=== PATIENT | female | born 1985 | race Caucasian/White ===

== ENCOUNTER → 2018-03-25 15:26 | Outpatient (CLI) | payer BC, SELFPAY ==
[2018-03-25 16:22] LABS: Free T3 2.2 pg/mL (2.18-3.98); T4 Free Direct 0.95 ng/dL (0.76-1.46)
== END ==
PROVIDERS: Visit Provider Obstetrics & Gynecology
DX: N92.1 Excessive and frequent menstruation with irregular cycle (principal)
CPT/HCPCS: 36415; 84439; 84443; 84481

== ENCOUNTER → 2018-03-28 14:00 | Outpatient (CLI) | payer BC, SELFPAY ==
[2018-03-28 15:58] LABS: Progesterone Level 0.89 ng/mL (See Comment)
== END ==
PROVIDERS: Visit Provider Obstetrics & Gynecology
DX: N92.1 Excessive and frequent menstruation with irregular cycle (principal)
CPT/HCPCS: 36415; 84144

== ENCOUNTER → 2018-07-23 07:47 | Outpatient (CLI) | payer BC, SELFPAY ==
--- NOTE | 2018-07-23 07:51 | US_ITS ---
STUDY: ULTRASOUND OF THE FEMALE PELVIS - COMPLETE REASON FOR EXAM: Female, 32 years old. Pelvic pain. Irregular menstruations. LMP: April 17, 2018. TECHNIQUE: Transabdominal and Transvaginal TECHNICAL QUALITY: Adequate. COMPARISON: Comparison is made with prior MRI of the pelvis dated February 29, 2016. 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 There are 2 cervixes and 2 uterine horns. The right uterus measures 5.5 cm x 3.3 cm x 2.1 cm. The endometrium measures 9 mm in thickness. The left uterus measures 5.7 cm x 3.4 cm x 2.4 cm. The endometrium measures 5.4 cm. Both cervixes were visualized and are unremarkable. The right ovary is visualized. The right ovary measures 5.4 cm x 3.4 cm x 4.1 cm. There is a 2.2 cm x 2.3 cm x 1.8 cm cyst in the right ovary. There is no visualized right adnexal mass or complex lesion. There is normal arterial and normal venous vascularity. The left ovary is visualized. The left ovary measures 3 cm x 2.5 cm x 1.8 cm. A dominant follicle measuring 1.8 cm x 1.8 cm x 1.3 cm is seen within the left ovary. There is no visualized left adnexal mass or complex lesion. There is normal arterial and normal venous vascularity. There is no fluid in the cul-de-sac. The pre void volume of the bladder was 325 ml. Polycystic ovary disease: No. US/Transvaginal Non- IMPRESSION: Uterus didelphys. Right ovarian cyst. Electronically Signed: Sebastien Kruger MD at 8:42 EST , Service support ,
--- NOTE | 2018-07-23 07:51 | US_ITS ---
STUDY: ULTRASOUND OF THE FEMALE PELVIS - COMPLETE REASON FOR EXAM: Female, 32 years old. Pelvic pain. Irregular menstruations. LMP: April 17, 2018. TECHNIQUE: Transabdominal and Transvaginal TECHNICAL QUALITY: Adequate. COMPARISON: Comparison is made with prior MRI of the pelvis dated February 29, 2016. 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 There are 2 cervixes and 2 uterine horns. The right uterus measures 5.5 cm x 3.3 cm x 2.1 cm. The endometrium measures 9 mm in thickness. The left uterus measures 5.7 cm x 3.4 cm x 2.4 cm. The endometrium measures 5.4 cm. Both cervixes were visualized and are unremarkable. The right ovary is visualized. The right ovary measures 5.4 cm x 3.4 cm x 4.1 cm. There is a 2.2 cm x 2.3 cm x 1.8 cm cyst in the right ovary. There is no visualized right adnexal mass or complex lesion. There is normal arterial and normal venous vascularity. The left ovary is visualized. The left ovary measures 3 cm x 2.5 cm x 1.8 cm. A dominant follicle measuring 1.8 cm x 1.8 cm x 1.3 cm is seen within the left ovary. There is no visualized left adnexal mass or complex lesion. There is normal arterial and normal venous vascularity. There is no fluid in the cul-de-sac. The pre void volume of the bladder was 325 ml. Polycystic ovary disease: No. US/Pelvic (Non ) IMPRESSION: Uterus didelphys. Right ovarian cyst. Electronically Signed: Sebastien Kruger MD at 8:42 EST , Service support ,
== END ==
PROVIDERS: Family Provider Family Medicine; PCP Family Medicine; Referring Provider Family Medicine; Visit Provider Family Medicine
DX: N92.6 Irregular menstruation, unspecified (principal)
CPT/HCPCS: 76830; 76856; 93976

== ENCOUNTER → 2018-07-25 10:51 | Outpatient (CLI) | payer BC, SELFPAY ==
[2018-07-25 12:48] LABS: Estradiol 25.1 pg/mL; Follicle Stimulating Hormone 9.9 mIU/mL; Free T3 2.7 pg/mL (2.18-3.98); Luteinizing Hormone 9.5 mIU/mL; T4 Free Direct 1.07 ng/dL (0.76-1.46); Thyroid Stim Hormone (TSH) 1.56 uIU/mL (0.358-3.74)
[2018-07-26 10:29] LABS: Insulin 10.6 mU/L (2.6-37.6); Progesterone Level 2.47 ng/mL (See Comment)
[2018-07-27 20:07] LABS: Testosterone, % Free 1.25 % (0.50-2.80); Testosterone, Free < 0.04 ng/dL (0.10-0.85); Testosterone, Total < 3 ng/dL (8-48)
[2018-07-28 14:24] LABS: DHEA Sulfate 121.7 ug/dL (84.8-378.0)
== END ==
PROVIDERS: Family Provider Family Medicine; PCP Family Medicine; Visit Provider Family Medicine
DX: R53.83 Other fatigue (principal); N92.1 Excessive and frequent menstruation with irregular cycle
CPT/HCPCS: 36415; 82627; 82670; 83001; 83002; 83525; 84144; 84402; 84403; 84439; 84443; 84481; 82626

== ENCOUNTER → 2019-06-03 14:49 | Outpatient (CLI) | payer BC, SELFPAY | PROVIDERS: Family Provider Family Medicine; PCP Family Medicine; Visit Provider Family Medicine | DX: N39.0 Urinary tract infection, site not specified (principal) | CPT/HCPCS: 87077; 87086; 87088; 87186 ==

== ENCOUNTER → 2019-06-24 16:30 | Outpatient (CLI) | payer BC, SELFPAY ==
[2019-06-28 15:24] LABS: HPV APTIMA, High Risk Negative (Negative); HPV Reflexed? YES, CHARGE PATIENT
== END ==
PROVIDERS: Visit Provider Obstetrics & Gynecology
DX: Z12.4 Encounter for screening for malignant neoplasm of cervix (principal)
CPT/HCPCS: 87624; 88175; G0145

== ENCOUNTER → 2019-08-28 14:51 | Outpatient (CLI) | payer OTHER, SELFPAY ==
--- NOTE | 2019-08-28 15:12 | RAD_ITS ---
STUDY: HYSTEROSALPINGOGRAM. REASON FOR EXAM: Female, 34 years old. Infertility FLUOROSCOPY TIME (if supplied): ( 2 minutes ) minutes/seconds TECHNIQUE: A hysterosalpingogram was performed by the stone finisher. Imaging was performed. COMPARISON: None. FINDINGS: There is evidence of a uterus didelphys. The right side of the uterus was catheterized. The right fallopian tube is patent with free spill. Catheterization of the left side demonstrating a connection within a tubular structure most likely representing the left ureter. RAD/Salpingogram IMPRESSION: Uterus didelphys with patency of the right fallopian tube. Tubular structure on the left side suggestive of connection with the left ureter. Electronically Signed: Sebastien Kruger, at 8:07 EDT , Service support ,
== END ==
PROVIDERS: PCP Family Medicine; Referring Provider Obstetrics & Gynecology; Visit Provider Obstetrics & Gynecology
DX: N70.91 Salpingitis, unspecified (principal)
CPT/HCPCS: 58340; 74740; Q9967

== ENCOUNTER → 2020-01-13 13:33 | Outpatient (CLI) | payer OTHER, SELFPAY | PROVIDERS: PCP Family Medicine; Visit Provider Family Medicine Hospice and Palliative Medicine | DX: Z11.59 Encounter for screening for other viral diseases (principal) | CPT/HCPCS: 87635; 94799; U0003 ==

== ENCOUNTER → 2020-10-11 09:03 | Outpatient (CLI) | payer BC, SELFPAY ==
--- NOTE | 2020-10-11 09:15 | RAD_ITS ---
STUDY: X-RAY - ABDOMEN/PELVIS REASON FOR EXAM: Female, 35 years old. ANORECTAL MALFORMATION TECHNIQUE: Single AP view of the abdomen / pelvis. COMPARISON: None. FINDINGS: Normal visualized lung bases. There is an abundance of fecal material throughout the colon. A catheter is seen in the left mid abdomen. The visualized liver, spleen and kidneys are grossly normal in size and morphology. Normal soft tissue structures. Normal visualized osseous structures. RAD/Abdomen Single View IMPRESSION: Large amount of fecal material is seen in the colon. Electronically Signed: Sebastien Kruger MD at 13:31 EDT , Service support ,
== END ==
PROVIDERS: PCP Family Medicine
DX: Q43.9 Congenital malformation of intestine, unspecified (principal)
CPT/HCPCS: 74018

== ENCOUNTER 2021-01-03 10:07 | Emergency (ER) | payer BC, SELFPAY ==
[2021-01-03 10:08] VITALS: BP 110/63; PULSE 108; RESP 18; TEMP 37; O2SAT 97; BMI 26.3
--- NOTE | 2021-01-03 10:24 | CT_ITS ---
STUDY: CT ABDOMEN AND PELVIS WITHOUT CONTRAST REASON FOR EXAM: Female, 35 years old. Left-sided flank pain. UTI. RADIATION DOSAGE (If Supplied By Facility): CTDIvol = ( 7.18 ) mGy, DLP = ( 376.96 ) mGycm TECHNIQUE: Transaxial images were obtained from the dome of the diaphragm to the symphysis pubis without oral contrast, and without intravenous contrast. Sagittal and coronal images were reconstructed. Individualized dose optimization techniques were used for this CT. COMPARISON: Comparison is made with prior examination 03/25/2016. FINDINGS: The visualized lung bases are unremarkable. The visualized portions of the heart are within normal limits. Normal liver. Normal gallbladder and extrahepatic biliary system. Normal spleen. Normal pancreas. Normal bilateral adrenal glands. 6 mm calculus in the anterior lower pole calyx of the right kidney. 2.5 mm calculus in the upper mid pole calyx of the left kidney. Stable bilateral extrarenal pelves/mild hydronephrosis. Normal visualized stomach. Normal small intestine. Normal colon. The appendix is visualized and appears normal. Normal abdominal aorta. Normal inferior vena cava. Normal retroperitoneum. Diffuse thickening of the urinary bladder wall slightly worse on the left side. The previously seen complex cystic mass in the right adnexa and pelvis has decreased in size. It presently measures 6.4 cm x 3.5 cm. The patient is known to have uterine duplication. A catheter is seen entering the region of the umbilicus into mid jejunal bowel loops. There is evidence of an anastomotic site in the mid jejunum. Normal abdominal wall. Normal osseous structures. CT/Abdomen/Pelvis without Cont IMPRESSION: Small bilateral nonobstructive intrarenal calculi. Persistent complex cystic mass in the right adnexa although it has decreased in size as compared to prior study. Electronically Signed: Sebastien Kruger MD at 12:24 EDT , Service support ,
--- NOTE | 2021-01-03 10:26 | RAD_ITS ---
STUDY: X-RAY CHEST REASON FOR EXAM: Female, 35 years old. Cough TECHNIQUE: PA and lateral views of the chest. COMPARISON: Comparison is made with prior study dated 03/26/2016. FINDINGS: The lungs are clear and expanded. There is no demonstrated pleural abnormality. Normal size heart. Normal mediastinum and radha. Normal visualized pulmonary arteries. Normal visualized aortic arch and descending thoracic aorta. There is a dextroscoliosis of the thoracic spine. Normal visualized ribs, clavicles, and shoulders. There is no demonstrated abnormality of the visualized soft tissue structures of the upper abdomen. RAD/Chest PA and Lateral IMPRESSION: No acute abnormality is seen. Electronically Signed: Sebastien Kruger MD at 12:25 EDT , Service support ,
--- NOTE | 2021-01-03 10:35 | ED.VIS.GI ---
HPI HPI - GI History of Present Illness Chief Complaint: Flank Pain Narrative Narrative: Patient presenting for evaluation secondary to fevers, cough, nausea vomiting, abdominal pain and flank pain. Patient has a underlying history of multiple abdominal surgeries secondary to congenital GI and history. Patient reports that since Sunday, 6 days ago she has been dealing with fevers at home as high as 103. She reports that these will intermittently break with use of antipyretics such as Tylenol and ibuprofen. She reports that its been associated with a nonproductive cough, she had a coronavirus test performed on Sunday but has not had the results. Patient's also states that its been associated with nausea, and vomiting. Emesis is nonbloody nonbilious she denies any diarrhea she does have some suprapubic and left-sided flank pain. No exacerbating relieving factors with this she states that she has a known history of a kidney stone in her right kidney. She denies any hematuria. She denies any dysuria associated with this. Review of systems otherwise negative. [facility] Medical History (Updated 01/03/21 @ 12:[address] 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 UTI (urinary tract infection) Home Medications bupropion HCl [Wellbutrin SR] 150 mg PO DAILY 01/03/21 [History Last Taken Unknown] cefdinir 300 mg PO BID #20 cap 01/03/21 [Rx Last Taken Unknown] ondansetron 8 mg PO Q8H PRN PRN #20 tab 01/03/21 [Rx Last Taken Unknown] Allergy/AdvReac Type Severity Reaction Status Date / Time ampicillin Allergy Hives Verified 01/03/21 10:08 Social History Smoking Status: Never smoker ROS ROS ED Constitutional Constitutional ED: Reports chills, fever(s) and sweats ENT ENT ED: Denies sore throat Cardiovascular Cardiovascular: Denies chest pain Respiratory/Chest Respiratory/Chest: Reports cough Gastrointestinal Gastrointestinal: Reports abdominal pain, nausea and vomiting Genitourinary Genitourinary ED: Denies dysuria, hematuria or urinary frequency Musculoskeletal Musculoskeletal: Denies myalgias Integumentary Denies rash Neurologic Neurologic: Denies paresthesias or weakness Psychiatric Psychiatric: Denies depression Endocrine Endocrinology: Denies polyuria Hematologic/Lymphatic Hematologic/Lymphatic: Denies easy bleeding or easy bruising Allergic/Immunologic Allergic/Immunologic ED: Denies urticaria EXAM Physical Exam Const Vital Signs: 01/03/21 10:08 01/03/21 11:03 01/03/21 12:19 Temperature 98.6 F 99.6 F H 98.5 F Temperature Source Temporal Oral Oral Pulse Rate 108 H 91 91 Respiratory Rate 18 20 H 20 H Blood Pressure 110/63 122/68 H 121/70 H Blood Pressure Mean 78 86 87 Pulse Ox 97 98 100 Oxygen Delivery Method Room Air Room Air Room Air Positive well nourished and well developed General Appearance ED: well developed and NAD HEENT Reports dry mucous membranes normocephalic and atraumatic Mouth ED: Yes dry mucous membranes Mouth: dry mucous membranes Eyes EOMs intact bilaterally General Eye ED: Negative for pale conjunctiva or scleral icterus Neck no lymphadenopathy and supple Resp normal respiratory effort and clear to auscultation bilaterally Cardio regular rate, regular rhythm, no murmurs and peripheral pulses 2+ throughout GI non-distended and no masses Palpation: soft and tender suprapubic; Negative for guarding, rigid or rebound tenderness present Back/Spine no CVA tenderness Back/Spine Narrative: Well-healed incision over the lumbar spine Extremity full ROM General Extremety ED: Negative for edema General Extremity: Negative for edema Neuro moves all extremities and no sensory deficits noted Sensorium / Orientation: alert, oriented to person, oriented to place and oriented to time Motor Exam: strength 5/5 throughout Psych mental status grossly normal Skin Rashes: no rashes MDM MDM MDM Narrative Medical decision making narrative: Patient presented for evaluation secondary to a febrile illness. Sepsis work-up was obtained as she was tachycardic and likely has an infection. IV was established patient was given Toradol fluids and Zofran. Patient was noted to have a leukocytosis of 14,000 with a neutrophilic predominance. Urinalysis demonstrated significant infection with 25-50 white cells with positive nitrates and 2+ bacteria. test was found to be negative. Chemistry does show the patient to be slightly hypokalemic at 3.1, patient was recommended to increase her potassium intake. Patient's lactic acid was found to be within normal limits. Chest x-ray by my personal review as well as radiology was negative. CT abdomen and pelvis per radiology shows no signs of obstructive uropathy, and shows chronic changes with the patient's pelvic cystic mass actually improved in size. Patient is nontoxic-appearing, she does technically meet sepsis criteria but she is otherwise healthy and I do not think that she requires admission. She was given a first dose of Rocephin in the emergency department. Patient be sent home with a course of cefdinir and Zofran. She was educated on signs and symptoms which to return. Patient was discharged in improved condition. Lab Data Labs: Laboratory Results - last 24 hr 01/03/21 01/03/21 01/03/21 10:55 11:00 11:00 WBC 14.1 H RBC 4.48 Hgb 13.5 Hct 41.7 MCV 93.1 MCH 30.1 MCHC 32.4 RDW Std Deviation 44.9 H RDW Coeff of Alexander 13.1 Plt Count 242 MPV 10.4 Immature Gran % (Auto) 0.400 Neut % (Auto) 78.1 H Lymph % (Auto) 10.3 L [place] % (Auto) 11.0 H Eos % (Auto) 0.0 Baso % (Auto) 0.2 Absolute Neuts (auto) 11.0 H Absolute Lymphs (auto) 1.46 Nucleated RBC % 0 [address] Review May foll Sodium Potassium Chloride Carbon Dioxide Anion Gap BUN Creatinine Estim Creat Clear Calc Est GFR (MDRD) Af Amer Est GFR (MDRD) Non-Af BUN/Creatinine Ratio Glucose Lactic Acid 1.6 Calcium Urine Color Yellow Urine Clarity Sl. Cloudy Urine pH 6.0 Ur Specific [place] 1.015 Urine Protein 30 H Urine Glucose (UA) Normal Urine Ketones 50 H Urine Occult Blood 150 H Urine Nitrite Positive H Urine Bilirubin Negative Urine Urobilinogen Normal Ur Leukocyte Esterase 500 H Urine RBC 10-25 SEEN Urine WBC 25-50 SEEN Ur Squamous Epith Cells 0-5 SEEN Urine Bacteria 2+ Urine Mucus 2+ Urine Test Negative 01/03/21 11:00 WBC RBC Hgb Hct MCV MCH MCHC RDW Std Deviation RDW Coeff of [place] Plt Count MPV Immature Gran % (Auto) Neut % (Auto) Lymph % (Auto) [place] % (Auto) Eos % (Auto) Baso % (Auto) Absolute Neuts (auto) Absolute Lymphs (auto) Nucleated RBC % Diff Path Review Sodium 135 L Potassium 3.1 L Chloride 100 Carbon Dioxide 27.0 Anion Gap 8 BUN 12 Creatinine 1.19 H Estim Creat Clear Calc 57.52 Est GFR (MDRD) Af Amer 67 Est GFR (MDRD) Non-Af 55 L BUN/Creatinine Ratio 10.1 Glucose 89 Lactic Acid Calcium 8.9 Urine Color Urine Clarity Urine pH Ur Specific [place] Urine Protein Urine Glucose (UA) Urine Ketones Urine Occult Blood Urine Nitrite Urine Bilirubin Urine Urobilinogen Ur Leukocyte Esterase Urine RBC Urine WBC Ur Squamous Epith Cells Urine Bacteria Urine Mucus Urine Test Radiography Diagnostic Testing: Radiology Impression Abdomen/Pelvis CT 01/03/21 10:24 IMPRESSION: Small bilateral nonobstructive intrarenal calculi. Persistent complex cystic mass in the right adnexa although it has decreased in size as compared to prior study. Electronically Signed: Sebastien Kruger MD at 12:24 EDT , Service support , Chest X-Ray 01/03/21 10:26 IMPRESSION: No acute abnormality is seen. Electronically Signed: Sebastien Kruger MD at 12:25 EDT , Service support , Discharge Plan Triage Chief Complaint: Flank Pain ED Provider: Bradley Fofana Dx/Rx/DC Orders Clinical Impression: Pyelonephritis, Hypokalemia Instructions: ED Hypokalemia, ED Pyelonephritis, Female (Adult) Prescriptions: New cefdinir 300 mg capsule 300 mg PO BID Qty: 20 RF: 0 ondansetron 4 mg tablet,disintegrating 8 mg PO Q8H PRN PRN (Reason: Nausea) Qty: 20 RF: 0 No Action bupropion HCl [Wellbutrin SR] 150 mg Tablet Sustained-Release 12 Hr 150 mg PO DAILY RF: 0 Primary Care Provider: Imani Helm Referrals: Imani Helm DO [Primary Care Provider] - 2 Days Disposition Disposition: Home, Self Care
[2021-01-03] MEDS: 0.9% Normal Saline 1,000 ML 1000 ML IV (10:56)
[2021-01-03] MEDS: Ondansetron 4 MG/2 ML Vial IV (10:57)
[2021-01-03] MEDS: Ketorolac 15 MG/ML Vial IV (10:57)
--- NOTE | 2021-01-03 11:02 | ED.RN ---
Pt self-cathed to obtain urine sample
[2021-01-03 11:03] VITALS: BP 122/68; PULSE 91; RESP 20; TEMP 37.6; O2SAT 98
[2021-01-03 11:20] LABS: Absolute Lymphocyte Count 1.46 X10^3/uL (0.83-4.51); Basophil# 0.03 X10^3/uL; Basophil% 0.2 % (0-1); Hematocrit 41.7 % (37-47); Hemoglobin 13.5 g/dL (12.0-15.0); Lymphocyte # 1.46 X10^3/ul (0.83-4.51); Lymphocyte % 10.3 % (19-41); Mean Corp Hgb Conc 32.4 g/dL (32-36); Mean Corpuscular Hgb 30.1 pg (27.0-32.0); Mean Corpuscular Volume 93.1 fL (81-99); Mean Platelet Vol. 10.4 fl (6.2-12.0); Monocyte# 1.55 X10^3/uL; NRBC Flagged by Analyzer 0 % (0-5); Neutrophil # 11.01 X10^3/uL (2.7-7.7); Neutrophil % 78.1 % (47-70); POSITIVE DIFFERENTIAL YES; Platelet Count 242 K/mm3 (150-450); RBC Distribution Width CV 13.1 % (11.6-14.6); RBC Distribution Width SD 44.9 fl (35.1-43.9); Red Blood Count 4.48 M/mm3 (4.2-5.4); White Blood Count 14.1 K/mm3 (4.4-11.0)
[2021-01-03 11:34] LABS: Color, Urine Yellow (Yellow); Glucose, Dipstick Normal (Normal); Ketone-Dipstick 50 mg/dl (Negative); Leukocyte Esterase-Dipstick 500 /ul (Negative); Nitrite-Dipstick Positive (Negative); Occult Blood-Urine 150 /ul (Negative); Protein-Dipstick 30 mg/dl (Negative); Specific Gravity, Urine 1.015 (1.002-1.030); Urine Bilirubin Dipstick Negative (Negative); Urine Clarity Sl. Cloudy (Clear); Urine Urobilinogen Normal (Normal)
[2021-01-03 11:34] LABS: Anion Gap 8 (5-15); BUN 12 mg/dL (7-18); BUN/Creat Ratio 10.1 RATIO (10-20); Calcium,Total 8.9 mg/dL (8.5-10.1); Chloride 100 mmol/L (98-107); Creatinine, Serum 1.19 mg/dL (0.55-1.02); EST Glomerular Filtration Rate 55 mL/min (>60); Est Glom Filt Rate - Afr Amer 67 mL/min (>60); Estimated Creatinine Clearance 57.52 ml/min; Glucose 89 mg/dL (74-106); Potassium 3.1 mmol/L (3.5-5.1); Sodium Level 135 mmol/L (136-145)
--- NOTE | 2021-01-03 11:36 | ED.RN ---
Pt states that she needs to go home and check on her son. Signed out AMA
[2021-01-03 11:40] LABS: Bacteria 2+ /hpf (None Seen); Internal QC Validated? YES +Cl - CLEAR BKGD; Mucous, Urine 2+ /hpf (<or=2+); Pregnancy, Urine Negative Negative; Red Blood Cells-Urine 10-25 SEEN /hpf (0-5); Squamous Epithelial Cells - UA 0-5 SEEN /hpf (5-10); White Blood Cells 25-50 SEEN /hpf (0-5)
[2021-01-03 11:44] LABS: Lactic Acid 1.6 mmol/L (0.4-1.9)
[2021-01-03 11:49] LABS: Differential Indicated SCAN CRITERIA MET
[2021-01-03 12:19] VITALS: BP 121/70; PULSE 91; RESP 20; TEMP 36.9; O2SAT 100
[2021-01-03] MEDS: Ceftriaxone 1 GM/50 ML BAG IV (13:56)
[2021-01-03 14:34] VITALS: BP 114/65; PULSE 83; RESP 16
[2021-01-04 12:40] LABS: Pathologist Review Reviewed
== END 2021-01-03 14:35 | disposition home or self-care (01) ==
PROVIDERS: Emergency Provider Emergency Medicine; PCP Family Medicine
DX: N12 Tubulo-interstitial nephritis, not specified as acute or chronic (principal); E87.6 Hypokalemia; N20.0 Calculus of kidney; Q06.8 Other specified congenital malformations of spinal cord; Z79.899 Other long term (current) drug therapy
CPT/HCPCS: 36415; 71046; 74176; 80048; 81001; 81025; 83605; 85025; 87040; 87086; 87088; 87186; 96361; 96365; 96375; 99283; A4216; J2405

== ENCOUNTER → 2024-10-24 | Outpatient (CLI) | payer BC, SELFPAY ==
[2024-10-27 22:06] LABS: Chlamydia By Nucleic Acid AMP Negative (Negative); Gonococcus By Nucleic Acid AMP Negative (Negative)
== END | disposition home or self-care (01) ==
LOC: LABSPEC 15:21
PROVIDERS: PCP Family Medicine; Referring Provider Obstetrics & Gynecology; Visit Provider Obstetrics & Gynecology
DX: O09.90 Supervision of high risk pregnancy, unspecified, unspecified trimester (principal); Z3A.00 Weeks of gestation of pregnancy not specified
CPT/HCPCS: 87077; 87086; 87088; 87186; 87491; 87591

== ENCOUNTER → 2024-10-30 | Outpatient (CLI) | payer BC, SELFPAY ==
[2024-10-30 12:15] LABS: Absolute Lymphocyte Count 2.06 X10^3/uL (0.83-4.51); Absolute Neutrophil Count 5.6 X10^3/uL (2.0-7.7); Basophil# 0.05 X10^3/uL; Basophil% 0.6 % (0-1); Eosinophil# 0.08 X10^3/uL; Eosinophils% 0.9 % (0-5); Hematocrit 41.8 % (37-47); Hemoglobin 13.7 g/dL (12.0-15.0); Lymphocyte # 2.06 X10^3/ul (0.83-4.51); Lymphocyte % 24.3 % (19-41); Mean Corp Hgb Conc 32.8 g/dL (32-36); Mean Corpuscular Hgb 30.3 pg (27.0-32.0); Mean Corpuscular Volume 92.5 fL (81-99); Mean Platelet Vol. 10.5 fl (6.2-12.0); Monocyte# 0.67 X10^3/uL; Monocyte% 7.9 % (0-10); NRBC Flagged by Analyzer 0 % (0-5); Neutrophil # 5.61 X10^3/uL (2.7-7.7); Neutrophil % 66.1 % (47-70); Platelet Count 320 K/mm3 (150-450); RBC Distribution Width CV 12.9 % (11.6-14.6); RBC Distribution Width SD 43.1 fl (35.1-43.9); Red Blood Count 4.52 M/mm3 (4.2-5.4); White Blood Count 8.5 K/mm3 (4.4-11.0)
[2024-10-30 13:20] LABS: HIV Nonreactive (Nonreactive); Hepatitis B Surface Antigen Nonreactive (Nonreactive); Hepatitis C Antibody Nonreactive (Nonreactive); Rubella IgG REAC (Nonreactive); Syphilis Antibodies Nonreactive (Nonreactive)
== END | disposition home or self-care (01) ==
PROVIDERS: PCP Family Medicine; Referring Provider Obstetrics & Gynecology; Visit Provider Obstetrics & Gynecology
DX: O99.280 Endocrine, nutritional and metabolic diseases complicating pregnancy, unspecified trimester (principal); Z3A.00 Weeks of gestation of pregnancy not specified; E03.9 Hypothyroidism, unspecified
CPT/HCPCS: 36415; 84439; 84443; 85025; 86703; 86762; 86780; 86803; 86850; 86900; 86901; 87340

== ENCOUNTER → 2024-11-06 | Outpatient (CLI) | payer BC, SELFPAY | END | disposition home or self-care (01) | LOC: LABSPEC 14:58 | PROVIDERS: PCP Family Medicine; Referring Provider Obstetrics & Gynecology; Visit Provider Obstetrics & Gynecology | DX: O23.40 Unspecified infection of urinary tract in pregnancy, unspecified trimester (principal); Z3A.00 Weeks of gestation of pregnancy not specified | CPT/HCPCS: 87086 ==

== ENCOUNTER → 2024-11-18 | Outpatient (CLI) | payer BC, SELFPAY ==
--- NOTE | 2024-11-18 14:25 | US_ITS ---
PROCEDURE: TRANSVAGINAL W/PREG US 11/18/2024 REASON FOR EXAM: SPOTTING IN EARLY TECHNIQUE: High resolution obstetric ultrasound performed using a 2D transducer. Transvaginal ultrasound imaging. Standard views obtained, including biometry, anatomy survey, and Doppler studies. COMPARISON: None FINDINGS Live intrauterine with gestational sac measuring 5.3 cm corresponding with gestational age of 11 weeks and 1 day. Shape of the gestational sac is within normal limits. Yolk sac is not visualized at this time. Embryo CRL measures 6.45 cm corresponding with gestational age of 12 weeks and 5 days. heart rate of 164 beats per minute. Overall estimated gestational age of 12 weeks and 0 days with estimated delivery date of 06/02/2025. Uterus measures 15.8 x 9.4 x 6.7 cm. No fibroids. Cervix is closed. No significant fluid within the cul-de-sac. Bilateral ovaries are not well visualized. US/Transvaginal w/Preg US IMPRESSION: Live intrauterine gestational with sonographic gestational age of 12 weeks and 0 days with estimated delivery date of 06/02/2025. No sonographic evidence of significant abnormalities. Bilateral o varies are not well seen. Reading Location: [id number]
== END | disposition home or self-care (01) ==
LOC: US 14:25
PROVIDERS: PCP Family Medicine; Referring Provider Nurse Practitioner Women's Health; Visit Provider Nurse Practitioner Women's Health
DX: O26.851 Spotting complicating pregnancy, first trimester (principal); Z3A.11 11 weeks gestation of pregnancy; O99.891 Other specified diseases and conditions complicating pregnancy; R30.0 Dysuria
CPT/HCPCS: 76817; 87077; 87086; 87088; 87186

== ENCOUNTER → 2024-12-03 | Outpatient (CLI) | payer BC, SELFPAY ==
--- OUTSIDE RECORDS SUMMARY | 2024-12-03 22:31 | XMS RPT_ITS | CCD ---
Author Organization [facility] Care Team Providers Care 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 Name Role Phone MERLIN CALDERA Attending Unavailable MERLIN CALDERA Primary Care Unavailable MERLIN CALDERA Admitting Unavailable Malys DO, Imani Gary Primary Care Provider [phone] Malys DO, Imani A Primary Care Provider Malys DO, Imani A Primary Care Provider Malys DO, Imani A Primary Care Provider SOREN SEBASTIAN Referring Unavailabl e SOREN SEBASTIAN Attending Unavailabl e MALYS, IMANI A Primary Care Unavailable CENE CITY PLANNER~[phone], EDINSON Tuttle Admitting Unavailable CENE CITY PLANNER~[phone], EDINSON Tuttle Attending Unavailable MALYS, IMANI A Primary Care Unavailable ISRRAEL MART~[phone], ISRRAEL An Admitting Unavailable ISRRAEL MART~[phone], ISRRAEL nA Attending Unavailable TONE GAGE CRNAIA L Consulting Unavaila ble MALYS, IMANI A Primary Care Unavailable MARONI SLICING MACHINE TENDER MELVIN L Consulting Unavaila ble LEONIE MART, ISIDRA Consulting Unavailable LEONIE MART, ISIDRA Consulting Unavailable MALYS, IMANI A Primary Care Unavailable DUDZIAK, STUART Referring Unavailable MALYS, IMANI A Primary Care Unavailable DUDZIAK, STUART Referring Unavailable DUDZIAK, STUART Referring Unavailable MALYS, IMANI A Primary Care Unavailable MALYS, IMANI A Primary Care Unavailable DUDZIAK, STUART Referring Unavailable Malys, Imani A Primary Care Provider MANUEL SORTO Attending Unavailable JESSE EDWARDS Referring Unavailable CHAITANYA AKINS Referring UnavailANDRES Santizo Attending Unavailable CHAITANYA AKINS Referring Unavailabl e ANDRES FITZGERALD Referring Unavailable CARLOS AKISHRIAON, JESSE Referring Unavailable Malys , Dr. Diallo Primary Care Provider [phone] Alicja DO, Dr. Diallo Referring Provider Beatriz MART, Dr. Bright Attending Provider Bear Brenner DO, Dr. Valerio Attending Provider Beatriz MART, Dr. Bright Referring Provider [phone] Franklin DREDGE CAPTAIN-C, Jesse Attending Provider [phone] Yuliet DREDGE CAPTAIN-C, Jesse Referring Provider [phone] MALYS, IMANI A Primary Care Unavailable SANTIAGO WELLS Attending Unavailable MARCANTHONY, KAILA E Referring Unavailabl e MALYS, IMANI A Primary Care Unavailable SANTIAGO WELLS Attending Unavailable MARCANTHONY, KAILA Azar Referring Unavailabl e Malys, Imani Referring Unavailable Marcanthony, Kaila Attending Unavailable Malys, Imani Primary Care Unavailable Malys, Imani Referring Unavailable Velde, Iman Sifuentes Attending Unavailabl e Malys, Imani Primary Care Unavailable Malys, Imani Referring Unavailable Marcanthony, Kaila Attending Unavailable Malys, Imani Primary Care Unavailable Malys, Imani Primary Care Unavailable Malys, Imani Referring Unavailable Velde, Iman Sifuentes Attending Unavailabl e Malys, Imani Referring Unavailable Franklin DREDGE CAPTAIN, Jesse Attending Unavailable Malys, Imani Primary Care Unavailable Marcanthony, Kaila Attending Unavailable Malys, Imani Primary Care Unavailable Marcanthony, Kaila Referring Unavailable Marcanthony, Kaila Attending Unavailable Malys, Imani Primary Care Unavailable Marcanthony, Kaila Referring Unavailable Malys, Imani Primary Care Unavailable Yuliet DREDGE CAPTAIN, Jesse Referring Unavailable Franklin DREDGE CAPTAIN, Jesse Attending Unavailable Marcanthony, Kaila Referring Unavailable Malys, Imani Primary Care Unavailable Marcanthony, Kaila Attending Unavailable Malys, Imani Referring Unavailable Malys, Imani Primary Care Unavailable Marcanthony, Kaila Attending Unavailable Malys, Imani Referring Unavailable Malys, Imani Primary Care Unavailable Marcanthony, Kaila Attending Unavailable Allergies Allergy Classification Reported Allergen(s) Allergy Type Date of Onset Reaction(s) Facility (20 sources) Ampicillin; Translations: [AMPICILLIN] Drug Allergy Other: See Comments, [facility] (1 source) Ampicillin Drug Allergy [facility] Repository (1 source) Ampicillin Drug Allergy [facility] Repository Medications Current Medications Medication Drug Class(es) Dates Sig (Normalized) Sig (Original) aspirin 81 mg delayed release oral tablet (8 sources) Platelet Aggregation Inhibitor, Nonsteroidal Anti-inflammatory Drug Start: 10-14-2024 take 1 tablet by mouth once daily Aspirin 81 mg tablet,delayed release (DR/EC) Active 81 mg PO daily October 14, 2024 12:00am castile soap packets for enema use (10 sources) Start: 12-01-2021 take 1 dose rectal route once daily, then take 1 dose rectal route once daily castile soap packets for enema use Insert 1 Packet into rectum once daily. Add 1 packet daily to antegrade enema 30 Packet 11 12/01/2021 Active choline bitartrate 250 mg oral tablet (8 sources) Start: 10-14-2024 take 1 tablet by mouth once daily Choline 250 mg tablet Active 250 mg PO daily October 14, 2024 12:00am ergocalciferol, vitamin D2, (VITAMIN D ORAL) (12 sources) ergocalciferol, vitamin D2, (VITAMIN D ORAL) Take by mouth. Active ergocalciferol, vitamin D2, (VITAMIN D ORAL) Take by mouth. 0 Active fosfomycin 3000 mg powder for oral solution (2 sources) Start: 11-22-2024 take 3 g by mouth once Fosfomycin Tromethamine 3 gram packet Active 3 g PO ONCE 1 November 22, 2024 12:00am glycerin 1000 mg/ml enema (20 sources) Non-Standardized Chemical Allergen Start: 10-14-2024 Glycerin (Laxative) 5.4 gram/5.4 mL solution Active 0 .ROUTE DAILY October 14, 2024 12:00am 30ml daily; apply 30 mL topically once daily glycerin 99.5 % topical solution 30 mL. For use during nightly antegrade enema TAKING WITH 500ML WATER Active Lacto No.08-Chafxj-Yrq-Larch 25B cell-25B cell-50 mg capsule (8 sources) Start: 10-14-2024 Lacto No.24-Yvyxgr-Egq-Larch 25B cell-25B cell-50 mg capsule Active NMA PO October 14, 2024 12:00am Levothyroxine (20 sources) l-Thy roxin e Start: 11-03-2024 take 1 capsule by mouth once daily Levothyroxine 62.5 mcg capsule Active 62.5 ug PO daily November 03, 2024 1:55pm Start: 11-03-2024 End: 11-03-2024 take 1 capsule by mouth once daily Levothyroxine 62.5 mcg capsule Discontinued 62.5 ug PO daily November 03, 2024 12:00am November 03, 2024 1:56pm Start: 10-14-2024 End: 11-03-2024 take 1 capsule by mouth once daily Levothyroxine 75 mcg capsule Discontinued 75 ug PO daily October 14, 2024 12:00am November 03, 2024 10:55am take 1 tablet by jaun th once daily levothyroxine 75 mcg tablet Take 1 tablet by mouth once daily. Active Multivit 43-Yyea-Frjkhh 1-Dh a (Pnv-Dha) 27 mg iron-1 mg -300 mg capsule (8 sources) Start: 10-14-2024 Multivit 47-Ir on-Folate 1-Dha (Pnv-Dha) 27 mg iron-1 mg -300 mg capsule Active NMA PO October 14, 2024 12:00am 25/iron fum/folic/d lozano (-1 ORAL) (12 sources) 25/iron fum/folic/dha (-1 ORAL) Take by mouth. Active 25/iron fum/folic/dha (-1 ORAL) Take by mouth. 0 Active no115/iron/folic ac id ( 19 ORAL) (7 sources) no115/i adama/folic acid ( 19 ORAL) Take 1 Application by mouth. Active no115/i adama/folic acid ( 19 ORAL) Take 1 Application by mouth. 0 Active Soap soap (8 sources) Start: 10-14-2024 Soap soap Acti ve NMA TOPICAL October 14, 2024 12:00am sodium chloride 0.154 meq/ml irrigation solution (12 sources) Start: 09-15-2010 sodium chlorid e 0.9% irrigation soln 0.9 % irrigation irrigation 500 mL by Irrigation route once daily. 09/15/2010 Active sulfamethoxazole 800 mg / trimethoprim 160 mg oral tablet (2 sources) Dihydrofolate Reductase Inhibitor Antibacterial, Sulfonamide Antimicrobial Start: 11-24-2024 Sulfamethoxazole-T rimethoprim (Bactrim Ds) 800-160 mg tablet Active 1 {tbl} PO daily November 24, 2024 12:00am Completed/Discontinued Medications Medication Drug Class(es) Dates Sig (Normalized) Sig (Original) acetaminophen 500 mg oral tablet (20 sources) Start: 03-24-2016 End: 07-30-2018 take 1 tablet by mouth every six hours as needed for pain Acetaminophen 500 MG tablet Discontinued 500 mg PO EVERY 6 HOURS NEEDED as needed for Mild-Mod Pain (-10/25) March 24, 2016 12:00am July 30, 2018 3:57pm End: 08-11-2022 acetaminophen (TYLENOL) 325 mg cap Take by mouth as needed. 0 08/11/2022 Discontinued Comment on above: Take by mouth as nee ded. acetaminophen 300 mg / codeine phosphate 30 mg oral tablet (8 sources) Opioid Agonist Start: 05-24-20 16 End: 07-30-19 19 Acetaminophen-Codei ne 1 TABLET tablet Discontinued 1 - 2 {tbl} PO EVERY 6 HOURS NEEDED as needed for Mod-Severe Pain () May 24, 2016 1:00am July 30, 2018 3:57pm 24 hr amphetamine aspartate 3.75 mg / amphetamine sulfate 3.75 mg / dextroamphetamine saccharate 3.75 mg / dextroamphetamine sulfate 3.75 mg extended release oral capsule (20 sources) Central Nervous System Stimulant take 1 capsule by mouth once daily, then take 1 capsule by mouth every twenty-four hours amphetamine-dextroa mphetamine XR (ADDERALL XR) 15 mg 24 hr capsule Take 15 mg by mouth once daily. 0 Active Comment on above: Take 15 mg by mouth once daily. 12 hr buPROPion hydrochloride 150 mg extended release oral tablet (20 sources) Aminoketone Start: 01-04-20 End: 10-15-19 take 1 tablet by mouth once daily Bupropion Hcl (Wellbutrin Sr) 150 mg Tablet Sustained-Release 12 Hr Discontinued 150 mg PO DAILY January 03, 2021 12:00am October 14, 2024 9:17am Start: 06-27-2019 End: 04-10-2024 take 1 tablet by mouth once daily buPROPion XL (WELLBUTRIN XL) 150 mg 24 hr tablet Take 150 mg by mouth once daily. 0 06/27/2019 Active Comment on above: Take 150 mg by mouth once daily. cephalexin 500 mg oral capsule (8 sources) Cephalosporin Antibacterial Start: 021 End: 025 take 1 capsule by mouth twice daily Cephalexin 500 mg capsule Discontinued 500 mg PO TWICE A DAY 14 January 26, 2021 12:00am October 14, 2024 9:17am cholecalciferol 0.025 mg oral capsule (20 sources) Vitamin D Cholecalciferol, Vitamin D3, (VITAMIN D) 25 mcg (1,000 unit) cap Take 1,000 Units by mouth once daily. 0 Active Comment on above: Take 1,000 Units by mouth once daily. chorionic gonadotropin 75849 unt/ml injectable solution (20 sources) Gonadotropin Start: 023 inject 84979 [IU] by subcutaneous injection once chorionic gonadotropin (PREGNYL) 10,000 unit solr 10,000 Units as directed. Mix vials as directed per nursing in office. Administer subcutaneous. 2 Each 1 08/28/2022 Active Start: 04-11-2022 End: 08-11-2022 inject 29762 [IU] by subcutaneous injection once chorionic gonadotropin (PREGNYL) 10,000 unit solr 10,000 Units as directed. Mix vials as directed per nursing in office. Administer subcutaneous. 2 Each 1 04/11/2022 08/11/2022 Discontinued Start: 07-07-2021 End: 12-26-2021 chorionic gonadotropin (PREG NYL) 10,000 unit solr 10,000 Units as directed. 1 Vial for trigger 10,000 subcutaneously once, other vial mix for low dose HCG 2 Each 1 07/07/2021 12/26/2021 Discontinued Comment on above: 10,000 Units as dire cted. 1 Vial for trigger 10,000 subcutaneously once, other vial mix for low dose HCG 10,000 Units as dire cted. Mix vials as directed per nursing in office. Administer subcutaneous. clomiPHENE citrate 50 mg oral tablet (16 sources) Estrogen Agonist/Antagonist Start: 09-08-19 take 2 tablets by mouth once daily clomiPHENe (SEROPHENE) 50 mg tablet Take 2 tablets by mouth once daily. 10 tablet 0 09/07/2022 Active Comment on above: Take 2 tablets by [facility] once daily. doxycycline hyclate 100 mg oral tablet (20 sources) Tetracycline-class Drug Start: 12-27-19 End: 08-11-19 take 1 tablet by mouth twice daily doxycycline (VIBRA-TABS) 100 mg tablet Take 1 tablet by mouth twice daily. 8 tablet 0 12/26/2021 08/11/2022 Discontinued Comment on above: [facility] estradiol 2 mg oral tablet (20 sources) Estrogen Start: 10-15-19 End: 11-14-19 take 1 tablet by mouth once daily Estradiol 2 mg tablet Discontinued 2 mg PO daily October 14, 2024 12:00am November 13, 2024 8:27am Start: 12-26-2021 End: 08-11-2022 take 3 tablets by mouth once daily estradiol (ESTRACE) 2 mg tablet Take 3 tablets by mouth once daily. 120 tablet 3 12/26/2021 08/11/2022 Discontinued Comment on above: Take 3 tablets by [facility] once daily. Ethinyl Estradiol / ethynodiol (20 sources) Progestin, Estrogen Start: 07-06-2022 take 1 tablet by mouth once daily ethynodiol diacetate-ethinyl estradiol 1 mg-35 mcg (ZOVIA 1/35E, 28,) 1-35 mg-mcg per tablet Take 1 tablet by mouth once daily. 28 tablet 0 07/06/2022 Suspended Start: 07-06-2022 take 1 tablet by jaun once daily ethynodiol diacetate-ethinyl estradiol 1 mg-35 mcg (ZOVIA 1/35E, 28,) 1-35 mg-mcg per tablet Take 1 tablet by mouth once daily. 28 tablet 0 07/06/2022 Active Comment on above: Take 1 tablet by jaun once daily. Ethinyl Estradiol / Norethindrone (20 sources) Estrogen Start: 01-23-2021 End: 08-11-2022 Norethindrone-Eth Estradiol (NECON 0.5/35, 28,) 0.5-35 mg-mcg per tablet Take as directed. Start when instructed by IVF nurse. 1 Package 1 01/23/2021 08/11/2022 Discontinued Start: 01-23-2021 Norethindrone- Eth Estradiol (NECON 0.5/35, 28,) 0.5-35 mg-mcg per tablet Take as directed. Start when instructed by IVF nurse. 1 Package 1 01/23/2021 Active Comment on above: Take as directed. St art when instructed by IVF nurse. 1.08 ml follitropin beta 833 unt/ml cartridge (20 sources) Start: 08-29-19 inject 450 [IU] by subcutaneous injection once daily Follitropin Beta (FOLLISTIM AQ) 900 unit/1.08 mL Inject 450 Units subcutaneously once daily. 5 Each 1 08/28/2022 Active Start: 04-11-2022 End: 08-11-2022 inject 225 [IU] by subcutaneous injection twice daily Follitropin Beta (FOLLISTIM AQ) 900 unit/1.08 mL Inject 225 Units subcutaneously twice daily. 6 Each 1 04/11/2022 08/11/2022 Discontinued Start: 07-07-2021 End: 12-26-2021 inject 200 [IU] by subcutaneous injection once daily Follitropin Beta (FOLLISTIM AQ) 300 unit/0.36 mL Inject 200 Units subcutaneously once daily. 6 Each 3 07/07/2021 12/26/2021 Discontinued Comment on above: Inject 200 Units sub cutaneously once daily. Inject 225 Units sub cutaneously twice daily. Inject 450 Units sub cutaneously once daily. 0.5 ml ganirelix acetate 0.5 mg/ml prefilled syringe (20 sources) Gonadotropin Releasing Hormone Antagonist Start: 08-28-2022 Ganirelix Acetate 250 mcg/0.5 mL Inject 1 syringe daily subcutaneous before 8am. Inject same time each day 7 Each 1 08/28/2022 Active Start: 07-07-2021 End: 12-26-2021 Ganirelix Acetate 250 mcg/0. 5 mL Inject 1 syringe daily subcutaneous before 8am. 7 Each 2 07/07/2021 12/26/2021 Discontinued Comment on above: Inject 1 syringe tanya ly subcutaneous before 8am. Inject 1 syringe tanya ly subcutaneous before 8am. Inject same time each day ioversoL 320 mg iodine/mL injection (Optiray 320) (1 source) Start: 4 End: 4 ioversoL 320 mg iodine/mL injection (Optiray 320) L.Acidoph,Paracase i,B.Animalis 1 EACH capsule (8 sources) Start: 6 End: 9 take 1 capsule by mouth once daily L.Acidoph,Paracasei,B .Animalis 1 EACH capsule Discontinued 1 NMA PO DAILY March 25, 2016 12:00am July 30, 2018 3:58pm letrozole 2.5 mg oral tablet (20 sources) Aromatase Inhibitor Start: 3 End: 3 take 3 tablets by mouth once daily letrozole (FEMARA) 2.5 mg tablet Take 3 tablets by mouth once daily. 15 tablet 0 12/14/2022 Active Start: 06-06-2022 End: 08-11-2022 take 3 tablets by mouth once daily letrozole (FEMARA) 2.5 mg tablet Take 3 tablets by mouth once daily. 15 tablet 0 06/06/2022 08/11/2022 Discontinued Comment on above: Take 3 tablets by mo ut once daily. leuprolide acetate 5 mg/ml injectable solution (20 sources) Gonadotropin Releasing Hormone Receptor Agonist Start: 08-29-19 inject 80 [IU] by subcutaneous injection once leuprolide (LUPRON) 1 mg/0.2 mL Inject 80 units subcutaneous once as directed for Lupron trigger 1 Kit 1 08/28/2022 Active Start: 04-11-2022 End: 08-11-2022 inject 0.5 mL by subcutaneous injection twice daily leuprolide (LUPRON) 1 mg/0.2 mL For microdose leuprolide: inject leuprolide 0.5ml into bacteriostatic sodium chloride 10ml. Inject 40 mcg/0.2ml subcutaneously twice daily 1 Kit 1 04/11/2022 08/11/2022 Discontinued Start: 07-07-2021 End: 12-26-2021 inject 80 [IU] by subcutaneous injection once leuprolide (LUPRON) 1 mg/0.2 mL Inject 80 units subcutaneous once as directed for Lupron trigger 1 Kit 1 07/07/2021 12/26/2021 Discontinued Comment on above: Inject 80 units subc utaneous once as directed for Lupron trigger For microdose leupro lide: inject leuprolide 0.5ml into bacteriostatic sodium chloride 10ml. Inject 40 mcg/0.2ml subcutaneously twice daily lidocaine hydrochloride 0.02 mg/mg topical gel (1 source) Antiarrhythmic, Amide Local Anesthetic Start: 2023 End: 2023 LIDOcaine (PF) 2 % jelly (Urojet) methylPREDNISolone 16 mg oral tablet (20 sources) Corticosteroid Start: 2021 End: 2022 take 1 tablet by mouth once daily methylPREDNISolone (MEDROL) 16 mg tablet Take 1 tablet by mouth once daily. 4 tablet 0 12/26/2021 08/11/2022 Discontinued Comment on above: Take 1 tablet by jaun th once daily. MULTI-VITAMIN ORAL (20 sources) End: 2022 MULTI-VITAMIN ORAL Take by mouth. 0 09/05/2022 Discontinued (Discontinued by Patient) MULTI-VITAMIN OR AL Take by mouth. 0 Suspended MULTI-VITAMIN OR AL Take by mouth. 0 Active Comment on above: Take by mouth. nitrofurantoin, macrocrystals 25 mg / nitrofurantoin, monohydrate 75 mg oral capsule (8 sources) Nitrofuran Antibacterial Start: End: take 1 capsule by mouth twice daily at mealtime Nitrofurantoin Monohyd/M-Cryst (Macrobid) 100 mg capsule Discontinued 100 mg PO TWICE A DAY 14 October 27, 2024 12:00am November 02, 2024 12:00am November 03, 2024 12:08am must administer with a meal/food PNV no.95/ferrous fum/folic ac ( ORAL) (20 sources) PNV no.95/ferrou s fum/folic ac ( ORAL) Take by mouth once daily. 0 Suspended PNV no.95/ferrou s fum/folic ac ( ORAL) Take by mouth once daily. 0 Active Comment on above: Take by mouth once d aily. progesterone 50 mg/ml injectable solution (20 sources) Progesterone Start: End: inject 100 mg by intramuscular injection once daily Progesterone 50 mg/mL oil Discontinued 100 mg IM daily October 14, 2024 12:00am November 13, 2024 8:28am Start: 12-26-2021 End: 08-11-2022 inject 1 mL by intramuscular injection once daily in the morning progesterone 50 mg/mL injection Inject 1 mL intramuscularly once daily. Inject in the morning 90 mL 0 12/26/2021 08/11/2022 Discontinued Comment on above: Inject 1 mL intramus cularly once daily. Inject in the morning Sharps Container-Ins Syrng-Ndl 1/2 mL 30 x 1/2 syrg (20 sources) Start: 08-28-2022 Sharps Container-Ins Syrng-Ndl 1/2 mL 30 x 1/2 syrg 1 Container as directed. For low dose HCG Pregnyl 47753 units with 5ml syringe and needle to mix and 15 insulin syringes. 1 Each 0 08/28/2022 Active Start: 08-28-2022 Sharps Contain er-Ins Syrng-Ndl 1/2 mL 30 x 1/2 syrg 1 Container as directed. Pregnyl trigger [id number] Units #1 with syringes and needles. 1 Each 0 08/28/2022 Active Comment on above: 1 Container as direc jose ramon. For low dose HCG Pregnyl 95102 units with 5ml syringe and needle to mix and 15 insulin syringes. 1 Container as direc jose ramon. Pregnyl trigger [id number] Units #1 with syringes and needles. sodium phosphate, dibasic 59.3 mg/ml / sodium phosphate, monobasic 161 mg/ml enema (20 sources) Start: 05-17-2016 End: 07-30-2018 Sodium Phosphates 1 BOTTLE enema Discontinued 120 mL OTHER ONE TIME May 17, 2016 1:00am July 30, 2018 3:58pm Start: 09-15-2010 sodium phospha adrcy (FLEET ENEMA) 19-7 gram/118 mL rectal enema Indications: bowel evacuation Insert into rectum once daily. 1.5 bottles in henson flush Indications: emptying of the bowel 09/15/2010 Active Syringe, Disposable, 1 mL (20 sources) Start: 04-11-2022 End: 08-11-2022 Syringe, Disposable, 1 mL To be used to mix the microdose Lupron 1 Each 1 04/11/2022 08/11/2022 Discontinued Start: 04-11-2022 Syringe, Dispo sable, 1 mL To be used to mix the microdose Lupron 1 Each 1 04/11/2022 Active Comment on above: To be used to mix th e microdose Lupron ubiquinol (6 sources) End: 04-10-2024 COQ10, UBIQUINOL, ORAL Take by mouth. 0 04/10/2024 Discontinued (No Longer Taking) COQ10, UBIQUINOL , ORAL Take by mouth. 0 Active Problems Active Problems Problem Classification Problem Date Documented Da te Episodic/Chronic Administrative/social admission (1 source) Treatment plan given; Translations: [Counseling, unspecified] Episodic Allergic reactions (1 source) Allergy status to penicillin; Translations: [ALLERGY STATUS TO PENICILLIN] Onset: 11-13-2023 Episodic Anxiety disorders (20 sources) Anxiety; Translations: [Anxiety disorder, unspecified] Onset: 10-30-2024 08-03-2020 Chronic Attention-deficit, conduct, and disruptive behavior disorders (1 source) Attention-deficit hyperactivity disorder, unspecified type; Translations: [ADHD UNSPECIFIED TYPE] Onset: 11-13-2023 Chronic Attention-deficit, conduct, and disruptive behavior disorders (12 sources) Attention deficit hyperactivity disorder; Translations: [Attention-deficit hyperactivity disorder, unspecified type] 08-03-2020 Chronic Calculus of urinary tract (20 sources) Kidney stone; Translations: [Calculus of kidney] 03-16-2021 Episodic Cardiac and circulatory congenital anomalies (1 source) Congenital malformation of heart, unspecified; Translations: [Congenital malformation of heart, unspecified] Onset: 10-30-2024 Chronic Contraceptive and procreative management (20 sources) Patient encounter status; Translations: [Encounter for fertility testing] Onset: 01-22-2023 Episodic Comment on above: donor egg Deficiency and other anemia (20 sources) Anemia of chronic disease; Translations: [Anemia in other chronic diseases classified elsewhere] Onset: 07-12-2020 07-12-2020 Chronic Digestive congenital anomalies (20 sources) Congenital malformation of intestine, unspecified; 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 has abdominal port in place. has undergone several bowel surgeries since . Female infertility (20 sources) Female infertility; Translations: [Female infertility, unspecified] Chronic Fluid and electrolyte disorders (8 sources) Hypokalemia; Translations: [Hypokalemia] 10-14-2024 Episodic Genitourinary congenital anomalies (20 sources) Congenital duplication of uterus; Translations: [Other doubling of uterus, other specified] Onset: 11-13-2023 10-01-2019 Chronic Comment on above: DOC ONLY Genitourinary symptoms and ill-defined conditions (2 sources) Incomplete emptying of bladder; Translations: [Retention of urine, unspecified] Onset: 10-09-2024 10-09-2024 Episodic Inflammatory diseases of female pelvic organs (16 sources) Hydrosalpinx; 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] 07-30-2018 Chronic Inflammatory diseases of female pelvic organs (20 sources) Female pelvic peritoneal adhesions; Translations: [Female pelvic peritoneal adhesions (postinfective)] Onset: 03-31-2020 05-21-2020 Episodic Menopausal disorders (1 source) Diminished ovarian reserve; 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 Mood disorders (12 sources) Depressive disorder; Translations: [Depression] 08-03-2020 Chronic Mood disorders (1 source) Mood disorders; Translations: [Depression, unspecified] Onset: 10-30-2024 Nervous system congenital anomalies (20 sources) Occult spinal dysraphism sequence; Translations: [Other specified congenital malformations of spinal cord] Onset: 10-30-2024 10-20-2024 Chronic Comment on above: Pt has a history of tethered cord: d/w pt need for an anesthesia consult to assess for regional anesthesia at the time of delivery--determine whether anesthesia would want any recent imaging of her spine to assess feasibility. Other aftercare (1 source) Other computer terminal operator (current) drug therapy; Translations: [OTH CORRECTION CURRENT DRUG THERAPY] Onset: 11-13-2023 Episodic Other and unspecified benign neoplasm (20 sources) Lipoma of back; Translations: [Benign lipomatous neoplasm of skin and subcutaneous tissue of trunk] 07-30-2018 Episodic Other and unspecified benign neoplasm (1 source) Benign lipomatous neoplasm of skin and subcutaneous tissue of trunk; Translations: [Benign lipomatous neoplasm of skin and subcutaneous tissue of trunk] Onset: 10-30-2024 Episodic Other complications of (20 sources) H/O: miscarriage; Translations: [Supervision of with other poor reproductive or obstetric history, unspecified trimester] 10-14-2024 Episodic Comment on above: first IVF attempt fa iled Other complications of (20 sources) High risk ; Translations: [Supervision of high risk , unspecified, unspecified trimester] 10-14-2024 Episodic Comment on above: , WES 05/27/25, Pawan([facility]) PRR , WES , boy Pawan([facility]) DOC ONLY PRR , WES 05/27/25, boy Pawan([facility]) Other complications of (20 sources) Advanced maternal age ; Translations: [Elderly multigravida, unspecified as to episode of care or not applicable] 10-14-2024 Episodic Comment on above: nl preimplantation g enetics Other complications of (20 sources) Hypothyroidism in ; Translations: [Endocrine, nutritional and metabolic diseases complicating , unspecified trimester] 10-14-2024 Episodic Other complications of (20 sources) Congenital abnormality of uterus, affecting ; Translations: [Maternal care for other abnormalities of gravid uterus, unspecified trimester] 10-20-2024 Episodic Comment on above: needs cervical lengt hs. Other complications of (20 sources) Urinary tract infection in ; Translations: [Unspecified infection of urinary tract in , unspecified trimester] 10-27-2024 Episodic Comment on above: abx sent, rpt cultur e at next visit per abx sent, rpt cultur e ordered abx sent-2nd one thi s . will need prophylactic atb Other complications of (20 sources) H/O: blood transfusion; Translations: [Supervision of with other poor reproductive or obstetric history, unspecified trimester] 10-14-2024 Episodic Comment on above: childhood surgery tr ansfusion Other complications of (6 sources) Spotting per vagina in ; Translations: [Spotting complicating , first trimester] 11-18-2024 Episodic Comment on above: TVUS Other complications of (1 source) Spotting complicating , first trimester; Translations: [Spotting complicating , first trimester] Onset: 11-25-2024 Episodic Other complications of (1 source) Unspecified infection of urinary tract in , unspecified trimester; Translations: [Unspecified infection of urinary tract in , unspecified trimester] Onset: 11-12-2024 Episodic Other complications of (1 source) Supervision of high risk , unspecified, unspecified trimester; Translations: [Supervision of high risk , unspecified, unspecified trimester] Onset: 11-05-2024 Episodic Other complications of (1 source) Supervision of with other poor reproductive or obstetric history, unspecified trimester; Translations: [Supervision of with other poor reproductive or obstetric history, unspecified trimester] Onset: 10-30-2024 Episodic Other complications of (1 source) Endocrine, nutritional and metabolic diseases complicating , unspecified trimester; Translations: [Endocrine, nutritional and metabolic diseases complicating , unspecified trimester] Onset: 10-30-2024 Episodic Other complications of (1 source) Maternal care for other abnormalities of gravid uterus, unspecified trimester; Translations: [Maternal care for other abnormalities of gravid uterus, unspecified trimester] Onset: 10-30-2024 Episodic Other congenital anomalies (20 sources) Vertebral abnormalities, anal atresia, cardiac abnormalities, tracheo-esophageal fistula, renal anomalies, limb defects syndrome; Translations: [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 has abdominal port in place. has undergone several bowel surgeries since . 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; Translations: [Fistula of vagina to large intestine] Onset: 10-30-2024 Chronic Other female genital disorders (3 sources) Polyp of corpus uteri; Translations: [POLYP OF CORPUS UTERI] Onset: 10-31-2023 Episodic Other gastrointestinal disorders (20 sources) Neurogenic bowel; Translations: [Neurogenic bowel, not elsewhere classified] Onset: 03-01-2020 05-21-2020 Chronic Other gastrointestinal disorders (20 sources) Incontinence of feces; Translations: [Full incontinence of feces] Onset: 07-12-2020 07-12-2020 Episodic Other gastrointestinal disorders (4 sources) Constipation; Translations: [Other constipation] 04-10-2024 Episodic Other gastrointestinal disorders (1 source) Incomplete passage of stool; Translations: [Incomplete defecation] 10-09-2024 Episodic Other gastrointestinal disorders (1 source) Other constipation; Translations: [Other constipation] Onset: 10-09-2024 Episodic Other and delivery including normal (20 sources) ; Translations: [Encounter for supervision of normal , unspecified, unspecified trimester] 10-14-2024 Episodic Comment on above: Pt has had extensive genetic testing, donor egg, baby boy Residual codes; unclassified (3 sources) History of antegrade continence enema procedure; Translations: [Other specified postprocedural states] 04-10-2024 Episodic Residual codes; unclassified (1 source) Other specified postprocedural states; Translations: [Other specified postprocedural states] Onset: 10-09-2024 Episodic Residual codes; unclassified (1 source) 10 weeks gestation of ; Translations: [10 weeks gestation of ] Onset: 10-30-2024 Episodic Thyroid disorders (2 sources) Hypothyroidism, unspecified; Translations: [HYPOTHYROIDISM UNSPECIFIED] Onset: 11-13-2023 Chronic Unclassified (1 source) Anorectal Malformation Onset: 10-09-2024 Urinary tract infections (20 sources) Urinary tract infectious disease; Translations: [Urinary tract infection, site not specified] 08-03-2020 Episodic Past or Other Problems Problem Classification Problem Date Documented Da te Episodic/Chronic Abdominal pain (20 sources) Generalized abdominal pain; Translations: [Generalized abdominal pain] Onset: 05-24-2020 05-24-2020 Episodic Nausea and vomiting (20 sources) Postoperative nausea and vomiting; Translations: [Nausea with vomiting, unspecified] Onset: 05-17-2020 05-17-2020 Episodic Other gastrointestinal disorders (1 source) Incomplete defecation; Translations: [Incomplete defecation] Onset: 08-03-2020 Episodic Unclassified (1 source) History of antegrade continence enema procedure 10-09-2024 Results Test Name Value Interpretation Reference Range Facility Lithopone Charger Office Visit Reporton 11-26-2024 Lith[facility] Office Visit Report [facility] [address] [place] [address], [address] [place] [address] OFFICE VISIT Date of Service: 11/26/24 MR#: [id number] Acct: [id number] Name: LATONYA RODARTE Rep #: [id number] : 1985 Provider: Dr. Iman Silverman DO Age/Sex: 39/F Location: [facility] [place] Status: Signed Intake Vital Signs 01/26/21 17:03 11/18/24 14:11 11/26/24 14:39 11/26/24 14:39 Height 5 ft 4 in 5 ft 4 in 5 ft 4 in 5 ft 4 in Weight: 172 lb BMI 29.5 BP 109/73 Intake Visit Reasons: 14wk OB * DOC ONLY Sign Language Interpreter Required: No Is patient in pain?: No Allergies ampicillin Allergy (Verified 11/26/24 14:38) Hives Medications ???Medication ???Instructions ???Recorded ???Confirmed ???Type Lactobacillus 25 billion cap PO 10/14/24 11/26/24 History cell-Bifido 25 billion [id number]-VHV-zdcfp capsule aspirin 81 mg tablet,delayed 81 mg PO QDAY 10/14/24 11/26/24 Hi story release choline 250 mg tablet 250 mg PO QDAY 10/14/24 11/26/24 H istory glycerin (laxative) 5.4 gram/5.4 See Rx Instructions .Route DAILY 0 10/14/24 11/26/24 History mL rectal solution through stoma with 9ml liquid castile soap multivitamin no.47-iron fum 27 cap PO 10/14/24 11/26/24 History mg-folate no.1 1 mg-dha 300 mg capsule (PNV-DHA) soap ea topical 10/14/24 11/26/24 Histo ry levothyroxine 62.5 mcg capsule 62.5 mcg PO QDAY #30 caps 11/03/24 11/26/24 Rx fosfomycin tromethamine 3 gram 3 g PO ONCE #1 ea 11/22/24 5 Rx oral packet sulfamethoxazole 800 1 tab PO QDAY #30 tabs 11/24/24 Rx mg-trimethoprim 160 mg tablet (Bactrim DS) Last Menstrual Period: 08/21/24 Zika: Zika virus screening: Negative : No PFSH PFSH Medical History History of ESBL E. 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 Surgical History Previous back surgery History of rectal surgery H/O cervical polypectomy History of tubal ligation Family History Grandfather Cancer, Onset Age: 55 Paternal lung cancer then mets to throat cancer- smoking Father Diabetes Uncle Multiple sclerosis paternal Mother Lymphedema Grandfather Lymphedema Maternal Social History adopted: No household members: spouse housing: house current occupational status: unemployed current occupational exposures/hazards: No pets and animals: Yes pets and animals: dog(s) history of recent travel: Yes (- June) out of state: Yes out of country: Yes sexually active: Yes Smoking Status: Never smoker alcohol intake: current alcohol intake frequency: a few times a month details: not while substance use type: does not use well-balanced diet: daily or most days caffeine: No eating out: 1-3 times/week during the past year weight has: remained stable what type of physical activity do you participate in: walking and other details: pilates frequency: 3-4 times per week duration: 15-30 minutes/day sotero/pentecostal: None seatbelt use: always do you feel safe at home: Yes 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: 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 Date Name GA/Weeks Outcome Route Bth Weight Infant Gen Labor Lgth Anesthesia Del Locatn Provider FOB Unknown February 25, 2024 4 spontaneous Delivery Date: Last Updated by: Ginny Mcintyre failed IVF transfer HPI 14wk OB * DOC ONLY Details: LATONYA RODARTE is a 39 year old who presents for routine OB visit. OB Visit WES Calculator Estimated Delivery Date Method Current WG Current Estimate 12/10/25 Conception 14w 0d Expected Delivery Route/Plan requests primary section Specific Issue/Plans Covid status: [] Flu vaccine: [] Tdap vaccine: [] Rhogam: [] LARC form signed: [] Problem list reviewed and updated with the most current plan of care details and appropriate orders placed. Relevant counseling for the gestational age provided. Continue routine care and follow up unless otherwise noted in visit notes/problem list details Initial Weight: Not Recorded Date -???-???-???-???-???-?? ?-???-???-???-???-???-? ??- EGA Weight BP Urine Prot -???-???-???-???-???-?? ?-???-???-???-???-???-? ??- Glucose FHR FuHt Pres Dilation -??? (more content not included)... Normal [facility] Urine Cultureon 11-22-2024 [facility] RESULTS CALLED TO VIVIANA Tellez 11/21/24 0911 Nolvia Leon. REPORT READ BACK BY . Urine Culture Copy of report sent to Infection Control Printer [id number] 11/21/24 0911 SANTA. ESBL Escherichia coli [place] Count 80,000-100,000 MARKER ESBL producing OrganismA MARKER ESBL producing OrganismA [place] Count 50,000-80,000 Enterococcus faecalis Ampicillin Islt MARIAMA >=32 Ampicillin+Sulbac Islt MARIAMA 8 S Cefepime Islt MARIAMA 16 cefTRIAXone Islt MARIAMA 32 R Ciprofloxacin Islt MARIAMA >=4 R B-Lactamase Extended Susc Islt POS Gentamicin Islt MARIAMA <=1 S levoFLOXacin Islt MARIAMA >=8 R Meropenem Islt MARIAMA <=0.25 S Nitrofurantoin Islt MARIAMA 64 I Pip+Tazo Islt MARIAMA <=4 S TMP SMX Islt MARIAMA <=20 S ESBL Escherichia coli: REACTION Amikacin Islt MARIAMA 2 S Eravacycline Islt MARIAMA <=0.12 S Imipenem Islt MARIAMA <=0.25 Tobramycin Islt MARIAMA <=1 S Enterococcus faecalis: REACTION Ampicillin Islt MARIAMA <=2 S Ciprofloxacin Islt MARIAMA 1 S Gentamicin Synergy Susc Islt SYN-S levoFLOXacin Islt MARIAMA 2 S Linezolid Islt MARIAMA 2 S Nitrofurantoin Islt MARIAMA <=16 S Streptomycin High Pot Susc Islt SYN-S S Tetracycline Islt MARIAMA <=1 S Vancomycin Islt MARIAMA 2 S Normal [facility] Comment on above: Performed By: #### M [id number] ####[facility] [id number] [place], [address] Progress Noteon 11-21-2024 Certified [employer] Engineer Authentication Interface Message Text [facility] Antepartum Consult Note I had the pleasure of seeing your patient, Ms. Rodarte, in consultation in regards to her Didelphic uterus and previous rectovaginal fistula in IVF with donor egg. As you know, she is a 39 y.o. at 13w1d by LMP and Ultrasound confirmation. Today she states she is doing well without complaint. Obstetrical History OB History Para Term AB Living 2 1 SAB IAB Ectopic Multiple Live Births 1 # Outcome Date GA Lbr Davey/2nd Weight Sex Type Anes PTL Lv 2 Current 1 SAB 02/25/24 4w0d SAB Comments: chemical Nuchal Translucency/first trimester ultrasound was normal. Carrier screening was negative. 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 duplication of vagina Infertility, female IVF-donor egg Malrotation of kidney Tethered spinal cord repaired Thyroid disease Hypothyroidism, 62.5mg was found by RE in 2021 during fertility process UTI (urinary tract infection) Past Surgical History: Procedure Laterality Date BACK SURGERY RECTAL SURGERY multiple REIMPLANT URETER IN BLADDER TUBAL LIGATION left tube removed-can't see ovary Allergies[1] Current Medications[2] Social History Socioeconomic History Marital status: Spouse name: Not on file Number of children: Not on file Years of education: Not on file Highest education level: Not on file Occupational History Not on file Tobacco Use Smoking status: Never Smokeless tobacco: Never Substance and Sexual Activity Alcohol use: Not Currently Drug use: Never Sexual activity: Not on file Other Topics Concern Not on file Social History Narrative Not on file Social Drivers of Health Food Insecurity: No Food Insecurity (04/10/2024) Received from [facility] Hunger Vital Sign Worried About Running Out of Food in the Last Year: Never true Ran Out of Food in the Last Year: Never true Transportation Needs: No Transportation Needs (04/10/2024) Received from [facility] PRAPARE - Transportation Lack of Transportation (Medical): No Lack of Transportation (Non-Medical): No Housing Stability: Low Risk (04/10/2024) Received from [facility] Housing Stability Vital Sign Unable to Pay for Housing in the Last Year: No Number of Places Lived in the Last Year: 1 Unstable Housing in the Last Year: No Family History Problem Relation Age of Onset Diabetes Mellitus II Father Lung Cancer Paternal Grandfather Mult Sclerosis Paternal Uncle Review of Systems - negative unless otherwise specified above Vitals: 11/21/24 1036 BP: 104/52 Pulse: 76 Resp: 18 SpO2: 99% Weight: 77 kg (169 lb 11.2 oz) BMI Readings from Last 1 Encounters: 11/21/24 29.13 kg/m Physical Examination: General appearance - alert, well appearing, and in no distress Mental status - alert, oriented to person, place, and time Chest - No difficulty with breathing Heart - Normal Rate Abdomen - Non tender during US exam Pelvic - Deferred Extremities - no edema noted Ultrasound performed today in the office: please see report for further detail. 1. [place] intrauterine with cardiac activity present at 13w 2d with an WES of 05/27/2025. 2. [place] rump length measurement is consistent with established gestational age. 3. First trimester nuchal translucency appeared normal for this gestational age, 1.4 mm. 4. Empty left uterine horn. My Impression and recommendations include the following: Latonya Rodarte is a 39 y.o. 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 Patient had her septum removed. Risk in include increased rate of miscarriage, growth restriction, malpresentation, increased risk of labor and rupture membranes, as well as delivery. Patient had a rectovaginal fistula repaired. Therefore it is recommended to have scheduled , Due to increased risk of damage to prior repair with the patient's undergo vaginal delivery. Patient states that her primary surgeon at outside hospital requested early delivery due to this. We discussed outcomes at different gestational ages including typical gestational age requiring NICU admission. 34, 35, 37, 38, and 39 weeks. We discussed an early term delivery would be reasonable if her primary surgeon was concerned and needed to be present at time of her delivery. If this is the case then she should deliver at the outside hospital with her primary surgical (more content not included)... Normal [facility] - Chemistry and C hemistry - challengeOrdered By: Jesse Horvath on 11-18-2024 Bilirubin Ql (U) Negative [facility] Glucose Ql (U) Negative [facility] Ketones Ql (U) Negative [facility] pH (U) 5 [pH] [facility] Specific gravity (U) [Rel density] 1.015 [facility] Urobilinogen (U) [Mass/Vol] Negative [facility] Laboratory - Hematology and Cell countsOrdered By: Jesse Horvath on 11-18-2024 Hemoglobin Ql (U) Negative [facility] Laboratory - Specimen inform ationOrdered By: Jesse Horvath on 11-18-2024 Clarity (U) Clear [facility] Color (U) YELLOW [facility] Laboratory - UrinalysisOrder ed By: Jesse Horvath on 11-18-2024 Nitrite Ql (U) Negative [facility] Protein Ql (U) Negative [facility] No Panel InformationOrdered By: Jesse Horvath on 11-18-2024 Urine Leukocytes Negatve [facility] Urine Non-Hemolyzed Blood [facility] Lithopone Charger Office Visit Reporton 11-18-2024 Lithopone Charger Office Visit Report [facility] [address], [address] [place] [address] OFFICE VISIT Date of Service: 11/18/24 MR#: [id number] Acct: [id number] Name: LATONYA RODARTE Rep #: [id number] : 1985 Provider: FERNANDO monet Age/Sex: 39/F Location: [facility] Status: Signed Intake Vital Signs 11/13/24 08:10 11/18/24 14:11 Height 5 ft 4 in 5 ft 4 in Weight: 171 lb BMI 29.3 BP 126/75 H Intake Visit Reasons: UTI check Chief Complaint: UTI Check Sign Language Interpreter Required: No Is patient in pain?: No Allergies ampicillin Allergy (Verified 11/18/24 14:11) Hives Medications ???Medication ???Instructions ???Recorded ???Confirmed ???Type Lactobacillus 25 billion cap PO 10/14/24 11/18/24 History cell-Bifido 25 billion gvwm-WSD-ckyky capsule aspirin 81 mg tablet,delayed 81 mg PO QDAY 10/14/24 11/18/24 Hi story release choline 250 mg tablet 250 mg PO QDAY 10/14/24 11/18/24 H istory glycerin (laxative) 5.4 gram/5.4 See Rx Instructions .Route DAILY 0 10/14/24 11/18/24 History mL rectal solution through stoma with 9ml liquid castile soap multivitamin no.47-iron fum 27 cap PO 10/14/24 11/18/24 History mg-folate no.1 1 mg-dha 300 mg capsule (PNV-DHA) soap ea topical 10/14/24 11/18/24 Histo ry levothyroxine 62.5 mcg capsule 62.5 mcg PO QDAY #30 caps 11/03/24 11/18/24 Rx Last Menstrual Period: 08/21/24 : No PFSH PFSH Medical History History of ESBL E. 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 Surgical History Previous back surgery History of rectal surgery H/O cervical polypectomy History of tubal ligation Family History Grandfather Cancer, Onset Age: 55 Paternal lung cancer then mets to throat cancer- smoking Father Diabetes Uncle Multiple sclerosis paternal Mother Lymphedema Grandfather Lymphedema Maternal Social History adopted: No household members: spouse housing: house current occupational status: unemployed current occupational exposures/hazards: No pets and animals: Yes pets and animals: dog(s) history of recent travel: Yes (- June) out of state: Yes out of country: Yes sexually active: Yes Smoking Status: Never smoker alcohol intake: current alcohol intake frequency: a few times a month details: not while substance use type: does not use well-balanced diet: daily or most days caffeine: No eating out: 1-3 times/week during the past year weight has: remained stable what type of physical activity do you participate in: walking and other details: pilates frequency: 3-4 times per week duration: 15-30 minutes/day sotero/pentecostal: None seatbelt use: always do you feel safe at home: Yes 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: 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 Date Name GA/Weeks Outcome Route Bth Weight Gen Labor Lgth Anesthesia Del Locatn Provider FOB Unknown February 25, 2024 4 spontaneous Delivery Date: Last Updated by: Ginny Mcintyre failed IVF transfer HPI UTI check Details: LATONYA RODARTE is a 39 year old who presents for routine OB visit. OB Visit WES Calculator Estimated Delivery Date Method Current WG Current Estimate 05/27/25 Conception 12w 6d Expected Delivery Route/Plan requests primary section Specific Issue/Plans Covid status: [] Flu vaccine: [] Tdap vaccine: [] Rhogam: [] LARC form signed: [] Problem list reviewed and updated with the most current plan of care details and appropriate orders placed. Relevant counseling for the gestational age provided. Continue routine care and follow up unless otherwise noted in visit notes/problem list details Initial Weight: Not Recorded Date -???-???-???-???-???-?? ?-???-???-???-???-???-? ??- EGA Weight BP Urine Prot -???-???-???-???-???-?? ?-???-???-???-???-???-? ??- Glucose FHR FuHt Pres Dilation -???-???-???-???-???-?? ?-???-???-???-???-???-? ??- Effaced St Visit Note 10/24/24 -???-???-???-???-???-?? ?-???-???-???-???-???-? ??- 9w 2d 166 lb 4 oz 111/65 -???-???-???-???-???-?? ?-???-???-???-???-???-? ??- 185 -???-???-???-???-???-?? ?-???-???-???-???-???-? ??- JV- crl siobhan uring 9 weeks 2 days and consi (more content not included)... Normal [facility] Transvaginal w/Preg USon Transvaginal w/Preg US [facility] [address] [place] [id number] Transvaginal w/Preg US MR#: [id number] Acct: [id number] Name: LATONYA RODARTE Rep #: [id number] : 1985 F 39 From: Glenda White PCP: Dr. Imani Helm, DO Status: REG CLI Study: Transvaginal w/Preg US Date of Exam: 11/18/24 Exam# [id number] Ordering Dr: Jesse Horvath DREDGE CAPTAIN DREDGE CAPTAIN -C PROCEDURE: TRANSVAGINAL W/PREG US 11/18/2024 REASON FOR EXAM: SPOTTING IN EARLY TECHNIQUE: High resolution obstetric ultrasound performed using a 2D transducer. Transvaginal ultrasound imaging. Standard views obtained, including biometry, anatomy survey, and Doppler studies. COMPARISON: None FINDINGS Live intrauterine with gestational sac measuring 5.3 cm corresponding with gestational age of 11 weeks and 1 day. Shape of the gestational sac is within normal limits. Yolk sac is not visualized at this time. Embryo CRL measures 6.45 cm corresponding with gestational age of 12 weeks and 5 days. heart rate of 164 beats per minute. Overall estimated gestational age of 12 weeks and 0 days with estimated delivery date of 06/02/2025. Uterus measures 15.8 x 9.4 x 6.7 cm. No fibroids. Cervix is closed. No significant fluid within the cul-de-sac. Bilateral ovaries are not well visualized. US/Transvaginal w/Preg US IMPRESSION: Live intrauterine gestational with sonographic gestational age of 12 weeks and 0 days with estimated delivery date of 06/02/2025. No sonographic evidence of significant abnormalities. Bilateral ovaries are not well seen. Reading Location: [id number] CC: FERNANDO Horvath; Dr. 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 Normal [facility] Urine cultureOrdered By: Lesley Horvath on 11-18-2024 Bacteria identified Cx Nom (U) ESBL Escherichia coli Abnormal [facility] Bacteria identified Cx Nom (U) Enterococcus faecalis Abnormal [facility] Lithopone Charger Office Visit Reporton 11-13-2024 Lithopone Charger Office Visit Report [facility] [address] [place] [address], [address] [place] [address] OFFICE VISIT Date of Service: 11/13/24 MR#: [id number] Acct: [id number] Name: LATONYA RODARTE Rep #: [id number] : 1985 Provider: Dr. Kaila cali MD Age/Sex: 39/F Location: [facility] [place] Status: Signed Intake Vital Signs 10/30/24 09:10 11/06/24 14:14 11/13/24 08:10 Height 5 ft 4 in 5 ft 4 in 5 ft 4 in Weight: 167 lb 2 oz BMI 28.7 BP 109/64 Intake Visit Reasons: 12 wk ob Sign Language Interpreter Required: No Is patient in pain?: No Allergies ampicillin Allergy (Verified 11/13/24 08:12) Hives Medications ???Medication ???Instructions ???Recorded ???Confirmed ???Type Lactobacillus 25 billion cap PO 10/14/24 11/13/24 History cell-Bifido 25 billion nylz-OJH-xqjjl capsule aspirin 81 mg tablet,delayed 81 mg PO QDAY 10/14/24 11/13/24 Hi story release choline 250 mg tablet 250 mg PO QDAY 10/14/24 11/13/24 H istory glycerin (laxative) 5.4 gram/5.4 See Rx Instructions .Route DAILY 0 10/14/24 11/13/24 History mL rectal solution through stoma with 9ml liquid castile soap multivitamin no.47-iron fum 27 cap PO 10/14/24 11/13/24 History mg-folate no.1 1 mg-dha 300 mg capsule (PNV-DHA) soap ea topical 10/14/24 11/13/24 Histo ry levothyroxine 62.5 mcg capsule 62.5 mcg PO QDAY #30 caps 11/03/24 11/13/24 Rx Last Menstrual Period: 08/21/24 Zika: Zika virus screening: Negative : No PFSH PFSH Medical History History of ESBL E. 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 Surgical History Previous back surgery History of rectal surgery H/O cervical polypectomy History of tubal ligation Family History Grandfather Cancer, Onset Age: 55 Paternal lung cancer then mets to throat cancer- smoking Father Diabetes Uncle Multiple sclerosis paternal Mother Lymphedema Grandfather Lymphedema Maternal Social History adopted: No household members: spouse housing: house current occupational status: unemployed current occupational exposures/hazards: No pets and animals: Yes pets and animals: dog(s) history of recent travel: Yes (- June) out of state: Yes out of country: Yes sexually active: Yes Smoking Status: Never smoker alcohol intake: current alcohol intake frequency: a few times a month details: not while substance use type: does not use well-balanced diet: daily or most days caffeine: No eating out: 1-3 times/week during the past year weight has: remained stable what type of physical activity do you participate in: walking and other details: pilates frequency: 3-4 times per week duration: 15-30 minutes/day sotero/pentecostal: None seatbelt use: always do you feel safe at home: Yes 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: 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 Date Name GA/Weeks Outcome Route Bth Weight Infant Gen Labor Lgth Anesthesia Del Locatn Provider FOB Unknown February 25, 2024 4 spontaneous Delivery Date: Last Updated by: Ginny Mcintyre failed IVF transfer HPI 12 wk ob Details: LATONYA RODARTE is a 39 year old who presents for routine OB visit. OB Visit WES Calculator Estimated Delivery Date Method Current WG Current Estimate 05/27/25 Conception 12w 1d Expected Delivery Route/Plan requests primary section Specific Issue/Plans Covid status: [] Flu vaccine: [] Tdap vaccine: [] Rhogam: [] LARC form signed: [] Problem list reviewed and updated with the most current plan of care details and appropriate orders placed. Relevant counseling for the gestational age provided. Continue routine care and follow up unless otherwise noted in visit notes/problem list details Initial Weight: Not Recorded Date -???-???-???-???-???-?? ?-???-???-???-???-???-? ??- EGA Weight BP Urine Prot -???-???-???-???-???-?? ?-???-???-???-???-???-? ??- Glucose FHR FuHt Pres Dilation -???-???-???-???-???-?? ?-???-???-???-???-???-? ??- Effaced St Visit Note 10/24/24 -???-???-???-???-???-?? ?-???-???-???-???-???-? ??- 9w 2d 166 lb 4 oz 111/65 -???-???-???-???-???-?? ?-???-???-???-???-???-? ??- 185 -???-???-???-???-???-?? ?-???-???-???-??? (more content not included)... Normal [facility] Urine Cultureon 11-07-2024 [facility] Culture exhibits no growth. Normal [facility] Comment on above: Performed By: #### M 100.2200 #### [facility] [address] [place], [address] Lithopone Charger Office Visit Reporton 11-06-2024 Lithopone Charger Office Visit Report [facility] [address], [address] [place] [address] OFFICE VISIT Date of Service: 11/06/24 MR#: [id number] Acct: [id number] Name: LATONYA RODARTE Rep #: [id number] : 1985 Provider: Dr. Kaila cali MD Age/Sex: 39/F Location: [facility] [place] Status: Signed Intake Vital Signs 10/30/24 09:10 11/06/24 14:08 11/06/24 14:14 Height 5 ft 4 in 5 ft 4 in 5 ft 4 in Weight: 172 lb 2 oz BMI 29.5 BP 102/70 Intake Visit Reasons: Repeat Urine Culture Chief Complaint: Urine Culture Sign Language Interpreter Required: No Is patient in pain?: No Allergies ampicillin Allergy (Verified 11/06/24 14:04) Hives Medications ???Medication ???Instructions ???Recorded ???Confirmed ???Type Lactobacillus 25 billion cap PO 10/14/24 11/06/24 History cell-Bifido 25 billion zqlc-FCI-ailxr capsule aspirin 81 mg tablet,delayed 81 mg PO QDAY 10/14/24 11/06/24 Hi story release choline 250 mg tablet 250 mg PO QDAY 10/14/24 11/06/24 H istory estradiol 2 mg tablet 2 mg PO QDAY 10/14/24 11/06/24 His tory glycerin (laxative) 5.4 gram/5.4 See Rx Instructions .Route DAILY 0 10/14/24 11/06/24 History mL rectal solution through stoma with 9ml liquid castile soap multivitamin no.47-iron fum 27 cap PO 10/14/24 11/06/24 History mg-folate no.1 1 mg-dha 300 mg capsule (PNV-DHA) progesterone 50 mg/mL 100 mg IM QDAY 10/14/24 11/06/24 H istory intramuscular oil soap ea topical 10/14/24 11/06/24 Histo ry levothyroxine 62.5 mcg capsule 62.5 mcg PO QDAY #30 caps 11/03/24 11/06/24 Rx Last Menstrual Period: 08/21/24 : No PFSH PFSH Medical History History of ESBL E. 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 Surgical History Previous back surgery History of rectal surgery H/O cervical polypectomy History of tubal ligation Family History Grandfather Cancer, Onset Age: 55 Paternal lung cancer then mets to throat cancer- smoking Father Diabetes Uncle Multiple sclerosis paternal Mother Lymphedema Grandfather Lymphedema Maternal Social History adopted: No household members: spouse housing: house current occupational status: unemployed current occupational exposures/hazards: No pets and animals: Yes pets and animals: dog(s) history of recent travel: Yes (- June) out of state: Yes out of country: Yes sexually active: Yes Smoking Status: Never smoker alcohol intake: current alcohol intake frequency: a few times a month details: not while substance use type: does not use well-balanced diet: daily or most days caffeine: No eating out: 1-3 times/week during the past year weight has: remained stable what type of physical activity do you participate in: walking and other details: pilates frequency: 3-4 times per week duration: 15-30 minutes/day sotero/pentecostal: None seatbelt use: always do you feel safe at home: Yes 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: 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 Date Name GA/Weeks Outcome Route Bth Weight Gen Labor Lgth Anesthesia Del Locatn Provider FOB Unknown February 25, 2024 4 spontaneous Delivery Date: Last Updated by: Ginny Mcintyre failed IVF transfer HPI Repeat Urine Culture Details: LATONYA RODARTE is a 39 year old who presents for routine OB visit. OB Visit WES Calculator Estimated Delivery Date Method Current WG Current Estimate 05/27/25 Conception 11w 2d Expected Delivery Route/Plan requests primary section Specific Issue/Plans Covid status: [] Flu vaccine: [] Tdap vaccine: [] Rhogam: [] LARC form signed: [] Problem list reviewed and updated with the most current plan of care details and appropriate orders placed. Relevant counseling for the gestational age provided. Continue routine care and follow up unless otherwise noted in visit notes/problem list details Initial Weight: Not Recorded Date -???-???-???-???-???-?? ?-???-???-???-???-???-? ??- EGA Weight BP Urine Prot -???-???-???-???-???-?? ?-???-???-???-???-???-? ??- Glucose FHR FuHt Pres Dilation -???-???-???-???-???-?? ?-???-???-???-???-???-? ??- Effaced St Visit Note 10/24/24 -???-???-?? (more content not included)... Normal [facility] Urine cultureOrdered By: Bk Henderson on 11-06-2024 Bacteria identified Cx Nom (U) Culture exhibits no growth. [facility] Absolute lymphocyte countOrd ered By: Kaila Henderson on 10-30-2024 Lymphocytes Auto (Unsp spec) [#/Vol] 2.06 10*3/uL 0.83-4.51 [facility] Absolute neutrophil countOrd ered By: Kaila Henderson on 10-30-2024 Neutrophils (Bld) [#/Vol] 5.6 10*3/uL 2.0-7.7 [facility] Automated lymphocyte count a s percentage of total leukocytesOrdered By: Kaila Henderson on 10-30-2024 Lymphocytes/100 WBC Auto (Unsp spec) 24.3 % 19-41 [facility] Basophil percentageOrdered B y: Kaila Henderson on 10-30-2024 Basophils/100 WBC (Bld) 0.6 % 0-1 [facility] CBC W/Diff, Automatedon 10-16 Absolute Lymph 2.06 X10 3/uL Normal 0.83-4.51 [facility] Comment on above: Performed By: #### L 3890.6301, L100.0100, BTS, L3890.6102, L509.8002, L3890.6006, L506.0400, L501.9520, L509.4006 #### [facility] [address] [place], [address] Absolute Neut 5.6 X10 3/uL Normal 2.0-7.7 [facility] Comment on above: Performed By: #### L 3890.6301, L100.0100, BTS, L3890.6102, L509.8002, L3890.6006, L506.0400, L501.9520, L509.4006 #### [facility] [address] [place], [address] Basophils/100 WBC (Bld) 0.6 % Normal 0-1 [facility] Comment on above: Performed By: #### L 3890.6301, L100.0100, BTS, L3890.6102, L509.8002, L3890.6006, L506.0400, L501.9520, L509.4006 #### [facility] [address] [place], [address] Eosinophils/100 WBC (Bld) 0.9 % Normal 0-5 [facility] Comment on above: Performed By: #### L 3890.6301, L100.0100, BTS, L3890.6102, L509.8002, L3890.6006, L506.0400, L501.9520, L509.4006 #### [facility] [address] [place], [address] Erythrocyte distribution width (RBC) [Ratio] 12.9 % Normal 11.6-14.6 [facility] Comment on above: Performed By: #### L 3890.6301, L100.0100, BTS, L3890.6102, L509.8002, L3890.6006, L506.0400, L501.9520, L509.4006 #### [facility] [address] [place], [address] Hematocrit (Bld) [Volume fraction] 41.8 % Normal 37-47 [facility] Comment on above: Performed By: #### L 3890.6301, L100.0100, BTS, L3890.6102, L509.8002, L3890.6006, L506.0400, L501.9520, L509.4006 #### [facility] [address] [place], [address] Hemoglobin (Bld) [Mass/Vol] 13.7 g/dL Normal 12.0-15.0 [facility] Comment on above: Performed By: #### L 3890.6301, L100.0100, BTS, L3890.6102, L509.8002, L3890.6006, L506.0400, L501.9520, L509.4006 #### [facility] [address] [place], [address] IG% 0.200 Normal 0.0-0.9 [facility] Comment on above: Result Comment: IG% - Immature Granulocytes (promyelocytes, myelocytes and metamyelocytes) > 1% indicates that a LEFT SHIFT is Present. Performed By: #### L 3890.6301, L100.0100, BTS, L3890.6102, L509.8002, L3890.6006, L506.0400, L501.9520, L509.4006 #### [facility] [address] [place], [address] Lymphocytes/100 WBC (Bld) 24.3 % Normal 19-41 [facility] Comment on above: Performed By: #### L 3890.6301, L100.0100, BTS, L3890.6102, L509.8002, L3890.6006, L506.0400, L501.9520, L509.4006 #### [facility] [address] [facility] [place], [address] MCH (RBC) [Entitic mass] 30.3 pg Normal 27.0-32.0 [facility] Comment on above: Performed By: #### L 3890.6301, L100.0100, BTS, L3890.6102, L509.8002, L3890.6006, L506.0400, L501.9520, L509.4006 #### [facility] [address] [place], [address] MCHC (RBC) [Mass/Vol] 32.8 g/dL Normal 32-36 [facility] Comment on above: Performed By: #### L 3890.6301, L100.0100, BTS, L3890.6102, L509.8002, L3890.6006, L506.0400, L501.9520, L509.4006 #### [facility] [address] [place], [address] MCV (RBC) [Entitic vol] 92.5 fL Normal 81-99 [facility] Comment on above: Performed By: #### L 3890.6301, L100.0100, BTS, L3890.6102, L509.8002, L3890.6006, L506.0400, L501.9520, L509.4006 #### [facility] [address] [place], [address] Monocytes/100 WBC (Bld) 7.9 % Normal 0-10 [facility] Comment on above: Performed By: #### L 3890.6301, L100.0100, BTS, L3890.6102, L509.8002, L3890.6006, L506.0400, L501.9520, L509.4006 #### [facility] [address] [place], [address] Neutrophils/100 WBC (Bld) 66.1 % Normal 47-70 [facility] Comment on above: Performed By: #### L 3890.6301, L100.0100, BTS, L3890.6102, L509.8002, L3890.6006, L506.0400, L501.9520, L509.4006 #### [facility] [address] [place], [address] Nucleated RBC (Bld) [#/Vol] 0 10*3/uL Normal 0-5 [facility] Comment on above: Performed By: #### L 3890.6301, L100.0100, BTS, L3890.6102, L509.8002, L3890.6006, L506.0400, L501.9520, L509.4006 #### [facility] [address] [place], [address] Platelet mean volume (Bld) [Entitic vol] 10.5 fL Normal 6.2-12.0 [facility] Comment on above: Performed By: #### L 3890.6301, L100.0100, BTS, L3890.6102, L509.8002, L3890.6006, L506.0400, L501.9520, L509.4006 #### [facility] [address] [place], [address] Platelets (Bld) [#/Vol] 320 10*3/uL Normal 150-450 [facility] Comment on above: Performed By: #### L 3890.6301, L100.0100, BTS, L3890.6102, L509.8002, L3890.6006, L506.0400, L501.9520, L509.4006 #### [facility] [address] [place], [address] RBC (Bld) [#/Vol] 4.52 10*6/uL Normal 4.2-5.4 [facility] Comment on above: Performed By: #### L 3890.6301, L100.0100, BTS, L3890.6102, L509.8002, L3890.6006, L506.0400, L501.9520, L509.4006 #### [facility] [address] [place], [address] RDW SD 43.1 fl Normal 35.1-43.9 [facility] Comment on above: Performed By: #### L 3890.6301, L100.0100, BTS, L3890.6102, L509.8002, L3890.6006, L506.0400, L501.9520, L509.4006 #### [facility] [address] [place], [address] WBC (Bld) [#/Vol] 8.5 10*3/uL Normal 4.4-11.0 [facility] Comment on above: Performed By: #### L 3890.6301, L100.0100, BTS, L3890.6102, L509.8002, L3890.6006, L506.0400, L501.9520, L509.4006 #### [facility] [address] [place], [place], [id number] Eosinophil percentageOrdered By: Kaila Henderson on 10-30-2024 Eosinophils/100 WBC (Bld) 0.9 % 0-5 [facility] Erythrocyte distribution wid th ratioOrdered By: Kaila Henderson on 10-30-2024 Erythrocyte distribution width (RBC) [Ratio] 12.9 % 11.6-14.6 [facility] Erythrocyte distribution wid th standard deviationOrdered By: Kaila Henderson on 10-30-2024 Erythrocyte distribution width (RBC) [Ratio] 43.1 fl 35.1-43.9 [facility] HIVon 10-30-2024 HIV Non-Reactive Normal Nonreactive [facility] Comment on above: Result Comment: Non- Reactive Reactive Repeatedly reactive samples must be confirmed according to CDC recommended confirmatory algorithms. The subresults for either HIVAG or AHIV can be used as an aid in the selection of the confirmation algorithm for reactive samples. Send out specimens with Reactive results to [facility] for confirmation. Order the HIV antibody detection and differentiation: #[id number] Performed By: #### L 3890.6301, L100.0100, BTS, L3890.6102, L509.8002, L3890.6006, L506.0400, L501.9520, L509.4006 ####[facility] [id number] [place], [place], [address] Hematocrit Auto (Bld) [Volum e fraction]Ordered By: Kaila Henderson on 10-30-2024 Hematocrit (Bld) [Volume fraction] 41.8 % 37-47 [facility] Hemoglobin measurementOrdere d By: Kaila Henderson on 10-30-2024 Hemoglobin (Bld) [Mass/Vol] 13.7 g/dL 12.0-15.0 [facility] Hepatitis C Antibodyon 10-30 Hepatitis C Ab Non-Reactive Normal Nonreactive [facility] Comment on above: Result Comment: Reac tive: Presumptive evidence of antibodies to HCV. Follow CDC recommendations for supplemental testing. Non-Reactive: Antibodies to HCV were not detected; does not exclude the possibility of exposure to HCV Reactive Results are presumptive evidence of antibodies to HCV. Follow CDC recommendations for supplemental testing. Order confirmation testing: HCV Quant by PCR testing - HCVPCR #[id number] Non Reactive: < 0.8 Equivocal: >/= 0.8 to < 1.0 Reactive: >/= 1.0 The [facility] requires that a reactive/equivocal HCV antibody result be sent out for confirmation. HCV Quant by PCR testing. Performed By: #### L 3890.6301, L100.0100, BTS, L3890.6102, L509.8002, L3890.6006, L506.0400, L501.9520, L509.4006 ####[facility] [id number] [place], [address] Immature granulocytes/100 WB C Auto (Bld)Ordered By: Kaila Henderson on 10-30-2024 Immature granulocytes/100 WBC (Bld) 0.200 % 0.0-0.9 [facility] Comment on above: IG% - Immature Granu locytes (promyelocytes, myelocytes and metamyelocytes) > 1% indicates that a LEFT SHIFT is Present. L3890.6102on 10-30-2024 HEP B Surf Ag Non-Reactive Normal Nonreactive [facility] Comment on above: Result Comment: Reac tive: Presumptive evidence of HBV. Repeatedly reactive samples must be confirmed using a neutralization test ([employer] HBsAg Confirmatory Test) Non-Reactive: HBsAg not detected; does not exclude the possibility of exposure to HBV Performed By: #### L 3890.6301, L100.0100, BTS, L3890.6102, L509.8002, L3890.6006, L506.0400, L501.9520, L509.4006 ####[facility] [id number] [place], [address] L509.4006on 10-30-2024 Rubella IgG REAC Normal Nonreactive [facility] Comment on above: Result Comment: Anti body Result: Interpretation Non-Reactive: Non-Immune Reactive: Immune The following results were obtained with the [employer] Rubella IgG assay. Results from assays of other manufacturers cannot be used interchangeably. Performed By: #### L 3890.6301, L100.0100, BTS, L3890.6102, L509.8002, L3890.6006, L506.0400, L501.9520, L509.4006 ####[facility] [id number] [place], [address] Laboratory - Chemistry and C hemistry - challengeOrdered By: Kaila Henderson on 10-30-2024 Glucose Ql (U) Negative [facility] Laboratory - Microbiology an d Antimicrobial susceptibilityOrdered By: Kaila Henderson on 10-30-2024 HBV surface Ag Ql (S) Non-Reactive Nonreactive [facility] Comment on above: Reactive: Presumptiv e evidence of HBV. Repeatedly reactive samples must be confirmed using a neutralization test ([employer] HBsAg Confirmatory Test)Non-Reactive: HBsAg not detected; does not exclude the possibility of exposure to HBV Laboratory - UrinalysisOrder ed By: Kaila Henderson on 10-30-2024 Protein Ql (U) Negative [facility] MCV (mean corpuscular volume ) determinationOrdered By: Kaila Henderson on 10-30-2024 MCV (RBC) [Entitic vol] 92.5 fL 81-99 [facility] Mean corpuscular hemoglobin (MCH) determinationOrdered By: Kaila Henderson on 10-30-2024 MCH (RBC) [Entitic mass] 30.3 pg 27.0-32.0 [facility] Mean corpuscular hemoglobin concentration (MCHC) determinationOrdered By: Kaila Henderson on 10-30-2024 MCHC (RBC) [Mass/Vol] 32.8 g/dL 32-36 [facility] Mean platelet volume determi nationOrdered By: Kaila Hsuivanna on 10-30-2024 Platelet mean volume (Bld) [Entitic vol] 10.5 fL 6.2-12.0 [facility] Monocyte percentageOrdered B y: Kaila Henderson on 10-30-2024 Monocytes/100 WBC (Bld) 7.9 % 0-10 [facility] Neutrophil percentageOrdered By: Kaila Henderson on 10-30-2024 Neutrophils/100 WBC (Bld) 66.1 % 47-70 [facility] No Panel InformationOrdered By: Kialakandis Henderson on 10-30-2024 HIV (1&2) Antibody Non-Reactive Nonreactive [facility] Comment on above: Non-ReactiveReactive Repeatedly reactive samples must be confirmed according to CDC recommended confirmatory algorithms. The subresults for either HIVAG or AHIV can be used as an aid in the selection of the confirmation algorithm for reactive samples.Send out specimens with Reactive results to [facility] for confirmation.Order the HIV antibody detection and differentiation: #[id number] Nucleated red blood cell per centageOrdered By: Kailakandis Henderson on 10-30-2024 Nucleated RBC/100 WBC (Bld) [Ratio] 0 % 0-5 [facility] Lithopone Charger Office Visit Reporton 10-30-2024 Lithopone Charger Office Visit Report [facility] [address], [address] [place] [address] OFFICE VISIT Date of Service: 10/30/24 MR#: [id number] Acct: [id number] Name: LATONYA RODARTE Rep #: [id number] : 1985 Provider: Dr. Kaila cali MD Age/Sex: 39/F Location: [facility] [place] Status: Signed Intake Vital Signs 10/24/24 11:42 10/30/24 09:05 10/30/24 09:10 Height 5 ft 4 in 5 ft 4 in 5 ft 4 in Weight: 165 lb 4 oz BMI 28.3 BP 116/70 Intake Visit Reasons: 10W 1D [employer] CK per JV Sign Language Interpreter Required: No Is patient in pain?: No Allergies ampicillin Allergy (Verified 10/30/24 09:05) Hives Medications ???Medication ???Instructions ???Recorded ???Confirmed ???Type Lactobacillus 25 billion cap PO 10/14/24 10/30/24 History cell-Bifido 25 billion dxrv-OIN-ghlgf capsule aspirin 81 mg tablet,delayed 81 mg PO QDAY 10/14/24 10/30/24 Hi story release choline 250 mg tablet 250 mg PO QDAY 10/14/24 10/30/24 H istory estradiol 2 mg tablet 2 mg PO QDAY 10/14/24 10/30/24 His tory glycerin (laxative) 5.4 gram/5.4 See Rx Instructions .Route DAILY 0 10/14/24 10/30/24 History mL rectal solution through stoma with 9ml liquid castile soap levothyroxine 75 mcg capsule 75 mcg PO QDAY 10/14/24 10/30/24 H istory multivitamin no.47-iron fum 27 cap PO 10/14/24 10/30/24 History mg-folate no.1 1 mg-dha 300 mg capsule (PNV-DHA) progesterone 50 mg/mL 100 mg IM QDAY 10/14/24 10/30/24 H istory intramuscular oil soap ea topical 10/14/24 10/30/24 Histo ry nitrofurantoin 100 mg PO BID 7 days #14 caps 10/1610/30/24 Rx monohydrate/macrocrysta ls 100 mg capsule (Macrobid) Last Menstrual Period: 08/21/24 Zika: Zika virus screening: Negative : No PFSH PFSH Medical History (Updated 10/30/24 @ 09:[address] Kaila Henderson MD) History of ESBL E. 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 Surgical History Previous back surgery History of rectal surgery H/O cervical polypectomy History of tubal ligation Family History Grandfather Cancer, Onset Age: 55 Paternal lung cancer then mets to throat cancer- smoking Father Diabetes Uncle Multiple sclerosis paternal Mother Lymphedema Grandfather Lymphedema Maternal Social History adopted: No household members: spouse housing: house current occupational status: unemployed current occupational exposures/hazards: No pets and animals: Yes pets and animals: dog(s) history of recent travel: Yes (- June) out of state: Yes out of country: Yes sexually active: Yes Smoking Status: Never smoker alcohol intake: current alcohol intake frequency: a few times a month details: not while substance use type: does not use well-balanced diet: daily or most days caffeine: No eating out: 1-3 times/week during the past year weight has: remained stable what type of physical activity do you participate in: walking and other details: pilates frequency: 3-4 times per week duration: 15-30 minutes/day sotero/pentecostal: None seatbelt use: always do you feel safe at home: Yes 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: 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 Date Name GA/Weeks Outcome Route Bth Weight Infant Gen Labor Lgth Anesthesia Del Locatn Provider FOB Unknown February 25, 2024 4 spontaneous Delivery Date: Last Updated by: Ginny Mcintyre failed IVF transfer HPI 10W 1D [facility] CK per JV Details: LATONYA RODARTE is a 39 year old who presents for routine OB visit. OB Visit WES Calculator Estimated Delivery Date Method Current WG Current Estimate 05/27/25 Conception 10w 1d Expected Delivery Route/Plan requests primary section Specific Issue/Plans Covid status: [] Flu vaccine: [] Tdap vaccine: [] Rhogam: [] LARC form signed: [] Problem list reviewed and updated with the most current plan of care details and appropriate orders placed. Relevant counseling for the gestational age provided. Continue routine care and follow up unless otherwise noted in visit notes/problem list details Initial Weight: Not Recorded Date -???-???-???-???-???-?? ?-???-???-???-???-???-? ??- EGA Weight BP Urine Prot -???-???-???-???-???-?? ? (more content not included)... Normal [facility] Platelet countOrdered By: Mari Henderson on 10-30-2024 Platelets (Bld) [#/Vol] 320 10*3/uL 150-450 [facility] RBC Auto (Bld) [#/Vol]Ordere d By: Kaila Henderson on 10-30-2024 RBC (Bld) [#/Vol] 4.52 10*6/uL 4.2-5.4 [facility] Syphilis Antibodieson 2024 Syphilis Abs Non-Reactive Normal Nonreactive [facility] Comment on above: Performed By: #### L 3890.6301, L100.0100, BTS, L3890.6102, L509.8002, L3890.6006, L506.0400, L501.9520, L509.4006 ####[facility] [address] [place], [place], [id number] T4 Free Directon 10-30-2024 T4 FREE DIRECT 1.50 ng/dL High 0.76-1.46 [facility] Comment on above: Performed By: #### L 3890.6301, L100.0100, BTS, L3890.6102, L509.8002, L3890.6006, L506.0400, L501.9520, L509.4006 ####[facility] [address] [place], [place], [id number] T4 freeOrdered By: Kaila pickens on 10-30-2024 Free T4 [Mass/Vol] 1.50 ng/dL High 0.76-1.46 [facility] TSH DL <= 0.005 mIU/L QnOrde red By: Kaila Henderson on 10-30-2024 TSH Qn 1.320 uIU/mL 0.300-4.200 [facility] Thyroid Stim Hormone (TSH)on 10-30-2024 TSH 1.320 uIU/mL Normal 0.300-4.200 [facility] Comment on above: Performed By: #### L 3890.6301, L100.0100, BTS, L3890.6102, L509.8002, L3890.6006, L506.0400, L501.9520, L509.4006 #### [facility] [address] [place], [address] Type AND Screenon 10-30-2024 Ab SCREEN GEL Negative Normal [facility] Comment on above: Order Comment: PN Performed By: #### L 3890.6301, L100.0100, BTS, L3890.6102, L509.8002, L3890.6006, L506.0400, L501.9520, L509.4006 ####[facility] [address] [place], [address] White blood cell (WBC) count Ordered By: Kaila Henderson on 10-30-2024 WBC (Bld) [#/Vol] 8.5 10*3/uL 4.4-11.0 [facility] Chlamydia/GC MONICA aptimaon CHLAMY,NUC ACID Negative Normal Negative [facility] Comment on above: Performed By: #### L 7000.1800, M100.2200 ####[facility] [id number] [place], [address] GC BY NUC ACID Negative Normal Negative [facility] Comment on above: Result Comment: Perf ormed at: =G - [facility] [address] [id number] Practice Business Asst: Alona Tanner MD, Phone: [phone] Performed By: #### L 7000.1800, M100.2200 ####[facility] [address] [place], [address] Urine Cultureon 10-27-2024 UR Copy of report sent to Infection Control Printer [id number] 10/26/24 Luis WHITTINGTON. Urine Culture [facility] Lisa Leon. REPORT READ BACK BY . Urine Culture Urine Culture ESBL Escherichia coli [place] Count >100,000 MARKER ESBL producing OrganismA MARKER ESBL producing OrganismA Amikacin Islt MARIAMA 4 S Ampicillin Islt MARIAMA >=32 Ampicillin+Sulbac Islt MARIAMA 8 S Cefepime Islt MARIAMA 16 R Eravacycline Islt MARIAMA <=0.12 S cefTRIAXone Islt MARIAMA 32 R Ciprofloxacin Islt MARIAMA >=4 R B-Lactamase Extended Susc Islt POS Gentamicin Islt MARIAMA <=1 S Imipenem Islt MARIAMA <=0.25 S levoFLOXacin Islt MARIAMA >=8 R Meropenem Islt MARIAMA <=0.25 S Nitrofurantoin Islt MARIAMA <=16 S Pip+Tazo Islt MARIAMA 64 R Tobramycin Islt MARIAMA <=1 S TMP SMX Islt MARIAMA <=20 S Normal [facility] Comment on above: Performed By: #### L 7000.1800, M100.2200 ####[facility] [address] [place], [address] Chlamydia trachomatis rRNA d etection by probe and target amplification methodOrdered By: Kaila Henderson on 10-24-2024 C. trachomatis rRNA MONICA+probe Ql (Unsp spec) Negative Negative [facility] Neisseria gonorrhoeae nuclei c acid detection by amplified probe techniqueOrdered By: Kaila Henderson on 10-24-2024 N. gonorrhoeae DNA MONICA+probe Ql (Unsp spec) Negative Negative [facility] Comment on above: Performed at: =[address] [id number] Director: Alona Tanner MD, Phone: [phone] [facility]opone [facility]ger Office Visit Reporton 10-24-2024 Lithopone Charger Office Visit Report [facility] [address], [address] [place] [address] OFFICE VISIT Date of Service: 10/24/24 MR#: [id number] Acct: [id number] Name: LATONYA RODARTE Rep #: [id number] : 1985 Provider: Dr. Iman Silverman DO Age/Sex: 39/F Location: [facility] Status: Signed Intake Vital Signs 01/26/21 17:03 10/14/24 10:25 10/24/24 11:39 10/24/24 11:42 Height 5 ft 4 in 5 ft 4 in 5 ft 4 in 5 ft 4 in Weight: 166 lb 4 oz BMI 28.5 BP 111/65 Intake Visit Reasons: NOB IVF transfer 09/09 Sign Language Interpreter Required: No Is patient in pain?: No Allergies ampicillin Allergy (Verified 10/24/24 11:39) Hives Medications ???Medication ???Instructions ???Recorded ???Confirmed ???Type Lactobacillus 25 billion cap PO 10/14/24 10/24/24 History cell-Bifido 25 billion qsoo-BCK-jwhry capsule aspirin 81 mg tablet,delayed 81 mg PO QDAY 10/14/24 10/24/24 Hi story release choline 250 mg tablet 250 mg PO QDAY 10/14/24 10/24/24 H istory estradiol 2 mg tablet 2 mg PO QDAY 10/14/24 10/24/24 His tory glycerin (laxative) 5.4 gram/5.4 See Rx Instructions .Route DAILY 0 10/14/24 10/24/24 History mL rectal solution through stoma with 9ml liquid castile soap levothyroxine 75 mcg capsule 75 mcg PO QDAY 10/14/24 10/24/24 H istory multivitamin no.47-iron fum 27 cap PO 10/14/24 10/24/24 History mg-folate no.1 1 mg-dha 300 mg capsule (PNV-DHA) progesterone 50 mg/mL 100 mg IM QDAY 10/14/24 10/24/24 H istory intramuscular oil soap ea topical 10/14/24 10/24/24 Histo ry Last Menstrual Period: 08/21/24 Zika: [facility]: [facility] Medical History 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 Hydrosalpinx Tethered cord 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 Surgical History Previous back surgery History of rectal surgery H/O cervical polypectomy History of tubal ligation Family History Grandfather Cancer, Onset Age: 55 Paternal lung cancer then mets to throat cancer- smoking Father Diabetes Uncle Multiple sclerosis paternal Mother Lymphedema Grandfather Lymphedema Maternal Social History adopted: No household members: spouse housing: house current occupational status: unemployed current occupational exposures/hazards: No pets and animals: Yes pets and animals: dog(s) history of recent travel: Yes (- June) out of state: Yes out of country: Yes sexually active: Yes Smoking Status: Never smoker alcohol intake: current alcohol intake frequency: a few times a month details: not while substance use type: does not use well-balanced diet: daily or most days caffeine: No eating out: 1-3 times/week during the past year weight has: remained stable what type of physical activity do you participate in: walking and other details: pilates frequency: 3-4 times per week duration: 15-30 minutes/day sotero/pentecostal: None seatbelt use: always do you feel safe at home: Yes 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: 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 Date Name GA/Weeks Outcome Route Bth Weight Gen Labor Lgth Anesthesia Del Locatn Provider FOB Unknown February 25, 2024 4 spontaneous Delivery Date: Last Updated by: Ginny Mcintyre failed IVF transfer HPI NOB IVF transfer 09/09 Details: LATONYA RODARTE is a 39 year old who presents for New OB visit. 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 She is status post tubal ligation for hydrosalpinx. Her VERENICE and VACTERL surgeons are at [facility]. she prefers to go there if possible if transferring care. She has already done genetic testing on the embryo and it's a boy!. Due to her multiple medical procedures for VACTERL, she will require a primary section. She has undergone ureteral re- implantation procedures and she has a midline MACE (appendicotomy) aka Henson Antegrade Continence Enema. OB Visit WES Calculator Estimated Delivery Date Method Current WG Current Estimate 05/27/25 Conception 9w 2d Estimated Due Date: 05/27/25 Expected Delivery Route/Plan requests primary section Specific Issue/Plans Covid status: [] Flu vaccine: [] Tdap vaccine: [] Rhogam: [] LARC form signed: [] Problem list review (more content not included)... Normal [facility] Urine cultureOrdered By: Bk Henderson on 10-24-2024 Bacteria identified Cx Nom (U) ESBL Escherichia coli Abnormal [facility] Laboratory - Chemistry and C hemistry - challengeOrdered By: Kaila Henderson on 10-14-2024 HCG ( test) Ql (U) Positive [facility] Office Visit Reporton 2024 Office Visit Report [facility] [address] [place] [address] OFFICE VISIT Date of Service: 10/14/24 MR#: [id number] Acct: [id number] Patient: LATONYA RODARTE Rep #: [id number] : 1985 Provider: Dr. Kaila cali MD Age/Sex: 39/F Location: [facility] Status: Signed Intake Vital Signs 01/26/21 17:03 10/14/24 10:25 Height 5 ft 4 in 5 ft 4 in Weight: 163 lb 8 oz BMI 28.0 BP 106/71 Blood Pressure Location Lt brachial Position Sitting Intake Visit Reasons: Confirmation for / Vitals Chief Complaint: fever, chills, nausea, abd pain Sign Language Interpreter Required: No Is patient in pain?: No Allergies ampicillin Allergy (Verified 10/14/24 10:26) Hives Medications ???Medication ???Instructions ???Recorded ???Confirmed ???Type Lactobacillus 25 billion cap PO 10/14/24 10/14/24 History cell-Bifido 25 billion jmxz-QOV-mvtef capsule aspirin 81 mg tablet,delayed 81 mg PO QDAY 10/14/24 10/14/24 Hi story release choline 250 mg tablet 250 mg PO QDAY 10/14/24 10/14/24 H istory estradiol 2 mg tablet 2 mg PO QDAY 10/14/24 10/14/24 His tory glycerin (laxative) 5.4 gram/5.4 See Rx Instructions .Route DAILY 0 10/14/24 10/14/24 History mL rectal solution through stoma with 9ml liquid castile soap levothyroxine 75 mcg capsule 75 mcg PO QDAY 10/14/24 10/14/24 H istory multivitamin no.47-iron fum 27 cap PO 10/14/24 10/14/24 History mg-folate no.1 1 mg-dha 300 mg capsule (PNV-DHA) progesterone 50 mg/mL 100 mg IM QDAY 10/14/24 10/14/24 H istory intramuscular oil soap ea topical 10/14/24 History Is last menstrual period known: Yes Last menstrual period: 08/21/24 Post menopausal: No Patient : Yes Nurse's Note: Pt here for PNOB. Office UPT: positive. Vitals WNL. PNOB questions completed. Problem list, allergies, and medications updated. Results POC Urine Office , Urine Positive Last Edit by Ginny Mcintyre on 10/14/24 10:30 Assessment and Plan Assessment and Plan (1) Advanced maternal age (AMA) in : Status: Acute (2) : Status: Acute Comment: Pt has had extensive genetic testing, donor egg, baby boy (3) Supervision of high-risk : Status: Acute Comment: , WES 05/27/25, Pawan([facility]) (4) History of miscarriage, currently : Status: Acute Comment: first IVF attempt failed (5) Hx of maternal blood transfusion, currently : Status: Acute Comment: childhood surgery transfusion (6) Hypothyroidism affecting : Status: Acute (7) Anxiety and depression: Status: Acute (8) In vitro fertilization: Status: Acute Comment: donor egg (9) Didelphic uterus in : Status: Acute Orders: Orders POC Urine 10/14/24 N91.2 - Amenorrhea, unspecified CBC W/Diff, Automated 10/14/24 O09.90 - Supervision of high risk , unspecified, unspecified trimester Type Screen 10/14/24 O09.90 - Supervision of high risk , unspecified, unspecified trimester Rubella IgG 10/14/24 O09.90 - Supervision of high risk , unspecified, unspecified trimester Hepatitis C Antibody 10/14/24 O09.90 - Supervision of high risk , unspecified, unspecified trimester Hepatitis B Surface Antigen 10/14/24 O09.90 - Supervision of high risk , unspecified, unspecified trimester Culture, Urine 10/14/24 O09.90 - Supervision of high risk , unspecified, unspecified trimester Syphilis Antibodies 10/14/24 O09.90 - Supervision of high risk , unspecified, unspecified trimester Chlamydia/GC MONICA aptima 10/14/24 O09.90 - Supervision of high risk , unspecified, unspecified trimester HIV 10/14/24 O09.90 - Supervision of high risk , unspecified, unspecified trimester Thyroid Stim Hormone (TSH) 10/14/24 E03.9 - Hypothyroidism, unspecified, O09.90 - Supervision of high risk , unspecified, unspecified trimester, O99.280 - Endocrine, nutritional and metabolic diseases complicating , unspecified trimester T4 Free Direct 10/14/24 E03.9 - Hypothyroidism, unspecified, O09.90 - Supervision of high risk , unspecified, unspecified trimester, O99.280 - Endocrine, nutritional and metabolic diseases complicating , unspecified trimester [facility] Misc. 10/14/24 E03.9 - Hypothyroidism, unspecified, O09.90 - Supervision of high risk , unspecified, unspecified trimester, O99.280 - Endocrine, nutritional and metabolic diseases complicating , unspecified trimester 10/15/24 1651 Date Kaila Henderson MD Cosign Signature: Date (if applicable) CC: [facility] IR CECOSTOMY EXCHANGE WITH F May 10-09-2024 IR CECOSTOMY EXCHANGE WITH FLUORO IR tube change request Current tube: Mini ALEX Current tube size: 14 fr 6.5 cm Plan for IR tube change (what tube/size): same as above Please use fluoro to measure tract of henson to ensure appropriate size of tube is ordered. For all OUTPATIENT orders please call [phone] in addition to placing order. The on-call interventional radiologist must be contacted regarding scheduling of ALL EMERGENT and AFTER-HOURS and WEEKEND procedure requests. RADIOLOGIST WILL REVIEW AND PROTOCOL THE PROCEDURE NEEDED. History: Constipation. 7 weeks . Procedure note: A timeout was performed per protocol. The patient's cecostomy tube was exchanged over a wire. The balloon was inflated and the line flushed. IMPRESSION: Impression: Cecostomy tube exchange. The indwelling tube is a 14 Mongolian, 6 cm mini Alex button. Interpreted by: Doorteo Rodney MD Signed by: Doroteo Rodney MD on 10/09/2024 12:12 PM Normal [facility] RF Guidance for placement of tube in Gastrointestinal tracton 10-09-2024 Impression: Cecostomy tube exchange. The indwelling tube is a 14 Mongolian, 6 cm mini Alex button. [facility] Doroteo Rodney MD - 10/09/2024 History: Constipation. 7 weeks . Procedure note: A timeout was performed per protocol. The patient's cecostomy tube was exchanged over a wire. The balloon was inflated and the line flushed. IMPRESSION Impression: Cecostomy tube exchange. The indwelling tube is a 14 Mongolian, 6 cm mini Alex button. [facility] Radiology Study observation (narrative) [facility] RF Guidance for placement of tube in Gastrointestinal tractOrdered By: Doroteo Rodney on 10-09-2024 [facility] Work Phone: US Kidneyon 10-09-2024 1. 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 2. Normal left kidney 3. No hydroureteronephrosis 4. Post void bladder residual volume. [facility] Kiki Singh MD - 10/09/2024 PROCEDURE: US KIDNEY REASON FOR EXAM: Hx: anorectal malformation. Please assess kidneys and bladder. Obtain post-void images if patient of potty training age. If there is hydronephrosis present, please grade on UTD and SFU scales. ;Anorectal malformation COMPARISON: 08 September 2020 FINDINGS: LEFT renal length: 12.5 cm previously 12.2 Left renal volume 114.3 mL RIGHT renal length: 10.6 cm previously 10.2 Right renal volume 104.1 mL Bladder: The bladder is well distended. The bladder is normal. No distal ureteral dilatation is observed. Bladder emptying:Post void residual of approximately 234 ml LEFT KIDNEY: Normal renal parenchyma. No calcification. No hydronephrosis. RIGHT KIDNEY: Multifocal cortical thinning in the upper and lower poles.No calcification. No hydronephrosis. No abnormal pelvic free fluid. IMPRESSION 1. 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 2. Normal left kidney 3. No hydroureteronephrosis 4. Post void bladder residual volume. [facility] Radiology Study observation (narrative) [facility] US KidneyOrdered By: Kiki miranda on 10-09-2024 [facility] Work Phone: IR CECOSTOMY EXCHANGE WITH F LUOROon 04-10-2024 IR CECOSTOMY EXCHANGE WITH FLUORO IR tube change request Current tube:mini ALEX Current tube size: 14 FR 6.5 cm Plan for IR tube change (what tube/size): Measure the tract using contrast is visualize the entire tract For all OUTPATIENT orders please call [phone] in addition to placing order. The on-call interventional radiologist must be contacted regarding scheduling of ALL EMERGENT and AFTER-HOURS and WEEKEND procedure requests. RADIOLOGIST WILL REVIEW AND PROTOCOL THE PROCEDURE NEEDED. STUDY: IR CECOSTOMY EXCHANGE WITH FLUORO 04/10/2024 2:27 PM REASON FOR EXAM: History of anorectal malformation ;Anorectal malformation PROCEDURE: Cecostomy tube exchange. PREOPERATIVE DIAGNOSIS: Constipation. POSTOPERATIVE DIAGNOSIS: Same ANESTHESIA: None. LOCAL ANESTHESIA: 2ml of lidocaine jelly. PROCESSING SUPERVISOR: Anant Jo MD ASSISTANTS: None. SPECIMENS: None. ESTIMATED BLOOD LOSS: None. COMPLICATIONS: None. COMPARISON IMAGING: Contrast enema exam 09/08/20. TECHNIQUE: A timeout was performed per protocol. Under fluoroscopic guidance, the patient's cecostomy tube was removed over a Glidewire. Stoma tract length measuring device was advanced into position. Stomal length was measured at 6 cm. The stoma tract length measuring device and guidewire were removed. A Russell catheter tube with balloon inflated was utilized to occlude the external portion of the tract and contrast was injected. A fluoroscopic spot film was obtained with an external radiographic ruler in place. Using this method, the tract length was measured at 6.5 cm. A new 12-Mongolian, 6 cm in length mini Alex button tube was advanced into position. The retention balloon was inflated to 4 mL contrast/water mix. Final position is satisfactory and was confirmed by injecting contrast through the tube and obtaining a spot film. IMPRESSION: 1.Cecostomy tract length measured at 6.0 cm using a stoma length measuring device. Cecostomy tract length measured at 6.5 cm using contrast injection method. 2.Cecostomy tube exchange. The indwelling tube is a 12-Mongolian, 6 cm stomal length mini Alex button. Interpreted by: Anant Jo MD Signed by: Anant Jo MD on 04/10/2024 2:41 PM Normal [facility] RF Guidance for placement of tube in Gastrointestinal tracton 04-10-2024 1.Cecostomy tract length measured at 6.0 cm using a stoma length measuring device. Cecostomy tract length measured at 6.5 cm using contrast injection method. 2.Cecostomy tube exchange. The indwelling tube is a 12-Mongolian, 6 cm stomal length mini Alex button. [facility] STUDY: IR CECOSTOMY EXCHANGE WITH FLUORO 04/10/2024 2:27 PM REASON FOR EXAM: History of anorectal malformation ;Anorectal malformation PROCEDURE: Cecostomy tube exchange. PREOPERATIVE DIAGNOSIS: Constipation. POSTOPERATIVE DIAGNOSIS: Same ANESTHESIA: None. LOCAL ANESTHESIA: 2ml of lidocaine jelly. PROCESSING SUPERVISOR: Anant Jo MD ASSISTANTS: None. SPECIMENS: None. ESTIMATED BLOOD LOSS: None. COMPLICATIONS: None. COMPARISON IMAGING: Contrast enema exam 09/08/20. TECHNIQUE: A timeout was performed per protocol. Under fluoroscopic guidance, the patient's cecostomy tube was removed over a Glidewire. Stoma tract length measuring device was advanced into position. Stomal length was measured at 6 cm. The stoma tract length measuring device and guidewire were removed. A Russell catheter tube with balloon inflated was utilized to occlude the external portion of the tract and contrast was injected. A fluoroscopic spot film was obtained with an external radiographic ruler in place. Using this method, the tract length was measured at 6.5 cm. A new 12-Mongolian, 6 cm in length mini Alex button tube was advanced into position. The retention balloon was inflated to 4 mL contrast/water mix. Final position is satisfactory and was confirmed by injecting contrast through the tube and obtaining a spot film. [facility] Anant Jo MD - 04/10/2024 STUDY: IR CECOSTOMY EXCHANGE WITH FLUORO 04/10/2024 2:27 PM REASON FOR EXAM: History of anorectal malformation ;Anorectal malformation PROCEDURE: Cecostomy tube exchange. PREOPERATIVE DIAGNOSIS: Constipation. POSTOPERATIVE DIAGNOSIS: Same ANESTHESIA: None. LOCAL ANESTHESIA: 2ml of lidocaine jelly. PROCESSING SUPERVISOR: Anant Jo MD ASSISTANTS: None. SPECIMENS: None. ESTIMATED BLOOD LOSS: None. COMPLICATIONS: None. COMPARISON IMAGING: Contrast enema exam 09/08/20. TECHNIQUE: A timeout was performed per protocol. Under fluoroscopic guidance, the patient's cecostomy tube was removed over a Glidewire. Stoma tract length measuring device was advanced into position. Stomal length was measured at 6 cm. The stoma tract length measuring device and guidewire were removed. A Russell catheter tube with balloon inflated was utilized to occlude the external portion of the tract and contrast was injected. A fluoroscopic spot film was obtained with an external radiographic ruler in place. Using this method, the tract length was measured at 6.5 cm. A new 12-Mongolian, 6 cm in length mini Alex button tube was advanced into position. The retention balloon was inflated to 4 mL contrast/water mix. Final position is satisfactory and was confirmed by injecting contrast through the tube and obtaining a spot film. IMPRESSION 1.Cecostomy tract length measured at 6.0 cm using a stoma length measuring device. Cecostomy tract length measured at 6.5 cm using contrast injection method. 2.Cecostomy tube exchange. The indwelling tube is a 12-Mongolian, 6 cm stomal length mini Alex button. [facility] Radiology Study observation (narrative) [facility] RF Guidance for placement of tube in Gastrointestinal tractOrdered By: Anant Jo on 04-10-2024 [facility] Work Phone: XR ABDOMEN - SUPINEon 2023 XR ABDOMEN - SUPINE REASON FOR EXAM: Ass ess Stool Load, Anorectal Malformation, Follow Up ;Anorectal malformation TECHNIQUE: XR ABDOMEN - SUPINE COMPARISON: 01/19/2022 FINDINGS: TUBES/LINES: None. LUNG BASES: visualized portions are normal. BOWEL GAS PATTERN: Normal distribution of bowel gas. No dilated loops. STOOL VOLUME: *RIGHT hemiabdomen: Stool within otherwise normal bowel. *Upper abdomen: Stool within otherwise normal bowel. *LEFT hemiabdomen: Stool within otherwise normal bowel. *Lower abdomen and lower pelvis: Stool within otherwise normal bowel. SOFT TISSUES: Normal. CALCIFICATIONS: None. BONES: Normal. IMPRESSION: Above average stool burden, stable since the prior study. Otherwise normal abdominal radiograph. Interpreted by: Denise Gregg MD Signed by: Denise Gregg MD on 04/10/2024 3:55 PM Normal [facility] XR Abdomen Supine and Uprigh ton 04-10-2024 Above average stool burden, stable since the prior study. Otherwise normal abdominal radiograph. [facility] REASON FOR EXAM: Ass ess Stool Load, Anorectal Malformation, Follow Up ;Anorectal malformation TECHNIQUE: XR ABDOMEN - SUPINE COMPARISON: 01/19/2022 FINDINGS: TUBES/LINES: None. LUNG BASES: visualized portions are normal. BOWEL GAS PATTERN: Normal distribution of bowel gas. No dilated loops. STOOL VOLUME: *RIGHT hemiabdomen: Stool within otherwise normal bowel. *Upper abdomen: Stool within otherwise normal bowel. *LEFT hemiabdomen: Stool within otherwise normal bowel. *Lower abdomen and lower pelvis: Stool within otherwise normal bowel. SOFT TISSUES: Normal. CALCIFICATIONS: None. BONES: Normal. [facility] Denise Gregg MD - 04/10/2024 REASON FOR EXAM: Assess Stool Load, Anorectal Malformation, Follow Up ;Anorectal malformation TECHNIQUE: XR ABDOMEN - SUPINE COMPARISON: 01/19/2022 FINDINGS: TUBES/LINES: None. LUNG BASES: visualized portions are normal. BOWEL GAS PATTERN: Normal distribution of bowel gas. No dilated loops. STOOL VOLUME: *RIGHT hemiabdomen: Stool within otherwise normal bowel. *Upper abdomen: Stool within otherwise normal bowel. *LEFT hemiabdomen: Stool within otherwise normal bowel. *Lower abdomen and lower pelvis: Stool within otherwise normal bowel. SOFT TISSUES: Normal. CALCIFICATIONS: None. BONES: Normal. IMPRESSION Above average stool burden, stable since the prior study. Otherwise normal abdominal radiograph. [facility] Radiology Study observation (narrative) [facility] XR Abdomen Supine and Uprigh tOrdered By: Denise Gregg on 04-10-2024 [facility] Work Phone: Surgical pathology studyon 0 10-31-2023 Surgical pathology study Pathology report.total SEE COMMENT Surgical Pathology Case: [id number] Authorizing Provider: Von Adler MD Collected: 10/31/2023 1438 Ordering Location: [facility] Received: 11/01/2023 1535 Center Pathologist: Zev Kim MD Specimen: ENDOMETRIUM POLYPECTOMY, Uterine Polyps Path report.final diagnosis SEE COMMENT A. UTERINE POLYPS, CURETTAGE: -- INACTIVE ENDOMETRIUM WITH STROMAL PSEUDODECIDUALIZATION, CONSISTENT WITH PROGESTIN EFFECT. Laboratory comment By the signature on this report, the individual or group listed as making the Final Interpretation/Diagnosi s certifies that they have reviewed this case. Path report.relevant Hx Uterine Polyps Path report.gross observation SEE COMMENT A: Received in formalin in a gauze sock, labeled with the patient's name, hospital number and uterine polyps, are multiple irregular fragments of hathaway, rubbery tissue aggregating to 2.6 x 0.8 x 0.4 cm. The specimen is entirely submitted in one cassette. [facility] Basic Metabolic Panelon 10-16 CKD-EPI Estimated Glomerular Filtration Rate (eGFR) is calculated using the 2020 CKD-EPI creatinine equation. This equation uses serum creatinine, sex and age for calculating the eGFR. [facility] Comment on above: Performed By: #### B MP #### [facility] [address] [place] [address] 14391 Anion gap [Moles/Vol] 10 mmol/L Normal 8-15 [facility] Comment on above: Performed By: #### B MP #### [facility] [address] [place] [address] 14598 Calcium [Mass/Vol] 9.1 mg/dL Normal 8.6-10.6 [facility] Comment on above: Performed By: #### B MP #### [facility] [address] [place] [address] 03724 Chloride [Moles/Vol] 106 mmol/L Normal 98-107 [facility] Comment on above: Performed By: #### B MP #### [facility] [address] [place] [address] 59853 CO2 [Moles/Vol] 24 mmol/L Normal 22-29 [facility] Comment on above: Performed By: #### B MP #### [facility] [address] [place] [address] 21769 Creatinine [Mass/Vol] 0.9 mg/dL Normal 0.5-1.2 [facility] Comment on above: Performed By: #### B MP #### [facility] [address] [place] [address] 24798 eGFR 81 mL/min/1.73sqm Normal >=60 [facility] Comment on above: Performed By: #### B MP #### [facility] [address] [place] [address] 66848 Glucose [Mass/Vol] 80 mg/dL Normal 74-109 [facility] Comment on above: Performed By: #### B MP #### [facility] [address] [place] [address] 65607 Potassium [Moles/Vol] 3.7 mmol/L Normal 3.4-5.1 [facility] Comment on above: Performed By: #### B MP #### [facility] [address] [place] [address] 46876 Sodium [Moles/Vol] 140 mmol/L Normal 136-145 [facility] Comment on above: Performed By: #### B MP #### [facility] [address] [place] [address] 54758 Urea nitrogen [Mass/Vol] 19 mg/dL Normal 6-23 [facility] Comment on above: Performed By: #### B MP #### [facility] [address] [place] [address] 05743 CBC with Diffon 10-30-2023 BA# 0.1 x(10)3/cumm Normal 0.0-0.1 [facility] Comment on above: Performed By: #### C BCDIFF #### [facility] [address] [place] [address] 62632 Basophils/100 WBC (Bld) 1.0 % Normal 0.0-1.0 [facility] Comment on above: Performed By: #### C BCDIFF #### [facility] [address] [place] [address] 42853 EO# 0.1 x(10)3/cumm Normal 0.0-0.4 [facility] Comment on above: Performed By: #### C BCDIFF #### [facility] [address] [place] [address] 27416 Eosinophils/100 WBC (Bld) 1.7 % Normal 0.0-6.1 [facility] Comment on above: Performed By: #### C BCDIFF #### [facility] [address] [place] [address] 57340 Erythrocyte distribution width (RBC) [Ratio] 13.7 % Normal 11.1-15.3 [facility] Comment on above: Performed By: #### C BCDIFF #### [facility] [address] [place] [address] 26178 Hematocrit (Bld) [Volume fraction] 39.4 % Normal 34.6-45.0 [facility] Comment on above: Performed By: #### C BCDIFF #### [facility] [address] [place] [address] 74069 Hemoglobin (Bld) [Mass/Vol] 13.0 g/dL Normal 11.5-15.5 [facility] Comment on above: Performed By: #### C BCDIFF #### [facility] [address] [place] [address] 75033 LY# 2.3 x(10)3/cumm Normal 0.8-2.9 [facility] Comment on above: Performed By: #### C BCDIFF #### [facility] [address] [place] [address] 81739 Lymphocytes/100 WBC (Bld) 32.9 % Normal 12.2-42.6 [facility] Comment on above: Performed By: #### C BCDIFF #### [facility] [address] [place] [address] 73204 MCH (RBC) [Entitic mass] 30.4 pg Normal 27.2-33.6 [facility] Comment on above: Performed By: #### C BCDIFF #### [facility] [address] [place] [address] 30096 MCHC (RBC) [Mass/Vol] 33.0 g/dL Normal 32.9-35.3 [facility] Comment on above: Performed By: #### C BCDIFF #### [facility] [address] [place] [address] 80716 MCV (RBC) [Entitic vol] 92.0 fL Normal 81.3-96.7 [facility] Comment on above: Performed By: #### C BCDIFF #### [facility] [address] [place] [address] 60187 MO# 0.5 x(10)3/cumm Normal 0.2-0.8 [facility] Comment on above: Performed By: #### C BCDIFF #### [facility] [address] [place] [address] 52894 Monocytes/100 WBC (Bld) 7.9 % Normal 3.3-11.6 [facility] Comment on above: Performed By: #### C BCDIFF #### [facility] [address] [place] [address] 05556 NE# 3.9 x(10)3/cumm Normal 1.3-7.4 [facility] Comment on above: Performed By: #### C BCDIFF #### [facility] [address] [place] [address] 22586 Neutrophils/100 WBC (Bld) 56.5 % Normal 44.9-78.8 [facility] Comment on above: Performed By: #### C BCDIFF #### [facility] [address] [place] [address] 25327 Platelet mean volume (Bld) [Entitic vol] 8.9 fL Normal 6.4-10.0 [facility] Comment on above: Performed By: #### C BCDIFF #### [facility] [address] [place] [address] PLT 269 x(10)3/cumm Normal 138-367 [facility] Comment on above: Performed By: #### C BCDIFF #### [facility] [address] [place] [address] Plt Morph Normal [facility] Comment on above: Performed By: #### C BCDIFF #### [facility] [address] [place] [address] RBC 4.28 X(10)6/cumm Normal 3.90-5.10 [facility] Comment on above: Performed By: #### C BCDIFF #### [facility] [address] [place] [address] RBC Morph cont Normal [facility] Comment on above: Performed By: #### C BCDIFF #### [place] [address] RBC morphology finding Nom (Bld) Normal [facility] Comment on above: Performed By: #### C BCDIFF #### [facility] [address] [place] [address] WBC 6.9 x(10)3/cumm Normal 3.6-10.3 [facility] Comment on above: Performed By: #### C BCDIFF #### [facility] [address] [place] [address] WBC Morph Normal [facility] Comment on above: Performed By: #### C BCDIFF #### [place] [address] [place] 02-07-2023 DEREKN Telephone (REIBD) LATONYA RODARTE ([id number]) 1985 F Date Time Provider Department 02/07/23 ROGER MACKENZIECHARLIE COHN During your visit today, we recorded the following information about you: Allergies As of Date: 02/07/2023 Noted Allergy Reaction AMPICILLIN 10/28/2019 14 - Other: See Comments Comments: childhood allergy- hives Date Reviewed: 12/14/2022 Reviewed by: Stuart Guerrero APRN.CITY PLANNER - Fully Assessed Reason for Visit: Opened in Error [Other] Prescriptions as of 02/07/2023 - letrozole (FEMARA) 2.5 mg tablet Take 3 tablets by mouth once daily. - letrozole (FEMARA) 2.5 mg tablet Take 3 tablets by mouth once daily. - clomiPHENe (SEROPHENE) 50 mg tablet Take 2 tablets by mouth once daily. - Follitropin Beta (FOLLISTIM AQ) 900 unit/1.08 mL Inject 450 Units subcutaneously once daily. - Ganirelix Acetate 250 mcg/0.5 mL Inject 1 syringe daily subcutaneous before 8am. Inject same time each day - leuprolide (LUPRON) 1 mg/0.2 mL Inject 80 units subcutaneous once as directed for Lupron trigger - Insulin Syringe-Needle U-100 1 mL 29 gauge x 7/16 syrg Inject 80 units subcutaneously once as directed for Lupron trigger - chorionic gonadotropin (PREGNYL) 10,000 unit solr 10,000 Units as directed. Mix vials as directed per nursing in office. Administer subcutaneous. - Insulin Syringe-Needle U-100 0.5 mL 29 gauge x 1/2 To be used to draw up and inject low dose HCG - Needle, Disp, 27 G (BD DISPOSABLE NEEDLES) 27 gauge x 1/2 ndle To be used to inject HCG trigger - Syringe with Needle, Disp, (SYRINGE 3CC/20GX1) 3 mL 20 gauge x 1 To be used to mix, draw up and inject HCG trigger - Syringe-Needle, Safety,Disp Un 5 mL 20 gauge x 1 syrg To be used to mix low dose HCG - Sharps Container-Ins Syrng-Ndl 1/2 mL 30 x 1/2 syrg 1 Container as directed. For low dose HCG Pregnyl 24187 units with 5ml syringe and needle to mix and 15 insulin syringes. - Sharps Container-Ins Syrng-Ndl 1/2 mL 30 x 1/2 syrg 1 Container as directed. Pregnyl trigger 49977 Units #1 with syringes and needles. - ethynodiol diacetate-ethinyl estradiol 1 mg-35 mcg (ZOVIA , ,) 1-35 mg-mcg per tablet Take 1 tablet by mouth once daily. - Cholecalciferol, Vitamin D3, (VITAMIN D) 25 mcg (1,000 unit) cap Take 1,000 Units by mouth once daily. - amphetamine-dextroamphe tamine XR (ADDERALL XR) 15 mg 24 hr capsule Take 15 mg by mouth once daily. - PNV no.95/ferrous fum/folic ac ( ORAL) Take by mouth once daily. - buPROPion XL (WELLBUTRIN XL) 150 mg 24 hr tablet Take 150 mg by mouth once daily. 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 The patient reports no problems or complaints. Ultrasound and blood will be reviewed by the physician, the flow sheet will be updated and instructions will be communicated to the patient. Patient did not stay to meet with nursing. Freda Gerard RN Called patient with recommendation to cancel cycle. Patient cancelled her appointment with Dr. Sebastian, she is not sure she wants to do donor eggs at this time. Advised her if she wants to go that route to call to set up an appointment with either Dr. Sebastian or Dr. Luke. She states understanding. Freda Gerard RN January 22, 2023 1:42 PM Referring Provider: STUART GUERRERO [[id number]] Allergies As of Date: 01/22/2023 Noted Allergy Reaction AMPICILLIN 10/28/2019 14 - Other: See Comments Comments: childhood allergy- hives Date Reviewed: 12/14/2022 Reviewed by: Stuart Guerrero APRN.CITY PLANNER - Fully Assessed Reason for Visit: Infertility [285] Visit Diagnosis:Encounter for fertility testing [Z31.41] Order(s):FOLLICULAR [facility] [[id number]] Order #: [id number]: 6 PROGESTERONE BLD [SQPROG] Order #: [id number] FUTURE PROGESTERONE BLD [SQPROG] Order #: [id number]. #:[id number] Prescriptions as of 01/22/2023 - letrozole (FEMARA) 2.5 mg tablet Take 3 tablets by mouth once daily. - letrozole (FEMARA) 2.5 mg tablet Take 3 tablets by mouth once daily. - clomiPHENe (SEROPHENE) 50 mg tablet Take 2 tablets by mouth once daily. - Follitropin Beta (FOLLISTIM AQ) 900 unit/1.08 mL Inject 450 Units subcutaneously once daily. - Ganirelix Acetate 250 mcg/0.5 mL Inject 1 syringe daily subcutaneous before 8am. Inject same time each day - leuprolide (LUPRON) 1 mg/0.2 mL Inject 80 units subcutaneous once as directed for Lupron trigger - Insulin Syringe-Needle U-100 1 mL 29 gauge x 7/16 syrg Inject 80 units subcutaneously once as directed for Lupron trigger - chorionic gonadotropin (PREGNYL) 10,000 unit solr 10,000 Units as directed. Mix vials as directed per nursing in office. Administer subcutaneous. - Insulin Syringe-Needle U-100 0.5 mL 29 gauge x 1/2 To be used to draw up and inject low dose HCG - Needle, Disp, 27 G (BD DISPOSABLE NEEDLES) 27 gauge x 1/2 ndle To be used to inject HCG trigger - Syringe with Needle, Disp, (SYRINGE 3CC/20GX1) 3 mL 20 gauge x 1 To be used to mix, draw up and inject HCG trigger - Syringe-Needle, Safety,Disp Un 5 mL 20 gauge x 1 syrg To be used to mix low dose HCG - Sharps Container-Ins Syrng-Ndl 1/2 mL 30 x 1/2 syrg 1 Container as directed. For low dose HCG Pregnyl 66078 units with 5ml syringe and needle to mix and 15 insulin syringes. - Sharps Container-Ins Syrng-Ndl 1/2 mL 30 x 1/2 syrg 1 Container as directed. Pregnyl trigger 66252 Units #1 with syringes and needles. - ethynodiol diacetate-ethinyl estradiol 1 mg-35 mcg (ZOVIA , 28,) 1-35 mg-mcg per tablet Take 1 tablet by mouth once daily. - Cholecalciferol, Vitamin D3, (VITAMIN D) 25 mcg (1,000 unit) cap Take 1,000 Units by mouth once daily. - amphetamine-dextroamphe tamine XR (ADDERALL XR) 15 mg 24 hr capsule Take 15 mg by mouth once daily. - PNV no.95/ferrous fum/folic ac ( ORAL) Take by mouth once daily. - buPROPion XL (WELLBUTRIN XL) 150 mg 24 hr tablet Take 150 mg by mouth once daily. 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 The drug causes an interference leading to falsely elevated estradiol results. 50^Below measuring range Menstrual cycle Estradiol reference ranges: Follicular : < 234 pg/mL Ovulation : 41 to 398 pg/mL Luteal : < 342 pg/mL Estradiol reference ranges vary by gestational period: First trimester : 154 to 3243 pg/mL Second trimester : 1561 to 90115 pg/mL Third trimester : 8285 to >74042 pg/mL Post-menopausal Estradiol reference range: < 41 pg/mL Reference: 1. Estradiol - E2 (Estradiol III) [package insert V 3.0 Luxembourger]. [facility], [place], [place], November 2015. Performed By: #### 2 243-4 ####[facility] LABCLIA [id number] [place] [id number] [place] PROGESTERONE BLDon 3 Progesterone [Mass/Vol] 0.8 ng/mL See comment ng/mL [facility] Progest SerPl-mCncon 023 Progesterone [Mass/Vol] 0.8 ng/mL Normal See comment [facility] Comment on above: Order Comment: Speci men Type: BLOOD SPECIMENOrdering Facility: [facility] Address: [address] [place] [phone] Result Comment: Mens trual Cycle Progesterone Reference Ranges: Follicular: <1.0 ng/mL Ovulation: <12.1 ng/mL Luteal: 1.8 to 23.9 ng/mL. Progesterone Reference Ranges vary by gestational period: First Trimester: 11.0 to 44.3 ng/mL Second Trimester: >25.3 ng/mL Third Trimester: >58.6 ng/mL Post menopausal Progesterone: <0.5 ng/mL Reference: 1. Progesterone (Progesterone III) [package insert V 1.0 Luxembourger]. [facility], [place], [place]. March 2015. Performed By: #### 2 839-9 ####[facility]CLIA [id number] [place] [id number] [facility] CNNURSEon 01-15-2023 CNNURSE Nurse Visit (REIBD) LATONYA RODARTE ([id number]) 1985 F Date Time Provider Department 01/15/23 7:30 AM NURSE [facility] BEAC REIBD During your visit today, we recorded the following information about you: Aydee More RN 01/15/2023 4:34 PM Signed The patient is here today for follicular ultrasound and blood work. The patient reports no problems or complaints. Ultrasound and blood will be reviewed by the physician, the flow sheet will be updated and instructions will be communicated to the patient. Pt did not stay to meet with nursing. Freda Taylor RN, RN 01/15/2023 4:34 PM Signed Called patient with plan, take letrozole the next 4 days and return to clinic on 01/22. Patient states understanding, no further questions at this time. Freda Gerard RN Referring Provider: STUART GUERRERO [[id number]] Allergies As of Date: 01/15/2023 Noted Allergy Reaction AMPICILLIN 10/28/2019 14 - Other: See Comments Comments: childhood allergy- hives Date Reviewed: 12/14/2022 Reviewed by: Dudziak, Stuart, NURSE PRACTITIONER.CITY PLANNER - Fully Assessed Reason for Visit: Infertility [285] Visit Diagnosis:Encounter for fertility testing [Z31.41] Order(s):FOLLICULAR US [facility] [[id number]] Order #: [id number]: 6 Prescriptions as of 01/15/2023 - letrozole (FEMARA) 2.5 mg tablet Take 3 tablets by mouth once daily. - letrozole (FEMARA) 2.5 mg tablet Take 3 tablets by mouth once daily. - clomiPHENe (SEROPHENE) 50 mg tablet Take 2 tablets by mouth once daily. - Follitropin Beta (FOLLISTIM AQ) 900 unit/1.08 mL Inject 450 Units subcutaneously once daily. - Ganirelix Acetate 250 mcg/0.5 mL Inject 1 syringe daily subcutaneous before 8am. Inject same time each day - leuprolide (LUPRON) 1 mg/0.2 mL Inject 80 units subcutaneous once as directed for Lupron trigger - Insulin Syringe-Needle U-100 1 mL 29 gauge x 7/16 syrg Inject 80 units subcutaneously once as directed for Lupron trigger - chorionic gonadotropin (PREGNYL) 10,000 unit solr 10,000 Units as directed. Mix vials as directed per nursing in office. Administer subcutaneous. - Insulin Syringe-Needle U-100 0.5 mL 29 gauge x 1/2 To be used to draw up and inject low dose HCG - Needle, Disp, 27 G (BD DISPOSABLE NEEDLES) 27 gauge x 1/2 ndle To be used to inject HCG trigger - Syringe with Needle, Disp, (SYRINGE 3CC/20GX1) 3 mL 20 gauge x 1 To be used to mix, draw up and inject HCG trigger - Syringe-Needle, Safety,Disp Un 5 mL 20 gauge x 1 syrg To be used to mix low dose HCG - Sharps Container-Ins Syrng-Ndl 1/2 mL 30 x 1/2 syrg 1 Container as directed. For low dose HCG Pregnyl 62117 units with 5ml syringe and needle to mix and 15 insulin syringes. - [employer] Container-Ins Syrng-Ndl 1/2 mL 30 x 1/2 syrg 1 Container as directed. Pregnyl trigger 21889 Units #1 with syringes and needles. - ethynodiol diacetate-ethinyl estradiol 1 mg-35 mcg (ZOVIA E, 28,) 1-35 mg-mcg per tablet Take 1 tablet by mouth once daily. - Cholecalciferol, Vitamin D3, (VITAMIN D) 25 mcg (1,000 unit) cap Take 1,000 Units by mouth once daily. - amphetamine-dextroamphe tamine XR (ADDERALL XR) 15 mg 24 hr capsule Take 15 mg by mouth once daily. - PNV no.95/ferrous fum/folic ac ( ORAL) Take by mouth once daily. - buPROPion XL (WELLBUTRIN XL) 150 mg 24 hr tablet Take 150 mg by mouth once daily. 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 The drug causes an interference leading to falsely elevated estradiol results. 50^Below measuring range Menstrual cycle Estradiol reference ranges: Follicular : < 234 pg/mL Ovulation : 41 to 398 pg/mL Luteal : < 342 pg/mL Estradiol reference ranges vary by gestational period: First trimester : 154 to 3243 pg/mL Second trimester : 1561 to 69453 pg/mL Third trimester : 8285 to >29038 pg/mL Post-menopausal Estradiol reference range: < 41 pg/mL Reference: 1. Estradiol - E2 (Estradiol III) [package insert V 3.0 Luxembourger]. [employer] [facility], [place], [place], November 2015. Performed By: #### 2 243-4 ####[facility] [id number] [place] [id number] [facility] [place] 01-12-2023 DEREKN Telephone (REIBD) LATONYA RODARTE ([id number]) 1985 F Date Time Provider Department 01/12/23 SOREN SEBASTIAN REIBCindy During your visit today, we recorded the following information about you: Ramila Dias 01/12/2023 3:21 PM Signed Pt started her cycle today would like to discuss next steps, speaking with nurse Freda Kee RN 01/12/2023 4:14 PM Signed Returned phone call. Left voicemail message advising to start letrozole Sunday, come in Sunday for baseline. Sent request for appointment Sunday at 7:30. Freda Gerard RN January 12, 2023 4:13 PM Allergies As of Date: 01/12/2023 Noted Allergy Reaction AMPICILLIN 10/28/2019 14 - Other: See Comments Comments: childhood allergy- hives Date Reviewed: 12/14/2022 Reviewed by: Stuart Guerrero APRN.CITY PLANNER - Fully Assessed Reason for Visit: cd 1 [Other] Prescriptions as of 01/12/2023 - letrozole (FEMARA) 2.5 mg tablet Take 3 tablets by mouth once daily. - letrozole (FEMARA) 2.5 mg tablet Take 3 tablets by mouth once daily. - clomiPHENe (SEROPHENE) 50 mg tablet Take 2 tablets by mouth once daily. - Follitropin Beta (FOLLISTIM AQ) 900 unit/1.08 mL Inject 450 Units subcutaneously once daily. - Ganirelix Acetate 250 mcg/0.5 mL Inject 1 syringe daily subcutaneous before 8am. Inject same time each day - leuprolide (LUPRON) 1 mg/0.2 mL Inject 80 units subcutaneous once as directed for Lupron trigger - Insulin Syringe-Needle U-100 1 mL 29 gauge x 7/16 syrg Inject 80 units subcutaneously once as directed for Lupron trigger - chorionic gonadotropin (PREGNYL) 10,000 unit solr 10,000 Units as directed. Mix vials as directed per nursing in office. Administer subcutaneous. - Insulin Syringe-Needle U-100 0.5 mL 29 gauge x 1/2 To be used to draw up and inject low dose HCG - Needle, Disp, 27 G (BD DISPOSABLE NEEDLES) 27 gauge x 1/2 ndle To be used to inject HCG trigger - Syringe with Needle, Disp, (SYRINGE 3CC/20GX1) 3 mL 20 gauge x 1 To be used to mix, draw up and inject HCG trigger - Syringe-Needle, Safety,Disp Un 5 mL 20 gauge x 1 syrg To be used to mix low dose HCG - Sharps Container-Ins Syrng-Ndl 1/2 mL 30 x 1/2 syrg 1 Container as directed. For low dose HCG Pregnyl 41955 units with 5ml syringe and needle to mix and 15 insulin syringes. - [employer]ps Container-Ins Syrng-Ndl 1/2 mL 30 x 1/2 syrg 1 Container as directed. Pregnyl trigger 56885 Units #1 with syringes and needles. - ethynodiol diacetate-ethinyl estradiol 1 mg-35 mcg (ZOVIA E, 28,) 1-35 mg-mcg per tablet Take 1 tablet by mouth once daily. - Cholecalciferol, Vitamin D3, (VITAMIN D) 25 mcg (1,000 unit) cap Take 1,000 Units by mouth once daily. - amphetamine-dextroamphe tamine XR (ADDERALL XR) 15 mg 24 hr capsule Take 15 mg by mouth once daily. - PNV no.95/ferrous fum/folic ac ( ORAL) Take by mouth once daily. - buPROPion XL (WELLBUTRIN XL) 150 mg 24 hr tablet Take 150 mg by mouth once daily. 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 in [place] ,speaking with Nurse Freda Gerard RN 12/14/2022 2:45 PM Signed Called patient to advise her we have sent letrozole to the pharmacy she requested. Patient states understanding. Freda Gerard RN December 14, 2022 2:45 PM Allergies As of Date: 12/14/2022 Noted Allergy Reaction AMPICILLIN 10/28/2019 14 - Other: See Comments Comments: childhood allergy- hives Date Reviewed: 12/14/2022 Reviewed by: Stuart Guerrero APRN.CITY PLANNER - Fully Assessed Reason for Visit: switching pharamacy [Other] Order(s):letrozole (FEMARA) 2.5 mg tabletTake 3 tablets by mouth once daily.Disp: 15 tabletRfl: 0 Prescriptions as of 12/14/2022 - letrozole (FEMARA) 2.5 mg tablet Take 3 tablets by mouth once daily. - letrozole (FEMARA) 2.5 mg tablet Take 3 tablets by mouth once daily. - clomiPHENe (SEROPHENE) 50 mg tablet Take 2 tablets by mouth once daily. - Follitropin Beta (FOLLISTIM AQ) 900 unit/1.08 mL Inject 450 Units subcutaneously once daily. - Ganirelix Acetate 250 mcg/0.5 mL Inject 1 syringe daily subcutaneous before 8am. Inject same time each day - leuprolide (LUPRON) 1 mg/0.2 mL Inject 80 units subcutaneous once as directed for Lupron trigger - Insulin Syringe-Needle U-100 1 mL 29 gauge x 7/16 syrg Inject 80 units subcutaneously once as directed for Lupron trigger - chorionic gonadotropin (PREGNYL) 10,000 unit solr 10,000 Units as directed. Mix vials as directed per nursing in office. Administer subcutaneous. - Insulin Syringe-Needle U-100 0.5 mL 29 gauge x 1/2 To be used to draw up and inject low dose HCG - Needle, Disp, 27 G (BD DISPOSABLE NEEDLES) 27 gauge x 1/2 ndle To be used to inject HCG trigger - Syringe with Needle, Disp, (SYRINGE 3CC/20GX1) 3 mL 20 gauge x 1 To be used to mix, draw up and inject HCG trigger - Syringe-Needle, Safety,Disp Un 5 mL 20 gauge x 1 syrg To be used to mix low dose HCG - [employer] Container-Ins Syrng-Ndl 1/2 mL 30 x 1/2 syrg 1 Container as directed. For low dose HCG Pregnyl 63496 units with 5ml syringe and needle to mix and 15 insulin syringes. - Sharps Container-Ins Syrng-Ndl 1/2 mL 30 x 1/2 syrg 1 Container as directed. Pregnyl trigger 22082 Units #1 with syringes and needles. - ethynodiol diacetate-ethinyl estradiol 1 mg-35 mcg (ZOVIA E, 28,) 1-35 mg-mcg per tablet Take 1 tablet by mouth once daily. - Cholecalciferol, Vitamin D3, (VITAMIN D) 25 mcg (1,000 unit) cap Take 1,000 Units by mouth once daily. - amphetamine-dextroamphe tamine XR (ADDERALL XR) 15 mg 24 hr capsule Take 15 mg by mouth once daily. - PNV no.95/ferrous fum/folic ac ( ORAL) Take by mouth once daily. - buPROPion XL (WELLBUTRIN XL) 150 mg 24 hr tablet Take 150 mg by mouth once daily. 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 Medications Discontinued During This Encounter Prescriptions - letrozole (FEMARA) 2.5 mg tablet (Discontinued) Take 3 tablets by mouth once daily. Encounter Status:Closed by ST[facility] LAT[facility]OD[facility] ([id number]) 1985 F Date Time Provider Department 12/12/22 [facility] REIBD During your visit today, we recorded the following information about you: Ginny Jackson 12/14/2022 7:44 AM Signed Estimate created. Need to call pt to collect for IVF #5 Gaye Suarez 12/14/2022 8:23 AM Signed IVF #5 NOT CLEARED PT STATED NOT A GOOD TIME. SHE WILL CALL BACK Allergies As of Date: 12/12/2022 Noted Allergy Reaction AMPICILLIN 10/28/2019 14 - Other: See Comments Comments: childhood allergy- hives Date Reviewed: 10/17/2022 Reviewed by: Stuart Guerrero APRN.CITY PLANNER - Fully Assessed Reason for Visit: Patient Question [3197] Prescriptions as of 12/14/2022 - letrozole (FEMARA) 2.5 mg tablet Take 3 tablets by mouth once daily. - letrozole (FEMARA) 2.5 mg tablet Take 3 tablets by mouth once daily. - clomiPHENe (SEROPHENE) 50 mg tablet Take 2 tablets by mouth once daily. - Follitropin Beta (FOLLISTIM AQ) 900 unit/1.08 mL Inject 450 Units subcutaneously once daily. - Ganirelix Acetate 250 mcg/0.5 mL Inject 1 syringe daily subcutaneous before 8am. Inject same time each day - leuprolide (LUPRON) 1 mg/0.2 mL Inject 80 units subcutaneous once as directed for Lupron trigger - Insulin Syringe-Needle U-100 1 mL 29 gauge x 7/16 syrg Inject 80 units subcutaneously once as directed for Lupron trigger - chorionic gonadotropin (PREGNYL) 10,000 unit solr 10,000 Units as directed. Mix vials as directed per nursing in office. Administer subcutaneous. - Insulin Syringe-Needle U-100 0.5 mL 29 gauge x 1/2 To be used to draw up and inject low dose HCG - Needle, Disp, 27 G (BD DISPOSABLE NEEDLES) 27 gauge x 1/2 ndle To be used to inject HCG trigger - Syringe with Needle, Disp, (SYRINGE 3CC/20GX1) 3 mL 20 gauge x 1 To be used to mix, draw up and inject HCG trigger - Syringe-Needle, Safety,Disp Un 5 mL 20 gauge x 1 syrg To be used to mix low dose HCG - [employer] Container-Ins Syrng-Ndl 1/2 mL 30 x 1/2 syrg 1 Container as directed. For low dose HCG Pregnyl 89440 units with 5ml syringe and needle to mix and 15 insulin syringes. - Sharps Container-Ins Syrng-Ndl 1/2 mL 30 x 1/2 syrg 1 Container as directed. Pregnyl trigger 24463 Units #1 with syringes and needles. - ethynodiol diacetate-ethinyl estradiol 1 mg-35 mcg (ZOVIA E, 28,) 1-35 mg-mcg per tablet Take 1 tablet by mouth once daily. - Cholecalciferol, Vitamin D3, (VITAMIN D) 25 mcg (1,000 unit) cap Take 1,000 Units by mouth once daily. - amphetamine-dextroamphe tamine XR (ADDERALL XR) 15 mg 24 hr capsule Take 15 mg by mouth once daily. - PNV no.95/ferrous fum/folic ac ( ORAL) Take by mouth once daily. - buPROPion XL (WELLBUTRIN XL) 150 mg 24 hr tablet Take 150 mg by mouth once daily. 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 Patient would like to try one more time, she is interested in doing the same cycle she did in July. Advised her I will reach out to Dr. Sebastian and get back to her. Patient states understanding. Freda Gerard RN December 12, 2022 9:[address] Sebastian, he is ok with one more cycle. New episode created, patient will call with late December/January period to baseline. Freda Gerard RN December 12, 2022 3:22 PM Freda Gerard RN 12/12/2022 3:22 PM Signed Addended by: FREDA GERARD RN on: 12/12/2022 03:22 PM Modules accepted: Orders Adri Baires APRN.CNP 12/12/2022 3:28 PM Signed Addended by: ADRI BAIRES on: 12/12/2022 03:28 PM Modules accepted: Orders Allergies As of Date: 12/12/2022 Noted Allergy Reaction AMPICILLIN 10/28/2019 14 - Other: See Comments Comments: childhood allergy- hives Date Reviewed: 10/17/2022 Reviewed by: Stuart Guerrero APRN.CITY PLANNER - Fully Assessed Reason for Visit: Patient Question [9567] Primary Visit Diagnosis:Treatment plan provided [Z71.9] Order(s):letrozole (FEMARA) 2.5 mg tabletTake 3 tablets by mouth once daily.Disp: 15 tabletRfl: 0 Prescriptions as of 12/12/2022 - letrozole (FEMARA) 2.5 mg tablet Take 3 tablets by mouth once daily. - letrozole (FEMARA) 2.5 mg tablet Take 3 tablets by mouth once daily. - clomiPHENe (SEROPHENE) 50 mg tablet Take 2 tablets by mouth once daily. - Follitropin Beta (FOLLISTIM AQ) 900 unit/1.08 mL Inject 450 Units subcutaneously once daily. - Ganirelix Acetate 250 mcg/0.5 mL Inject 1 syringe daily subcutaneous before 8am. Inject same time each day - leuprolide (LUPRON) 1 mg/0.2 mL Inject 80 units subcutaneous once as directed for Lupron trigger - Insulin Syringe-Needle U-100 1 mL 29 gauge x 7/16 syrg Inject 80 units subcutaneously once as directed for Lupron trigger - chorionic gonadotropin (PREGNYL) 10,000 unit solr 10,000 Units as directed. Mix vials as directed per nursing in office. Administer subcutaneous. - Insulin Syringe-Needle U-100 0.5 mL 29 gauge x 1/2 To be used to draw up and inject low dose HCG - Needle, Disp, 27 G (BD DISPOSABLE NEEDLES) 27 gauge x 1/2 ndle To be used to inject HCG trigger - Syringe with Needle, Disp, (SYRINGE 3CC/20GX1) 3 mL 20 gauge x 1 To be used to mix, draw up and inject HCG trigger - Syringe-Needle, Safety,Disp Un 5 mL 20 gauge x 1 syrg To be used to mix low dose HCG - [employer] Container-Ins Syrng-Ndl 1/2 mL 30 x 1/2 syrg 1 Container as directed. For low dose HCG Pregnyl 22562 units with 5ml syringe and needle to mix and 15 insulin syringes. - [employer]ps Container-Ins Syrng-Ndl 1/2 mL 30 x 1/2 syrg 1 Container as directed. Pregnyl trigger 53889 Units #1 with syringes and needles. - ethynodiol diacetate-ethinyl estradiol 1 mg-35 mcg (ZOVIA , 28,) 1-35 mg-mcg per tablet Take 1 tablet by mouth once daily. - Cholecalciferol, Vitamin D3, (VITAMIN D) 25 mcg (1,000 unit) cap Take 1,000 Units by mouth once daily. - amphetamine-dextroamphe tamine XR (ADDERALL XR) 15 mg 24 hr capsule Take 15 mg by mouth once daily. - PNV no.95/ferrous fum/folic ac ( ORAL) Take by mouth once daily. - buPROPion XL (WELLBUTRIN XL) 150 mg 24 hr tablet Take 150 mg by mouth once daily. 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 Encounter Status:Closed by FREDA GERARD RN on 12/12/22 [facility] CNNURSEon 11-23-2022 [facility] Nurse Visit (REIBD) LATONYA RODARTE ([id number]) 1985 F Date Time Provider Department 11/23/22 7:30 AM NURSE [facility] REIBD During your visit today, we recorded the following information about you: Aydee More RN 11/25/2022 10:33 AM Signed The patient is here today for follicular ultrasound and blood work. The patient reports no problems or complaints. Ultrasound and blood will be reviewed by the physician, the flow sheet will be updated and instructions will be communicated to the patient. Pt did not stay to meet with nursing. Freda Taylor RN, RN 11/25/2022 10:33 AM Signed Called patient with recommendation to cancel this cycle. Advised patient Dr. Sebastian wants to follow up with patient. Patient states understanding, agrees to plan, patient is understandably disappointed and sad. Patient asking if he is going to recommend donor eggs, advised that is a possibility. Patient is going to speak with her , in the meantime requesting an appointment with Dr. Sebastian. Chart sent to scheduling. Freda Gerard RN November 23, 2022 3:11 PM Referring Provider: STUART GUERRERO [[id number]] Allergies As of Date: 11/23/2022 Noted Allergy Reaction AMPICILLIN 10/28/2019 14 - Other: See Comments Comments: childhood allergy- hives Date Reviewed: 10/17/2022 Reviewed by: Stuart Guerrero APRN.CITY PLANNER - Fully Assessed Reason for Visit: Infertility [285] Visit Diagnosis:Encounter for fertility testing [Z31.41] Order(s):FOLLICULAR US WHI [9042126] Order #: [id number]: 6 PROGESTERONE BLD [SQPROG] Order #: [id number] FUTURE ESTRADIOL-17B BLD [SQE2] Order #: [id number]. #:[id number] PROGESTERONE BLD [SQPROG] Order #: [id number]. #:[id number] Prescriptions as of 01/09/2023 - letrozole (FEMARA) 2.5 mg tablet Take 3 tablets by mouth once daily. - letrozole (FEMARA) 2.5 mg tablet Take 3 tablets by mouth once daily. - clomiPHENe (SEROPHENE) 50 mg tablet Take 2 tablets by mouth once daily. - Follitropin Beta (FOLLISTIM AQ) 900 unit/1.08 mL Inject 450 Units subcutaneously once daily. - Ganirelix Acetate 250 mcg/0.5 mL Inject 1 syringe daily subcutaneous before 8am. Inject same time each day - leuprolide (LUPRON) 1 mg/0.2 mL Inject 80 units subcutaneous once as directed for Lupron trigger - Insulin Syringe-Needle U-100 1 mL 29 gauge x 7/16 syrg Inject 80 units subcutaneously once as directed for Lupron trigger - chorionic gonadotropin (PREGNYL) 10,000 unit solr 10,000 Units as directed. Mix vials as directed per nursing in office. Administer subcutaneous. - Insulin Syringe-Needle U-100 0.5 mL 29 gauge x 1/2 To be used to draw up and inject low dose HCG - Needle, Disp, 27 G (BD DISPOSABLE NEEDLES) 27 gauge x 1/2 ndle To be used to inject HCG trigger - Syringe with Needle, Disp, (SYRINGE 3CC/20GX1) 3 mL 20 gauge x 1 To be used to mix, draw up and inject HCG trigger - Syringe-Needle, Safety,Disp Un 5 mL 20 gauge x 1 syrg To be used to mix low dose HCG - [employer]ps Container-Ins Syrng-Ndl 1/2 mL 30 x 1/2 syrg 1 Container as directed. For low dose HCG Pregnyl 30006 units with 5ml syringe and needle to mix and 15 insulin syringes. - Sharps Container-Ins Syrng-Ndl 1/2 mL 30 x 1/2 syrg 1 Container as directed. Pregnyl trigger 65122 Units #1 with syringes and needles. - ethynodiol diacetate-ethinyl estradiol 1 mg-35 mcg (ZOVIA E, 28,) 1-35 mg-mcg per tablet Take 1 tablet by mouth once daily. - Cholecalciferol, Vitamin D3, (VITAMIN D) 25 mcg (1,000 unit) cap Take 1,000 Units by mouth once daily. - amphetamine-dextroamphe tamine XR (ADDERALL XR) 15 mg 24 hr capsule Take 15 mg by mouth once daily. - PNV no.95/ferrous fum/folic ac ( ORAL) Take by mouth once daily. - buPROPion XL (WELLBUTRIN XL) 150 mg 24 hr tablet Take 150 mg by mouth once daily. 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 Anemia in other chronic diseases classified els*07/12/2020 Incontinence of feces [R15.9] 07/12/2020 Kidney stone [N20.0] Encounter Status:Closed by WIL LUKE on 11/25/22 [facility] ESTRADIOL-17B BLDon 11-24-19 E2 [Mass/Vol] 42 pg/mL [facility] Estradiol SerPl-mCncon 11-23 E2 [Mass/Vol] 42 pg/mL [facility] Comment on above: Order Comment: Speci men Type: BLOOD SPECIMENOrdering Facility: [facility] Address: [address] [place], [place] [id number] Result Comment: This test is not suitable for patients receiving treatment with the drug Fulvestrant (Faslodex). The drug causes an interference leading to falsely elevated estradiol results. Menstrual cycle Estradiol reference ranges: Follicular : < 234 pg/mL Ovulation : 41 to 398 pg/mL Luteal : < 342 pg/mL Estradiol reference ranges vary by gestational period: First trimester : 154 to 3243 pg/mL Second trimester : 1561 to 54659 pg/mL Third trimester : 8285 to >81319 pg/mL Post-menopausal Estradiol reference range: < 41 pg/mL Reference: 1. Estradiol - E2 (Estradiol III) [package insert V 3.0 Luxem[place]]. [employer], [place], [place], November 2015. Performed By: #### 2 243-4, 2839-9 ####[facility] [id number] [place] [address] [place] PROGESTERONE BLDon 3 Progesterone [Mass/Vol] 3.1 ng/mL High See comment ng/mL [facility] Progest SerPl-mCncon 023 Progesterone [Mass/Vol] 3.1 ng/mL High See comment [facility] Comment on above: Order Comment: Speci men Type: BLOOD SPECIMENOrdering Facility: [facility] Address: [address] [place], [place] [phone] Result Comment: Mens trual Cycle Progesterone Reference Ranges: Follicular: <1.0 ng/mL Ovulation: <12.1 ng/mL Luteal: 1.8 to 23.9 ng/mL. Progesterone Reference Ranges vary by gestational period: First Trimester: 11.0 to 44.3 ng/mL Second Trimester: >25.3 ng/mL Third Trimester: >58.6 ng/mL Post menopausal Progesterone: <0.5 ng/mL Reference: 1. Progesterone (Progesterone III) [package insert V 1.0 [place]]. [employer] [facility], [place], [place]. March 2015. Performed By: #### 2 243-4, 2839-9 ####[facility] [id number] [place] [address] [facility] CNNURSEon 11-22-2022 CNN[facility] Nurse Visit (REIBD) CAYDENLATONYA ([id number]) 1985 F Date Time Provider Department 11/22/22 7:45 AM NURSE [facility] During your visit today, we recorded the following information about you: Freda Gerard RN 11/22/2022 2:02 PM Addendum The patient is here today for follicular ultrasound and blood work. The patient reports no problems or complaints. Ultrasound and blood will be reviewed by the physician, the flow sheet will be updated and instructions will be communicated to the patient. Patient did not stay to meet with nursing. Freda Gerard RN Called patient with plan. Start ganirelix today, continue follistim and return to clinic tomorrow. Patient states understanding, request sent for appointment tomorrow at 0730. Freda Gerard RN November 22, 2022 2:01 PM Referring Provider: STUART GUERRERO [[id number]] Allergies As of Date: 11/22/2022 Noted Allergy Reaction AMPICILLIN 10/28/2019 14 - Other: See Comments Comments: childhood allergy- hives Date Reviewed: 10/17/2022 Reviewed by: Stuart Guerrero APRN.CITY PLANNER - Fully Assessed Primary Visit Diagnosis:Female infertility [N97.9] Other Visit Diagnosis:Encounter for fertility testing [Z31.41] Order(s):FOLLICULAR US WHI [8701917] Order #: [id number] #:[id number] WPOINTQty: 6 ESTRADIOL-17B BLD [SQE2] Order #: [id number]. #:[id number] Prescriptions as of 11/22/2022 - letrozole (FEMARA) 2.5 mg tablet Take 3 tablets by mouth once daily. - clomiPHENe (SEROPHENE) 50 mg tablet Take 2 tablets by mouth once daily. - Follitropin Beta (FOLLISTIM AQ) 900 unit/1.08 mL Inject 450 Units subcutaneously once daily. - Ganirelix Acetate 250 mcg/0.5 mL Inject 1 syringe daily subcutaneous before 8am. Inject same time each day - leuprolide (LUPRON) 1 mg/0.2 mL Inject 80 units subcutaneous once as directed for Lupron trigger - Insulin Syringe-Needle U-100 1 mL 29 gauge x 7/16 syrg Inject 80 units subcutaneously once as directed for Lupron trigger - chorionic gonadotropin (PREGNYL) 10,000 unit solr 10,000 Units as directed. Mix vials as directed per nursing in office. Administer subcutaneous. - Insulin Syringe-Needle U-100 0.5 mL 29 gauge x 1/2 To be used to draw up and inject low dose HCG - Needle, Disp, 27 G (BD DISPOSABLE NEEDLES) 27 gauge x 1/2 ndle To be used to inject HCG trigger - Syringe with Needle, Disp, (SYRINGE 3CC/20GX1) 3 mL 20 gauge x 1 To be used to mix, draw up and inject HCG trigger - Syringe-Needle, Safety,Disp Un 5 mL 20 gauge x 1 syrg To be used to mix low dose HCG - Sharps Container-Ins Syrng-Ndl 1/2 mL 30 x 1/2 syrg 1 Container as directed. For low dose HCG Pregnyl 08920 units with 5ml syringe and needle to mix and 15 insulin syringes. - [employer] Container-Ins Syrng-Ndl 1/2 mL 30 x 1/2 syrg 1 Container as directed. Pregnyl trigger 23075 Units #1 with syringes and needles. - ethynodiol diacetate-ethinyl estradiol 1 mg-35 mcg (ZOVIA 1/35E, 28,) 1-35 mg-mcg per tablet Take 1 tablet by mouth once daily. - Cholecalciferol, Vitamin D3, (VITAMIN D) 25 mcg (1,000 unit) cap Take 1,000 Units by mouth once daily. - amphetamine-dextroamphe tamine XR (ADDERALL XR) 15 mg 24 hr capsule Take 15 mg by mouth once daily. - PNV no.95/ferrous fum/folic ac ( ORAL) Take by mouth once daily. - buPROPion XL (WELLBUTRIN XL) 150 mg 24 hr tablet Take 150 mg by mouth once daily. 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 Anemia in other chronic diseases classified els*07/12/2020 Incontinence of feces [R15.9] 07/12/2020 Kidney stone [N20.0] Encounter Status:Closed by WIL LUKE on 11/22/22 Normal [facility] ESTRADIOL-17B BLDon 11-23-19 E2 [Mass/Vol] 31 pg/mL [facility] Estradiol SerPl-mCncon 11-22 E2 [Mass/Vol] 31 pg/mL Normal [facility] Comment on above: Order Comment: Speci men Type: BLOOD SPECIMENOrdering Facility: [facility] Address: [address] [place] [address] [place] [address] Result Comment: This test is not suitable for patients receiving treatment with the drug Fulvestrant (Faslodex). The drug causes an interference leading to falsely elevated estradiol results. Menstrual cycle Estradiol reference ranges: Follicular : < 234 pg/mL Ovulation : 41 to 398 pg/mL Luteal : < 342 pg/mL Estradiol reference ranges vary by gestational period: First trimester : 154 to 3243 pg/mL Second trimester : 1561 to 42484 pg/mL Third trimester : 8285 to >15061 pg/mL Post-menopausal Estradiol reference range: < 41 pg/mL Reference: 1. Estradiol - E2 (Estradiol III) [package insert V 3.0 [place]]. [facility], [place], [place], November 2015. Performed By: #### 2 243-4 ####[facility] [id number] [place] [address] [place] FOLLICULAR US WHIon 11-23-19 [facility] [place] 11-21-2022 MARQUITA Telephone (REIBD) CAYDENLATONYA M ([id number]) 1985 F Date Time Provider Department 11/21/22 SOREN SEBASTIAN REIBD During your visit today, we recorded the following information about you: Felciia Almaguer 11/21/2022 11:02 AM Signed Patient called did not see appt for tomorrow, scheduled monitoring appt for her. Freda Gerard RN 11/21/2022 3:23 PM Signed Patient has appointment scheduled tomorrow at 7:45. Freda Gerard RN November 21, 2022 3:23 PM Allergies As of Date: 11/21/2022 Noted Allergy Reaction AMPICILLIN 10/28/2019 14 - Other: See Comments Comments: childhood allergy- hives Date Reviewed: 10/17/2022 Reviewed by: Stuart Guerrero APRN.CITY PLANNER - Fully Assessed Reason for Visit: Freda re appt tomorrow [Other] Prescriptions as of 11/21/2022 - letrozole (FEMARA) 2.5 mg tablet Take 3 tablets by mouth once daily. - clomiPHENe (SEROPHENE) 50 mg tablet Take 2 tablets by mouth once daily. - Follitropin Beta (FOLLISTIM AQ) 900 unit/1.08 mL Inject 450 Units subcutaneously once daily. - Ganirelix Acetate 250 mcg/0.5 mL Inject 1 syringe daily subcutaneous before 8am. Inject same time each day - leuprolide (LUPRON) 1 mg/0.2 mL Inject 80 units subcutaneous once as directed for Lupron trigger - Insulin Syringe-Needle U-100 1 mL 29 gauge x 7/16 syrg Inject 80 units subcutaneously once as directed for Lupron trigger - chorionic gonadotropin (PREGNYL) 10,000 unit solr 10,000 Units as directed. Mix vials as directed per nursing in office. Administer subcutaneous. - Insulin Syringe-Needle U-100 0.5 mL 29 gauge x 1/2 To be used to draw up and inject low dose HCG - Needle, Disp, 27 G (BD DISPOSABLE NEEDLES) 27 gauge x 1/2 ndle To be used to inject HCG trigger - Syringe with Needle, Disp, (SYRINGE 3CC/20GX1) 3 mL 20 gauge x 1 To be used to mix, draw up and inject HCG trigger - Syringe-Needle, Safety,Disp Un 5 mL 20 gauge x 1 syrg To be used to mix low dose HCG - [employer] Container-Ins Syrng-Ndl 1/2 mL 30 x 1/2 syrg 1 Container as directed. For low dose HCG Pregnyl 11450 units with 5ml syringe and needle to mix and 15 insulin syringes. - [employer]-Ins Syrng-Ndl 1/2 mL 30 x 1/2 syrg 1 Container as directed. Pregnyl trigger 66240 Units #1 with syringes and needles. - ethynodiol diacetate-ethinyl estradiol 1 mg-35 mcg (ZOVIA , ,) 1-35 mg-mcg per tablet Take 1 tablet by mouth once daily. - Cholecalciferol, Vitamin D3, (VITAMIN D) 25 mcg (1,000 unit) cap Take 1,000 Units by mouth once daily. - amphetamine-dextroamphe tamine XR (ADDERALL XR) 15 mg 24 hr capsule Take 15 mg by mouth once daily. - PNV no.95/ferrous fum/folic ac ( ORAL) Take by mouth once daily. - buPROPion XL (WELLBUTRIN XL) 150 mg 24 hr tablet Take 150 mg by mouth once daily. 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 Anemia in other chronic diseases classified els*07/12/2020 Incontinence of feces [R15.9] 07/12/2020 Kidney stone [N20.0] Encounter Status:Closed by FREDA GERARD RN on 11/21/22 Normal [facility] ESTRADIOL-17B Don 11-16-19 E2 [Mass/Vol] 94 pg/mL [facility] PROGESTERONE Don Progesterone [Mass/Vol] 0.9 ng/mL See comment ng/mL [facility] ESTRADIOL-17B Don 09-08-19 E2 [Mass/Vol] 44 pg/mL [facility] FOLLICULAR US WHIon 09-08-19 23 [facility] ESTRADIOL-17B Don 09-05-19 E2 [Mass/Vol] 49 pg/mL [facility] FOLLICULAR US WHIon 09-05-19 [facility] FOLLICULAR US WHIon 08-30-19 23 [facility] FOLLICULAR US WHIon 08-11-19 [facility] Laboratory - Chemistry and C hemistry - challengeon 08-10-2022 HCG.beta subunit Qn 138.1 m[IU]/mL High <5.0 mIU/mL [facility] ESTRADIOL-17B Don 08-09-19 E2 [Mass/Vol] 294 pg/mL [facility] FOLLICULAR US WHIon 08-09-19 [facility] - Chemistry and C hemistry - challengeon 08-09-2022 Progesterone [Mass/Vol] 0.5 ng/mL See comment ng/mL [facility] Lutropin Qn 13.7 m[IU]/mL See comment mIU/mL [facility] ESTRADIOL-17B Don 08-08-19 E2 [Mass/Vol] 290 pg/mL [facility] FOLLICULAR US WHIon 08-08-19 [facility] LUTEINIZING HORMONEon 2022 Lutropin Qn 13.4 m[IU]/mL See comment mIU/mL [facility] PROGESTERONE Don 3 Progesterone [Mass/Vol] 0.5 ng/mL See comment ng/mL [facility] ESTRADIOL-17B Don 08-07-19 E2 [Mass/Vol] 218 pg/mL [facility] FOLLICULAR US WHIon 08-07-19 [facility] - Chemistry and C hemistry - challengeon 08-07-2022 Progesterone [Mass/Vol] 0.5 ng/mL See comment ng/mL [facility] Lutropin Qn 13.4 m[IU]/mL See comment mIU/mL [facility] FOLLICULAR US WHIon 08-03-19 23 [facility] - Chemistry and C hemistry - challengeon 08-03-2022 Progesterone [Mass/Vol] 0.5 ng/mL See comment ng/mL [facility] Lutropin Qn 39.2 m[IU]/mL See comment mIU/mL [facility] E2 [Mass/Vol] 50 pg/mL [facility] ESTRADIOL-17B BLDon 08-02-19 E2 [Mass/Vol] 31 pg/mL [facility] FOLLICULAR US Ion 08-02-19 23 [facility] LUTEINIZING HORMONEon 2022 Lutropin Qn 43.2 m[IU]/mL See comment mIU/mL [facility] PROGESTERONE Don Progesterone [Mass/Vol] 0.7 ng/mL See comment ng/mL [facility] ESTRADIOL-17B Don 07-25-19 E2 [Mass/Vol] [facility] FOLLICULAR US WHIon 07-25-19 [facility] ESTRADIOL-17B Don 07-06-19 E2 [Mass/Vol] 92 pg/mL [facility] FOLLICULAR US Ion 07-06-19 [facility] CONSULT PROGon 06-05-2022 CONSULT PROG HNO ID: [id number] Author: Soren Sebastian MD Service: ? Author Type: Physician Type: Consult Progress Note Filed: 06/05/2022 1:14 PM Note Text: VIRTUAL VISIT PROGRESS NOTE This is a virtual visit using Tamago video visit. It required patient-provider interaction for the medical decision making as documented below. Date of Consult: 06/05/2022 Consultation Requested By: Self-referred Latonya Rodarte is a 36 year old female presenting with the following history: HISTORY OF PRESENT ILLNESS: Latonya Rodarte is a 36 year old female PMHx: Uterus didelphys; imperforate anus PSHx: Rectovaginal fistula repair; Resection vaginal septum; Bilateral ureteral re-implantation; Bowel resection; Umbilical stoma (MACE); release of tethered spinal cord Desire for future fertility Reviewed operative reports with patient Her surgeons believe that we can proceed as required Patient reports continued difficulty with healing and bowel function after surgery Discussed to outcome of our CLUB LICENSEE/VERENICE portion of the surgery: 1 tube excised. I tube disconnected. Severe pelvic adhesions. Discussed preparation and transition to IVF planning once bowel function and incision healing improved and stable *Discussed menses started few days after IVF cycle cancellation/ LMP 06/02/22 *Discussed wants to continue embryo banking efforts *Discussed IVF stimulation protocol *Discussed mini-stimulation protocols *Discussed history of extensive pelvic 35 year old male partner without proven fertility SA: Normal Notes from previous encounter: 35 year old female PMHx: Uterus didelphys; imperforate anus PSHx: Rectovaginal fistula repair; Resection vaginal septum; Bilateral ureteral re-implantation; Bowel resection; Umbilical stoma (MACE); release of tethered spinal cord Desire for future fertility Reviewed operative reports with patient Her surgeons believe that we can proceed as required Patient reports continued difficulty with healing and bowel function after surgery Discussed to outcome of our CLUB LICENSEE/VERENICE portion of the surgery: 1 tube excised. I tube disconnected. Severe pelvic adhesions. Discussed preparation and transition to IVF planning once bowel function and incision healing improved and stable *Discussed 34 year old male partner without proven fertility SA: Normal Notations from previous visit: Post-op visit: 34 year old female PMHx: Uterus didelphys; imperforate anus PSHx: Rectovaginal fistula repair; Resection vaginal septum; Bilateral ureteral re-implantation; Bowel resection; Umbilical stoma (MACE); release of tethered spinal cord Desire for future fertility Reviewed operative reports with patient Her surgeons believe that we can proceed as required *Patient reports continued difficulty with healing and bowel function after surgery *Discussed to outcome of our CLUB LICENSEE/VERENICE portion of the surgery: 1 tube excised. I tube disconnected. Severe pelvic adhesions. *Discussed preparation and transition to IVF planning once bowel function and incision healing improved and stable 34 year old male partner without proven fertility SA: Not completed to date Notations from previous visit: 34 year old female PMHx: Uterus didelphys; imperforate anus PSHx: Rectovaginal fistula repair; Resection vaginal septum; Bilateral ureteral re-implantation; Bowel resection; Umbilical stoma (MACE); release of tethered spinal cord Desire for future fertility Reviewed operative reports with patient Her surgeons believe that we can proceed as required 33 year old male partner without proven fertility SA: Not completed to date Notations from previous visit: 34 year old female presents to discuss, PMHx: Uterus didelphys; imperforate anus. PSHx: Rectovaginal fistula repair; Resection vaginal septum; Bilateral ureteral re-implantation; Bowel resection; Umbilical stoma (ALEX); release of tethered spinal cord. Desire for future fertility. 33 year old male partner without proven fertility. SA: Not completed to date. Obstetric History T0 L0 SAB0 IAB0 Ectopic0 Multiple0 Live Births0 Fertility Evaluations and Treatments: Eval Checklist Results Date Comments HSG Abnormal Hysteroscopy Not done Laparoscopy Abnormal severe adhesions OPK (Ovulation Predictor Kit) Normal Ovarian [place] Not done Saline Ultrasound Not done Semen Analysis Not done Ultrasound Abnormal Other (See comments) Not done MENSTRUAL HISTORY: Menarche Age: 14 Length of Cycle: 33 Irregular Days: 5-7 Menstrual Flow: Moderate Menstrual Symptoms: Pain,Cramping,Bloating, Mood Changes,Breast Tenderness Patient's last menstrual period was 12/13/2021. PAST MEDICAL HISTORY Diagnosis Date History of tethered spinal cord at , surgical correction at age 14 Imperforate anus Kidney stone Uterus didelphys PAST SURGICAL HISTORY Procedure Laterality Date BOWEL RESECTION (more content not included)... Normal [facility] ESTRADIOL-17B [facility] 05-01-20 22 E2 [Mass/Vol] 34 pg/mL [facility] FOLLICULAR US [facility] 05-01-20 22 [facility] ESTRADIOL-17B [facility] 04-24-20 22 E2 [Mass/Vol] 60 pg/mL [facility] FOLLICULAR US Ion 04-24-20 [facility] Hematocrit Auto (Bld) [Volum e fraction]on 04-24-2022 Hematocrit (Bld) [Volume fraction] 39.9 % 36.0 - 46.0 % [facility] ESTRADIOL-17B [facility] 02-25-20 22 E2 [Mass/Vol] 1451 pg/mL [facility] PROGESTERONE Don Progesterone [Mass/Vol] 0.7 ng/mL See comment ng/mL [facility] ESTRADIOL-17B Don 02-23-20 22 E2 [Mass/Vol] 182 pg/mL [facility] FOLLICULAR US WHIon 02-23-20 22 [facility] PROGESTERONE [facility] 2 Progesterone [Mass/Vol] 0.6 ng/mL See comment ng/mL [facility] ESTRADIOL-17B [facility] 01-27-20 22 E2 [Mass/Vol] 107 pg/mL [facility] PROGESTERONE [facility] 2 Progesterone [Mass/Vol] 3.1 ng/mL High See comment ng/mL [facility] HCG QUAL UR B/Oon 12-21-2021 status Negative neg - pos [facility] Quality Check Yes [facility] Laboratory - Chemistry and C hemistry - challengeon 10-09-2021 HCG.beta subunit Qn 171.5 m[IU]/mL High <5.0 mIU/mL [facility] Lutropin Qn m[IU]/mL See comment mIU/mL [facility] Progesterone [Mass/Vol] 1.6 ng/mL See comment ng/mL [facility] ESTRADIOL-17B [facility] 10-07-19 22 E2 [Mass/Vol] 497 pg/mL [facility] Laboratory - Chemistry and C hemistry - challengeon 10-06-2021 Progesterone [Mass/Vol] 0.6 ng/mL See comment ng/mL [facility] ESTRADIOL-17B [facility] 10-06-19 22 E2 [Mass/Vol] 398 pg/mL [facility] PROGESTERONE [facility] 2 Progesterone [Mass/Vol] 0.5 ng/mL See comment ng/mL [facility] ESTRADIOL-17B [facility] 10-03-19 22 E2 [Mass/Vol] 192 pg/mL [facility] ESTRADIOL-17B [facility] 09-27-19 22 E2 [Mass/Vol] 73 pg/mL [facility] CT UROGRAM WO/W IVCONon 04-3 CT UROGRAM WO/W IVCON * * *Final Report* * * DATE OF EXAM: Oct 16 2019 10:07AM [facility] 0560 - CT UROGRAM WO/W IVCON / PROCEDURE REASON: multiple diagnoses * * * * Physician Interpretation * * * * EXAMINATION: CT ABDOMEN AND PELVIS WITHOUT AND WITH IV CONTRAST, INCLUDING EXCRETORY PHASE IMAGING (CT UROGRAM) 3D RECONSTRUCTIONS CLINICAL HISTORY: 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 The patient has uterine didelphys. TECHNIQUE: CT urogram protocol including unenhanced, renal parenchymal phase and excretory phase renal imaging was obtained following IV contrast. Normal saline was also administered IV. No oral contrast was given. 3D image post-processing was performed and archived at the request of the referring physician, on the CT scanner workstation without concurrent physician supervision. MQ: CTU_2 Contrast: IV: 150 ml of Omnipaque 300 Oral Contrast: None CT Radiation dose: Integrated dose-length product (DLP) for this visit = 1092 mGy*cm. CT Dose Reduction Employed: Automated exposure control(AEC) and iterative recon COMPARISON: None. RESULT: Kidneys and urinary tract: Right: Partially malrotated right kidney with hilum directed more anteriorly than is typically identified. Right kidney is normal in size. There is a 6 mm stone in the lower pole. The opacified calices, renal pelvis and ureter are normal without dilation, filling defect, or stricture. 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 Left: The left kidney is normal in size. There is a 2 mm radiopaque stone in the midpole. The opacified calices, renal pelvis and ureter are normal without dilation, filling defect, or stricture. No duplicated left ureter. Unfortunately, the single left ureter can only be traced down to the pelvic inlet. Its distalmost course is not seen on this exam since this portion of the ureter did not fill with contrast. Bladder: No filling defect, calculus, focal or diffuse wall thickening. Abdomen and Pelvis: Liver: Unremarkable. Biliary: Unremarkable. Spleen: No mass. No splenomegaly. Pancreas: No mass or duct dilation. Adrenals: No mass. GI tract: No dilation or wall thickening. Surgical suture lines noted involving loops of small bowel in the lower abdomen. Lymph nodes: No abdominal or pelvic lymphadenopathy. Mesentery/Peritoneum: No ascites or mass. Retroperitoneum: No mass. Vasculature: The celiac axis and SMA are patent. The portal vein and branches, splenic vein, SMV, and hepatic veins are patent. Pelvis: Deformity of the uterus consistent with patient's history of uterine didelphys. It is not as clearly demonstrated on this exam. Right ovary contains several fluid density structures most likely representing follicles. Left ovary not as clearly demonstrated. 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 Lower thorax: No significant additional findings. IMPRESSION: The left ureter does not appear duplicated. Unfortunately the distalmost portion of the left ureter within the pelvis is not visualized on this exam. Bilateral nonobstructing renal stones. Deformity of the uterus presumably due to patient's uterine didelphys not clearly delineated on this study. 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 Wafer Production Worker: NATACHA Transcribe Date/Time: Oct 16 2019 10:10A Dictated by : MULUGETA SHEPARD MD This examination was interpreted and the report reviewed and electronically signed by: MULUGETA SHEPARD MD on Oct 16 2019 10:22AM EST Normal [facility] Vital Signs Date Time Vital Sign Value Performing Clinician Facility 11-26-2024 14:39-0400 Body height 162.[address] Imani Helm DO Work Phone: [facility] 11-26-2024 14:39-0400 Body mass index (BMI) [Ratio] 29.5 kg/m2 Dr. Imani Helm DO Work Phone: [facility] 11-26-2024 14:39-0400 Body weight 78.[address] Imani Helm DO Work Phone: [facility] 11-26-2024 14:39-0400 Diastolic blood pressure 73 mm[Hg] Dr. Imani Helm DO Work Phone: [facility] 11-26-2024 14:39-0400 Systolic blood pressure 109 mm[Hg] Dr. Imani Helm DO Work Phone: [facility] 11-18-2024 14:11-0400 Body height 162.[address] Imani Helm DO Work Phone: [facility] 11-18-2024 14:11-0400 Body mass index (BMI) [Ratio] 29.3 kg/m2 Dr. Imani Helm DO Work Phone: [facility] 11-18-2024 14:11-0400 Body weight 77.[address] Imani Helm DO Work Phone: [facility] 11-18-2024 14:11-0400 Diastolic blood pressure 75 mm[Hg] Dr. Imani Helm DO Work Phone: [facility] 11-18-2024 14:11-0400 Systolic blood pressure 126 mm[Hg] Dr. Imani Helm DO Work Phone: [facility] 11-13-2024 08:10-0400 Body height 162.[address] Imani Helm DO Work Phone: [facility] 11-13-2024 08:10-0400 Body mass index (BMI) [Ratio] 28.7 kg/m2 Dr. Imani Helm DO Work Phone: [facility] 11-13-2024 08:10-0400 Body weight 75.[address] Imani Helm DO Work Phone: [facility] 11-13-2024 08:10-0400 Diastolic blood pressure 64 mm[Hg] Dr. Imani Helm DO Work Phone: [facility] 11-13-2024 08:10-0400 Systolic blood pressure 109 mm[Hg] Dr. Imani Helm DO Work Phone: [facility] 11-06-2024 14:14-0400 Body height 162.[address] Imani Helm DO Work Phone: [facility] 11-06-2024 14:08-0400 Body mass index (BMI) [Ratio] 29.5 kg/m2 Dr. Imani Helm DO Work Phone: [facility] 11-06-2024 14:08-0400 Body weight 78.[address] Imani Helm DO Work Phone: [facility] 11-06-2024 14:08-0400 Diastolic blood pressure 70 mm[Hg] Dr. Imani Helm DO Work Phone: [facility] 11-06-2024 14:08-0400 Systolic blood pressure 102 mm[Hg] Dr. Imani Helm DO Work Phone: [facility] 10-30-2024 09:10-0400 Body height 162.[address] Imani Helm DO Work Phone: [facility] 10-30-2024 09:05-0400 Body mass index (BMI) [Ratio] 28.3 kg/m2 Dr. Imani Helm DO Work Phone: [facility] 10-30-2024 09:05-0400 Body weight 74.[address] Imani Helm DO Work Phone: [facility] 10-30-2024 09:05-0400 Diastolic blood pressure 70 mm[Hg] Dr. Imani Helm DO Work Phone: [facility] 10-30-2024 09:05-0400 Systolic blood pressure 116 mm[Hg] Dr. Imani Helm DO Work Phone: [facility] 10-24-2024 11:42-0400 Body height 162.[address] Imani Helm DO Work Phone: [facility] 10-24-2024 11:39-0400 Body mass index (BMI) [Ratio] 28.5 kg/m2 Dr. Imani Helm DO Work Phone: [facility] 10-24-2024 11:39-0400 Body weight 75.[address] Imani Helm DO Work Phone: [facility] 10-24-2024 11:39-0400 Diastolic blood pressure 65 mm[Hg] Dr. Imani Helm DO Work Phone: [facility] 10-24-2024 11:39-0400 Systolic blood pressure 111 mm[Hg] Dr. Imani Helm DO Work Phone: [facility] 10-14-2024 10:25-0400 Body mass index (BMI) [Ratio] 28 kg/m2 Dr. Imani Helm DO Work Phone: [facility] 10-14-2024 10:25-0400 Body weight 74.[address] Imani Helm DO Work Phone: [facility] 10-14-2024 10:25-0400 Diastolic blood pressure 71 mm[Hg] Dr. Imani Helm DO Work Phone: [facility] 10-14-2024 10:25-0400 Systolic blood pressure 106 mm[Hg] Dr. Imani Helm DO Work Phone: [facility] 10-09-2024 09:43-0400 Body height 162.6 cm Manuel Gasior DO Work Phone: [facility] 10-09-2024 09:43-0400 Body mass index (BMI) [Ratio] 28.23 kg/m2 Manuel Gasior DO Work Phone: [facility] 10-09-2024 09:43-0400 Body weight 74.6 kg Manuel Gasior DO Work Phone: [facility] Comment on above: with shoes 10-09-2024 09:43-0400 Diastolic blood pressure 54 mm[Hg] Manuel Gasior DO Work Phone: [facility] 10-09-2024 09:43-0400 Heart rate 81 /min Manuel Gasior DO Work Phone: [facility] 10-09-2024 09:43-0400 Systolic blood pressure 113 mm[Hg] Manuel Gasior DO Work Phone: [facility] 04-10-2024 09:40-0400 Body height 165.9 cm Andres Fitzgerald APN Work Phone: [facility] 04-10-2024 09:40-0400 Body mass index (BMI) [Ratio] 27.4 kg/m2 Andres Fitzgerald APN Work Phone: [facility] 04-10-2024 09:40-0400 Body weight 75.4 kg Andres Fitzgerald CLOTH EXAMINER MACHINE Work Phone: [facility] 04-10-2024 09:40-0400 Diastolic blood pressure 68 mm[Hg] Andres Fitzgerald CLOTH EXAMINER MACHINE Work Phone: [facility] 04-10-2024 09:40-0400 Heart rate 71 /min Andres Fitzgerald CLOTH EXAMINER MACHINE Work Phone: [facility] 04-10-2024 09:40-0400 Systolic blood pressure 112 mm[Hg] Andres Fitzgerald CLOTH EXAMINER MACHINE Work Phone: [facility] 11-15-2022 08:19-0400 Body height 162.6 cm Nurse Beac Work Phone: [facility] 11-15-2022 08:19-0400 Body weight 74.2 kg Nurse Beac Work Phone: [facility] 11-15-2022 08:19-0400 Diastolic blood pressure 58 mm[Hg] Nurse Beac Work Phone: [facility] 11-15-2022 08:19-0400 Heart rate 77 /min Nurse Beac Work Phone: [facility] 11-15-2022 08:19-0400 SaO2% (BldA) [Mass fraction] 99 % Nurse Beac Work Phone: [facility] 11-15-2022 08:19-0400 Systolic blood pressure 115 mm[Hg] Nurse Beac Work Phone: [facility] 08-29-2022 07:15-0400 Body height 162.6 cm Nurse Beac Work Phone: [facility] 08-29-2022 07:15-0400 Body weight 74.3 kg Nurse Beac Work Phone: [facility] 08-29-2022 07:15-0400 Diastolic blood pressure 60 mm[Hg] Nurse Beac Work Phone: [facility] 08-29-2022 07:15-0400 Heart rate 78 /min Nurse Beac Work Phone: [facility] 08-29-2022 07:15-0400 SaO2% (BldA) [Mass fraction] 98 % Nurse Beac Work Phone: [facility] 08-29-2022 07:15-0400 Systolic blood pressure 105 mm[Hg] Nurse Beac Work Phone: [facility] 07-06-2022 07:21-0500 Body height 162.6 cm Nurse Beac Work Phone: [facility] 07-06-2022 07:21-0500 Body weight 73.8 kg Nurse Beac Work Phone: [facility] 07-06-2022 07:21-0500 Diastolic blood pressure 61 mm[Hg] Nurse Beac Work Phone: [facility] 07-06-2022 07:21-0500 Heart rate 102 /min Nurse Beac Work Phone: [facility] 07-06-2022 07:21-0500 SaO2% (BldA) [Mass fraction] 98 % Nurse Beac Work Phone: [facility] 07-06-2022 07:21-0500 Systolic blood pressure 97 mm[Hg] Nurse Beac Work Phone: [facility] 04-24-2022 07:41-0500 Body height 162.6 cm Nurse Beac Work Phone: [facility] 04-24-2022 07:41-0500 Body temperature 98.1 [degF] Nurse Beac Work Phone: [facility] 04-24-2022 07:41-0500 Body weight 71.22 kg Nurse Beac Work Phone: [facility] 04-24-2022 07:41-0500 Diastolic blood pressure 60 mm[Hg] Nurse Beac Work Phone: [facility] 04-24-2022 07:41-0500 Heart rate 80 /min Nurse Beac Work Phone: [facility] 04-24-2022 07:41-0500 SaO2% (BldA) [Mass fraction] 98 % Nurse Beac Work Phone: [facility] 04-24-2022 07:41-0500 Systolic blood pressure 98 mm[Hg] Nurse Beac Work Phone: [facility] 12-21-2021 11:23-0400 Body height 162.6 cm Wil Luke MD Work Phone: [facility] 12-21-2021 11:23-0400 Body weight 69.85 kg Wil Luke MD Work Phone: [facility] Encounters Encounter Date Encounter Type Care Provider Facility Start: 11-26-2024 End: 11-26-[address] Iman Jolley DO -[facility] Work Phone: Start: 11-26-2024 End: 11-26-[address] Imani Helm DO Work Phone: [facility] Work Phone: Start: 11-21-2024 End: 11-21-2024 ambulatory IMANI HELM [facility] Start: 11-18-2024 End: 11-18-2024 Patient encounter procedure Jesse KING -[facility] Work Phone: Start: 11-18-2024 End: 11-18-[address] Imani Helm DO Work Phone: [facility] Work Phone: Start: 11-18-2024 End: 11-18-2024 ambulatory Imani Helm Facility:[facility] Start: 11-13-2024 End: 11-13-[address] Kaial Henderson MD -[facility] Work Phone: Start: 11-13-2024 End: 11-13-[address] Imani Helm DO Work Phone: [facility] Work Phone: Start: 11-06-2024 End: 11-06-[address] Kiala Henderson MD -[facility] Work Phone: Start: 11-06-2024 End: 11-06-[address] Imani Helm DO Work Phone: [facility] Work Phone: Start: 11-06-2024 End: 11-06-2024 ambulatory Kaila Henderson Facility:[facility] Start: 10-30-2024 End: 10-30-[address] Kiala Henderson MD -[facility] Work Phone: Start: 10-30-2024 End: 10-30-[address] Imani Helm DO Work Phone: [facility] Work Phone: Start: 10-30-2024 End: 10-30-2024 ambulatory Kaila Henderson Facility:[facility] Start: 10-24-2024 End: 10-24-[address] Imani Helm DO Work Phone: [facility] Work Phone: Start: 10-24-2024 End: 10-24-[address] Kaila Henderson MD -[facility] Work Phone: Start: 10-24-2024 End: 10-24-[address] Iman Jolley DO -[facility] Work Phone: Start: 10-24-2024 End: 10-24-2024 ambulatory Imani Helm Facility:[facility] Start: 10-24-2024 End: 10-24-2024 ambulatory Kaila Henderson Facility:[facility] Start: 10-14-2024 End: 10-14-[address] Kaila Henderson MD -[facility] Work Phone: Start: 10-14-2024 End: 10-14-2024 ambulatory Imani Helm Facility:[facility] Start: 10-09-2024 End: 10-09-2024 Initial nursing facility care/day 35 minutes Manuel Sorto DO Work Phone: [facility] Comment on above: Anorectal Malformati on Start: 10-09-2024 End: 10-09-2024 ambulatory MANUEL SORTO [facility] Start: 10-09-2024 End: 10-09-2024 Subsequent hospital visit by physician [facility] Comment on above: Anorectal malformati on; Other constipation; History of antegrade continence enema procedure Anorectal malformati on Start: 04-13-2024 Orders Only Lazara Brice RN [facility] Comment on above: DME Prescription Start: 04-10-2024 End: 04-10-2024 Subsequent hospital visit by physician [facility] Comment on above: Anorectal malformati on Start: 04-10-2024 End: 04-10-2024 ambulatory CHAITANYA HOLM [facility] Start: 04-10-2024 End: 04-10-2024 Office outpatient visit 25 minutes Andres Fitzgerald APN Work Phone: [facility] Comment on above: Anorectal Malformati on Start: 04-10-2024 End: 04-10-2024 ambulatory CHAITANYA LUDIN [facility] Start: 04-10-2024 End: 04-10-2024 Subsequent hospital visit by physician Vianey Santillan [facility] Comment on above: Anorectal malformati on Start: 04-09-2024 Telephone encounter Marixa Hernandez Work Phone: [facility] Comment on above: Insurance Issue Start: 04-08-2024 Orders Only Chaitanya Ludin reilly CLOTH EXAMINER MACHINE Work Phone: [facility] Comment on above: General Inquiry Start: 10-31-2023 Encounter for other preprocedural examination EDINSON NEVES [place] [facility]~[id number] [facility] Start: 10-31-2023 End: 10-31-2023 ambulatory ISRRAEL ADLER MD~[id number] [facility] Start: 10-30-2023 End: 10-31-2023 ambulatory [facility]SON NEVES [facility]~[id number] [facility] Start: 02-07-2023 ambulatory Mackenzie Duran MD Work Phone: [facility] Comment on above: VERENICE Patient Care Con ference Start: 02-07-2023 Telephone encounter Mackenzie Duran MD Work Phone: [facility] Comment on above: Opened in Error Start: 01-22-2023 End: 01-22-2023 ambulatory [facility] Facility:[facility] Start: 01-22-2023 End: 01-22-2023 Nursing evaluation of patient and report Nurse Verenice [facility] Work Phone: [facility] Comment on above: Encounter for fertil ity testing Start: 01-15-2023 End: 01-15-2023 amb[facility] Facility[facility] Start: 01-15-2023 End: 01-15-2023 Nursing evaluation of patient and report Nurse Verenice [facility] Work Phone: [facility] Comment on above: Encounter for fertil ity testing Start: 01-12-2023 Telephone encounter Sroen Sebastian MD Work Phone: [facility] Comment on above: cd 1 Start: 12-14-2022 Telephone encounter Soren Sebastian MD Work Phone: [facility] Comment on above: switching pharamacy Start: 12-12-2022 Telephone encounter Soren Sebastian MD Work Phone: [facility] Comment on above: Patient Question Start: 11-23-2022 End: 11-23-2022 ambulatory STUART GUERRERO Facility:[facility] Start: 11-23-2022 End: 11-23-2022 Nursing evaluation of patient and report Nurse Verenice [facility] Work Phone: [facility] Comment on above: Encounter for fertil ity testing Start: 11-22-2022 End: 11-22-2022 ambulatory IMANI HELM Facility:[facility] Start: 11-22-2022 End: 11-22-2022 Nursing evaluation of patient and report Nurse Ve[facility]ice [facility] Work Phone: [facility] Comment on above: Female infertility ( Primary Dx); Encounter for fertility testing Start: 11-21-2022 Telephone encounter Soren Sebastian MD Work Phone: [facility] Comment on above: Freda re appt tomorr ow Start: 11-16-2022 End: 11-16-2022 ambulatory Nurse Verenice [facility] Work Phone: [facility] Comment on above: Female infertility ( Primary Dx) Start: 11-16-2022 End: 11-16-2022 Telemedicine consultation with patient Nurse Verenice [facility] Work Phone: [facility] Start: 11-15-2022 End: 11-15-2022 Nursing evaluation of patient and report Nurse Verenice [facility] Work Phone: [facility] Comment on above: Female infertility ( Primary Dx); Encounter for fertility testing Start: 10-31-2022 Telephone encounter Soren Sebastian MD Work Phone: [facility] Comment on above: Patient Update Start: 10-17-2022 Telephone encounter Soren Sebastian MD Work Phone: [facility] Comment on above: pt states meds are o n back order Start: 09-07-2022 End: 09-07-2022 Nursing evaluation of patient and report Nurse Verenice [facility] Work Phone: [facility] Comment on above: Female infertility Start: 09-04-2022 End: 09-04-2022 Nursing evaluation of patient and report Nurse Verenice [facility] Work Phone: [facility] Comment on above: Female infertility Start: 08-29-2022 End: 08-29-2022 Nursing evaluation of patient and report Nurse Verenice [facility] Work Phone: [facility] Comment on above: Female infertility Start: 08-28-2022 Telephone encounter Soren Sebastian MD Work Phone: [facility] Comment on above: re medication/was it called in ; SEt up baseline for tomorrow at [place] (prefers between 7 and 8 am) Start: 08-25-2022 Telephone encounter Soren Sebastian MD Work Phone: [facility] Comment on above: Next Steps Start: 08-22-2022 Telephone encounter Soren Sebastian MD Work Phone: [facility] Comment on above: order injections Start: 08-17-2022 End: 08-17-2022 Patient encounter procedure [facility] Work Phone: [facility] Comment on above: Female infertility ( Primary Dx) Start: 08-17-2022 Telephone encounter [facility] Comment on above: Patient Update Start: 08-15-2022 Telephone encounter Sasha Stoddard [facility] Comment on above: Patient Update Start: 08-13-2022 ambulatory Danelle Wheat PhD Work Phone: [facility] Comment on above: update Start: 08-13-2022 E-mail encounter fro m caregiver Danelle Wheat PhD Work Phone: [facility] Start: 08-12-2022 ambulatory Danelle Wheat PhD Work Phone: [facility] Comment on above: fertilization result s Start: 08-12-2022 E-mail encounter fro m caregiver Danelle Wheat PhD Work Phone: [facility] Start: 08-11-2022 End: 08-11-2022 Patient encounter procedure Wil Luke MD Work Phone: [facility] Comment on above: Female infertility ( Primary Dx) Start: 08-11-2022 End: 08-11-2022 Nursing evaluation of patient and report Nurse Ve[facility]ice [facility] Work Phone: [facility] Comment on above: Female infertility Start: 08-10-2022 End: 08-10-2022 Nursing evaluation of patient and report Nurse Verenice [facility] Work Phone: [facility] Comment on above: Female infertility Start: 08-09-2022 ambulatory Ysabel bonilla MD Work Phone: [facility] Comment on above: hcg trigger instruct ions Start: 08-09-2022 E-mail encounter fro m caregiver Ysabel Scott MD Work Phone: [facility] Start: 08-09-2022 End: 08-09-2022 Nursing evaluation of patient and report Nurse Verenice [facility] Work Phone: [facility] Comment on above: Female infertility Start: 08-08-2022 End: 08-08-2022 Nursing evaluation of patient and report Nurse Verenice [facility] Work Phone: [facility] Comment on above: Female infertility Start: 08-07-2022 End: 08-07-2022 Orders Only Aiyana Harman APRN.[employer] PL[employer]NER Work Phone: [facility] Comment on above: Female infertility ( Primary Dx) Female infertility Start: 08-03-2022 Telephone encounter Soren Sebastian MD Work Phone: [facility] Comment on above: monitoring Start: 08-03-2022 End: 08-03-2022 Nursing evaluation of patient and report Nurse Verenice [facility] Work Phone: [facility] Comment on above: Female infertility Start: 08-02-2022 End: 08-02-2022 Nursing evaluation of patient and report Nurse Verenice [facility] Work Phone: [facility] Comment on above: Female infertility Start: 07-25-2022 End: 07-25-2022 Nursing evaluation of patient and report Nurse Verenice [facility] Work Phone: [facility] Comment on above: Female infertility Start: 07-24-2022 Telephone encounter Soren Sebastian MD Work Phone: [facility] Comment on above: Patient Update Start: 07-06-2022 End: 07-06-2022 Nursing evaluation of patient and report Nurse Ve[facility]ice [facility] Work Phone: [facility] Comment on above: Encounter for fertil ity testing; Female infertility Start: 06-14-2022 Telephone encounter Soren Sebastian MD Work Phone: [facility] Comment on above: Did we get her FMLA paperwork; Freda/ been bleeding for 13 days consistently light (Just an FYI started Wellbutrin 2 weeks ago, can that affect her cycle?) Returning Patient's Call Start: 06-05-2022 Telephone encounter Soren Sebastian MD Work Phone: [facility] Comment on above: Requires IVF Prior A uthorization Start: 06-05-2022 End: 06-05-2022 ambulatory SOREN SEBASTIAN Facility:[facility] Start: 06-05-2022 End: 06-05-2022 Manual pelvic examination Soren Sebastian MD Work Phone: [facility] Comment on above: Diminished ovarian r eserve due to low antral follicle (Primary Dx); Encounter for fertility planning; Female pelvic peritoneal adhesions Start: 06-05-2022 End: 06-05-2022 Telemedicine consultation with patient Soren Sebastian MD Work Phone: [facility] Start: 05-08-2022 Telephone encounter Soren Sebastian MD Work Phone: [facility] Comment on above: Patient Question Start: 05-02-2022 Telephone encounter Soren Sebastian MD Work Phone: [facility] Comment on above: Freda; Freda bleedin g a lot this am/stopped inj Start: 05-01-2022 End: 05-01-2022 Nursing evaluation of patient and report Nurse Verenice [facility] Work Phone: [facility] Comment on above: Female infertility ( Primary Dx); Encounter for fertility testing Start: 04-24-2022 End: 04-24-2022 Nursing evaluation of patient and report Nurse Verenice [facility] Work Phone: [facility] Comment on above: Female infertility ( Primary Dx); Encounter for fertility testing Start: 04-21-2022 Telephone encounter Soren Sebastian MD Work Phone: [facility] Comment on above: Freda A / Lmp today please call pt; Called Back (Started period today, baselinesunday?) Start: 04-11-2022 Telephone encounter Soren Sebastian MD Work Phone: [facility] Comment on above: Patient Update Start: 04-10-2022 Telephone encounter Sroen Sebastian MD Work Phone: [facility] Comment on above: ques on meds Start: 03-14-2022 Telephone encounter Soren Sebastian MD Work Phone: [facility] Comment on above: Freda/forgot estroge n this morning Start: 03-02-2022 End: 03-10-2022 Patient encounter procedure [facility] Work Phone: [facility] Comment on above: Primary female infer tility (Primary Dx) examinatio n or test, unconfirmed (Primary Dx); Infertility, female Start: 02-24-2022 End: 02-24-2022 Nursing evaluation of patient and report Nurse Verenice [facility] Work Phone: [facility] Comment on above: Female infertility ( Primary Dx) Start: 02-22-2022 End: 02-22-2022 Nursing evaluation of patient and report Nurse Verenice [facility] Work Phone: [facility] Comment on above: Female infertility ( Primary Dx) Start: 02-13-2022 Telephone encounter Soren Sebastian MD Work Phone: [facility] Comment on above: Cycle start 02/10 Start: 02-10-2022 Telephone encounter Soren Sebastian MD Work Phone: [facility] Comment on above: Returning Patient's Call Start: 01-26-2022 Telephone encounter Soren Sebastian MD Work Phone: [facility] Comment on above: FET thaw plan; chin d back about thaw plan Start: 01-26-2022 End: 01-26-2022 Nursing evaluation of patient and report Nurse Ve[facility]ice [facility] Work Phone: [facility] Comment on above: Primary female infer tility Start: 12-26-2021 Telephone encounter Soren Sebastian MD Work Phone: [facility] Comment on above: FET med orders Start: 12-21-2021 End: 12-21-2021 Patient encounter procedure Wil Luke MD Work Phone: [facility] Comment on above: Fertility testing (P rimary Dx); Pre-procedural laboratory examination Start: 12-21-2021 End: 12-21-2021 Patient encounter status Wil Luke MD Work Phone: [facility] Start: 12-20-2021 Telephone encounter Soren Sebastian MD Work Phone: [facility] Comment on above: Rose Marie re sis/hystero scopy tomorrow Start: 11-30-2021 Telephone encounter Soren Sebastian MD Work Phone: [facility] Comment on above: freda Start: 10-16-2021 End: 10-16-2021 Patient encounter procedure [facility] Coordinator Work Phone: [facility] Comment on above: Female infertility ( Primary Dx) Start: 10-10-2021 End: 10-10-2021 Patient encounter procedure Kieran Palafox MD Work Phone: [facility] Comment on above: Female infertility ( Primary Dx) Start: 10-09-2021 End: 10-09-2021 Nursing evaluation of patient and report Nurse Ve[facility]ice [facility] Work Phone: [facility] Comment on above: Encounter for fertil ity testing Start: 10-08-2021 End: 10-08-2021 Nursing evaluation of patient and report Nurse Verenice [facility] Work Phone: [facility] Comment on above: Encounter for fertil ity testing (Primary Dx) Start: 10-07-2021 Orders Only Aiyana A Yozipo vich NURSE PRACTITIONER.CITY [employer]NER Work Phone: [facility] Comment on above: Female infertility ( Primary Dx) [place] - needs meds f or tonight and this wknd Start: 10-06-2021 End: 10-06-2021 Orders Only Aiyana A Yozipovich NURSE PRACTITIONER.CITY PL[employer]NER Work Phone: [facility] Comment on above: Female infertility ( Primary Dx) Female infertility Start: 10-05-2021 End: 10-05-2021 Nursing evaluation of patient and report Nurse Ve[facility]ice [facility] Work Phone: [facility] Comment on above: Female infertility Start: 10-02-2021 End: 10-02-2021 Nursing evaluation of patient and report Nurse Verenice [facility] Work Phone: [facility] Comment on above: Female infertility Start: 09-28-2021 End: 09-28-2021 Nursing evaluation of patient and report Nurse Verenice [facility] Work Phone: Reproductive Endocrinology Infertility Comment on above: Female infertility ( Primary Dx) Start: 09-26-2021 End: 09-26-2021 Nursing evaluation of patient and report Nurse Verenice [facility] Work Phone: Reproductive Endocrinology Infertility Comment on above: Female infertility ( Primary Dx) Start: 09-22-2021 Orders Only Aiyana A Yozipo vich NURSE PRACTITIONER.[employer]ITY [employer] Work Phone: Reproductive Endocrinology Infertility Comment on above: Female infertility ( Primary Dx) Xochitl/re self pay u s and nurse visit Start: 12-22-2020 End: 03-16-2021 ambulatory [facility] Start: 12-01-2020 ambulatory Facility:[facility] Procedures Date Procedure Procedure Detail Performing Clinician Start: 11-18-2024 Transvaginal obstetr ic ultrasonography Dr. Imani Helm DO Work Phone: Start: 11-18-[address] Imani Helm DO Work Phone: Start: 11-06-[address] Imani Helm DO Work Phone: Start: 10-30-2024 Hepatitis C antibody measurement Dr. Imani Helm DO Work Phone: Comment on above: Reactive: Presumptiv e evidence of antibodies to HCV. Follow CDC recommendations for supplemental testing.Non-Reactive: Antibodies to HCV were not detected; does not exclude the possibility of exposure to HCVReactive Results are presumptive evidence of antibodies to HCV. Follow CDC recommendations for supplemental testing.Order confirmation testing: HCV Quant by PCR testing - HCVPCR lc#[id number] Non Reactive: < 0.8 Equivocal: >/= 0.8 to < 1.0 Reactive: >/= 1.0The CDC requires that a reactive/equivocal HCV antibody result be sent out for confirmation. HCV Quant by PCR testing. Start: 10-30-[address] Imani Helm DO Work Phone: Comment on above: Antibody Result: Int erpretationNon-Reactive: Non- ImmuneReactive: ImmuneThe following results were obtained with the [employer] Rubella IgG assay. Results from assays of other manufacturers cannot be used interchangeably. Start: 10-30-2024 Serologic test for syphilis Dr. Imani Helm DO Work Phone: Start: 10-24-[address] Imani Helm DO Work Phone: Start: 10-09-2024 Us retroperitoneal r eal time w/image complete Jesse Cassiusshirakandis CPNP Work Phone: Start: 10-09-2024 Replace gastrostomy/cecostomy tube percutaneous Andres Fitzgerald [employer]OTH EXAMINER MACHINE Work Phone: Start: 04-10-2024 Replace gastrostomy/cecostomy tube percutaneous Chaitanya Akins CLOTH EXAMINER MACHINE Work Phone: Start: 04-10-2024 Radiologic exam abdo men 1 view Chaitanya Akins CLOTH EXAMINER MACHINE Work Phone: Start: 01-22-2023 Assay of progesterone V alerie Dudziak NURSE PRACTITIONER.[employer] Work Phone: Start: 11-23-2022 Assay of estradiol Elizabeth dawit Dudziak NURSE PRACTITIONER.[employer] Work Phone: Start: 11-22-2022 Us pelvic nonobstetr ic image dcmtn limited/f/u Stuatr Dudziak NURSE PRACTITIONER.[employer] Work Phone: Start: 11-22-2022 Assay of estradiol Dallas dawit Dudziak NURSE PRACTITIONER.[employer] Work Phone: Start: 11-15-2022 Assay of estradiol Elizabeth dawit Dudziak NURSE PRACTITIONER.[facility] Work Phone: Start: 09-07-2022 Us pelvic nonobstetr ic image dcmtn limited/f/u Marina Mindzora NURSE PRACTITIONER.[facility] Work Phone: Start: 09-07-2022 Assay of estradiol Avery en Mindzora NURSE PRACTITIONER.[facility] Work Phone: Start: 09-04-2022 Us pelvic nonobstetr ic image dcmtn limited/f/u Marina Mindzora NURSE PRACTITIONER.[facility] Work Phone: Start: 09-04-2022 Assay of estradiol Avery en Mindzora NURSE PRACTITIONER.[facility] Work Phone: Start: 08-29-2022 Us pelvic nonobstetr ic image dcmtn limited/f/u Marina Mindzora NURSE PRACTITIONER.[employer] Work Phone: Start: 08-11-2022 Us pelvic nonobstetr ic image dcmtn limited/f/u Shelby Rojas PA-C Work Phone: Start: 08-11-2022 [facility]I ULTRASOUND GUIDE D PROCEDURE Mackenzie Duran MD Work Phone: Start: 08-10-2022 Gonadotropin chorion ic quantitative Ysabel Scott MD Work Phone: Start: 08-09-2022 Us pelvic nonobstetr ic image dcmtn limited/f/u Shelby ABEL-C Work Phone: Start: 08-09-2022 Assay of estradiol Elizabeth dawit Dudziak NURSE PRACTITIONER.[employer] Work Phone: Start: 08-08-2022 Us pelvic nonobstetr ic image dcmtn limited/f/u Shelby Smolen PA-C Work Phone: Start: 08-08-2022 Assay of estradiol Javi Scott MD Work Phone: Start: 08-07-2022 Us pelvic nonobstetr ic image dcmtn limited/f/u Shelby Smolen PA-C Work Phone: Start: 08-07-2022 Assay of estradiol Dallas dawit Dudziak NURSE PRACTITIONER.[employer] Work Phone: Start: 08-03-2022 Us pelvic nonobstetr ic image dcmtn limited/f/u Shelby Smolen PA-C Work Phone: Start: 08-03-2022 Assay of estradiol Panda Duran MD Work Phone: Start: 08-02-2022 Us pelvic nonobstetr ic image dcmtn limited/f/u Stuart Dudziak NURSE PRACTITIONER.[employer] Work Phone: Start: 08-02-2022 Assay of estradiol Chante Cardenas MD Work Phone: Start: 07-25-2022 Us pelvic nonobstetr ic image dcmtn limited/f/u Shelby Smolen PA-C Work Phone: Start: 07-25-2022 Assay of estradiol Elizabeth dawit Dudziak NURSE PRACTITIONER.[employer] Work Phone: Start: 07-06-2022 Us pelvic nonobstetr ic image dcmtn limited/f/u Stuart Dudziak NURSE PRACTITIONER.[employer] Work Phone: Start: 07-06-2022 Assay of estradiol Iryn a Smolen PA-C Work Phone: Start: 05-01-2022 Us pelvic nonobstetr ic image dcmtn limited/f/u Stuart Dudziak NURSE PRACTITIONER.[employer] Work Phone: Start: 05-01-2022 Assay of estradiol Elizabeth dawit Dudziak NURSE PRACTITIONER.[employer] Work Phone: Start: 04-24-2022 Us pelvic nonobstetr ic image dcmtn limited/f/u Stuart Dudziak NURSE PRACTITIONER.[employer] Work Phone: Start: 04-24-2022 Assay of estradiol Dallas dawit Dudziak NURSE PRACTITIONER.[employer] Work Phone: Start: 02-24-2022 Assay of estradiol Elizabeth dawit Dudziak NURSE PRACTITIONER.[facility] Work Phone: Start: 02-22-2022 Us pelvic nonobstetr ic image dcmtn limited/f/u Aiyana A Yozipovich NURSE PRACTITIONER.[employer] Work Phone: Start: 02-22-2022 Assay of estradiol Albino y A Yozipovich NURSE PRACTITIONER.[facility] Work Phone: Start: 01-26-2022 Assay of estradiol Elizabeth dawit Dudziak NURSE PRACTITIONER.[facility] Work Phone: Start: 12-21-2021 Urine test visual color cmprsn chad Luke MD Work Phone: Start: 10-09-2021 Gonadotropin chorion ic quantitative Flo Da Silva MD Work Phone: Start: 10-06-2021 Assay of estradiol Iryn a Smolen PA-C Work Phone: Start: 10-05-2021 Assay of estradiol Iryn a Smolen PA-C Work Phone: Start: 10-02-2021 Assay of estradiol Iryn a Smolen PA-C Work Phone: Start: 09-26-2021 Assay of estradiol Albino y A Yozipovich NURSE PRACTITIONER.[employer] Work Phone: Plan of Treatment Date Care Activity Detail Author Start: 10-08-2026 End: 10-09-2026 US Kidney US Kidney Imaging Routine Anorectal malformation Expected: 10/08/2026 (Approximate), Expires: 10/09/2026 [facility] Work Phone: Comment on above: Expected: 10/08/2026 (Approximate), Expires: 10/09/2026 Start: 10-30-2024 CBC W Auto Differential panel - Blood [facility] Start: 10-30-2024 Hepatitis C antibody measurement [facility] Start: 10-30-2024 Rubella IgG measurement [facility] Start: 10-30-2024 Serologic test for syphilis [facility] Start: 10-30-2024 T4 free measurement [facility] Start: 10-30-2024 Thyroid stimulating hormone measurement [facility] Start: 10-30-2024 [facility] Start: 10-09-2024 End: 04-10-2025 IR Consult IR Consult Imaging Routine Anorectal malformation Other constipation History of antegrade continence enema procedure Expected: 10/09/2024 (Approximate), Expires: 04/10/2025 [facility] Comment on above: Expected: 10/09/2024 (Approximate), Expires: 04/10/2025 Start: 10-09-2024 End: 04-10-2025 XR Abdomen Supine and Upright XR Abdomen - Supine Imaging Routine Anorectal malformation Other constipation History of antegrade continence enema procedure Expected: 10/09/2024 (Approximate), Expires: 04/10/2025 [facility] Work Phone: Comment on above: Expected: 10/09/2024 (Approximate), Expires: 04/10/2025 Start: 10-09-2024 End: 10-09-2024 Patient encounter procedure [facility] [place] Start: 05-09-2024 End: 04-09-2025 XR Abdomen Supine and Upright XR Abdomen - Supine Imaging Routine Anorectal malformation Expected: 05/09/2024 (Approximate), Expires: 04/09/2025 [facility] Work Phone: Comment on above: Expected: 05/09/2024 (Approximate), Expires: 04/09/2025 Start: 04-10-2024 Subsequent hospital visit by physician 04/10/2024 1:30 PM EDT Hospital Encounter Interventional [facility] [address] [place] [address] Discharge Disposition: Home Interventional [facility] Start: 04-10-2024 End: 04-10-2024 Patient encounter procedure [facility] Start: 04-09-2024 End: 04-08-2025 IR Consult IR Consult Imaging Routine Anorectal malformation Expected: 04/09/2024 (Approximate), Expires: 04/08/2025 [facility] Work Phone: Comment on above: Expected: 04/09/2024 (Approximate), Expires: 04/08/2025 Start: 02-17-2024 COVID-19 Vaccine ( season) COVID-19 Vaccine ( season) [facility] Start: 02-17-2024 Influenza vaccination Influenza Vacc ine (#1) [facility] Start: 02-16-2023 Influenza vaccination INFLUENZA (#1) [facility] Start: 08-08-2022 End: 10-08-2022 Estradiol (E2) [Mass/volume] in Serum or Plasma ESTRADIOL-17B BLD Lab STAT Female infertility Expected: 08/08/2022, Expires: 10/08/2022 [facility] Work Phone: Comment on above: Expected: 08/08/2022 , Expires: 10/08/2022 Start: 08-08-2022 End: 10-08-2022 Lutropin [Units/volume] in Serum or Plasma LUTEINIZING HORMONE Lab STAT Female infertility Expected: 08/08/2022, Expires: 10/08/2022 [facility] Work Phone: Comment on above: Expected: 08/08/2022 , Expires: 10/08/2022 Start: 08-08-2022 End: 10-08-2022 Progesterone [Mass/volume] in Serum or Plasma PROGESTERONE BLD Lab STAT Female infertility Expected: 08/08/2022, Expires: 10/08/2022 [facility] Work Phone: Comment on above: Expected: 08/08/2022 , Expires: 10/08/2022 Start: 08-01-2022 End: 10-01-2022 Estradiol (E2) [Mass/volume] in Serum or Plasma ESTRADIOL-17B BLD Lab STAT Female infertility Expected: 08/01/2022 (Approximate), Expires: 10/01/2022 [facility] Work Phone: Comment on above: Expected: 08/01/2022 (Approximate), Expires: 10/01/2022 Start: 07-26-2022 End: 09-25-2022 Lutropin [Units/volume] in Serum or Plasma LUTEINIZING HORMONE Lab STAT Female infertility Expected: 07/26/2022, Expires: 09/25/2022 [facility] Work Phone: Comment on above: Expected: 07/26/2022 , Expires: 09/25/2022 Start: 07-26-2022 End: 09-25-2022 Progesterone [Mass/volume] in Serum or Plasma PROGESTERONE BLD Lab STAT Female infertility Expected: 07/26/2022, Expires: 09/25/2022 [facility] Work Phone: Comment on above: Expected: 07/26/2022 , Expires: 09/25/2022 Start: 07-24-2022 End: 07-24-2023 FOLLICULAR US WHI FOLLICULAR US WHI Anc Imaging Routine Female infertility Expected: 07/24/2022, Expires: 07/24/2023 [facility] Work Phone: Comment on above: Expected: 07/24/2022 , Expires: 07/24/2023 Start: 06-18-2022 DEPRESSION ASSESSMENT DEPRESSION ASS ESSMENT [facility] Start: 05-01-2022 End: 07-01-2022 WHIIVF ANTI MULLERIAN HORMONE WHIIVF ANTI MULLERIAN HORMONE Lab STAT Encounter for fertility testing Expected: 05/01/2022, Expires: 07/01/2022 [facility] Work Phone: Comment on above: Expected: 05/01/2022 , Expires: 07/01/2022 Start: 04-24-2022 End: 06-24-2022 Hematocrit [Volume Fraction] of Blood HEMATOCRIT (HCT) Lab STAT Female infertility Expected: 04/24/2022, Expires: 06/24/2022 [facility] Work Phone: Comment on above: Expected: 04/24/2022 , Expires: 06/24/2022 Start: 03-16-2022 End: 05-16-2022 Choriogonadotropin.bet a subunit [Units/volume] in Serum or Plasma HCG QUANTITATIVE Lab STAT examination or test, unconfirmed Expected: 03/16/2022, Expires: 05/16/2022 [facility] Work Phone: Comment on above: Expected: 03/16/2022 , Expires: 05/16/2022 Start: 02-16-2022 Influenza vaccination C [facility] Start: 12-26-2021 End: 02-25-2022 Estradiol (E2) [Mass/volume] in Serum or Plasma ESTRADIOL-17B BLD Lab STAT Primary female infertility Expected: 12/26/2021, Expires: 02/25/2022 [facility] Work Phone: Comment on above: Expected: 12/26/2021 , Expires: 02/25/2022 Start: 12-26-2021 End: 02-25-2022 Progesterone [Mass/volume] in Serum or Plasma PROGESTERONE BLD Lab STAT Primary female infertility Expected: 12/26/2021, Expires: 02/25/2022 [facility] Work Phone: Comment on above: Expected: 12/26/2021 , Expires: 02/25/2022 Start: 10-09-2021 End: 12-09-2021 PROGESTERONE BLD PROGESTERONE BLD Lab STAT Female infertility Expected: 10/09/2021 (Approximate), Expires: 12/09/2021 [facility] Work Phone: Comment on above: Expected: 10/09/2021 (Approximate), Expires: 12/09/2021 Start: 10-08-2021 End: 12-08-2021 Estradiol (E2) [Mass/volume] in Serum or Plasma ESTRADIOL-17B BLD Lab Routine Encounter for fertility testing Expected: 10/08/2021, Expires: 12/08/2021 [facility] Work Phone: Comment on above: Expected: 10/08/2021 , Expires: 12/08/2021 Start: 10-07-2021 End: 01-06-2022 Estradiol (E2) [Mass/volume] in Serum or Plasma ESTRADIOL-17B BLD Lab STAT Female infertility Expected: 10/07/2021, Expires: 01/06/2022 [facility] Work Phone: Comment on above: Expected: 10/07/2021 , Expires: 01/06/2022 Start: 10-06-2021 End: 12-06-2021 PROGESTERONE BLD PROGESTERONE BLD Lab STAT Female infertility Expected: 10/06/2021, Expires: 12/06/2021 [facility] Work Phone: Comment on above: Expected: 10/06/2021 , Expires: 12/06/2021 Start: 09-22-2021 End: 12-22-2021 Estradiol (E2) [Mass/volume] in Serum or Plasma ESTRADIOL-17B BLD Lab STAT Female infertility Expected: 09/22/2021, Expires: 12/22/2021 [facility] Work Phone: Comment on above: Expected: 09/22/2021 , Expires: 12/22/2021 Start: 06-18-2021 DEPRESSION ASSESSMENT DEPRESSION ASS ESSMENT [facility] Start: 12-25-2020 COVID-19 VACCINE (3 - Booster for Moderna series) COVID-19 VACCINE (3 - Booster for Moderna series) [facility] Start: 09-22-2020 COVID-19 VACCINE (3 - Booster for Moderna series) COVID-19 VACCINE (3 - Booster for Moderna series) [facility] Start: 09-22-2020 COVID-19 VACCINE (3 - Moderna series) COVID-19 VACCINE (3 - Moderna series) [facility] Start: 2016 HPV TESTING HPV TESTING [facility] Start: 08-28-2007 PAP TESTING PAP TESTING [facility] Start: 2005 Hepatitis B Vaccine (1 of 3 - 19+ 3-dose series) Hepatitis B Vaccine (1 of 3 - 19+ 3-dose series) [facility] Start: 2005 Urine microalbumin profile DTAP,TDAP,TD (1 - Tdap) [facility] Start: 08-28-1999 Varicella Vaccine (1 of 2 - 13+ 2-dose series) Varicella Vaccine (1 of 2 - 13+ 2-dose series) [facility] Start: 1998 Adult depression screening assessment DEPRESSION SCREENING [facility] Start: 1993 DTaP/Tdap/Td Vaccine (1 - Tdap) DTaP/Tdap/Td Vaccine (1 - Tdap) [facility] Start: 08-28-1987 MMR Vaccine (1 of 1 - Standard series) MMR Vaccine (1 of 1 - Standard series) [facility] Start: 1986 HEPATITIS B (1 of 3 - 3-dose series) HEPATITIS B (1 of 3 - 3-dose series) [facility] CBC W Auto Differential panel - Blood [facility] Erythrocyte mean corpuscular volume determination [facility] End: 04-11-2023 Estradiol (E2) [Mass/volume] in Serum or Plasma ESTRADIOL-17B BLD Lab STAT Encounter for fertility testing 6 Occurrences starting 04/11/2022 until 04/11/2023 [facility] Work Phone: Comment on above: 6 Occurrences starti ng 04/11/2022 until 04/11/2023 End: 08-24-2022 Estradiol (E2) [Mass/volume] in Serum or Plasma ESTRADIOL-17B BLD Lab STAT Female infertility 6 Occurrences starting 07/24/2022 until 08/24/2022 [facility] Work Phone: Comment on above: 6 Occurrences starti ng 07/24/2022 until 08/24/2022 End: 10-30-2022 Estradiol (E2) [Mass/volume] in Serum or Plasma ESTRADIOL-17B BLD Lab STAT Female infertility 6 Occurrences starting 08/28/2022 until 10/30/2022 [facility] Work Phone: Comment on above: 6 Occurrences starti ng 08/28/2022 until 10/30/2022 End: 10-22-2021 FOLLICULAR US WHI FOLLICULAR US WHI Anc Imaging Routine Female infertility 6 Occurrences starting 09/22/2021 until 10/22/2021 [facility] Work Phone: Comment on above: 6 Occurrences starti ng 09/22/2021 until 10/22/2021 End: 11-05-2021 FOLLICULAR US WHI FOLLICULAR US WHI Anc Imaging Routine Female infertility 6 Occurrences starting 10/06/2021 until 11/05/2021 [facility] Work Phone: Comment on above: 6 Occurrences starti ng 10/06/2021 until 11/05/2021 FOLLICULAR US WHI FOLLICULAR US WHI Anc Imaging Routine Primary female infertility Ordered: 12/26/2021 [facility] Work Phone: Comment on above: Ordered: 12/26/2021 End: 03-24-2022 FOLLICULAR US WHI FOLLICULAR US WHI Anc Imaging Routine Female infertility 6 Occurrences starting 02/22/2022 until 03/24/2022, 1 completed [facility] Work Phone: Comment on above: 6 Occurrences starti ng 02/22/2022 until 03/24/2022, 1 completed End: 04-11-2023 FOLLICULAR US WHI FOLLICULAR US WHI Anc Imaging Routine Encounter for fertility testing Daily for 6 Occurrences starting 04/11/2022 until 04/11/2023 [facility] Work Phone: Comment on above: Daily for 6 Occurren javy starting 04/11/2022 until 04/11/2023 End: 10-30-2022 FOLLICULAR US WHI FOLLICULAR US WHI Anc Imaging Routine Female infertility Daily for 6 Occurrences starting 08/28/2022 until 10/30/2022 [facility] Work Phone: Comment on above: Daily for 6 Occurren javy starting 08/28/2022 until 10/30/2022 Hematocrit [Volume Fraction] of Blood [facility] Hemoglobin [Mass/volume] in Blood [facility] Hepatitis B virus surface Ag [Presence] in Serum [facility] Hepatitis C antibody measurement [facility] Leukocytes [#/volume ] in Blood [facility] Mean corpuscular hemoglobin concentration determination [facility] Mean corpuscular hemoglobin determination [facility] Neutrophil count [facility] Neutrophil percent differential count [facility] End: 11-30-2022 OFFICE HYSTEROSCOPY OFFICE HYSTEROSCOPY Procedures Routine Encounter for fertility testing 1 Occurrences starting 12/01/2021 until 11/30/2022 [facility] Work Phone: Comment on above: 1 Occurrences starti ng 12/01/2021 until 11/30/2022 Platelets [#/volume] in Blood [facility] Procedure [facility] Red blood cell count [facility] Red cell distributio n width determination [facility] Rubella IgG measurement [facility] Serologic test for syphilis [facility] T4 free measurement [facility] Thyroid stimulating hormone measurement [facility] Immunizations Immunization Date Immunization Notes Care Provider [facility] 04-27-2022 influenza virus vaccine, unspecified formulation Andres Fitzgerald APN Work Phone: [facility] 07-28-2020 COVID-19 vaccine, fu ll dose (MODERNA) Aiyana Harman APRN.CNP Work Phone: [facility] 06-30-2020 COVID-19 vaccine, fu ll dose (MODERNA) Aiyana Harman NURSE PRACTITIONER.[employer] Work Phone: [facility] 04-06-2020 influenza virus vaccine, unspecified formulation Aiyana Kimani NURSE PRACTITIONER.[employer] Work Phone: [facility] 03-24-2020 influenza, seasonal, injectable Aiyana Kimani NURSE PRACTITIONER.[employer] Work Phone: [facility] Payers Date Payer Category Payer Self-pay 2022 Unknown [id number] 2021 Private Health Insurance [facility] [employer] [id number] 2021-Present [phone] [address] [place] [address] O [id number] 2021 Private Health Insurance [id number] 2021 Unknown [id number] 2020 Unknown [id number] 2015 Unknown [id number] 1986 Unknown [id number] 2.16.840.1.146565.3.579.2. 594 1986 Unknown [id number] 2.16.840.1.555769.3.579.2. 651 1986 Unknown [id number] 2.16.840.1.728531.3.579.2. 598 1986 Unknown [id number] 2.16.840.1.831498.3.579.2. 598 1986 Unknown [id number] 2.16.840.1.361094.3.579.2. 430 1986 Unknown [id number] 2.16.840.1.005167.3.579.2. 430 1986 Unknown [id number] 2.16.840.1.712848.3.579.2. 430 1986 Unknown [id number] 2.16.840.1.770153.3.579.2. 430 1986 Unknown [id number] 2.16840.1.268730.3.579.2. 430 1986 Unknown [id number] 2.840.1.006077.3.579.2. 430 1986 Unknown [id number] 2.16840.1.454889.3.579.2. 479 1986 Unknown [id number] 2.16840.1.284684.3.579.2. 479 1959 Unknown [id number] Self-pay SELF PAY INSURANCE [id number] Unknown [facility] [id number] Unknown [id number] 2.16840.1.441877.3.579.2. 462 Unknown [id number] 2.16840.1.803977.3.579.2. 462 Unknown [id number] 2.16840.1.149003.3.579.2. 462 Unknown [id number] 2.16840.1.128324.3.579.2. 462 Unknown [id number] 2.16840.1.140532.3.579.2. 462 Unknown [id number] 2.16840.1.866999.3.579.2. 462 Unknown [id number] 2.16840.1.237461.3.579.2. 462 Unknown [id number] 2.16840.1.016473.3.579.2. 462 Unknown [id number] 2.16.840.1.645281.3.579.2. 462 Unknown [id number] 2.16.840.1.496488.3.579.2. 462 Unknown [id number] 2.16.840.1.230123.3.579.2. 462 Social History Date Type Detail Facility Start: 10-01-2019 End: 10-14-2024 Tobacco smoking status NHIS Never smoked tobacco [facility] Work Phone: Start: 10-01-2019 Tobacco use and exposure Smokeless tobacco non-user [facility] Work Phone: Start: 03-16-2021 End: 10-10-2021 Alcohol intake Ex-drinker (finding) [facility] Start: 1985 Sex Assigned At Female [facility] Start: 09-10-2021 End: 04-24-2022 Exposure to SARS-CoV-2 (event) Not sure [facility] Work Phone: Start: 10-06-2021 End: 10-16-2021 Exposure to SARS-CoV-2 (event) Unable to assess [facility] Start: 10-10-2021 End: 04-10-2024 History of Social function [facility] Start: 10-10-2021 End: 04-10-2024 Tobacco use panel [facility] National Score (1-10 0), lower number is lower risk Not on file [facility] Start: 12-23-2019 Gender identity Identifies as female gender (finding) [facility] Start: 12-23-2019 Sexual orientation Heterosexual (finding) [facility] Tobacco smoking stat us MNIS Tobacco smoking consumption unknown [facility] (I/We) worried wheth er (my/our) food would run out before (I/we) got money to buy more. Never true [facility] In the past 12 month s, was there a time when you were not able to pay the mortgage or rent on time? No [facility] Start: 1985 Sex Assigned At Not on file [facility] Start: 04-14-2016 Alcohol Alcohol [facility] Start: 04-14-2016 Tobacco Use Tobacco Use [facility] Medical Equipment Procedure Code Equipment Code Equipment Original Text Equipment Identifier Dates Start: 08-28-2022 Comment on above: To be used to draw u p and inject low dose HCG Inject 80 units subc utaneously once as directed for Lupron trigger To be used to inject HCG trigger To be used to mix, d raw up and inject HCG trigger To be used to mix lo w dose HCG Clinical Notes 09-22-2021 to 11-18-2024 Note Date & Type Note Facility 11-18-2024 Radiology Diagnostic study note [facility] Imaging Services [address] [place], [place] [address] Transvaginal w/Preg US MR#: [id number] Acct: [id number] Name: ALTONYA RODARTE Rep #: [id number] : 1985 F 39 From: Etelvina Dominguez MD PCP: Dr. Imani Helm, Status: REG CLI Study:Transvaginal w/Preg US Date of Exam: 11/18/24 Exam# [id number] Ordering Dr: Jesse Horvath DREDGE CAPTAIN DREDGE CAPTAIN-C PROCEDURE: TRANSVAGINAL W/PREG US 11/18/2024 REASON FOR EXAM: SPOTTING IN EARLY TECHNIQUE: High resolution obstetric ultrasound performed using a 2D transducer. Transvaginal ultrasound imaging. Standard views obtained, including biometry, anatomy survey, and Doppler studies. COMPARISON: None FINDINGS Live intrauterine with gestational sac measuring 5.3 cm corresponding with gestational age of 11 weeks and 1 day. Shape of the gestational sac is within normal limits. Yolk sac is not visualized at this time. Embryo CRL measures 6.45 cm corresponding with gestational age of 12 weeks and 5days. heart rate of 164 beats per minute. Overall estimated gestational age of 12 weeks and 0 days with estimated deliverydate of 06/02/2025. Uterus measures 15.8 x 9.4 x 6.7 cm. No fibroids. Cervix is closed. No significant fluid within the cul-de-sac. Bilateral ovaries are not well visualized. US/Transvaginal w/Preg US IMPRESSION: Live intrauterine gestational with sonographic gestational age of 12 weeks and 0 days with estimated delivery date of 06/02/2025. No sonographic evidence of significant abnormalities. Bilateral ovaries are not well seen. Reading Location: [facility] CC: FERNANDO Horvath; Dr. 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 October 14, 2024 9:01am History of miscarriage, currently acute October 14 9:01am Hx of maternal blood transfusion, currently acute October 14, 2024 9:01am Hypothyroidism affecting acute October 14, 2024 9:01am In vitro fertilization acute Ap ril 2024 9:01am acute October 14 9:01am Supervision of high-risk acute October 14, 2024 9:01am Advanced maternal age (AMA) in acute October 24, 2024 11:26am Anxiety and depression acute Ma y 2024 11:26am 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 October 24, 2024 11:26am History of miscarriage, currently acute October 24, 2024 11:26am Hx of maternal blood transfusion, currently acute October 24, 2024 11:26am Hypothyroidism affecting acute October 24, 2024 11:26am In vitro fertilization acute Ma y 2024 11:26am Lipoma of back acute October 24, 2 025 11:26am acute October 24, 2024 11:26am Supervision of high-risk acute October 24, 2024 11:26am VACTERL syndrome acute October 24, 2024 11:26am 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 24, 2024 11:26am 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 24, 2024 11:26am 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 24, 2024 11:26am Hydrosalpinx chronic October 24 11:26am Imperforate anus chronic October 24, 2024 11:26am Rectal atresia chronic October 24, 2 025 11:26am Recto-vaginal fistula chronic October 24, 2024 11:26am Tethered cord chronic October 24 11:26am [facility] Work Phone: 1(101) 372-492704-29-2025 Evaluation note* Diagnosis Onset Date Resolution Status Admit Date Advanced maternal age (AMA) in acute October 14, 2024 9:01am Anxiety and depression acute Ap ril 2024 9:01am 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 October 14, 2024 9:01am History of miscarriage, currently acute October 14 9:01am Hx of maternal blood transfusion, currently acute October 14, 2024 9:01am Hypothyroidism affecting acute October 14, 2024 9:01am In vitro fertilization acute Ap ril 2024 9:01am acute October 14 9:01am Supervision of high-risk acute October 14, 2024 9:01am Advanced maternal age (AMA) in acute October 24, 2024 11 :26am Anxiety and depression acute Ma y 2024 11:26am 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 October 24, 2024 11:26am History of miscarriage, currently acute October 24, 2024 11:26am Hx of maternal blood transfusion, currently acute October 24, 2024 11:26am Hypothyroidism affecting acute October 24, 2024 11 :26am In vitro fertilization acute Ma y 2024 11:26am acute October 24, 2024 11:26am Supervision of high-risk acute October 24, 2024 11 :26am VACTERL syndrome acute October 24, 2024 11:26am Congenital duplication of vagina chr onic October 24, 2024 11:26am Rectal atresia chronic October 24, 025 11:26am Recto-vaginal fistula chronic October 24, 2024 11:26am Tethered cord chronic October 24 11:26am Congenital duplication of uterus res olved October 24, 2024 11:26am Duplicate cervix resolved October 24, 2024 11:26am Hydrosalpinx resolved October 24 11:26am Imperforate anus resolved October 24, 2024 11:26am Lipoma of back resolved October 24, 2 025 11:26am Advanced maternal age (AMA) in acute October 30, 2024 9 :03am Anxiety and depression acute Ma y 2024 9:03am 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 October 30, 2024 9:03am History of miscarriage, currently acute October 30 9:03am Hx of maternal blood transfusion, currently acute October 30, 2024 9:03am Hypothyroidism affecting acute October 30, 2024 9 :03am In vitro fertilization acute Ma y 2024 9:03am acute October 30, 2024 9:03am Supervision of high-risk acute October 30, 2024 9 :03am UTI (urinary tract infection ) during acute October 30, 2024 9:03am VACTERL syndrome acute October 9:03am Congenital duplication of vagina chr onic October 30, 2024 9:03am Rectal atresia chronic October 30, 2024 9:03am Recto-vaginal fistula chronic October 30, 2024 9:03am Tethered cord chronic October 30, 025 9:03am Congenital duplication of uterus res olved October 30, 2024 9:03am Imperforate anus resolved October 9:03am Lipoma of back resolved October 30, 2024 9:03am [facility] Work Phone: 1(898) 469-674504-29-2025 Evaluation note* Diagnosis Onset Date Resolution Status Admit Date Advanced maternal age (AMA) in acute October 14, 2024 9:01am Anxiety and depression acute Ap ril 2024 9:01am 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 October 14, 2024 9:01am History of miscarriage, currently acute October 14, 2 025 9:01am Hx of maternal blood transfusion, currently acute October 14, 2024 9:01am Hypothyroidism affecting acute October 14, 2024 9:01am In vitro fertilization acute Ap ril 2024 9:01am acute October 14, 9:01am Supervision of high-risk acute October 14, 2024 9:01am Advanced maternal age (AMA) in acute October 24, 2024 11 :26am Anxiety and depression acute Ma y 2024 11:26am 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 October 24, 2024 11:26am History of miscarriage, currently acute October 24, 2024 11:26am Hx of maternal blood transfusion, currently acute October 24, 2024 11:26am Hypothyroidism affecting acute October 24, 2024 11 :26am In vitro fertilization acute Ma y 2024 11:26am acute October 24, 2024 11:26am Supervision of high-risk acute October 24, 2024 11 :26am VACTERL syndrome acute October 24, 2024 11:26am Congenital duplication of vagina chr onic October 24, 2024 11:26am Rectal atresia chronic October 24, 025 11:26am Recto-vaginal fistula chronic October 24, 2024 11:26am Tethered cord chronic October 24 11:26am Congenital duplication of uterus res olved October 24, 2024 11:26am Duplicate cervix resolved October 24, 2024 11:26am Hydrosalpinx resolved October 24 11:26am Imperforate anus resolved October 24, 2024 11:26am Lipoma of back resolved October 24, 025 11:26am Advanced maternal age (AMA) in acute October 30, 2024 9 :03am Anxiety and depression acute Ma y 2024 9:03am 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 October 30, 2024 9:03am History of miscarriage, currently acute October 30 9:03am Hx of maternal blood transfusion, currently acute October 30, 2024 9:03am Hypothyroidism affecting acute October 30, 2024 9 :03am In vitro fertilization acute Ma y 2024 9:03am acute October 30, 2024 9:03am Supervision of high-risk acute October 30, 2024 9 :03am UTI (urinary tract infection ) during acute October 30, 2024 9:03am VACTERL syndrome acute October 9:03am Congenital duplication of vagina chr onic October 30, 2024 9:03am Rectal atresia chronic October 30, 2024 9:03am Recto-vaginal fistula chronic October 30, 2024 9:03am Tethered cord chronic October 30, 2 025 9:03am Congenital duplication of uterus res olved October 30, 2024 9:03am Imperforate anus resolved October 9:03am Lipoma of back resolved October 30, 2024 9:03am Advanced maternal age (AMA) in acute November 06, 2024 2 :01pm Anxiety and depression acute Ma y 2024 2:01pm 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 November 06, 2024 2:01pm History of miscarriage, currently acute November 06 2:01pm Hx of maternal blood transfusion, currently acute November 06, 2024 2:01pm Hypothyroidism affecting acute November 06, 2024 2 :01pm In vitro fertilization acute Ma y 2024 2:01pm acute November 06, 2024 2:01pm Supervision of high-risk acute November 06, 2024 2 :01pm UTI (urinary tract infection ) during acute November 06, 2024 2:01pm VACTERL syndrome acute October 2:01pm Congenital duplication of vagina chr onic November 06, 2024 2:01pm Rectal atresia chronic November 06, 2024 2:01pm Recto-vaginal fistula chronic November 06, 2024 2:01pm Tethered cord chronic November 06, 2 025 2:01pm [facility] Work Phone: 1(349) 563-738104-29-2025 Evaluation note* Diagnosis Onset Date Resolution Status Admit Date Advanced maternal age (AMA) in acute October 14, 2024 9:01am Anxiety and depression acute Ap ril 2024 9:01am 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 October 14, 2024 9:01am History of miscarriage, currently acute October 14, 2 025 9:01am Hx of maternal blood transfusion, currently acute October 14, 2024 9:01am Hypothyroidism affecting acute October 14, 2024 9:01am In vitro fertilization acute Ap ril 2024 9:01am acute October 14, 9:01am Supervision of high-risk acute October 14, 2024 9:01am Advanced maternal age (AMA) in acute October 24, 2024 11 :26am Anxiety and depression acute Ma y 2024 11:26am 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 October 24, 2024 11:26am History of miscarriage, currently acute October 24, 2024 11:26am Hx of maternal blood transfusion, currently acute October 24, 2024 11:26am Hypothyroidism affecting acute October 24, 2024 11 :26am In vitro fertilization acute Ma y 2024 11:26am acute October 24, 2024 11:26am Supervision of high-risk acute October 24, 2024 11 :26am VACTERL syndrome acute October 24, 2024 11:26am Congenital duplication of vagina chr onic October 24, 2024 11:26am Rectal atresia chronic October 24, 025 11:26am Recto-vaginal fistula chronic October 24, 2024 11:26am Tethered cord chronic October 24 11:26am Congenital duplication of uterus res olved October 24, 2024 11:26am Duplicate cervix resolved October 24, 2024 11:26am Hydrosalpinx resolved October 24 11:26am Imperforate anus resolved October 24, 2024 11:26am Lipoma of back resolved October 24, 025 11:26am Advanced maternal age (AMA) in acute October 30, 2024 9 :03am Anxiety and depression acute Ma y 2024 9:03am 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 October 30, 2024 9:03am History of miscarriage, currently acute October 30 9:03am Hx of maternal blood transfusion, currently acute October 30, 2024 9:03am Hypothyroidism affecting acute October 30, 2024 9 :03am In vitro fertilization acute Ma y 2024 9:03am acute October 30, 2024 9:03am Supervision of high-risk acute October 30, 2024 9 :03am UTI (urinary tract infection ) during acute October 30, 2024 9:03am VACTERL syndrome acute October 9:03am Congenital duplication of vagina chr onic October 30, 2024 9:03am Rectal atresia chronic October 30, 2024 9:03am Recto-vaginal fistula chronic October 30, 2024 9:03am Tethered cord chronic October 30, 2 025 9:03am Congenital duplication of uterus res olved October 30, 2024 9:03am Imperforate anus resolved October 9:03am Lipoma of back resolved October 30, 2024 9:03am Advanced maternal age (AMA) in acute November 06, 2024 2 :01pm Anxiety and depression acute Ma y 2024 2:01pm 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 November 06, 2024 2:01pm History of miscarriage, currently acute November 06 2:01pm Hx of maternal blood transfusion, currently acute November 06, 2024 2:01pm Hypothyroidism affecting acute November 06, 2024 2 :01pm In vitro fertilization acute Ma y 2024 2:01pm acute November 06, 2024 2:01pm Supervision of high-risk acute November 06, 2024 2 :01pm UTI (urinary tract infection ) during acute November 06, 2024 2:01pm VACTERL syndrome acute October 2:01pm Congenital duplication of vagina chr onic November 06, 2024 2:01pm Rectal atresia chronic November 06, 2024 2:01pm Recto-vaginal fistula chronic November 06, 2024 2:01pm Tethered cord chronic November 06, 2 025 2:01pm Advanced maternal age (AMA) in acute November 13, 2024 8 :07am Anxiety and depression acute Ma y 2024 8:07am 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 November 13, 2024 8:07am History of miscarriage, currently acute November 13 8:07am Hx of maternal blood transfusion, currently acute November 13, 2024 8:07am Hypothyroidism affecting acute November 13, 2024 8 :07am In vitro fertilization acute Ma y 2024 8:07am acute November 13, 2024 8:07am Supervision of high-risk acute November 13, 2024 8 :07am UTI (urinary tract infection ) during acute November 13, 2024 8:07am VACTERL syndrome acute October 8:07am Congenital duplication of vagina chr onic November 13, 2024 8:07am Rectal atresia chronic November 13, 2024 8:07am Recto-vaginal fistula chronic November 13, 2024 8:07am Tethered cord chronic November 13, 2 025 8:07am [facility] Work Phone: 1(347) 439-320604-29-2025 Evaluation note* Diagnosis Onset Date Resolution Status Admit Date Advanced maternal age (AMA) in acute October 14, 2024 9:01am Anxiety and depression acute Ap ril 2024 9:01am 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 October 14, 2024 9:01am History of miscarriage, currently acute October 14, 025 9:01am Hx of maternal blood transfusion, currently acute October 14, 2024 9:01am Hypothyroidism affecting acute October 14, 2024 9:01am In vitro fertilization acute Ap ril 2024 9:01am acute October 14 9:01am Supervision of high-risk acute October 14, 2024 9:01am Advanced maternal age (AMA) in acute October 24, 2024 11 :26am Anxiety and depression acute Ma y 2024 11:26am 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 October 24, 2024 11:26am History of miscarriage, currently acute October 24, 2024 11:26am Hx of maternal blood transfusion, currently acute October 24, 2024 11:26am Hypothyroidism affecting acute October 24, 2024 11 :26am In vitro fertilization acute Ma y 2024 11:26am acute October 24, 2024 11:26am Supervision of high-risk acute October 24, 2024 11 :26am VACTERL syndrome acute October 24, 2024 11:26am Congenital duplication of vagina chr onic October 24, 2024 11:26am Rectal atresia chronic October 24, 025 11:26am Recto-vaginal fistula chronic October 24, 2024 11:26am Tethered cord chronic October 24 11:26am Congenital duplication of uterus res olved October 24, 2024 11:26am Duplicate cervix resolved October 24, 2024 11:26am Hydrosalpinx resolved October 24 11:26am Imperforate anus resolved October 24, 2024 11:26am Lipoma of back resolved October 24, 2 025 11:26am Advanced maternal age (AMA) in acute October 30, 2024 9 :03am Anxiety and depression acute Ma y 2024 9:03am 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 October 30, 2024 9:03am History of miscarriage, currently acute October 30 9:03am Hx of maternal blood transfusion, currently acute October 30, 2024 9:03am Hypothyroidism affecting acute October 30, 2024 9 :03am In vitro fertilization acute Ma y 2024 9:03am acute October 30, 2024 9:03am Supervision of high-risk acute October 30, 2024 9 :03am UTI (urinary tract infection ) during acute October 30, 2024 9:03am VACTERL syndrome acute October 9:03am Congenital duplication of vagina chr onic October 30, 2024 9:03am Rectal atresia chronic October 30, 2024 9:03am Recto-vaginal fistula chronic October 30, 2024 9:03am Tethered cord chronic October 30, 2 025 9:03am Congenital duplication of uterus res olved October 30, 2024 9:03am Imperforate anus resolved October 9:03am Lipoma of back resolved October 30, 2024 9:03am Advanced maternal age (AMA) in acute November 06, 2024 2 :01pm Anxiety and depression acute Ma y 2024 2:01pm 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 November 06, 2024 2:01pm History of miscarriage, currently acute November 06 2:01pm Hx of maternal blood transfusion, currently acute November 06, 2024 2:01pm Hypothyroidism affecting acute November 06, 2024 2 :01pm In vitro fertilization acute Ma y 2024 2:01pm acute November 06, 2024 2:01pm Supervision of high-risk acute November 06, 2024 2 :01pm UTI (urinary tract infection ) during acute November 06, 2024 2:01pm VACTERL syndrome acute October 2:01pm Congenital duplication of vagina chr onic November 06, 2024 2:01pm Rectal atresia chronic November 06, 2024 2:01pm Recto-vaginal fistula chronic November 06, 2024 2:01pm Tethered cord chronic November 06, 2 025 2:01pm Advanced maternal age (AMA) in acute November 13, 2024 8 :07am Anxiety and depression acute 2024 8:07am 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 November 13, 2024 8:07am History of miscarriage, currently acute November 13 8:07am Hx of maternal blood transfusion, currently acute November 13, 2024 8:07am Hypothyroidism affecting acute November 13, 2024 8 :07am In vitro fertilization acute 2024 8:07am acute November 13, 2024 8:07am Supervision of high-risk acute November 13, 2024 8 :07am UTI (urinary tract infection ) during acute November 13, 2024 8:07am VACTERL syndrome acute October 8:07am Congenital duplication of vagina chr onic November 13, 2024 8:07am Rectal atresia chronic November 13, 2024 8:07am Recto-vaginal fistula chronic November 13, 2024 8:07am Tethered cord chronic November 13, 2 025 8:07am Advanced maternal age (AMA) in acute November 18, 2024 2 :10pm Anxiety and depression acute 2024 2:10pm 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 November 18, 2024 2:10pm History of miscarriage, currently acute November 18 2:10pm Hx of maternal blood transfusion, currently acute November 18, 2024 2:10pm Hypothyroidism affecting acute November 18, 2024 2 :10pm In vitro fertilization acute 2024 2:10pm acute November 18, 2024 2:10pm Spotting affecting in first trimester acute November 18, 2024 2 :10pm Supervision of high-risk acute November 18, 2024 2 :10pm VACTERL syndrome acute November 2:10pm Congenital duplication of vagina chr onic November 18, 2024 2:10pm Rectal atresia chronic November 18, 2024 2:10pm Recto-vaginal fistula chronic Nov 2:10pm Tethered cord chronic November 18 025 2:10pm [facility] Work Phone: 1(592) 343-249204-29-2025 Evaluation note* Diagnosis Onset Date Resolution Status Admit Date Advanced maternal age (AMA) in acute October 14, 2024 9:01am Anxiety and depression acute Ap ril 2024 9:01am 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 October 14, 2024 9:01am History of miscarriage, currently acute October 14, 025 9:01am Hx of maternal blood transfusion, currently acute October 14, 2024 9:01am Hypothyroidism affecting acute October 14, 2024 9:01am In vitro fertilization acute Ap ril 2024 9:01am acute October 14 9:01am Supervision of high-risk acute October 14, 2024 9:01am Advanced maternal age (AMA) in acute October 24, 2024 11 :26am Anxiety and depression acute Ma y 2024 11:26am 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 October 24, 2024 11:26am History of miscarriage, currently acute October 24, 2024 11:26am Hx of maternal blood transfusion, currently acute October 24, 2024 11:26am Hypothyroidism affecting acute October 24, 2024 11 :26am In vitro fertilization acute Ma y 2024 11:26am acute October 24, 2024 11:26am Supervision of high-risk acute October 24, 2024 11 :26am Congenital duplication of vagina chr onic October 24, 2024 11:26am Rectal atresia chronic October 24 025 11:26am Recto-vaginal fistula chronic October 24, 2024 11:26am Tethered cord chronic October 24 11:26am Congenital duplication of uterus res olved October 24, 2024 11:26am Duplicate cervix resolved October 24, 2024 11:26am Hydrosalpinx resolved October 24 11:26am Imperforate anus resolved October 24, 2024 11:26am Lipoma of back resolved October 24 2 025 11:26am VACTERL syndrome deleted October 24, 2024 11:26am Advanced maternal age (AMA) in acute October 30, 2024 9 :03am Anxiety and depression acute Ma y 2024 9:03am 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 October 30, 2024 9:03am History of miscarriage, currently acute October 30 9:03am Hx of maternal blood transfusion, currently acute October 30, 2024 9:03am Hypothyroidism affecting acute October 30, 2024 9 :03am In vitro fertilization acute Ma y 2024 9:03am acute October 30, 2024 9:03am Supervision of high-risk acute October 30, 2024 9 :03am UTI (urinary tract infection ) during acute October 30, 2024 9:03am Congenital duplication of vagina chr onic October 30, 2024 9:03am Rectal atresia chronic October 30, 2024 9:03am Recto-vaginal fistula chronic October 30, 2024 9:03am Tethered cord chronic October 30, 2 025 9:03am Congenital duplication of uterus res olved October 30, 2024 9:03am Imperforate anus resolved October 9:03am Lipoma of back resolved October 30, 2024 9:03am VACTERL syndrome deleted October 9:03am Advanced maternal age (AMA) in acute November 06, 2024 2 :01pm Anxiety and depression acute Ma y 2024 2:01pm 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 November 06, 2024 2:01pm History of miscarriage, currently acute November 06 2:01pm Hx of maternal blood transfusion, currently acute November 06, 2024 2:01pm Hypothyroidism affecting acute November 06, 2024 2 :01pm In vitro fertilization acute Ma y 2024 2:01pm acute November 06, 2024 2:01pm Supervision of high-risk acute November 06, 2024 2 :01pm UTI (urinary tract infection ) during acute November 06, 2024 2:01pm Congenital duplication of vagina chr onic November 06, 2024 2:01pm Rectal atresia chronic November 06, 2024 2:01pm Recto-vaginal fistula chronic November 06, 2024 2:01pm Tethered cord chronic November 06, 2 025 2:01pm VACTERL syndrome deleted October 2:01pm Advanced maternal age (AMA) in acute November 13, 2024 8 :07am Anxiety and depression acute 2024 8:07am 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 November 13, 2024 8:07am History of miscarriage, currently acute November 13 8:07am Hx of maternal blood transfusion, currently acute November 13, 2024 8:07am Hypothyroidism affecting acute November 13, 2024 8 :07am In vitro fertilization acute Ma y 2024 8:07am acute November 13, 2024 8:07am Supervision of high-risk acute November 13, 2024 8 :07am UTI (urinary tract infection ) during acute November 13, 2024 8:07am Congenital duplication of vagina chr onic November 13, 2024 8:07am Rectal atresia chronic November 13, 2024 8:07am Recto-vaginal fistula chronic November 13, 2024 8:07am Tethered cord chronic November 13, 2 025 8:07am VACTERL syndrome deleted October 8:07am Advanced maternal age (AMA) in acute November 18, 2024 2 :10pm Anxiety and depression acute 2024 2:10pm 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 November 18, 2024 2:10pm History of miscarriage, currently acute November 18 2:10pm Hx of maternal blood transfusion, currently acute November 18, 2024 2:10pm Hypothyroidism affecting acute November 18, 2024 2 :10pm In vitro fertilization acute 2024 2:10pm acute November 18, 2024 2:10pm Spotting affecting in first trimester acute November 18, 2024 2 :10pm Supervision of high-risk acute November 18, 2024 2 :10pm Congenital duplication of vagina chr onic November 18, 2024 2:10pm Rectal atresia chronic November 18, 2024 2:10pm Recto-vaginal fistula chronic Nov 2:10pm Tethered cord chronic November 18, 2 025 2:10pm 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 2:10pm Advanced maternal age (AMA) in acute November 26, 2024 2:33pm Anxiety and depression acute Ju ne 2024 2:33pm ARM (anorectal malformation) acute November 26, 2024 2:33pm 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 November 26, 2024 2:33pm History of miscarriage, currently acute November 26 2:33pm Hx of maternal blood transfusion, currently acute November 26, 2024 2:33pm Hypothyroidism affecting acute November 26, 2024 2:33pm In vitro fertilization acute Ju ne 2024 2:33pm acute November 26 2:33pm Spotting affecting in first trimester acute November 26, 2024 2:33pm Supervision of high-risk acute November 26, 2024 2:33pm UTI (urinary tract infection ) during acute November 26, 2024 2:33pm Congenital duplication of vagina chr onic November 26, 2024 2:33pm Rectal atresia chronic November 26, 2024 2:33pm Recto-vaginal fistula chronic Tomas e 2024 2:33pm Tethered cord chronic November 26, 2024 2:33pm 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 2:33pm [employer] Phone: [phone] NoteHistory: Constipation. 7 weeks . Procedure note: A timeout was performed per protocol. The patient's cecostomy tube was exchanged over a wire. The balloon was inflated and the line flushed.[id number] History of Present illness Narrative* Jesse Edwards CPNP - 10/09/2024 10:00 AM EDT [facility] Urology Clinic Note INFORMANT: SOUMYA Latonya is a 39yo female with a history significant for anorectal malformation (rectovaginal) and tethered cord s/p repair. From a urological perspective, Latonya also has a reported history of bilateral kidney stones and bilateral VUR s/p bilateral ureteral reimplantation (Allyssa, 2000). She was last seen by Urology in [facility] clinic in November 2021 where she overall doing well with the continuation of Valsava voiding and daily urethral catheterizations to assist with complete bladder emptying. At that time, she reported performing daily CICs with residuals averaging 200-300mL, though necessitating anincrease in CIC frequency in association with her menstrual cycle. She has childhood history pertinent for febrile UTIs and recurrent afebrile UTIs as an adult; she denies any interval UTI development since the time of her last visit. Her most recent renal ultrasound completed in 2020 was notable for bilateral renal stability with a consistently smaller right kidney evidencing the presence of scarring. Of note, Latonya recently became and is currently 7 weeks gestation. Since the time of conception, she has felt increase pelvic pressure and consequently has increase the frequency of urethral catheterizations to twice daily; she denies any urinary incontinence, frequency, urgency, or dysuria. Thus, she presents to clinic for annual evaluation with a renal ultrasound prior. Previous urological testing has included: CHARLES (09/08/2020): the right kidney is smaller than the left kidney with evidence of scarring in theupper and lower poles Labs (10/21/2020): BUN/Cr 16.0.86 ARM INDEX DATA Malformation: ARM (rectovaginal) Spine: TC s/p repair Sacrum: unknown PAST MEDICAL/SURGICAL HISTORY She has a past medical history of ADHD, Anemia, Anorectal malformation, Anxiety, Depression, Fecal incontinence, Generalized abdominal pain, History of tethered spinal cord, Kidney stones, Malrotation of kidney, Pelvic peritoneal adhesions, female, Uterus didelphys, UTI (urinary tract infection), Vaginal septum, and VUR (vesicoureteric reflux). She has a past surgical history that includes hx MACE stoma revision (11/01/2010); EUA and dilationof rectovaginal fistula (1986); hx exam under anesthesia (1986); Modified cutback anoplasty (1986); bowel resection (1989); Tethered cord repair (1999); Henson and bilateral ureteral reimplant (06/18/1999); Henson revision for stenosis (11/01/2010); vaginal septum resection (2015); Inspection of Mullerian structures (08/28/2019); and Henson revision, fallopian tube ligation and pelvic CIERA (05/20/2020). Family History Family Medical History None CURRENT MEDICATIONS Current Outpatient Medications: levothyroxine 75 mcg tablet, Take 1 tablet by mouth once daily., Disp: , Rfl: no115/iron/folic acid ( 19 ORAL), Take 1 Application by mouth., Disp: , Rfl: glycerin 99.5 % topical solution, 30 mL. For use during nightly antegrade enema TAKING WITH 500ML WATER, Disp: , Rfl: 25/iron fum/folic/dha (-1 ORAL), Take by mouth., Disp: , Rfl: ergocalciferol, vitamin D2, (VITAMIN D ORAL), Take by mouth., Disp: , Rfl: castile soap packets for enema use, Insert 1 Packet into rectum once daily. Add 1 packet daily to antegrade enema, Disp: 30 Packet, Rfl: 11 sodium phosphates (FLEET ENEMA) 19-7 gram/118 mL rectal enema, Insert into rectum once daily. 1.5 bottles in henson flush Indications: emptying of the bowel, Disp: , Rfl: sodium chloride 0.9% irrigation soln 0.9 % irrigation irrigation, 500 mL by Irrigation route once daily., Disp: , Rfl: ALLERGIES Ampicillin ROS URO CCPR ROS: General: no fatigue and no fever Cardiovascular: no chest pain Respiratory: no cough Gastrointestinal: no nausea and no vomiting Urinary: no frequent urination, no urine decrease, no urgency and no urinary incontinence Musculoskeletal: no back pain Neurologic: no gait problems Skin: no rash PE BP (!) 113/54 Pulse 81 Ht 162.6 cm (64) Wt 74.6 kg (164 lb 7.4 oz) BMI 28.23 kg/m Constitutional: well developed and well nourished and in no acute distress Cardiovascular: no cyanosis and good capillary refill Respiratory: normal respiratory movement and no audible wheeze or use of accessory muscles Musculoskeletal: full range of motion and normal extremities Abdomen: soft, non-tender, and non-distended Neurologic: normal tone and strength Integument: no rashes or jaundice UROLOGY TESTING Renal ultrasound: Date: 10/09/24 Right kidney : Present Right renal length - cm: 10.6 Right hydronephrosis: No Right kidney other findings:: Renal Scarring Left kidney : Present Left renal length - cm: 12.5 Left hydronephrosis: No PVR: Large (234mL) UROLOGICAL DIAGNOSES Diagnosis: CIC;Incomplete emptying UROLOGICAL SURGICAL HISTORY None IMAGING I independently reviewed the following studies from [facility]. Renal Ultrasound 10/09/2024 CHART REVIEW In preparation for the care of this patient, I have independently reviewed the past medical recordsavailable to me at the time of the visit which included both [facility] recordsand outside facilities. I have reviewed the nursing notes, vital signs, interval history, allergies, medical and surgical history, and current medications. VISIT DIAGNOSIS: 1. Anorectal malformation 2. Incomplete defecation 3. Incomplete emptying of bladder ASSESSMENT Latonya Rodarte was seen today by our urology team, as part of our collaborative [facility] center for her annual evaluation. Kenya is a 39yo female with a history significant for ARM and incomplete bladder emptying whom is overall doing well from a urological perspective with valsava voiding and intermittent urethral catheterizations. Following recent conception, Latonya has felt the need to increase the frequency of CICs to twice daily to completely empty her bladder, though denies any additional urological complaints inclusive of incontinence, frequency, urgency, or dysuria. A renal ultrasound completed today demonstrates stability in size discrepancy of a smaller right kidney secondary to priorscarring; there is no evidence of hydronephrosis or additional concern. However, following a void, Latonya did have a significant PVR of 234mL. We reviewed the importance of ensuring the bladder is emptied, especially during , to prevent any urinary retention. We discussed that this means that Latonya may need to increase the frequency of CICs in addition to timed voiding to ensure complete bladder emptying. We also reviewed the importance of prompt recognition and treatment of urinary tractinfections. At this time, we will plan to see Latonya back in clinic in 1 year for an annual assessment with a renal ultrasound. PLAN - Continue timed voiding every 2-3 hours - Continue CIC per urethra at least twice daily; increases frequency as needed to ensure complete bladder emptying while - Prompt recognition and treatment of UTIs - Return to clinic (URO JERRI) in 1 year with a IRENA Steiner- Pediatric Nurse Practitioner Urology and Gynecology Team [facility] * Manuel Sorto DO - 10/09/2024 10:00 AM EDT Informant: patient HPI 39 yo female from [place], [place] () with ARM (rectovaginal) s/p cutback anoplasty and henson who wasreferred to us for help with: Anorectal Malformation (ARM) anatomy evaluation and Leaking henson and bowel management. Spine/Sacrum: History of tethered cord that was repaired. 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 Had the Henson [place] [address] Gutiérrez, unknown if a plication was placed. After the henson was placed, was able to have a flush and better quality of life. Didn't have any issues with catheter placement, did not have any leakage. Started to have issues Jul 2010, had to use a smaller catheter size. Had a revision by Brock in 2010 and catheter, using a 12F catether. Then started having trouble again in September 2019. Lived in [facility] in [place] was directed to Dr. Beck in January of 2020 due to fertility issues with wanting to get by Dr. Sebastian in [place]. Was having trouble getting catheter in was using a 12F. Was having to lay down to put the catheter in, did not have any is sues with leaking at that time. Revision 05/[address] Marlon Beck in conjunction with gynecology. [employer] couldn't get to left sided fallopian tube due to scar tissue, could only ligate the right fallopian tube. Her was told that they made the henson opening bigger. 14F catheter was used in the henson site. Was complicated by readmission to the ED after completing a henson flush and leaking from the hesnon site. She then had this complicated by a wound infection readmitted to [facility] with a midline incisional wound infection, stool was leaking from the midline wound, then completed dakins for 1 month. 14F catheter was removed. Catheter that is now used is 14F tubing for intermittent cathing. Patient completed remote BMP on November 2020. Finished the week on once daily henson flushes 450 mL ofsaline and 30 mL of glycerin. (12/23/2020) telehealth for 1 month follow up after BMP week. Patient states that she has been doing better overall. Her current bowel regimen is 450 saline and 30 ml glycerin. The patient sit time hascontinued around 1 hour and 15 minutes. She is still having episodes where she will not feel empty and will have to come back to allow the remainder of the flush out. She is still experiencing leaking from her mini-alex tube in her Henson site. Updates since last visit: 12/01/2021 -PFPT: referral for closer to [facility] to help to decrease sit times -continue 450 mL NS + 30 mL glycerin + add castile soap 1 packet 9 grams to help decrease sit times -follow up in 1 month with KUB to see if sit times improved Patient presents on 04/10/2024 in clinic for annual visit. Her current bowel regimen is once daily henson flushes with 500 mL of water, 30 mL of glycerin, and 9 mL of castile soap. Performed in the evenings. Having good output with flushes with no bowel accidents. Sitting around one hour. Mini ALEX tube that was in tract was in there for two years. Patient states she was unaware it needed to be changed more frequently. She had an older tube at home that she replaced into the tract herself. She states if she does not have a button device in the tract it will leak stool and mucus constantly. Current tube size in tract is mini-ALEX 14 FR 6.5 cm. Changes a gauze once per day around the mini-alex has more leakage skin is irritated from the tape. Imaging: Hypothyroidism diagnosed 2021 Bowel habits: daily flushes 500 water + 30 glycerin + 9 castile soap Accidents: infrequent smears in betwee, no accidents about 1 hr after the flush Fiber denies Sit time: 45-60 minutes Blood in stool: denies, had 1 x with blood on toilet paper a few weeks ago Pain during stooling: denies Water intake: 90 oz water : I have reviewed the above information as documented by the nurse and agree with the findings. Past Medical History She has a past medical history of ADHD, Anemia, Anorectal malformation, Anxiety, Depression, Fecal incontinence, Generalized abdominal pain, History of tethered spinal cord, Kidney stones, Malrotation of kidney, Pelvic peritoneal adhesions, female, Uterus didelphys, UTI (urinary tract infection), Vaginal septum, and VUR (vesicoureteric reflux). Past Surgical History She has a past surgical history that includes hx MACE stoma revision (11/01/2010); EUA and dilationof rectovaginal fistula (1986); hx exam under anesthesia (1986); Modified cutback anoplasty (1986); bowel resection (1989); Tethered cord repair (1999); Henson and bilateral ureteral reimplant (06/18/1999); Henson revision for stenosis (11/01/2010); vaginal septum resection (2015); Inspection of Mullerian structures (08/28/2019); and Henson revision, fallopian tube ligation and pelvic CIERA (05/20/2020). Family History Family Medical History None Vitals: 10/09/24 0943 BP: (!) 113/54 Pulse: 81 Weight: 74.6 kg (164 lb 7.4 oz) Height: 162.6 cm (64) Review of Systems Constitutional: Negative for chills, fatigue, fever and unexpected weight change. Cardiovascular: Negative for chest pain. Gastrointestinal: Positive for constipation. Negative for abdominal distention, abdominal pain, anal bleeding, blood in stool, diarrhea, nausea, rectal pain and vomiting. Endocrine: Negative for cold intolerance and heat intolerance. Genitourinary: Negative for difficulty urinating, dyspareunia and dysuria. Musculoskeletal: Negative for arthralgias, back pain and gait problem. Skin: Negative for color change and pallor. Allergic/Immunologic: Negative for environmental allergies and food allergies. Neurological: Positive for headaches. Negative for dizziness and light-headedness. Psychiatric/Behavioral: Negative for agitation and behavioral problems. CHART REVIEW I reviewed previous information from other specialties/institutions. 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 HENT: Head: Normocephalic. Nose: Nose normal. Cardiovascular: Rate and Rhythm: Normal rate. Pulses: Normal pulses. Pulmonary: Effort: Pulmonary effort is normal. Abdominal: General: Abdomen is flat. Bowel sounds are normal. There is no distension. Palpations: There is no mass. Tenderness: There is no abdominal tenderness. Hernia: No hernia is present. Skin: General: Skin is warm. Capillary Refill: Capillary refill takes less than 2 seconds. Neurological: General: No focal deficit present. Mental Status: She is alert. Psychiatric: Mood and Affect: Mood normal. Behavior: Behavior normal. Thought Content: Thought content normal. Visit Diagnosis: No diagnosis found. Assessment 38 year old female from [place], [place] () with ARM (rectovaginal) s/p cutback anoplasty and henson who was referred to us for help with: Anorectal Malformation (ARM) anatomy evaluation and Leaking henson and bowel management. Patient presents on 04/10/2024 in clinic for annual visit. Her current bowel regimen is once daily henson flushes with 500 mL of water, 30 mL of glycerin, and 9 mL of castile soap. Doing well on oncedaily flushes with good output and no bowel accidents. Patient is still working on family planning and IVF treatment. Once finished with this she would like to consider surgical options for henson because she does not want a tube in her abdomen daily. Plan on seeing patient back in 6 months to exchange tube and see urology. Patient in agreement with plan of care. Independent review of abdominal XR reveals a moderate amount of stool within the ascending and transverse colon. Minimal stool throughout the rest of the colon. Plan -IR exchange today, went well with Mini-ALEX -continue 500 mL tap water + 30 mL glycerin + 9 mL castile soap -we discussed recommendation for vs vaginal delivery, recommendation for to preserve sphincter function -return to care after delivery Jun 2025 Manuel Sorto DO, FACS, FASCRS, MS Production Quality Manager [facility] (p) [phone] 35 minutes were spent by the Attending (precepting physician) or Advanced Practice Provider time inthe care of this patient. This includes face to face time and non face to face including the following: Preparing to see the patient (review of tests) Obtaining and/or reviewing separately obtained history Counseling and educating the patient/family/caregiver Ordering medications, tests, or procedures Referring/communicating with other health childcare aide Independently interpreting results and communicating results to the patient/family/caregiver Care-coordination * Raquel Lainez MD - 10/09/2024 10:00 AM EDT PEDIATRIC & ADOLESCENT GYNECOLOGY: NEW PATIENT VISIT PATIENT: Latonya Rodarte : 1985 CC: ARM and counseling HPI: Latonya Rodarte is a 39 year female who presents with with herself today to CCPR clinic to see Dr. Sorto. I was asked to see her as she is recently . Pt is with oocyte donor and IVF. She has an TVS at 5+ weeks which was reassuring. Some spotting. She has another TVS scheduled for Sunday. Pt has a repaired rectovaginal fistula. Currently she has good continence which she values highly. She uses her henson for flushes. No urinary complaints--has had Utis. No maternal cardiac anomalies. 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 This is associated with malpresentation and delivery. 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 Pt has a history of tethered cord: d/w pt need for an anesthesia consult at [facility] to assess for regional anesthesia at the time of delivery--determine whether anesthesia would want any recent imaging of her spine to assess feasibility. D/w pt large series of patients with ARM and reported outcomes; Most common complication was UTI--encouraged pt to get urine cs done each trimester and treat positive cultures even if asymptomatic. Mode of delivery: d/w pt medical literature is limited: all types of deliveries are reported. Pt has excellent fecal continence and does not want to risk any damage to her pelvic floor at time of delivery--had d/w Dr. Sorto and wants to pursue elective prior to labor. D/w pt protecting her henson at the time of any ab surgery (including ) is important. Encouraged her to d/w her delivering OB having general surgeon familiar with henson available. OBSTETRICAL HISTORY: Currently 7 weeks --USN Sunday. PAST MEDICAL HISTORY: Past Medical History: Diagnosis Date ADHD Anemia Anorectal malformation Rectovaginal Fistula Anxiety Depression Fecal incontinence Generalized abdominal pain History of tethered spinal cord Kidney stones Bilateral Malrotation of kidney Pelvic peritoneal adhesions, female Uterus didelphys UTI (urinary tract infection) Vaginal septum VUR (vesicoureteric reflux) Bilateral PAST SURGICAL HISTORY: Past Surgical History: Procedure Laterality Date BOWEL RESECTION 1989 [facility] Unknown EUA and dilation of rectovaginal fistula 1986 for obstructive symptoms - Dr. Romero Negron, [facility] HX EXAM UNDER ANESTHESIA 1986 Dr. Donald Drew, [facility] hx MACE stoma revision 11/01/2010 Inspection of Mullerian structures 08/28/2019 Henson and bilateral ureteral reimplant 06/18/1999 Karen and Allyssa Henson revision for stenosis 11/01/2010 Dr. Jones, [facility] Henson revision, fallopian tube ligation and pelvic CIERA 05/20/2020 Modified cutback anoplasty 1986 Dr. Donald Drew, [facility] Tethered cord repair 1999 [facility] VAGINAL SEPTUM RESECTION 2015 SOCIAL HISTORY: Social History Socioeconomic History Marital status: Spouse name: Not on file Number of children: Not on file Years of education: Not on file Highest education level: Not on file Occupational History Not on file Tobacco Use Smoking status: Not on file Smokeless tobacco: Not on file Substance and Sexual Activity Alcohol use: Not on file Drug use: Not on file Sexual activity: Not on file Other Topics Concern Not on file Social History Narrative Not on file Social Drivers of Health Financial Resource Strain: Low Risk (04/10/2024) Overall Financial Resource Strain (CARDIA) Difficulty of Paying Living Expenses: Not hard at all Food Insecurity: No Food Insecurity (04/10/2024) Hunger Vital Sign Worried About Running Out of Food in the Last Year: Never true Ran Out of Food in the Last Year: Never true Transportation Needs: No Transportation Needs (04/10/2024) PRAPARE - Transportation Lack of Transportation (Medical): No Lack of Transportation (Non-Medical): No Housing Stability: Low Risk (04/10/2024) Housing Stability Vital Sign Unable to Pay for Housing in the Last Year: No Number of Places Lived in the Last Year: 1 Unstable Housing in the Last Year: No FAMILY HISTORY: No family history on file. ALLERGIES: Allergies Allergen Reactions Ampicillin Hives MEDICATIONS: Current Outpatient Medications Medication Sig Dispense Refill levothyroxine 75 mcg tablet Take 1 tablet by mouth once daily. no115/iron/folic acid ( 19 ORAL) Take 1 Application by mouth. glycerin 99.5 % topical solution 30 mL. For use during nightly antegrade enema TAKING WITH 500ML WATER 25/iron fum/folic/dha (-1 ORAL) Take by mouth. ergocalciferol, vitamin D2, (VITAMIN D ORAL) Take by mouth. castile soap packets for enema use Insert 1 Packet into rectum once daily. Add 1 packet daily to antegrade enema 30 Packet 11 sodium phosphates (FLEET ENEMA) 19-7 gram/118 mL rectal enema Insert into rectum once daily. 1.5 bottles in henson flush Indications: emptying of the bowel sodium chloride 0.9% irrigation soln 0.9 % irrigation irrigation 500 mL by Irrigation route once daily. No current facility-administered medications for this visit. REVIEW OF SYSTEMS: Unremarkable, except as noted in the history of present illness.. REVIEW OF PRIOR LABS / IMAGING: CT Abdomen Pelvis with IV Contrast Order: [id number] Addendum Addendum by Provider, [facility] [place]an on 05/24/2020 7:55 PM EST * * *Final Report* * * * * * SEE BOTTOM OF REPORT FOR ADDENDED TEXT * * * DATE OF EXAM: May 24 2020 6:45PM [facility] 0530 - CT ABD/PEL W IVCON / PROCEDURE REASON: Post operative complication suspected * * * * Physician Interpretation * * * * * * * * * * * * ORIGINAL REPORT * * * * * * * * EXAMINATION: CT ABDOMEN AND PELVIS WITH IV CONTRAST CLINICAL HISTORY: Postop day 4 status post exploratory laparotomy and MACE (Henson antegrade continence enema) revision, fallopian tube ligation, and intraoperative enterotomy repair presenting with severe abdominal pain and low-grade fever. TECHNIQUE: CT of the abdomen and pelvis was performed using standard technique, scanning from just above the dome of the diaphragm to the symphysis pubis. MQ: CTAP_3 Contrast: IV: 140 ml of Omnipaque 300 Oral: 900 ml of 50ML Omnipaque [address] Radiation dose: Integrated Dose-length product (DLP) for this visit = 464 mGy*cm. CT Dose Reduction Employed: Automated exposure control (AEC) COMPARISON: None. RESULT: Postoperative: * Russell catheter traverses the periumbilical pathway terminating in the cecum. * There is a small amount of gas and fluid adjacent to the anterior abdominal wall at the level of the umbilicus (for example 2:74). * Additional free appearing fluid and a small amount of gas is present in the right pelvis (2:2). * Perivesicular inflammatory changes, again with a small amounts of gas are present adjacent to the bladder. * Presacral gas and a small amount of fluid tracks around the inferior portion of the rectum (2:120-131). There is no drainable fluid collection. Liver: No mass. Biliary: No bile duct dilation. Gallbladder is unremarkable. Spleen: No mass. No splenomegaly. Pancreas: No mass or duct dilation. Adrenals: No mass. Kidneys: The kidneys enhance symmetrically. Focal cortical defect in the posterior aspect of the right upper pole is stable. Nonobstructing 0.5 cm interpolar right renal calculus is present. There is new bilateral hydroureteronephrosis to the level of the significantly distended urinary bladder. GI tract: No dilation or wall thickening. Oral contrast material has extended to the level of the cecum on the current study. No contrast extravasation. Lymph nodes: No abdominal or pelvic lymphadenopathy. Mesentery/Peritoneum: Small amount of free pelvic fluid as described above. No drainable fluid collection although small amount of partially loculated fluid may be present adjacent to the anterior abdominal wall at the level of the umbilicus (2:81), as noted above. Retroperitoneum: No mass. Vasculature: The celiac axis and SMA are patent. The portal vein and branches, splenic vein, SMV, and hepatic veins are patent. No abdominal aortic or iliac artery aneurysm. Pelvis: Markedly distended urinary bladder with perivesicular inflammatory changes, as noted. Small amounts of postoperative gas are present. Known uterus didelphys with partial visualization of both cavities. Bilateral small cystic lesions adjacent to the uterus likely represent the ovaries. Presacral gas and small amount of fluid without loculated collection extending along the distal rectum. Bones/Soft Tissues: Postoperative changes from prior midline incision. Lower thorax: Minimal left basilar atelectasis. English Faculty Member (topogram) images: No additional findings. IMPRESSION: NEW BILATERAL MODERATE HYDROURETERONEPHROSIS WITH SIGNIFICANTLY DILATED URINARY BLADDER COMPATIBLE WITH BLADDER OUTLET OBSTRUCTION. PRESACRAL GAS AND FLUID EXTENDING ALONG THE DISTAL RECTUM BEYOND THE EXPECTED LOCATION OF THE RECENT SURGERY RAISES THE POSSIBILITY OF DEVELOPING INFECTION. NO DRAINABLE FLUID COLLECTION. POSTOPERATIVE INFLAMMATORY CHANGES AND SMALL AMOUNTS OF FLUID AROUND THE PERIUMBILICAL MACE AND URINARY BLADDER. * * * * * * * * ADDENDUM #1 * * * * * * * * COMMUNICATION: Communicated with Dr. Beck on 05/24/2020 7:28 PM via verbal communication. Wafer Production Worker: NATACHA Transcribe Date/Time: May 24 2020 7:52P Dictated by : SVETA VALLECILLO MD This examination was interpreted and the report reviewed and electronically signed by: SVETA VALLECILLO MD on May 24 2020 7:38PM EST This document has been addended by: SVETA VALLECILLO MD on May 24 2020 7:53PM EST Exam End: 05/24/20 18:45 Specimen Collected: 05/24/20 18:45 Last Resulted: 05/24/20 19:40 PHYSICAL EXAM: BP (!) 113/54 Pulse 81 Ht 162.6 cm (64) Wt 74.6 kg (164 lb 7.4 oz) BMI 28.23 kg/m General: has no problems ASSESSMENT & PLAN: Latonya Rodarte is a 39 year female who presents with a recent after many years of trying! Counseling and action items outlined above. Raquel Lainez MD Pediatric & Adolescent Gynecology 10/09/2024 11:30 AM documented in this encounterNatZanesville City Hospital'[facility] [id number] Instructions* Patient Instructions* Jesse Edwards CPNP - 10/09/2024 10:00 AM EDT PATIENT INSTRUCTIONS - Colorectal: Follow up in June 2025 with an xray prior. - Urology: - Continue timed voiding every 2-3 hour during the day - Continue CIC per urethra at least twice daily; increase frequency as needed for urinary retention - Monitor closely for any symptoms of urinary tract infections - We will plan to see you annually with a renal ultrasound - Gynecology: - Congratulations on your ! We recommend close collaboration with your local OB - As you progress through your , our team is available for any questions or concerns! - We recommend urine cultures be completed each trimester with prompt treatment of asymptomatic bacteriuria - As a part of shared medical decision making, for preservation of urinary and bowel continence, werecommend a as a preferred mode of delivery - Due to your history of a tethered cord, we recommend a pre-delivery anesthesia consult to evaluate anesthesia management for delivery - We also recommend the collaboration of a general surgeon at the time of c- section for management of your [facility]: [employer] Educational Handouts/Orders Needed: none How to Reach CCPR General Questions: Please use [facility]'s [place] or call [phone]. We will respond to Tamago messages and voicemails by the end of the next business day. Urgent Concerns: Weekdays, 8 a.m. to 4:30 p.m. (EST), call [phone]. After hours and weekends, call [phone] and press 0 when prompted to reach our on-call team. SCHEDULING BLOCK documented in this encounterC[facility] [id number] Note PROCEDURE: US KIDNEY REASON FOR EXAM: Hx: anorectal malformation. Please assess kidneys and bladder. Obtain post-void images if patient of potty training age. If there is hydronephrosis present, please grade on UTD and SFU scales. ;Anorectal malformation COMPARISON: 08 September 2020 FINDINGS: LEFT renal length: 12.5 cm previously 12.2 Left renal volume 114.3 mL RIGHT renal length: 10.6 cm previously 10.2 Right renal volume 104.1 mL Bladder: The bladder is well distended. The bladder is normal. No distal ureteral dilatation is observed. Bladder emptying:Post void residual of approximately 234 ml LEFT KIDNEY: Normal renal parenchyma. No calcification. No hydronephrosis. RIGHT KIDNEY: Multifocal cortical thinning in the upper and lower poles.No calcification. No hydronephrosis. No abnormal pelvic free fluid.[facility] [id number] NotePROCEDURE: US KIDNEY REASON FOR EXAM: Hx: anorectal malformation. Please assess kidneys and bladder. Obtain post-void images if patient of potty training age. If there is hydronephrosis present, please grade on UTD and SFU scales. ;Anorectal malformation COMPARISON: 08 September 2020 FINDINGS: LEFT renal length: 12.5 cm previously 12.2 Left renal volume 114.3 mL RIGHT renal length: 10.6 cm previously 10.2 Right renal volume 104.1 mL Bladder: The bladder is well distended. The bladder is normal. No distal ureteral dilatation is observed. Bladder emptying:Post void residual of approximately 234 ml LEFT KIDNEY: Normal renal parenchyma. No calcification. No hydronephrosis. RIGHT KIDNEY: Multifocal cortical thinning in the upper and lower poles.No calcification. No hydronephrosis. No abnormal pelvic free fluid. IMPRESSION: 1. 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 2. Normal left kidney 3. No hydroureteronephrosis 4. Post void bladder residual volume. Interpreted by: Kiki Singh MD Signed by: Kiki Singh MD on 10/09/2024 8:51 AM Post void residualDorothea Dix HospitalionWilson Health10-29-2024 Telephone encounter Note* Telephone Encounter - Bernadette Morgan RN - 04/15/2024 2:29 PM EDT Images from the original note were not included. Fax received from [employer] stating they do not carry the Entra Ren Lagrange Bags, but do have the Mckesson Lagrange Bags. Also stated they do not have graduated cylinders. Will check with patient on this and fax back to [facility] at [phone] [facility]10-29-2024 Miscellaneous Notes* Telephone Encounter - Bernadette Morgan RN - 04/15/2024 2:29 PM EDT Images from the original note were not included. Fax received from [employer] stating they do not carry the Entra Ren Lagrange Bags, but do have the Mck[place]on Lagrange Bags. Also stated they do not have graduated cylinders. Will check with patient on this and fax back to [facility] at [phone] * Telephone Encounter - Lazara Brice RN - 04/13/2024 10:56 AM EDT Stomal length was measured at 6 cm. The stoma tract length measuring device and guidewire were removed. A Russell catheter tube with balloon inflated was utilized to occlude the external portion of the tract and contrast was injected. A fluoroscopic spot film was obtained with an external radiographic ruler in place. Using this method, the tract length was measured at 6.5 cm. A new 12-Mongolian, 6 cm in length mini Alex button tube was advanced into position. The retention balloon was inflated to 4 mL contrast/water mix. Final position is satisfactory and was confirmed by injecting contrast through the tube and obtaining a spot film. A 12 fr;, 6.0 cm shaft AMT Mini-Alex tube was placed by IR, but tract was measured as both a 6.0 cm and 6.5 cm length by 2 different methods. documented in this encounterMarietta [facility] Clinic10-27-2024 Telephone encounter Note* Telephone Encounter - Lazara Brice RN - 04/13/2024 10:56 AM EDT Stomal length was measured at 6 cm. The stoma tract length measuring device and guidewire were removed. A Russell catheter tube with balloon inflated was utilized to occlude the external portion of the tract and contrast was injected. A fluoroscopic spot film was obtained with an external radiographic ruler in place. Using this method, the tract length was measured at 6.5 cm. A new 12-Mongolian, 6 cm in length mini Alex button tube was advanced into position. The retention balloon was inflated to 4 mL contrast/water mix. Final position is satisfactory and was confirmed by injecting contrast through the tube and obtaining a spot film. A 12 fr;, 6.0 cm shaft AMT Mini-Alex tube was placed by IR, but tract was measured as both a 6.0 cm and 6.5 cm length by 2 different methods. [facility]10-27-2024 History of Present illness Narrative* Lazara Brice RN - 04/13/2024 10:24 AM EDT Images from the original note were not included. New DME orders faxed to [facility]. Confirmation received. documented in this [facility]10-24-2024 Procedure note* Radiology Note - Tim Gonzalez - 04/10/2024 2:10 PM EDT Patient presents to IR with cecostomy in pipestone. Dr. Jo to remove that tube. [facility]10-24-2024 Miscellaneous Notes* Radiology Note - Tim Gonzalez - 04/10/2024 2:10 PM EDT Patient presents to IR with cecostomy in pipestone. Dr. Jo to remove that tube. documented in this [facility]10-24-2024 History of Present illness Narrative* Andres Fitzgerald APN - 04/10/2024 10:00 AM EDT Images from the original note were not included. Informant: Pardeep Nelson is a 38 year old female from [place], [place] () with ARM (rectovaginal) s/p cutback anoplasty and henson who was referred to us for help with: Anorectal Malformation (ARM) anatomy evaluation and Leaking henson and bowel management. Spine/Sacrum: History of tethered cord that was repaired. 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 Had the Henson [place] [address] Gutiérrez, unknown if a plication was placed. After the henson was placed, was able to have a flush and better quality of life. Didn't have any issues with catheter placement, did not have any leakage. Started to have issues Jul 2010, had to use a smaller catheter size. Had a revision by Brock in 2010 and catheter, using a 12F catether. Then started having trouble again in September 2019. Lived in [facility] in [place] was directed to Dr. Beck in January of 2020 due to fertility issues with wanting to get by Dr. Sebastian in [employer]. Was having trouble getting catheter in was using a 12F. Was having to lay down to put the catheter in, did not have any is sues with leaking at that time. Revision 05/[address] Marlon Beck in conjunction with gynecology. Training And Development Manager couldn't get to left sided fallopian tube due to scar tissue, could only ligate the right fallopian tube. Her was told that they made the henson opening bigger. 14F catheter was used in the henson site. Was complicated by readmission to the ED after completing a henson flush and leaking from the henson site. She then had this complicated by a wound infection [facility] with a midline incisional wound infection, stool was leaking from the midline wound, then completed dakins for 1 month. 14F catheter was removed. Catheter that is now used is 14F tubing for intermittent cathing. Patient completed remote BMP on November 2020. Finished the week on once daily henson flushes 450 mL ofsaline and 30 mL of glycerin. (12/23/2020) telehealth for 1 month follow up after BMP week. Patient states that she has been doing better overall. Her current bowel regimen is 450 saline and 30 ml glycerin. The patient sit time hascontinued around 1 hour and 15 minutes. She is still having episodes where she will not feel empty and will have to come back to allow the remainder of the flush out. She is still experiencing leaking from her mini-alex tube in her Henson site. Updates since last visit: 12/01/2021 -PFPT: referral for closer to [facility] to help to decrease sit times -continue 450 mL NS + 30 mL glycerin + add castile soap 1 packet 9 grams to help decrease sit times -follow up in 1 month with KUB to see if sit times improved Patient presents on 04/10/2024 in clinic for annual visit. Her current bowel regimen is once daily henson flushes with 500 mL of water, 30 mL of glycerin, and 9 mL of castile soap. Performed in the evenings. Having good output with flushes with no bowel accidents. Sitting around one hour. Mini ALEX tube that was in tract was in there for two years. Patient states she was unaware it needed to be changed more frequently. She had an older tube at home that she replaced into the tract herself. She states if she does not have a button device in the tract it will leak stool and mucus constantly. Current tube size in tract is mini-ALEX 14 FR 6.5 cm. Past Medical History She has a past medical history of ADHD, Anemia, Anorectal malformation, Anxiety, Depression, Fecal incontinence, Generalized abdominal pain, History of tethered spinal cord, Kidney stones, Malrotation of kidney, Pelvic peritoneal adhesions, female, Uterus didelphys, UTI (urinary tract infection), Vaginal septum, and VUR (vesicoureteric reflux). Past Surgical History She has a past surgical history that includes hx MACE stoma revision (11/01/2010); EUA and dilationof rectovaginal fistula (1986); hx exam under anesthesia (1986); Modified cutback anoplasty (1986); bowel resection (1989); Tethered cord repair (1999); Henson and bilateral ureteral reimplant (06/18/1999); Henson revision for stenosis (11/01/2010); vaginal septum resection (2015); Inspection of Mullerian structures (08/28/2019); and Henson revision, fallopian tube ligation and pelvic CIERA (05/20/2020). Family History Family Medical History None Vitals: 04/10/24 0940 BP: 112/68 Pulse: 71 Weight: 75.4 kg (166 lb 3.6 oz) Height: 165.9 cm (65.32) Review of Systems Constitutional: Negative for activity change, appetite change, fever and unexpected weight change. HENT: Negative for congestion, rhinorrhea and sore throat. Respiratory: Negative for cough. Gastrointestinal: Negative for abdominal distention, abdominal pain, blood in stool, constipation, diarrhea, nausea, rectal pain and vomiting. Skin: Negative for rash. Imaging I independently reviewed the following studies from [facility]. Xray abdomen supine CHART REVIEW In preparation for the care of this patient, I have independently reviewed the past medical recordsavailable to me at the time of the visit which included both [facility] recordsand outside facilities. I have reviewed the nursing notes, vital signs, interval history, allergies, medical and surgical history, and current medications. Physical Exam Vitals reviewed. Constitutional: General: She is not in acute distress. Appearance: Normal appearance. She is normal weight. She is not ill-appearing, toxic-appearing or diaphoretic. HENT: Nose: Nose normal. No congestion or rhinorrhea. Mouth/Throat: Mouth: Mucous membranes are moist. Pharynx: Oropharynx is clear. No oropharyngeal exudate or posterior oropharyngeal erythema. Cardiovascular: Rate and Rhythm: Normal rate and regular rhythm. Pulmonary: Effort: Pulmonary effort is normal. No respiratory distress. Breath sounds: Normal breath sounds. Abdominal: General: Abdomen is flat. Bowel sounds are normal. There is no distension. Palpations: Abdomen is soft. There is no mass. Tenderness: There is abdominal tenderness. There is no guarding or rebound. Hernia: No hernia is present. Comments: Mild tenderness with palpation in RLQ. Musculoskeletal: General: Normal range of motion. Cervical back: Neck supple. No tenderness. Lymphadenopathy: Cervical: No cervical adenopathy. Skin: General: Skin is warm. Findings: No rash. Neurological: Mental Status: She is alert. Psychiatric: Mood and Affect: Mood normal. Behavior: Behavior normal. Thought Content: Thought content normal. Judgment: Judgment normal. Visit Diagnosis: 1. Anorectal malformation 2. Other constipation 3. History of antegrade continence enema procedure Assessment Latonya is a 38 year old female from [place], [place] () with ARM (rectovaginal) s/p cutback anoplasty and henson who was referred to us for help with: Anorectal Malformation (ARM) anatomy evaluation and Leaking henson and bowel management. Patient presents on 04/10/2024 in clinic for annual visit. Her current bowel regimen is once daily henson flushes with 500 mL of water, 30 mL of glycerin, and 9 mL of castile soap. Doing well on oncedaily flushes with good output and no bowel accidents. Patient is still working on family planning and IVF treatment. Once finished with this she would like to consider surgical options for henson because she does not want a tube in her abdomen daily. Plan on seeing patient back in 6 months to exchange tube and see urology. Patient in agreement with plan of care. Independent review of abdominal XR reveals a moderate amount of stool within the ascending and transverse colon. Minimal stool throughout the rest of the colon. Plan - Continue with once daily henson flushes with 500 mL of water, 30 mL of glycerin, and 9 mL of castile soap - Go to IR today for tube exchange - Plan on clinic visit in 6 months for tube exchange and to meet with Uro - Please reach out sooner with questions or concerns documented in this encounterSelect [facility] [id number] Instructions* Patient Instructions* Deni Paul RN - 04/10/2024 10:00 AM EDT PATIENT INSTRUCTIONS - Colorectal: - Continue with once daily henson flushes with 500 mL of water, 30 mL of glycerin, and 9 mL of castile soap - Go to IR today for tube exchange - Plan on clinic visit in 6 months for tube exchange and to meet with Uro - Please reach out sooner with questions or concerns Homecare Company: [facility] Items Needed: Lagrange Bags, tube Adaptor (depending on what IR places today), Syringes, split gauze Educational Handouts/Orders Needed: will need spare Mini Alex ordered once we have new size from IR today How to Reach CCPR General Questions: Please use [facility] or call [phone]. We will respond to Tamago messages and voicemails by the end of the next business day. Urgent Concerns: Weekdays, 8 a.m. to 4:30 p.m. (EST), call [phone]. After hours and weekends, call [phone] and press 0 when prompted to reach our on-call team. SCHEDULING BLOCK CCPR Follow-up/Scheduling Information INSURANCE In Network LTFU TRACK Is patient on LTFU Track:Yes LTFU Track for:BMP BMP Date: 11/2020 LEVEL: 1 REASON FOR VISIT Skilled Nursing Follow-up for: [facility] Annual TYPE OF VISIT Clinic Visit SCHEDULE NEXT APPOINTMENT When should patient be scheduled: 6 months DIAGNOSIS ARM COLORECTAL PROVIDER Katie COLORECTAL PRE-VISIT TESTING ABD X-ray CONSULTS Consults with: Urology, Other (see comment) IR for mini alex exchange Urology Provider: [facility] Urology Pre-Visit Testing: CHARLES Urology tests that need Sedation: None SURGERY Is surgery needed? No documented in this encounterMarietta [facility]10-23-2024 Telephone encounter Note* Telephone Encounter - Marixa Hernandez - 04/09/2024 8:10 AM EDT [place] insurance is active and INN, blocks updated [facility]10-23-2024 Miscellaneous Notes* Telephone Encounter - Marixa Hernandez - 04/09/2024 8:10 AM EDT [place] insurance is active and INN, blocks updated documented in this encounterNatHigh[facility]10-22-2024 Telephone encounter Note* Telephone Encounter - Bernadette Morgan RN - 04/08/2024 4:14 PM EDT RN called patient and let her know that we would like her to take 2 capfuls of Miralax mixed in 12-16oz clear fluid daily, until she can get her tube changed on . RN then stated if she does not have a bowel movement with the Miralax/goes greater than 24 hours without a bowel movement, we would recommend that she administer OTC Fleet enema. Patient verbalized understanding with no additional questions. She did upload her insurance cards in Tam[place], so will have those processed and let her know if there are any issues. [facility]10-22-2024 Miscellaneous Notes* Telephone Encounter - Bernadette Morgan RN - 04/08/2024 4:14 PM EDT RN called patient and let her know that we would like her to take 2 capfuls of Miralax mixed in 12-16oz clear fluid daily, until she can get her tube changed on . RN then stated if she does not have a bowel movement with the Miralax/goes greater than 24 hours without a bowel movement, we would recommend that she administer OTC Fleet enema. Patient verbalized understanding with no additional questions. She did upload her insurance cards in Tam[place], so will have those processed and let her know if there are any issues. * Telephone Encounter - Bernadette Morgan RN - 04/08/2024 11:50 AM EDT CCPR Follow-up/Scheduling Information INSURANCE LTFU TRACK Is patient on LTFU Track:Yes LTFU Track for:BMP [facility] Date: 11/2020 LEVEL: 1 REASON FOR VISIT General Follow-up BMP Week: No TYPE OF VISIT Clinic Visit SCHEDULE NEXT APPOINTMENT When should patient be scheduled: Other (see comment) 04/08 DIAGNOSIS ARM COLORECTAL PROVIDER Pepe (JanG) COLORECTAL PRE-VISIT TESTING ABD X-ray IR for tube change at 1:30 (already scheduled) Bernadette to bring tubes to IR CONSULTS Consults with: None SURGERY Is surgery needed? No * Telephone Encounter - Berndaette Morgan RN - 04/08/2024 11:44 AM EDT RN called Tete in IR and she is able to get patient in for a tube change on at 1:30. Will have CLOTH EXAMINER MACHINE update order to reflect the correct way to measure henson track. Will bring down a coupledifferent mini alex button sizes for IR to use if needed, if not, gave permission for them to place a mariama-villagomez button. RN called patient and let her know that IR is scheduled for 1:30pm on . We will have her come for a clinic visit prior, at 10am with an abdominal x-ray prior. RN did tell patient that we would not feel comfortable with her using the tube currently without having a tube study to check placement. Patient is open to trying oral medications/rectal enemas, but would want to know what we suggest . She is next due for her flush tonight and typically does not go if her flush is not administer. Patient also mentioned Dr. Sorto wanted her to see Urology again, so wanted to know if she could seethem on or if she should wait until her next visit. RN to check with team and call patientback. * Telephone Encounter - Bernadette Morgan RN - 04/08/2024 10:45 AM EDT RN called patient back. She was last seen in clinic January 2022, which is when her tube was last changed. While at home, her balloon popped. She had a long tube at home that she had ordered as a back up and placed that in the henson track. She states the tube hangs off of her stomach, has a disc and a balloon that she inflates. She thought the tube was a g-tube. She is currently driving and unable to take a picture. Patient able to come in for a clinic visit on and IR appointment forthe tube to be replaced, if we can get this scheduled. RN told patient that we would be hesitant for her to use the current tube in place, as we do not know the length of it and where in the track the balloon was inflated. RN to update CLOTH EXAMINER MACHINE on situation and call IR to see about getting scheduled. Will call patient back once there's an update. Last changed in October From: [employer] <[email or web address]> Sent: Monday, April 08, 2024 9:55 AM To: Chito <[email or web address]> Subject: Message from Unknown sender ([id number]) Patient calling in letting us know the balloon to her mini-alex popped and her tube came out. From: Latonya Rodarte < > Sent: Monday, April 08, 2024 10:10 AM To: [facility] <[email or web address]> Subject: Mariama villagomez tube broke Hello, could I have someone call me back today? My tube just broke and fell out of my stomach. My name is Latonya Rodarte date of 1985 If I could have someone call me back [phone] documented in this encounterNationWilson Health10-22-2024 Telephone encounter Note* Telephone Encounter - Bernadette Morgan RN - 04/08/2024 11:50 AM EDT CCPR Follow-up/Scheduling Information INSURANCE LTFU TRACK Is patient on LTFU Track:Yes LTFU Track for:BMP BMP Date: 11/2020 LEVEL: 1 REASON FOR VISIT General Follow-up [facility] Week: No TYPE OF VISIT Clinic Visit SCHEDULE NEXT APPOINTMENT When should patient be scheduled: Other (see comment) 04/08 DIAGNOSIS ARM COLORECTAL PROVIDER Pepe (Marco Antonio) COLORECTAL PRE-VISIT TESTING ABD X-ray IR for tube change at 1:30 (already scheduled) Bernadette to bring tubes to IR CONSULTS Consults with: None SURGERY Is surgery needed? No [facility]10-22-2024 Telephone encounter Note* Telephone Encounter - Bernadette oMrgan RN - 04/08/2024 11:44 AM EDT RN called Tete in IR and she is able to get patient in for a tube change on at 1:30. Will have CLOTH EXAMINER MACHINE update order to reflect the correct way to measure henson track. Will bring down a coupledifferent mini alex button sizes for IR to use if needed, if not, gave permission for them to place a mariama-villagomez button. RN called patient and let her know that IR is scheduled for 1:30pm on . We will have her come for a clinic visit prior, at 10am with an abdominal x-ray prior. RN did tell patient that we would not feel comfortable with her using the tube currently without having a tube study to check placement. Patient is open to trying oral medications/rectal enemas, but would want to know what we suggest . She is next due for her flush tonight and typically does not go if her flush is not administer. Patient also mentioned Dr. Sorto wanted her to see Urology again, so wanted to know if she could seethem on or if she should wait until her next visit. RN to check with team and call patientback. [facility] [id number] Telephone encounter Note* Telephone Encounter - Bernadette Morgan RN - 04/08/2024 10:45 AM EDT RN called patient back. She was last seen in clinic January 2022, which is when her tube was last changed. While at home, her balloon popped. She had a long tube at home that she had ordered as a back up and placed that in the henson track. She states the tube hangs off of her stomach, has a disc and a balloon that she inflates. She thought the tube was a g-tube. She is currently driving and unable to take a picture. Patient able to come in for a clinic visit on and IR appointment forthe tube to be replaced, if we can get this scheduled. RN told patient that we would be hesitant for her to use the current tube in place, as we do not know the length of it and where in the track the balloon was inflated. RN to update CLOTH EXAMINER MACHINE on situation and call IR to see about getting scheduled. Will call patient back once there's an update. Last changed in October From: [employer] Sent: Monday, April 08, 2024 9:55 AM To: Chito Subject: Message from Unknown sender ([id number]) Patient calling in letting us know the balloon to her mini-alex popped and her tube came out. From: Latonya Rodarte Sent: Monday, April 08, 2024 10:10 AM To: [facility] Subject: Mariama villagomez tube broke Hello, could I have someone call me back today? My tube just broke and fell out of my stomach. My name is Latonya Rodarte date of 1985 If I could have someone call me back [phone] [facility] [id number] NoteHNO ID: [id number] Author: Mackenzie Duran MD Service: ? Author Type: Fellow Type: Progress Notes Filed: 02/07/2023 4:52 PM Note Text: [facility] Patient Care Conference Patient is a 37yo G0 with complex medical history and multiple surgeries now s/p multiple failed attempts at ovarian stimulation, most recently at the beginning of January 2023 with failed letrozole cycle. Two options were presented today. Option 1: as last effort on ovarian stimulation, can try clomid and gonadotropins to see response. 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 Patient will be presented with these options to move forward. Members of the [facility] staff, including attendings, fellows, APPs, embryology staff, and nursing were present at this meeting and were in agreement with the final recommendations. Mackenzie Duran MD PGY 6 Reproductive Endocrinology and Infertility FellowFlower Hospital08-23-2023 History of Present illness Narrative* Mackenzie Duran MD - 02/07/2023 4:43 PM EDT [facility] Patient Care Conference Patient is a 37yo G0 with complex medical history and multiple surgeries now s/p multiple failed attempts at ovarian stimulation, most recently at the beginning of January 2023 with failed letrozole cycle. Two options were presented today. Option 1: as last effort on ovarian stimulation, can try clomid and gonadotropins to see response. 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 Patientwill be presented with these options to move forward. Members of the [facility] staff, including attendings, fellows, APPs, embryology staff, and nursing were present at this meeting and were in agreement with the final recommendations. Mackenzie Duran MD PGY 6 Reproductive Endocrinology and Infertility Fellow documented in this encounterGreene Memorial Hospital08-07-2023 NoteHNO ID: [id number] Author: Freda Gerard RN Service: ? Author Type: ? Type: Progress Notes Filed: 01/22/2023 5:56 PM Note Text: The patient is here today for follicular ultrasound and blood work. The patient reports no problems or complaints. Ultrasound and blood will be reviewed by the physician, the flow sheet will be updated and instructions will be communicated to the patient. Patient did not stay to meet with nursing. Freda Gerard RN Called patient with recommendation to cancel cycle. Patient cancelled her appointment with Dr. Sebastian, she is not sure she wants to do donor eggs at this time. Advised her if she wants to go that route to call to set up an appointment with either Dr. Sebastian or Dr. Luke. She states understanding. Freda Gerard RN January 22, 2023 1:42 [facility]08-07-2023 History of Present illness Narrative* Freda Gerard RN - 01/22/2023 9:34 AM EDT The patient is here today for follicular ultrasound and blood work. The patient reports no problemsor complaints. Ultrasound and blood will be reviewed by the physician, the flow sheet will be updated and instructions will be communicated to the patient. Patient did not stay to meet with nursing. Freda Gerard RN Called patient with recommendation to cancel cycle. Patient cancelled her appointment with Dr. Sebastian, she is not sure she wants to do donor eggs at this time. Advised her if she wants to go that route to call to set up an appointment with either Dr. Sebastian or Dr. Luke. She states understanding. Freda Gerard RN January 22, 2023 1:42 PM documented in this encounterGreene Memorial Hospital07-31-2023 NoteHNO ID: [id number] Author: Freda Gerard RN Service: ? Author Type: ? Type: Progress Notes Filed: 01/15/2023 4:34 PM Note Text: Called patient with plan, take letrozole the next 4 days and return to clinic on 01/22. Patient states understanding, no further questions at this time. Freda Gerard RNFlower Hospital07-31-2023 History of Present illness Narrative* Freda Gerard RN - 01/15/2023 2:16 PM EDT Called patient with plan, take letrozole the next 4 days and return to clinic on 01/22. Patient states understanding, no further questions at this time. Freda Gerard RN * Aydee More RN - 01/15/2023 8:15 AM EDT The patient is here today for follicular ultrasound and blood work. The patient reports no problemsor complaints. Ultrasound and blood will be reviewed by the physician, the flow sheet will be updated and instructions will be communicated to the patient. Pt did not stay to meet with nursing. Aydee More RN documented in this encounterGreene Memorial Hospital07-31-2023 NoteHNO ID: [id number] Author: Aydee More RN Service: ? Author Type: ? Type: Progress Notes Filed: 01/15/2023 4:34 PM Note Text: The patient is here today for follicular ultrasound and blood work. The patient reports no problems or complaints. Ultrasound and blood will be reviewed by the physician, the flow sheet will be updated and instructions will be communicated to the patient. Pt did not stay to meet with nursing. Aydee More RNFlower Hospital07-28-2023 Miscellaneous Notes* Telephone Encounter - Freda Gerard RN - 01/12/2023 4:08 PM EDT Returned phone call. Left voicemail message advising to start letrozole Sunday, come in Sunday for baseline. Sent request for appointment Sunday at 7:30. Freda Gerard RN January 12, 2023 4:13 PM * Telephone Encounter - Ramila Dias - 01/12/2023 3:21 PM EDT Pt started her cycle today would like to discuss next steps, speaking with nurse freda documented in this encounterGreene Memorial Hospital06-29-2023 Miscellaneous Notes* Telephone Encounter - Freda Gerard RN - 12/14/2022 2:44 PM EDT Called patient to advise her we have sent letrozole to the pharmacy she requested. Patient states understanding. Freda Gerard RN December 14, 2022 2:45 PM * Telephone Encounter - Ramila Dias - 12/14/2022 12:58 PM EDT Pt would like her prescription sent to the [facility] [place] ,speaking with Nurse Freda documented in this encounterGreene Memorial Hospital06-27-2023 Miscellaneous Notes* Addendum Note - Adri Baires APRN.CNP - 12/12/2022 3:28 PM EDTAddended by: ADRI BAIRES on: 12/12/2022 03:28 PM Modules accepted: Orders * Addendum Note - Freda Gerard RN - 12/12/2022 3:22 PM EDTAddended by: FREDA GERARD RN on: 12/12/2022 03:22 PM Modules accepted: Orders * Telephone Encounter - Freda Gerard RN - 12/12/2022 9:40 AM EDT Returned phone call. Patient would like to try one more time, she is interested in doing the same cycle she did in July. Advised her I will reach out to Dr. Sebastian and get back to her. Patient states understanding. Freda Gerard RN December 12, 2022 9:[address] Sebastian, he is ok with one more cycle. New episode created, patient will call with late December/January period to baseline. Freda Gerard RN December 12, 2022 3:22 PM * Telephone Encounter - Ramila Dias - 12/12/2022 9:32 AM EDT Pt would like to speak with Nurse Freda in regards to her cycle , please follow up documented in this encounterGreene Memorial Hospital06-08-2023 NoteHNO ID: [id number] Author: Freda Gerard RN Service: ? Author Type: ? Type: Progress Notes Filed: 11/25/2022 10:33 AM Note Text: Called patient with recommendation to cancel this cycle. Advised patient Dr. Sebastian wants to follow up with patient. Patient states understanding, agrees to plan, patient is understandably disappointed and sad. Patient asking if he is going to recommend donor eggs, advised that is a possibility. Patient is going to speak with her , in the meantime requesting an appointment with Dr. Sebastian. Chart sent to scheduling. Freda Gerard RN November 23, 2022 3:11 [facility]06-08-2023 History of Present illness Narrative* Freda Gerard RN - 11/23/2022 3:02 PM EDT Called patient with recommendation to cancel this cycle. Advised patient Dr. Sebastian wants to followup with patient. Patient states understanding, agrees to plan, patient is understandably disappointed and sad. Patient asking if he is going to recommend donor eggs, advised that is a possibility. Patient is going to speak with her , in the meantime requesting an appointment with Dr. Sebastian.Chart sent to scheduling. Freda Gerard RN November 23, 2022 3:11 PM * Aydee More RN - 11/23/2022 8:01 AM EDT The patient is here today for follicular ultrasound and blood work. The patient reports no problemsor complaints. Ultrasound and blood will be reviewed by the physician, the flow sheet will be updated and instructions will be communicated to the patient. Pt did not stay to meet with nursing. Aydee More RN documented in this encounterGreene Memorial Hospital06-08-2023 NoteHNO ID: [id number] Author: Aydee More RN Service: ? Author Type: ? Type: Progress Notes Filed: 11/25/2022 10:33 AM Note Text: The patient is here today for follicular ultrasound and blood work. The patient reports no problems or complaints. Ultrasound and blood will be reviewed by the physician, the flow sheet will be updated and instructions will be communicated to the patient. Pt did not stay to meet with nursing. Aydee More RNFlower Hospital06-07-2023 NoteHNO ID: [id number] Author: Freda Gerard RN Service: ? Author Type: ? Type: Progress Notes Filed: 11/22/2022 2:02 PM Note Text: The patient is here today for follicular ultrasound and blood work. The patient reports no problems or complaints. Ultrasound and blood will be reviewed by the physician, the flow sheet will be updated and instructions will be communicated to the patient. Patient did not stay to meet with nursing. Freda Gerard RN Called patient with plan. Start ganirelix today, continue follistim and return to clinic tomorrow. Patient states understanding, request sent for appointment tomorrow at 0730. Freda Gerard RN November 22, 2022 2:01 [facility]06-07-2023 History of Present illness Narrative* Freda Gerard RN - 11/22/2022 10:10 AM EDT The patient is here today for follicular ultrasound and blood work. The patient reports no problemsor complaints. Ultrasound and blood will be reviewed by the physician, the flow sheet will be updated and instructions will be communicated to the patient. Patient did not stay to meet with nursing. Freda Gerard RN Called patient with plan. Start ganirelix today, continue follistim and return to clinic tomorrow. Patient states understanding, request sent for appointment tomorrow at 0730. Freda Gerard RN November 22, 2022 2:01 PM documented in this encounterGreene Memorial Hospital06-06-2023 Miscellaneous Notes* Telephone Encounter - Freda Gerard RN - 11/21/2022 3:22 PM EDT Patient has appointment scheduled tomorrow at 7:45. Freda Gerard RN November 21, 2022 3:23 PM * Telephone Encounter - Felicia Almaguer - 11/21/2022 11:01 AM EDT Patient called did not see appt for tomorrow, scheduled monitoring appt for her. documented in this encounterGreene Memorial Hospital06-01-2023 History of Present illness Narrative* Freda Gerard RN - 11/16/2022 2:16 PM EDT Called patient with plan per flowsheet, start letrozole, start FSH day 5, return to clinic 11/22. Patient states understanding, no further questions at this time. Detailed ChemiSensehart message sent, requestsent for appointment 11/22 at 0700 Freda Gerard RN November 16, 2022 2:21 PM documented in this encounterGreene Memorial Hospital05-31-2023 Miscellaneous Notes* Addendum Note - Wil Luke MD - 11/15/2022 3:22 PM EDTAddended by: WIL LUKE on: 11/15/2022 03:22 PM Modules accepted: Orders documented in this encounterGreene Memorial Hospital05-31-2023 History of Present illness Narrative* Freda Gerard RN - 11/15/2022 12:32 PM EDT The patient is here today for follicular ultrasound and blood work. The patient reports no problemsor complaints. Ultrasound and blood will be reviewed by the physician, the flow sheet will be updated and instructions will be communicated to the patient. Patient did not stay to meet with nursing. Freda Gerard RN Called patient with plan, will add on P4 today, call tomorrow with plan. Patient states understanding, request sent for appointment on 11/16. Freda Gerard RN November 15, 2022 3:50 PM documented in this encounterGreene Memorial Hospital05-17-2023 Miscellaneous Notes* Telephone Encounter - Freda Gerard RN - 11/01/2022 11:55 AM EDT Returned phone call. Patient states she did not need a call back, she was only advising she cancelled appointment with Dr. Sebastian. Patient will call with her period to start ministim. Freda Gerard RN November 01, 2022 11:56 AM * Telephone Encounter - Ramila Dias - 10/31/2022 3:52 PM EDT Pt cancelled 11/01 apt with tessa , pt didn't see the reason of apt , speaking with nurse freda documented in this encounterGreene Memorial Hospital05-02-2023 Miscellaneous Notes* Telephone Encounter - Freda Gerard RN - 10/17/2022 2:32 PM EDT Returned phone call. Patient states [facility] does not have Cl[facility] and is not sure when theywill get them. Called pharmacy, pharmacist confirms they do not have Clomid at this time, they have ordered it buthe is not sure when they will arrive. Called patient back, advised her we can either try another pharmacy or use letrozole instead. Patient would prefer letrozole. Ordered to [facility]. Patient will call with her period. Freda Gerard RN October 17, 2022 2:36 PM * Telephone Encounter - Kasia Lund Pss - 10/17/2022 9:13 AM EDT Pt states meds are on back order documented in this encounterGreene Memorial Hospital03-23-2023 History of Present illness Narrative* Freda Gerard RN - 09/07/2022 1:54 PM EDT Called patient, left voicemail message that Dr. Sebastian recommends dropping this cycle, and he wouldlike to see her to discuss next steps. Advised her I will call her back in a few minutes to speak in person as well. Freda Gerard RN September 07, 2022 1:56 PM Called patient back, she would like to move forward with another cycle. Per Dr. Sebastian this is ok, but he would like to have a meeting with her as well. She will call to set up an appointment, but will also go through a ministim cycle in the meantime. She may take a month off, I will set up next cycle for her in the meantime. Freda Gerard RN September 07, 2022 3:09 PM * Soren Sebastian MD - 09/07/2022 10:30 AM EDT Patient here for follicle monitoring and/or endometrial assessment, via ultrasound, and lab testing. See imaging documentation and [facility] cycle flow sheet for final report and plan. Soren Sebastian MD * Aydee More RN - 09/07/2022 7:56 AM EDT The patient is here today for follicular ultrasound and blood work. The patient reports no problemsor complaints. Ultrasound and blood will be reviewed by the physician, the flow sheet will be updated and instructions will be communicated to the patient. Pt did not stay to meet with nursing. Aydee More RN documented in this encounterGreene Memorial Hospital03-20-2023 History of Present illness Narrative* Freda Gerard RN - 09/04/2022 8:48 AM EDT The patient is here today for follicular ultrasound and blood work. The patient reports no problemsor complaints. Ultrasound and blood will be reviewed by the physician, the flow sheet will be updated and instructions will be communicated to the patient. Patient did not stay to meet with nursing. Freda Gerard RN Called patient with plan, continue with same doses and return to clinic on 09/07 for scan and bloodwork. Patient states understanding. No questions at this time, request sent for appointment on 09/07 between 7-8. Freda Gerard RN September 04, 2022 2:24 PM documented in this encounterGreene Memorial Hospital03-14-2023 History of Present illness Narrative* Freda Gerard RN - 08/29/2022 1:58 PM EDT Called patient with plan per flow sheet. Start injections tomorrow, return to clinic on Monday 09/04. Patient states understanding, detailed mychart message sent. No further questions at this time, request sent for appointment 09/04. Freda Gerard RN August 29, 2022 2:01 PM * Laya Lentz RN - 08/29/2022 7:57 AM EDT The patient is here today for follicular ultrasound and blood work. The patient reports no problemsor complaints. Ultrasound and blood will be reviewed by the physician, the flow sheet will be updated and instructions will be communicated to the patient. Pt did not stay to meet with nursing. Laya Lentz RN August 29, 2022 7:57 AM documented in this encounterGreene Memorial Hospital03-13-2023 Miscellaneous Notes* Telephone Encounter - Freda Gerard RN - 08/28/2022 4:47 PM EDT Returned phone call. Period started today, she will come in to baseline tomorrow at 0715. She called [facility] pharmacy today, medication will be delivered tomorrow or Sunday. Request sent for appointment tomorrow. Freda Gerard RN August 28, 2022 4:49 PM * Telephone Encounter - Felicia Ricketts Pss - 08/28/2022 10:07 AM EDT Patient states cycle should start tomorrow and she has not heard from pharmacy, please call patient. documented in this encounterGreene Memorial Hospital03-13-2023 Miscellaneous Notes* Telephone Encounter - Freda Gerard RN - 08/28/2022 11:25 AM EDT Returned phone call. Left voicemail advising I have ordered medications to [facility], call with period and she will come in for natural start. Advised to call back with questions. Freda Gerard RN * Telephone Encounter - Ramila Dias - 08/25/2022 2:41 PM EST Pt paid for ivf , will need prescriptions filled , please follow up with pt for next steps. Speaking with Nurse Barba documented in this encounterGreene Memorial Hospital03-08-2023 Miscellaneous Notes* Telephone Encounter - Ginny Jackson - 08/23/2022 2:57 PM EST Sent an e-mail to confirm credit pt has left on her account. * Telephone Encounter - Freda Gerard RN - 08/23/2022 2:30 PM EST Returned phone call, patient would like to proceed with another IVF. Dr. Sebastian had discussed another stimulation with her with her last appointment with him. The protocol for this time will be antagonist with full doses. Will order medications to [facility] pharmacy, sent chart to financial for clearance. She will be a natural start, will schedule once patient pays. Freda Gerard RN August 23, 2022 2:42 PM * Telephone Encounter - Kasia Lund Pss - 08/22/2022 3:51 PM EST Pt wants to know if she can order her injections documented in this encounterGreene Memorial Hospital03-02-2023 History of Present illness Narrative* Khang Mercado - 08/17/2022 10:02 AM EST IVF freeze all cycle. No embryo was frozen. Khang Mercado August 17, 2022 10:02 AM documented in this encounterGreene Memorial Hospital03-02-2023 Miscellaneous Notes* Telephone Encounter - Khang Mercado - 08/17/2022 8:43 AM EST Patient called by lab to give update on embryo. Let patient know that her one embryo has stop developing. Nothing was frozen from this cycle. Khang Mercado August 17, 2022 8:43 AM documented in this encounterGreene Memorial Hospital03-01-2023 Miscellaneous Notes* Telephone Encounter - Khang Mercado - 08/16/2022 8:52 AM EST Patient called by lab to give update on embryos. No embryo frozen on day 5. 1 embryo is at morula with fluid stage. Khang Mercado August 16, 2022 8:52 AM * Telephone Encounter - Sasha Stoddard - 08/15/2022 8:44 AM EST Patient called by lab to give update on embryos. Let her know embryo is >10. Sasha Stoddard August 15, 2022 8:44 AM documented in this encounterGre[facility] History of Present illness Narrative* MAXIMO Smyth Tech - 08/11/2022 12:33 PM EST Retrieval procedure performed. Detailed notes can be found in the paper chart in the [facility] Office. MAXIMO Smyth Tech documented in this encounterGreene [facility] Hospital02-24-2023 Note* [facility] ULTRASOUND GUIDED PROCEDURE (08/11/2022 4:44 AM EST) Anatomical Region Laterality Modality Other 08/11/2022 4:44 AM EST Narrative 08/11/2022 12:22 PM EST Indication Retrieval Impression Follicles noted Recommendations Continue with retrieval History General History Other: known didelphic uterus Method Transvaginal ultrasound examination Performed By: Read By: Wil Luke M.D. Mackenzie Duran MD [facility]02-22-2023 History of Present illness Narrative* Freda Gerard RN - 08/09/2022 2:01 PM EST Called patient with trigger plan. Patient will trigger tonight at 11PM, labs tomorrow, retrieval Sunday. Patient states understanding, will come in at 9:30 for a scan before retrieval. Appointment request sent for labs tomorrow. No further questions at this time, detailed [employer] message sent. Freda Gerard RN August 09, 2022 2:07 PM * Laya Lentz RN - 08/09/2022 7:51 AM EST Patient here today for follicular ultrasound and blood work. The patient reports no problems or complaints. Ultrasound and blood will be reviewed by the physician, the flow sheet will be updated and instructions will be communicated to the patient. Pt did not stay to meet with nursing. Laya Lentz RN August 09, 2022 7:52 AM documented in this encounterGreene [facility]02-21-2023 History of Present illness Narrative* Essence Adkins RN - 08/08/2022 8:04 AM EST The patient is here today for follicular ultrasound and blood work. The patient reports no problemsor complaints. Ultrasound and blood will be reviewed by the physician, the flow sheet will be updated and instructions will be communicated to the patient. Patient stayed to meet with nursing. Essence Adkins RN RN called patient, name and verified. Plan given for IVF cycle per physician, see flowsheet fordetails. [employer] message sent. Instructions given. Patient denies any questions or concerns. Message sent to scheduling pool for next appt. Essence Adkins RN August 08, 2022 1:21 PM documented in this encounterGreene [facility]02-20-2023 Miscellaneous Notes* Addendum Note - Ysabel Scott MD - 08/07/2022 3:36 PM ESTAddended by: YSABEL SCOTT on: 08/07/2022 03:36 PM Modules accepted: Orders * Addendum Note - Freda Gerard RN - 08/07/2022 1:55 PM ESTAddended by: FREDA GERARD RN on: 08/07/2022 01:55 PM Modules accepted: Orders documented in this encounterGreene [facility]02-20-2023 History of Present illness Narrative* Freda Gerard RN - 08/07/2022 11:57 AM EST The patient is here today for follicular ultrasound and blood work. The patient reports no problemsor complaints. Ultrasound and blood will be reviewed by the physician, the flow sheet will be updated and instructions will be communicated to the patient. Freda Gerard RN Called patient with plan, come in tomorrow for scan and blood work. Patient states understanding, no further questions at this time. Freda Gerard RN August 07, 2022 1:49 PM documented in this encounterGreene [facility]02-20-2023 History of Present illness Narrative* Aiyana Harman APRN.CNP - 08/07/2022 7:28 AM EST orders filed for labs today. Aiyana Harman APRN.CNP August 07, 2022 7:30 AM documented in this encounterGreene [facility] Hospital02-16-2023 Miscellaneous Notes* Telephone Encounter - Freda Gerard RN - 08/03/2022 1:58 PM EST Returned phone call, left voicemail message I will schedule her for Sunday around 7. No need to call back unless she has questions. Freda Gerard RN August 03, 2022 1:59 PM * Telephone Encounter - Ramila Dias - 08/03/2022 1:33 PM EST Pt would like to confirm she would like to move forward with mondays appointment , speaking with nurse freda documented in this encounterGreene [facility] Hospital02-16-2023 History of Present illness Narrative* Aydee More RN - 08/03/2022 7:31 AM EST The patient is here today for follicular ultrasound and blood work. The patient reports no problemsor complaints. Ultrasound and blood will be reviewed by the physician, the flow sheet will be updated and instructions will be communicated to the patient. Pt did not stay to meet with nursing. Aydee More RN documented in this encounterGreene [facility]02-15-2023 History of Present illness Narrative* Freda Gerard RN - 08/02/2022 1:56 PM EST The patient is here today for follicular ultrasound and blood work. The patient reports no problemsor complaints. Ultrasound and blood will be reviewed by the physician, the flow sheet will be updated and instructions will be communicated to the patient. Patient stayed to meet with nursing. Freda Gerard RN Called patient with plan, come in tomorrow for scan and bloodwork. Patient states understanding, request sent for appointment for tomorrow at 7:00. Freda Gerard RN August 02, 2022 1:57 PM documented in this encounterGreene [facility] Hospital02-07-2023 History of Present illness Narrative* Freda Gerard RN - 07/25/2022 8:27 AM EST The patient is here today for follicular ultrasound and blood work. The patient reports no problemsor complaints. Ultrasound and blood will be reviewed by the physician, the flow sheet will be updated and instructions will be communicated to the patient. Patient stayed to meet with nursing. Freda Gerard RN Called patient with plan per flowsheet, start letrozole tomorrow, return to clinic 08/02 for scan. Patient states understanding. Request sent for appointment on 08/02 at 0730. Freda Gerard RN July 25, 2022 1:26 PM documented in this encounterGreene [facility] Hospital02-06-2023 Miscellaneous Notes* Telephone Encounter - Freda Gerard RN - 07/24/2022 9:42 AM EST Returned phone call. Patient period started today after stopping OCP last week per plan. Baseline scheduled for tomorrow 07/25 at 7:30. Request sent for appointment. No further questions. Freda Gerard RN July 24, 2022 9:45 AM * Telephone Encounter - Ramila Dias - 07/24/2022 8:55 AM EST Pts cycle started today 07/24 please follow up Speaking with Nurse Freda documented in this encounterGreene [facility] Hospital01-19-2023 History of Present illness Narrative* Freda Gerard RN - 07/06/2022 1:31 PM EST Called patient with plan. Start control pills today, take them through 06/21, then call with period for baseline. Patient states understanding, will call for appointment with period. Freda Gerard RN July 06, 2022 1:34 PM * Aydee More RN - 07/06/2022 7:54 AM EST The patient is here today for follicular ultrasound and blood work. The patient reports no problemsor complaints. Ultrasound and blood will be reviewed by the physician, the flow sheet will be updated and instructions will be communicated to the patient. Pt did not stay to meet with nursing. Aydee More RN documented in this [facility]12-28-2022 Miscellaneous Notes* Telephone Encounter - Freda Gerard RN - 06/14/2022 2:35 PM EST Patient calling in. She has been having bleeding since 06/01. The bleeding is light, sometimes she doesn't need to change her pad all day. Advised patient this may be from her dropped IVF cycle in April, although it has been a while since then it can throw off normal cycles. Advised her to take a test, and to call her regular OB to see if she can see her. Dr. Sebastian is out this week,advised to call back next week if not resolved. Patient states understanding. Freda Gerard RN June 14, 2022 2:38 PM documented in this encounterGreene [facility] Hospital12-28-2022 Miscellaneous Notes* Telephone Encounter - Freda Gerard RN - 06/14/2022 2:00 PM EST Returned phone call, left voicemail message for patient to call back at her convenience. Freda Gerard RN June 14, 2022 2:01 PM documented in this [facility]12-19-2022 Consult note* Soren Sebastian MD - 06/05/2022 1:11 PM EST VIRTUAL VISIT PROGRESS NOTE This is a virtual visit using Tamago video visit. It required patient-provider interaction for themedical decision making as documented below. Date of Consult: 06/05/2022 Consultation Requested By: Self-referred Latonya Rodarte is a 36 year old female presenting with the following history: HISTORY OF PRESENT ILLNESS: Latonya Rodarte is a 36 year old female PMHx: Uterus didelphys; imperforate anus PSHx: Rectovaginal fistula repair; Resection vaginal septum; Bilateral ureteral re-implantation; Bowel resection; Umbilical stoma (MACE); release of tethered spinal cord Desire for future fertility Reviewed operative reports with patient Her surgeons believe that we can proceed as required Patient reports continued difficulty with healing and bowel function after surgery Discussed to outcome of our CLUB LICENSEE/VERENICE portion of the surgery: 1 tube excised. I tube disconnected. Severe pelvic adhesions. Discussed preparation and transition to IVF planning once bowel function and incision healing improved and stable *Discussed menses started few days after IVF cycle cancellation/ LMP 06/02/22 *Discussed wants to continue embryo banking efforts *Discussed IVF stimulation protocol *Discussed mini-stimulation protocols *Discussed history of extensive pelvic 36 year old male partner without proven fertility SA: Normal Notes from previous encounter: 35 year old female PMHx: Uterus didelphys; imperforate anus PSHx: Rectovaginal fistula repair; Resection vaginal septum; Bilateral ureteral re-implantation; Bowel resection; Umbilical stoma (MACE); release of tethered spinal cord Desire for future fertility Reviewed operative reports with patient Her surgeons believe that we can proceed as required Patient reports continued difficulty with healing and bowel function after surgery Discussed to outcome of our CLUB LICENSEE/VERENICE portion of the surgery: 1 tube excised. I tube disconnected. Severe pelvic adhesions. Discussed preparation and transition to IVF planning once bowel function and incision healing improved and stable *Discussed 33 year old male partner without proven fertility SA: Normal Notations from previous visit: Post-op visit: 34 year old female PMHx: Uterus didelphys; imperforate anus PSHx: Rectovaginal fistula repair; Resection vaginal septum; Bilateral ureteral re-implantation; Bowel resection; Umbilical stoma (MACE); release of tethered spinal cord Desire for future fertility Reviewed operative reports with patient Her surgeons believe that we can proceed as required *Patient reports continued difficulty with healing and bowel function after surgery *Discussed to outcome of our CLUB LICENSEE/VERENICE portion of the surgery: 1 tube excised. I tube disconnected. Severe pelvic adhesions. *Discussed preparation and transition to IVF planning once bowel function and incision healing improved and stable 33 year old male partner without proven fertility SA: Not completed to date Notations from previous visit: 34 year old female PMHx: Uterus didelphys; imperforate anus PSHx: Rectovaginal fistula repair; Resection vaginal septum; Bilateral ureteral re-implantation; Bowel resection; Umbilical stoma (MACE); release of tethered spinal cord Desire for future fertility Reviewed operative reports with patient Her surgeons believe that we can proceed as required 33 year old male partner without proven fertility SA: Not completed to date Notations from previous visit: 34 year old female presents to discuss, PMHx: Uterus didelphys;imperforate anus. PSHx: Rectovaginal fistula repair; Resection vaginal septum; Bilateral ureteral re-implantation; Bowel resection; Umbilical stoma (ALEX); release of tethered spinal cord. Desire for future fertility. 33 year old male partner without proven fertility. SA: Not completed to date. Obstetric History T0 L0 SAB0 IAB0 Ectopic0 Multiple0 Live Births0 Fertility Evaluations and Treatments: Eval Checklist Results Date Comments HSG Abnormal Hysteroscopy Not done Laparoscopy Abnormal severe adhesions OPK (Ovulation Predictor Kit) Normal Ovarian [place] Not done Saline Ultrasound Not done Semen Analysis Not done Ultrasound Abnormal Other (See comments) Not done MENSTRUAL HISTORY: Menarche Age: 14 Length of Cycle: 33 Irregular Days: 5-7 Menstrual Flow: Moderate Menstrual Symptoms: Pain,Cramping,Bloating,Mood Changes,Breast Tenderness Patient's last menstrual period was 12/13/2021. PAST MEDICAL HISTORY Diagnosis Date History of tethered spinal cord at , surgical correction at age 14 Imperforate anus Kidney stone Uterus didelphys PAST SURGICAL HISTORY Procedure Laterality Date BOWEL RESECTION HX 1989 LAMINECTOMY RELEASE TETHERED SPINAL CORD LUMBAR age 14 OSTOMY/HERNIA - REVISION 1992 PAST SURGICAL HISTORY OF multiple reconstructive surgeries for imperforate anus PAST SURGICAL HISTORY OF 1997 bilateral ureteral reimplants PAST SURGICAL HISTORY OF 2015 vaginal septum PAST SURGICAL HISTORY OF 1993 rectovaginal fistula repair PAST SURGICAL HISTORY OF 2010 stoma revision STOMA CAP umbilical FAMILY HISTORY Problem Relation Age of Onset Diabetes Father Anesthesia Problems No Family History ETHNICITY: White GENETIC HISTORY: NA OCCUPATION/EXERCISE: Occupation: [employer] Exercise: walking, cardio, lifting, bike riding Partner Information Partner's Name: Pawan Rodarte Partner's : 1986 Partner's Partner's Ethnicity: NOT or Partner's Race: White Occupation: [employer] Legally ?: Yes Years together: 10 Do they have children together?: No Any other Previous Pregnancies?: No Smoking History: Never Use of alchol: socially Use of Drugs: none Medications: none Pertinent Medical Hx: none Pertinent Surgical Hx: none Pertinent Genetic Hx: none MEDICATIONS: Current Outpatient Medications on File Prior to Visit Medication Sig Follitropin Beta (FOLLISTIM AQ) 900 unit/1.08 mL Inject 225 Units subcutaneously twice daily. leuprolide (LUPRON) 1 mg/0.2 mL For microdose leuprolide: inject leuprolide 0.5ml into bacteriostatic sodium chloride 10ml. Inject 40 mcg/0.2ml subcutaneously twice daily Syringe, Disposable, 1 mL To be used to mix the microdose Lupron chorionic gonadotropin (PREGNYL) 10,000 unit solr 10,000 Units as directed. Mix vials as directed per nursing in office. Administer subcutaneous. doxycycline (VIBRA-TABS) 100 mg tablet Take 1 tablet by mouth twice daily. estradiol (ESTRACE) 2 mg tablet Take 3 tablets by mouth once daily. methylPREDNISolone (MEDROL) 16 mg tablet Take 1 tablet by mouth once daily. progesterone 50 mg/mL injection Inject 1 mL intramuscularly once daily. Inject in the morning Cholecalciferol, Vitamin D3, (VITAMIN D) 25 mcg (1,000 unit) cap Take 1,000 Units by mouth once daily. Norethindrone-Eth Estradiol (NECON 0.5/35, 28,) 0.5-35 mg-mcg per tablet Take as directed. Start when instructed by IVF nurse. (Patient not taking: Reported on 03/16/2021 ) acetaminophen (TYLENOL) 325 mg cap Take by mouth as needed. amphetamine-dextroamphetamine XR (ADDERALL XR) 15 mg 24 hr capsule Take 15 mg by mouth once daily. PNV no.95/ferrous fum/folic ac ( ORAL) Take by mouth once daily. MULTI-VITAMIN ORAL Take by mouth. buPROPion XL (WELLBUTRIN XL) 150 mg 24 hr tablet Take 150 mg by mouth once daily. No current facility-administered medications on file prior to visit. ALLERGIES: Ampicillin [facility] PAP Results: Normal Date: 06/2019 HPV Results: Negative Date: 06/2019 STD Results: No Blood Type: O POSITIVE ASSESSMENT: 36 year old female PMHx: Uterus didelphys; imperforate anus PSHx: Rectovaginal fistula repair; Resection vaginal septum; Bilateral ureteral re-implantation; Bowel resection; Umbilical stoma (MACE); release of tethered spinal cord Desire for future fertility Reviewed operative reports with patient Her surgeons believe that we can proceed as required Patient reports continued difficulty with healing and bowel function after surgery Discussed to outcome of our CLUB LICENSEE/VERENICE portion of the surgery: 1 tube excised. I tube disconnected. Severe pelvic adhesions. Discussed preparation and transition to IVF planning once bowel function and incision healing improved and stable *Discussed menses started few days after IVF cycle cancellation/ LMP 06/02/22 *Discussed wants to continue embryo banking efforts *Discussed IVF stimulation protocol *Discussed mini-stimulation protocols *Discussed history of extensive pelvic 36 year old male partner without proven fertility SA: Normal Notes from previous encounter: 35 year old female PMHx: Uterus didelphys; imperforate anus PSHx: Rectovaginal fistula repair; Resection vaginal septum; Bilateral ureteral re-implantation; Bowel resection; Umbilical stoma (MACE); release of tethered spinal cord Desire for future fertility Reviewed operative reports with patient Her surgeons believe that we can proceed as required Patient reports continued difficulty with healing and bowel function after surgery Discussed to outcome of our CLUB LICENSEE/VERENICE portion of the surgery: 1 tube excised. I tube disconnected. Severe pelvic adhesions. Discussed preparation and transition to IVF planning once bowel function and incision healing improved and stable *Discussed 33 year old male partner without proven fertility SA: Normal Notations from previous visit: Post-op visit: 34 year old female PMHx: Uterus didelphys; imperforate anus PSHx: Rectovaginal fistula repair; Resection vaginal septum; Bilateral ureteral re-implantation; Bowel resection; Umbilical stoma (MACE); release of tethered spinal cord Desire for future fertility Reviewed operative reports with patient Her surgeons believe that we can proceed as required *Patient reports continued difficulty with healing and bowel function after surgery *Discussed to outcome of our CLUB LICENSEE/VERENICE portion of the surgery: 1 tube excised. I tube disconnected. Severe pelvic adhesions. *Discussed preparation and transition to IVF planning once bowel function and incision healing improved and stable 33 year old male partner without proven fertility SA: Not completed to date Notations from previous visit: 34 year old female PMHx: Uterus didelphys; imperforate anus PSHx: Rectovaginal fistula repair; Resection vaginal septum; Bilateral ureteral re-implantation; Bowel resection; Umbilical stoma (MACE); release of tethered spinal cord Desire for future fertility Reviewed operative reports with patient Her surgeons believe that we can proceed as required 33 year old male partner without proven fertility SA: Not completed to date Notations from previous visit: 34 year old female PMHx: Uterus didelphys; imperforate anus PSHx: Rectovaginal fistula repair; Resection vaginal septum; Bilateral ureteral re-implantation; Bowel resection; Umbilical stoma (MACE); release of tethered spinal cord Desire for future fertility 33 year old male partner without proven fertility SA: Not completed to date PLAN: IVF cycle planning: Letrozole 7.5 mg CD 3-7 Follicle monitoring US Dual trigger Antagonist. FSH 450. LD hCG 200. Dual trigger if LET non-responsive Notes from previous encounter: IVF cycle planning: Off OCP since IVF stimulation start No OCP prior to next IVF stimulation FSH 450. LD hCG 200 STI/FDA infectious disease screening tests Office hysteroscopy or SIS Xochitl Contreras: Discuss medical insurance benefits and likely [id number] costs of IVF. IVF nurse coordinator: Schedule IVF nurse teaching. Order meds. Prepare IVF cycle schedule/flowsheet. Sign consents. Dr Sebastian: Review lab test results. Determine IVF stimulation protocol and medications dosage. Consultation with couple prior to IVF start if questions, abnormal lab test values or other concerns arise. Notations from previous visit: IVF cycle planning: Antagonist. FSH 225. Low-dose hCG STI/FDA infectious disease screening tests Carrier screening Office hysteroscopy or SIS prior to FET Xochitl Contreras: Discuss medical insurance benefits and likely [id number] costs of IVF. IVF nurse coordinator: Schedule IVF nurse teaching. Order meds. Prepare IVF cycle schedule/flowsheet. Sign consents. Dr Sebastian: Review lab test results. Determine IVF stimulation protocol and medications dosage. Consultation with couple prior to IVF start if questions, abnormal lab test values or other concerns arise. Notations from previous visit: Laparoscopy lysis of adhesion; bilateral salpingectomy Notations from previous visit: Records release from [place] physicians Likely laparoscopy bilateral salpingectomy prior to IVF I spent a total of 28 minutes on the date of the service which included preparing to see the patient, [id number] patient care, completing clinical documentation, obtaining and/or reviewing separately obtained history, counseling and educating the patient/family/caregiver, ordering medications, darcy ts, or procedures, communicating with other HCPs (not separately reported), independently interpreting results (not separately reported), and communicating results to the patient/family/caregiver. Soren Sebastian MD June 05, 2022 1:12 PM documented in this encounterGreene [facility] Hospital11-21-2022 Miscellaneous Notes* Telephone Encounter - Freda Gerard RN - 05/08/2022 3:05 PM EST Returned patient phone call. She would like to start on antidepressants. Advised her this is fine with IVF stimulation, with some antidepressants are not so to make sure she lets her doctorknow she is trying to get . Patient states understanding. Freda Gerard RN May 08, 2022 3:08 PM * Telephone Encounter - Paris Villarreal - 05/08/2022 9:11 AM EST Pt has questions regarding anti-depressants with her IVF cycle medications documented in this encounterGreene [facility] Hospital11-15-2022 Miscellaneous Notes* Telephone Encounter - Freda Gerard RN - 05/02/2022 11:48 AM EST Returned phone call. Patient states she is having heavy bleeding after stopping injections last night, heavier than a normal period. She states she is not going through a pad an hour. I spoke with Dr. Velarde who states it is unusual for her to start bleeding so soon after dropping the cycle, but nointervention needed currently. Went over bleeding precautions, and to let me know if bleeding gets w orse. Patient states understanding. Freda Gerard RN May 02, 2022 11:52 AM * Telephone Encounter - Felicia Almaguer - 05/02/2022 9:23 AM EST Stopped injections last night and having a lot of bleeding, still having bleeding. documented in this encounterGreene [facility] Hospital11-14-2022 History of Present illness Narrative* Freda Gerard RN - 05/01/2022 1:42 PM EST Called patient, advised her the doctor of the day recommends cancelling cycle. Estrogen dropped, nofollicles seen. Patient would like another AMH drawn, wants to meet with Dr. Sebastian for next steps.Chart sent to scheduling to set up appointment with Dr. Sebastian. Freda Gerard RN May 01, 2022 1:46 PM * Laya Lentz RN - 05/01/2022 8:06 AM EST The patient is here today for follicular ultrasound and blood work. The patient reports no problemsor complaints. Ultrasound and blood will be reviewed by the physician, the flow sheet will be updated and instructions will be communicated to the patient. Pt did not stay to meet with nursing. Laya Lentz RN May 01, 2022 8:06 AM documented in this encounterGreene [facility] Hospital11-07-2022 Instructions* Patient Instructions* Freda Gerard RN - 04/24/2022 8:37 AM EST documented in this encounterGreene [facility] Hospital11-07-2022 History of Present illness Narrative* Freda Gerard RN - 04/24/2022 8:36 AM EST The patient is here today for follicular ultrasound and blood work. The patient reports no problemsor complaints. Ultrasound and blood will be reviewed by the physician, the flow sheet will be updated and instructions will be communicated to the patient. Went over microdose protocol. Freda Gerard RN Called patient with plan per flowsheet. Start injections tonight, return to clinic next Sunday for scan and blood work. Patient states understanding, detailed MyChart message sent. Request for appointment for Tuesday 05/01 around 7 sent. Freda Gerard RN April 24, 2022 1:59 PM documented in this [facility]11-04-2022 Miscellaneous Notes* Telephone Encounter - Kaila Smith RN - 04/21/2022 4:22 PM EDT Called pt by listed phone number. Pt CD1 today. Scheduled for natural baseline appointment for Sunday04/24/22 at 0715. Kaila Smith RN April 21, 2022 4:23 PM * Telephone Encounter - Felicia Ricketts Pss - 04/21/2022 2:34 PM EDT Patient is doing a natural cycle. documented in this [facility]10-25-2022 Miscellaneous Notes* Telephone Encounter - Freda Gerard RN - 04/11/2022 4:23 PM EDT Returned patient phone call. She is ready to move forward, she is a natural start. She is expectingher period in the next week. Checklist updated, medications ordered to [facility]. Patient will call with period. No further questions at this time. Freda Gerard RN April 11, 2022 4:26 PM * Telephone Encounter - Ramila Dias - 04/11/2022 2:31 PM EDT Pt returning Nurse Monico phone call to follow up [facility] Miscellaneous Notes* Telephone Encounter - Freda Gerard RN - 04/10/2022 10:54 AM EDT Returned phone call. Left voicemail to call back. Freda Gerard RN April 10, 2022 10:55 AM * Telephone Encounter - Kasia Lund Pss - 04/10/2022 9:19 AM EDT Freda villa has ques on her meds documented in this encounterGreene [facility]09-27-2022 Miscellaneous Notes* Telephone Encounter - Freda Gerard RN - 03/14/2022 1:43 PM EDT Called patient, advised her to take her estrace now, and the other 2 at bedtime. Patient states understanding. Freda Gerard RN March 14, 2022 1:44 PM * Telephone Encounter - Felicia Ricketts Pss - 03/14/2022 12:48 PM EDT Should she take all of them tonight, needs guidance. documented in this [facility]09-15-2022 Procedure note* Ysabel Scott MD - 03/02/2022 4:19 PM EDT [facility] VERENICE TRANSFER PROCEDURE NOTE Date: 03/02/2022 Primary Proceduralist: Soren Sebastian MD Shower Room Attendant(s): Ysabel Scott MD Informed Consent: Consents and Labels Consent Signed: Informed Consent obtained and on the chart Labels Verified With Patient: Yes Indications: Latonya Rodarte, is a 36 year old female here today for Embryo Transfer. [place] Protocol: UNIVERSAL PROTOCOL / SAFETY CHECKLIST Procedure to be Performed: Embryo transfer Sign In: A Moment of CARE was completed. Personnel directly involved with the procedure wore the appropriate PPE (Personal Protective Equipment). Patient/Surrogate Stated/Verified: PATIENT VERIFIED(optional for EMERGENT procedures): Patient name, Date of , Relevant allergies, and The intended procedure Time Out Communication: Intended patient and procedure match the source documents. Consent documented and matches the intended procedure. Sign Out: SIGN OUT (optional for EMERGENT procedures): No specimen collected. All instruments, equipment, possible retained foreign bodies accounted for. Post-procedure follow-up management communicated and Plan of Care Visit completed when applicable. Ysabel Scott MD TRANSFER Transfer Date: 03/02/22 Transfer Procedure: Embryo Transfer Transfer Physician: Soren Sebastian M.D. Pre-Procedure Diagnosis: Infertility Post-Procedure Diagnosis: Infertility Source of embryos: Patient Total Thawed: 1 # of Embryos Transferred: 1 ASRM Guidelines: Recommended limits adhered to Catheter Type: Reeder Ease of Transfer: Difficult Direction: Other (see comment) Comment: Right horn with oblique orientation in the abdomen - difficult to scan Curve: anterior Distance from fundus (mm): 15 Tissue Status: For Autologous Use Only/ Not Evaluated for Infectious Substances Specimens: None Primary surgeon/proceduralist performed the procedure with assistance of the fellow. SIGNATURE: Ysabel Scott MD PATIENT NAME: Latonya Rodarte DATE: March 02, 2022 TIME: 4:19 PM documented in this encounterGreene [facility]09-15-2022 History of Present illness Narrative* Ruth Ann Ernst - 03/02/2022 2:01 PM EDT Embryo Transfer procedure performed. Detailed notes can be found in the paper chart in the [facility] Office. Ruth Ann Ernst documented in this encounterGreene [facility] Hospital09-15-2022 Instructions* Patient Instructions* Siena Mckay RN - 03/02/2022 1:57 PM EDT POST EMBRYO TRANSFER INSTRUCTIONS You will need to have your blood drawn for Quantitative HCG on 03/16/22 at [facility]. You can expectto be called the afternoon of your blood draw with your test results. If for any reason that date or location is changed, please call [phone] to inform us. Continue your current medications as instructed UNTIL YOU ARE 10 WEEKS or until a BLOOD test is confirmed negative. It is not uncommon to have breast tenderness, bloating, vaginal spotting ranging from pink to red to brown and generally feeling premenstrual while waiting to test. You can feel this way and still be - DO NOT STOP YOUR MEDICATIONS until testing is completed. Call the office if you develop: - Pain, redness and heat at your injection sites From the day of your transfer on, please treat yourself as if you are . Things to avoid: - Hot tubs/raising your core temperature - Chemical exposures - Drugs/medications that are not safe in - Processed lunch meat, unpasteurized cheeses - Smoking - Fish that are high in mercury Our recommendations on maintaining a healthy lifestyle during this time include: - Regular physical activity. Bed-rest is NOT recommended and will not increase your chance of - Daily vitamin or folic acid - Healthy diet - Adequate sleep - Sexual intimacy/intercourse/orgasm will not interfere with implantation. It is difficult to maintain the balance between optimism and realism. Remember you have done and are doing all that you can to improve your odds. Set reasonable expectations for yourselves. Keeping yourself busy and mentally distracted will help the time pass while waiting to test. If you have any questions, please call [phone]. documented in this encounterGreene [facility]09-09-2022 History of Present illness Narrative* Anahy Velarde MD - 02/24/2022 1:24 PM EDT Called patient with plan for transfer. Went over medications and timing. Detailed Phoneplust message sent. Patient has no questions. Freda Gerard RN February 24, 2022 1:30 PM * Aydee More RN - 02/24/2022 7:50 AM EDT The patient is here today for follicular ultrasound and blood work. The patient reports no problemsor complaints. Ultrasound and blood will be reviewed by the physician, the flow sheet will be updated and instructions will be communicated to the patient. Pt did not stay to meet with nursing. Aydee More RN documented in this encounterGreene [facility] Hospital09-07-2022 History of Present illness Narrative* Freda Gerard RN - 02/22/2022 1:45 PM EDT Called patient with plan, continue with estrace by mouth, add 1 mg vaginally, return to the clinic on Sunday. Patient states understanding. Request sent to scheduling for appointment. Freda Gerard RN February 22, 2022 1:50 PM * Laya Lentz RN - 02/22/2022 8:15 AM EDT The patient is here today for follicular ultrasound and blood work. The patient reports no problemsor complaints. Ultrasound and blood will be reviewed by the physician, the flow sheet will be updated and instructions will be communicated to the patient. Pt did not stay to meet with nursing. Laya Lentz RN February 22, 2022 8:16 AM * Aiyana Harman APRN.CNP - 02/22/2022 7:43 AM EDT orders filed fo monitoring today. Aiyana Harman APRN.CNP February 22, 2022 7:43 AM documented in this encounterGreene [facility]08-29-2022 Miscellaneous Notes* Telephone Encounter - Freda Gerard RN - 02/13/2022 4:44 PM EDT Called patient, she started estrace on 02/10. Lining check scheduled for 02/22. Thaw plan turned in. Request sent for appointment on 02/22. Freda Gerard RN * Telephone Encounter - Felicia Almaguer - 02/10/2022 3:35 PM EDT Calling regarding frozen embryo transfer. documented in this encounterGreene [facility] Hospital08-29-2022 Miscellaneous Notes* Telephone Encounter - Paris Villarreal - 02/13/2022 2:27 PM EDT Pt reporting cycle start 02/10 for FET documented in this encounterGreene [facility] Hospital08-11-2022 History of Present illness Narrative* Fread Gerard RN - 01/26/2022 12:05 PM EDT The patient is here today for follicular ultrasound and blood work. The patient reports no problemsor complaints. Ultrasound and blood will be reviewed by the physician, the flow sheet will be updated and instructions will be communicated to the patient. Freda Gerard RN Called patient with plan, cancel cycle, next time do 4mg estrace BID. Wait for period and call to set up lining check. Patient states understanding. Per Dr. Sebastian no MFM consult needed before . Freda Gerard RN January 26, 2022 2:14 PM documented in this encounterGreene [facility] Hospital08-11-2022 Miscellaneous Notes* Telephone Encounter - Paris Villarreal - 01/26/2022 11:09 AM EDT Pt dropped off FET thaw plan this morning and just wants to double check that the nurses got it documented in this encounterC[place] [id number] Miscellaneous Notes* Telephone Encounter - Jen Cruz - 12/26/2021 2:33 PM EDT Unable to reach patient by phone, sent Phoneplust message with instructions. Medicaition orders pended. Lining check orders pended. Checklist updated. Jen Cruz December 26, 2021 2:33 PM * Telephone Encounter - Paris Villarreal - 12/26/2021 10:16 AM EDT Pt had hysteroscopy last week and now needs meds ordered for FET. Pt says she usually talks to Freda documented in this encounterGreene [facility] Hospital07-06-2022 Procedure note* Wil Luke MD - 12/21/2021 12:14 PM EDT Pt has two cervicies and uteri. Hysteroscopy performed. UNIVERSAL PROTOCOL / SAFETY CHECKLIST Procedure to be Performed: office hysteroscopy Sign In: A Moment of CARE was completed. Personnel directly involved with the procedure wore the appropriate PPE (Personal Protective Equipment). Patient/Surrogate Stated/Verified: PATIENT VERIFIED(optional for EMERGENT procedures): Patient name, Date of , Relevant allergies and The intended procedure Time Out Communication: Intended patient and procedure match the source documents. Consent documented and matches the intended procedure. Sign Out: SIGN OUT (optional for EMERGENT procedures): No specimen collected. Wil Luke MD OBJECTIVE: Right Cervix cleaned with chloraprep. Under sterile conditions, using 40 mL normal saline as distention, 3.1mm flexible hysteroscopy performed without incident. No intrauterine lesions. Tubal ostium visualized and normal. Access was easier than the left side. Left Cervix cleaned with chloraprep. Under sterile conditions, using 40 mL normal saline as distention, 3.1mm flexible hysteroscopy performed without incident. No intrauterine lesions. Tubal ostium visualized and normal. Lower cavity very small thin papillations noted. PROCEDURE SUMMARY: Patient tolerated procedure well. ASSESMENT: Infertility with no lesions on hysteroscopy. PLAN: Per IVF team. Wil Luke MD documented in this encounterGreene [facility] Hospital07-06-2022 History of Present illness Narrative* Birgit Hale RN - 12/21/2021 11:25 AM EDT Age: [age] year old LMP: Patient's last menstrual period was 12/13/2021. Day of Cycle 9 BP/Weight: Ht 162.6 cm (5' 4) Wt 69.9 kg (154 lb) LMP 12/13/2021 BMI 26.43 kg/m Reason for Visit: Infertility UNIVERSAL PROTOCOL / SAFETY CHECKLIST Procedure to be Performed: office hysteroscopy Birgit Hale RN Antibiotics Needed: No Comments: setting up for FET Test: Negative documented in this encounterGreene [facility] Hospital07-05-2022 Miscellaneous Notes* Telephone Encounter - Freda Gerard RN - 12/20/2021 11:57 AM EDT Returned patient phone call. She is scheduled for a hysteroscopy tomorrow. There was some confusionabout hysteroscopy vs SIS, patient does have coverage for hyster, she is ok with moving forward. Nofurther questions at this time. Freda Gerard RN December 20, 2021 12:01 PM * Telephone Encounter - Felicia Ricketts Pss - 12/20/2021 10:24 AM EDT Patient states hyster order changed to sis patient is scheduled for hysteroscopy has 80% coverage with insurance. Please follow up with patient. documented in this encounterGreene [facility] Hospital06-15-2022 Miscellaneous Notes* Telephone Encounter - Freda Gerard RN - 11/30/2021 3:55 PM EDT Returned phone call, left voicemail message she needs hysteroscopy next. Order placed, advised her to call with period to schedule. Freda Gerard RN November 30, 2021 3:56 PM * Telephone Encounter - Kasia Lund Pss - 11/30/2021 2:27 PM EDT Pt had ret in September wants to discuss setting up fet documented in this encounterGreene [facility] Hospital05-01-2022 History of Present illness Narrative* Geno Fatima - 10/16/2021 9:09 AM EDT IVF freeze all cycle. Geno Fatima October 16, 2021 9:09 AM documented in this encounterGreene [facility] Hospital04-25-2022 History of Present illness Narrative* Sasha Stoddard - 10/10/2021 12:39 PM EDT Retrieval procedure performed. Detailed notes can be found in the paper chart in the [facility] Office. Sasha Stoddard documented in this encounterGreene Memorial Hospital04-24-2022 History of Present illness Narrative* Katrina Mcclain RN - 10/09/2021 11:37 AM EDT Patient had post trigger labs done today. Will be reviewed by EGR. Plan for retrieval tomorrow. Katrina Mcclain RN October 09, 2021 11:43 AM documented in this encounterGreene [facility] Hospital04-23-2022 History of Present illness Narrative* Katrina Mcclain RN - 10/08/2021 8:45 AM EDT The patient is here today for follicular ultrasound and blood work. The patient reports no problemsor complaints. Ultrasound and blood will be reviewed by the physician, the flow sheet will be updated and instructions will be communicated to the patient. Katrina Mcclain RN RN called patient, name and verified. Plan given for IVF cycle per physician, see flowsheet fordetails. MyChart message sent. Medications reviewed and verified, instructions given. Patient denies any questions or concerns. Patient triggering tonight at 11pm with post trigger labs tomorrow at 8:15. Message sent to scheduling pool for next appt. Katrina Mcclain RN October 08, 2021 1:54 PM documented in this encounterGreene Memorial Hospital04-22-2022 Miscellaneous Notes* Telephone Encounter - Freda Gerard RN - 10/07/2021 8:50 AM EDT Returned patient phone call. She has just enough medication for tonight, possibly a little less. Advised her this is ok, just inject as much as she has. She will most likely trigger tomorrow. Freda Gerard RN October 07, 2021 9:32 AM * Telephone Encounter - Felicia Ricketts Pss - 10/07/2021 8:40 AM EDT Please call patient she states she needs meds for tonight, questions about follistim. Please call patient, uses [facility] for medication. documented in this encounterGreene Memorial Hospital04-22-2022 History of Present illness Narrative* Aiyana Harman APRN.CNP - 10/07/2021 7:31 AM EDT orders filed for e2 for 10-08-21. Aiyana Harman APRN.CNP October 07, 2021 7:32 AM documented in this encounterGreene Memorial Hospital04-21-2022 History of Present illness Narrative* Freda Gerard RN - 10/06/2021 9:36 AM EDT The patient is here today for follicular ultrasound and blood work. The patient reports no problemsor complaints. Ultrasound and blood will be reviewed by the physician, the flow sheet will be updated and instructions will be communicated to the patient. Freda Gerard RN Attempted to call patient with plan, left voicemail message, sent detailed MyChart. Sent request for Sunday appointment. Freda Gerard RN October 06, 2021 1:50 PM documented in this encounterGreene Memorial Hospital04-21-2022 History of Present illness Narrative* Aiyana Harman APRN.CNP - 10/06/2021 6:54 AM EDT orders filed for Prog and US exam. Aiyana Harman APRN.CNP October 06, 2021 6:56 AM documented in this encounterGreene Memorial Hospital04-20-2022 History of Present illness Narrative* Freda Gerard RN - 10/05/2021 8:33 AM EDT The patient is here today for follicular ultrasound and blood work. The patient reports no problemsor complaints. Ultrasound and blood will be reviewed by the physician, the flow sheet will be updated and instructions will be communicated to the patient. Freda Gerard RN Called patient with plan. Advised her to continue same medication dose and return to clinic tomorrow. If Dr. Sebastian is available he will do ultrasound to see if he can visualize left ovary. Patient states understanding. Freda Gerard RN October 05, 2021 1:37 PM documented in this encounterGreene Memorial Hospital04-17-2022 History of Present illness Narrative* Aydee More RN - 10/02/2021 10:26 AM EDT The patient is here today for follicular ultrasound and blood work. The patient reports no problemsor complaints. Ultrasound and blood will be reviewed by the physician, the flow sheet will be updated and instructions will be communicated to the patient. Pt did not stay to meet with nursing. Aydee More RN Call to patient at cell number listed Informed pt to continue all same dose of medications and start ganirelix tomorrow morning. Pt will continue same time richa morning before 8 am, see cycle flow sheet. RTC 10/05/21 at 7:15 am. Pt verbalized understanding Aydee More RN October 02, 2021 11:37 AM documented in this encounterGreene Memorial Hospital04-13-2022 History of Present illness Narrative* Freda Gerard RN - 09/28/2021 7:58 AM EDT The patient is here today for follicular ultrasound and blood work. The patient reports no problemsor complaints. Ultrasound and blood will be reviewed by the physician, the flow sheet will be updated and instructions will be communicated to the patient. Patient stayed to meet with nurse. Freda Gerard RN Called patient, left voicemail message with plan, continue same dose and return to clinic on Sunday. Sent [place] message, requested appointment for Sunday around 7:15 Freda Gerard RN September 28, 2021 1:57 PM documented in this encounterGreene [facility] Hospital04-11-2022 History of Present illness Narrative* Freda Gerard RN - 09/26/2021 8:37 AM EDT Patient did not stay to meet with nurse. The patient is here today for follicular ultrasound and blood work. The patient reports no problemsor complaints. Ultrasound and blood will be reviewed by the physician, the flow sheet will be updated and instructions will be communicated to the patient. Freda Gerard RN Called patient with plan, continue with same and return to clinic on Sunday. Patient states understanding. Freda Gerard RN September 26, 2021 1:31 PM documented in this encounterGreene Memorial Hospital04-08-2022 Miscellaneous Notes* Telephone Encounter - Megan Cabrera - 09/23/2021 8:12 AM EDT Patient paid me for $750 for ultrasounds and $150 for nurse visit * Telephone Encounter - Felicia Ricketts Pss - 09/22/2021 10:28 AM EDT Please follow up with patient. documented in this encounterGreene Memorial Hospital04-07-2022 History of Present illness Narrative* Aiyana Harman APRN.CNP - 09/22/2021 7:03 AM EDT orders filed for ivf monitoring. Aiyana Harman APRN.CNP September 22, 2021 7:03 AM [place]* Diagnosis Female infertility- Primary Female infertility of unspecified origin documented in this encounter [place] note* Diagnosis Female infertility- Primary Female infertility of unspecified origin [facility] Diagnosis Female infertility Female infertility of unspecified origin [facility]* Diagnosis Female infertility- Primary Female infertility of unspecified origin [facility]* Diagnosis Female infertility Female infertility of unspecified origin [facility]* Diagnosis Female infertility- Primary Female infertility of unspecified origin [facility]* Diagnosis Female infertility Female infertility of unspecified origin [facility]* Diagnosis Encounter for fertility testing- Primary Fertility testing Female infertility Female infertility of unspecified origin [facility]* Diagnosis Encounter for fertility testing Fertility testing Female infertility Female infertility of unspecified origin [facility]* Diagnosis Female infertility- Primary Female infertility of unspecified origin [facility] encounter [facility]* Diagnosis Encounter for fertility testing- Primary Fertility testing documented in this encounter [place] note* Diagnosis Fertility testing- Primary Pre-procedural laboratory examination documented in this encounter [place] note* Diagnosis Primary female infertility- Primary Female infertility of unspecified origin documented in this encounter [place] note* Diagnosis Female infertility- Primary Female infertility of unspecified origin documented in this encounter [place] note* Diagnosis Primary female infertility Female infertility of unspecified origin documented in this encounter [place] note* Diagnosis Female infertility- Primary Female infertility of unspecified origin [facility]* Diagnosis Primary female infertility- Primary Female infertility of unspecified origin documented in this encounter [place] note* Diagnosis examination or test, unconfirmed- Primary Infertility, female Female infertility of unspecified origin documented in this encounter [place] note* Diagnosis Encounter for fertility testing- Primary Fertility testing documented in this encounter [place] note* Diagnosis Female infertility- Primary Female infertility of unspecified origin documented in this encounter [place] note* Diagnosis Female infertility- Primary Female infertility of unspecified origin Encounter for fertility testing Fertility testing documented in this encounter [place] note* Diagnosis Female infertility- Primary Female infertility of unspecified origin Encounter for fertility testing Fertility testing documented in this encounter [place] note* Diagnosis 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 Other ovarian failure Encounter for fertility planning Other specified procreative management Female pelvic peritoneal adhesions Pelvic peritoneal adhesions, female (postoperative) (postinfection) documented in this encounter [place] note* Diagnosis Female infertility- Primary Female infertility of unspecified origin documented in this encounter [place] note* Diagnosis Encounter for fertility testing Fertility testing Female infertility Female infertility of unspecified origin [facility]* Diagnosis Female infertility Female infertility of unspecified origin documented in this encounter [place] note* Diagnosis Female infertility- Primary Female infertility of unspecified origin [facility]* Diagnosis Female infertility Female infertility of unspecified origin [facility]* Diagnosis Female infertility Female infertility of unspecified origin documented in this encounter [place] note* Diagnosis Female infertility- Primary Female infertility of unspecified origin documented [facility] this encounter [facility]* Diagnosis Female infertility Female infertility of unspecified origin [facility] Diagnosis Female infertility Female infertility of unspecified origin documented in this encounter [place] note* Diagnosis Female infertility Female infertility of unspecified origin documented in this encounter [place] note* Diagnosis Female infertility- Primary Female infertility of unspecified origin [facility] Diagnosis Female infertility- Primary Female infertility of unspecified origin [facility] Diagnosis Female infertility Female infertility of unspecified origin [facility] Diagnosis Female infertility- Primary Female infertility of unspecified origin Encounter for fertility testing Fertility testing documented in this encounter [place] note* Diagnosis Female infertility- Primary Female infertility of unspecified origin documented in this encounter [place] note* Diagnosis Female infertility- Primary Female infertility of unspecified origin Encounter for fertility testing Fertility testing documented in this encounter [place] note* Diagnosis Encounter for fertility testing Fertility testing documented in this encounter [place] note* Diagnosis Treatment plan provided- Primary [facility] Diagnosis Encounter for fertility testing Fertility testing documented in this encounter [place] note* Diagnosis Encounter for fertility testing Fertility testing documented in this encounter [place] note* Diagnosis 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 documented in this encounter [facility] Diagnosis 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 documented in this encounter [facility] Diagnosis 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 Other constipation History of antegrade continence enema procedure documented in this encounter [facility] Diagnosis 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 Other constipation History of antegrade continence enema procedure documented in this encounter [facility] Diagnosis 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 documented in this encounter [facility] Diagnosis 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 documented in this encounter [facility] Diagnosis 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 Incomplete defecation Incomplete emptying of bladder Incomplete bladder emptying [facility] Diagnosis 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 Other constipation History of antegrade continence enema procedure [facility] Author Kaila Henderson [facility] Note Date/Time October 30, 2024 9:43a m [facility] [address] [place] [address], [address] [place] [address] OFFICE VISIT Date of Service: 10/30/24 MR#: [id number] Acct: [id number] Name: LATONYA RODARTE Rep #: [id number] : 1985 Provider: Dr. Lane Henderson MD Age/Sex: 39/F Location: [facility] Status: Signed Intake Vital Signs 10/24/24 11:42 10/30/24 09:05 10/30/24 09:10 Height 5 ft 4 in 5 ft 4 in 5 ft 4 in Weight: 165 lb 4 oz BMI 28.3 BP 116/70 Intake Visit Reasons: 10W 1D HeartBeat CK per JV Sign Language Interpreter Required: No Is patient in pain?: No Allergies ampicillin Allergy (Verified 10/30/24 09:05) Hives Medications ?Medication ?Instructions ?Recorded ?Confirmed ?Type Lactobacillus 25 billion cap PO 10/14/24 10/30/24 His tory cell-Bifido 25 billion ccbu-PDN-jgenr capsule aspirin 81 mg tablet,delayed 81 mg PO QDAY 10/14/24 History release choline 250 mg tablet 250 mg PO QDAY 10/14/2410/16 History estradiol 2 mg tablet 2 mg PO QDAY 10/14/24 History glycerin (laxative) 5.4 gram/5.4 See Rx Instructions . Route DAILY 10/14/24 10/30/24 History mL rectal solution through stoma with 9ml liqui d castile soap levothyroxine 75 mcg capsule 75 mcg PO QDAY 10/14/24 0 10/30/24 History multivitamin no.47-iron fum 27 cap PO 10/14/24 5 History mg-folate no.1 1 mg-dha 300 mg capsule (PNV-DHA) progesterone 50 mg/mL 100 mg IM QDAY 10/14/2410/16 History intramuscular oil soap ea topical 10/14/24 10/30/24 History nitrofurantoin 100 mg PO BID 7 days #14 cap s 10/27/24 10/30/24 Rx monohydrate/macrocrystals 100 mg capsule (Macrobid) Last Menstrual Period: 08/21/24 Zika: Zika virus screening: Negative : No PFSH PFSH Medical History (Updated 10/30/24 @ 09:[address] Kaila Henderson MD) History of ESBL E. 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 Surgical History Previous back surgery History of rectal surgery H/O cervical polypectomy History of tubal ligation Family History Grandfather Cancer, Onset Age: 55 Paternal lung cancer then mets to throat cancer- smoking Father Diabetes Uncle Multiple sclerosis paternal Mother Lymphedema Grandfather Lymphedema Maternal Social History adopted: No household members: spouse housing: house current occupational status: unemployed current occupational exposures/hazards: No pets and animals: Yes pets and animals: dog(s) history of recent travel: Yes (- June) out of state: Yes out of country: Yes sexually active: Yes Smoking Status: Never smoker alcohol intake: current alcohol intake frequency: a few times a month details: not while substance use type: does not use well-balanced diet: daily or most days caffeine: No eating out: 1-3 times/week during the past year weight has: remained stable what type of physical activity do you participate in: walking and other details: pilates frequency: 3-4 times per week duration: 15-30 minutes/day sotero/pentecostal: None seatbelt use: always do you feel safe at home: Yes 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: 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 Date Name GA/Weeks Outcome Route Bth Weight Infant Gen Labor Lgth Anesthesia Del Locatn Provider FOB Unknown February 25, 2024 4 spontaneous Delivery Date: Last Updated by: Ginny Mcintyre failed IVF transfer HPI 10W 1D HeartBeat CK per JV Details: LATONYA RODARTE is a 39 year old who presents for routine OB visit. OB Visit WES Calculator Estimated Delivery Date Method Current WG Current Estimate 05/27/25 Conception 10w 1d Expected Delivery Route/Plan requests primary section Specific Issue/Plans Covid status: [] Flu vaccine: [] Tdap vaccine: [] Rhogam: [] LARC form signed: [] Problem list reviewed and updated with the most current plan of care details and appropriate orders placed. Relevant counseling for the gestational age provided. Continue routine care and follow up unless otherwise noted in visit notes/problem list details Initial Weight: Not Recorded Date -?-?-?-?-?-?-?-?-?-?-?-?- EGA Weight BP Urine Prot -?-?-?-?-?-?-?-?-?-?-?-?- Glucose FHR FuHt Pres Dilation -?-?-?-?-?-?-?-?-?-?-?-?- Effaced St Visit Note 10/24/24 -?-?-?-?-?-?-?-?-?--?-?-?- 9w 2d 166 lb 4 oz 111/65 -?-?-?-?-?-?-?-?-?-?-?-?- 185 -?-?-?-?-?-?-?-?-?-?-?-?- JV- crl measurin g 9 weeks 2 days and consistent with day 6 embryo transfer. see HPI for details on visit today. Wants to return in 1 week for heart beat check 10/30/24 -?-?-?-?-?-?-?-?-?-?-?-?- 10w 1d 165 lb 4 oz 116/70 Nega tive -?-?-?-?-?-?-?-?-?-?-?-?- Negative 150 -?-?-?-?-?-?-?-?-?-?-?-?- SM- no vb aguilarmpi ng ACOG First Trimester First Trimester: Desire for , Alcohol, Tobacco Cessation, Illicit/Recreational Drug/Substance Use, Intimate Partner Violence, Barriers to care, Unstable Housing, Communication Barriers, Environmental/Work Hazards, Anticipated Course of Care, Toxoplasmosis Precations, Use of Any medications, Sexual activity, Exercise, Dental Care, Sauna/Hot tub use, Seat Belt use, Childbirth classes/Hospital facilities, Travel, Indications for Ultrasound and Screening for Aneuploidy; Discussed Results POC Urinalysis 2 Dip (Clinic) Office Urine Glucose Negative Last Edit by Jesse Tidwell on 10/30/24 09:17 Office Urine Protein Negative Last Edit by Jesse Tidwell on 10/30/24 09:17 Coding Level of Care Code OB Routine Diagnoses UTI (urinary tract infection) during O23.40 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; 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 Advanced maternal age (AMA) in 10 weeks gestation of Z3A.10 Weeks of gestation: 10 weeks Supervision of high-risk O09.90 History of miscarriage, currently O09.299 Hx of maternal blood transfusion, currently O09.299 Hypothyroidism affecting O99.280; E03.9 Anxiety and depression F41.9; F32.A In vitro fertilization Z31.83 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 s/p appendicotomy and ureteral re-implantation. has abdominal port in place. has undergone several bowel surgeries since . (3) Advanced maternal age (AMA) in : Status: Acute (4) : Status: Acute Qualifiers: Weeks of gestation: 10 weeks Qualified Code(s): Z3A.10 - 10 weeks gestation of Comment: Pt has had extensive genetic testing, donor egg, baby boy (5) Supervision of high-risk : Status: Acute Comment: , WES 05/27/25, Pawan([facility] [facility]) (6) History of miscarriage, currently : Status: Acute Comment: first IVF attempt failed (7) Hx of maternal blood transfusion, currently : Status: Acute Comment: childhood surgery transfusion (8) Hypothyroidism affecting : Status: Acute (9) Anxiety and depression: Status: Acute (10) In vitro fertilization: Status: Acute Comment: donor egg (11) Didelphic uterus in : Status: Acute Comment: needs cervical lengths. (12) Lipoma of back: Status: Resolved (13) Rectal atresia: Status: Chronic (14) Recto-vaginal fistula: Status: Chronic (15) Congenital duplication of vagina: Status: Chronic (16) Congenital duplication of uterus: Status: Resolved (17) Imperforate anus: Status: Resolved (18) Tethered cord: Status: Chronic Comment: Pt has a history of tethered cord: d/w pt need for an anesthesia consult to assess for regional anesthesia at the time of delivery--determine whether anesthesia would want any recent imaging of her spine to assess feasibility. Orders: Orders POC Urinalysis 2 Dip (Clinic) Today 10/30/24 4230 <Electronically signed by Kaila hammonds MD> Date _ Kaila Henderson MD Cosigner Signature: Date (if applicable) CC: ~ [place] [employer] Work Phone: Reason for referral (narrative)* Diagnostic Procedure Only (Routine) - Pending Review Specialty Diagnoses / Procedures Referred By Valarie t Referred To Contact [facility] Diagnoses Female infertility Procedures FOLLICULAR US WHI US PELVIC NONOBSTETRIC IMAGE DCMTN LIMITED/F/U Aiyana Harman APRN.CITY PLANNER [address] [place] [address] [address] Referral ID Status Reason Start Date Expiration Date Visits Requested Visits Authorized [id number] Pending Review Auto-Generat ed Referral 09/22/2021 09/22/2022 6 6 [facility] for referral (narrative)* Diagnostic Procedure Only (Routine) - Pending Review Specialty Diagnoses / Procedures Referred By Contac t Referred To Contact [facility] Diagnoses Female infertility Procedures FOLLICULAR US WHI US PELVIC NONOBSTETRIC IMAGE DCMTN LIMITED/F/U Aiyana Harman APRN.CITY PLANNER [address] [place] [id number] [address] Referral ID Status Reason Start Date Expiration Date Visits Requested Visits Authorized [id number] Pending Review Auto-Generat ed Referral 10/06/2021 10/06/2022 6 6 [facility] for referral (narrative)* Diagnostic Procedure Only (Routine) - Pending Review Specialty Diagnoses / Procedures Referred By Contac t Referred To Contact [facility] Diagnoses Primary female infertility Procedures FOLLICULAR US WHI US PELVIC NONOBSTETRIC IMAGE DCMTN LIMITED/F/U Stuart Guerrero NURSE PRACTITIONER.CITY PLANNER [address] [place] [id number] [place] [id number] Referral ID Status Reason Start Date Expiration Date Visits Requested Visits Authorized [id number] Pending Review Auto-Generat ed Referral 12/26/2021 12/26/2022 1 1 [facility] for referral (narrative)* Diagnostic Procedure Only (Routine) - Pending Review Specialty Diagnoses / Procedures Referred By Contac t Referred To Contact [facility] Diagnoses Female infertility Procedures FOLLICULAR US I US PELVIC NONOBSTETRIC IMAGE DCMTN LIMITED/F/U Aiyana Harman APRN.CNP [address] [place] [address] [address] Referral ID Status Reason Start Date Expiration Date Visits Requested Visits Authorized [id number] Pending Review Auto-Generat ed Referral 02/22/2022 02/22/2023 6 1 [facility] for referral (narrative)* Diagnostic Procedure Only (Routine) - Pending Review Specialty Diagnoses / Procedures Referred By Contac t Referred To Contact [facility] Diagnoses Encounter for fertility testing Procedures FOLLICULAR US [facility] US PELVIC NONOBSTETRIC IMAGE DCMTBethany LIMITED/F/U Stuart Guerrero APRN.CNP [address] [place] [address] [address] Referral ID Status Reason Start Date Expiration Date Visits Requested Visits Authorized [id number] Pending Review Auto-Generat ed Referral 04/11/2023 6 1 [facility] for referral (narrative)* Diagnostic Procedure Only (Routine) - Authorized Specialty Diagnoses / Procedures Referred By Contac t Referred To Contact [facility] Diagnoses Female infertility Procedures FOLLICULAR US [facility] US PELVIC NONOBSTETRIC IMAGE CELESTETBeth[place] LIMITED/F/U Stuart Guerrero APRN.CNP [address] [place] [address] [facility] [address] [place] [address] Referral ID Status Reason Start Date Expiration Date Visits Requested Visits Authorized [id number] Authorized Auto-Generat ed Referral 07/24/2022 07/24/2023 1 1 [facility] for referral (narrative)* Diagnostic Procedure Only (Routine) - Authorized Specialty Diagnoses / Procedures Referred By Contac t Referred To Contact [facility] Diagnoses Female infertility Procedures FOLLICULAR US WHI US PELVIC NONOBSTETRIC IMAGE DCMTN LIMITED/F/U Marina Boswell APRN.CITY PLANNER [address] [facility] [address] [place] [id number] [place] [address] Referral ID Status Reason Start Date Expiration Date Visits Requested Visits Authorized [id number] Authorized Auto-Generat ed Referral 08/28/2022 08/28/2023 6 1 [facility] for referral (narrative)No reason for referral information [facility]WMagr[facility] Work Phone: Reason for visit Narrative* Diagnostic Procedure Only (Routine) - Closed Specialty Diagnoses / Procedures Referred By Contac t Referred To Contact [facility] Diagnoses Female infertility Procedures FOLLICULAR US WHI US PELVIC NONOBSTETRIC IMAGE DCMTN LIMITED/F/U Shelby Rojas PA-C [address] [place] [address] [place] [id number] Referral ID Status Reason Start Date Expiration Date V isits Requested Visits Authorized [id number] Closed Auto-Generate d Referral 07/05/2022 07/05/2023 6 6 [facility] for visit Narrative* Diagnostic Procedure Only (Routine) - Authorized Specialty Diagnoses / Procedures Referred By Contac t Referred To Contact [facility] Diagnoses Encounter for fertility testing Procedures FOLLICULAR US WHI US PELVIC NONOBSTETRIC IMAGE DCMTN LIMITED/F/U Stuart Guerrero APRN.CITY PL[employer]NER [address] [place] [address] [facility] [address] [place] [address] Referral ID Status Reason Start Date Expiration Date Visits Requested Visits Authorized [id number] Authorized Auto-Generat ed Referral 11/14/2022 06/17/2023 6 6 [facility] for visit Narrative* Radiology Services (Routine) - New Request Specialty Diagnoses / Procedures Referred By Contac t Referred To Contact [facility] Interventional Diagnoses Anorectal malformation Other constipation History of antegrade continence enema procedure Procedures IR Cecostomy Exchange with Fluoro IR Consult Andres Fitzgerald APN [address] [address] Phone: tel: fax: Referral ID Status Reason Start Date Expiration Date V isits Requested Visits Authorized [id number] New Request 04/10/2024 1 1 [facility] for visit Narrative* Radiology Services (Routine) - New Request Specialty Diagnoses / Procedures Referred By Vaalrie t Referred To Contact [facility] Ultrasound Diagnoses Anorectal malformation Procedures US Kidney Jerry, Jesse, CPNP [address] [place] [address] Phone: tel: fax: Referral ID Status Reason Start Date Expiration Date V isits Requested Visits Authorized [id number] New Request 04/09/2024 1 1 [facility] Summary Purpose Family History Relationship Condition Age at Onset Recorded Date/T rika grandfather Malignant neoplasm 55 father Diabetes mellitus Unknown uncle Multiple sclerosis Unknown mother Lymphedema Unknown grandfather Lymphedema Unknown Advance Directives Documents on File Type Date Recorded Patient Assembler For Puller Over Hand Expl anation Advance Directive(s) 05/24/2020 6:40 PM Advance Directive(s) 05/05/2020 11:58 AM Advance Directive(s) 03/25/2020 1:38 PM Documents on File Type Date Recorded Patient Assembler For Puller Over Hand Expl anation Advance Directive(s) 05/24/2020 6:40 PM Advance Directive(s) 05/05/2020 11:58 AM Advance Directive(s) 03/25/2020 1:38 PM Advance Directive Response Recorded Date/ Time Advance Directives No April 3:11pm Reason for Referral Specialty Diagnoses / Procedures Referred By Contac t Referred To Contact Marina Boswell APRN.CITY PLANNER [address] [place] [address] Referral ID Status Reason Start Date Expiration Date V isits Requested Visits Authorized [id number] Authorized 08/28/2022 10/28/2022 1 1 Specialty Diagnoses / Procedures Referred By Contac t Referred To Contact [facility] Interventional Diagnoses Anorectal malformation Procedures IR Consult Chaitanya Akins APN [address] [place] [address] Referral ID Status Reason Start Date Expiration Date V isits Requested Visits Authorized [id number] New Request 04/08/2024 1 1 Specialty Diagnoses / Procedures Referred By Contac t Referred To Contact Diagnoses Anorectal malformation Procedures XR Abdomen - Supine Chaitanya Akins CLOTH EXAMINER MACHINE [address] [place] [address] Referral ID Status Reason Start Date Expiration Date V isits Requested Visits Authorized [id number] New Request 04/09/2024 1 1 Specialty Diagnoses / Procedures Referred By Contac t Referred To Contact [facility] Interventional Diagnoses Anorectal malformation Other constipation History of antegrade continence enema procedure Procedures IR Consult Andres Ftizgerald APN [address] [place] [address] Referral ID Status Reason Start Date Expiration Date V isits Requested Visits Authorized [id number] New Request 04/10/2024 1 1 Specialty Diagnoses / Procedures Referred By Contac t Referred To Contact Diagnoses Anorectal malformation Other constipation History of antegrade continence enema procedure Procedures XR Abdomen - Supine Andres Fitzgerald APN [address] [place] [address] Referral ID Status Reason Start Date Expiration Date V isits Requested Visits Authorized [id number] New Request 04/10/2024 1 1 Specialty Diagnoses / Procedures Referred By Contac t Referred To Contact [facility] Interventional Diagnoses Anorectal malformation Procedures IR Cecostomy Exchange with Fluoro IR Consult Chaitanya Akins APN [address] [place] [address] Chief Complaint and Reason for Visit Chief Complaint Admit Date Confirmation for / Vitals October 14, 2024 9:01am NOB IVF transfer 09/09October 24, 2024 11:2 6am Reason for Visit Admit Date Advanced maternal age (AMA) in October 14, 2024 9:01am Anxiety and depression October 14, 2024 9:01am 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 9:01am History of miscarriage, currently pregna nt October 14, 2024 9:01am Hx of maternal blood transfusion, jose tlgaudencio October 14, 2024 9:01am Hypothyroidism affecting October 14, 2024 9:01am In vitro fertilization October 14, 2024 9:01am October 14, 2024 9:0 1am Supervision of high-risk October 14, 2024 9:01am Advanced maternal age (AMA) in October 24, 2024 11:26am Anxiety and depression October 24, 2024 11: 26am 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, 025 11:26am History of miscarriage, currently pregna nt October 24, 2024 11:26am Hx of maternal blood transfusion, jose bansal October 24, 2024 11:26am Hypothyroidism affecting October 242024 11:26am In vitro fertilization October 24, 2024 11: 26am Lipoma of back October 24, 2024 11:26a m October 24, 2024 11:26a m Supervision of high-risk October 242024 11:26am 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, 2024 11:26a m 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 11: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 11:26am Duplicate cervix October 24, 2024 11:26a m Hydrosalpinx October 24, 2024 11:26a m Imperforate anus October 24, 2024 11:26a m 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 24, 2024 11:26a m Recto-vaginal fistula October 24, 2024 11:2 6am Tethered cord October 24, 2024 11:26a m Chief Complaint Admit Date Confirmation for / Vitals October 14, 2024 9:01am NOB IVF transfer 09/09October 24, 2024 11:2 6am 10W 1D HeartBeat CK per JV October 30 9:03am Reason for Visit Admit Date Advanced maternal age (AMA) in October 14, 2024 9:01am Anxiety and depression October 14, 2024 9:01am 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 9:01am History of miscarriage, currently pregna nt October 14, 2024 9:01am Hx of maternal blood transfusion, jose bansal October 14, 2024 9:01am Hypothyroidism affecting October 14, 2024 9:01am In vitro fertilization October 14, 2024 9:01am October 14, 2024 9:0 1am Supervision of high-risk October 14, 2024 9:01am Advanced maternal age (AMA) in October 24, 2024 11:26am Anxiety and depression October 24, 2024 11: 26am 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, 025 11:26am History of miscarriage, currently pregna nt October 24, 2024 11:26am Hx of maternal blood transfusion, jose bansal October 24, 2024 11:26am Hypothyroidism affecting October 242024 11:26am In vitro fertilization October 24, 2024 11: 26am October 24, 2024 11:26a m Supervision of high-risk October 242024 11:26am 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, 2024 11:26a m 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 11:26am 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 24, 2024 11:26a m Recto-vaginal fistula October 24, 2024 11:2 6am Tethered cord October 24, 2024 11:26a m 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 11:26am Duplicate cervix October 24, 2024 11:26a m Hydrosalpinx October 24, 2024 11:26a m Imperforate anus October 24, 2024 11:26a m Lipoma of back October 24, 2024 11:26a m Advanced maternal age (AMA) in October 30, 2024 9:03am Anxiety and depression October 30, 2024 9: 03am 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 30, 2024 9:03am History of miscarriage, currently pregna nt October 30, 2024 9:03am Hx of maternal blood transfusion, jose bansal October 30, 2024 9:03am Hypothyroidism affecting October 162024 9:03am In vitro fertilization October 30, 2024 9: 03am October 30, 2024 9:03a m Supervision of high-risk October 162024 9:03am UTI (urinary tract infection) during pre gnancy October 30, 2024 9:03am 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, 2024 9:03a m 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 9:03am 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 30, 2024 9:03a m Recto-vaginal fistula October 30, 2024 9:0 3am Tethered cord October 30, 2024 9:03a m 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 9:03am 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, 2024 9:03a m Lipoma of back October 30, 2024 9:03a m Chief Complaint Admit Date Confirmation for / Vitals October 14, 2024 9:01am NOB IVF transfer 09/09October 24, 2024 11:2 6am 10W 1D HeartBeat CK per JV October 30 9:03am Repeat Urine Culture November 06, 2024 2:01 pm Reason for Visit Admit Date Advanced maternal age (AMA) in October 14, 2024 9:01am Anxiety and depression October 14, 2024 9:01am 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 9:01am History of miscarriage, currently pregna nt October 14, 2024 9:01am Hx of maternal blood transfusion, jose bansal October 14, 2024 9:01am Hypothyroidism affecting October 14, 2024 9:01am In vitro fertilization October 14, 2024 9:01am October 14, 2024 9:0 1am Supervision of high-risk October 14, 2024 9:01am Advanced maternal age (AMA) in October 24, 2024 11:26am Anxiety and depression October 24, 2024 11: 26am 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, 2 025 11:26am History of miscarriage, currently pregna nt October 24, 2024 11:26am Hx of maternal blood transfusion, jose bansal October 24, 2024 11:26am Hypothyroidism affecting October 242024 11:26am In vitro fertilization October 24, 2024 11: 26am October 24, 2024 11:26a m Supervision of high-risk October 242024 11:26am 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, 2024 11:26a m 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 11:26am 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 24, 2024 11:26a m Recto-vaginal fistula October 24, 2024 11:2 6am Tethered cord October 24, 2024 11:26a m 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 11:26am Duplicate cervix October 24, 2024 11:26a m Hydrosalpinx October 24, 2024 11:26a m Imperforate anus October 24, 2024 11:26a m Lipoma of back October 24, 2024 11:26a m Advanced maternal age (AMA) in October 30, 2024 9:03am Anxiety and depression October 30, 2024 9: 03am 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 30, 2024 9:03am History of miscarriage, currently pregna nt October 30, 2024 9:03am Hx of maternal blood transfusion, jose bansal October 30, 2024 9:03am Hypothyroidism affecting October 162024 9:03am In vitro fertilization October 30, 2024 9: 03am October 30, 2024 9:03a m Supervision of high-risk October 162024 9:03am UTI (urinary tract infection) during pre gnancy October 30, 2024 9:03am 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, 2024 9:03a m 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 9:03am 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 30, 2024 9:03a m Recto-vaginal fistula October 30, 2024 9:0 3am Tethered cord October 30, 2024 9:03a m 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 9:03am 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, 2024 9:03a m Lipoma of back October 30, 2024 9:03a m Advanced maternal age (AMA) in November 06, 2024 2:01pm Anxiety and depression November 06, 2024 2: 01pm 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 06, 2024 2:01pm History of miscarriage, currently pregna nt November 06, 2024 2:01pm Hx of maternal blood transfusion, jose [email or web address] November 06, 2024 2:01pm Hypothyroidism affecting October 172024 2:01pm In vitro fertilization November 06, 2024 2: 01pm November 06, 2024 2:01p m Supervision of high-risk October 172024 2:01pm UTI (urinary tract infection) during pre gnancy November 06, 2024 2:01pm VACTERL syndrome November 06, 2024 2:01p m 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 d2024 2:01pm Rectal atresia November 06, 2024 2:01p m Recto-vaginal fistula November 06, 2024 2:0 1pm Tethered cord November 06, 2024 2:01p m Chief Complaint Admit Date Confirmation for / Vitals October 14, 2024 9:01am NOB IVF transfer 09/09October 24, 2024 11:2 6am 10W 1D HeartBeat CK per JV October 30 9:03am Repeat Urine Culture November 06, 2024 2:01 pm 12 wk ob November 13, 2024 8:07a m Reason for Visit Admit Date Advanced maternal age (AMA) in October 14, 2024 9:01am Anxiety and depression October 14, 2024 9:01am 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 9:01am History of miscarriage, currently pregna nt October 14, 2024 9:01am Hx of maternal blood transfusion, jose tly October 14, 2024 9:01am Hypothyroidism affecting October 14, 2024 9:01am In vitro fertilization October 14, 2024 9:01am October 14, 2024 9:0 1am Supervision of high-risk October 14, 2024 9:01am Advanced maternal age (AMA) in October 24, 2024 11:26am Anxiety and depression October 24, 2024 11: 26am 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, 2 025 11:26am History of miscarriage, currently pregna nt October 24, 2024 11:26am Hx of maternal blood transfusion, curren tly October 24, 2024 11:26am Hypothyroidism affecting October 242024 11:26am In vitro fertilization October 24, 2024 11: 26am October 24, 2024 11:26a m Supervision of high-risk October 242024 11:26am 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, 2024 11:26a m 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 11:26am 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 24, 2024 11:26a m Recto-vaginal fistula October 24, 2024 11:2 6am Tethered cord October 24, 2024 11:26a m 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 11:26am Duplicate cervix October 24, 2024 11:26a m Hydrosalpinx October 24, 2024 11:26a m Imperforate anus October 24, 2024 11:26a m Lipoma of back October 24, 2024 11:26a m Advanced maternal age (AMA) in October 30, 2024 9:03am Anxiety and depression October 30, 2024 9: 03am 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 30, 2024 9:03am History of miscarriage, currently pregna nt October 30, 2024 9:03am Hx of maternal blood transfusion, curren tly October 30, 2024 9:03am Hypothyroidism affecting October 162024 9:03am In vitro fertilization October 30, 2024 9: 03am October 30, 2024 9:03a m Supervision of high-risk October 162024 9:03am UTI (urinary tract infection) during pre gnancy October 30, 2024 9:03am 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, 2024 9:03a m 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 9:03am 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 30, 2024 9:03a m Recto-vaginal fistula October 30, 2024 9:0 3am Tethered cord October 30, 2024 9:03a m 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 15t h, 2024 9:03am 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, 2024 9:03a m Lipoma of back October 30, 2024 9:03a m Advanced maternal age (AMA) in November 06, 2024 2:01pm Anxiety and depression November 06, 2024 2: 01pm 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 06, 2024 2:01pm History of miscarriage, currently pregna nt November 06, 2024 2:01pm Hx of maternal blood transfusion, jose tly November 06, 2024 2:01pm Hypothyroidism affecting October 172024 2:01pm In vitro fertilization November 06, 2024 2: 01pm November 06, 2024 2:01p m Supervision of high-risk October 172024 2:01pm UTI (urinary tract infection) during pre gnancy November 06, 2024 2:01pm VACTERL syndrome November 06, 2024 2:01p m 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 2:01pm Rectal atresia November 06, 2024 2:01p m Recto-vaginal fistula November 06, 2024 2:0 1pm Tethered cord November 06, 2024 2:01p m Advanced maternal age (AMA) in November 13, 2024 8:07am Anxiety and depression November 13, 2024 8: 07am 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 13, 2024 8:07am History of miscarriage, currently pregna nt November 13, 2024 8:07am Hx of maternal blood transfusion, curren tly November 13, 2024 8:07am Hypothyroidism affecting October 172024 8:07am In vitro fertilization November 13, 2024 8: 07am November 13, 2024 8:07a m Supervision of high-risk October 172024 8:07am UTI (urinary tract infection) during pre gnancy November 13, 2024 8:07am VACTERL syndrome November 13, 2024 8:07a m 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 8:07am Rectal atresia November 13, 2024 8:07a m Recto-vaginal fistula November 13, 2024 8:0 7am Tethered cord November 13, 2024 8:07a m Chief Complaint Admit Date Confirmation for / Vitals October 14, 2024 9:01am NOB IVF transfer 09/09October 24, 2024 11:2 6am 10W 1D HeartBeat CK per JV October 30 9:03am Repeat Urine Culture November 06, 2024 2:01 pm 12 wk ob November 13, 2024 8:07a m UTI check November 18, 2024 2:10p m SPOTTING November 18, 2024 2:24p m Reason for Visit Admit Date Advanced maternal age (AMA) in October 14, 2024 9:01am Anxiety and depression October 14, 2024 9:01am 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 9:01am History of miscarriage, currently pregna nt October 14, 2024 9:01am Hx of maternal blood transfusion, curren tly October 14, 2024 9:01am Hypothyroidism affecting October 14, 2024 9:01am In vitro fertilization October 14, 2024 9:01am October 14, 2024 9:0 1am Supervision of high-risk October 14, 2024 9:01am Advanced maternal age (AMA) in October 24, 2024 11:26am Anxiety and depression October 24, 2024 11: 26am 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, 2 025 11:26am History of miscarriage, currently pregna nt October 24, 2024 11:26am Hx of maternal blood transfusion, curren tly October 24, 2024 11:26am Hypothyroidism affecting October 242024 11:26am In vitro fertilization October 24, 2024 11: 26am October 24, 2024 11:26a m Supervision of high-risk October 242024 11:26am 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, 2024 11:26a m 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 11:26am 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 24, 2024 11:26a m Recto-vaginal fistula October 24, 2024 11:2 6am Tethered cord October 24, 2024 11:26a m 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 11:26am Duplicate cervix October 24, 2024 11:26a m Hydrosalpinx October 24, 2024 11:26a m Imperforate anus October 24, 2024 11:26a m Lipoma of back October 24, 2024 11:26a m Advanced maternal age (AMA) in October 30, 2024 9:03am Anxiety and depression October 30, 2024 9: 03am 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 30, 2024 9:03am History of miscarriage, currently pregna nt October 30, 2024 9:03am Hx of maternal blood transfusion, curren tly October 30, 2024 9:03am Hypothyroidism affecting October 162024 9:03am In vitro fertilization October 30, 2024 9: 03am October 30, 2024 9:03a m Supervision of high-risk October 162024 9:03am UTI (urinary tract infection) during pre gnancy October 30, 2024 9:03am 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, 2024 9:03a m 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 152024 9:03am 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 30, 2024 9:03a m Recto-vaginal fistula October 30, 2024 9:0 3am Tethered cord October 30, 2024 9:03a m 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 9:03am 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, 2024 9:03a m Lipoma of back October 30, 2024 9:03a m Advanced maternal age (AMA) in November 06, 2024 2:01pm Anxiety and depression November 06, 2024 2: 01pm 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 06, 2024 2:01pm History of miscarriage, currently pregna nt November 06, 2024 2:01pm Hx of maternal blood transfusion, curren tly November 06, 2024 2:01pm Hypothyroidism affecting October 172024 2:01pm In vitro fertilization November 06, 2024 2: 01pm November 06, 2024 2:01p m Supervision of high-risk October 172024 2:01pm UTI (urinary tract infection) during pre gnancy November 06, 2024 2:01pm VACTERL syndrome November 06, 2024 2:01p m 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 2:01pm Rectal atresia November 06, 2024 2:01p m Recto-vaginal fistula November 06, 2024 2:0 1pm Tethered cord November 06, 2024 2:01p m Advanced maternal age (AMA) in November 13, 2024 8:07am Anxiety and depression November 13, 2024 8: 07am 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 13, 2024 8:07am History of miscarriage, currently pregna nt November 13, 2024 8:07am Hx of maternal blood transfusion, jose tly November 13, 2024 8:07am Hypothyroidism affecting October 172024 8:07am In vitro fertilization November 13, 2024 8: 07am November 13, 2024 8:07a m Supervision of high-risk October 172024 8:07am UTI (urinary tract infection) during pre gnancy November 13, 2024 8:07am VACTERL syndrome November 13, 2024 8:07a m 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 8:07am Rectal atresia November 13, 2024 8:07a m Recto-vaginal fistula November 13, 2024 8:0 7am Tethered cord November 13, 2024 8:07a m Advanced maternal age (AMA) in November 18, 2024 2:10pm Anxiety and depression November 18, 2024 2: 10pm 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 18, 2024 2:10pm History of miscarriage, currently pregna nt November 18, 2024 2:10pm Hx of maternal blood transfusion, curren tly November 18, 2024 2:10pm Hypothyroidism affecting November 18, 2024 2:10pm In vitro fertilization November 18, 2024 2: 10pm November 18, 2024 2:10p m Spotting affecting in first tr imester November 18, 2024 2:10pm Supervision of high-risk November 18, 2024 2:10pm VACTERL syndrome November 18, 2024 2:10p m Congenital duplication of vagina November 2:10pm Rectal atresia November 18, 2024 2:10p m Recto-vaginal fistula November 18, 2024 2:1 0pm Tethered cord November 18, 2024 2:10p m Chief Complaint Admit Date Confirmation for / Vitals October 14, 2024 9:01am NOB IVF transfer 09/09October 24, 2024 11:2 6am 10W 1D HeartBeat CK per JV October 30 9:03am Repeat Urine Culture November 06, 2024 2:01 pm 12 wk ob November 13, 2024 8:07a m UTI check November 18, 2024 2:10p m SPOTTING November 18, 2024 2:24p m 14wk OB * DOC ONLY November 26, 2024 2:33 pm Reason for Visit Admit Date Advanced maternal age (AMA) in October 14, 2024 9:01am Anxiety and depression October 14, 2024 9:01am 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 9:01am History of miscarriage, currently pregna nt October 14, 2024 9:01am Hx of maternal blood transfusion, jose bansal October 14, 2024 9:01am Hypothyroidism affecting October 14, 2024 9:01am In vitro fertilization October 14, 2024 9:01am October 14, 2024 9:0 1am Supervision of high-risk October 14, 2024 9:01am Advanced maternal age (AMA) in October 24, 2024 11:26am Anxiety and depression October 24, 2024 11: 26am 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, 2 025 11:26am History of miscarriage, currently pregna nt October 24, 2024 11:26am Hx of maternal blood transfusion, jose tlgaudencio October 24, 2024 11:26am Hypothyroidism affecting October 242024 11:26am In vitro fertilization October 24, 2024 11: 26am October 24, 2024 11:26a m Supervision of high-risk October 242024 11: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 11:26am 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 24, 2024 11:26a m Recto-vaginal fistula October 24, 2024 11:2 6am Tethered cord October 24, 2024 11:26a m 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 11:26am Duplicate cervix October 24, 2024 11:26a m Hydrosalpinx October 24, 2024 11:26a m Imperforate anus October 24, 2024 11:26a m Lipoma of back October 24, 2024 11:26a m 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, 2024 11:26a m Advanced maternal age (AMA) in October 30, 2024 9:03am Anxiety and depression October 30, 2024 9: 03am 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 30, 2024 9:03am History of miscarriage, currently pregna nt October 30, 2024 9:03am Hx of maternal blood transfusion, curren tly October 30, 2024 9:03am Hypothyroidism affecting October 162024 9:03am In vitro fertilization October 30, 2024 9: 03am October 30, 2024 9:03a m Supervision of high-risk October 162024 9:03am UTI (urinary tract infection) during pre gnancy October 30, 2024 9:03am 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 9:03am 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 30, 2024 9:03a m Recto-vaginal fistula October 30, 2024 9:0 3am Tethered cord October 30, 2024 9:03a m 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 15t h, 2024 9:03am 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, 2024 9:03a m Lipoma of back October 30, 2024 9:03a m 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, 2024 9:03a m Advanced maternal age (AMA) in November 06, 2024 2:01pm Anxiety and depression November 06, 2024 2: 01pm 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 06, 2024 2:01pm History of miscarriage, currently pregna nt November 06, 2024 2:01pm Hx of maternal blood transfusion, curren tly November 06, 2024 2:01pm Hypothyroidism affecting October 172024 2:01pm In vitro fertilization November 06, 2024 2: 01pm November 06, 2024 2:01p m Supervision of high-risk October 172024 2:01pm UTI (urinary tract infection) during pre gnancy November 06, 2024 2:01pm 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 2:01pm Rectal atresia November 06, 2024 2:01p m Recto-vaginal fistula November 06, 2024 2:0 1pm Tethered cord November 06, 2024 2:01p m VACTERL syndrome November 06, 2024 2:01p m Advanced maternal age (AMA) in November 13, 2024 8:07am Anxiety and depression November 13, 2024 8: 07am 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 13, 2024 8:07am History of miscarriage, currently pregna nt November 13, 2024 8:07am Hx of maternal blood transfusion, jose tly November 13, 2024 8:07am Hypothyroidism affecting October 172024 8:07am In vitro fertilization November 13, 2024 8: 07am November 13, 2024 8:07a m Supervision of high-risk October 172024 8:07am UTI (urinary tract infection) during pre gnancy November 13, 2024 8:07am 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 8:07am Rectal atresia November 13, 2024 8:07a m Recto-vaginal fistula November 13, 2024 8:0 7am Tethered cord November 13, 2024 8:07a m VACTERL syndrome November 13, 2024 8:07a m Advanced maternal age (AMA) in November 18, 2024 2:10pm Anxiety and depression November 18, 2024 2: 10pm 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 18, 2024 2:10pm History of miscarriage, currently pregna nt November 18, 2024 2:10pm Hx of maternal blood transfusion, jose tly November 18, 2024 2:10pm Hypothyroidism affecting November 18, 2024 2:10pm In vitro fertilization November 18, 2024 2: 10pm November 18, 2024 2:10p m Spotting affecting in first tr imester November 18, 2024 2:10pm Supervision of high-risk November 18, 2024 2:10pm Congenital duplication of vagina November 2:10pm Rectal atresia November 18, 2024 2:10p m Recto-vaginal fistula November 18, 2024 2:1 0pm Tethered cord November 18, 2024 2:10p m VACTERL syndrome November 18, 2024 2:10p m Advanced maternal age (AMA) in November 26, 2024 2:33pm Anxiety and depression November 26, 2024 2 :33pm ARM (anorectal malformation) November 26, 2024 2:33pm 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 26, 2024 2:33pm History of miscarriage, currently pregna nt November 26, 2024 2:33pm Hx of maternal blood transfusion, jose tly November 26, 2024 2:33pm Hypothyroidism affecting November 26, 2024 2:33pm In vitro fertilization November 26, 2024 2 :33pm November 26, 2024 2:33 pm Spotting affecting in first tr imester November 26, 2024 2:33pm Supervision of high-risk November 26, 2024 2:33pm UTI (urinary tract infection) during pre gnancy November 26, 2024 2:33pm Congenital duplication of vagina November 262024 2:33pm Rectal atresia November 26, 2024 2:33 pm Recto-vaginal fistula November 26, 2024 2: 33pm Tethered cord November 26, 2024 2:33 pm 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, 2024 2:33 pm Chief Complaint Admit Date Confirmation for / Vitals October 14, 2024 9:01am NOB IVF transfer 09/09October 24, 2024 11:2 6am 10W 1D HeartBeat CK per JV October 30 9:03am Repeat Urine Culture November 06, 2024 2:01 pm 12 wk ob November 13, 2024 8:07a m UTI check November 18, 2024 2:10p m Additional Source Comments INFORMATION SOURCE (unrecogn ized section and content) DATE CREATED AUTHOR 11/01/2019 Malina [facility] DATE CREATED AUTHOR AUTHOR'S ORGANIZ ATION 12/03/2020 [facility] DATE CREATED AUTHOR AUTHOR'S ORGANIZ ATION 03/17/2021 Carmelo Myers [facility] DATE CREATED AUTHOR AUTHOR'S ORGANIZ ATION 06/16/2021 [facility] DATE CREATED AUTHOR AUTHOR'S ORGANIZ ATION 06/09/2022 [facility] DATE CREATED AUTHOR AUTHOR'S ORGANIZ ATION 11/11/[address] [facility] DATE CREATED AUTHOR AUTHOR'S ORGANIZ ATION 11/14/2023 [facility] DATE CREATED AUTHOR AUTHOR'S ORGANIZ ATION 11/17/2023 [facility] DATE CREATED AUTHOR AUTHOR'S ORGANIZ ATION 10/11/2024 [facility] DATE CREATED AUTHOR AUTHOR'S ORGANIZ ATION 10/13/2024 [facility] DATE CREATED AUTHOR AUTHOR'S ORGANIZ ATION 11/28/2024 [facility] DATE CREATED AUTHOR AUTHOR'S ORGANIZ ATION 11/29/2024 [facility] Source Comments (unrecognize d section and content) In the event this informatio n is protected by the Federal Confidentiality of Alcohol and Drug Abuse Patient Records regulations: The Federal rules restrict any use of the information to criminally investigate or prosecute any alcohol or drug abuse patient.[facility] the event this information is protected by the Federal Confidentiality of Alcohol and Drug Abuse Patient Records regulations: The Federal rules restrict any use of the information to criminally investigate or prosecute any alcohol or drug abuse patient.[facility] the event this information is protected by the Federal Confidentiality of Alcohol and Drug Abuse Patient Records regulations: The Federal rules restrict any use of the information to criminally investigate or prosecute any alcohol or drug abuse patient.[facility] the event this information is protected by the Federal Confidentiality of Alcohol and Drug Abuse Patient Records regulations: The Federal rules restrict any use of the information to criminally investigate or prosecute any alcohol or drug abuse patient.[facility] the event this information is protected by the Federal Confidentiality of Alcohol and Drug Abuse Patient Records regulations: The Federal rules restrict any use of the information to criminally investigate or prosecute any alcohol or drug abuse patient.[facility] the event this information is protected by the Federal Confidentiality of Alcohol and Drug Abuse Patient Records regulations: The Federal rules restrict any use of the information to criminally investigate or prosecute any alcohol or drug abuse patient.[facility] the event this information is protected by the Federal Confidentiality of Alcohol and Drug Abuse Patient Records regulations: The Federal rules restrict any use of the information to criminally investigate or prosecute any alcohol or drug abuse patient.[facility] the event this information is protected by the Federal Confidentiality of Alcohol and Drug Abuse Patient Records regulations: The Federal rules restrict any use of the information to criminally investigate or prosecute any alcohol or drug abuse patient.[facility] the event this information is protected by the Federal Confidentiality of Alcohol and Drug Abuse Patient Records regulations: The Federal rules restrict any use of the information to criminally investigate or prosecute any alcohol or drug abuse patient.[facility] the event this information is protected by the Federal Confidentiality of Alcohol and Drug Abuse Patient Records regulations: The Federal rules restrict any use of the information to criminally investigate or prosecute any alcohol or drug abuse patient.[facility] HospitalIn the event this information is protected by the Federal Confidentiality of Alcohol and Drug Abuse Patient Records regulations: The Federal rules restrict any use of the information to criminally investigate or prosecute any alcohol or drug abuse patient.[facility] HospitalIn the event this information is protected by the Federal Confidentiality of Alcohol and Drug Abuse Patient Records regulations: The Federal rules restrict any use of the information to criminally investigate or prosecute any alcohol or drug abuse patient.[facility] HospitalIn the event this information is protected by the Federal Confidentiality of Alcohol and Drug Abuse Patient Records regulations: The Federal rules restrict any use of the information to criminally investigate or prosecute any alcohol or drug abuse patient.[facility] HospitalIn the event this information is protected by the Federal Confidentiality of Alcohol and Drug Abuse Patient Records regulations: The Federal rules restrict any use of the information to criminally investigate or prosecute any alcohol or drug abuse patient.[facility] HospitalIn the event this information is protected by the Federal Confidentiality of Alcohol and Drug Abuse Patient Records regulations: The Federal rules restrict any use of the information to criminally investigate or prosecute any alcohol or drug abuse patient.[facility] HospitalIn the event this information is protected by the Federal Confidentiality of Alcohol and Drug Abuse Patient Records regulations: The Federal rules restrict any use of the information to criminally investigate or prosecute any alcohol or drug abuse patient.[facility] HospitalIn the event this information is protected by the Federal Confidentiality of Alcohol and Drug Abuse Patient Records regulations: The Federal rules restrict any use of the information to criminally investigate or prosecute any alcohol or drug abuse patient.[facility] HospitalIn the event this information is protected by the Federal Confidentiality of Alcohol and Drug Abuse Patient Records regulations: The Federal rules restrict any use of the information to criminally investigate or prosecute any alcohol or drug abuse patient.[facility] HospitalIn the event this information is protected by the Federal Confidentiality of Alcohol and Drug Abuse Patient Records regulations: The Federal rules restrict any use of the information to criminally investigate or prosecute any alcohol or drug abuse patient.[facility] HospitalIn the event this information is protected by the Federal Confidentiality of Alcohol and Drug Abuse Patient Records regulations: The Federal rules restrict any use of the information to criminally investigate or prosecute any alcohol or drug abuse patient.[facility] HospitalIn the event this information is protected by the Federal Confidentiality of Alcohol and Drug Abuse Patient Records regulations: The Federal rules restrict any use of the information to criminally investigate or prosecute any alcohol or drug abuse patient.[facility] HospitalIn the event this information is protected by the Federal Confidentiality of Alcohol and Drug Abuse Patient Records regulations: The Federal rules restrict any use of the information to criminally investigate or prosecute any alcohol or drug abuse patient.[facility] HospitalIn the event this information is protected by the Federal Confidentiality of Alcohol and Drug Abuse Patient Records regulations: The Federal rules restrict any use of the information to criminally investigate or prosecute any alcohol or drug abuse patient.[facility] HospitalIn the event this information is protected by the Federal Confidentiality of Alcohol and Drug Abuse Patient Records regulations: The Federal rules restrict any use of the information to criminally investigate or prosecute any alcohol or drug abuse patient.[facility] HospitalIn the event this information is protected by the Federal Confidentiality of Alcohol and Drug Abuse Patient Records regulations: The Federal rules restrict any use of the information to criminally investigate or prosecute any alcohol or drug abuse patient.[facility] HospitalIn the event this information is protected by the Federal Confidentiality of Alcohol and Drug Abuse Patient Records regulations: The Federal rules restrict any use of the information to criminally investigate or prosecute any alcohol or drug abuse patient.[facility] HospitalIn the event this information is protected by the Federal Confidentiality of Alcohol and Drug Abuse Patient Records regulations: The Federal rules restrict any use of the information to criminally investigate or prosecute any alcohol or drug abuse patient.[facility] HospitalIn the event this information is protected by the Federal Confidentiality of Alcohol and Drug Abuse Patient Records regulations: The Federal rules restrict any use of the information to criminally investigate or prosecute any alcohol or drug abuse patient.[facility] HospitalIn the event this information is protected by the Federal Confidentiality of Alcohol and Drug Abuse Patient Records regulations: The Federal rules restrict any use of the information to criminally investigate or prosecute any alcohol or drug abuse patient.[facility] HospitalIn the event this information is protected by the Federal Confidentiality of Alcohol and Drug Abuse Patient Records regulations: The Federal rules restrict any use of the information to criminally investigate or prosecute any alcohol or drug abuse patient.[facility] HospitalIn the event this information is protected by the Federal Confidentiality of Alcohol and Drug Abuse Patient Records regulations: The Federal rules restrict any use of the information to criminally investigate or prosecute any alcohol or drug abuse patient.[facility] HospitalIn the event this information is protected by the Federal Confidentiality of Alcohol and Drug Abuse Patient Records regulations: The Federal rules restrict any use of the information to criminally investigate or prosecute any alcohol or drug abuse patient.[facility] HospitalIn the event this information is protected by the Federal Confidentiality of Alcohol and Drug Abuse Patient Records regulations: The Federal rules restrict any use of the information to criminally investigate or prosecute any alcohol or drug abuse patient.[facility] HospitalIn the event this information is protected by the Federal Confidentiality of Alcohol and Drug Abuse Patient Records regulations: The Federal rules restrict any use of the information to criminally investigate or prosecute any alcohol or drug abuse patient.[facility] HospitalIn the event this information is protected by the Federal Confidentiality of Alcohol and Drug Abuse Patient Records regulations: The Federal rules restrict any use of the information to criminally investigate or prosecute any alcohol or drug abuse patient.[facility] HospitalIn the event this information is protected by the Federal Confidentiality of Alcohol and Drug Abuse Patient Records regulations: The Federal rules restrict any use of the information to criminally investigate or prosecute any alcohol or drug abuse patient.[facility] HospitalIn the event this information is protected by the Federal Confidentiality of Alcohol and Drug Abuse Patient Records regulations: The Federal rules restrict any use of the information to criminally investigate or prosecute any alcohol or drug abuse patient.[facility] HospitalIn the event this information is protected by the Federal Confidentiality of Alcohol and Drug Abuse Patient Records regulations: The Federal rules restrict any use of the information to criminally investigate or prosecute any alcohol or drug abuse patient.[facility] HospitalIn the event this information is protected by the Federal Confidentiality of Alcohol and Drug Abuse Patient Records regulations: The Federal rules restrict any use of the information to criminally investigate or prosecute any alcohol or drug abuse patient.[facility] HospitalIn the event this information is protected by the Federal Confidentiality of Alcohol and Drug Abuse Patient Records regulations: The Federal rules restrict any use of the information to criminally investigate or prosecute any alcohol or drug abuse patient.[facility] HospitalIn the event this information is protected by the Federal Confidentiality of Alcohol and Drug Abuse Patient Records regulations: The Federal rules restrict any use of the information to criminally investigate or prosecute any alcohol or drug abuse patient.[facility] HospitalIn the event this information is protected by the Federal Confidentiality of Alcohol and Drug Abuse Patient Records regulations: The Federal rules restrict any use of the information to criminally investigate or prosecute any alcohol or drug abuse patient.[facility] HospitalIn the event this information is protected by the Federal Confidentiality of Alcohol and Drug Abuse Patient Records regulations: The Federal rules restrict any use of the information to criminally investigate or prosecute any alcohol or drug abuse patient.[facility] HospitalIn the event this information is protected by the Federal Confidentiality of Alcohol and Drug Abuse Patient Records regulations: The Federal rules restrict any use of the information to criminally investigate or prosecute any alcohol or drug abuse patient.[facility] HospitalIn the event this information is protected by the Federal Confidentiality of Alcohol and Drug Abuse Patient Records regulations: The Federal rules restrict any use of the information to criminally investigate or prosecute any alcohol or drug abuse patient.[facility] HospitalIn the event this information is protected by the Federal Confidentiality of Alcohol and Drug Abuse Patient Records regulations: The Federal rules restrict any use of the information to criminally investigate or prosecute any alcohol or drug abuse patient.[facility] HospitalIn the event this information is protected by the Federal Confidentiality of Alcohol and Drug Abuse Patient Records regulations: The Federal rules restrict any use of the information to criminally investigate or prosecute any alcohol or drug abuse patient.[facility] HospitalIn the event this information is protected by the Federal Confidentiality of Alcohol and Drug Abuse Patient Records regulations: The Federal rules restrict any use of the information to criminally investigate or prosecute any alcohol or drug abuse patient.[facility]In the event this information is protected by the Federal Confidentiality of Alcohol and Drug Abuse Patient Records regulations: The Federal rules restrict any use of the information to criminally investigate or prosecute any alcohol or drug abuse patient.[facility] HospitalIn the event this information is protected by the Federal Confidentiality of Alcohol and Drug Abuse Patient Records regulations: The Federal rules restrict any use of the information to criminally investigate or prosecute any alcohol or drug abuse patient.[facility] HospitalIn the event this information is protected by the Federal Confidentiality of Alcohol and Drug Abuse Patient Records regulations: The Federal rules restrict any use of the information to criminally investigate or prosecute any alcohol or drug abuse patient.[facility] HospitalIn the event this information is protected by the Federal Confidentiality of Alcohol and Drug Abuse Patient Records regulations: The Federal rules restrict any use of the information to criminally investigate or prosecute any alcohol or drug abuse patient.[facility] HospitalIn the event this information is protected by the Federal Confidentiality of Alcohol and Drug Abuse Patient Records regulations: The Federal rules restrict any use of the information to criminally investigate or prosecute any alcohol or drug abuse patient.[facility] HospitalIn the event this information is protected by the Federal Confidentiality of Alcohol and Drug Abuse Patient Records regulations: The Federal rules restrict any use of the information to criminally investigate or prosecute any alcohol or drug abuse patient.[facility] HospitalIn the event this information is protected by the Federal Confidentiality of Alcohol and Drug Abuse Patient Records regulations: The Federal rules restrict any use of the information to criminally investigate or prosecute any alcohol or drug abuse patient.[facility] HospitalIn the event this information is protected by the Federal Confidentiality of Alcohol and Drug Abuse Patient Records regulations: The Federal rules restrict any use of the information to criminally investigate or prosecute any alcohol or drug abuse patient.[facility] HospitalIn the event this information is protected by the Federal Confidentiality of Alcohol and Drug Abuse Patient Records regulations: The Federal rules restrict any use of the information to criminally investigate or prosecute any alcohol or drug abuse patient.[facility] HospitalIn the event this information is protected by the Federal Confidentiality of Alcohol and Drug Abuse Patient Records regulations: The Federal rules restrict any use of the information to criminally investigate or prosecute any alcohol or drug abuse patient.[facility] HospitalIn the event this information is protected by the Federal Confidentiality of Alcohol and Drug Abuse Patient Records regulations: The Federal rules restrict any use of the information to criminally investigate or prosecute any alcohol or drug abuse patient.[facility] HospitalIn the event this information is protected by the Federal Confidentiality of Alcohol and Drug Abuse Patient Records regulations: The Federal rules restrict any use of the information to criminally investigate or prosecute any alcohol or drug abuse patient.[facility] HospitalIn the event this information is protected by the Federal Confidentiality of Alcohol and Drug Abuse Patient Records regulations: The Federal rules restrict any use of the information to criminally investigate or prosecute any alcohol or drug abuse patient.[facility] HospitalIn the event this information is protected by the Federal Confidentiality of Alcohol and Drug Abuse Patient Records regulations: The Federal rules restrict any use of the information to criminally investigate or prosecute any alcohol or drug abuse patient.[facility] HospitalIn the event this information is protected by the Federal Confidentiality of Alcohol and Drug Abuse Patient Records regulations: The Federal rules restrict any use of the information to criminally investigate or prosecute any alcohol or drug abuse patient.[facility] HospitalIn the event this information is protected by the Federal Confidentiality of Alcohol and Drug Abuse Patient Records regulations: The Federal rules restrict any use of the information to criminally investigate or prosecute any alcohol or drug abuse patient.[facility] HospitalIn the event this information is protected by the Federal Confidentiality of Alcohol and Drug Abuse Patient Records regulations: The Federal rules restrict any use of the information to criminally investigate or prosecute any alcohol or drug abuse patient.[facility] HospitalIn the event this information is protected by the Federal Confidentiality of Alcohol and Drug Abuse Patient Records regulations: The Federal rules restrict any use of the information to criminally investigate or prosecute any alcohol or drug abuse patient.[facility] HospitalIn the event this information is protected by the Federal Confidentiality of Alcohol and Drug Abuse Patient Records regulations: The Federal rules restrict any use of the information to criminally investigate or prosecute any alcohol or drug abuse patient.[facility] HospitalIn the event this information is protected by the Federal Confidentiality of Alcohol and Drug Abuse Patient Records regulations: The Federal rules restrict any use of the information to criminally investigate or prosecute any alcohol or drug abuse patient.[facility] HospitalIn the event this information is protected by the Federal Confidentiality of Alcohol and Drug Abuse Patient Records regulations: The Federal rules restrict any use of the information to criminally investigate or prosecute any alcohol or drug abuse patient.[facility] HospitalIn the event this information is protected by the Federal Confidentiality of Alcohol and Drug Abuse Patient Records regulations: The Federal rules restrict any use of the information to criminally investigate or prosecute any alcohol or drug abuse patient.[facility] HospitalIn the event this information is protected by the Federal Confidentiality of Alcohol and Drug Abuse Patient Records regulations: The Federal rules restrict any use of the information to criminally investigate or prosecute any alcohol or drug abuse patient.[facility] HospitalIn the event this information is protected by the Federal Confidentiality of Alcohol and Drug Abuse Patient Records regulations: The Federal rules restrict any use of the information to criminally investigate or prosecute any alcohol or drug abuse patient.[facility] HospitalIn the event this information is protected by the Federal Confidentiality of Alcohol and Drug Abuse Patient Records regulations: The Federal rules restrict any use of the information to criminally investigate or prosecute any alcohol or drug abuse patient.[facility] HospitalIn the event this information is protected by the Federal Confidentiality of Alcohol and Drug Abuse Patient Records regulations: The Federal rules restrict any use of the information to criminally investigate or prosecute any alcohol or drug abuse patient.[facility] HospitalIn the event this information is protected by the Federal Confidentiality of Alcohol and Drug Abuse Patient Records regulations: The Federal rules restrict any use of the information to criminally investigate or prosecute any alcohol or drug abuse patient.[facility] HospitalIn the event this information is protected by the Federal Confidentiality of Alcohol and Drug Abuse Patient Records regulations: The Federal rules restrict any use of the information to criminally investigate or prosecute any alcohol or drug abuse patient.[facility] HospitalIn the event this information is protected by the Federal Confidentiality of Alcohol and Drug Abuse Patient Records regulations: The Federal rules restrict any use of the information to criminally investigate or prosecute any alcohol or drug abuse patient.[facility] HospitalIn the event this information is protected by the Federal Confidentiality of Alcohol and Drug Abuse Patient Records regulations: The Federal rules restrict any use of the information to criminally investigate or prosecute any alcohol or drug abuse patient.[facility] HospitalIn the event this information is protected by the Federal Confidentiality of Alcohol and Drug Abuse Patient Records regulations: The Federal rules restrict any use of the information to criminally investigate or prosecute any alcohol or drug abuse patient.[facility] Teams (unrecognized sec tion and content) 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 Start Date End Date Imani Helm DO [address] [place] [address] PCP - General Family Practice 09/25/19 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 Start Date End Date Imani Helm DO [address] [place] [address] PCP - General Family Practice 09/25/19 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 Start Date End Date Imani Hlem DO [address] [place] [address] PCP - General Family Practice 09/25/19 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 Start Date End Date Imani Helm DO [address] [place] [address] PCP - General Family Practice 09/25/19 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 Start Date End Date Imani Helm DO [address] [place] [address] PCP - General Family Practice 09/25/19 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 Start Date End Date Imani Helm DO [address] [place] [address] PCP - General Family Practice 09/25/19 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 Start Date End Date Imani Helm DO [address] [place] [address] PCP - General Family Practice 09/25/19 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 Start Date End Date Imani Helm DO [address] [place] [address] PCP - General Family Practice 09/25/19 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 Start Date End Date Imani Helm DO [address] [place] [address] PCP - General Family Practice 09/25/19 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 Start Date End Date Imani Helm DO [address] [place] [address] PCP - General Family Practice 09/25/19 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 Start Date End Date Imani Helm DO [address] [place] [address] PCP - General Family Practice 09/25/19 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 Start Date End Date Imani Helm DO [address] [place] [address] PCP - General Family Practice 09/25/19 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 Start Date End Date Imani Helm DO [address] [place] [address] PCP - General Family Practice 09/25/19 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 Start Date End Date Imani HelmDO PCP - General Family Medicine 09/25/19 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 Start Date End Date Imani HelmDO PCP - General Family Medicine 09/25/19 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 Start Date End Date Imani Helm DO [place] PCP - General Family Medicine 09/25/19 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 Start Date End Date Imani Helm DO PCP - General Family Medicine 09/25/19 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 Start Date End Date Imani Helm DO PCP - General Family Medicine 09/25/19 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 Start Date End Date Imani Helm DO PCP - General Family Medicine 09/25/19 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 Start Date End Date Imani Helm DO PCP - General Family Medicine 09/25/19 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 Start Date End Date Imani Helm DO PCP - General Family Medicine 09/25/19 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 Start Date End Date Imani Helm DO PCP - General Family Medicine 09/25/19 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 Start Date End Date Imani Helm DO PCP - General Family Medicine 09/25/19 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 Start Date End Date Imani Helm DO PCP - General Family Medicine 09/25/19 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 Start Date End Date Imani Helm DO PCP - General Family Medicine 09/25/19 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 Start Date End Date Imani Helm DO PCP - General Family Medicine 09/25/19 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 Start Date End Date Imani Helm DO PCP - General Family Medicine 09/25/19 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 Start Date End Date Imani Helm DO PCP - General Family Medicine 09/25/19 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 Start Date End Date Imani Helm DO PCP - General Family Medicine 09/25/19 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 Start Date End Date Imani Helm DO PCP - General Family Medicine 09/25/19 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 Start Date End Date Imani Helm DO PCP - General Family Medicine 09/25/19 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 Start Date End Date Imani Helm DO PCP - General Family Medicine 09/25/19 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 Start Date End Date Imani Helm DO PCP - General Family Medicine 09/25/19 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 Start Date End Date Imani Helm DO PCP - General Family Medicine 09/25/19 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 Start Date End Date Imani Helm DO PCP - General Family Medicine 09/25/19 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 Start Date End Date Imani Helm DO PCP - General Family Medicine 09/25/19 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 Start Date End Date Imani Helm DO PCP - General Family Medicine 09/25/19 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 Start Date End Date Imani Helm DO PCP - General Family Medicine 09/25/19 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 Start Date End Date Imani Helm DO PCP - General Family Medicine 09/25/19 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 Start Date End Date Imani Helm DO PCP - General Family Medicine 09/25/19 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 Start Date End Date Imani Helm DO PCP - General Family Medicine 09/25/19 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 Start Date End Date Imani Helm DO PCP - General Family Medicine 09/25/19 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 Start Date End Date Imani Helm DO PCP - General Family Medicine 09/25/19 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 Start Date End Date Imani Helm DO PCP - General Family Medicine 09/25/19 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 Start Date End Date Imani Helm [address] [place] [id number] PCP - General 07/26/20 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 Start Date End Date Imani Helm [address] [place] [id number] PCP - General 07/26/20 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 Start Date End Date Imani Helm [address] [place] [id number] PCP - General 07/26/20 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 Start Date End Date Imani Helm [address] [place] [id number] PCP - General 07/26/20 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 Start Date End Date Imani Helm [address] [place] [address] [address] [place], [place] [phone] PCP - General 07/26/20 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 Imani Helm DO Primary Care Provider Active Team Status: Inactive Member Role Status Dates Dr. Imani Helm DO Primary Care Provider Active Start: October 14, 2024 End: October 14, 2024 Dr. Imani Helm DO Referring Provider Active St art: October 14, 2024 End: October 14, 2024 Dr. Kaila Henderson MD Attending Provider Active Start: October 14, 2024 End: October 14, 2024 Team Status: Inactive Member Role Status Dates Dr. Imani Helm DO Primary Care Provider Active Start: October 24, 2024 End: October 24, 2024 Dr. Imani Helm DO Referring Provider Active St art: October 24, 2024 End: October 24, 2024 Dr. Iman Jolley DO Attending Provider Activ e Start: October 24, 2024 End: October 24, 2024 Team Status: Inactive Member Role Status Dates Dr. Imani Helm DO Primary Care Provider Active Start: October 24, 2024 End: October 24, 2024 Dr. Kaila Henderson MD Attending Provider Active Start: October 24, 2024 End: October 24, 2024 Dr. Kaila Henderson MD Referring Provider Active Start: October 24, 2024 End: October 24, 2024 Team Status: Inactive Member Role Status Dates Dr. Imani Helm DO Primary Care Provider Active Start: October 30, 2024 End: October 30, 2024 Dr. Imani Helm DO Referring Provider Active St art: October 30, 2024 End: October 30, 2024 Dr. Kaila Henderson MD Attending Provider Active Start: October 30, 2024 End: October 30, 2024 Team Status: Active Member Role Status Dates Dr. Imani Helm DO Primary Care Provider Active Start: October 30, 2024 Dr. Kaila Henderson MD Attending Provider Active Start: October 30, 2024 Dr. Kaila Henderson MD Referring Provider Active Start: October 30, 2024 Team Status: Inactive Member Role Status Dates Dr. Imani Helm DO Primary Care Provider Active Start: October 30, 2024 End: October 30, 2024 Dr. Kaila Henderson MD Attending Provider Active Start: October 30, 2024 End: October 30, 2024 Dr. Kaila Henderson MD Referring Provider Active Start: October 30, 2024 End: October 30, 2024 Team Status: Inactive Member Role Status Dates Dr. Imani Helm DO Primary Care Provider Active Start: November 06, 2024 End: November 06, 2024 Dr. Imani Helm DO Referring Provider Active St art: November 06, 2024 End: November 06, 2024 Dr. Kaila Henderson MD Attending Provider Active Start: November 06, 2024 End: November 06, 2024 Team Status: Inactive Member Role Status Dates Dr. Imani Helm DO Primary Care Provider Active Start: November 06, 2024 End: November 06, 2024 Dr. Kaila Henderson MD Attending Provider Active Start: November 06, 2024 End: November 06, 2024 Dr. Kaila Henderson MD Referring Provider Active Start: November 06, 2024 End: November 06, 2024 Team Status: Inactive Member Role Status Dates Dr. Imani Helm DO Primary Care Provider Active Start: November 13, 2024 End: November 13, 2024 Dr. Imani Helm DO Referring Provider Active St art: November 13, 2024 End: November 13, 2024 Dr. Kaila Henderson MD Attending Provider Active Start: November 13, 2024 End: November 13, 2024 Team Status: Inactive Member Role Status Dates Dr. Imani Helm DO Primary Care Provider Active Start: November 18, 2024 End: November 18, 2024 Dr. Imani Helm DO Referring Provider Active St art: November 18, 2024 End: November 18, 2024 Jesse Horvath DREDGE CAPTAIN, DREDGE CAPTAIN-C Attending Provider Active Start: November 18, 2024 End: November 18, 2024 Team Status: Inactive Member Role Status Dates Dr. Imani Helm DO Primary Care Provider Active Start: November 18, 2024 End: November 18, 2024 Jesse Horvath DREDGE CAPTAIN, DREDGE CAPTAIN-C Attending Provider Active Start: November 18, 2024 End: November 18, 2024 Jesse Horvath DREDGE CAPTAIN, DREDGE CAPTAIN-C Referring Provider Active Start: November 18, 2024 End: November 18, 2024 Team Status: Inactive Member Role Status Dates Dr. Imani Helm DO Primary Care Provider Active Start: November 26, 2024 End: November 26, 2024 Dr. Imani Helm DO Referring Provider Active St art: November 26, 2024 End: November 26, 2024 Dr. Iman Jolley DO Attending Provider Activ e Start: November 26, 2024 End: November 26, 2024 Reason for Visit (unrecogniz ed section and content) Reason Comments Infertility Specialty Diagnoses / Procedures Referred By Conterna t Referred To Contact [facility] Diagnoses IVF #3 Restart Procedures IVF #[place] [address] [place] [phone] [facility] [address] [place] [phone] Referral ID Status Reason Start Date Expiration Date Visits Requested Visits Authorized [id number] Authorized Financial Clearance Required - Self Pay Do Not Bill Insurance - SP patient Patient Cleared - True Self-Pay required payment collected Financial Clearance Not Required 10/05/2022 99 99 Reason Comments Xochitl/re self pay us and nurse visit Reason Comments Socorro - needs meds for tonight and this wknd Reason Comments freda Reason Comments Rose Marie re sis/hysteroscopy tomorrow Reason Comments FET med orders Reason Comments Returning Patient's Call Reason Comments Infertility Specialty Diagnoses / Procedures Referred By Valarie santillan Referred To Contact [facility] Diagnoses FET package [place] [address] [place] [address] [place] [address] Referral ID Status Reason Start Date Expiration Date Visits Requested Visits Authorized [id number] Authorized Financial Clearance Required - Self Pay Do Not Bill Insurance - SP patient Patient Cleared - True Self-Pay required payment collected Financial Clearance Not Required 01/13/2022 03/14/2022 99 99 Specialty Diagnoses / Procedures Referred By Valarie santillan Referred To Contact [facility] Diagnoses FET package [place] [address] [place] [address] [place] [address] Reason Comments Freda/forgot estrogen this morning Reason Comments ques on meds Reason Comments Patient Update Reason Comments Freda A / Lmp today please call pt Called Back Started period today , baselines Sunday? Specialty Diagnoses / Procedures Referred By Valarie t Referred To Contact [facility] Diagnoses Encounter for fertility testing Procedures FOLLICULAR US [facility] US PELVIC NONOBSTETRIC IMAGE DCMTN LIMITED/F/U Stuart Guerrero, BANDAR.CITY PLANNER [address] [place] [phone] [place] [address] [place] [phone] Referral ID Status Reason Start Date Expiration Date V isits Requested Visits Authorized [id number] Closed Auto-Generate d Referral 04/23/2022 06/17/2022 6 1 Reason Comments Freda Freda bleeding a lot this am/stopped inj Reason Comments Patient Question Reason Comments Cycle start 02/10 Reason Comments FET thaw plan called back about thaw plan Reason Comments Treatment Planning Specialty Diagnoses / Procedures Referred By [facility] Referred To Contact [facility] Diagnoses Female infertility, unspecified Procedures OFFICE/OUTPATIENT ESTABLISHED LOW MDM 20-29 [place] [address] [place] [address] [facility] [address] [place] [phone] Referral ID Status Reason Start Date Expiration Date Visits Requested Visits Authorized [id number] Authorized Benefit Check 05/03/2022 06/17/2022 5 5 Reason Comments Requires IVF Prior Authorization Reason Comments Did we get her FMLA paperwork Freda/ been bleeding for 13 days consistently light Just an FYI started Wellbutrin 2 weeks ago, can that affect her cycle? Reason Comments monitoring Specialty Diagnoses / Procedures Referred By [facility] Referred To Contact [facility] F[facility] Diagnoses IVF #3 Restart Procedures IVF #[place] [address] [address] [facility] [address] [place] [phone] Reason Comments Infertility Specialty Diagnoses / Procedures Referred By [facility] Referred To Contact [facility] Diagnoses Female infertility Procedures FOLLICULAR US [facility] US PELVIC NONOBSTETRIC IMAGE DCMTN LIMITED/F/U Shelby Rojas PA-C [address] [place] [address] [place] [id number] Referral ID Status Reason Start Date Expiration Date V isits Requested Visits Authorized [id number] Closed Auto-Generate d Referral 07/05/2022 07/05/2023 6 6 Reason Comments Patient Update Reason Comments order injections Reason Comments Next Steps Reason Comments re medication/was it called in SEt up baseline for tomorrow at [facility] d prefers between 7 and 8 am Specialty Diagnoses / Procedures Referred By Valarie santillan Referred To Contact [facility] Diagnoses Female infertility Procedures FOLLICULAR US [facility] US PELVIC NONOBSTETRIC IMAGE DCMTN LIMITED/F/U Marina Boswell APRN.CITY PLANNER [address] [place] [address] [facility] [address] [place] [address] Referral ID Status Reason Start Date Expiration Date V isits Requested Visits Authorized [id number] Closed Auto-Generate d Referral 08/28/2022 08/28/2023 6 1 Specialty Diagnoses / Procedures Referred By Valarie santillan Referred To Contact [facility] Diagnoses Female infertility, unspecified Procedures IVF PACKAGE IVF #4 [place] [address] [place] [address] [facility] [address] [place] [address] Referral ID Status Reason Start Date Expiration Date Visits Requested Visits Authorized [id number] Authorized Financial Clearance Required - Self Pay Do Not Bill Insurance - SP patient Financial Clearance Not Required Patient Cleared - True Self-Pay required payment collected 08/25/2022 11/23/2022 99 99 Reason Comments pt states meds are on back order Referral ID Status Reason Start Date Expiration Date Visits Requested Visits Authorized [id number] Authorized Auto-Generat ed Referral 11/14/2022 06/17/2023 6 6 Reason Comments Freda re appt tomorrow Reason Comments switching pharamacy Reason Comments cd 1 Reason Comments Opened in Error Reason Comments [facility] Patient Care Conference Reason Onset Date Comments General Inquiry 04/08/2024 Reason Onset Date Comments Insurance Issue 04/09/2024 Reason Comments Anorectal Malformation Specialty Diagnoses / Procedures Referred By Valarie santillan Referred To Contact Diagnoses Anorectal malformation Procedures XR Abdomen - Supine Chaitanya Akins APN [email or web address] [address] Referral ID Status Reason Start Date Expiration Date V isits Requested Visits Authorized [id number] New Request 04/09/2024 1 1 Specialty Diagnoses / Procedures Referred By Valarie t Referred To Contact RAD Interventional Diagnoses Anorectal malformation Procedures IR Cecostomy Exchange with Fluoro IR Consult Chaitanya Akins APN [address] [place] [address] Referral ID Status Reason Start Date Expiration Date V isits Requested Visits Authorized [id number] New Request 04/08/2024 1 1 Reason Onset Date Comments DME Prescription 04/13/2024 Reason Comments Anorectal Malformation Goals (unrecognized section and content) Goals may be documented in a n alternate sectionGoals may be documented in an alternate sectionGoals may be documented in an alternate sectionGoals may be documented in an alternate sectionGoals may be documented in an alternate sectionGoals may be documented in an alternate sectionGoals may be documented in an alternate sectionGoals may be documented in an alternate section FOR RECORDS PERTAINING TO PATIENTS WHO ARE OR HAVE BEEN ENROLLED IN A CHEMICAL DEPENDENCY/SUBSTANCEABUSE PROGRAM, SOME INFORMATION MAY BE OMITTED. This clinical summary was aggregated from multiple sources. Caution should be exercised in using it in the provision of clinical care. This summary normalizes information from multiple sources, and as a consequence, information in this document may materially change the coding, format and clinical context of patient data. In addition, data may be omitted in some cases. CLINICAL DECISIONS SHOULD BE BASED ON THE PRIMARY CLINICAL RECORDS. [employer] [facility]. provides no warranty or guarantee of the accuracy or completeness of information in this document.
== END | disposition home or self-care (01) ==
PROVIDERS: Obstetrics & Gynecology; PCP Family Medicine; Referring Provider Obstetrics & Gynecology; Visit Provider Obstetrics & Gynecology
DX: O99.280 Endocrine, nutritional and metabolic diseases complicating pregnancy, unspecified trimester (principal); E03.9 Hypothyroidism, unspecified; Z3A.00 Weeks of gestation of pregnancy not specified
CPT/HCPCS: 36415; 84439; 84443

== ENCOUNTER → 2025-02-19 | Outpatient (CLI) | payer BC, SELFPAY ==
[2025-02-19 12:28] LABS: Hematocrit 32.5 % (37-47); Hemoglobin 11.0 g/dL (12.0-15.0); Immature Granulocytes Count 0.060 X10^3/uL (0.0-0.0); Mean Corp Hgb Conc 33.8 g/dL (32-36); Mean Corpuscular Volume 92.3 fL (81-99); Mean Platelet Vol. 11.2 fl (6.2-12.0); NRBC Flagged by Analyzer 0 % (0-5); Platelet Count 261 K/mm3 (150-450); RBC Distribution Width CV 13.5 % (11.6-14.6); RBC Distribution Width SD 45.1 fl (35.1-43.9); Red Blood Count 3.52 M/mm3 (4.2-5.4); White Blood Count 10.9 K/mm3 (4.4-11.0)
[2025-02-19 13:33] LABS: HIV Nonreactive (Nonreactive); Syphilis Antibodies Nonreactive (Nonreactive)
[2025-02-19 13:47] LABS: Glucose Challenge Gest 1H 50g 152 mg/dL (70-140)
== END | disposition home or self-care (01) ==
PROVIDERS: Obstetrics & Gynecology; PCP Family Medicine; Referring Provider Obstetrics & Gynecology; Visit Provider Obstetrics & Gynecology
DX: O09.91 Supervision of high risk pregnancy, unspecified, first trimester (principal); Z3A.00 Weeks of gestation of pregnancy not specified; Z13.1 Encounter for screening for diabetes mellitus
CPT/HCPCS: 36415; 82950; 85025; 86703; 86780

== ENCOUNTER → 2025-02-25 | Outpatient (CLI) | payer BC, SELFPAY ==
--- OUTSIDE RECORDS SUMMARY | 2025-02-25 06:47 | XMS RPT_ITS | CCD ---
Author Organization [facility] Care Team Providers Care [place] Maker Name Role Phone MERLIN CALDERA Attending Unavailable MERLIN CALDERA Primary Care Unavailable MERLIN CALDERA Admitting Unavailable Imani Helm DO Primary Care Provider Imani Helm DO Primary Care Provider Imani Helm DO Primary Care Provider Imani Helm DO Primary Care Provider [phone] SOREN SEBASTIAN Referring Unavailabl SOREN Bingham Attending Unavailabl e MALYS, IMANI A Primary Care Unavailable CENE ENGINEERING LECTURER~[id number], EDINSON Tuttle Admitting Unavailable CENE ENGINEERING LECTURER~[id number], EDINSON Tuttle Attending Unavailable MALYS, IMANI A Primary Care Unavailable ISRRAEL MART~[id number], ISRRAEL An Admitting Unavailable ISRRAEL MART~[id number], ISRRAEL An Attending Unavailable REYNA GAGE CRNARICIA L Consulting Unavaila ble MALYS, IMANI A Primary Care Unavailable MARONI JAYDEN MELVIN L Consulting Unavaila ble LEONIE MART, ISIDRA Consulting Unavailable LEONIE MART, ISIDRA Consulting Unavailable MALYS, IMANI A Primary Care Unavailable DUDZIAK, STUART Referring Unavailable MALYS, IMANI A Primary Care Unavailable DUDZIAK, STUART Referring Unavailable DUDZIAK, STUART Referring Unavailable MALYS, IMANI A Primary Care Unavailable MALYS, IMANI A Primary Care Unavailable DUDZIAK, STUART Referring Unavailable Malys, Imani A Primary Care Provider [phone] Dr. Imani Helm DO Primary Care Provider Dr. Imani Helm DO Referring Provider Beatriz MART, Dr. Bright Attending Provider [phone] Bear Brenner DO, Dr. Valerio Attending Provider Beatriz MART, Dr. Bright Referring Provider Independence DEVICE REPAIR TECHNICIAN-C, Jesse Attending Provider [phone] Yuliet DEVICE REPAIR TECHNICIAN-C, Jesse Referring Provider [phone] MALYS, IMANI A Primary Care Unavailable SANTIAGO WELLS Attending Unavailable KAILA PAIGE Referring Unavailabl e MALYS, IMANI A Primary Care Unavailable SANTIAGO WELLS Attending Unavailable KAILA PAIGE Referring Unavailabl e Unavailable Primary Care Provider Unavailabl e LAINEZ, RAQUEL D Referring Unavailable LAINEZ, RAQUEL D Referring Unavailable SELF, SELF Referring Unavailable LAINEZ, RAQUEL D Attending Unavailable JESSE EDWARDS Referring Unavailable Gasior, Lis Attending Unavailable JESSE EDWARDS Referring Unavailable ELLANDRES LEONARD Referring Unavailable LAINEZ, RAQUEL D Referring Unavailable LYN ARGUELLES Attending Unavailable CHAITANYA AKINS Referring Unavailabl e ANDRES FITZGERALD Attending Unavailable CHAITANYA AKINS Referring Unavailabl e Malys , Dr. Diallo Primary Care Provider Alicja FRANK, Dr. Diallo Referring Provider Beatriz MART, Dr. Bright Attending Provider Kaila Paige Attending Unavailable Kaila Paige Referring Unavailable Malys, Imani Primary Care Unavailable Vande Iman Brenner Referring Unavailabl e Vande VelIman shrestha Attending Unavailabl e Malys, Imani Primary Care Unavailable Malys, Imani Primary Care Unavailable Malys, Imani Referring Unavailable Kaila Paige Attending Unavailable Malys, Imani Primary Care Unavailable Malys, Imani Referring Unavailable Vande Iman Brenner Attending Unavailabl e Malys, Imani Primary Care Unavailable Malys, Imani Referring Unavailable Kaila Paige Attending Unavailable Malys, Imani Primary Care Unavailable Malys, Imani Referring Unavailable Independence DEVICE REPAIR TECHNICIANJesse Attending Unavailable Malys, Imani Primary Care Unavailable Malys, Imani Referring Unavailable Marcanthony, Kaila Attending Unavailable Malys, Imani Primary Care Unavailable Malys, Imani Referring Unavailable Marcanthony, Kaila Attending Unavailable Malys, Imani Primary Care Unavailable Malys, Imani Referring Unavailable Vande Velde, Iman Attending Unavailabl e Malys, Imani Primary Care Unavailable Vande Velde, Iman Attending Unavailabl e Malys, Imani Referring Unavailable Malys, Imani Primary Care Unavailable Vande Velde, Iman Attending Unavailabl e Malys, Imani Referring Unavailable Marcanthony, Kaila Attending Unavailable Malys, Imani Primary Care Unavailable Malys, Imani Referring Unavailable Malys, Imani Primary Care Unavailable Marcanthony, Kaila Referring Unavailable Marcanthony, Kaila Attending Unavailable Malys, Imani Primary Care Unavailable Marcanthony, Kaila Referring Unavailable Marcanthony, Kaila Attending Unavailable Malys, Imani Primary Care Unavailable Marcanthony, Kaila Referring Unavailable Marcanthony, Kaila Attending Unavailable Malys, Imani Primary Care Unavailable Independence DEVICE REPAIR TECHNICIAN, Jesse Referring Unavailable Yuliet DEVICE REPAIR TECHNICIAN, Jesse Attending Unavailable Malys, Imani Primary Care Unavailable Marcanthony, Kaila Attending Unavailable Marcanthony, Kaila Referring Unavailable Allergies Allergy Classification Reported Allergen(s) Allergy Type Date of Onset Reaction(s) Facility (20 sources) Ampicillin; Translations: [AMPICILLIN] Drug Allergy 1 Other: See Comments, Isaura Mckeon [facility] (1 source) Ampicillin Drug Allergy [facility] (1 source) Ampicillin Drug Allergy 5 [facility] Medications Current Medications Medication Drug Class(es) Dates Sig (Normalized) Sig (Original) amphetamine aspartate 5 mg / amphetamine sulfate 5 mg / dextroamphetamine saccharate 5 mg / dextroamphetamine sulfate 5 mg oral tablet (20 sources) Central Nervous System Stimulant Start: 02-03-2025 dextroamphetamin e-amphetamine 20 mg tablet (Adderall) [None received] 02/03/2025 Active take 1 capsule by [facility] once daily amphetamine-dextroamphetamine XR 15 MG C ap SR 24HR capsule Take 1 capsule by mouth daily. Active Comment on above: Take 15 mg by mouth once daily. aspirin 81 mg delayed release oral tablet (16 sources) Platelet Aggregation Inhibitor, Nonsteroidal Anti-inflammatory Drug Start: 10-14-2024 take 1 tablet by mouth once daily Aspirin 81 mg tablet,delayed release (DR/EC) Active 81 mg PO daily October 14, 2024 12:00am aspirin 81 mg ch ewable tablet (aspirin) Chew by mouth. Active castile soap packets for enema use (11 sources) Start: 12-01-2021 take 1 dose rectal route once daily, then take 1 dose rectal route once daily castile soap packets for enema use Insert 1 Packet into rectum once daily. Add 1 packet daily to antegrade enema 30 Packet 11 12/01/2021 Active choline bitartrate 250 mg oral tablet (13 sources) Start: 10-14-2024 take 1 tablet by mouth once daily Choline 250 mg tablet Active 250 mg PO daily October 14, 2024 12:00am CHOLINE ORAL Anam e by mouth. Active Choline Dihydrogen Citrate ( CHOLINE CITRATE PO) (3 sources) Choline Dihydrog en Citrate (CHOLINE CITRATE PO) Take 250 mg by mouth. Active ergocalciferol, vitamin D2, (VITAMIN D ORAL) (14 sources) ergocalciferol, vitamin D2, (VITAMIN D ORAL) Take by mouth. Active ergocalciferol, vitamin D2, (VITAMIN D ORAL) Take by mouth. 0 Active famotidine 20 mg oral tablet (1 source) Histamine-2 Receptor Antagonist Start: 02-19-2025 take 1 tablet by mouth twice daily Famotidine (Pepcid) 20 mg tablet Active 20 mg PO TWICE A DAY 60 6 February 19, 2025 12:00am fosfomycin 3000 mg powder for oral solution (8 sources) Start: 11-22-2024 take 1 dose by mouth once Fosfomycin tromethamine 3 g Pack TAKE 3G ORALLY ONCE FOR 1 DOSE 11/22/2024 Active Start: 11-22-2024 End: 02-19-2025 take 3 g by mouth once Fosfomycin Tromethamine 3 gr am packet Discontinued 3 g PO ONCE 1 0 November 22, 2024 12:00am February 19, 2025 9:52am Urinary tract infection in mother during Unspecified infection of urinary tract in , unspecified trimester glycerin 1000 mg/ml enema (20 sources) Non-Standardized Chemical Allergen Start: 10-14-2024 Glycerin (Laxative) 5.4 gram/5.4 mL solution Active 0 .ROUTE DAILY October 14, 2024 12:00am through stoma with 9ml liquid castile soap 30ml daily; apply 30 mL topically once daily glycerin 99.5 % topical solution 30 mL. For use during nightly antegrade enema TAKING WITH 500ML WATER Active Lacto No.30-Ybdldu-Fej-Larch 25B cell-25B cell-50 mg capsule (12 sources) Start: 10-14-2024 Lacto No.76-Bi qgro-Tkl-Hnqaz 25B cell-25B cell-50 mg capsule Active NMA PO October 14, 2024 12:00am levothyroxine (20 sources) l-Thyro xine Start: 12-28-2024 Tirosint 62.5 MCG ca psule 12/28/2024 Active Start: 11-03-2024 take 1 capsule by mo ut once daily Levothyroxine 62.5 mcg capsule Active 62.5 ug PO daily 14 01November 03, 2024 1:55pm Start: 11-03-2024 take 1 capsule by mo ut once daily Levothyroxine 62.5 mcg capsule Active 62.5 ug PO daily November 03, 2024 1:55pm Start: 11-03-2024 End: 11-03-2024 take 1 capsule by mouth once daily Levothyroxine 62.5 mcg capsule Discontinued 62.5 ug PO daily 14 01November 03, 2024 12:00am November 03, 2024 1:56pm Start: 11-03-2024 End: 11-03-2024 take 1 capsule by mouth once daily Levothyroxine 62.5 mcg capsule Discontinued 62.5 ug PO daily November 03, 2024 12:00am November 03, 2024 1:56pm Start: 10-14-2024 End: 11-03-2024 take 1 capsule by mouth once daily Levothyroxine 75 mcg capsule Discontinued 75 ug PO daily October 14, 2024 12:00am November 03, 2024 10:55am End: 02-09-2025 take 1 tablet by mouth once daily levothyroxine 75 mcg tablet Take 1 tablet by mouth once daily. 02/09/2025 Discontinued take 1 capsule by mo ut once daily Tirosint 62.5 mcg capsule Take 1 capsule by mouth once daily. Active Multivit 52-Krwt-Dqidkt 1-Dh a (Pnv-Dha) 27 mg iron-1 mg -300 mg capsule (12 sources) Start: 10-14-2024 Multivit 47-Ir on-Folate 1-Dha (Pnv-Dha) 27 mg iron-1 mg -300 mg capsule Active NMA PO October 14, 2024 12:00am 25/iron fum/folic/d lozano (-1 ORAL) (14 sources) 25/iron fum/folic/dha (-1 ORAL) Take by mouth. Active 25/iron fum/folic/dha (-1 ORAL) Take by mouth. 0 Active MV-Min-Fe Fum-FA-DHA ( 1 PO) (2 sources) MV-Min- Fe Fum-FA-DHA ( 1 PO) Take by mouth. Active Soap soap (12 sources) Start: Soap soap Active NMA TOPICAL October 14, 2024 12:00am sulfamethoxazole 800 mg / trimethoprim 160 mg oral tablet (7 sources) Dihydrofolate Reductase Inhibitor Antibacterial, Sulfonamide Antimicrobial Start: sulfamethoxazole 800 mg-trimethoprim 160 mg tablet [None received] 02/02/2025 Active Start: 11-24-2024 Sulfamethoxazo le-Trimethoprim (Bactrim Ds) 800-160 mg tablet Active 1 {tbl} PO daily 30 5 November 24, 2024 12:00am Urinary tract infection in mother during Unspecified infection of urinary tract in , unspecified trimester Completed/Discontinued Medications Medication Drug Class(es) Dates Sig (Normalized) Sig (Original) acetaminophen 500 mg oral tablet (20 sources) Start: 03-24-2016 End: 07-30-2018 take 1 tablet by mouth every six hours as needed for pain Acetaminophen 500 MG tablet Discontinued 500 mg PO EVERY 6 HOURS NEEDED as needed for Mild-Mod Pain () March 24, 2016 12:00am July 30, 2018 3:57pm End: 08-11-2022 acetaminophen (TYLENOL) 325 mg cap Take by mouth as needed. 0 08/11/2022 Discontinued Comment on above: Take by mouth as nee ded. acetaminophen 300 mg / codeine phosphate 30 mg oral tablet (12 sources) Opioid Agonist Start: 6 End: 9 Acetaminophen-Codein e 1 TABLET tablet Discontinued 1 - 2 {tbl} PO EVERY 6 HOURS NEEDED as needed for Mod-Severe Pain () 20 0 May 24, 2016 1:00am July 30, 2018 3:57pm 12 hr buPROPion hydrochloride 150 mg extended release oral tablet (20 sources) Aminoketone Start: 1 End: 5 take 1 tablet by mouth once daily [...] once daily. cephalexin 500 mg oral capsule (12 sources) Cephalosporin Antibacterial Start: 021 End: 025 take 1 capsule by mouth twice daily Cephalexin 500 mg capsule Discontinued 500 mg PO TWICE A DAY 14 7 0 January 26, 2021 12:00am October 14, 2024 9:17am cholecalciferol 0.025 mg oral capsule (20 sources) Vitamin D Cholecalciferol, Vitamin D3, (VITAMIN D) 25 mcg (1,000 unit) cap Take 1,000 Units by mouth once daily. 0 Active Comment on above: Take 1,000 Units by mouth once daily. chorionic gonadotropin 68380 unt/ml injectable solution (20 sources) Gonadotropin Start: 023 inject 66574 [IU] by subcutaneous injection once chorionic gonadotropin (PREGNYL) 10,000 unit solr 10,000 Units as directed. Mix vials as directed per nursing in office. Administer subcutaneous. 2 Each 1 08/28/2022 Active Start: 04-11-2022 End: 08-11-2022 inject 82080 [IU] by subcutaneous injection once chorionic gonadotropin [...] Comment on above: Take 2 tablets by [facility] once daily. doxycycline hyclate 100 mg oral tablet (20 sources) Tetracycline-class Drug Start: 12-27-19 End: 08-11-19 take 1 tablet by mouth twice daily doxycycline (VIBRA-TABS) 100 mg tablet Take 1 tablet by mouth twice daily. 8 tablet 0 12/26/2021 08/11/2022 Discontinued Comment on above: [facility] estradiol 2 mg oral tablet [...] Comment on above: Take 3 tablets by [facility] once daily. Ethinyl Estradiol / ethynodiol (20 sources) Progestin, Estrogen Start: 07-06-2022 take 1 tablet by mouth once daily ethynodiol diacetate-ethinyl estradiol 1 mg-35 mcg (ZOVIA 1/35E, 28,) 1-35 mg-mcg per tablet Take 1 tablet by mouth once daily. 28 tablet 0 07/06/2022 Suspended Start: 07-06-2022 take 1 tablet by jaun th once daily ethynodiol diacetate-ethinyl estradiol 1 mg-35 mcg (ZOVIA 1/35E, 28,) 1-35 mg-mcg per tablet Take 1 tablet by mouth once daily. 28 tablet 0 07/06/2022 Active Comment on above: Take 1 tablet by jaun th once daily. Ethinyl Estradiol / Norethindrone (20 [...] (Optiray 320) L.Acidoph,Paracase i,B.Animalis 1 EACH capsule (12 sources) Start: 6 End: 9 take 1 [...] Take 1 tablet by jaun once daily. MULTI-VITAMIN ORAL (20 sources) End: 2022 MULTI-VITAMIN ORAL Take by mouth. 0 09/05/2022 Discontinued (Discontinued by Patient) MULTI-VITAMIN OR AL Take by mouth. 0 Suspended MULTI-VITAMIN OR AL Take by mouth. 0 Active Comment on above: Take by mouth. nitrofurantoin, macrocrystals 25 mg / nitrofurantoin, monohydrate 75 mg oral capsule (15 sources) Nitrofuran Antibacterial Start: 025 End: 025 take 1 capsule by mouth twice daily at mealtime Nitrofurantoin Monohyd/M-Cryst (Macrobid) 100 mg capsule Discontinued 100 mg PO TWICE A DAY 14 7 0 October 27, 2024 12:00am November 02, 2024 12:00am November 03, 2024 12:08am must administer with a meal/food PNV no.95/ferrous fum/folic ac ( ORAL) (20 sources) PNV no.95/ferrou s fum/folic ac ( ORAL) Take by mouth once daily. 0 Suspended PNV no.95/ferrou s fum/folic ac ( ORAL) Take by mouth once daily. 0 Active Comment on above: Take by mouth once d aily. no115/iron/folic acid ( 19 ORAL) (9 sources) End: 02-09-2025 no115/iron/folic acid ( 19 ORAL) Take 1 Application by mouth. 02/09/2025 Discontinued no115/i adama/folic acid ( 19 ORAL) Take 1 Application by mouth. Active no115/i adama/folic acid ( 19 ORAL) Take 1 Application by mouth. 0 Active progesterone 50 mg/ml injectable solution (20 sources) Progesterone Start: 10-14-2024 End: 11-13-2024 inject 100 mg by intramuscular injection once [...] as directed. For low dose HCG Pregnyl 92515 units with 5ml syringe and needle to mix and 15 insulin syringes. 1 Each 0 08/28/2022 Active Start: 08-28-2022 Sharps Contain er-Ins Syrng-Ndl 1/2 mL 30 x 1/2 syrg 1 Container as directed. Pregnyl trigger 76810 Units #1 with syringes and needles. 1 Each 0 08/28/2022 Active Comment on above: 1 Container as direc jose ramon. For low dose HCG Pregnyl 51026 units with 5ml syringe and needle to mix and 15 insulin syringes. 1 Container as direc jose ramon. Pregnyl trigger 99556 Units #1 with syringes and needles. sodium chloride 0.154 meq/ml irrigation solution (14 sources) Start: 09-15-2010 End: 02-09-2025 sodium chloride 0.9% irrigation soln 0.9 % irrigation irrigation 500 mL by Irrigation route once daily. 09/15/2010 02/09/2025 Discontinued sodium phosphate, dibasic 59.3 mg/ml / sodium phosphate, monobasic 161 mg/ml enema (20 sources) Start: 05-17-2016 End: 07-30-2018 Sodium Phosphates 1 BOTTLE enema Discontinued 120 mL OTHER ONE TIME May 17, 2016 1:00am July 30, 2018 3:58pm Start: 09-15-2010 End: 02-09-2025 sodium phosphates (FLEET LISA MA) 19-7 gram/118 mL rectal enema Indications: bowel evacuation Insert into rectum once daily. 1.5 bottles in henson flush Indications: emptying of the bowel 09/15/2010 02/09/2025 Discontinued sodium phosphate s 19 gram-7 gram/197 mL enema Insert 1 Enema into rectum. Active Syringe, Disposable, 1 mL (20 sources) [...] Chronic Attention-deficit, conduct, and disruptive behavior disorders (14 sources) Attention deficit hyperactivity disorder; Translations: [Attention-deficit hyperactivity disorder, unspecified type] 08-03-2020 Chronic Cardiac and circulatory congenital anomalies (1 source) Congenital malformation of heart, unspecified; Translations: [Congenital malformation of heart, unspecified] Onset: 10-30-2024 Chronic Deficiency and other anemia (20 sources) Anemia of chronic disease; Translations: [Anemia in other chronic diseases classified elsewhere] Onset: 07-12-2020 07-12-2020 Chronic Digestive congenital anomalies (20 sources) Congenital malformation of intestine, unspecified; 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 has abdominal port in place. has undergone several bowel surgeries since . 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 Other aftercare (1 source) Other halfway (current) drug therapy; Translations: [OTH CUSTODIAL CURRENT DRUG THERAPY] Onset: 11-13-2023 Episodic Other and unspecified benign neoplasm (20 sources) Lipoma of back; Translations: [Benign lipomatous neoplasm of skin and subcutaneous tissue of trunk] 07-30-2018 Episodic Other complications of ; puerperium affecting management of mother (1 source) Abnormality of heart; Translations: [ cardiac anomaly complicating , antepartum, single gestation] 02-10-2025 Episodic Other complications of (20 sources) H/O: miscarriage; Translations: [Supervision of with other poor reproductive or obstetric history, unspecified trimester] 10-14-2024 Episodic Comment on above: first IVF attempt fa iled Other complications of (20 sources) High risk ; Translations: [Supervision of high risk , unspecified, unspecified trimester] 10-14-2024 Episodic Comment on above: , WES 05/27/25, Johnny([facility] [employer]) PRR , WES , boy Johnny([facility] [employer]) DOC ONLY PRR , WES 05/27/25, boy Johnny([facility] [employer]) Other complications of (20 sources) Advanced maternal age ; Translations: [Elderly multigravida, unspecified as to episode of care or not applicable] 10-14-2024 Episodic Comment on above: nl preimplantation g enetics nl preimplantation g enetics, growth Q4wks @24wks, NST weekly @ 36wks Other complications of (20 sources) Hypothyroidism in ; Translations: [Endocrine, nutritional and metabolic diseases complicating , unspecified trimester] 10-14-2024 Episodic Other complications of (20 sources) Congenital abnormality of uterus, affecting ; Translations: [Maternal care for other abnormalities of gravid uterus, unspecified trimester] Onset: 11-25-2024 10-20-2024 Episodic Comment on above: needs cervical lengt hs. Other complications of (20 sources) Urinary tract infection in ; Translations: [Unspecified infection of urinary tract in , unspecified trimester] 10-27-2024 Episodic Comment on above: abx sent, rpt cultur e at next visit per MH abx sent, rpt cultur e ordered abx sent-2nd one thi s . will need prophylactic atb Other complications of (20 sources) H/O: blood transfusion; Translations: [Supervision of with other poor reproductive or obstetric history, unspecified trimester] 10-14-2024 Episodic Comment on above: childhood surgery tr ansfusion Other complications of (20 sources) Spotting per vagina in ; Translations: [Spotting complicating , first trimester] 11-18-2024 Episodic Comment on above: TVUS Other complications of (1 source) Elderly primigravida; Translations: [Supervision of elderly primigravida, first trimester] 12-30-2024 Episodic Other complications of (4 sources) Multigravida of advanced maternal age; Translations: [Supervision of elderly multigravida, second trimester] Onset: 11-25-2024 12-30-2024 Episodic Other complications of (2 sources) Supervision of elderly primigravida, first trimester; Translations: [Supervision of elderly primigravida, first trimester] Onset: 12-30-2024 Episodic Other complications of (2 sources) Decreased fertility; Translations: [Supervision of resulting from assisted reproductive technology, unspecified trimester] 02-04-2025 Episodic Other complications of (1 source) Conceived by in vitro fertilization; Translations: [Supervision of resulting from assisted reproductive technology, first trimester] Onset: 11-25-2024 02-09-2025 Episodic Other complications of (1 source) Supervision of resulting from assisted reproductive technology, unspecified trimester; Translations: [Supervision of resulting from assisted reproductive technology, unspecified trimester] Onset: 02-09-2025 Episodic Other complications of (2 sources) Supervision of high risk , unspecified, first trimester; Translations: [Supervision of high risk , unspecified, first trimester] Onset: 01-20-2025 Episodic Other complications of (1 source) Endocrine, nutritional and metabolic diseases complicating , unspecified trimester; Translations: [Endocrine, nutritional and metabolic diseases complicating , unspecified trimester] Onset: 12-09-2024 Episodic Other complications of (1 source) Spotting complicating , first trimester; Translations: [Spotting complicating , first trimester] Onset: 11-25-2024 Episodic Other congenital anomalies (20 sources) Vertebral [...] Translations: [Full incontinence of feces] Onset: 07-12-2020 Resolved: 02-09-2025 07-12-2020 Episodic Other gastrointestinal disorders (4 sources) Constipation; Translations: [Other constipation] 04-10-2024 Episodic Other gastrointestinal disorders (1 source) Incomplete passage of stool; Translations: [Incomplete defecation] 10-09-2024 Episodic Other and delivery including normal (20 sources) ; Translations: [Encounter for supervision of normal , unspecified, unspecified trimester] 10-14-2024 Episodic Comment on above: Pt has had extensive genetic testing, donor egg, baby boy Pt has had extensive genetic testing, donor egg, baby boy, 1st trimester nl growth & normal NT, 18-20wk anatomy, CL & BPP, 22-24 echo Other screening for suspected conditions (not mental disorders or infectious disease) (5 sources) Encounter for other specified screening; Translations: [Encounter for other screening follow-up] Onset: 01-22-2025 Episodic Residual codes; unclassified (3 sources) History of antegrade continence enema procedure; Translations: [Other specified postprocedural states] 04-10-2024 Episodic Residual codes; unclassified (1 source) Gestation period, 18 weeks; Translations: [18 weeks gestation of ] 12-30-2024 Episodic Residual codes; unclassified (1 source) Gestation period, 22 weeks; Translations: [22 weeks gestation of ] 01-22-2025 Episodic Residual codes; unclassified (1 source) Gestation period, 24 weeks; Translations: [24 weeks gestation of ] 02-10-2025 Episodic Residual codes; unclassified (1 source) 24 weeks gestation of ; Translations: [24 weeks gestation of ] Onset: 02-09-2025 Episodic Thyroid disorders (2 sources) Hypothyroidism, unspecified; Translations: [HYPOTHYROIDISM UNSPECIFIED] Onset: 11-13-2023 Chronic Unclassified (1 source) Maternal care for other (suspected) abnormality and damage, cardiac anomalies, not applicable or unspecified; Translations: [Maternal care for other (suspected) abnormality and damage, cardiac anomalies, not applicable or unspecified] Onset: 02-09-2025 Unclassified (1 source) New Patient Evaluation Onset: 02-09-2025 Unclassified (1 source) Anorectal Malformation Onset: 10-09-2024 Urinary tract infections (20 sources) Urinary tract infectious disease; Translations: [Urinary tract infection, site not specified] Onset: 12-30-2024 08-03-2020 Episodic Past or Other Problems Problem Classification Problem Date Documented Da te Episodic/Chronic Abdominal pain (20 sources) Generalized abdominal pain; Translations: [Generalized abdominal pain] Onset: 05-24-2020 05-24-2020 Episodic Calculus of urinary tract (20 sources) Kidney stone; Translations: [Calculus of kidney] Onset: 02-09-2025 Resolved: 02-09-2025 03-16-2021 Episodic Contraceptive and procreative management (20 sources) Patient encounter status; Translations: [Encounter for fertility testing] Onset: 01-22-2023 Episodic Comment on above: donor egg Genitourinary symptoms and ill-defined conditions (3 sources) Incomplete emptying of bladder; Translations: [Retention of urine, unspecified] Onset: 10-09-2024 10-09-2024 Episodic Nausea and vomiting (20 sources) Postoperative nausea and vomiting; Translations: [Nausea with vomiting, unspecified] Onset: 05-17-2020 Resolved: 02-09-2025 05-17-2020 Episodic Other and unspecified benign neoplasm (1 source) Benign lipomatous neoplasm of skin and subcutaneous tissue of trunk; Translations: [Benign lipomatous neoplasm of skin and subcutaneous tissue of trunk] Onset: 10-30-2024 Episodic Other complications of (1 source) Unspecified [...] uterus, unspecified trimester] Onset: 10-30-2024 Episodic Other gastrointestinal disorders (1 source) Incomplete defecation; Translations: [Incomplete defecation] Onset: 08-03-2020 Episodic Other gastrointestinal disorders (1 source) Other constipation; Translations: [Other constipation] Onset: 10-09-2024 Episodic Residual codes; unclassified (1 source) Other specified postprocedural states; Translations: [Other specified postprocedural states] Onset: 10-09-2024 Episodic Residual codes; unclassified (1 source) 10 weeks gestation of ; Translations: [10 weeks gestation of ] Onset: 10-30-2024 Episodic Unclassified (1 source) History of antegrade continence enema procedure 10-09-2024 Unclassified (3 sources) Patient encounter status 12-30-2024 Results Test Name Value Interpretation Reference Range Facility CBC W/Diff, Automatedon 09-0 -2024 Absolute Lymph 1.48 X10 3/uL Normal 0.83-4.51 [facility] Comment on above: Performed By: #### L 509.4006, L3890.6301, L100.0100, BTS, L3890.6102, L509.8002, L3890.6006, L506.0400, L501.9520 #### [facility] [address] [place], [address] Absolute Neut 8.7 X10 3/uL High 2.0-7.7 [facility] Comment on above: Performed By: #### L 509.4006, L3890.6301, L100.0100, BTS, L3890.6102, L509.8002, L3890.6006, L506.0400, L501.9520 #### [facility] [address] [place], [address] Basophils/100 WBC (Bld) 0.4 % Normal 0-1 [facility] Comment on above: Performed By: #### L 509.4006, L3890.6301, L100.0100, BTS, L3890.6102, L509.8002, L3890.6006, L506.0400, L501.9520 #### [facility] [address] [place], [address] Eosinophils/100 WBC (Bld) 1.2 % Normal 0-5 [facility] Comment on above: Performed By: #### L 509.4006, L3890.6301, L100.0100, BTS, L3890.6102, L509.8002, L3890.6006, L506.0400, L501.9520 #### [facility] [address] [place], [place], [id number] Erythrocyte distribution width (RBC) [Ratio] 13.5 % Normal 11.6-14.6 [facility] Comment on above: Performed By: #### L 509.4006, L3890.6301, L100.0100, BTS, L3890.6102, L509.8002, L3890.6006, L506.0400, L501.9520 #### [facility] [address] [place], [address] Hematocrit (Bld) [Volume fraction] 32.5 % Low 37-47 [facility] Comment on above: Performed By: #### L 509.4006, L3890.6301, L100.0100, BTS, L3890.6102, L509.8002, L3890.6006, L506.0400, L501.9520 #### [facility] [address] [place], [place], [address] Hemoglobin (Bld) [Mass/Vol] 11.0 g/dL Low 12.0-15.0 [facility] Comment on above: Performed By: #### L 509.4006, L3890.6301, L100.0100, BTS, L3890.6102, L509.8002, L3890.6006, L506.0400, L501.9520 #### [facility] [address] [place], [place], [id number] IG% 0.500 Normal 0.0-0.9 [facility] Comment on above: Result Comment: IG% - Immature Granulocytes (promyelocytes, myelocytes and metamyelocytes) > 1% indicates that a LEFT SHIFT is Present. Performed By: #### L 509.4006, L3890.6301, L100.0100, BTS, L3890.6102, L509.8002, L3890.6006, L506.0400, L501.9520 #### [facility] [address] [place], [address] Lymphocytes/100 WBC (Bld) 13.6 % Low 19-41 [facility] Comment on above: Performed By: #### L 509.4006, L3890.6301, L100.0100, BTS, L3890.6102, L509.8002, L3890.6006, L506.0400, L501.9520 #### [facility] [address] [place], [address] MCH (RBC) [Entitic mass] 31.3 pg Normal 27.0-32.0 [facility] Comment on above: Performed By: #### L 509.4006, L3890.6301, L100.0100, BTS, L3890.6102, L509.8002, L3890.6006, L506.0400, L501.9520 #### [facility] [address] [place], [address] MCHC (RBC) [Mass/Vol] 33.8 g/dL Normal 32-36 [facility] Comment on above: Performed By: #### L 509.4006, L3890.6301, L100.0100, BTS, L3890.6102, L509.8002, L3890.6006, L506.0400, L501.9520 #### [facility] [address] [place], [address] MCV (RBC) [Entitic vol] 92.3 fL Normal 81-99 [facility] Comment on above: Performed By: #### L 509.4006, L3890.6301, L100.0100, BTS, L3890.6102, L509.8002, L3890.6006, L506.0400, L501.9520 #### [facility] [address] [place], [address] Monocytes/100 WBC (Bld) 4.5 % Normal 0-10 [facility] Comment on above: Performed By: #### L 509.4006, L3890.6301, L100.0100, BTS, L3890.6102, L509.8002, L3890.6006, L506.0400, L501.9520 #### [facility] [address] [place], [address] Neutrophils/100 WBC (Bld) 79.8 % High 47-70 [facility] Comment on above: Performed By: #### L 509.4006, L3890.6301, L100.0100, BTS, L3890.6102, L509.8002, L3890.6006, L506.0400, L501.9520 #### [facility] [address] [place], [address] Nucleated RBC (Bld) [#/Vol] 0 10*3/uL Normal 0-5 [facility] Comment on above: Performed By: #### L 509.4006, L3890.6301, L100.0100, BTS, L3890.6102, L509.8002, L3890.6006, L506.0400, L501.9520 #### [facility] [address] [place], [address] Platelet mean volume (Bld) [Entitic vol] 11.2 fL Normal 6.2-12.0 [facility] Comment on above: Performed By: #### L 509.4006, L3890.6301, L100.0100, BTS, L3890.6102, L509.8002, L3890.6006, L506.0400, L501.9520 #### [facility] [address] [place], [address] Platelets (Bld) [#/Vol] 261 10*3/uL Normal 150-450 [facility] Comment on above: Performed By: #### L 509.4006, L3890.6301, L100.0100, BTS, L3890.6102, L509.8002, L3890.6006, L506.0400, L501.9520 #### [facility] [address] [place], [address] RBC (Bld) [#/Vol] 3.52 10*6/uL Low 4.2-5.4 [facility] Comment on above: Performed By: #### L 509.4006, L3890.6301, L100.0100, BTS, L3890.6102, L509.8002, L3890.6006, L506.0400, L501.9520 #### [facility] [address] [place], [address] RDW SD 45.1 fl High 35.1-43.9 [facility] Comment on above: Performed By: #### L 509.4006, L3890.6301, L100.0100, BTS, L3890.6102, L509.8002, L3890.6006, L506.0400, L501.9520 #### [facility] [address] [place], [address] WBC (Bld) [#/Vol] 10.9 10*3/uL Normal 4.4-11.0 [facility] Comment on above: Performed By: #### L 509.4006, L3890.6301, L100.0100, BTS, L3890.6102, L509.8002, L3890.6006, L506.0400, L501.9520 #### [facility] [address] [place], [address] Glucose Challenge Gest 1H 50 trudi 09- GLU GEST 50g 1H 152 mg/dL High 70-140 [facility] Comment on above: Performed By: #### L 509.4006, L3890.6301, L100.0100, BTS, L3890.6102, L509.8002, L3890.6006, L506.0400, L501.9520 #### [facility] [address] [place], [place], [address] HIVon 02-19-2025 HIV Non-Reactive Normal Nonreactive [facility] Comment on above: Result Comment: Non- Reactive Reactive Repeatedly reactive samples must be confirmed according to CDC recommended confirmatory algorithms. The subresults for either HIVAG or AHIV can be used as an aid in the selection of the confirmation algorithm for reactive samples. Send out specimens with Reactive results to [facility] for confirmation. Order the HIV antibody detection and differentiation: lc#[id number] Performed By: #### L 509.4006, L3890.6301, L100.0100, BTS, L3890.6102, L509.8002, L3890.6006, L506.0400, L501.9520 #### [facility] [address] [place], [place], [address] Sales Operations Director Office Visit Reporton 02-19-2025 Sales Operations Director Office Visit Report [facility]'[address], [address] [place] [address] OFFICE VISIT Date of Service: 02/19/25 MR#: [id number] Acct: [id number] Name: LATONYA RODARTE Rep #: [id number] : 1985 Provider: Dr. Kaila cali MD Age/Sex: 39/F [place] [facility] [place]: Signed Intake Vital Signs 11/18/24 14:11 01/20/25 15:41 02/19/25 09:08 Height 5 ft 4 in 5 ft 4 in 5 ft 4 in Weight: 177 lb 3 oz BMI 30.4 BP 135/77 H Intake Visit Reasons: 26 WK OB *DOC ONLY Palliative Nurse Required: No Is patient in pain?: No Allergies ampicillin Allergy (Verified 02/19/25 09:10) Hives Medications ???Medication ???Instructions ???Recorded ???Confirmed ???Type Lactobacillus 25 billion cap PO 10/14/24 02/19/25 History cell-Bifido 25 billion azzq-KEH-uhfps capsule aspirin 81 mg tablet,delayed 81 mg PO QDAY 10/14/24 02/19/25 Hi story release choline 250 mg tablet 250 mg PO QDAY 10/14/24 02/19/25 H istory glycerin (laxative) 5.4 gram/5.4 See Rx Instructions .Route DAILY 0 10/14/24 02/19/25 History mL rectal solution through stoma with 9ml liquid castile soap multivitamin no.47-iron fum 27 cap PO 10/14/24 02/19/25 History mg-folate no.1 1 mg-dha 300 mg capsule (PNV-DHA) soap ea topical 10/14/24 02/19/25 Histo ry levothyroxine 62.5 mcg capsule 62.5 mcg PO QDAY #30 caps 11/03/24 02/19/25 Rx sulfamethoxazole 800 1 tab PO QDAY #30 tabs 11/24/24 Rx mg-trimethoprim 160 mg tablet (Bactrim DS) famotidine 20 mg tablet (Pepcid) 20 mg PO BID #60 tabs 02/19/2510/10 Rx Last Menstrual Period: 08/21/24 Zika: Zika [...] 3-4 times per week duration: 15-30 minutes/day sotero/yazidism: None seatbelt use: always do you feel safe at home: Yes 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 Date Name GA/Weeks Outcome Route Bth Weight Infant Gen Labor Lgth Anesthesia Del Locatn Provider FOB Unknown February 25, 2024 4 spontaneous Delivery Date: Last Updated by: Ginny Mcintyre failed IVF transfer HPI 26 WK OB *DOC ONLY Details: LATONYA RODARTE is a 39 year old who presents for routine OB visit. OB Visit WES Calculator Estimated Delivery Date Method Current WG Current Estimate 05/27/25 Conception 26w 1d Expected Delivery Route/Plan requests primary section [...] ??- Glucose FHR FuHt Pres Dilation -???-???-???-???-???-?? ?-???-???-???-???-??? (more content not included)... Normal [facility] Syphilis Antibodieson 2024 Syphilis Abs Non-Reactive Normal Nonreactive [facility] Comment on above: Performed By: #### L 509.4006, L3890.6301, L100.0100, BTS, L3890.6102, L509.8002, L3890.6006, L506.0400, L501.9520 #### [facility] [address] [place], [address] ECHOCARDIOGRAM, FETALon 01-17 SUMMARY: 1. No structural heart abnormalities. 2. Normal segmental cardiac anatomy. 3. No valve abnormalities. 4. Normal biventricular size and function. 5. Normal cardiac rate and rhythm. 6. Normal echocardiogram. [facility] ECHOCARDIOGRAM REPORT Pt. Name: LATONYA RODARTE Study Date: 02/09/2025 Study Time: 1:40:12 PM eMPI#: [id number] Date: 1985 Patient Age: 39 years Pt. Gender: F Exam Site: [facility] Outside Referrring Physician: [id number] RAQUEL LAINEZ Primary Manager Storage: Sofia Vincent Interpreting Fellow: Ashley Dia Interpreting Physician: Lyn Arguelles Additional Reviewing MD: Study Information: Technically difficult study due to poor windows. Referral Indication: ^LMP 08/20/2024 maternal cloacal anomaly/IVF. Diagnosis: Procedures Performed: echo complete BIOMETRY: (mean) US GA: BPD 6.39 cm 25w6d FL 4.36 cm 24w2d TC 16.32 cm HrtCirc 9.02 cm HrtC/TC 0.55 Composite GA: 24w5d WES by US: 05/27/2025 Last Menstural Period: 08/20/2024 Clinical GA from LMP: 24w5d Assigned WES: 05/27/2025 Assigned GA: 24w5d Assigned GA based on: LMP CARDIAC FINDINGS: Heart Rate Data HR: 153 bpm Ventricular R-R interval: 392 msec CARDIAC RATE AND RHYTHM: Normal cardiac rate and rhythm. GENERAL OBSERVATIONS AND DOPPLER: Presentation is breech. The umbilical artery demonstrates normal flow. The umbilical vein shows normal flow. The ductus arteriosus flow is normal. Normal (continuous antegrade) flow in the ductus venosus. The umbilical cord is normal. SEGMENTAL ANATOMY, CARDIAC POSITION AND SITUS: Levocardia with atrial situs solitus, concordant atrioventricular and ventriculoarterial connections and normally related great arteries. The heart position is within the left hemithorax (levocardia). The cardiac apex is oriented leftward. The aorta is to the right of the pulmonary artery. Normal visceral situs. Segmental cardiotype: (S, D, S). VENOUS CONNECTIONS: Normal systemic venous connections. A superior vena cava is right-sided and drains normally to the right atrium. A left superior vena cava is not present. The inferior vena cava is right-sided and inserts into the right atrium normally. At least one pulmonary vein on each side drains to the left atrium. There is no pulmonary vein stenosis. ATRIA: The foramen ovale is normal with the flap noted within the left atrium. The right atrium is normal in size. The left atrium is normal in size. ATRIOVENTRICULAR JUNCTION: The tricuspid valve is normal. Tricuspid inflow pattern is biphasic. There is no tricuspid valve regurgitation. The mitral valve is normal. Mitral inflow pattern is biphasic. There is no mitral valve regurgitation. VENTRICLES: Normal biventricular size and function. There is normal right ventricular size and systolic function. There is normal left ventricular size and systolic function. No regional wall motion abnormalities seen. VENTRICULAR SEPTUM: No ventricular septal defect is seen. OUTFLOW TRACTS / OUTLETS: The right ventricular outflow tract is normal in size with unobstructed flow. The left ventricular outflow tract is normal with unobstructed flow. SEMILUNAR VALVES: Normal pulmonary valve. There is normal antegrade flow across the pulmonary valve with no regurgitation. The aortic valve is normal. PULMONARY ARTERIES: The branch pulmonary arteries are normal. AORTA: The aortic arch is normal in appearance with normal antegrade flow. There is no discrete coarctation of the aorta. There is a left aortic arch. DUCTUS ARTERIOSUS: The ductus arteriosus is normal in size with unrestrictive antegrade flow. PERICARDIUM AND PLEURA: There is no pericardial effusion. There are no pleural effusions. MEASUREMENTS AND CALCULATIONS: TRICUSPID VALVE: TV annulus diam, 4C: 0.85 cm Z = 1.85 MITRAL VALVE: MV annulus diam, 4C: 0.75 cm Z = 1.39 PULMONARY VALVE: PV annulus diam: 0.58 cm Z = 1.04 AoV/PV annulus ratio: 0.84 AORTIC VALVE: AoV annulus diam: 0.49 cm Z = 1.42 AoV/PV annulus ratio: 0.84 PULMONARY ARTERIES: RPA diam: 0.33 cm Z= 1.32 LPA diam: 0.32 cm Z= 1.15 IMAGING LIMITATIONS: echocardiography may not be able to detect abnormalities such as small ventricular septal defects, subtle valve abnormalities, coarctation of the aorta, coronary artery abnormalities or partial anomalous pulmonary venous return; nor can it predict persistence of structures such as patent foramen ovale or patent ductus arteriosus. [place]'s Name: Lyn Arguelles cc report (more content not included)... [facility] OB ultrasound panelon 2024 - OBSTETRICS REPORT (Signed Final 01/22/2025 01:53 pm) - PATIENT INFO: ID #: [id number] : [birth year] (39 yrs)(F) Name: LATONYA RODARTE Visit Date: 01/22/2025 12:55 pm - PERFORMED BY: Performed By: Paris Sevilla MS, RDMS, RVT Attending: Yudy Ashley MD Referred By: Raquel Lainez MD Ref. 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 By: LMP (08/20/24) WES: 05/27/25 - EVALUATION: Num Of Fetuses: 1 Preg. Location: Intrauterine Heart Rate(bpm): 148 Cardiac Activity: Observed Presentation: Transverse Head Left Placenta: Posterior P. Cord Insertion: Visualized Amniotic Fluid DES FV: Average Largest Pocket(cm) 5.22 - BIOMETRY: - ANATOMY: Heart: Apical only LVOT: Visualized Stomach: Visualized Bladder: Visualized - TARGETED ANATOMY: Head/Neck Palate: PMT visualized Thorax Aortic Arch: Limited Ductal Arch: Visualized SVC: Visualized 3 Vessel View: Visualized IVC: Visualized Crossing: Visualized Other Genitalia: Male - IMPRESSION: Follow-up Anatomy Summary 1. Lyon intrauterine in the Transverse Head Left presentation with a gestational age of 22w 1d based on the menstrual dates. The WES is 05/27/2025. 2. Amniotic fluid: Average, with a single deepest pocket of 5.22cm. 3. The placenta is Posterior. 4. An anatomic study was previously performed, although incomplete with limited visualization. Anatomy obtained today: RUTH, palate, bicaval, LVOT, apical four chambers, aortic arch, PCI, 3VV, and cardiac outflow sweep. Anatomy remaining limited: ductal arch. 5. Stomach and bladder are visualized. 6. Exam compromised by maternal habitus and position. Follow up anatomy today due to complicated by AMA, IVF donor egg (no ICSI per patient), didelphic uterus and rectovaginal fistula repair. Limitations of imaging reivewed today but no anomalies noted. Recommend growth at 32 weeks given AMA. Reviewed perinatology consultation at [place] and agreement with 37wk delivery to help coordinate surgical team and avoid labor. - RECOMMENDATIONS: Thank you for asking us to see LATONYA RODARTE. I personally viewed and interpreted these images and I have approved this report. A copy of this report will be sent to Raquel Lainez MD. Our ultrasound lab is accredited by [employer] ([employer]). If you would like to discuss your patient's results, please do not hesitate to contact us at [phone]. ------- (more content not included)... RADIOLOGY System, Provider Not In - 01/22/2025 - OBSTETRICS REPORT (Signed Final 01/22/2025 01:53 pm) - PATIENT INFO: ID #: [id number] : [birth year] (39 yrs)(F) Name: LATONYA RODARTE Visit Date: 01/22/2025 12:55 pm - PERFORMED BY: Performed By: Paris Sevilla MS, RDMS, RVT Attending: Yudy Ashley MD Referred By: Raquel Lainez MD Ref. 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 By: LMP (08/20/24) WES: 05/27/25 - EVALUATION: Num Of Fetuses: 1 Preg. Location: Intrauterine Heart Rate(bpm): 148 Cardiac Activity: Observed Presentation: Transverse Head Left Placenta: Posterior P. Cord Insertion: Visualized Amniotic Fluid DES FV: Average Largest Pocket(cm) 5.22 - BIOMETRY: - ANATOMY: Heart: Apical only LVOT: Visualized Stomach: Visualized Bladder: Visualized - TARGETED ANATOMY: Head/Neck Palate: PMT visualized Thorax Aortic Arch: Limited Ductal Arch: Visualized SVC: Visualized 3 Vessel View: Visualized IVC: Visualized Crossing: Visualized Other Genitalia: Male - IMPRESSION: Follow-up Anatomy Summary 1. Lyon intrauterine in the Transverse Head Left presentation with a gestational age of 22w 1d based on the menstrual dates. The WES is 05/27/2025. 2. Amniotic fluid: Average, with a single deepest pocket of 5.22cm. 3. The placenta is Posterior. 4. An anatomic study was previously performed, although incomplete with limited visualization. Anatomy obtained today: RUTH, palate, bicaval, LVOT, apical four chambers, aortic arch, PCI, 3VV, and cardiac outflow sweep. Anatomy remaining limited: ductal arch. 5. Stomach and bladder are visualized. 6. Exam compromised by maternal habitus and position. Follow up anatomy today due to complicated by AMA, IVF donor egg (no ICSI per patient), didelphic uterus and rectovaginal fistula repair. Limitations of imaging reivewed today but no anomalies noted. Recommend growth at 32 weeks given AMA. Reviewed perinatology consultation at [place] and agreement with 37wk delivery to help coordinate surgical team and avoid labor. - RECOMMENDATIONS: Thank you for asking us to see LATONYA RODARTE. I personally viewed and interpreted these images and I have approved this report. A copy of this report will be sent to Raquel Lainez MD. Our ultrasound lab is accredited by [employer] ([employer]). If you would like to discuss your patient's results, please do not hesitate to contact us at [phone]. - Yudy Ashley MD Electronically Signed Final Report 01/22/2025 01:53 pm - [facility] Radiology Study observation (narrative) [facility] OB ultrasound panelOrdered B y: Provider System on 01-22-2025 [facility] - Chemistry and C hemistry - challengeOrdered By: Iman Brenner on 01-20-2025 Glucose Ql (U) Negative [facility] - UrinalysisOrder ed By: Iman Brenner on 01-20-2025 Protein Ql (U) Negative [facility] Sales Operations Director Office Visit Reporton 01-20-2025 Sales Operations Director Office Visit Report [facility]'[address], [place] [address] OFFICE VISIT Date of Service: 01/20/25 MR#: [id number] Acct: [id number] Name: LATONYA RODARTE Rep #: [id number] : 1985 Provider: Dr. Iman Silverman DO Age/Sex: 39/F Location: [facility] – [place] Status: Signed Intake Vital Signs 11/13/24 08:10 11/18/24 14:11 12/24/24 11:50 01/20/25 15:40 01/20/25 15:41 Height 5 ft 4 in 5 ft 4 in 5 ft 4 in 5 ft 4 in 5 ft 4 in Weight: 177 lb 3 oz BMI 30.4 BP 113/68 Intake Visit Reasons: 22wk ob * DOC ONLY Palliative Nurse Required: No Is patient in pain?: No Allergies ampicillin Allergy (Verified 01/20/25 15:38) Hives Medications ???Medication ???Instructions ???Recorded ???Confirmed ???Type Lactobacillus 25 billion cap PO 10/14/24 01/20/25 History cell-Bifido 25 billion jcfn-VZU-xpmqk capsule aspirin 81 mg tablet,delayed 81 mg PO QDAY 10/14/24 01/20/25 Hi story release choline 250 mg tablet 250 mg PO QDAY 10/14/24 01/20/25 H istory glycerin (laxative) 5.4 gram/5.4 See Rx Instructions .Route DAILY 0 10/14/24 01/20/25 History mL rectal solution through stoma with 9ml liquid castile soap multivitamin no.47-iron fum 27 cap PO 10/14/24 01/20/25 History mg-folate no.1 1 mg-dha 300 mg capsule (PNV-DHA) soap ea topical 10/14/24 01/20/25 Histo ry levothyroxine 62.5 mcg capsule 62.5 mcg PO QDAY #30 caps 11/03/24 01/20/25 Rx fosfomycin tromethamine 3 gram 3 g [...] 3-4 times per week duration: 15-30 minutes/day sotero/yazidism: None seatbelt use: always do you feel safe at home: Yes 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 Date Name GA/Weeks Outcome Route Bth Weight Gen Labor Lgth Anesthesia Del Locatn Provider FOB Unknown February 25, 2024 4 spontaneous Delivery Date: Last Updated by: Ginny Mcintyre failed IVF transfer HPI 22wk ob * DOC ONLY Details: LATONYA RODARTE is a 39 year old who presents for routine OB visit. OB Visit WES Calculator Estimated Delivery Date Method Current WG Current Estimate 05/27/25 Conception 21w 6d Expected Delivery Route/Plan requests primary section [...] Weight BP Urine Prot -???-???-???-???-???-?? ?-???-???-???-???-???-? ??- Gluco (more content not included)... Normal [facility] AFP MATERNAL SCREEN, NTD ONL Yon 12-30-2024 AFP 71.6 ng/mL Normal [facility] Comment on above: Performed By: #### A FPNTP #### [facility] (DEFAULT) [address] [place] [address] 16530 AFP ADDITIONAL COMMENTS DNR Normal O [facility] Comment on above: Performed By: #### A FPNTP #### U [facility] (DEFAULT) [address] [place] [address] 51265 AFP Interpretation SEE COMMENTS Normal [facility] Comment on above: Result Comment: RESU LT: Screen negative for neural tube defects. Performed By: #### A FPNTP #### [facility] (DEFAULT) [address] [place] [address] 40165 AFP MoM 1.57 MoM Normal <2.50 [facility] Comment on above: Performed By: #### A FPNTP #### [facility] (DEFAULT) [address] [place] [address] 79076 AFP RECOMMENDED FOLLOW UP None. Normal [facility] Comment on above: Performed By: #### A FPNTP #### U [facility] (DEFAULT) [address] [place] [address] 91776 AFP RESULTS SUMMARY Normal risk Normal [facility] Comment on above: Performed By: #### A FPNTP #### [facility] (DEFAULT) [address] [place] [address] 41813 CALCULATED AGE AT WES 39 years Normal [facility] Comment on above: Performed By: #### A FPNTP #### [facility] (DEFAULT) [address] [place] [address] 22204 WES by LMP 05/27/2025 Normal [facility] Comment on above: Performed By: #### A FPNTP #### [facility] (DEFAULT) [address] [place] [address] 62319 WES BY U/S SCAN DNR Normal [facility] Comment on above: Performed By: #### A FPNTP #### [facility] (DEFAULT) [address] [place] [address] 32173 Family History of NTD No Normal [facility] Comment on above: Performed By: #### A FPNTP #### [facility] (DEFAULT) [address] [place] [address] 54561 GA ON COLELCTION BY U/S SCAN DNR Normal [facility] Comment on above: Performed By: #### A FPNTP #### U [facility] (DEFAULT) [address] [place] [address] 42329 GA USED IN RISK ESTIMATE Dates estimate [facility] Comment on above: Performed By: #### A FPNTP #### [facility] (DEFAULT) [address] [place] [address] 39532 Gestational Age Calculated at Collection 18,6 wk,d Normal [facility] Comment on above: Performed By: #### A FPNTP #### [facility] (DEFAULT) [address] [place] [address] 47991 Initial or Repeat Testing Initial testing [facility] Comment on above: Performed By: #### A FPNTP #### [facility] (DEFAULT) [address] [place] [address] 87260 Insulin Depend Diabetic No Normal [facility] Comment on above: Performed By: #### A FPNTP #### [facility] (DEFAULT) [address] [place] [address] 83676 Maternal Date of 87 Normal [facility] Comment on above: Performed By: #### A FPNTP #### [facility] (DEFAULT) [address] [place] [address] 69073 MATERNAL WEIGHT (MWGT) DNR Normal [facility] Comment on above: Performed By: #### A FPNTP #### [facility] (DEFAULT) [address] [place] [address] 98805 NEURAL TUBE DEFECT RISK ESTIMATE Normal [facility] Comment on above: Performed By: #### A FPNTP #### [facility] (DEFAULT) [address] [place] [address] 72158 NUMBER OF CHORIONS Unknown Normal [facility] Comment on above: Performed By: #### A FPNTP #### [facility] (DEFAULT) [address] [place] [address] 75755 Number of Fetuses 1 Normal [facility] Comment on above: Performed By: #### A FPNTP #### [facility] (DEFAULT) [address] [place] [address] 74070 Patient Race: non-Black [facility] Comment on above: Performed By: #### A FPNTP #### [facility] (DEFAULT) [address] [place] [address] 97492 Physician Phone [phone] Normal [facility] Comment on above: Performed By: #### A FPNTP #### [facility] (DEFAULT) [address] [place] [address] 32041 due to IVF? No Normal [facility] Comment on above: Performed By: #### A FPNTP #### [facility] (DEFAULT) [address] [place] [address] 88489 PREVIOUS PREGANCY W/ NEURAL TUBE DEFECT No Normal [facility] Comment on above: Performed By: #### A FPNTP #### [facility] (DEFAULT) [address] [place] [address] 46800 RECALCULATED MATERNAL SERUM SCREEN DNR Normal [facility] Comment on above: Performed By: #### A FPNTP #### [facility] (DEFAULT) [address] [place] [address] 09269 Smoking Status non-Smoker [facility] Comment on above: Performed By: #### A FPNTP #### [facility] (DEFAULT) [address] [place] [address] 96237 SPECIMEN COLLECTION DATE 12/30/24 [facility] Comment on above: Performed By: #### A FPNTP #### [facility] (DEFAULT) [address] [place] [address] 13519 TEST INFORMATION SEE COMMENTS [facility] Comment on above: Result Comment: This screening provides an estimation of risk, not a diagnosis. Incorrect or incomplete information may significantly alter results. Results may be unreliable in twin pregnancies with a demise. Results are not available for pregnancies with triplets and higher-order multiples. A positive result occurs when the AFP MoM equals or exceeds 2.5. Screen results and family history influence individual risk. If there is a family history of a neural tube defect, chromosome abnormality, or other inherited condition, consider the option of a genetic consultation. For further information, please contact the maternal screening laboratory at . ADDITIONAL INFORMATION This test was developed and its performance characteristics determined by [facility] in a manner consistent with CLIA requirements. This test has not been cleared or approved by the U.S. Food and Drug Administration. Test Performed by: [facility] [place] [address] Practice Nurse: Shanice Shepherd Ph.D.; CLIA# [id number] Performed By: #### A FPNTP #### [facility] (DEFAULT) [address] [place] [address] 91244 OB ultrasound panelon 2024 - OBSTETRICS REPORT (Signed Final 12/30/2024 04:11 pm) - PATIENT INFO: ID #: [id number] : [birth year] (39 yrs)(F) Name: LATONYA RODARTE Visit Date: 12/30/2024 08:01 am - PERFORMED BY: Performed By: Paris Sevilla, MS, RDMS, RVT Attending: Birgit Wood MD Referred By: Raquel Lainez MD Ref. 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 By: LMP (08/20/24) WES: 05/27/25 - CERVIX UTERUS ADNEXA: Cervix Length: 3.19 cm. No change with pressure. Uterus Didelphic uterus Right Ovary Not seen due to bowel gas Left Ovary Not seen due to bowel gas - EVALUATION: Num Of Fetuses: 1 Preg. Location: Intrauterine Heart Rate(bpm): 157 Cardiac Activity: Observed Presentation: Transverse to Breech Placenta: Posterior P. Cord Insertion: Non visualized Amniotic Fluid DES FV: Average Largest Pocket(cm) 6.44 - BIOMETRY: BPD: 46 mm G.Age: 19w 6d 88 % HC: 164.1 mm G.Age: 19w 1d 57 % AC: 138.8 mm G.Age: 19w 2d 60 % FL: 31.2 mm G.Age: 19w 5d 73 % HUM: 27.6 mm G.Age: 18w 6d 50 % CER: 17.5 mm G.Age: 17w 4d 15 % NFT: 4.0 mm LV: 5.3 mm CM: 4.2 mm OOD: 29.3 mm G.Age: 18w 2d 43 % ULN: 25.5 mm G.Age: 19w 1d 49 % TIB: 26 mm G.Age: 19w 2d 66 % RAD: 21.8 mm G.Age: 17w 6d 31 % FIB: 25.1 mm G.Age: 18w 5d 60 % Foot: 31.9 mm G.Age: 19w 5d 87 % CI: 78.6 % FL/HC: 19.0 % HC/AC: 1.18 FL/BPD: 67.8 % FL/AC: 22.5 % Est. FW: 294 gm 0 lb 10 oz 75 % - TARGETED ANATOMY: Central Nervous System Calvarium/Cranial V.: Visualized Intracranial Zoran: Visualized Cavum: Visualized Choroid Plexus: Visualized Cereb./Vermis: Visualized Midline Falx: Visualized Spine Cervical: Visualized Thoracic: Visualized Lumbar: Visualized Sacral: Visualized Head/Neck Lips: Visualized midface Palate: Limited Profile: Visualized +NB Orbits/Eyes: Visualized lenses Thorax Lungs: Visualized 4 Chamber View: Septal only Cardiac Activity: Normal Cardiac Rhythm: Normal Cardiac Situs: Normal Rt Outflow Tract: Visualized Lt Outflow Tract: Limited Aortic Arch: Non-visualized Ductal Arch: Limited SVC: Limited Cardiac Philpot: (more content not included)... RADIOLOGY System, Provider Not In - 12/30/2024 - OBSTETRICS REPORT (Signed Final 12/30/2024 04:11 pm) - PATIENT INFO: ID #: [id number] : [birth year] (39 yrs)(F) Name: LATONYA RODARTE Visit Date: 12/30/2024 08:01 am - PERFORMED BY: Performed By: Paris Sevilla, MS, RDMS, RVT Attending: Birgit Wood MD Referred By: Raquel Lainez MD Ref. 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 By: LMP (08/20/24) WES: 05/27/25 - CERVIX UTERUS ADNEXA: Cervix Length: 3.19 cm. No change with pressure. Uterus Didelphic uterus Right Ovary Not seen due to bowel gas Left Ovary Not seen due to bowel gas - EVALUATION: Num Of Fetuses: 1 Preg. Location: Intrauterine Heart Rate(bpm): 157 Cardiac Activity: Observed Presentation: Transverse to Breech Placenta: Posterior P. Cord Insertion: Non visualized Amniotic Fluid DES FV: Average Largest Pocket(cm) 6.44 - BIOMETRY: BPD: 46 mm G.Age: 19w 6d 88 % HC: 164.1 mm G.Age: 19w 1d 57 % AC: 138.8 mm G.Age: 19w 2d 60 % FL: 31.2 mm G.Age: 19w 5d 73 % HUM: 27.6 mm G.Age: 18w 6d 50 % CER: 17.5 mm G.Age: 17w 4d 15 % NFT: 4.0 mm LV: 5.3 mm CM: 4.2 mm OOD: 29.3 mm G.Age: 18w 2d 43 % ULN: 25.5 mm G.Age: 19w 1d 49 % TIB: 26 mm G.Age: 19w 2d 66 % RAD: 21.8 mm G.Age: 17w 6d 31 % FIB: 25.1 mm G.Age: 18w 5d 60 % Foot: 31.9 mm G.Age: 19w 5d 87 % CI: 78.6 % FL/HC: 19.0 % HC/AC: 1.18 FL/BPD: 67.8 % FL/AC: 22.5 % Est. FW: 294 gm 0 lb 10 oz 75 % - TARGETED ANATOMY: Central Nervous System Calvarium/Cranial V.: Visualized Intracranial Zoran: Visualized Cavum: Visualized Choroid Plexus: Visualized Cereb./Vermis: Visualized Midline Falx: Visualized Spine Cervical: Visualized Thoracic: Visualized Lumbar: Visualized Sacral: Visualized Head/Neck Lips: Visualized midface Palate: Limited Profile: Visualized +NB Orbits/Eyes: Visualized lenses Thorax Lungs: Visualized 4 Chamber View: Septal only Cardiac Activity: Normal Cardiac Rhythm: Normal Cardiac Situs: Normal Rt Outflow Tract: Visualized Lt Outflow Tract: Limited Aortic Arch: Non-visualized Ductal Arch: Limited SVC: Limited Cardiac Philpot: Normal Diaphragm: Visualized LT and RT 3 Vessel View: Limited 3 V Trachea View: Visualized IVC: Limited Crossing: Limited Abdomen Ventral Wall: Visualized Cord Insertion: Visualized Situs: Normal Stomach: Visualized Lt Kidney: Visualized Rt Kidney: Visualized Bladder: Visualized Bowel: Visualized Extremities Lt Humerus: Visualized Rt Humerus: Visualized Lt Forearm: Visualized Rt Forearm: Visualized Lt Hand: Open Rt Hand: Open Lt Femur: Visualized Rt Femur: Visualized Lt Lower Leg: Visualized Rt Lower Leg: Visualized Lt Foot: Visualized Rt Foot: Visualized Other Umbilical Cord: 3-vessel Genitalia: Male Comment: Bilateral renal arteries visualized - IMPRESSION: 2nd Trimester Detailed Summary 1. [place] intrauterine in the Transverse to Breech presentation with a gestational age of 18w 6d based on the menstrual dates. The WES is 05/27/2025. 2. Harika (more content not included)... U [facility] Radiology Study observation (narrative) [facility] OB ultrasound panelOrdered B y: Provider System on 12-30-2024 U [facility] Laboratory - Chemistry and C hemistry - challengeOrdered By: Iman Brenner on 12-24-2024 Glucose Ql (U) Negative [facility] Laboratory - UrinalysisOrder ed By: Iman Brenner on 12-24-2024 Protein Ql (U) Negative [facility] Sales Operations Director Office Visit Reporton 12-24-2024 Sales Operations Director Office Visit Report [facility] [address], [address] [place] [address] OFFICE VISIT Date of Service: 12/24/24 MR#: [id number] Acct: [id number] Name: LATONYA RODARTE Rep #: [id number] : 1985 Provider: Dr. Iman Silverman DO Age/Sex: 39/F [place] [facility] [place]: Signed Intake Vital Signs 11/13/24 08:10 11/18/24 14:11 11/26/24 14:39 12/24/24 11:50 Height 5 ft 4 in 5 ft 4 in 5 ft 4 in 5 ft 4 in Weight: 171 lb BMI 29.3 BP 123/73 H Intake Visit Reasons: 18wk ob * DOC ONLY Palliative Nurse Required: No Is patient in pain?: No Feel stressed/tense/nervous/ anxious/difficulty sleeping: not at all Allergies ampicillin Allergy (Verified 12/24/24 11:50) Hives Medications ???Medication ???Instructions ???Recorded ???Confirmed ???Type Lactobacillus 25 billion cap PO 10/14/24 12/24/24 History cell-Bifido 25 billion hrij-CPL-wgrne capsule aspirin 81 mg tablet,delayed 81 mg PO QDAY 10/14/24 12/24/24 Hi story release choline 250 mg tablet 250 mg PO QDAY 10/14/24 12/24/24 H istory glycerin (laxative) 5.4 gram/5.4 See Rx Instructions .Route DAILY 0 10/14/24 12/24/24 History mL rectal solution through stoma with 9ml liquid castile soap multivitamin no.47-iron fum 27 cap PO 10/14/24 12/24/24 History mg-folate no.1 1 mg-dha 300 mg capsule (PNV-DHA) soap ea topical 10/14/24 12/24/24 Histo ry levothyroxine 62.5 mcg capsule 62.5 mcg PO QDAY #30 caps 11/03/24 12/24/24 Rx fosfomycin tromethamine 3 gram 3 g [...] 3-4 times per week duration: 15-30 minutes/day sotero/yazidism: None seatbelt use: always do you feel safe at home: Yes 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 Date Name GA/Weeks Outcome Route Bth Weight [facility] F[facility] Unknown February 25, 2024 4 spontaneous Delivery Date: Last Updated by: Ginny M Ketler failed IVF transfer HPI 18wk ob * DOC ONLY Details: LATONYA RODARTE is a 39 year old who presents for routine OB visit. OB Visit WES Calculator Estimated Delivery Date Method Current WG Current Estimate 05/27/25 Conception 18w 0d Expected Delivery Route/Plan requests primary section [...] ??- EGA Weight BP Urine Prot -???-???-???-???-???-?? ?- (more content not included)... Normal [facility] T4 Free Directon 12-03-2024 T4 FREE DIRECT 1.10 ng/dL Normal 0.76-1.46 [facility] Comment on above: Performed By: #### L 509.4006, L3890.6301, L100.0100, BTS, L3890.6102, L509.8002, L3890.6006, L506.0400, L501.9520 #### [facility] [address] [place], [place], [address] T4 freeOrdered By: Iman Brenner on 12-03-2024 Free T4 [Mass/Vol] 1.10 ng/dL 0.76-1.46 [facility] TSH DL <= 0.005 mIU/L QnOrde red By: Iman Brennre on 12-03-2024 TSH Qn 1.370 uIU/mL 0.300-4.200 [facility] Thyroid Stim Hormone (TSH)on 12-03-2024 TSH 1.370 uIU/mL Normal 0.300-4.200 [facility] Comment on above: Performed By: #### L 509.4006, L3890.6301, L100.0100, BTS, L3890.6102, L509.8002, L3890.6006, L506.0400, L501.9520 #### [facility] [address] [place], [address] Laboratory - Chemistry and C hemistry - challengeOrdered By: Iman Brenner on 11-26-2024 Glucose Ql (U) Negative [facility] - UrinalysisOrder ed By: Iman Brenner on 11-26-2024 Protein Ql (U) Negative [facility] Sales Operations Director Office Visit Reporton 11-26-2024 Sales Operations Director Office Visit Report [facility] [address], [address] [place] [address] OFFICE VISIT Date of Service: 11/26/24 MR#: [id number] Acct: [id number] Name: LATONYA RODARTE Rep #: [id number] : 1985 Provider: Dr. Iman Silverman DO Age/Sex: 39/F [place] [facility] [place] Status: Signed Intake Vital Signs 01/26/21 17:03 11/18/24 14:11 11/26/24 14:39 11/26/24 14:39 Height 5 ft 4 in 5 ft 4 in 5 ft 4 in 5 ft 4 in Weight: 172 lb BMI 29.5 BP 109/73 Intake Visit Reasons: 14wk OB * DOC ONLY Palliative Nurse Required: No Is patient in pain?: No Allergies ampicillin Allergy (Verified 11/26/24 14:38) Hives Medications ???Medication ???Instructions ???Recorded ???Confirmed ???Type Lactobacillus 25 billion cap PO 10/14/24 11/26/24 History cell-Bifido 25 billion sypj-SWU-rqopx capsule aspirin 81 mg tablet,delayed 81 mg [...] 3-4 times per week duration: 15-30 minutes/day sotero/yazidism: None seatbelt use: always do you feel safe at home: Yes 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 (more content not included)... Normal [facility] Urine Cultureon 11-22-2024 [facility] RESULTS CALLED TO VIVIANA Tellez 11/21/24 0911 Nolvia Leon. REPORT READ BACK BY . Urine Culture Copy of report sent to Infection Control Printer [id number] 11/21/24 0911 [facility] Escherichia coli [place] Count 80,000-100,000 MARKER [facility] producing OrganismA [facility] producing OrganismA [place] Count 50,000-80,000 Enterococcus faecalis Ampicillin Islt MARIAMA [...] S Vancomycin Islt MARIAMA 2 S Normal [facility] Comment on above: Performed By: #### L 509.4006, L3890.6301, L100.0100, BTS, L3890.6102, L509.8002, L3890.6006, L506.0400, L501.9520 #### [facility] [address] [place], [address] Progress Noteon 11-21-2024 Truck Service Manager Authentication Interface Message Text [facility] Antepartum Consult Note I had [...] Insecurity: No Food Insecurity (04/10/2024) Received from [facility] Hunger Vital Sign Worried About Running Out of Food in the Last Year: Never true Ran Out of Food in the Last Year: Never true Transportation Needs: No Transportation Needs (04/10/2024) Received from [facility] PRAPARE - Transportation Lack of Transportation (Medical): No Lack of Transportation (Non-Medical): No Housing Stability: Low Risk (04/10/2024) Received from [facility] Housing Stability Vital Sign Unable to Pay [...] 2d with an WES of 05/27/2025. 2. [place] rump length measurement is consistent with established [...] primary surgical (more content not included)... Normal [facility] Laboratory - Chemistry and C hemistry - challengeOrdered By: Jesse Horvath on 11-18-2024 Bilirubin Ql (U) Negative [facility] Glucose Ql (U) Negative [facility] Ketones Ql (U) Negative [facility] pH (U) 5 [pH] [facility] Specific gravity (U) [Rel density] 1.015 [facility] Urobilinogen (U) [Mass/Vol] Negative [facility] Laboratory - Hematology and Cell countsOrdered By: Jesse Horvath on 11-18-2024 Hemoglobin Ql (U) Negative [facility] - Specimen inform ationOrdered By: Jesse Horvath on 11-18-2024 Clarity (U) Clear [facility] Color (U) YELLOW [facility] - UrinalysisOrder ed By: Jesse [place] on 11-18-2024 Nitrite Ql (U) Negative [facility] Protein Ql (U) Negative [facility] No Panel InformationOrdered By: Jesse Horvath on 11-18-2024 Urine Leukocytes Negatve [facility] Urine Non-Hemolyzed Blood [facility] Sales Operations Director Office Visit Reporton 11-18-2024 Sales Operations Director Office Visit Report [facility] [address], [address] [place] [address] OFFICE VISIT Date of Service: 11/18/24 MR#: [id number] Acct: [id number] Name: LATONYA RODARTE Rep #: [id number] : 1985 Provider: FERNANDO monet Age/Sex: 39/F [place] [facility] [place]: Signed Intake Vital Signs 11/13/24 08:10 11/18/24 14:11 Height 5 ft 4 in 5 ft 4 in Weight: 171 lb BMI 29.3 BP 126/75 H Intake Visit Reasons: UTI check Chief Complaint: UTI Check Palliative Nurse Required: No Is patient in pain?: No Allergies ampicillin Allergy (Verified 11/18/24 14:11) Hives Medications ???Medication ???Instructions ???Recorded ???Confirmed ???Type Lactobacillus 25 billion cap PO 10/14/24 11/18/24 History cell-Bifido 25 billion iwih-VZR-auxwf capsule aspirin 81 mg tablet,delayed 81 mg [...] 3-4 times per week duration: 15-30 minutes/day sotero/yazidism: None seatbelt use: always do you feel safe at home: Yes 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 Normal [facility] Transvaginal w/Preg USon Transvaginal w/Preg US [facility] Imaging Services [address] [place] [address] Transvaginal w/Preg US MR#: [id number] Acct: [id number] Name: LATONYA RODARTE Rep #: [id number] : 1985 F 39 From: Glenda White PCP: Dr. Imani Helm DO Status: REG CLI Study: Transvaginal w/Preg US Date of Exam: 11/18/24 Exam# [id number] Ordering Dr: Jesse Horvath NP DEVICE REPAIR TECHNICIAN -C PROCEDURE: TRANSVAGINAL W/PREG US 11/18/2024 REASON [...] ovaries are not well seen. Reading Location: [id number] CC: FERNANDO Horvath; Dr. Imani Helm DO Poultry Inseminator: Signed Normal [facility] Urine cultureOrdered By: Lesley Horvath on 11-18-2024 Bacteria identified Cx Nom (U) ESBL Escherichia coli Abnormal [facility] Bacteria identified Cx Nom (U) Enterococcus faecalis Abnormal [facility] Sales Operations Director Office Visit Reporton 11-13-2024 Sales Operations Director Office Visit Report [facility] [address], [address] [place] [address] OFFICE VISIT Date of Service: 11/13/24 MR#: [id number] Acct: [id number] Name: LATONYA RODARTE Rep #: [id number] : 1985 Provider: Dr. Kaila cali MD Age/Sex: 39/F [place] [facility] [place]: Signed Intake Vital Signs 10/30/24 09:10 11/06/24 14:14 11/13/24 08:10 Height 5 ft 4 in 5 ft 4 in 5 ft 4 in Weight: 167 lb 2 oz BMI 28.7 BP 109/64 Intake Visit Reasons: 12 wk ob Palliative Nurse Required: No Is patient in pain?: No Allergies ampicillin Allergy (Verified 11/13/24 08:12) Hives Medications ???Medication ???Instructions ???Recorded ???Confirmed ???Type Lactobacillus 25 billion cap PO 10/14/24 11/13/24 History cell-Bifido 25 billion zibk-JRP-upyxo capsule aspirin 81 mg tablet,delayed 81 mg [...] 3-4 times per week duration: 15-30 minutes/day sotero/yazidism: None seatbelt use: always do you feel safe at home: Yes 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 ?-???-???-???-??? (more content not included)... Normal [facility] Urine Cultureon 11-07-2024 URC Culture exhibits no growth. Normal [facility] Comment on above: Performed By: #### L 509.4006, L3890.6301, L100.0100, BTS, L3890.6102, L509.8002, L3890.6006, L506.0400, L501.9520 #### [facility] [place], [address] Sales Operations Director Office Visit Reporton 11-06-2024 Sales Operations Director Office Visit Report [facility] [address], [address] [place] [address] OFFICE VISIT Date of Service: 11/06/24 MR#: [id number] Acct: [id number] Name: LATONYA RODARTE Rep #: [id number] : 1985 Provider: Dr. Kaila cali MD Age/Sex: 39/F [place] [facility] [place]: Signed Intake Vital Signs 10/30/24 09:10 11/06/24 14:08 11/06/24 14:14 Height 5 ft 4 in 5 ft 4 in 5 ft 4 in Weight: 172 lb 2 oz BMI 29.5 BP 102/70 Intake Visit Reasons: Repeat Urine Culture Chief Complaint: Urine Culture Palliative Nurse Required: No Is patient in pain?: No Allergies ampicillin Allergy (Verified 11/06/24 14:04) Hives Medications ???Medication ???Instructions ???Recorded ???Confirmed ???Type Lactobacillus 25 billion cap PO 10/14/24 11/06/24 History cell-Bifido 25 billion blaq-CHL-xnxcs capsule aspirin 81 mg tablet,delayed 81 mg [...] 3-4 times per week duration: 15-30 minutes/day sotero/yazidism: None seatbelt use: always do you feel safe at home: Yes 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 (more content not included)... Normal [facility] Urine cultureOrdered By: Bk Paige on 11-06-2024 Bacteria identified Cx Nom (U) Culture exhibits no growth. [facility] Absolute lymphocyte countOrd ered By: Kaila Paige on 10-30-2024 Lymphocytes Auto (Unsp spec) [#/Vol] 2.06 10*3/uL 0.83-4.51 [facility] Absolute neutrophil countOrd ered By: Kaila Paige on 10-30-2024 Neutrophils (Bld) [#/Vol] 5.6 10*3/uL 2.0-7.7 [facility] Automated lymphocyte count a s percentage of total leukocytesOrdered By: Kaila Paige on 10-30-2024 Lymphocytes/100 WBC Auto (Unsp spec) 24.3 % 19-41 [facility] Basophil percentageOrdered B y: Kalia Paige on 10-30-2024 Basophils/100 WBC (Bld) 0.6 % 0-1 [facility] CBC W/Diff, Automatedon 10-16 Absolute Lymph 2.06 X10 3/uL Normal 0.83-4.51 [facility] Comment on above: Performed By: #### L 509.4006, L3890.6301, L100.0100, BTS, L3890.6102, L509.8002, L3890.6006, L506.0400, L501.9520 #### [facility] [address] [place], [address] Absolute Neut 5.6 X10 3/uL Normal 2.0-7.7 [facility] Comment on above: Performed By: #### L 509.4006, L3890.6301, L100.0100, BTS, L3890.6102, L509.8002, L3890.6006, L506.0400, L501.9520 #### [facility] [address] [place], [address] Basophils/100 WBC (Bld) 0.6 % Normal 0-1 [facility] Comment on above: Performed By: #### L 509.4006, L3890.6301, L100.0100, BTS, L3890.6102, L509.8002, L3890.6006, L506.0400, L501.9520 #### [facility] [address] [place], [address] Eosinophils/100 WBC (Bld) 0.9 % Normal 0-5 [facility] Comment on above: Performed By: #### L 509.4006, L3890.6301, L100.0100, BTS, L3890.6102, L509.8002, L3890.6006, L506.0400, L501.9520 #### [facility] [address] [place], [address] Erythrocyte distribution width (RBC) [Ratio] 12.9 % Normal 11.6-14.6 [facility] Comment on above: Performed By: #### L 509.4006, L3890.6301, L100.0100, BTS, L3890.6102, L509.8002, L3890.6006, L506.0400, L501.9520 #### [facility] [address] [facility] [place], [address] Hematocrit (Bld) [Volume fraction] 41.8 % Normal 37-47 [facility] Comment on above: Performed By: #### L 509.4006, L3890.6301, L100.0100, BTS, L3890.6102, L509.8002, L3890.6006, L506.0400, L501.9520 #### [facility] [address] [place], [address] Hemoglobin (Bld) [Mass/Vol] 13.7 g/dL Normal 12.0-15.0 [facility] Comment on above: Performed By: #### L 509.4006, L3890.6301, L100.0100, BTS, L3890.6102, L509.8002, L3890.6006, L506.0400, L501.9520 #### [facility] [address] [place], [address] IG% 0.200 Normal 0.0-0.9 [facility] Comment on above: Result Comment: IG% - Immature Granulocytes (promyelocytes, myelocytes and metamyelocytes) > 1% indicates that a LEFT SHIFT is Present. Performed By: #### L 509.4006, L3890.6301, L100.0100, BTS, L3890.6102, L509.8002, L3890.6006, L506.0400, L501.9520 #### [facility] [address] [facility] [place], [address] Lymphocytes/100 WBC (Bld) 24.3 % Normal 19-41 [facility] Comment on above: Performed By: #### L 509.4006, L3890.6301, L100.0100, BTS, L3890.6102, L509.8002, L3890.6006, L506.0400, L501.9520 #### [facility] [address] [place], [address] MCH (RBC) [Entitic mass] 30.3 pg Normal 27.0-32.0 [facility] Comment on above: Performed By: #### L 509.4006, L3890.6301, L100.0100, BTS, L3890.6102, L509.8002, L3890.6006, L506.0400, L501.9520 #### [facility] [address] [facility] [place], [address] MCHC (RBC) [Mass/Vol] 32.8 g/dL Normal 32-36 [facility] Comment on above: Performed By: #### L 509.4006, L3890.6301, L100.0100, BTS, L3890.6102, L509.8002, L3890.6006, L506.0400, L501.9520 #### [facility] [address] [facility] [place], [address] MCV (RBC) [Entitic vol] 92.5 fL Normal 81-99 [facility] Comment on above: Performed By: #### L 509.4006, L3890.6301, L100.0100, BTS, L3890.6102, L509.8002, L3890.6006, L506.0400, L501.9520 #### [facility] [address] [facility] [place], [address] Monocytes/100 WBC (Bld) 7.9 % Normal 0-10 [facility] Comment on above: Performed By: #### L 509.4006, L3890.6301, L100.0100, BTS, L3890.6102, L509.8002, L3890.6006, L506.0400, L501.9520 #### [facility] [address] [place], [address] Neutrophils/100 WBC (Bld) 66.1 % Normal 47-70 [facility] Comment on above: Performed By: #### L 509.4006, L3890.6301, L100.0100, BTS, L3890.6102, L509.8002, L3890.6006, L506.0400, L501.9520 #### [facility] [address] [place], [address] Nucleated RBC (Bld) [#/Vol] 0 10*3/uL Normal 0-5 [facility] Comment on above: Performed By: #### L 509.4006, L3890.6301, L100.0100, BTS, L3890.6102, L509.8002, L3890.6006, L506.0400, L501.9520 #### [facility] [address] [place], [address] Platelet mean volume (Bld) [Entitic vol] 10.5 fL Normal 6.2-12.0 [facility] Comment on above: Performed By: #### L 509.4006, L3890.6301, L100.0100, BTS, L3890.6102, L509.8002, L3890.6006, L506.0400, L501.9520 #### [facility] [address] [place], [address] Platelets (Bld) [#/Vol] 320 10*3/uL Normal 150-450 [facility] Comment on above: Performed By: #### L 509.4006, L3890.6301, L100.0100, BTS, L3890.6102, L509.8002, L3890.6006, L506.0400, L501.9520 #### [facility] [address] [place], [address] RBC (Bld) [#/Vol] 4.52 10*6/uL Normal 4.2-5.4 [facility] Comment on above: Performed By: #### L 509.4006, L3890.6301, L100.0100, BTS, L3890.6102, L509.8002, L3890.6006, L506.0400, L501.9520 #### [facility] [address] [place], [address] RDW SD 43.1 fl Normal 35.1-43.9 [facility] Comment on above: Performed By: #### L 509.4006, L3890.6301, L100.0100, BTS, L3890.6102, L509.8002, L3890.6006, L506.0400, L501.9520 #### [facility] [address] [place], [address] WBC (Bld) [#/Vol] 8.5 10*3/uL Normal 4.4-11.0 [facility] Comment on above: Performed By: #### L 509.4006, L3890.6301, L100.0100, BTS, L3890.6102, L509.8002, L3890.6006, L506.0400, L501.9520 #### [facility] [address] [place], [address] Eosinophil percentageOrdered By: Kaila Paige on 10-30-2024 Eosinophils/100 WBC (Bld) 0.9 % 0-5 [facility] Erythrocyte distribution wid th ratioOrdered By: Kaila Paige on 10-30-2024 Erythrocyte distribution width (RBC) [Ratio] 12.9 % 11.6-14.6 [facility] Erythrocyte distribution wid th standard deviationOrdered By: Kaila Paige on 10-30-2024 Erythrocyte distribution width (RBC) [Ratio] 43.1 fl 35.1-43.9 [facility] HIVon 10-30-2024 HIV Non-Reactive Normal Nonreactive [facility] Comment on above: Result Comment: Non- Reactive Reactive Repeatedly reactive samples must be confirmed according to CDC recommended confirmatory algorithms. The subresults for either HIVAG or AHIV can be used as an aid in the selection of the confirmation algorithm for reactive samples. Send out specimens with Reactive results to [facility] for confirmation. Order the HIV antibody detection and differentiation: lc#[id number] Performed By: #### L 509.4006, L3890.6301, L100.0100, BTS, L3890.6102, L509.8002, L3890.6006, L506.0400, L501.9520 #### [facility] [address] [place], [place], [address] Hematocrit Auto (Bld) [Volum e fraction]Ordered By: Kaila Paige on 10-30-2024 Hematocrit (Bld) [Volume fraction] 41.8 % 37-47 [facility] Hemoglobin measurementOrdere d By: Kaila Hsuivanna on 10-30-2024 Hemoglobin (Bld) [Mass/Vol] 13.7 g/dL 12.0-15.0 [facility] Hepatitis C Antibodyon 10-30 Hepatitis C Ab Non-Reactive Normal Nonreactive [facility] Comment on above: Result Comment: Reac tive: Presumptive evidence of antibodies to HCV. Follow CDC recommendations for supplemental testing. Non-Reactive: Antibodies to HCV were not detected; does not exclude the possibility of exposure to HCV Reactive Results are presumptive evidence of antibodies to HCV. Follow CDC recommendations for supplemental testing. Order confirmation testing: HCV Quant by PCR testing - HCVPCR #[id number] Non Reactive: < 0.8 Equivocal: >/= 0.8 to < 1.0 Reactive: >/= 1.0 The CDC requires that a reactive/equivocal HCV antibody result be sent out for confirmation. HCV Quant by PCR testing. Performed By: #### L 509.4006, L3890.6301, L100.0100, BTS, L3890.6102, L509.8002, L3890.6006, L506.0400, L501.9520 #### [facility] [address] [facility]. [place], [place], [address] Immature granulocytes/100 WB C Auto (Bld)Ordered By: Kaila Paige on 10-30-2024 Immature granulocytes/100 WBC (Bld) 0.200 % 0.0-0.9 [facility] Comment on above: IG% - Immature Granu locytes (promyelocytes, myelocytes and metamyelocytes) > 1% indicates that a LEFT SHIFT is Present. L3890.6102on 10-30-2024 HEP B Surf Ag Non-Reactive Normal Nonreactive [facility] Comment on above: Result Comment: Reac tive: Presumptive evidence of HBV. Repeatedly reactive samples must be confirmed using a neutralization test ([employer] HBsAg Confirmatory Test) Non-Reactive: HBsAg not detected; does not exclude the possibility of exposure to HBV Performed By: #### L 509.4006, L3890.6301, L100.0100, BTS, L3890.6102, L509.8002, L3890.6006, L506.0400, L501.9520 #### [facility] [address] [facility]. [place], [place], [address] L509.4006on 10-30-2024 Rubella IgG REAC Normal Nonreactive [facility] Comment on above: Result Comment: Anti body Result: Interpretation Non-Reactive: Non-Immune Reactive: Immune The following results were obtained with the [employer] Rubella IgG assay. Results from assays of other manufacturers cannot be used interchangeably. Performed By: #### L 509.4006, L3890.6301, L100.0100, BTS, L3890.6102, L509.8002, L3890.6006, L506.0400, L501.9520 #### [facility] [address] [place], [place], [address] Laboratory - Chemistry and C hemistry - challengeOrdered By: Kaila Paige on 10-30-2024 Glucose Ql (U) Negative [facility] - Microbiology an d Antimicrobial susceptibilityOrdered By: Kaila Paige on 10-30-2024 HBV surface Ag Ql (S) Non-Reactive Nonreactive [facility] Comment on above: Reactive: Presumptiv e evidence of HBV. Repeatedly reactive samples must be confirmed using a neutralization test ([employer] HBsAg Confirmatory Test)Non-Reactive: HBsAg not detected; does not exclude the possibility of exposure to HBV Laboratory - UrinalysisOrder ed By: Kaila Paige on 10-30-2024 Protein Ql (U) Negative [facility] MCV (mean corpuscular volume ) determinationOrdered By: Kaila Paige on 10-30-2024 MCV (RBC) [Entitic vol] 92.5 fL 81-99 [facility] Mean corpuscular hemoglobin (MCH) determinationOrdered By: Kiala Paige on 10-30-2024 MCH (RBC) [Entitic mass] 30.3 pg 27.0-32.0 [facility] Mean corpuscular hemoglobin concentration (MCHC) determinationOrdered By: Kaila Paige on 10-30-2024 MCHC (RBC) [Mass/Vol] 32.8 g/dL 32-36 [facility] Mean platelet volume determi nationOrdered By: Kaila Paige on 10-30-2024 Platelet mean volume (Bld) [Entitic vol] 10.5 fL 6.2-12.0 [facility] Monocyte percentageOrdered B y: Kaila Paige on 10-30-2024 Monocytes/100 WBC (Bld) 7.9 % 0-10 [facility] Neutrophil percentageOrdered By: Kaila Paige on 10-30-2024 Neutrophils/100 WBC (Bld) 66.1 % 47-70 [facility] No Panel InformationOrdered By: Kaila Paige on 10-30-2024 HIV (1&2) Antibody Non-Reactive Nonreactive [facility] Comment on above: Non-ReactiveReactive Repeatedly reactive samples must be confirmed according to CDC recommended confirmatory algorithms. The subresults for either HIVAG or AHIV can be used as an aid in the selection of the confirmation algorithm for reactive samples.Send out specimens with Reactive results to [facility] for confirmation.Order the HIV antibody detection and differentiation: #[id number] Nucleated red blood cell per centageOrdered By: Kaila Paige on 10-30-2024 Nucleated RBC/100 WBC (Bld) [Ratio] 0 % 0-5 [facility] Sales Operations Director Office Visit Reporton 10-30-2024 Sales Operations Director Office Visit Report [facility] [address], [address] [place] [address] OFFICE VISIT Date of Service: 10/30/24 MR#: [id number] Acct: [id number] Name: LATONYA RODARTE Rep #: [id number] : 1985 Provider: Dr. Kaila cali MD Age/Sex: 39/F [place] [facility] [place]: Signed Intake Vital Signs 10/24/24 11:42 10/30/24 09:05 10/30/24 09:10 Height 5 ft 4 in 5 ft 4 in 5 ft 4 in Weight: 165 lb 4 oz BMI 28.3 BP 116/70 Intake Visit Reasons: 10W 1D [employer] CK per JV Palliative Nurse Required: No Is patient in pain?: No Allergies ampicillin Allergy (Verified 10/30/24 09:05) Hives Medications ???Medication ???Instructions ???Recorded ???Confirmed ???Type Lactobacillus 25 billion cap PO 10/14/24 10/30/24 History cell-Bifido 25 billion fqjq-MSO-csrfy capsule aspirin 81 mg tablet,delayed 81 mg [...] (Updated 10/30/24 @ 09:[address] Kaila Paige MD) History of ESBL E. 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 ? (more content not included)... Normal [facility] Platelet countOrdered By: Mari Paige on 10-30-2024 Platelets (Bld) [#/Vol] 320 10*3/uL 150-450 [facility] RBC Auto (Bld) [#/Vol]Ordere d By: Kaila Paige on 10-30-2024 RBC (Bld) [#/Vol] 4.52 10*6/uL 4.2-5.4 [facility] Syphilis Antibodieson 2024 Syphilis Abs Non-Reactive Normal Nonreactive [facility] Comment on above: Performed By: #### L 509.4006, L3890.6301, L100.0100, BTS, L3890.6102, L509.8002, L3890.6006, L506.0400, L501.9520 #### [facility] [address] [place], [address] T4 Free Directon 10-30-2024 T4 FREE DIRECT 1.50 ng/dL High 0.76-1.46 [facility] Comment on above: Performed By: #### L 509.4006, L3890.6301, L100.0100, BTS, L3890.6102, L509.8002, L3890.6006, L506.0400, L501.9520 #### [facility] [address] [place], [place], [address] T4 freeOrdered By: Kaila pickens on 10-30-2024 Free T4 [Mass/Vol] 1.50 ng/dL High 0.76-1.46 [facility] TSH DL <= 0.005 mIU/L QnOrde red By: Kaila Paige on 10-30-2024 TSH Qn 1.320 uIU/mL 0.300-4.200 [facility] Thyroid Stim Hormone (TSH)on 10-30-2024 TSH 1.320 uIU/mL Normal 0.300-4.200 [facility] Comment on above: Performed By: #### L 509.4006, L3890.6301, L100.0100, BTS, L3890.6102, L509.8002, L3890.6006, L506.0400, L501.9520 #### [facility] [address] [place], [place], [address] Type AND Screenon 10-30-2024 Ab SCREEN GEL Negative Normal [facility] Comment on above: Order Comment: PN Performed By: #### L 509.4006, L3890.6301, L100.0100, BTS, L3890.6102, L509.8002, L3890.6006, L506.0400, L501.9520 #### [facility] [address] [place], [place], [address] White blood cell (WBC) count Ordered By: Kaila Paige on 10-30-2024 WBC (Bld) [#/Vol] 8.5 10*3/uL 4.4-11.0 [facility] Chlamydia/GC MONICA aptimaon CHLAMY,NUC ACID Negative Normal Negative [facility] Comment on above: Performed By: #### L 509.4006, L3890.6301, L100.0100, BTS, L3890.6102, L509.8002, L3890.6006, L506.0400, L501.9520 #### [facility] [address] [place], [address] GC BY NUC ACID Negative Normal Negative [facility] Comment on above: Result Comment: Perf ormed at: =G - [facility] [address] [id number] Practice Nurse: Alona Tanner MD, Phone: [phone] Performed By: #### L 509.4006, L3890.6301, L100.0100, BTS, L3890.6102, L509.8002, L3890.6006, L506.0400, L501.9520 #### [facility] [address] [place], [place], [address] Urine Cultureon 10-27-2024 UR Copy of report sent to Infection Control Printer MS#[id number] 10/26/24 Luis WHITTINGTON. Urine Culture [facility] 152Corina Leon. REPORT READ BACK BY . Urine Culture Urine Culture ESBL Escherichia coli [place] Count >100,000 MARKER ESBL producing OrganismA MARKER [...] TMP SMX Islt MARIAMA <=20 S Normal [facility] Comment on above: Performed By: #### L 509.4006, L3890.6301, L100.0100, BTS, L3890.6102, L509.8002, L3890.6006, L506.0400, L501.9520 #### [facility] [address] [place], [address] Chlamydia trachomatis rRNA d etection by probe and target amplification methodOrdered By: Kaila Paige on 10-24-2024 C. trachomatis rRNA MONICA+probe Ql (Unsp spec) Negative Negative [facility] Neisseria gonorrhoeae nuclei c acid detection by amplified probe techniqueOrdered By: Kaila Paige on 10-24-2024 N. gonorrhoeae DNA MONICA+probe Ql (Unsp spec) Negative Negative [facility] Comment on above: Performed at: =[address] [id number] Director: Alona Tanner MD, Phone: [phone] Sales Operations Director Office Visit Reporton 10-24-2024 Sales Operations Director Office Visit Report [facility] [address], [address] [place] [address] OFFICE VISIT Date of Service: 10/24/24 MR#: [id number] Acct: [id number] Name: LATONYA RODARTE Rep #: [id number] : 1985 Provider: Dr. Iman Silverman DO Age/Sex: 39/F [place] [facility] [place]: Signed Intake Vital Signs 01/26/21 17:03 10/14/24 10:25 10/24/24 11:39 10/24/24 11:42 Height 5 ft 4 in 5 ft 4 in 5 ft 4 in 5 ft 4 in Weight: 166 lb 4 oz BMI 28.5 BP 111/65 Intake Visit Reasons: NOB IVF transfer 09/09 Palliative Nurse Required: No Is patient in pain?: No Allergies ampicillin Allergy (Verified 10/24/24 11:39) Hives Medications ???Medication ???Instructions ???Recorded ???Confirmed ???Type Lactobacillus 25 billion cap PO 10/14/24 10/24/24 History cell-Bifido 25 billion atrl-UVU-fqmbz capsule aspirin 81 mg tablet,delayed 81 mg [...] Period: 08/21/24 Zika: Zika virus screening: Negative [facility] Medical History Lipoma of back Rectal atresia [...] 3-4 times per week duration: 15-30 minutes/day sotero/yazidism: None seatbelt use: always do you feel safe at home: Yes 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 Normal [facility] Urine cultureOrdered By: Bk Paige on 10-24-2024 Bacteria identified Cx Nom (U) ESBL Escherichia coli Abnormal [facility] - Chemistry and C hemistry - challengeOrdered By: Kaila Paige on 10-14-2024 HCG ( test) Ql (U) Positive [facility] Office Visit Reporton 2024 Office Visit Report [facility] [address] [place] [address] OFFICE VISIT Date of Service: 10/14/24 MR#: [id number] Acct: [id number] Patient: LATONYA RODARTE Rep #: [id number] : 1985 Provider: Dr. Kaila cali MD Age/Sex: 39/F [place] [facility] [place]: Signed Intake Vital Signs 01/26/21 17:03 10/14/24 10:25 Height 5 ft 4 in 5 ft 4 in Weight: 163 lb 8 oz BMI 28.0 BP 106/71 Blood Pressure Location Lt brachial Position Sitting Intake Visit Reasons: Confirmation for / Vitals Chief Complaint: fever, chills, nausea, abd pain Palliative Nurse Required: No Is patient in pain?: No Allergies ampicillin Allergy (Verified 10/14/24 10:26) Hives Medications ???Medication ???Instructions ???Recorded ???Confirmed ???Type Lactobacillus 25 billion cap PO 10/14/24 10/14/24 History cell-Bifido 25 billion xwgk-GXC-zxfnu capsule aspirin 81 mg tablet,delayed 81 mg [...] : Status: Acute Comment: , WES 05/27/25, Johnny([facility] Wire Frame Dipper) (4) History of miscarriage, currently : Status: [...] , unspecified trimester 10/15/24 1651 Date Kaila Paige MD Cosign Signature: Date (if applicable) CC: [facility] IR CECOSTOMY EXCHANGE WITH F May 10-09-2024 IR CECOSTOMY EXCHANGE WITH FLUORO IR tube change request Current tube: Mini ALEX Current tube size: 14 fr 6.5 cm Plan for IR tube change (what tube/size): same as above Please use fluoro to measure tract of henson to ensure appropriate size of tube is ordered. For all OUTPATIENT orders please call [phone] in addition to placing order. The on-call [...] exchange. The indwelling tube is a 14 English, 6 cm mini Alex button. Interpreted by: Doroteo Rodney MD Signed by: Doroteo Rodney MD on 10/09/2024 12:12 PM Normal [facility] RF Guidance for placement of tube in Gastrointestinal tracton 10-09-2024 Impression: Cecostomy tube exchange. The indwelling tube is a 14 English, 6 cm mini Alex button. [facility] Doroteo Rodney MD - 10/09/2024 History: Constipation. 7 weeks . Procedure note: A timeout was performed per protocol. The patient's cecostomy tube was exchanged over a wire. The balloon was inflated and the line flushed. IMPRESSION Impression: Cecostomy tube exchange. The indwelling tube is a 14 English, 6 cm mini Alex button. [facility] Radiology Study observation (narrative) [facility] RF Guidance for placement of tube in Gastrointestinal tractOrdered By: Doroteo Rodney on 10-09-2024 [facility] Work Phone: US Kidneyon 10-09-2024 1. 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 2. Normal left kidney 3. No hydroureteronephrosis 4. Post void bladder residual volume. [facility] Kiki Singh MD - 10/09/2024 PROCEDURE: [...] hydroureteronephrosis 4. Post void bladder residual volume. [facility] Radiology Study observation (narrative) [facility] US KidneyOrdered By: Kiki miranda on 10-09-2024 [facility] Work Phone: IR CECOSTOMY EXCHANGE WITH F LUOROon 04-10-2024 IR CECOSTOMY EXCHANGE WITH FLUORO IR tube change request Current tube:mini ALEX Current tube size: 14 FR 6.5 cm Plan for IR tube change (what tube/size): Measure the tract using contrast is visualize the entire tract For all OUTPATIENT orders please call [phone] in addition to placing order. The on-call [...] None. LOCAL ANESTHESIA: 2ml of lidocaine jelly. DOVETAIL MACHINE OPERATOR: Anant Jo MD ASSISTANTS: None. SPECIMENS: None. [...] was measured at 6.5 cm. A new 12-English, 6 cm in length mini Alex button [...] tube exchange. The indwelling tube is a 12-English, 6 cm stomal length mini Alex button. Interpreted by: Anant Jo MD Signed by: Anant Jo MD on 04/10/2024 2:41 PM Normal [facility] RF Guidance for placement of tube in Gastrointestinal tracton 04-10-2024 1.Cecostomy tract length measured at 6.0 cm using a stoma length measuring device. Cecostomy tract length measured at 6.5 cm using contrast injection method. 2.Cecostomy tube exchange. The indwelling tube is a 12-English, 6 cm stomal length mini Alex button. [facility] STUDY: IR CECOSTOMY EXCHANGE WITH FLUORO 04/10/2024 2:27 PM REASON FOR EXAM: History of anorectal malformation ;Anorectal malformation PROCEDURE: Cecostomy tube exchange. PREOPERATIVE DIAGNOSIS: Constipation. POSTOPERATIVE DIAGNOSIS: Same ANESTHESIA: None. LOCAL ANESTHESIA: 2ml of lidocaine jelly. DOVETAIL MACHINE OPERATOR: nAant Jo MD ASSISTANTS: None. SPECIMENS: None. ESTIMATED [...] was measured at 6.5 cm. A new 12-English, 6 cm in length mini Alex button tube was advanced into position. The retention balloon was inflated to 4 mL contrast/water mix. Final position is satisfactory and was confirmed by injecting contrast through the tube and obtaining a spot film. [facility] Anant Jo MD - 04/10/2024 STUDY: IR CECOSTOMY EXCHANGE WITH FLUORO 04/10/2024 2:27 PM REASON FOR EXAM: History of anorectal malformation ;Anorectal malformation PROCEDURE: Cecostomy tube exchange. PREOPERATIVE DIAGNOSIS: Constipation. POSTOPERATIVE DIAGNOSIS: Same ANESTHESIA: None. LOCAL ANESTHESIA: 2ml of lidocaine jelly. DOVETAIL MACHINE OPERATOR: Anant Jo MD ASSISTANTS: None. SPECIMENS: None. [...] was measured at 6.5 cm. A new 12-English, 6 cm in length mini Alex button [...] tube exchange. The indwelling tube is a 12-English, 6 cm stomal length mini Alex button. [facility] Radiology Study observation (narrative) [facility] RF Guidance for placement of tube in Gastrointestinal tractOrdered By: Anant Jo on 04-10-2024 [facility] Work Phone: XR ABDOMEN - SUPINEon 2023 [...] Gregg MD on 04/10/2024 3:55 PM Normal [facility] XR Abdomen Supine and Uprigh ton 04-10-2024 Above average stool burden, stable since the prior study. Otherwise normal abdominal radiograph. [facility] REASON FOR EXAM: Ass ess Stool [...] SOFT TISSUES: Normal. CALCIFICATIONS: None. BONES: Normal. [facility] Denise Gregg MD - 04/10/2024 REASON [...] the prior study. Otherwise normal abdominal radiograph. [facility] Radiology Study observation (narrative) [facility] XR Abdomen Supine and Uprigh tOrdered By: Denise Gregg on 04-10-2024 [facility] Work Phone: Surgical pathology studyon 0 10-31-2023 Surgical pathology study Pathology report.total SEE COMMENT Surgical Pathology Case: [id number] Authorizing Provider: Von Adler MD Collected: 10/31/2023 1438 Ordering Location: [facility] Received: 11/01/2023 1535 Center Pathologist: Zev [...] specimen is entirely submitted in one cassette. B [facility] Basic Metabolic Panelon 10-16 CKD-EPI Estimated Glomerular Filtration Rate (eGFR) is calculated using the 2020 CKD-EPI creatinine equation. This equation uses serum creatinine, sex and age for calculating the eGFR. Normal [facility] Comment on above: Performed By: #### B MP #### [facility] [address] [place] [address] 09130 Anion gap [Moles/Vol] 10 mmol/L Normal 8-15 [facility] Comment on above: Performed By: #### B MP #### [facility] [address] [place] [address] 56912 Calcium [Mass/Vol] 9.1 mg/dL Normal 8.6-10.6 [facility] Comment on above: Performed By: #### B MP #### [facility] [address] [place] [address] 48895 Chloride [Moles/Vol] 106 mmol/L Normal 98-[address] [facility] Comment on above: Performed By: #### B MP #### [facility] [address] [place] [address] 76399 CO2 [Moles/Vol] 24 mmol/L Normal 22-29 [facility] Comment on above: Performed By: #### B MP #### [facility] [address] [place] [address] 42778 Creatinine [Mass/Vol] 0.9 mg/dL Normal 0.5-1.2 [facility] Comment on above: Performed By: #### B MP #### [facility] [address] [place] [address] 97186 eGFR 81 mL/min/1.73sqm Normal >=60 [facility] Comment on above: Performed By: #### B MP #### [facility] [address] [place] [address] 00949 Glucose [Mass/Vol] 80 mg/dL Normal 74-109 [facility] Comment on above: Performed By: #### B MP #### [facility] [address] [place] [address] 94111 Potassium [Moles/Vol] 3.7 mmol/L Normal 3.4-5.1 [facility] Comment on above: Performed By: #### B MP #### [facility] [address] [place] [address] 88623 Sodium [Moles/Vol] 140 mmol/L Normal 136-145 [facility] Comment on above: Performed By: #### B MP #### [facility] [address] [place] [address] 92713 Urea nitrogen [Mass/Vol] 19 mg/dL Normal 6-23 [facility] Comment on above: Performed By: #### B MP #### [facility] [address] [place] [address] 84647 CBC with Diffon 10-30-2023 BA# 0.1 x(10)3/cumm Normal 0.0-0.1 [facility] Comment on above: Performed By: #### C BCDIFF #### [facility] [address] [place] [address] 05127 Basophils/100 WBC (Bld) 1.0 % Normal 0.0-1.0 [facility] Comment on above: Performed By: #### C BCDIFF #### [facility] [address] [place] [address] 33042 EO# 0.1 x(10)3/cumm Normal 0.0-0.4 [facility] Comment on above: Performed By: #### C BCDIFF #### [facility] [address] [place] [address] 90255 Eosinophils/100 WBC (Bld) 1.7 % Normal 0.0-6.1 [facility] Comment on above: Performed By: #### C BCDIFF #### [facility] [address] [place], [place] [phone] Erythrocyte distribution width (RBC) [Ratio] 13.7 % Normal 11.1-15.3 [facility] Comment on above: Performed By: #### C BCDIFF #### [facility] [address] [place], [place] [phone] Hematocrit (Bld) [Volume fraction] 39.4 % Normal 34.6-45.0 [facility] Comment on above: Performed By: #### C BCDIFF #### [facility] [address] [place], [place] [phone] Hemoglobin (Bld) [Mass/Vol] 13.0 g/dL Normal 11.5-15.5 [facility] Comment on above: Performed By: #### C BCDIFF #### [facility] [address] [place], [place] [phone] LY# 2.3 x(10)3/cumm Normal 0.8-2.9 [facility] Comment on above: Performed By: #### C BCDIFF #### [facility] [address] [place] [address] 94669 Lymphocytes/100 WBC (Bld) 32.9 % Normal 12.2-42.6 [facility] Comment on above: Performed By: #### C BCDIFF #### [facility] [address] [place] [address] 23435 MCH (RBC) [Entitic mass] 30.4 pg Normal 27.2-33.6 [facility] Comment on above: Performed By: #### C BCDIFF #### [facility] [address] [place], [place] [phone] MCHC (RBC) [Mass/Vol] 33.0 g/dL Normal 32.9-35.3 [facility] Comment on above: Performed By: #### C BCDIFF #### [facility] [address] [place] [address] 13359 MCV (RBC) [Entitic vol] 92.0 fL Normal 81.3-96.7 [facility] Comment on above: Performed By: #### C BCDIFF #### [facility] [address] [place] [address] 06456 MO# 0.5 x(10)3/cumm Normal 0.2-0.8 [facility] Comment on above: Performed By: #### C BCDIFF #### [facility] [address] [place], [place] [phone] Monocytes/100 WBC (Bld) 7.9 % Normal 3.3-11.6 [facility] Comment on above: Performed By: #### C BCDIFF #### [facility] [address] [place], [place] [phone] NE# 3.9 x(10)3/cumm Normal 1.3-7.4 [facility] Comment on above: Performed By: #### C BCDIFF #### [facility] [address] [place] [address] 51675 Neutrophils/100 WBC (Bld) 56.5 % Normal 44.9-78.8 [facility] Comment on above: Performed By: #### C BCDIFF #### [facility] [address] [place] [address] 40415 Platelet mean volume (Bld) [Entitic vol] 8.9 fL Normal 6.4-10.0 [facility] Comment on above: Performed By: #### C BCDIFF #### [facility] [address] [place], [place] [phone] PLT 269 x(10)3/cumm Normal 138-367 [facility] Comment on above: Performed By: #### C BCDIFF #### [facility] [address] [place] [address] 67825 Plt Morph Normal [facility] Comment on above: Performed By: #### C BCDIFF #### [facility] [address] [place] [address] RBC 4.28 X(10)6/cumm Normal 3.90-5.10 [facility] Comment on above: Performed By: #### C BCDIFF #### [facility] [address] [place] [address] RBC Morph cont [facility] Comment on above: Performed By: #### C BCDIFF #### [facility] [address] [place] [address] RBC morphology finding Nom (Bld) Normal [facility] Comment on above: Performed By: #### C BCDIFF #### [facility] [address] [place] [address] WBC 6.9 x(10)3/cumm Normal 3.6-10.3 [facility] Comment on above: Performed By: #### C BCDIFF #### [facility] [address] [place] [address] WBC Morph Normal [facility] Comment on above: Performed By: #### C BCDIFF #### [facility] [address] [place] [address] Frederick 02-07-2023 MARQUITA Telephone (REIBD) LATONYA RODARTE ([id number]) 1985 F Date Time Provider Department 02/07/23 MACKENZIE DURAN During your visit today, we recorded the following information about you: Allergies As of Date: 02/07/2023 Noted Allergy Reaction AMPICILLIN 10/28/2019 14 - Other: See Comments Comments: childhood allergy- hives Date Reviewed: 12/14/2022 Reviewed by: Stuart Guerrero APRN.ENGINEERING LECTURER - Fully Assessed Reason for Visit: Opened [...] as directed. For low dose HCG Pregnyl 32142 units with 5ml syringe and needle to mix and 15 insulin syringes. - [employer]-Ins Syrng-Ndl 1/2 mL 30 x 1/2 syrg 1 Container as directed. Pregnyl trigger 93681 Units #1 with syringes and needles. - [...] Encounter Status:Closed by MACKENZIE [facility]URAN [facility] (REIBD) LATONYA RODARTE ([id number]) 1985 F Date Time Provider Department 01/22/23 7:15 AM NURSE [facility] URBANO REIBD During your visit today, we [...] not stay to meet with nursing. Freda Ascherman RN Called patient with recommendation to cancel [...] 2023 1:42 PM Referring Provider: STUART GUERRERO [[id number]] Allergies As of Date: 01/22/2023 Noted Allergy Reaction AMPICILLIN 10/28/2019 14 - Other: See Comments Comments: childhood allergy- hives Date Reviewed: 12/14/2022 Reviewed by: Stuart Guerrero APRN.ENGINEERING LECTURER - Fully Assessed Reason for Visit: Infertility [285] Visit Diagnosis:Encounter for fertility testing [Z31.41] Order(s):FOLLICULAR [facility] [[id number]] Order #: [id number]: 6 PROGESTERONE BLD [SQPROG] Order #: [id number] FUTURE PROGESTERONE BLD [SQPROG] Order #: [id number]. #:[id number] Prescriptions as of 01/22/2023 - letrozole (FEMARA) [...] as directed. For low dose HCG Pregnyl 39825 units with 5ml syringe and needle to mix and 15 insulin syringes. - [employer] Syrng-Ndl 1/2 mL 30 x 1/2 syrg 1 Container as directed. Pregnyl trigger 75891 Units #1 with syringes and needles. - [...] Status:Closed by ANAHY VELARDE on 01/22/23 Normal [facility] Estradiol SerPl-mCncon 01-22 E2 [Mass/Vol] pg/mL Normal [facility] Comment on above: Order Comment: Vonda estevez Type: BLOOD SPECIMENOrdering Facility: [facility] Address: [address] [place], [place] [id number] Result Comment: This test is not suitable [...] 3243 pg/mL Second trimester : 1561 to 64957 pg/mL Third trimester : 8285 to >99184 pg/mL Post-menopausal Estradiol reference range: < 41 pg/mL Reference: 1. Estradiol - E2 (Estradiol III) [package insert V 3.0 Mauritian]. [employer], [place], [place], November 2015. Performed By: #### 2 243-4 ####[facility] [id number] [place] [address] [place] PROGESTERONE BLDon 3 Progesterone [Mass/Vol] 0.8 ng/mL See comment ng/mL [facility] Progest SerPl-mCncon 023 Progesterone [Mass/Vol] 0.8 ng/mL Normal See comment [facility] Comment on above: Order Comment: Vonda estevez Type: BLOOD SPECIMENOrdering Facility: [facility] Address: Anders [place] [id number] Result Comment: Mens trual Cycle Progesterone Reference Ranges: Follicular: <1.0 ng/mL Ovulation: <12.1 ng/mL Luteal: 1.8 to 23.9 ng/mL. Progesterone Reference Ranges vary by gestational period: First Trimester: 11.0 to 44.3 ng/mL Second Trimester: >25.3 ng/mL Third Trimester: >58.6 ng/mL Post menopausal Progesterone: <0.5 ng/mL Reference: 1. Progesterone (Progesterone III) [package insert V 1.0 Mauritian]. [employer], [place], [place]. March 2015. Performed By: #### 2 839-9 ####[facility] LABCLIA [id number] [place] [id number] [facility] CNNURSEon 01-15-2023 CNNURSE Nurse Visit (REIBD) CAYDENLATONYA Nataliya ([id number]) 1985 F Date Time Provider Department 01/15/23 7:30 AM NURSE [facility] BERAMIRO REIBD During your visit today, we recorded [...] Freda Gerard RN Referring Provider: STUART GUERRERO [[id number]] Allergies As of Date: 01/15/2023 Noted Allergy Reaction AMPICILLIN 10/28/2019 14 - Other: See Comments Comments: childhood allergy- hives Date Reviewed: 12/14/2022 Reviewed by: Stuart Guerrero APRN.ENGINEERING LECTURER - Fully Assessed Reason for Visit: Infertility [285] Visit Diagnosis:Encounter for fertility testing [Z31.41] Order(s):FOLLICULAR [facility] [[id number]] Order #: [id number]: 6 Prescriptions as of 01/15/2023 - letrozole [...] as directed. For low dose HCG Pregnyl 38686 units with 5ml syringe and needle to mix and 15 insulin syringes. - [employer]-Ins Syrng-Ndl 1/2 mL 30 x 1/2 syrg 1 Container as directed. Pregnyl trigger 97518 Units #1 with syringes and needles. - ethynodiol diacetate-ethinyl estradiol 1 mg-35 mcg (ZOVIA 35E, 28,) 1-35 mg-mcg per tablet Take 1 [...] Status:Closed by ANAHY VELARDE on 01/15/23 Normal [facility] Estradiol SerPl-ncon 01-15 E2 [Mass/Vol] pg/mL Normal [facility] Comment on above: Order Comment: Speci men Type: BLOOD SPECIMENOrdering Facility: [facility] Address: [address] [place] [phone] Result Comment: This test is not suitable [...] 3243 pg/mL Second trimester : 1561 to 39706 pg/mL Third trimester : 8285 to >67731 pg/mL Post-menopausal Estradiol reference range: < 41 pg/mL Reference: 1. Estradiol - E2 (Estradiol III) [package insert V 3.0 Mauritian]. [facility], [place], [place], November 2015. Performed By: #### 2 243-4 ####[facility] LABCLIA [id number] [place] [id number] [place] Frederick 01-12-2023 CNPN Telephone (REIBD) LATONYA RODARTE ([id number]) 1985 F Date Time Provider Department 01/12/23 SOREN SEBASTIAN During your visit today, we [...] Date Reviewed: 12/14/2022 Reviewed by: Stuart Guerrero APRN.ENGINEERING LECTURER - Fully Assessed Reason for Visit: cd [...] as directed. For low dose HCG Pregnyl 84997 units with 5ml syringe and needle to mix and 15 insulin syringes. - [employer]-Ins Syrng-Ndl 1/2 mL 30 x 1/2 syrg 1 Container as directed. Pregnyl trigger 80092 Units #1 with syringes and needles. - [...] Status:Closed by FREDA GERARD RN on 01/12/23 [facility] Frederick 12-14-2022 MARQUITA Telephone (REIBD) LATONYA RODARTE ([id number]) 1985 F Date Time Provider Department 12/14/22 SOREN SEBASTIAN REKRUNAL During your visit today, we recorded the following information about you: Ramila Dias 12/14/2022 1:00 PM Signed Pt would like her prescription sent to the [facility] in [place] ,speaking with Nurse Freda Gerard RN 12/14/2022 2:45 PM Signed Called patient to advise her we have sent letrozole to the pharmacy she requested. Patient states understanding. Freda Gerard RN December 14, 2022 2:45 PM Allergies As of Date: 12/14/2022 Noted Allergy Reaction AMPICILLIN 10/28/2019 14 - Other: See Comments Comments: childhood allergy- hives Date Reviewed: 12/14/2022 Reviewed by: Stuart Guerrero APRN.ENGINEERING LECTURER - Fully Assessed Reason for Visit: switching [...] as directed. For low dose HCG Pregnyl 26890 units with 5ml syringe and needle to mix and 15 insulin syringes. - [employer] Syrng-Ndl 1/2 mL 30 x 1/2 syrg 1 Container as directed. Pregnyl trigger 47122 Units #1 with syringes and needles. - ethynodiol diacetate-ethinyl estradiol 1 mg-35 mcg (ZOVIA 35E, 28,) 1-35 mg-mcg per tablet Take 1 [...] Encounter Status:Closed by ST[facility]ERO [facility] C[facility]N Tele[facility] (REIBD) LATONYA RODARTE ([id number]) 1985 F Date Time Provider Department 12/12/22 NURSE [facility] BERAMIRO REIBD During your visit today, we recorded the following information about you: Ginny Jackson 12/14/2022 7:44 AM Signed Estimate created. Need to call pt to collect for IVF #5 Gaye [place] 12/14/2022 8:23 AM Signed IVF #5 NOT CLEARED PT STATED NOT A GOOD TIME. SHE WILL CALL BACK Allergies As of Date: 12/12/2022 Noted Allergy Reaction AMPICILLIN 10/28/2019 14 - Other: See Comments Comments: childhood allergy- hives Date Reviewed: 10/17/2022 Reviewed by: Stuart Guerrero APRN.ENGINEERING LECTURER - Fully Assessed Reason for Visit: Patient Question [7797] Prescriptions as of 12/14/2022 - letrozole (FEMARA) [...] as directed. For low dose HCG Pregnyl 52746 units with 5ml syringe and needle to mix and 15 insulin syringes. - [employer]-Ins Syrng-Ndl 1/2 mL 30 x 1/2 syrg 1 Container as directed. Pregnyl trigger 70483 Units #1 with syringes and needles. - ethynodiol diacetate-ethinyl estradiol 1 mg-35 mcg (ZOVIA 135E, 28,) 1-35 mg-mcg per tablet Take 1 [...] Status:Closed by FREDA GERARD RN on 12/12/22 [facility]IBD[facility] LATONYA RODARTE ([id number]) 1985 F Date Time Provider Department 12/12/22 SOREN SEBASTIAN REIBCindy During your visit today, we recorded the following information about you: Ramila Dias 12/12/2022 9:32 AM Signed Pt would like to speak with Nurse Barba in regards to her cycle , please [...] Date Reviewed: 10/17/2022 Reviewed by: Stuart Guerrero APRN.ENGINEERING LECTURER - Fully Assessed Reason for Visit: Patient Question [1477] Primary Visit Diagnosis:Treatment plan provided [Z71.9] Order(s):letrozole [...] as directed. For low dose HCG Pregnyl 80934 units with 5ml syringe and needle to mix and 15 insulin syringes. - [employer]-Ins Syrng-Ndl 1/2 mL 30 x 1/2 syrg 1 Container as directed. Pregnyl trigger 94404 Units #1 with syringes and needles. - [...] Status:Closed by FREDA GERARD RN on 12/12/22 [facility] CNNURSEon 11-23-2022 CNNURSE Nurse Visit (REIBD) LATONYA RODARTE ([id number]) 1985 F Date Time Provider Department 11/23/22 7:30 AM NURSE [facility] URBANO REIBD During your visit today, we [...] 2022 3:11 PM Referring Provider: STUART GUERRERO [[id number]] Allergies As of Date: 11/23/2022 Noted Allergy Reaction AMPICILLIN 10/28/2019 14 - Other: See Comments Comments: childhood allergy- hives Date Reviewed: 10/17/2022 Reviewed by: Stuart Guerrero APRN.ENGINEERING LECTURER - Fully Assessed Reason for Visit: Infertility [285] Visit Diagnosis:Encounter for fertility testing [Z31.41] Order(s):FOLLICULAR [facility] [[id number]] Order #: [id number]: 6 PROGESTERONE BLD [SQPROG] Order #: [id number] FUTURE ESTRADIOL-17B BLD [SQE2] Order #: [id number]. #:[id number] PROGESTERONE BLD [SQPROG] Order #: [id number]. #:[id number] Prescriptions as of 01/09/2023 - letrozole (FEMARA) [...] as directed. For low dose HCG Pregnyl 56635 units with 5ml syringe and needle to mix and 15 insulin syringes. - [employer]-Ins Syrng-Ndl 1/2 mL 30 x 1/2 syrg 1 Container as directed. Pregnyl trigger 56935 Units #1 with syringes and needles. - [...] Status:Closed by WIL LUKE on 11/25/22 Normal [facility] ESTRADIOL-17B BLDon 11-24-19 E2 [Mass/Vol] 42 pg/mL [facility] Estradiol SerPl-mCncon 11-23 E2 [Mass/Vol] 42 pg/mL Normal [facility] Comment on above: Order Comment: Speci men Type: BLOOD SPECIMENOrdering Facility: [facility] Address: [place] [address] Result Comment: This test is not suitable [...] 3243 pg/mL Second trimester : 1561 to 60295 pg/mL Third trimester : 8285 to >75658 pg/mL Post-menopausal Estradiol reference range: < 41 pg/mL Reference: 1. Estradiol - E2 (Estradiol III) [package insert V 3.0 Mauritian]. [employer], [place], [place], November 2015. Performed By: #### 2 243-4, 2839-9 ####[facility] LABCLIA [id number] [place] [id number] [facility] PROGESTERONE BLDon 3 Progesterone [Mass/Vol] 3.1 ng/mL High See comment ng/mL [facility] Progest SerPl-mCncon 023 Progesterone [Mass/Vol] 3.1 ng/mL High See comment [facility] Comment on above: Order Comment: Speci men Type: BLOOD SPECIMENOrdering Facility: [facility] Address: [address] [place], [place] [id number] Result Comment: Mens trual Cycle Progesterone Reference Ranges: Follicular: <1.0 ng/mL Ovulation: <12.1 ng/mL Luteal: 1.8 to 23.9 ng/mL. Progesterone Reference Ranges vary by gestational period: First Trimester: 11.0 to 44.3 ng/mL Second Trimester: >25.3 ng/mL Third Trimester: >58.6 ng/mL Post menopausal Progesterone: <0.5 ng/mL Reference: 1. Progesterone (Progesterone III) [package insert V 1.0 Mauritian]. [employer], [place], [place]. March 2015. Performed By: #### 2 243-4, 2839-9 ####[facility] LABCLIA [id number] [place] [id number] [facility] CNNURSEon 11-22-2022 CNNURSE Nurse Visit (REIBD) LATONYA RODARTE ([id number]) 1985 F Date Time Provider Department 11/22/22 7:45 AM NURSE [facility] URBANO COHN During your visit today, we recorded [...] 2022 2:01 PM Referring Provider: STUART GUERRERO [[id number]] Allergies As of Date: 11/22/2022 Noted Allergy Reaction AMPICILLIN 10/28/2019 14 - Other: See Comments Comments: childhood allergy- hives Date Reviewed: 10/17/2022 Reviewed by: Stuart Guerrero APRN.ENGINEERING LECTURER - Fully Assessed Primary Visit Diagnosis:Female infertility [N97.9] Other Visit Diagnosis:Encounter for fertility testing [Z31.41] Order(s):FOLLICULAR US [facility] [6795034] Order #: [id number]. #:[id number] WPOINTQty: 6 ESTRADIOL-17B BLD [SQE2] Order #: [id number]. #:[id number] Prescriptions as of 11/22/2022 - letrozole (FEMARA) [...] as directed. For low dose HCG Pregnyl 16983 units with 5ml syringe and needle to mix and 15 insulin syringes. - [employer]-Ins Syrng-Ndl 1/2 mL 30 x 1/2 syrg 1 Container as directed. Pregnyl trigger 79094 Units #1 with syringes and needles. - [...] Status:Closed by WIL LUKE on 11/22/22 Normal [facility] ESTRADIOL-17B BLDon 11-23-19 E2 [Mass/Vol] 31 pg/mL [facility] Estradiol SerPl-mCncon 11-22 E2 [Mass/Vol] 31 pg/mL Normal [facility] Comment on above: Order Comment: Speci men Type: BLOOD SPECIMENOrdering Facility: [facility] Address: [address] [place], [place] [id number] Result Comment: This test is not suitable [...] 3243 pg/mL Second trimester : 1561 to 41894 pg/mL Third trimester : 8285 to >26533 pg/mL Post-menopausal Estradiol reference range: < 41 pg/mL Reference: 1. Estradiol - E2 (Estradiol III) [package insert V 3.0 Mauritian]. [employer], [place], [place], November 2015. Performed By: #### 2 243-4 ####[facility] LABCLIA [id number] [address] [place] FOLLICULAR US WHIon 11-23-19 [facility] CNPCely 11-21-2022 CNPN Telephone (REIBD) CAYDENLATONYA Nataliya ([id number]) 1985 F Date Time Provider Department 11/21/22 SOREN SEBASTIAN During your visit today, we recorded the following information about you: Felicia Azar Nikkiesonia Pss 11/21/2022 11:02 AM Signed Patient called did [...] Date Reviewed: 10/17/2022 Reviewed by: Stuart Guerrero APRN.ENGINEERING LECTURER - Fully Assessed Reason for Visit: Freda [...] as directed. For low dose HCG Pregnyl 57863 units with 5ml syringe and needle to mix and 15 insulin syringes. - [employer]-Ins Syrng-Ndl 1/2 mL 30 x 1/2 syrg 1 Container as directed. Pregnyl trigger 31234 Units #1 with syringes and needles. - [...] by FREDA GERARD RN on 11/21/22 Normal [facility] ESTRADIOL-17B [facility] 11-16-19 23 E2 [Mass/Vol] 94 pg/mL [facility] PROGESTERONE [facility] 3 Progesterone [Mass/Vol] 0.9 ng/mL See comment ng/mL [facility] ESTRADIOL-17B BLDon 09-08-19 E2 [Mass/Vol] 44 pg/mL [facility] FOLLICULAR US WHIon 09-08-19 [facility] ESTRADIOL-17B BLDon 09-05-19 E2 [Mass/Vol] 49 pg/mL [facility] FOLLICULAR US WHIon 09-05-19 [facility] FOLLICULAR US WHIon 08-30-19 [facility] FOLLICULAR US WHIon 08-11-19 [facility] Laboratory - Chemistry and C hemistry - challengeon 08-10-2022 HCG.beta subunit Qn 138.1 m[IU]/mL High <5.0 mIU/mL [facility] ESTRADIOL-17B Don 08-09-19 E2 [Mass/Vol] 294 pg/mL [facility] FOLLICULAR US WHIon 08-09-19 [facility] Laboratory - Chemistry and C hemistry - challengeon 08-09-2022 Progesterone [Mass/Vol] 0.5 ng/mL See comment ng/mL [facility] Lutropin Qn 13.7 m[IU]/mL See comment mIU/mL [facility] ESTRADIOL-17B BLDon 08-08-19 E2 [Mass/Vol] 290 pg/mL [facility] FOLLICULAR US WHIon 08-08-19 [facility] LUTEINIZING HORMONEon 2022 Lutropin Qn 13.4 m[IU]/mL See comment mIU/mL [facility] PROGESTERONE Don Progesterone [Mass/Vol] 0.5 ng/mL See comment ng/mL [facility] ESTRADIOL-17B BLDon 08-07-19 E2 [Mass/Vol] 218 pg/mL [facility] FOLLICULAR US WHIon 08-07-19 [facility] Laboratory - Chemistry and C hemistry - challengeon 08-07-2022 Progesterone [Mass/Vol] 0.5 ng/mL See comment ng/mL [facility] Lutropin Qn 13.4 m[IU]/mL See comment mIU/mL [facility] FOLLICULAR US WHIon 08-03-19 [facility] Laboratory - Chemistry and C hemistry - challengeon 08-03-2022 Progesterone [Mass/Vol] 0.5 ng/mL See comment ng/mL [facility] Lutropin Qn 39.2 m[IU]/mL See comment mIU/mL [facility] E2 [Mass/Vol] 50 pg/mL [facility] ESTRADIOL-17B Don 08-02-19 23 E2 [Mass/Vol] 31 pg/mL [facility] FOLLICULAR US WHIon 08-02-19 23 [facility] LUTEINIZING HORMONEon 2022 Lutropin Qn 43.2 m[IU]/mL See comment mIU/mL [facility] PROGESTERONE Don Progesterone [Mass/Vol] 0.7 ng/mL See comment ng/mL [facility] ESTRADIOL-17B Don 07-25-19 23 E2 [Mass/Vol] [facility] FOLLICULAR US WHIon 07-25-19 [facility] ESTRADIOL-17B Don 07-06-19 E2 [Mass/Vol] 92 pg/mL [facility] FOLLICULAR US Ion 07-06-19 [facility] CONSULT PROGon 06-05-2022 CONSULT PROG HNO ID: [id number] Author: Soren Sebastian MD Service: ? Author Type: Physician Type: Consult Progress Note Filed: 06/05/2022 1:14 PM Note Text: VIRTUAL VISIT PROGRESS NOTE This is a virtual visit using [employer] video visit. It required patient-provider interaction for [...] after surgery Discussed to outcome of our PER DIEM/VERENICE portion of the surgery: 1 tube excised. [...] after surgery Discussed to outcome of our PER DIEM/VERENICE portion of the surgery: 1 tube excised. [...] after surgery *Discussed to outcome of our PER DIEM/VERENICE portion of the surgery: 1 tube excised. [...] adhesions OPK (Ovulation Predictor Kit) Normal Ovarian Erwin Not done Saline Ultrasound Not done Semen [...] BOWEL RESECTION (more content not included)... Normal [facility] ESTRADIOL-17B [facility] 05-01-20 22 E2 [Mass/Vol] 34 pg/mL [facility] FOLLICULAR US [facility] 05-01-20 22 [facility] ESTRADIOL-17B [facility] 04-24-20 22 E2 [Mass/Vol] 60 pg/mL [facility] FOLLICULAR US [facility] 04-24-20 [facility] Hematocrit Auto (Bld) [Volum e fraction]on 04-24-2022 Hematocrit (Bld) [Volume fraction] 39.9 % 36.0 - 46.0 % [facility] ESTRADIOL-17B [facility] 02-25-20 22 E2 [Mass/Vol] 1451 pg/mL [facility] PROGESTERONE [facility] 2 Progesterone [Mass/Vol] 0.7 ng/mL See comment ng/mL [facility] ESTRADIOL-17B [facility] 02-23-20 22 E2 [Mass/Vol] 182 pg/mL [facility] FOLLICULAR US Ion 02-23-20 22 [facility] PROGESTERONE [facility] 2 Progesterone [Mass/Vol] 0.6 ng/mL See comment ng/mL [facility] ESTRADIOL-17B [facility] 01-27-20 22 E2 [Mass/Vol] 107 pg/mL [facility] PROGESTERONE [facility] 2 Progesterone [Mass/Vol] 3.1 ng/mL High See comment ng/mL [facility] HCG QUAL UR B/Oon 12-21-2021 status Negative neg - pos [facility] Quality Check Yes [facility] Laboratory - Chemistry and C hemistry - challengeon 10-09-2021 HCG.beta subunit Qn 171.5 m[IU]/mL High <5.0 mIU/mL [facility] Lutropin Qn m[IU]/mL See comment mIU/mL [facility] Progesterone [Mass/Vol] 1.6 ng/mL See comment ng/mL [facility] ESTRADIOL-17B Don 10-07-19 22 E2 [Mass/Vol] 497 pg/mL [facility] Laboratory - Chemistry and C hemistry - challengeon 10-06-2021 Progesterone [Mass/Vol] 0.6 ng/mL See comment ng/mL [facility] ESTRADIOL-17B BLDon 10-06-19 22 E2 [Mass/Vol] 398 pg/mL [facility] PROGESTERONE [facility] Progesterone [Mass/Vol] 0.5 ng/mL See comment ng/mL [facility] ESTRADIOL-17B Don 10-03-19 22 E2 [Mass/Vol] 192 pg/mL [facility] ESTRADIOL-17B Don 09-27-19 22 E2 [Mass/Vol] 73 pg/mL [facility] CT UROGRAM WO/W IVCONon 04-3 CT UROGRAM WO/W IVCON * * *Final Report* * * DATE OF EXAM: Oct 16 2019 10:07AM [facility] 0560 - CT UROGRAM WO/W IVCON [...] and absence of the coccyx presumably congenital. Poultry Inseminator: NATACHA Transcribe Date/Time: Oct 16 2019 10:10A Dictated by : MULUGETA SHEPARD MD This examination was interpreted and the report reviewed and electronically signed by: MULUGETA SHEPARD MD on Oct 16 2019 10:22AM EST Normal [facility] Vital Signs Date Time Vital Sign Value Performing Clinician Facility 02-19-2025 09:08-0400 Body height 162.[address] Imani Helm DO Work Phone: [facility] 02-19-2025 09:08-0400 Body mass index (BMI) [Ratio] 30.4 kg/m2 Dr. Imani Helm DO Work Phone: [facility] 02-19-2025 09:08-0400 Body weight 80.[address] Imani Helm DO Work Phone: [facility] 02-19-2025 09:08-0400 Diastolic blood pressure 77 mm[Hg] Dr. Imani Helm DO Work Phone: [facility] 02-19-2025 09:08-0400 Systolic blood pressure 135 mm[Hg] Dr. Imani Helm DO Work Phone: [facility] 02-09-2025 13:22-0400 Body height 163.4 cm Lyn Arguelles MD Work Phone: [facility] 02-09-2025 13:22-0400 Body mass index (BMI) [Ratio] 30.21 kg/m2 Lyn Arguelles MD Work Phone: [facility] 02-09-2025 13:22-0400 Body temperature 98.2 [degF] Lyn Arguelles MD Work Phone: [facility] 02-09-2025 13:22-0400 Body weight 80.65 kg Lyn Arguelles MD Work Phone: [facility] 02-09-2025 13:22-0400 Diastolic blood pressure 79 mm[Hg] Lyn Arguelles MD Work Phone: [facility] 08-25-2025 13:22-0400 Heart rate 79 /min Lyn Arguelles MD Work Phone: [facility] 02-09-2025 13:22-0400 Respiratory rate 16 /min Lyn Arguelles MD Work Phone: [facility] 02-09-2025 13:22-0400 SaO2% (BldA) [Mass fraction] 97 % Lyn Arguelles MD Work Phone: [facility] 02-09-2025 13:22-0400 Systolic blood pressure 120 mm[Hg] Lyn Arguelles MD Work Phone: [facility] 01-20-2025 15:41-0400 Body height 162.[address] Imani Helm DO Work Phone: [facility] 01-20-2025 15:40-0400 Body mass index (BMI) [Ratio] 30.4 kg/m2 Dr. Imani Helm DO Work Phone: [facility] 01-20-2025 15:40-0400 Body weight 80.[address] Imani Helm DO Work Phone: [facility] 01-20-2025 15:40-0400 Diastolic blood pressure 68 mm[Hg] Dr. Imani Heml DO Work Phone: [facility] 01-20-2025 15:40-0400 Systolic blood pressure 113 mm[Hg] Dr. Imani Helm DO Work Phone: [facility] 12-30-2024 12:00-0400 Body weight 78.0192 kg RAQUEL LAINEZ [facility] Comment on above: Performed By: #### AFPNTP #### [facility] (DEFAULT) [address] [place] [id number] 12-30-2024 10:17-0400 Body height 162.6 cm Raquel Lainez MD Work Phone: [facility] 12-30-2024 10:17-0400 Body mass index (BMI) [Ratio] 29.52 kg/m2 Raquel Lainez MD Work Phone: [facility] 12-30-2024 10:17-0400 Body weight 78.02 kg Raquel Lainez MD Work Phone: [facility] 12-30-2024 10:17-0400 Diastolic blood pressure 64 mm[Hg] Raquel Lainez MD Work Phone: [facility] 12-30-2024 10:17-0400 Systolic blood pressure 114 mm[Hg] Raquel Lainez MD Work Phone: [facility] 12-30-2024 07:56-0400 Body height 162.6 cm [facility] Ultrasound [address] 12-30-2024 07:56-0400 Body mass index (BMI) [Ratio] 29.78 kg/m2 [facility]trasound [address] 12-30-2024 07:56-0400 Body weight 78.7 kg [facility] Ultrasound [address] 12-24-2024 11:50-0400 Body height 162.[address] Imani Helm DO Work Phone: [facility] 12-24-2024 11:50-0400 Body mass index (BMI) [Ratio] 29.3 kg/m2 Dr. Imani Helm DO Work Phone: [facility] 12-24-2024 11:50-0400 Body weight 77.[address] Imani Helm DO Work Phone: [facility] 12-24-2024 11:50-0400 Diastolic blood pressure 73 mm[Hg] Dr. Imani Helm DO Work Phone: [facility] 12-24-2024 11:50-0400 Systolic blood pressure 123 mm[Hg] Dr. Imani Helm DO Work Phone: [facility] 11-26-2024 14:39-0400 Body height 162.[address] Imani Helm DO Work Phone: [facility] 11-26-2024 14:39-0400 Body mass index (BMI) [Ratio] 29.5 kg/m2 Dr. Imani Helm DO Work Phone: [facility] 11-26-2024 14:39-0400 Body weight 78.[address] Imani Helm DO Work Phone: [facility] 11-26-2024 14:39-0400 Diastolic blood pressure 73 mm[Hg] Dr. Imani Helm DO Work Phone: [facility] 11-26-2024 14:39-0400 Systolic blood pressure 109 mm[Hg] Dr. Imani Helm DO Work Phone: [facility] 11-18-2024 14:11-0400 Body height 162.[address] Imani Helm DO Work Phone: [facility] 11-18-2024 14:11-0400 Body mass index (BMI) [Ratio] 29.3 kg/m2 Dr. Imani Helm DO Work Phone: [facility] 11-18-2024 14:11-0400 Body weight 77.[address] Imani Helm DO Work Phone: [facility] 11-18-2024 14:11-0400 Diastolic blood pressure 75 mm[Hg] Dr. Imani Helm DO Work Phone: [facility] 11-18-2024 14:11-0400 Systolic blood pressure 126 mm[Hg] Dr. Imani Helm DO Work Phone: [facility] 11-13-2024 08:10-0400 Body height 162.[address] Imani Helm DO Work Phone: [facility] 11-13-2024 08:10-0400 Body mass index (BMI) [Ratio] 28.7 kg/m2 Dr. Imani Helm DO Work Phone: [facility] 11-13-2024 08:10-0400 Body weight 75.[address] Imani Helm DO Work Phone: [facility] 11-13-2024 08:10-0400 Diastolic blood pressure 64 mm[Hg] Dr. Imani Helm DO Work Phone: [facility] 11-13-2024 08:10-0400 Systolic blood pressure 109 mm[Hg] Dr. Imani Helm DO Work Phone: [facility] 11-06-2024 14:14-0400 Body height 162.[address] Imani Helm DO Work Phone: [facility] 11-06-2024 14:08-0400 Body mass index (BMI) [Ratio] 29.5 kg/m2 Dr. Imani Helm DO Work Phone: [facility] 11-06-2024 14:08-0400 Body weight 78.[address] Imani Helm DO Work Phone: [facility] 11-06-2024 14:08-0400 Diastolic blood pressure 70 mm[Hg] Dr. Imani Helm DO Work Phone: [facility] 11-06-2024 14:08-0400 Systolic blood pressure 102 mm[Hg] Dr. Imani Helm DO Work Phone: [facility] 10-30-2024 09:10-0400 Body height 162.[address] Imani Helm DO Work Phone: [facility] 10-30-2024 09:05-0400 Body mass index (BMI) [Ratio] 28.3 kg/m2 Dr. Imani Helm DO Work Phone: [facility] 10-30-2024 09:05-0400 Body weight 74.[address] Imani Helm DO Work Phone: [facility] 10-30-2024 09:05-0400 Diastolic blood pressure 70 mm[Hg] Dr. Imani Helm DO Work Phone: [facility] 10-30-2024 09:05-0400 Systolic blood pressure 116 mm[Hg] Dr. Imani Helm DO Work Phone: [facility] 10-24-2024 11:42-0400 Body height 162.[address] Imani Helm DO Work Phone: [facility] 10-24-2024 11:39-0400 Body mass index (BMI) [Ratio] 28.5 kg/m2 Dr. Imani Helm DO Work Phone: [facility] 10-24-2024 11:39-0400 Body weight 75.[address] Imani Helm DO Work Phone: [facility] 10-24-2024 11:39-0400 Diastolic blood pressure 65 mm[Hg] Dr. Imani Helm DO Work Phone: [facility] 10-24-2024 11:39-0400 Systolic blood pressure 111 mm[Hg] Dr. Imani Helm DO Work Phone: [facility] 10-14-2024 10:25-0400 Body mass index (BMI) [Ratio] 28 kg/m2 Dr. Imani Helm DO Work Phone: [facility] 10-14-2024 10:25-0400 Body weight 74.[address] Imani Helm DO Work Phone: [facility] 10-14-2024 10:25-0400 Diastolic blood pressure 71 mm[Hg] Dr. Imani Helm DO Work Phone: [facility] 10-14-2024 10:25-0400 Systolic blood pressure 106 mm[Hg] Dr. Imani Helm DO Work Phone: [facility] 10-09-2024 09:43-0400 Body height 162.6 cm Lis Gasior DO Work Phone: [facility] 10-09-2024 09:43-0400 Body mass index (BMI) [Ratio] 28.23 kg/m2 Lis Gasior DO Work Phone: [facility] 10-09-2024 09:43-0400 Body weight 74.6 kg Lis Gasior DO Work Phone: [facility] Comment on above: with shoes 10-09-2024 09:43-0400 Diastolic blood pressure 54 mm[Hg] Lis Gasior DO Work Phone: [facility] 10-09-2024 09:43-0400 Heart rate 81 /min Lis Gasior DO Work Phone: [facility] 10-09-2024 09:43-0400 Systolic blood pressure 113 mm[Hg] Lis Gasior DO Work Phone: [facility] 04-10-2024 09:40-0400 Body height 165.9 cm Andres Fitzgerald APN Work Phone: [facility] 04-10-2024 09:40-0400 Body mass index (BMI) [Ratio] 27.4 kg/m2 Andres Fitzgerald APN Work Phone: [facility] 04-10-2024 09:40-0400 Body weight 75.4 kg Andres Fitzgerald APN Work Phone: [facility] 04-10-2024 09:40-0400 Diastolic blood pressure 68 mm[Hg] Andres Fitzgerald APN Work Phone: [facility] 04-10-2024 09:40-0400 Heart rate 71 /min Andres Fitzgerald APN Work Phone: [facility] 04-10-2024 09:40-0400 Systolic blood pressure 112 mm[Hg] Andres Fitzgerald APN Work Phone: [facility] 11-15-2022 08:19-0400 Body height 162.6 cm Nurse Beac Work Phone: [facility] 11-15-2022 08:19-0400 Body weight 74.2 kg Nurse Beac Work Phone: [facility] 11-15-2022 08:19-0400 Diastolic blood pressure 58 mm[Hg] Nurse Beac Work Phone: [facility] 11-15-2022 08:19-0400 Heart rate 77 /min Nurse Beac Work Phone: [facility] 11-15-2022 08:19-0400 SaO2% (BldA) [Mass fraction] 99 % Nurse Beac Work Phone: [facility] 11-15-2022 08:19-0400 Systolic blood pressure 115 mm[Hg] Nurse Beac Work Phone: [facility] 08-29-2022 07:15-0400 Body height 162.6 cm Nurse Beac Work Phone: [facility] 08-29-2022 07:15-0400 Body weight 74.3 kg Nurse Beac Work Phone: [facility] 08-29-2022 07:15-0400 Diastolic blood pressure 60 mm[Hg] Nurse Beac Work Phone: [facility] 08-29-2022 07:15-0400 Heart rate 78 /min Nurse Beac Work Phone: [facility] 08-29-2022 07:15-0400 SaO2% (BldA) [Mass fraction] 98 % Nurse Beac Work Phone: [facility] 08-29-2022 07:15-0400 Systolic blood pressure 105 mm[Hg] Nurse Beac Work Phone: [facility] 07-06-2022 07:21-0500 Body height 162.6 cm Nurse Beac Work Phone: [facility] 07-06-2022 07:21-0500 Body weight 73.8 kg Nurse Beac Work Phone: [facility] 07-06-2022 07:21-0500 Diastolic blood pressure 61 mm[Hg] Nurse Beac Work Phone: [facility] 07-06-2022 07:21-0500 Heart rate 102 /min Nurse Beac Work Phone: [facility] 07-06-2022 07:21-0500 SaO2% (BldA) [Mass fraction] 98 % Nurse Beac Work Phone: [facility] 07-06-2022 07:21-0500 Systolic blood pressure 97 mm[Hg] Nurse Beac Work Phone: [facility] 04-24-2022 07:41-0500 Body height 162.6 cm Nurse Beac Work Phone: [facility] 04-24-2022 07:41-0500 Body temperature 98.1 [degF] Nurse Beac Work Phone: [facility] 04-24-2022 07:41-0500 Body weight 71.22 kg Nurse Beac Work Phone: [facility] 04-24-2022 07:41-0500 Diastolic blood pressure 60 mm[Hg] Nurse Beac Work Phone: [facility] 04-24-2022 07:41-0500 Heart rate 80 /min Nurse Beac Work Phone: [facility] 04-24-2022 07:41-0500 SaO2% (BldA) [Mass fraction] 98 % Nurse Beac Work Phone: [facility] 04-24-2022 07:41-0500 Systolic blood pressure 98 mm[Hg] Nurse Beac Work Phone: [facility] 12-21-2021 11:23-0400 Body height 162.6 cm Wil Luke MD Work Phone: [facility] 12-21-2021 11:23-0400 Body weight 69.85 kg Wil Luke MD Work Phone: [facility] Encounters Encounter Date Encounter Type Care Provider Facility Start: 02-25-2025 ambulatory Iman Louise cility:[facility] Start: 02-19-2025 End: 02-19-[address] Kaila Paige MD -[facility] Work Phone: Start: 02-19-2025 End: 02-19-[address] Imani Helm DO Work Phone: [facility] Start: 02-09-2025 End: 02-09-2025 ambulatory RAQUEL LAINEZ [facility] Start: 02-09-2025 End: 02-09-2025 Patient encounter procedure Lyn Arguelles MD [facility] Phone[facility] Comment on above: New Patient Evaluati on Start: 02-04-2025 End: 02-04-2025 Orders Only Raquel Lainez MD Work Phone: [facility] Start: 01-22-2025 End: 01-22-2025 Follow-up encounter [facility] Ultrasound [place] [address] [facility] Comment on above: Encounter for follow -up ultrasound of anatomy (Primary Dx); Encounter for ultrasound to assess interval growth of fetus; 22 weeks gestation of ; AMA (advanced maternal age) multigravida 35+, second trimester Start: 01-22-2025 ambulatory RAQUEL LAINEZ Facility: [facility] Start: 01-20-2025 End: 01-20-[address] Iman Jolley DO -[facility] Work Phone: Start: 01-20-2025 End: 01-20-[address] Imani Helm DO Work Phone: [facility] Start: 12-30-2024 End: 12-30-2024 Subsequent care visit Raquel Lainez MD Work Phone: [facility] [place] Comment on above: Tethered cord (Prima ry Dx); Uterus didelphys; Recurrent UTI; Cloacal malformation Start: 12-30-2024 ambulatory SELF SELF Facility:[facility] Start: 12-30-2024 End: 12-30-2024 Follow-up encounter Birgit Wood MD Work Phone: [facility] Comment on above: Encounter for anatomic survey (Primary Dx); Advanced maternal age, 1st , first trimester; Encounter for screening for risk of pre-term labor; 18 weeks gestation of ; AMA (advanced maternal age) multigravida 35+, second trimester; Encounter for ultrasound to assess interval growth of fetus; Encounter for follow-up ultrasound of anatomy Start: 12-30-2024 End: 12-30-2024 Patient encounter procedure [facility] Ultrasound [place] [id number] [facility] Start: 12-30-2024 ambulatory RAQUEL LAINEZ Facility: [facility] Start: 12-24-2024 End: 12-24-[address] Iman Jolley DO -[facility] Work Phone: Start: 12-24-2024 End: 12-24-[address] Imani Helm DO Work Phone: -[facility] Start: 12-03-2024 End: 12-03-[address] Imani Helm DO Work Phone: [facility] Work Phone: Start: 12-03-2024 End: 12-03-[address] Kaila Paige MD -[facility] Start: 12-03-2024 End: 12-03-2024 ambulatory Imani Helm Facility:[facility] Start: 11-26-2024 End: 11-26-[address] Iman Jolley DO -[facility] Work Phone: Start: 11-26-2024 End: 11-26-[address] Imani Helm DO Work Phone: [facility] Work Phone: Start: 11-21-2024 End: 11-21-2024 ambulatory IMANI HELM [facility] Start: 11-18-2024 End: 11-18-2024 Patient encounter procedure Jesse KING -[facility] Work Phone: Start: 11-18-2024 End: 11-18-[address] Imani Helm DO Work Phone: [facility] Work Phone: Start: 11-18-2024 End: 11-18-2024 ambulatory Imani Helm Facility:[facility] Start: 11-13-2024 End: 11-13-[address] Kaila Paige MD -[facility] Work Phone: Start: 11-13-2024 End: 11-13-[address] Imani Helm DO Work Phone: [facility] Work Phone: Start: 11-06-2024 End: 11-06-[address] Kaila Paige MD -[facility] Work Phone: Start: 11-06-2024 End: 11-06-[address] Imani Helm DO Work Phone: [facility] Work Phone: Start: 11-06-2024 End: 11-06-2024 ambulatory Imani Helm Facility:[facility] Start: 10-30-2024 End: 10-30-[address] Kaila Paige MD -[facility] Work Phone: Start: 10-30-2024 End: 10-30-[address] Imani Helm DO Work Phone: [facility] Work Phone: Start: 10-30-2024 End: 10-30-2024 [facility] Start: 10-24-2024 End: 10-24-[address] Imani Helm DO Work Phone: [facility] Work Phone: Start: 10-24-2024 End: 10-24-[address] Kaila Paige MD -[facility] Work Phone: Start: 10-24-2024 End: 10-24-[address] Iman Jolley DO -[facility] Work Phone: Start: 10-24-2024 End: 10-24-2024 ambulatory [facility] [place] [place] Start: 10-24-2024 End: 10-24-2024 ambulatory [facility] Facility:[facility] Start: 10-14-2024 End: 10-14-[address] Kaila Paige MD -[facility] Work Phone: Start: 10-14-2024 End: 10-14-2024 [facility] [place] Start: 10-09-2024 End: 10-09-2024 Initial nursing facility care/day 35 minutes Lisabby Wilson DO Work Phone: [facility] Comment on above: Anorectal Malformati on Start: 10-09-2024 End: 10-09-2024 ambulatory [facility] Start: 10-09-2024 End: 10-09-2024 Subsequent hospital visit by physician Ir1 [facility] Comment on above: Anorectal malformati on; Other constipation; History of antegrade continence enema procedure Anorectal malformati on Start: 04-13-2024 Orders Only Lazara Brice RN [facility] Comment on above: DME Prescription Start: 04-10-2024 End: 04-10-2024 Subsequent hospital visit by physician Ir1 [facility] Comment on above: Anorectal malformati on Start: 04-10-2024 End: 04-10-2024 ambulatory CHAITANYA AKINS [facility] Start: 04-10-2024 End: 04-10-2024 Office outpatient visit 25 minutes Andres Fitzgerald APN Work Phone: [facility] Comment on above: Anorectal Malformati on Start: 04-10-2024 End: 04-10-2024 ambulatory CHAITANYA AKINS [facility] Start: 04-10-2024 End: 04-10-2024 Subsequent hospital visit by physician Xr2 [facility] Comment on above: Anorectal malformati on Start: 04-09-2024 Telephone encounter Marixa Hernandez Work Phone: [facility] Comment on above: Insurance Issue Start: 04-08-2024 Orders Only Chaitanya reilly RODRI Work Phone: [facility] Comment on above: General Inquiry Start: 10-31-2023 Encounter for other preprocedural examination EDINSON NEVES ENGINEERING LECTURER~[id number] [facility] Start: 10-31-2023 End: 10-31-2023 ambulatory ISRRAEL ADLER MD~[id number] [facility] Start: 10-30-2023 End: 10-31-2023 ambulatory EDINSON NEVES ENGINEERING LECTURER~[id number] [facility] Start: 02-07-2023 ambulatory Mackenzie Duran MD Work Phone: [facility] Comment on above: VERENICE Patient Care Con ference Start: 02-07-2023 Telephone encounter Mackenzie Duran MD Work Phone: [facility] Comment on above: Opened in Error Start: 01-22-2023 End: 01-22-2023 ambulatory IMANI HELM Facility:[facility] Start: 01-22-2023 End: 01-22-2023 Nursing evaluation of patient and report Nurse Verenice [facility] Work Phone: [facility] Comment on above: Encounter for fertil ity testing Start: 01-15-2023 End: 01-15-2023 ambulatory IMANI HELM Facility:[facility] Start: 01-15-2023 End: 01-15-2023 Nursing evaluation of patient and report Nurse Verenice [facility] Work Phone: [facility] Comment on above: Encounter for fertil ity testing Start: 01-12-2023 Telephone encounter Soren Sebastian MD Work Phone: [facility] Comment on above: cd 1 Start: 12-14-2022 Telephone encounter Soren Sebastian MD Work Phone: [facility] Comment on above: switching pharamacy Start: 12-12-2022 Telephone encounter Soren Sebastian MD Work Phone: [facility] Comment on above: Patient Question Start: 11-23-2022 End: 11-23-2022 ambulatory STUART GUERRERO Facility:[facility] Start: 11-23-2022 End: 11-23-2022 Nursing evaluation of patient and report Nurse Verenice [facility] Work Phone: [facility] Comment on above: Encounter for fertil ity testing Start: 11-22-2022 End: 11-22-2022 ambulatory [facility] Facility:[facility] Start: 11-22-2022 End: 11-22-2022 Nursing evaluation of patient and report Nurse Verenice [facility] Work Phone: [facility] Comment on above: Female infertility ( Primary Dx); Encounter for fertility testing Start: 11-21-2022 Telephone encounter Soren Sebastian MD Work Phone: [facility] Comment on above: Freda re appt tomorr ow Start: 11-16-2022 End: 11-16-2022 ambulatory Nurse Verenice [facility] Work Phone: [facility] Comment on above: Female infertility ( Primary Dx) Start: 11-16-2022 End: 11-16-2022 Telemedicine consultation with patient Nurse Verenice c [facility] Work Phone: [facility] Start: 11-15-2022 End: 11-15-2022 Nursing evaluation of patient and report Nurse Verenice c [facility] Work Phone: [facility] Comment [...] evaluation of patient and report Nurse Verenice c [facility] Work Phone: [facility] Comment on above: Female infertility Start: 09-04-2022 End: 09-04-2022 Nursing evaluation of patient and report Nurse Verenice [facility] Work Phone: [facility] Comment on above: Female infertility Start: 08-29-2022 End: 08-29-2022 Nursing evaluation of patient and report Nurse Verenice [facility] Work Phone: [facility] Comment on above: Female infertility Start: 08-28-2022 Telephone encounter Soren Sebastian MD Work Phone: [facility] Comment on above: re medication/was it called in ; SEt up baseline for tomorrow at [place] (prefers between 7 and 8 am) Start: 08-25-2022 Telephone encounter Soren Sebastian MD Work Phone: [facility] Comment on above: Next Steps Start: 08-22-2022 Telephone encounter Soren Sebastian MD Work Phone: [facility] Comment on above: order injections Start: 08-17-2022 End: 08-17-2022 Patient encounter procedure Andrology Kaiawhina Kohanga Reo Work Phone: [facility] Comment on above: Female infertility ( Primary Dx) Start: 08-17-2022 Telephone encounter [facility] Comment on above: Patient Update Start: 08-15-2022 Telephone encounter Sasha Stoddard [facility] Comment on above: Patient Update Start: 08-13-2022 ambulatory Danelle Wheat PhD Work Phone: [facility] Comment on above: update Start: 08-13-2022 E-mail encounter fro m caregiver Danelle Wheat PhD Work Phone: [facility] [employer] Start: 08-12-2022 ambulatory Danelle Wheat PhD Work Phone: [facility] Comment on above: fertilization result s Start: 08-12-2022 E-mail encounter fro m caregiver Danelle Wheat PhD Work Phone: [facility] [employer] Start: 08-11-2022 End: 08-11-2022 Patient encounter procedure Wil Luke MD Work Phone: [facility] Comment on above: Female infertility ( Primary [...] m caregiver Ysabel Scott MD Work Phone: [facility] [employer] Start: 08-09-2022 End: 08-09-2022 Nursing evaluation of patient and report Nurse Verenice [facility] Work Phone: [facility] Comment on above: Female infertility Start: 08-08-2022 End: 08-08-2022 Nursing evaluation of patient and report Nurse Verenice [facility] Work Phone: [facility] Comment on above: Female infertility Start: 08-07-2022 End: 08-07-2022 Orders Only Aiyana Harman APRN.CNP Work Phone: [facility] Comment on above: Female infertility ( Primary Dx) Female infertility Start: 08-03-2022 Telephone encounter Soren Sebastian MD Work Phone: [facility] Comment on above: monitoring Start: 08-03-2022 End: 08-03-2022 Nursing evaluation of patient and report Nurse Verenice [facility] Work Phone: [facility] Comment on above: Female infertility Start: 08-02-2022 End: 08-02-2022 Nursing evaluation of patient and report Nurse Verenice [facility] Work Phone: [facility] Comment on above: Female infertility Start: 07-25-2022 End: 07-25-2022 Nursing evaluation of patient and report Nurse Verenice [facility] Work Phone: [facility] Comment on above: Female infertility Start: 07-24-2022 Telephone encounter Soren Sebastian MD Work Phone: [facility] Comment on above: Patient Update Start: 07-06-2022 End: 07-06-2022 Nursing evaluation of patient and report Nurse Verenice [facility] Work Phone: [facility] Comment [...] Start: 06-05-2022 End: 06-05-2022 ambulatory SOREN SEBASTIAN Facility:[place] [facility] Start: 06-05-2022 End: 06-05-2022 Manual pelvic examination Soren Sebastian MD Work Phone: [facility] Comment on above: Diminished ovarian r eserve due to low antral follicle (Primary Dx); Encounter for fertility planning; Female pelvic peritoneal adhesions Start: 06-05-2022 End: 06-05-2022 Telemedicine consultation with patient Soren Sebastian MD Work Phone: [facility] Start: 05-08-2022 Telephone encounter Soren Sebastian MD Work Phone: [facility] Comment on above: Patient Question Start: 05-02-2022 Telephone encounter Soren Sebastian MD Work Phone: [facility] Comment on above: Freda; Freda bleedin g a lot this am/stopped inj Start: 05-01-2022 End: 05-01-2022 Nursing evaluation of patient and report Nurse Verenice [facility] Work Phone: [facility] Comment on above: Female infertility ( Primary Dx); Encounter for fertility testing Start: 04-24-2022 End: 04-24-2022 Nursing evaluation of patient and report Nurse Verenice [facility] Work Phone: [facility] Comment on above: Female infertility ( Primary Dx); Encounter for fertility testing Start: 04-21-2022 Telephone encounter Soren Sebastian MD Work Phone: [facility] Comment on above: Freda A / Lmp today please call pt; Called Back (Started period today, baselines Sunday?) Start: 04-11-2022 Telephone encounter Soren Sebastian MD Work Phone: [facility] Comment on above: Patient Update Start: 04-10-2022 Telephone encounter Soren Sebastian MD Work Phone: [facility] Comment on above: ques on meds Start: 03-14-2022 Telephone encounter Soren Sebastian MD Work Phone: [facility] Comment on above: Freda/forgot estroge n this morning Start: 03-02-2022 End: 03-10-2022 Patient encounter procedure Andrology Kaiawhina Kohanga Reo Work Phone: [facility] Comment on above: Primary female infer tility (Primary Dx) examinatio n or test, unconfirmed (Primary Dx); Infertility, female Start: 02-24-2022 End: 02-24-2022 Nursing evaluation of patient and report Nurse Verenice [facility] Work Phone: [facility] Comment on above: Female infertility ( Primary Dx) Start: 02-22-2022 End: 02-22-2022 Nursing evaluation of patient and report Nurse Verenice [facility] Work Phone: [facility] Comment [...] evaluation of patient and report Nurse Verenice [facility] Work Phone: [facility] Comment on above: Primary female infer tility Start: 12-26-2021 Telephone encounter Soren Sebastian MD Work Phone: [facility] Comment on above: FET med orders Start: 12-21-2021 End: 12-21-2021 Patient encounter procedure Wil Luke MD Work Phone: [facility] Comment on above: Fertility testing (P rimary Dx); Pre-procedural laboratory examination Start: 12-21-2021 End: 12-21-2021 Patient encounter status Wil Luke MD Work Phone: [facility] Start: 12-20-2021 Telephone encounter Soren Sebastian MD Work Phone: [facility] Comment on above: Rose Marie re sis/hystero scopy tomorrow Start: 11-30-2021 Telephone encounter Soren Ramirez nazario Sebastian MD Work Phone: [facility] Comment on above: freda Start: 10-16-2021 End: 10-16-2021 Patient encounter procedure Andrology Kaiawhina Kohanga Reo Work Phone: [facility] Comment on above: Female infertility ( Primary Dx) Start: 10-10-2021 End: 10-10-2021 Patient encounter procedure Kieran Palafox MD Work Phone: [facility] Comment on above: Female infertility ( Primary Dx) Start: 10-09-2021 End: 10-09-2021 Nursing evaluation of patient and report Nurse Verenice [facility] Work Phone: [facility] Comment on above: Encounter for fertil ity testing Start: 10-08-2021 End: 10-08-2021 Nursing evaluation of patient and report Nurse Verenice [facility] Work Phone: [facility] Comment on above: Encounter for fertil ity testing (Primary Dx) Start: 10-07-2021 Orders Only Aiyana A Yozipo vich POLYGRAPH TECHNICIAN.ENGINEERING LECTURER Work Phone: [facility] Comment on above: Female infertility ( Primary Dx) [place] - needs meds f or tonight and this wknd Start: 10-06-2021 End: 10-06-2021 Orders Only Aiyana A Yozipovich POLYGRAPH TECHNICIAN.ENGINEERING LECTURER Work Phone: [facility] Comment on above: Female infertility ( Primary Dx) Female infertility Start: 10-05-2021 End: 10-05-2021 Nursing evaluation of patient and report Nurse Verenice [facility] Work Phone: [facility] Comment on above: Female infertility Start: 10-02-2021 End: 10-02-2021 Nursing evaluation of patient and report Nurse Verenice [facility] Work Phone: [facility] Comment on above: Female infertility Start: 09-28-2021 End: 09-28-2021 Nursing evaluation of patient and report Nurse Verenice [facility] Work Phone: [facility] Comment on above: Female infertility ( Primary Dx) Start: 09-26-2021 End: 09-26-2021 Nursing evaluation of patient and report Nurse Verenice [facility] Work Phone: [facility] Comment on above: Female infertility ( Primary Dx) Start: 09-22-2021 Orders Only Aiyana anderson POLYGRAPH TECHNICIAN.ENGINEERING LECTURER Work Phone: [facility] Comment on above: Female infertility ( Primary Dx) Xochitl/re self pay u s and nurse visit Start: 12-22-2020 End: 03-16-2021 ambulatory [facility] Start: 12-01-2020 ambulatory Facility:[facility] Procedures Date Procedure Procedure Detail Performing Clinician Start: 02-09-2025 Echo cardiovas c w/wo m-mode recording Raquel Lainez MD Work Phone: Start: 01-22-2025 Us preg uterus real time f/u trnsabdl per fetus Birgit Wood MD Work Phone: Start: 12-30-2024 Us preg uterus w/det ail zoran 1st gestation Raquel Lainez MD Work Phone: Start: 11-18-[address]24 Transvaginal obst[address] ic ultrasonography Dr. [...] HCV Quant by PCR testing - HCVPCR #[id number] Non Reactive: < 0.8 Equivocal: >/= 0.8 [...] retroperitoneal r eal time w/image complete Jesse Edwards CPNP Work Phone: Start: 10-09-2024 Replace gastrostomy/cecostomy tube percutaneous Andres Fitzgerald KRAFT MILL OPERATOR Work Phone: Start: 04-10-2024 Replace gastrostomy/cecostomy tube percutaneous Chaitanya Akins KRAFT MILL OPERATOR Work Phone: Start: 04-10-2024 Radiologic exam abdo men 1 view Chaitanya Akins KRAFT MILL OPERATOR Work Phone: Start: 01-22-2023 Assay of progesterone V alerie Dudziak POLYGRAPH TECHNICIAN.ENGINEERING LECTURER Work Phone: Start: 11-23-2022 Assay of estradiol [place] dawit Dudziak POLYGRAPH TECHNICIAN.ENGINEERING LECTURER Work Phone: Start: 11-22-2022 Us pelvic nonobstetr ic image dcmtn limited/f/u Stuart Dudziak POLYGRAPH TECHNICIAN.ENGINEERING LECTURER Work Phone: Start: 11-22-2022 Assay of estradiol [place] dawit Dudziak POLYGRAPH TECHNICIAN.ENGINEERING LECTURER Work Phone: Start: 11-15-2022 Assay of estradiol Elizabeth dawit Dudziak POLYGRAPH TECHNICIAN.ENGINEERING LECTURER Work Phone: Start: 09-07-2022 Us pelvic nonobstetr ic image dcmtn limited/f/u Marina Mindzora POLYGRAPH TECHNICIAN.ENGINEERING LECTURER Work Phone: Start: 09-07-2022 Assay of estradiol Avery en Mindzora POLYGRAPH TECHNICIAN.ENGINEERING LECTURER Work Phone: Start: 09-04-2022 Us pelvic nonobstetr ic image dcmtn limited/f/u Marina Mindzora POLYGRAPH TECHNICIAN.ENGINEERING LECTURER Work Phone: Start: 09-04-2022 Assay of estradiol Avery en Mindzora POLYGRAPH TECHNICIAN.ENGINEERING LECTURER Work Phone: Start: 08-29-2022 Us pelvic nonobstetr ic image dcmtn limited/f/u Marina Mindzora POLYGRAPH TECHNICIAN.ENGINEERING LECTURER Work Phone: Start: 08-11-2022 Us pelvic nonobstetr ic image dcmtn limited/f/u Shelby Bob PA-C Work Phone: Start: 08-11-2022 WHI ULTRASOUND GUIDE D PROCEDURE Mackenzie Duran MD Work Phone: Start: 08-10-2022 Gonadotropin chorion ic quantitative Ysabel Scott MD Work Phone: Start: 08-09-2022 Us pelvic nonobstetr ic image dcmtn limited/f/u Shelby Smolen PA-C Work Phone: Start: 08-09-2022 Assay of estradiol [place] dawit Dudziak POLYGRAPH TECHNICIAN.ENGINEERING LECTURER Work Phone: Start: 08-08-2022 Us pelvic nonobstetr ic image dcmtn limited/f/u Shelby Smolen PA-C Work Phone: Start: 08-08-2022 Assay of estradiol Kayi jada Scott MD Work Phone: Start: 08-07-2022 Us pelvic nonobstetr ic image dcmtn limited/f/u Shelby Smolen PA-C Work Phone: Start: 08-07-2022 Assay of estradiol Elizabeth dawit Dudziak POLYGRAPH TECHNICIAN.ENGINEERING LECTURER Work Phone: Start: 08-03-2022 Us pelvic nonobstetr ic image dcmtn limited/f/u Shelby Smolen PA-C Work Phone: Start: 08-03-2022 Assay of estradiol Panda Duran MD Work Phone: Start: 08-02-2022 Us pelvic nonobstetr ic image dcmtn limited/f/u Stuart Dudziak POLYGRAPH TECHNICIAN.ENGINEERING LECTURER Work Phone: Start: 08-02-2022 Assay of estradiol Chante Cardenas MD Work Phone: Start: 07-25-2022 Us pelvic nonobstetr ic image dcmtn limited/f/u Shelby Smolen PA-C Work Phone: Start: 07-25-2022 Assay of estradiol Elizabeth dawit Dudziak POLYGRAPH TECHNICIAN.ENGINEERING LECTURER Work Phone: Start: 07-06-2022 Us pelvic nonobstetr ic image dcmtn limited/f/u Stuart Dudziak POLYGRAPH TECHNICIAN.ENGINEERING LECTURER Work Phone: Start: 07-06-2022 Assay of estradiol Iryn a Smolen PA-C Work Phone: Start: 05-01-2022 Us pelvic nonobstetr ic image dcmtn limited/f/u Stuart Dudziak POLYGRAPH TECHNICIAN.ENGINEERING LECTURER Work Phone: Start: 05-01-2022 Assay of estradiol Elizabeth dawit Dudziak POLYGRAPH TECHNICIAN.ENGINEERING LECTURER Work Phone: Start: 04-24-2022 Us pelvic nonobstetr ic image dcmtn limited/f/u Stuart Dudziak POLYGRAPH TECHNICIAN.ENGINEERING LECTURER Work Phone: Start: 04-24-2022 Assay of estradiol [place] dawit Dudziak POLYGRAPH TECHNICIAN.[facility] Work Phone: Start: 02-24-2022 Assay of estradiol Elizabeth dawit Dudziak POLYGRAPH TECHNICIAN.[facility] Work Phone: Start: 02-22-2022 Us pelvic nonobstetr ic image dcmtn limited/f/u Aiyana A Yozipovich POLYGRAPH TECHNICIAN.[facility] Work Phone: Start: 02-22-2022 Assay of estradiol Albino y A Yozipovich POLYGRAPH TECHNICIAN.[facility] Work Phone: Start: 01-26-2022 Assay of estradiol [place] dawit Dudziak POLYGRAPH TECHNICIAN.[facility] Work Phone: Start: 12-21-2021 Urine test [...] Work Phone: Start: 09-26-2021 Assay of estradiol Albnio y A Yozipovich POLYGRAPH TECHNICIAN.[facility] Work Phone: Plan of Treatment Date Care Activity Detail Author Start: 10-08-2026 End: 10-09-2026 US Kidney US Kidney Imaging Routine Anorectal malformation Expected: 10/08/2026 (Approximate), Expires: 10/09/2026 [facility] Work Phone: Comment on above: Expected: 10/08/2026 (Approximate), Expires: 10/09/2026 Start: 04-02-2025 End: 04-02-2025 Follow-up encounter 04/02/2025 8:15 AM EDT Follow [facility] Visit [facility] [address] [place] [address] [facility] Start: 04-01-2025 RSV Immunization (1 - Risk 1-dose series) RSV Immunization (1 - Risk 1-dose series) [facility] Start: 04-01-2025 RSV VACCINE (1 - Ris k 1-dose series) RSV VACCINE (1 - Risk 1-dose series) [facility] Start: 03-03-2025 End: 03-03-2025 Follow-up encounter 03/03/2025 9:30 AM EDT Follow Up Visit [facility] [place] [address] [facility] [address] [place] [address] Raquel Lainez MD [address] [facility] [address] [place] [id number] [facility] [place] Start: 02-19-2025 CBC W Auto Differential panel - Blood [facility] Start: 02-19-2025 Measurement of gluco se 2 hours after glucose challenge for glucose tolerance test [facility] Start: 02-19-2025 Serologic test for syphilis [facility] Start: 02-19-2025 [facility] Start: 02-18-2025 End: 02-04-2026 heart monitoring ECHOCARDIOGRAM, ECHO Routine resulting from in vitro fertilization, antepartum Expected: 02/18/2025 (Approximate), Expires: 02/04/2026 [facility] Work Phone: Comment on above: Expected: 02/18/2025 (Approximate), Expires: 02/04/2026 Start: 02-16-2025 Influenza vaccination INFLUENZA VACC INE (#1) [facility] Start: 01-22-2025 End: 01-22-2026 OB ultrasound panel US OB GROWTH/DATING > 14WEEKS Imaging Routine Encounter for ultrasound to assess interval growth of fetus AMA (advanced maternal age) multigravida 35+, second trimester Expected: 01/22/2025, Expires: 01/22/2026 [facility] Comment on above: Expected: 01/22/2025 , Expires: 01/22/2026 Start: 01-22-2025 End: 01-22-2025 Follow-up encounter 01/22/2025 1:00 PM EDT Follow [facility] Visit [facility] [address] [place] [id number] [facility] [place] Start: 12-30-2024 End: 12-30-2025 [id number] [Presence] in Serum or Plasma [facility] Comment on above: Expected: 12/30/2024 , Expires: 12/30/2025 Start: 12-30-2024 End: 12-30-2025 OB ultrasound panel US OB GROWTH/DATING > 14WEEKS Imaging Routine Encounter for ultrasound to assess interval growth of fetus Encounter for follow-up ultrasound of anatomy Expected: 12/30/2024, Expires: 12/30/2025 [facility] Comment on above: Expected: 12/30/2024 , Expires: 12/30/2025 Start: 10-30-2024 CBC W Auto Differential panel - Blood [facility] Start: 10-30-2024 Hepatitis C antibody measurement [facility] Start: 10-30-2024 Rubella IgG measurement [facility] Start: 10-30-2024 Serologic test for syphilis [facility] Start: 10-30-2024 T4 free measurement [facility] Start: 10-30-2024 Thyroid stimulating hormone measurement [facility] Start: 10-30-2024 [facility] Start: 10-09-2024 End: 04-10-2025 IR Consult IR Consult Imaging Routine Anorectal malformation Other constipation History of antegrade continence enema procedure Expected: 10/09/2024 (Approximate), Expires: 04/10/2025 [facility] Comment on above: Expected: 10/09/2024 (Approximate), Expires: 04/10/2025 Start: 10-09-2024 End: 04-10-2025 XR Abdomen Supine and Upright XR Abdomen - Supine Imaging Routine Anorectal malformation Other constipation History of antegrade continence enema procedure Expected: 10/09/2024 (Approximate), Expires: 04/10/2025 [facility] Work Phone: Comment on above: Expected: 10/09/2024 (Approximate), Expires: 04/10/2025 Start: 10-09-2024 End: 10-09-2024 Patient encounter procedure Ultrasound [facility] Start: 05-09-2024 End: 04-09-2025 XR Abdomen Supine and Upright XR Abdomen - Supine Imaging Routine Anorectal malformation Expected: 05/09/2024 (Approximate), Expires: 04/09/2025 [facility] Work Phone: Comment on above: Expected: 05/09/2024 (Approximate), Expires: 04/09/2025 Start: 04-10-2024 Subsequent hospital visit by physician 04/10/2024 1:30 PM EDT Hospital Encounter Interventional [address] [address] Discharge Disposition: Home Interventional [facility] Start: 04-10-2024 End: 04-10-2024 Patient encounter procedure [facility] Start: 04-09-2024 End: 04-08-2025 IR Consult IR Consult Imaging Routine Anorectal malformation Expected: 04/09/2024 (Approximate), Expires: 04/08/2025 [facility] Work Phone: Comment on above: Expected: 04/09/2024 (Approximate), Expires: 04/08/2025 Start: 02-17-2024 COVID-19 Vaccine ( season) COVID-19 Vaccine () [facility] Start: 02-17-2024 Influenza vaccination Influenza Vacc ine (#1) [facility] Start: 02-16-2023 Influenza vaccination INFLUENZA (#1) [facility] Start: 08-08-2022 End: 10-08-2022 Estradiol (E2) [Mass/volume] in Serum or Plasma ESTRADIOL-17B BLD Lab STAT Female infertility Expected: 08/08/2022, Expires: 10/08/2022 [facility] Work Phone: Comment on above: Expected: 08/08/2022 , Expires: 10/08/2022 Start: 08-08-2022 End: 10-08-2022 Lutropin [Units/volume] in Serum or Plasma LUTEINIZING HORMONE Lab STAT Female infertility Expected: 08/08/2022, Expires: 10/08/2022 [facility] Work Phone: Comment on above: Expected: 08/08/2022 , Expires: 10/08/2022 Start: 08-08-2022 End: 10-08-2022 Progesterone [Mass/volume] in Serum or Plasma PROGESTERONE BLD Lab STAT Female infertility Expected: 08/08/2022, Expires: 10/08/2022 [facility] Work Phone: Comment on above: Expected: 08/08/2022 , Expires: 10/08/2022 Start: 08-01-2022 End: 10-01-2022 Estradiol (E2) [Mass/volume] in Serum or Plasma ESTRADIOL-17B BLD Lab STAT Female infertility Expected: 08/01/2022 (Approximate), Expires: 10/01/2022 [facility] Work Phone: Comment on above: Expected: 08/01/2022 (Approximate), Expires: 10/01/2022 Start: 07-26-2022 End: 09-25-2022 Lutropin [Units/volume] in Serum or Plasma LUTEINIZING HORMONE Lab STAT Female infertility Expected: 07/26/2022, Expires: 09/25/2022 [facility] Work Phone: Comment on above: Expected: 07/26/2022 , Expires: 09/25/2022 Start: 07-26-2022 End: 09-25-2022 Progesterone [Mass/volume] in Serum or Plasma PROGESTERONE BLD Lab STAT Female infertility Expected: 07/26/2022, Expires: 09/25/2022 [facility] Work Phone: Comment on above: Expected: 07/26/2022 , Expires: 09/25/2022 Start: 07-24-2022 End: 07-24-2023 FOLLICULAR US WHI FOLLICULAR US I Anc Imaging Routine Female infertility Expected: 07/24/2022, Expires: 07/24/2023 [facility] Work Phone: Comment on above: Expected: 07/24/2022 , Expires: 07/24/2023 Start: 06-18-2022 DEPRESSION ASSESSMENT DEPRESSION ASS ESSMENT [facility] Start: 05-01-2022 End: 07-01-2022 WHIIVF ANTI MULLERIAN HORMONE WHIIVF ANTI MULLERIAN HORMONE Lab STAT Encounter for fertility testing Expected: 05/01/2022, Expires: 07/01/2022 [facility] Work Phone: Comment on above: Expected: 05/01/2022 , Expires: 07/01/2022 Start: 04-24-2022 End: 06-24-2022 Hematocrit [Volume Fraction] of Blood HEMATOCRIT (HCT) Lab STAT Female infertility Expected: 04/24/2022, Expires: 06/24/2022 [facility] Work Phone: Comment on above: Expected: 04/24/2022 , Expires: 06/24/2022 Start: 03-16-2022 End: 05-16-2022 Choriogonadotropin.bet a subunit [Units/volume] in Serum or Plasma HCG QUANTITATIVE Lab STAT examination or test, unconfirmed Expected: 03/16/2022, Expires: 05/16/2022 [facility] Work Phone: Comment on above: Expected: 03/16/2022 , Expires: 05/16/2022 Start: 02-16-2022 Influenza vaccination [facility] Start: 12-26-2021 End: 02-25-2022 Estradiol (E2) [Mass/volume] in Serum or Plasma ESTRADIOL-17B BLD Lab STAT Primary female infertility Expected: 12/26/2021, Expires: 02/25/2022 [facility] Work Phone: Comment on above: Expected: 12/26/2021 , Expires: 02/25/2022 Start: 12-26-2021 End: 02-25-2022 Progesterone [Mass/volume] in Serum or Plasma PROGESTERONE BLD Lab STAT Primary female infertility Expected: 12/26/2021, Expires: 02/25/2022 [facility] Work Phone: Comment on above: Expected: 12/26/2021 , Expires: 02/25/2022 Start: 10-09-2021 End: 12-09-2021 PROGESTERONE BLD PROGESTERONE BLD Lab STAT Female infertility Expected: 10/09/2021 (Approximate), Expires: 12/09/2021 [facility] Work Phone: Comment on above: Expected: 10/09/2021 (Approximate), Expires: 12/09/2021 Start: 10-08-2021 End: 12-08-2021 Estradiol (E2) [Mass/volume] in Serum or Plasma ESTRADIOL-17B BLD Lab Routine Encounter for fertility testing Expected: 10/08/2021, Expires: 12/08/2021 [facility] Work Phone: Comment on above: Expected: 10/08/2021 , Expires: 12/08/2021 Start: 10-07-2021 End: 01-06-2022 Estradiol (E2) [Mass/volume] in Serum or Plasma ESTRADIOL-17B BLD Lab STAT Female infertility Expected: 10/07/2021, Expires: 01/06/2022 [facility] Work Phone: Comment on above: Expected: 10/07/2021 , Expires: 01/06/2022 Start: 10-06-2021 End: 12-06-2021 PROGESTERONE BLD PROGESTERONE BLD Lab STAT Female infertility Expected: 10/06/2021, Expires: 12/06/2021 [facility] Work Phone: Comment on above: Expected: 10/06/2021 , Expires: 12/06/2021 Start: 09-22-2021 End: 12-22-2021 Estradiol (E2) [Mass/volume] in Serum or Plasma ESTRADIOL-17B BLD Lab STAT Female infertility Expected: 09/22/2021, Expires: 12/22/2021 [facility] Work Phone: Comment on above: Expected: 09/22/2021 , Expires: 12/22/2021 Start: 06-18-2021 DEPRESSION ASSESSMENT DEPRESSION ASS ESSMENT [facility] Start: 12-25-2020 COVID-19 VACCINE (3 - Booster for Moderna series) COVID-19 VACCINE (3 - Booster for Moderna series) [facility] Start: 09-22-2020 COVID-19 VACCINE (3 - Booster for Moderna series) COVID-19 VACCINE (3 - Booster for Moderna series) [facility] Start: 09-22-2020 COVID-19 VACCINE (3 - Moderna series) COVID-19 VACCINE (3 - Moderna series) [facility] Start: 2016 HPV TESTING HPV TESTING [facility] Start: 2013 HPV Vaccine (1 - 3-dose SCDM series) HPV Vaccine (1 - 3-dose SCDM series) [facility] Start: 08-28-2007 PAP TESTING PAP TESTING [facility] Start: 08-28-2007 Screening for malignant neoplasm of cervix CERVICAL CANCER SCREENING DISCUSSION [facility] Start: 2005 Hepatitis B vaccination HEP B VACCINE (1 of 3 - 19+ 3-dose series) [facility] Start: 2005 Hepatitis B Vaccine (1 of 3 - 19+ 3-dose series) Hepatitis B Vaccine (1 of 3 - 19+ 3-dose series) [facility] Start: 2005 Third diphtheria, tetanus and acellular pertussis (DTaP) vaccination TDAP (ADULT) [facility] Start: 2005 Urine microalbumin profile DTAP,TDAP,TD (1 - Tdap) [facility] Start: 2001 HIV screening HIV SCREENING DISCUSSION [facility] Start: 08-28-1999 Varicella Vaccine (1 of 2 - 13+ 2-dose series) Varicella Vaccine (1 of 2 - 13+ 2-dose series) [facility] Start: 1998 Adult depression screening assessment DEPRESSION SCREENING [facility] Start: 1993 DTaP/Tdap/Td Vaccine (1 - Tdap) DTaP/Tdap/Td Vaccine (1 - Tdap) [facility] Start: 08-28-1987 MMR Vaccine (1 of 1 - Standard series) MMR Vaccine (1 of 1 - Standard series) [facility] Start: 1986 HEPATITIS B (1 of 3 - 3-dose series) HEPATITIS B (1 of 3 - 3-dose series) [facility] Start: 1986 Hepatitis C screening HEPATITI S C VIRUS SCREENING [facility] Start: 1986 Tetanus vaccination TETANUS [facility] Start: 1986 Thyroid stimulating hormone measurement TSH [facility] CBC W Auto Differential panel - Blood [facility] CBC W Auto Differential panel - Blood [facility] CHG US PREG UTERUS REAL TIME F/U TRNSABDL PER FETUS CHG US PREG UTERUS REAL TIME F/U TRNSABDL PER FETUS HI - OFFICE PERFORMED IMAGING Routine Encounter for follow-up ultrasound of anatomy 22 weeks gestation of AMA (advanced maternal age) multigravida 35+, second trimester Ordered: 01/22/2025 [facility] Comment on above: Ordered: 01/22/2025 CHG US PREG UTERUS REAL TIME W/IMAGE DCMTN TRANSVAG CHG US PREG UTERUS REAL TIME W/IMAGE DCMTN TRANSVAG HI - OFFICE PERFORMED IMAGING Routine Encounter for screening for risk of pre-term labor 18 weeks gestation of Ordered: 12/30/2024 [facility] Comment on above: Ordered: 12/30/2024 CHG US PREG UTERUS W/DETAIL ZORAN 1ST GESTATION CHG US PREG UTERUS W/DETAIL ZORAN 1ST GESTATION HI - OFFICE PERFORMED IMAGING Routine Encounter for anatomic survey 18 weeks gestation of AMA (advanced maternal age) multigravida 35+, second trimester Ordered: 12/30/2024 [facility] Comment on above: Ordered: 12/30/2024 Erythrocyte mean corpuscular volume determination [facility] Erythrocyte mean corpuscular volume determination [facility] End: 04-11-2023 Estradiol (E2) [Mass/volume] in Serum or Plasma ESTRADIOL-17B BLD Lab STAT Encounter for fertility testing 6 Occurrences starting 04/11/2022 until 04/11/2023 [facility] Work Phone: Comment on above: 6 Occurrences starti ng 04/11/2022 until 04/11/2023 End: 08-24-2022 Estradiol (E2) [Mass/volume] in Serum or Plasma ESTRADIOL-17B BLD Lab STAT Female infertility 6 Occurrences starting 07/24/2022 until 08/24/2022 [facility] Work Phone: Comment on above: 6 Occurrences starti ng 07/24/2022 until 08/24/2022 End: 10-30-2022 Estradiol (E2) [Mass/volume] in Serum or Plasma ESTRADIOL-17B BLD Lab STAT Female infertility 6 Occurrences starting 08/28/2022 until 10/30/2022 [facility] Work Phone: Comment on above: 6 Occurrences starti ng 08/28/2022 until 10/30/2022 End: 10-22-2021 FOLLICULAR US WHI FOLLICULAR US WHI Anc Imaging Routine Female infertility 6 Occurrences starting 09/22/2021 until 10/22/2021 [facility] Work Phone: Comment on above: 6 Occurrences starti ng 09/22/2021 until 10/22/2021 End: 11-05-2021 FOLLICULAR US WHI FOLLICULAR US WHI Anc Imaging Routine Female infertility 6 Occurrences starting 10/06/2021 until 11/05/2021 [facility] Work Phone: Comment on above: 6 Occurrences starti ng 10/06/2021 until 11/05/2021 FOLLICULAR US WHI FOLLICULAR US WHI Anc Imaging Routine Primary female infertility Ordered: 12/26/2021 [facility] Work Phone: Comment on above: Ordered: 12/26/2021 End: 03-24-2022 FOLLICULAR US WHI FOLLICULAR US WHI Anc Imaging Routine Female infertility 6 Occurrences starting 02/22/2022 until 03/24/2022, 1 completed [facility] Work Phone: Comment on above: 6 Occurrences starti ng 02/22/2022 until 03/24/2022, 1 completed End: 04-11-2023 FOLLICULAR US WHI FOLLICULAR US WHI Anc Imaging Routine Encounter for fertility testing Daily for 6 Occurrences starting 04/11/2022 until 04/11/2023 [facility] Work Phone: Comment on above: Daily for 6 Occurren javy starting 04/11/2022 until 04/11/2023 End: 10-30-2022 FOLLICULAR US WHI FOLLICULAR US WHI Anc Imaging Routine Female infertility Daily for 6 Occurrences starting 08/28/2022 until 10/30/2022 [facility] Work Phone: Comment on above: Daily for 6 Occurren javy starting 08/28/2022 until 10/30/2022 Hematocrit [Volume Fraction] of Blood [facility] Hematocrit [Volume Fraction] of Blood [facility] Hemoglobin [Mass/volume] in Blood [facility] Hemoglobin [Mass/volume] in Blood [facility] Hepatitis B virus surface Ag [Presence] in Serum [facility] Hepatitis C antibody measurement [facility] Leukocytes [#/volume ] in Blood [facility] Leukocytes [#/volume ] in Blood [facility] Mean corpuscular hemoglobin concentration determination [facility] Mean corpuscular hemoglobin concentration determination [facility] Mean corpuscular hemoglobin determination [facility] Mean corpuscular hemoglobin determination [facility] Measurement of gluco se 2 hours after glucose challenge for glucose tolerance test [facility] Neutrophil count [facility] Neutrophil count [facility] Neutrophil percent differential count [facility] Neutrophil percent differential count [facility] End: 11-30-2022 OFFICE HYSTEROSCOPY OFFICE HYSTEROSCOPY Procedures Routine Encounter for fertility testing 1 Occurrences starting 12/01/2021 until 11/30/2022 [facility] Work Phone: Comment on above: 1 Occurrences starti ng 12/01/2021 until 11/30/2022 Platelets [#/volume] in Blood [facility] Platelets [#/volume] in Blood [facility] Procedure [facility] Red blood cell count [facility] Red blood cell count [facility] Red cell distributio n width determination [facility] Red cell distributio n width determination [facility] Rubella IgG measurement [facility] Serologic test for syphilis [facility] Serologic test for syphilis [facility] T4 free measurement [facility] Thyroid stimulating hormone measurement [facility] Immunizations Immunization Date Immunization Notes Care Provider [facility] 04-27-2022 influenza, injectabl e, quadrivalent, preservative free Lyn Arguelles MD Work Phone: [facility] 04-27-2022 influenza virus vaccine, unspecified formulation Andres Fitzgerald APN Work Phone: [facility] 07-28-2020 COVID-19 vaccine, fu ll dose (MODERNA) Aiyana Yozipovich POLYGRAPH TECHNICIAN.ENGINEERING LECTURER Work Phone: [facility] 06-30-2020 COVID-19 vaccine, fu ll dose (MODERNA) Aiyana Yozipovich POLYGRAPH TECHNICIAN.ENGINEERING LECTURER Work Phone: [facility] 04-06-2020 influenza virus vaccine, unspecified formulation Aiyana Yozipovich POLYGRAPH TECHNICIAN.ENGINEERING LECTURER Work Phone: [facility] 03-24-2020 influenza, seasonal, injectable Aiyana Yozipovich POLYGRAPH TECHNICIAN.ENGINEERING LECTURER Work Phone: [facility] Payers Date Payer Category Payer Managed Care (unspecified) FORMERLY [facility] PPO POS [id number] 2024 Self-pay 2022 Unknown [id number] 2021 Private Health Insurance [facility] CHOICE PLUS [id number] 2021-Present [phone] [address] [place] [address] O [id number] 2021 Private Health Insurance [id number] 2021 Unknown [id number] 2020 Unknown [id number] 2015 Unknown [id number] 1986 Unknown [id number] 2.16.840.1.027075.3.579.2. 594 1986 Unknown [id number] 2.16.840.1.033502.3.579.2. 651 1986 Unknown [id number] 2.16.840.1.341379.3.579.2. 598 1986 Unknown [id number] 2.16.840.1.495439.3.579.2. 598 1986 Unknown [id number] 2.16.840.1.891835.3.579.2. 479 1986 Unknown [id number] 2.16.840.1.030766.3.579.2. 479 1986 Unknown [id number] 2.16.840.1.671884.3.579.2. 594 1986 Unknown [id number] 2.16.840.1.297798.3.579.2. 594 1986 Unknown [id number] 2.16.840.1.223132.3.579.2. 594 1986 Unknown [id number] 2.16.840.1.951896.3.579.2. 430 1986 Unknown [id number] 2.16.840.1.561539.3.579.2. 430 1986 Unknown [id number] 2.16.840.1.376636.3.579.2. 430 1986 Unknown [id number] 2.16.840.1.200032.3.579.2. 430 1986 Unknown [id number] 2.16.840.1.067505.3.579.2. 430 1986 Unknown [id number] 2.16.840.1.468044.3.579.2. 430 1986 Unknown [id number] 2.16.840.1.997308.3.579.2. 430 1959 Unknown [id number] Self-pay [id number] Unknown [id number] Unknown [id number] 2.16.840.1.330817.3.579.2. 462 Unknown [id number] 2.16.840.1.512569.3.579.2. 462 Unknown [id number] 2.16.840.1.241680.3.579.2. 462 Unknown [id number] 2.16.840.1.224855.3.579.2. 462 Unknown [id number] 2.16.840.1.863048.3.579.2. 462 Unknown [id number] 2.16.840.1.145051.3.579.2. 462 Unknown [id number] 2.16.840.1.120970.3.579.2. 462 Unknown [id number] 2.16.840.1.653693.3.579.2. 462 Unknown [id number] 2.16.840.1.699863.3.579.2. 462 Unknown [id number] 2.16.840.1.913542.3.579.2. 462 Unknown [id number] 2.16.840.1.681208.3.579.2. 462 Unknown [id number] 2.16.840.1.396451.3.579.2. 462 Unknown [id number] 2.16.840.1.858552.3.579.2. 462 Unknown [id number] 2.16.840.1.173228.3.579.2. 462 Unknown [id number] 2.16.840.1.828921.3.579.2. 462 Unknown [id number] 2.16.840.1.803467.3.579.2. 462 Unknown [id number] 2.16.840.1.463085.3.579.2. 462 Social History Date Type Detail Facility Start: 10-01-2019 End: 10-14-2024 Tobacco smoking status NHIS Never smoked tobacco [facility] Work Phone: Start: 10-01-2019 End: 02-09-2025 Tobacco use and exposure Smokeless tobacco non-user [facility] Work Phone: Start: 03-16-2021 End: 02-09-2025 Alcohol intake Ex-drinker (finding) [facility] Start: 1985 Sex Assigned At Female [facility] Start: 09-10-2021 End: 04-24-2022 Exposure to SARS-CoV-2 (event) Not sure [facility] Work Phone: Start: 10-06-2021 End: 10-16-2021 Exposure to SARS-CoV-2 (event) Unable to assess [facility] Start: 10-10-2021 End: 04-10-2024 History of Social function [facility] Start: 10-10-2021 End: 04-10-2024 Tobacco use panel [facility] National Score (1-100), lower number is lower risk Not on file [facility] Start: 12-23-2019 Gender identity Identifies as female gender (finding) [facility] Start: 12-23-2019 Sexual orientation Heterosexual (shen soni) [facility] Tobacco smoking status NHIS Tobacco smoking consumption unknown [facility] (I/We) worried whether (my/our) food would run out before (I/we) got money to buy more. Never true [facility] In the past 12 months, was there a time when you were not able to pay the mortgage or rent on time? No [facility] Start: 1985 Sex Assigned At Not on file [facility] Start: 04-14-2016 Alcohol Alcohol [facility] Start: 04-14-2016 Tobacco Use Tobacco Use [facility] Start: 09-03-2024 [facility] Start: 07-21-2012 Sex Female (finding) [facility] NEGATED: Highlighted rowStart: NINF History of tobacco use Passive smoker [facility] Medical Equipment Procedure Code Equipment Code Equipment [...] w dose HCG Clinical Notes 09-22-2021 to 02-19-2025 Dee Dee Frost 02/09/2025 1:00 PM EDTPatient InstructionsBethany T Dion, MD - 01/22/2025 1:00 PM EDTFrederick Baugh - 12/30/2024 11:15 AM EDTShan Negron - 12/30/2024 11:15 AM EDT Note Date & Type Note Facility 02-19-2025 Progress note [facility] 02-09-2025 History of Present illness Narrative See Echo Report documented in this encounter [facility] 02-09-2025 Instructions Frederick Beck RN - 02/09/2025 1:00 PM EDT Images from the original note were not included. Call your primary OB or go to the nearest hospital if you think you are in labor. Call 911 for any emergency. All delivery plans should be discussed with your primary OBGYN or maternal medicine provider. Call [phone]), option 2 to speak with the Center Nurse Coordinator for any questions or concerns. At 28 weeks, you should start counting your baby's kicks. Follow these 3 simple steps: 1) Each day at the same time (evening is best), sit down or lay on your side and begin counting your baby's kicks. 2) You should feel at least 10 kicks in 2 hours. 3) If at anytime you do not feel your baby move 10 times in 2 hours OR if you notice a change in your baby's normal pattern of movement, call your doctor right away. You can visit [email or web address] or scan the QR Code below to download the free jerri to help track your baby's kick counts. documented in this encounter [facility] 01-22-2025 History of Present illness Narrative An INSURANCE ADMINISTRATIVE ASSISTANT ultrasound was performed today. Our ultrasound exams are reported in the system. The complete report, including recommendations, are faxed separately to outside physician offices. If your office utilizes [facility], the ultrasound reports can be found under the imaging tab in Chart Review. Please click on view report under imaging report and not show images. If accessing this information through [employer], it is located under the Other Results tab and is not located in the documents portion of this system documented [facility] this [facility] History of Present illness Narrative Latonya Rodarte was offered and declined a Medical Operations Chief for this exam/procedure/test 12/30/2024. Latonya Rodarte had venipuncture blood draw today in office as requested by Dr Lainez. (Patient's provider is in office today.) Venipuncture performed successfully Number of attempts: 1 Site of draw: right arm Excessive Bleeding or Bruising at draw site: No How did the patient tolerate the procedure? well Gold Tube: 1 documented in this encounter [facility] 12-30-2024 History of Present illness Narrative An INSURANCE ADMINISTRATIVE ASSISTANT ultrasound was performed today. Our ultrasound exams are reported in the system. The complete report, including recommendations, are faxed separately to outside physician offices. If your office utilizes [facility], the ultrasound reports can be found under the imaging tab in Chart Review. Please click on view report under imaging report and not show images. If accessing this information through [employer], it is located under the Other Results tab and is not located in the documents portion of this system documented in this encounter [facility] 11-18-2024 Radiology Diagnostic study note [facility] Imaging Services [address] [place], [place] [id number] Transvaginal w/Preg US MR#: [id number] Acct: [id number] Name: LATONYA RODARTE Rep #: [id number] : 1985 F 39 From: Etelvina Dominguez MD PCP: Dr. Imani Helm DO Status: REG CLI Study:Transvaginal w/Preg US Date of Exam: 11/18/24 Exam# [id number] Ordering Dr: Jesse Horvath NP DEVICE REPAIR TECHNICIAN-C PROCEDURE: TRANSVAGINAL W/PREG US 11/18/2024 REASON FOR [...] ovaries are not well seen. Reading Location: [id number] CC: FERNANDO Horvath; Dr. 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 [facility] 10-30-2024 Progress note [facility] 10-24-2024 Evaluation note Diagnosis Onset Date Resolution Advanced [...] of high-risk acute October 24, 2024 11:26am 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 24, 2024 11:26am Rectal atresia chronic October 24, 2 025 11:26am Recto-vaginal fistula chronic October 24, 2024 11:26am Tethered cord chronic October 24 11:26am Congenital duplication of uterus resolved October 24, 2024 11:26am Duplicate cervix resolved October 24, 2024 11:26am Hydrosalpinx resolved October 24 11:26am Imperforate anus resolved October 24, 2024 11:26am Lipoma of back resolved October 24, 2 025 11:26am VACTERL syndrome deleted October 24, 2024 11:26am Advanced maternal age (AMA) in acute October 30 9:03am Anxiety and depression acute Ma y 2024 9:03am 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 October 30, 2024 9:03am History of miscarriage, currently acute October 30 9:03am Hx of maternal blood transfusion, currently acute October 30, 2024 9:03am Hypothyroidism affecting acute October 30, 2024 9:03am In vitro fertilization acute Ma y 2024 9:03am acute October 30, 2024 9:03am Supervision of high-risk acute October 30, 2024 9:03am UTI (urinary tract infection) during acute October 30, 2024 9:03am 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 30, 2024 9:03am Rectal atresia chronic October 30, 2024 9:03am Recto-vaginal fistula chronic October 30, 2024 9:03am Tethered cord chronic October 30, 2 025 9:03am Congenital duplication of uterus resolved October 30, 2024 9:03am Imperforate anus resolved October 9:03am Lipoma of back resolved October 30, 2024 9:03am VACTERL syndrome deleted October 9:03am Advanced maternal age (AMA) in acute November 06 2:01pm Anxiety and depression acute Ma y 2024 2:01pm 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 November 06, 2024 2:01pm History of miscarriage, currently acute November 06 2:01pm Hx of maternal blood transfusion, currently acute November 06, 2024 2:01pm Hypothyroidism affecting acute November 06, 2024 2:01pm In vitro fertilization acute Ma y 2024 2:01pm acute November 06, 2024 2:01pm Supervision of high-risk acute November 06, 2024 2:01pm UTI (urinary tract infection) during acute November 06, 2024 2:01pm Congenital duplication of vagina chronic November 06, 2024 2:01pm Rectal atresia chronic November 06, 2024 2:01pm Recto-vaginal fistula chronic November 06, 2024 2:01pm Tethered cord chronic November 06, 2 025 2:01pm VACTERL syndrome deleted October 2:01pm Advanced maternal age (AMA) in acute November 13 8:07am Anxiety and depression acute Ma y 2024 8:07am 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 November 13, 2024 8:07am History of miscarriage, currently acute November 13 8:07am Hx of maternal blood transfusion, currently acute November 13, 2024 8:07am Hypothyroidism affecting acute November 13, 2024 8:07am In vitro fertilization acute Ma y 2024 8:07am acute November 13, 2024 8:07am Supervision of high-risk acute November 13, 2024 8:07am UTI (urinary tract infection) during acute November 13, 2024 8:07am Congenital duplication of vagina chronic November 13, 2024 8:07am Rectal atresia chronic November 13, 2024 8:07am Recto-vaginal fistula chronic November 13, 2024 8:07am Tethered cord chronic November 13, 2 025 8:07am VACTERL syndrome deleted October 8:07am Advanced maternal age (AMA) in acute November 18 2:10pm Anxiety and depression acute 2024 2:10pm 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 November 18, 2024 2:10pm History of miscarriage, currently acute November 18 2:10pm Hx of maternal blood transfusion, currently acute November 18, 2024 2:10pm Hypothyroidism affecting acute November 18, 2024 2:10pm In vitro fertilization acute 2024 2:10pm acute November 18, 2024 2:10pm Spotting affecting in first trimester acute November 18, 2024 2:10pm Supervision of high-risk acute November 18, 2024 2:10pm Congenital duplication of vagina chronic November 18, 2024 2:10pm Rectal atresia chronic November 18, 2024 2:10pm Recto-vaginal fistula chronic Nov 2:10pm Tethered cord chronic November 18, 2:10pm 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 2:10pm Advanced maternal age (AMA) in acute November 26 2:33pm Anxiety and depression acute ne 2024 2:33pm ARM (anorectal malformation) acute November 26, 2024 2:33pm 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 November 26, 2024 2:33pm History of miscarriage, currently acute November 26 2:33pm Hx of maternal blood transfusion, currently acute November 26, 2024 2:33pm Hypothyroidism affecting acute November 26, 2024 2:33pm In vitro fertilization acute [facility] 2024 2:33pm acute November 26 2:33pm Spotting affecting in first trimester acute November 26, 2024 2:33pm Supervision of high-risk acute November 26, 2024 2:33pm UTI (urinary tract infection) during acute November 26, 2024 2:33pm 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, 2024 2:33pm Rectal atresia chronic November 26, 2024 2:33pm Recto-vaginal fistula chronic Nov 2:33pm Tethered cord chronic November 26, 2024 2:33pm 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 2:33pm Advanced maternal age (AMA) in acute December 24 11:40am Anxiety and depression acute Ju ly 2024 11:40am ARM (anorectal malformation) acute December 24, 2024 11:40am 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 December 24, 2024 11:40am History of miscarriage, currently acute December 24 11:40am Hx of maternal blood transfusion, currently acute December 24, 2024 11:40am Hypothyroidism affecting acute December 24, 2024 11:40am In vitro fertilization acute 2024 11:40am acute December 24, 2024 11:40am Spotting affecting in first trimester acute December 24, 2024 11:40am Supervision of high-risk acute December 24, 2024 11:40am UTI (urinary tract infection) during acute December 24, 2024 11:40am Congenital duplication of vagina chronic December 24, 2024 11:40am Rectal atresia chronic December 24, 2024 11:40am Recto-vaginal fistula chronic Dec 11:40am Tethered cord chronic December 24, 025 11:40am Advanced maternal age (AMA) in acute January 20, 025 3:23pm Anxiety and depression acute 2024 3:23pm ARM (anorectal malformation) acute January 20, 2025 3:23pm 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 January 20, 2025 3:23pm History of miscarriage, currently acute January 20, 2 025 3:23pm Hx of maternal blood transfusion, currently acute January 20, 2025 3:23pm Hypothyroidism affecting acute January 20, 2025 3:23pm In vitro fertilization acute 2024 3:23pm acute January 20 3:23pm Spotting affecting in first trimester acute January 20, 2025 3:23pm Supervision of high-risk acute January 20, 2025 3:23pm UTI (urinary tract infection) during acute January 20, 2025 3:23pm Congenital duplication of vagina chronic January 20, 2025 3:23pm Rectal atresia chronic January 3:23pm Recto-vaginal fistula chronic Jan 3:23pm Tethered cord chronic January 20, 2025 3:23pm Advanced maternal age (AMA) in acute February 9:02am Anxiety and depression acute pt2024 9:02am ARM (anorectal malformation) acute February 19, 025 9:02am 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 February 19 025 9:02am History of miscarriage, currently acute February 9:02am Hx of maternal blood transfusion, currently acute February 19, 025 9:02am Hypothyroidism affecting acute February 19, 025 9:02am In vitro fertilization acute Se pt2024 9:02am acute February 19, 2025 9:02am Spotting affecting in first trimester acute February 19, 025 9:02am Supervision of high-risk acute February 19, 9:02am UTI (urinary tract infection) during acute February 19, 025 9:02am Congenital duplication of vagina chronic February 19, 9:02am Rectal atresia chronic February 19, 2025 9:02am Recto-vaginal fistula chronic Sep 2024 9:02am Tethered cord chronic February 192024 9:02am [facility] Work Phone: 1(779) 461-357104-29-2025 Evaluation note* Diagnosis Onset Date Resolution Status Admit Date Advanced maternal age (AMA) in acute October 14, 2024 9:01am Anxiety and depression acute Ap 2024 9:01am 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 October 14, 2024 9:01am History of miscarriage, currently acute October 14 9:01am Hx of maternal blood transfusion, currently acute October 14, 2024 9:01am Hypothyroidism affecting acute October 14, 2024 9:01am In vitro fertilization acute Ap 2024 9:01am acute October 14, 9:01am Supervision of high-risk acute October 14, 2024 9:01am Advanced maternal age (AMA) in acute October 24, 2024 11 :26am Anxiety and depression acute Ma 2024 11:26am 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 October [...] 24, 2024 11:26am Congenital duplication of uterus chr onic October 24, 2024 11:26am Congenital duplication of vagina chr onic October 24, 2024 11:26am 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 24, 2024 11:26am Hydrosalpinx chronic October 24 11:26am Imperforate anus chronic October 24, 2024 11:26am Rectal atresia chronic October 24 11:26am Recto-vaginal fistula chronic October 24, 2024 11:26am Tethered cord chronic October 24 11:26am [facility] Work Phone: 1(523) 177-606804-29-2025 Evaluation note* Diagnosis Onset Date Resolution Status Admit Date Advanced maternal age (AMA) in acute October 14, 2024 9:01am Anxiety and depression acute Ap 2024 9:01am 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 October 14, 2024 9:01am History of miscarriage, currently acute October 14 9:01am Hx of maternal blood transfusion, currently acute October 14, 2024 9:01am Hypothyroidism affecting acute October 14, 2024 9:01am In vitro fertilization acute Ap 2024 9:01am acute October 14 9:01am Supervision [...] of back resolved October 30, 2024 9:03am [facility] Work Phone: 1(820) 106-374404-29-2025 Evaluation note* Diagnosis Onset Date Resolution Status [...] 11:26am Lipoma of back resolved October 24 025 11:26am Advanced maternal age (AMA) in [...] cord chronic November 06, 2 025 2:01pm [facility] Work Phone: 1(772) 243-379004-29-2025 Evaluation note* Diagnosis Onset Date Resolution Status Admit Date Advanced maternal age (AMA) in acute October 14, 2024 9:01am Anxiety and depression acute Ap ril 2024 9:01am 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 October 14, 2024 9:01am History of miscarriage, currently acute October 14 025 9:01am Hx of maternal blood transfusion, [...] 11:26am Lipoma of back resolved October 24 025 11:26am Advanced maternal age (AMA) in [...] cord chronic November 13, 2 025 8:07am [facility] Work Phone: 1(357) 632-396804-29-2025 Evaluation note* Diagnosis Onset Date Resolution Status Admit Date Advanced maternal age (AMA) in acute October 14, 2024 9:01am Anxiety and depression acute Ap 2024 9:01am 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 October [...] 2024 2 :10pm Anxiety and depression acute Ju 2024 2:10pm 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 Peg 3rd, 2025 2:10pm History of miscarriage, currently acute November 18 2:10pm Hx of maternal blood transfusion, currently acute November 18, 2024 2:10pm Hypothyroidism affecting acute November 18, 2024 2 :10pm In vitro fertilization acute Ju 2024 2:10pm acute November 18, 2024 2:10pm Spotting affecting in first trimester acute November 18, 2024 2 :10pm Supervision of high-risk acute November 18, 2024 2 :10pm VACTERL syndrome acute November 2:10pm Congenital duplication of vagina chr onic November 18, 2024 2:10pm Rectal atresia chronic November 18, 2024 2:10pm Recto-vaginal fistula chronic Tomas 2024 2:10pm Tethered cord chronic November 18, 2 025 2:10pm [facility] Work Phone: 1(240) 535-476604-29-2025 Evaluation note* Diagnosis Onset Date Resolution Status [...] Ap ril 2024 9:01am acute October 14, 20 25 9:01am Supervision of high-risk acute October 14, [...] back resolved October 24, 2 025 11:26am VACTERL syndrome deleted October [...] 2024 2 :10pm In vitro fertilization acute Ju 2024 2:10pm acute November 18, 2024 2:10pm Spotting affecting in first trimester acute November 18, 2024 2 :10pm Supervision of high-risk acute November 18, 2024 2 :10pm Congenital duplication of vagina chr onic November 18, 2024 2:10pm Rectal atresia chronic November 18, 2024 2:10pm Recto-vaginal fistula chronic Tomas e 2024 2:10pm Tethered cord chronic November 18, 2 [...] 2024 2:33pm 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 2:33pm [facility] Work Phone: 1(338) 248-735504-29-2025 Evaluation note* Diagnosis Onset Date Resolution Status Admit Date Advanced maternal age (AMA) in acute October 14, 2024 9:01am Anxiety and depression acute Ap ril 2024 9:01am 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 October 14, 2024 9:01am History of miscarriage, currently acute October 14 025 9:01am Hx of maternal blood transfusion, currently acute October 14, 2024 9:01am Hypothyroidism affecting acute October 14, 2024 9:01am In vitro fertilization acute Ap 2024 9:01am acute October 14 9:01am Supervision [...] 11:26am Lipoma of back resolved October 24 025 11:26am VACTERL syndrome deleted October 24, [...] 8 :07am In vitro fertilization acute Ma 2024 8:07am acute November 13, 2024 8:07am [...] November 18, 2024 2:10pm Recto-vaginal fistula chronic Tomas 2024 2:10pm Tethered cord chronic November 18, 2 [...] 2024 2:33pm 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 2:33pm Advanced maternal age (AMA) in acute December 24, 2024 1 1:40am Anxiety and depression acute ly 2024 11:40am ARM (anorectal malformation) acute December 24, 2024 11:40am 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 December 24, 2024 11:40am History of miscarriage, currently acute December 24 11:40am Hx of maternal blood transfusion, currently acute December 24, 2024 11:40am Hypothyroidism affecting acute December 24, 2024 1 1:40am In vitro fertilization acute Ju ly 2024 11:40am acute December 24, 2024 11:40am Spotting affecting in first trimester acute December 24, 2024 1 1:40am Supervision of high-risk acute December 24, 2024 1 1:40am UTI (urinary tract infection ) during acute December 24, 2024 11:40am Congenital duplication of vagina chr onic December 24, 2024 11:40am Rectal atresia chronic December 24, 2024 11:40am Recto-vaginal fistula chronic Gamaliel y 2024 11:40am Tethered cord chronic December 24, 025 11:40am [facility] Work Phone: 1(585) 564-159604-29-2025 Evaluation note* Diagnosis Onset Date Resolution Status Admit Date Advanced maternal age (AMA) in acute October 14, 2024 9:01am Anxiety and depression acute Ap ril 2024 9:01am 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 October 14, 2024 9:01am History of miscarriage, currently acute October 14 025 9:01am Hx of maternal blood transfusion, currently acute October 14, 2024 9:01am Hypothyroidism affecting acute October 14, 2024 9:01am In vitro fertilization acute Ap 2024 9:01am acute October 14 9:01am Supervision [...] 2024 11 :26am 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 24, 2024 11 :26am Rectal atresia chronic October 24, 2 025 11:26am Recto-vaginal fistula chronic October 24, 2024 11:26am Tethered cord chronic October 24 11:26am Congenital duplication of uterus resolved October 24, 2024 11 :26am Duplicate cervix resolved October 24, 2024 11:26am Hydrosalpinx resolved October 24 11:26am Imperforate anus resolved October 24, 2024 11:26am Lipoma of back resolved October 24, 2 025 11:26am VACTERL syndrome deleted October [...] 30, 2024 9:03am 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 30, 2024 9 :03am Rectal atresia chronic October 30, 2024 9:03am Recto-vaginal fistula chronic October 30, 2024 9:03am Tethered cord chronic October 30, 2 025 9:03am Congenital duplication of uterus resolved October 30, 2024 9 :03am Imperforate anus resolved October 9:03am Lipoma of [...] 06, 2024 2:01pm Congenital duplication of vagina chronic November 06, 2024 2 :01pm Rectal atresia chronic November 06, 2024 2:01pm [...] 8 :07am In vitro fertilization acute Ma 2024 8:07am acute November 13, 2024 8:07am Supervision of high-risk acute November 13, 2024 8 :07am UTI (urinary tract infection ) during acute November 13, 2024 8:07am Congenital duplication of vagina chronic November 13, 2024 8 :07am Rectal atresia chronic November 13, 2024 8:07am [...] 2024 2 :10pm Congenital duplication of vagina chronic November 18, 2024 2 :10pm Rectal atresia chronic November 18, 2024 2:10pm Recto-vaginal fistula chronic Tomas 2024 2:10pm Tethered cord chronic November 18, 2 025 2:10pm 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 2:10pm Advanced maternal age (AMA) in acute November 26, 2024 2:33pm Anxiety and depression acute [facility] 2024 2:33pm ARM (anorectal malformation) acute November 26, 2024 2:33pm 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 November 26, 2024 2:33pm History of miscarriage, currently acute November 26 2:33pm Hx of maternal blood transfusion, currently acute November 26, 2024 2:33pm Hypothyroidism affecting acute November 26, 2024 2:33pm In vitro fertilization acute ne 2024 2:33pm acute November 26 2:33pm Spotting affecting in first trimester acute November 26, 2024 2:33pm Supervision of high-risk acute November 26, 2024 2:33pm UTI (urinary tract infection ) during acute November 26, 2024 2:33pm 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, 2024 2:33pm Rectal atresia chronic November 26, 2024 2:33pm Recto-vaginal fistula chronic Tomas e 2024 2:33pm Tethered cord chronic November 26, 2024 2:33pm 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 2:33pm Advanced maternal age (AMA) in acute December 24, 2024 1 1:40am Anxiety and depression acute ly 2024 11:40am ARM (anorectal malformation) acute December 24, 2024 11:40am 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 December 24, 2024 11:40am History of miscarriage, currently acute December 24 11:40am Hx of maternal blood transfusion, currently acute December 24, 2024 11:40am Hypothyroidism affecting acute December 24, 2024 1 1:40am In vitro fertilization acute ly 2024 11:40am acute December 24, 2024 11:40am Spotting affecting in first trimester acute December 24, 2024 1 1:40am Supervision of high-risk acute December 24, 2024 1 1:40am UTI (urinary tract infection ) during acute December 24, 2024 11:40am Congenital duplication of vagina chronic December 24, 2024 1 1:40am Rectal atresia chronic December 24, 2024 11:40am Recto-vaginal fistula chronic Dec y 2024 11:40am Tethered cord chronic December 24, 025 11:40am Advanced maternal age (AMA) in acute January 20, 2025 3:23pm Anxiety and depression acute Au 2024 3:23pm ARM (anorectal malformation) acute January 20, 2025 3:23pm 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 January 20, 2025 3:23pm History of miscarriage, currently acute January 20, 2 025 3:23pm Hx of maternal blood transfusion, currently acute January 20, 2025 3:23pm Hypothyroidism affecting acute January 20, 2025 3:23pm In vitro fertilization acute Au 2024 3:23pm acute January 20 3:23pm Spotting affecting in first trimester acute January 20, 2025 3:23pm Supervision of high-risk acute January 20, 2025 3:23pm UTI (urinary tract infection ) during acute January 20 3:23pm Congenital duplication of vagina chronic January 20, 2025 3:23pm Rectal atresia chronic January 3:23pm Recto-vaginal fistula chronic Jan us2024 3:23pm Tethered cord chronic January 20, 2025 3:23pm [facility] Work Phone: 1([phone]) 406-175504-24-2025 NoteHistory: Constipation. 7 weeks . Procedure note: A timeout was performed per protocol. The patient's cecostomy tube was exchanged over a wire. The balloon was inflated and the line flushed.[facility] [id number] History of Present illness Narrative* Jesse Edwards CPNP - 10/09/2024 10:00 AM EDT [facility] Urology Clinic Note INFORMANT: SOUMYA Nelson is a 39yo female with a history significant for anorectal malformation (rectovaginal) and tethered cord s/p repair. From a urological perspective, Latonya also has a reported history of bilateral kidney stones and bilateral VUR s/p bilateral ureteral reimplantation (Allyssa, 2000). She was last seen by Urology in [facility] clinic in November 2021 where she [...] I independently reviewed the following studies from [facility]. Renal Ultrasound 10/09/2024 CHART REVIEW In preparation for the care of this patient, I have independently reviewed the past medical recordsavailable to me at the time of the visit which included both [facility] recordsand outside facilities. I have reviewed the [...] [facility] * Lis Wilson DO - 10/09/2024 10:00 AM EDT Informant: patient HPI 39 yo female from [place], [place] () with ARM (rectovaginal) s/p cutback [...] trouble again in September 2019. Lived in [facility] in [place] was directed to Dr. Beck in January of 2020 due to fertility issues with wanting to get by Dr. Sebastian in [employer]. Was having trouble getting catheter in was using a 12F. Was having to lay down to put the catheter in, did not have any is sues with leaking at that time. Revision 05/[address] Marlon Beck in conjunction with gynecology. [employer] couldn't get to left sided fallopian tube [...] visit: 12/01/2021 -PFPT: referral for closer to [facility] to help to decrease sit times -continue [...] I reviewed previous information from other specialties/institutions. 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 HENT: [...] found. Assessment 38 year old female from [place], [place] () with ARM (rectovaginal) s/p cutback [...] -return to care after delivery Jun 2025 Lis Wilson DO, FACS, FASCRS, MS Event Management Consultant [facility] (p) [phone] 35 minutes were spent by the Attending (precepting physician) or Advanced Practice Provider time inthe care of this patient. This includes face to face time and non face to face including the following: Preparing to see the patient (review of tests) Obtaining and/or reviewing separately obtained history Counseling and educating the patient/family/caregiver Ordering medications, tests, or procedures Referring/communicating with other health care navigator Independently interpreting results and communicating results to the patient/family/caregiver Care-coordination * Raquel Lainez MD - 10/09/2024 10:00 AM EDT PEDIATRIC & ADOLESCENT GYNECOLOGY: NEW PATIENT VISIT PATIENT: Latonya Rodarte : 1985 CC: ARM and counseling HPI: Latonya Rodarte is a 39 year female who presents with with herself today to [facility] clinic to see Dr. Wilson. I was asked to see her as [...] complaints--has had Utis. No maternal cardiac anomalies. 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 This is associated with malpresentation and delivery. 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 Pt has a history of tethered cord: d/w pt need for an anesthesia consult at [facility] delivering hospital to assess for regional anesthesia at [...] floor at time of delivery--had d/w Dr. Wilson and wants to pursue elective prior to [...] for obstructive symptoms - Dr. Romero Negron, [facility] HX EXAM UNDER ANESTHESIA 1986 Dr. 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 Jones, [facility] Henson revision, fallopian tube ligation and pelvic CIERA 05/20/2020 Modified cutback anoplasty 1986 Dr. Donald Drew, [facility] Tethered cord repair 1999 [facility] VAGINAL SEPTUM RESECTION 2015 SOCIAL HISTORY: [...] CT Abdomen Pelvis with IV Contrast Order: [id number] Addendum Addendum by Provider, [facility] Hiko on 05/24/2020 7:55 PM EST * * *Final Report* * * * * * SEE BOTTOM OF REPORT FOR ADDENDED TEXT * * * DATE OF EXAM: May 24 2020 6:45PM [facility] 0530 - CT ABD/PEL W IVCON / [...] incision. Lower thorax: Minimal left basilar atelectasis. Public Relations Officer (topogram) images: No additional findings. IMPRESSION: NEW [...] on 05/24/2020 7:28 PM via verbal communication. Poultry Inseminator: PSCB Transcribe Date/Time: May 24 2020 7:52P Dictated by : SVETA VALLECILLO MD This examination was interpreted and the report reviewed and electronically signed by: SVETA VALLECILLO MD on May 24 2020 7:38PM EST This document has been addended by: SVETA VALLECILLO MD on May 24 2020 7:53PM EST Exam End: 12/07/20 18:45 Specimen Collected: 05/24/20 18:45 Last Resulted: [...] Gynecology 10/09/2024 11:30 AM documented in this encounterZanesville City [facility]04-24-2025 Instructions* Patient Instructions* Jesse Edwards CPNP - [...] c- section for management of your Henson Cardiocore: vitality Educational Handouts/Orders Needed: none How to Reach CCPR General Questions: Please use Tetherball or call [phone]. We will respond to [employer] messages and voicemails by the end of the next business day. Urgent Concerns: Week, 8 a.m. to 4:30 p.m. (EST), call [phone]. After hours and weekends, call [phone] and press 0 when prompted to reach our on-call team. SCHEDULING BLOCK documented in this encounterAshtabula General Hospital'Plain[facility] [id number] Note PROCEDURE: US KIDNEY REASON FOR EXAM: [...] calcification. No hydronephrosis. No abnormal pelvic free fluid.[facility] [id number] NotePROCEDURE: US KIDNEY REASON FOR EXAM: Hx: [...] MD on 10/09/2024 8:51 AM Post void residualNationDayton Osteopathic Hospital10-29-2024 Telephone encounter Note* Telephone Encounter - Bernadette Morgan RN - 04/15/2024 2:29 PM EDT Images from the original note were not included. Fax received from [facility] stating they do not carry the Entra Ren Zillah Bags, but do have the [place] Zillah Bags. Also stated they do not have graduated cylinders. Will check with patient on this and fax back to [facility] at [phone] [facility]10-29-2024 Miscellaneous Notes* Telephone Encounter - Bernadette Morgan RN - 04/15/2024 2:29 PM EDT Images from the original note were not included. Fax received from [facility] stating they do not carry the Entra Ren Zillah Bags, but do have the [place] Zillah Bags. Also stated they do not have graduated cylinders. Will check with patient on this and fax back to [facility] at [phone] * Telephone Encounter - Lazara Brice RN [...] was measured at 6.5 cm. A new 12-English, 6 cm in length mini Alex button [...] by 2 different methods. documented in this encounterNationDayton Osteopathic Hospital10-27-2024 Telephone encounter Note* Telephone Encounter - Lazara [...] was measured at 6.5 cm. A new 12-English, 6 cm in length mini Alex button [...] 6.5 cm length by 2 different methods. [facility]10-27-[facility] History of Present illness Narrative* Lazara Brice RN - 04/13/2024 10:24 AM EDT Images from the original note were not included. New DME orders faxed to [facility]. Confirmation received. documented in this encounterZanesville City Hospital10-24-2024 Procedure note* Radiology Note - Tim Gonzalez - 04/10/2024 2:10 PM EDT Patient presents to IR with cecostomy in bee branch. Dr. Jo to remove that tube. [facility]10-24-[facility] Miscellaneous Notes* Radiology Note - Tim Gonzalez - 04/10/2024 2:10 PM EDT Patient presents to IR with cecostomy in bee branch. Dr. Jo to remove that tube. documented in this [facility]10-24-2024 History of Present illness Narrative* Andres Fitzgerald APN - 04/10/2024 10:00 AM EDT Images from the original note were not included. Informant: Pardeep Nelson is a 38 year old female from [place], [place] () with ARM (rectovaginal) s/p cutback [...] trouble again in September 2019. Lived in [facility] in [place] was directed to Dr. Beck in January of 2020 due to fertility issues with wanting to get by Dr. Sebastian in [employer]. Was having trouble getting catheter in was using a 12F. Was having to lay down to put the catheter in, did not have any is sues with leaking at that time. Revision 05/[address] Marlon Beck in conjunction with gynecology. Senior Business Broker couldn't get to left sided fallopian tube [...] complicated by a wound [facility], stool [...] visit: 12/01/2021 -PFPT: referral for closer to [facility] to help to decrease sit times -continue [...] I independently reviewed the following studies from [facility]. Xray abdomen supine CHART REVIEW In preparation for the care of this patient, I have independently reviewed the past medical recordsavailable to me at the time of the visit which included both [facility] recordsand outside facilities. I have reviewed the [...] is a 38 year old female from [facility]) with ARM (rectovaginal) s/p cutback anoplasty and [...] colon. Plan - Continue with once daily hesnon flushes with 500 mL of water, 30 mL of glycerin, and 9 mL of castile soap - Go to IR today for tube exchange - Plan on clinic visit in 6 months for tube exchange and to meet with Uro - Please reach out sooner with questions or concerns documented in this encounterZanesville City Hospital10-24-2024 Instructions* Patient Instructions* Deni Paul RN - [...] sooner with questions or concerns Homecare Company: [facility] Items Needed: Zillah Bags, tube Adaptor (depending on what IR places today), Syringes, split gauze Educational Handouts/Orders Needed: will need spare Mini Alex ordered once we have new size from IR today How to Reach CCPR General Questions: Please use Tetherball or call [phone]. We will respond to [employer] messages and voicemails by the end of the next business day. Urgent Concerns: Weekdays, 8 a.m. to 4:30 p.m. (EST), call [phone]. After hours and weekends, call [phone] and press 0 when prompted to reach our on-call team. SCHEDULING BLOCK CCPR Follow-up/Scheduling Information INSURANCE In Network LTFU TRACK Is patient on LTFU Track:Yes LTFU Track for:BMP BMP Date: 11/2020 LEVEL: 1 REASON FOR VISIT Production Statistical Clerk Follow-up for: BMP BMP Annual TYPE OF VISIT Clinic Visit SCHEDULE NEXT APPOINTMENT When should patient be scheduled: 6 months DIAGNOSIS ARM COLORECTAL PROVIDER Gasior COLORECTAL PRE-VISIT TESTING ABD X-ray CONSULTS Consults with: Urology, Other (see comment) IR for mini alex exchange Urology Provider: RODRI Urology Pre-Visit Testing: CHARLES Urology tests that need Sedation: None SURGERY Is surgery needed? No documented in this encounterZanesville City Hospital10-23-2024 Telephone encounter Note* Telephone Encounter - Marixa Hernandez - 04/09/2024 8:10 AM EDT Pt [place] insurance is active and INN, blocks updated [facility]10-23-2024 Miscellaneous Notes* Telephone Encounter - Marixa Hernandez - 04/09/2024 8:10 AM EDT Pt [place] insurance is active and INN, blocks updated documented in this encounterNationDayton Osteopathic Hospital10-22-2024 Telephone encounter Note* Telephone Encounter - [...] She did upload her insurance cards in [employer], so will have those processed and let her know if there are any issues. [facility]10-22-2024 Miscellaneous Notes* Telephone Encounter - Bernadette Morgan [...] She did upload her insurance cards in [employer], so will have those processed and let [...] surgery needed? No * Telephone Encounter - Bernadette Morgan RN - 04/08/2024 11:44 AM EDT RN called Tete in IR and she is able to get patient in for a tube change on at 1:30. Will have KRAFT MILL OPERATOR update order to reflect the correct way [...] is not administer. Patient also mentioned Dr. Wilson wanted her to see Urology again, so [...] the balloon was inflated. RN to update KRAFT MILL OPERATOR on situation and call IR to see about getting scheduled. Will call patient back once there's an update. Last changed in October From: [employer] <[email or web address]> Sent: Monday, April 08, 2024 9:55 AM To: CCPROnCall <[email or web address]> Subject: Message from Unknown sender ([id number]) Patient calling in letting us know the balloon to her mini-alex popped and her tube came out. From: Latonya Rodarte < > Sent: Monday, April 08, 2024 10:10 AM To: [facility] <[email or web address]> Subject: Mariama villagomez tube broke Hello, could I have someone call me back today? My tube just broke and fell out of my stomach. My name is Latonya Rodarte date of 1985 If I could have someone call me back [phone] documented in this encounterNatWright-Patterson Medical Center10-22-2024 Telephone encounter Note* Telephone Encounter - Bernadette [...] with: None SURGERY Is surgery needed? No [facility]10-22-2024 Telephone encounter Note* Telephone Encounter - Bernadette Morgan RN - 04/08/2024 11:44 AM EDT RN called Tete in IR and she is able to get patient in for a tube change on at 1:30. Will have KRAFT MILL OPERATOR update order to reflect the correct way [...] is not administer. Patient also mentioned Dr. Wilson wanted her to see Urology again, so wanted to know if she could seethem on or if she should wait until her next visit. RN to check with team and call patientback. [facility]10-22-20[facility] Telephone encounter Note* Telephone Encounter - [...] the balloon was inflated. RN to update KRAFT MILL OPERATOR on situation and call IR to see about getting scheduled. Will call patient back once there's an update. Last changed in October From: [employer] Sent: Monday, April 08, 2024 9:55 AM To: [facility]ENTERROnCall Subject: Message from Unknown sender ([phone]) Patient calling in letting us know the balloon to her mini-alex popped and her tube came out. From: Latonya Rodarte Sent: Monday, April 08, 2024 10:10 AM To: [facility] Subject: Mariama villagomez tube broke Hello, could I have someone call me back today? My tube just broke and fell out of my stomach. My name is Latonya Rodarte date of 1985 If I could have someone call me back [phone] [facility]08-23-2023 NoteHNO ID: [id number] Author: Mackenzie Duran MD Service: ? Author [...] MD PGY 6 Reproductive Endocrinology and Infertility FellowCleveland Clinic Children'S [facility]08-23-2023 History of Present illness Narrative* Mackenzie Duran [...] Endocrinology and Infertility Fellow documented in this encounterSouthern [facility] Center08-07-2023 NoteHNO ID: [id number] Author: Freda Gerard RN Service: ? Author [...] Freda Gerard RN January 22, 2023 1:42 PMCAkron Children's Hospital08-07-2023 History of Present illness Narrative* Freda [...] 22, 2023 1:42 PM documented in this encounterSouthern Ohio Medical Center07-31-2023 NoteHNO ID: [id number] Author: Freda Gerard RN Service: ? Author Type: ? Type: Progress Notes Filed: 01/15/2023 4:34 PM Note Text: Called patient with plan, take letrozole the next 4 days and return to clinic on 01/22. Patient states understanding, no further questions at this time. Freda Gerard RNCleveland Clinic Children'S Hospital For Rehabilitation07-31-2023 History of Present illness Narrative* Freda Gerard [...] nursing. Aydee More RN documented in this encounterSouthern Ohio Medical Center07-31-2023 NoteHNO ID: [id number] Author: Aydee More RN Service: ? Author [...] stay to meet with nursing. Aydee More RNCleveland Clinic Children'S Hospital For Rehabilitation07-28-2023 Miscellaneous Notes* Telephone Encounter - Freda Gerard [...] speaking with nurse freda documented in this encounterCleveland [id number] Miscellaneous Notes* Telephone Encounter - Freda Gerard RN - 12/14/2022 2:44 PM EDT Called patient to advise her we have sent letrozole to the pharmacy she requested. Patient states understanding. Freda Gerard RN December 14, 2022 2:45 PM * Telephone Encounter - Ramila Dias - 12/14/2022 12:58 PM EDT Pt would like her prescription sent to the right [facility] [place] ,speaking with Nurse Freda documented in this encounterSouthern Ohio Medical Center06-27-2023 Miscellaneous Notes* Addendum Note - Adri Baires [...] , please follow up documented in this encounterSouthern Ohio Medical Center06-08-2023 NoteHNO ID: [id number] Author: Freda Gerard RN Service: ? Author [...] Freda Gerard RN November 23, 2022 3:11 [facility]06-08-2023 History of Present illness Narrative* Freda Gerard [...] nursing. Aydee More RN documented in this encounterSouthern Ohio Medical Center06-08-2023 NoteHNO ID: [id number] Author: Aydee More RN Service: ? Author [...] stay to meet with nursing. Aydee More RNCleveland Clinic Children'S Hospital For Rehabilitation06-07-2023 NoteHNO ID: [id number] Author: Freda Gerard RN Service: ? Author [...] Freda Gerard RN November 22, 2022 2:01 [facility]06-07-2023 History of Present illness Narrative* Freda Gerard [...] 22, 2022 2:01 PM documented in this encounterSouthern Ohio Medical Center06-06-2023 Miscellaneous Notes* Telephone Encounter - Freda Gerard RN - 11/21/2022 3:22 PM EDT Patient has appointment scheduled tomorrow at 7:45. Freda Gerard RN November 21, 2022 3:23 PM * Telephone Encounter - Felicia Ricketts Pss - 11/21/2022 11:01 AM EDT Patient called did not see appt for tomorrow, scheduled monitoring appt for her. documented in this encounterSouthern Ohio Medical Center06-01-2023 History of Present illness Narrative* Freda Gerard RN - 11/16/2022 2:16 PM EDT Called patient with plan per flowsheet, start letrozole, start FSH day 5, return to clinic 11/22. Patient states understanding, no further questions at this time. Detailed Start[employer] Weekendt message sent, requestsent for appointment 11/22 at 0700 Freda Gerard RN November 16, 2022 2:21 PM documented in this encounterSouthern Ohio Medical Center05-31-2023 Miscellaneous Notes* Addendum Note - Wil Luke MD - 11/15/2022 3:22 PM EDTAddended by: WIL LUKE on: 11/15/2022 03:22 PM Modules accepted: Orders documented in this encounterSouthern Ohio Medical Center05-31-2023 History of Present illness Narrative* Freda Gerard [...] 15, 2022 3:50 PM documented in this encounterSouthern Ohio Medical Center05-17-2023 Miscellaneous Notes* Telephone Encounter - Freda Gerard [...] speaking with nurse freda documented in this encounterSouthern Ohio Medical Center05-02-2023 Miscellaneous Notes* Telephone Encounter - Freda Gerard [...] instead. Patient would prefer letrozole. Ordered to [facility]. Patient will call with her period. Freda Gerard RN October 17, 2022 2:36 PM * Telephone Encounter - Kasia Lund Pss - 10/17/2022 9:13 AM EDT Pt states meds are on back order documented in this encounterSouthern Ohio Medical Center03-23-2023 History of Present illness Narrative* Freda Gerard [...] nursing. Aydee More RN documented in this encounterSouthern Ohio Medical Center03-20-2023 History of Present illness Narrative* Freda Gerard [...] 04, 2022 2:24 PM documented in this encounterSouthern Ohio Medical Center03-14-2023 History of Present illness Narrative* Freda Gerard [...] 29, 2022 7:57 AM documented in this encounterSouthern Ohio Medical Center03-13-2023 Miscellaneous Notes* Telephone Encounter - Freda Gerard RN - 08/28/2022 4:47 PM EDT Returned phone call. Period started today, she will come in to baseline tomorrow at 0715. She called [facility] pharmacy today, medication will be delivered tomorrow or Sunday. Request sent for appointment tomorrow. Freda Gerard RN August 28, 2022 4:49 PM * Telephone Encounter - Felicia Ricketts Pss - 08/28/2022 10:07 AM EDT Patient states cycle should start tomorrow and she has not heard from pharmacy, please call patient. documented in this encounterSouthern Ohio Medical Center03-13-2023 Miscellaneous Notes* Telephone Encounter - Freda Gerard [...] pt for next steps. Speaking with Nurse Freda documented in this encounterSouthern Ohio Medical Center03-08-2023 Miscellaneous Notes* Telephone Encounter - Ginny Jackson [...] with full doses. Will order medications to [facility] pharmacy, sent chart to financial for clearance. She will be a natural start, will schedule once patient pays. Freda Gerard RN August 23, 2022 2:42 PM * Telephone Encounter - Kasia Lund Pss - 08/22/2022 3:51 PM EST Pt wants to know if she can order her injections documented in this encounterSouthern Ohio Medical Center03-02-2023 History of Present illness Narrative* Khang Mercado - 08/17/2022 10:02 AM EST IVF freeze all cycle. No embryo was frozen. Khang Mercado August 17, 2022 10:02 AM documented in this encounterSouthern Ohio Medical Center03-02-2023 Miscellaneous Notes* Telephone Encounter - Khang Mercado - 08/17/2022 8:43 AM EST Patient called by lab to give update on embryo. Let patient know that her one embryo has stop developing. Nothing was frozen from this cycle. Khang Mercado August 17, 2022 8:43 AM documented in this encounterSouthern Ohio Medical Center03-01-2023 Miscellaneous Notes* Telephone Encounter - Khang Mercado [...] 15, 2022 8:44 AM documented in this encounterSouthern Ohio Medical Center02-24-2023 History of Present illness Narrative* Negrita Espinosa IVF Tech - 08/11/2022 12:33 PM EST Retrieval procedure performed. Detailed notes can be found in the paper chart in the [facility]- INSURANCE ADMINISTRATIVE ASSISTANT Office. Negrita Espinosa IVF Tech documented in this encounterSouthern Ohio Medical Center02-24-2023 Note* [facility] ULTRASOUND GUIDED PROCEDURE (08/11/2022 4:44 AM EST) Anatomical Region Laterality Modality Other 08/11/2022 4:44 AM EST Narrative 08/11/2022 12:22 PM EST Indication Retrieval Impression Follicles noted Recommendations Continue with retrieval History General History Other: known didelphic uterus Method Transvaginal ultrasound examination Performed By: Read By: Wil Luke M.D. Mackenzie Duran MD [facility]02-22-2023 History of Present illness Narrative* Freda Gerard RN - 08/09/2022 2:01 PM EST Called patient with trigger plan. Patient will trigger tonight at 11PM, labs tomorrow, retrieval Sunday. Patient states understanding, will come in at 9:30 for a scan before retrieval. Appointment request sent for labs tomorrow. No further questions at this time, detailed [employer] Weekendt message sent. Freda Gerard RN August 09, [...] 09, 2022 7:52 AM documented in this encounterSouthern Ohio Medical Center02-21-2023 History of Present illness Narrative* Essence Adkins [...] physician, see flowsheet fordetails. MyChart message sent. Instructions given. Patient denies any questions or concerns. Message sent to scheduling pool for next appt. Essence Adkins RN August 08, 2022 1:21 PM documented in this encounterSouthern Ohio Medical Center02-20-2023 Miscellaneous Notes* Addendum Note - Ysabel Scott MD - 08/07/2022 3:36 PM ESTAddended by: YSABEL SCOTT on: 08/07/2022 03:36 PM Modules accepted: Orders * Addendum Note - Freda Gerard RN - 08/07/2022 1:55 PM ESTAddended by: FREDA GERARD RN on: 08/07/2022 01:55 PM Modules accepted: Orders documented in this encounterSouthern Ohio Medical Center02-20-2023 History of Present illness Narrative* Freda Gerard [...] 07, 2022 1:49 PM documented in this encounterSouthern Ohio Medical Center02-20-2023 History of Present illness Narrative* Aiyana Harman APRN.CNP - 08/07/2022 7:28 AM EST orders filed for labs today. Aiyana Harman APRN.CNP August 07, 2022 7:30 AM documented in this encounterSouthern Ohio Medical Center02-16-2023 Miscellaneous Notes* Telephone Encounter - Freda Gerard [...] speaking with nurse freda documented in this encounterSouthern Ohio Medical Center02-16-2023 History of Present illness Narrative* Aydee More [...] nursing. Aydee More RN documented in this encounterSouthern Ohio Medical Center02-15-2023 History of Present illness Narrative* Freda Gerard [...] 02, 2022 1:57 PM documented in this encounterSouthern Ohio Medical Center02-07-2023 History of Present illness Narrative* Freda Gerard [...] 25, 2022 1:26 PM documented in this encounterSouthern Ohio Medical Center02-06-2023 Miscellaneous Notes* Telephone Encounter - Freda Gerard [...] Speaking with Nurse Freda documented in this encounterSouthern Ohio Medical Center01-19-2023 History of Present illness Narrative* Freda Gerard [...] nursing. Aydee More RN documented in this encounterSouthern Ohio Medical Center12-28-2022 Miscellaneous Notes* Telephone Encounter - Freda Gerard [...] 14, 2022 2:38 PM documented in this encounterSouthern Ohio Medical Center12-28-2022 Miscellaneous Notes* Telephone Encounter - Freda Gerard RN - 06/14/2022 2:00 PM EST Returned phone call, left voicemail message for patient to call back at her convenience. Freda Gerard RN June 14, 2022 2:01 PM documented in this encounterSouthern Ohio Medical Center12-19-2022 Consult note* Soren Sebastian MD - 06/05/2022 1:11 PM EST VIRTUAL VISIT PROGRESS NOTE This is a virtual visit using [employer] video visit. It required patient-provider interaction for [...] after surgery Discussed to outcome of our PER DIEM/VERENICE portion of the surgery: 1 tube excised. [...] after surgery Discussed to outcome of our PER DIEM/VERENICE portion of the surgery: 1 tube excised. [...] after surgery *Discussed to outcome of our PER DIEM/VERENICE portion of the surgery: 1 tube excised. 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 [...] after surgery Discussed to outcome of our PER DIEM/VERENICE portion of the surgery: 1 tube excised. [...] after surgery *Discussed to outcome of our PER DIEM/VERENICE portion of the surgery: 1 tube excised. [...] Contreras: Discuss medical insurance benefits and likely [id number]-[id number] costs of IVF. IVF nurse coordinator: Schedule [...] hysteroscopy or SIS prior to FET Xochitl C: Discuss medical insurance benefits and likely hpi-ob-[id number] costs of IVF. IVF nurse coordinator: Schedule [...] Notations from previous visit: Records release from [place] physicians Likely laparoscopy bilateral salpingectomy prior to IVF I spent a total of 28 minutes on the date of the service which included preparing to see the patient, zqqq-vq-rjod patient care, completing clinical documentation, obtaining and/or reviewing separately obtained history, counseling and educating the patient/family/caregiver, ordering medications, darcy ts, or procedures, communicating with other HCPs (not separately reported), independently interpreting results (not separately reported), and communicating results to the patient/family/caregiver. Soren Sebastian MD June 05, 2022 1:12 PM documented [facility] Miscellaneous Notes* Telephone Encounter - Freda Gerard [...] her IVF cycle medications documented in this encounterSouthern [facility]22 Miscellaneous Notes* Telephone Encounter - Freda Gerard [...] 11:52 AM * Telephone Encounter - Felicia Ricketts Pss - 05/02/2022 9:23 AM EST Stopped injections last night and having a lot of bleeding, still having bleeding. documented in this encounterSouthern [facility]11-14-2022 History of Present illness Narrative* Freda Gerard [...] 01, 2022 8:06 AM documented in this encounterSouthern [facility]11-07-2022 Instructions* Patient Instructions* Freda Gerard RN - 04/24/2022 8:37 AM EST documented in this encounterSouthern [facility]11-07-[facility] History of Present illness Narrative* Freda Gerard [...] 24, 2022 1:59 PM documented in this encounterSouthern [facility]11-04-2022 Miscellaneous Notes* Telephone Encounter - Kaila Smith RN - 04/21/2022 4:22 PM EDT Called pt by listed phone number. Pt CD1 today. Scheduled for natural baseline appointment for Sunday04/24/22 at 0715. Kaila Smith RN April 21, 2022 4:23 PM * Telephone Encounter - Felicia Almaguer - 04/21/2022 2:34 PM EDT Patient is doing a natural cycle. documented in this encounterSouthern [facility]10-25-2022 Miscellaneous Notes* Telephone Encounter - Freda Gerard [...] call to follow up documented in this encounterSouthern [facility] Center10-24-2022 Miscellaneous Notes* Telephone Encounter - Freda Gerard RN - 04/10/2022 10:54 AM EDT Returned phone call. Left voicemail to call back. Freda Gerard RN April 10, 2022 10:55 AM * Telephone Encounter - Kasia Lund Pss - 04/10/2022 9:19 AM EDT Freda villa has ques on her meds documented in this encounterSouthern [facility]09-27-2022 Miscellaneous Notes* Telephone Encounter - Freda Gerard RN - 03/14/2022 1:43 PM EDT Called patient, advised her to take her estrace now, and the other 2 at bedtime. Patient states understanding. Freda Gerard RN March 14, 2022 1:44 PM * Telephone Encounter - Felicia Ricketts Pss - 03/14/2022 12:48 PM EDT Should she take all of them tonight, needs guidance. documented in this encounterSouthern [facility] Center09-15-2022 Procedure note* Ysabel Scott MD - 03/02/2022 4:19 PM EDT WHI VERENICE TRANSFER PROCEDURE NOTE Date: 03/02/2022 Primary Proceduralist: Soren Sebastian MD Catholic Priest(s): Ysabel Scott MD Informed Consent: Consents and Labels Consent Signed: Informed Consent obtained and on the chart Labels Verified With Patient: Yes Indications: Latonya Rodarte, is a 36 year old female here today for Embryo Transfer. [place] Protocol: UNIVERSAL PROTOCOL / SAFETY CHECKLIST Procedure [...] 2022 TIME: 4:19 PM documented in this encounterSouthern [facility] Center09-15-2022 History of Present illness Narrative* Ruth Ann Ernst - 03/02/2022 2:01 PM EDT Embryo Transfer procedure performed. Detailed notes can be found in the paper chart in the [facility] - INSURANCE ADMINISTRATIVE ASSISTANT Office. Ruth Ann Ernst documented in this encounterSouthern [facility] Center09-15-2022 Instructions* Patient Instructions* Lyn Mckay RN - 03/02/2022 1:57 PM EDT POST EMBRYO TRANSFER INSTRUCTIONS You will need to have your blood drawn for Quantitative HCG on 03/16/22 at [place]. You can expectto be called the afternoon of your blood draw with your test results. If for any reason that date or location is changed, please call [phone] to inform us. Continue your current medications [...] If you have any questions, please call [phone]. documented in this encounterSouthern [facility] Center09-09-2022 History of Present illness Narrative* Anahy Velarde MD - 02/24/2022 1:24 PM EDT Called patient with plan for transfer. Went over medications and timing. Detailed [employer] message sent. Patient has no questions. Freda [...] nursing. Aydee More RN documented in this encounterSouthern [facility] Center09-07-2022 History of Present illness Narrative* Freda Gerard [...] 22, 2022 7:43 AM documented in this encounterSouthern [facility] Center08-29-2022 Miscellaneous Notes* Telephone Encounter - Freda Gerard RN - 02/13/2022 4:44 PM EDT Called patient, she started estrace on 02/10. Lining check scheduled for 02/22. Thaw plan turned in. Request sent for appointment on 02/22. Freda Gerard RN * Telephone Encounter - Felicia Almaguer - 02/10/2022 3:35 PM EDT Calling regarding frozen embryo transfer. documented in this encounterSouthern [facility] Center08-29-2022 Miscellaneous Notes* Telephone Encounter - Paris Villarreal - 02/13/2022 2:27 PM EDT Pt reporting cycle start 02/10 for FET documented in this encounterSouthern [facility] Center08-11-2022 History of Present illness Narrative* Freda Gerard RN - 01/26/2022 12:05 PM EDT [...] 26, 2022 2:14 PM documented in this encounterSouthern [facility] Center08-11-2022 Miscellaneous Notes* Telephone Encounter - Paris Villarreal - 01/26/2022 11:09 AM EDT Pt dropped off FET thaw plan this morning and just wants to double check that the nurses got it documented in this encounterSouthern [facility] Center07-11-2022 Miscellaneous Notes* Telephone Encounter - Jen Cruz - 12/26/2021 2:33 PM EDT Unable to reach patient by phone, sent [employer] message with instructions. Medicaition orders pended. Lining check orders pended. Checklist updated. Jen Cruz December 26, 2021 2:33 PM * Telephone Encounter - Paris Villarreal - 12/26/2021 10:16 AM EDT Pt had hysteroscopy last week and now needs meds ordered for FET. Pt says she usually talks to Freda documented in this encounterSouthern [facility] Center07-06-2022 Procedure note* Wil Luke MD - 12/21/2021 [...] team. Wil Luke MD documented in this encounterSouthern [facility] Center07-06-2022 History of Present illness Narrative* Birgit Hale [...] for FET Test: Negative documented in this encounterSouthern [facility] Center07-05-2022 Miscellaneous Notes* Telephone Encounter - Freda Gerard [...] follow up with patient. documented in this encounterSouthern [facility] Center06-15-2022 Miscellaneous Notes* Telephone Encounter - Freda Gerard [...] discuss setting up fet documented in this encounterSouthern [facility] Center05-01-2022 History of Present illness Narrative* Geno Fatima - 10/16/2021 9:09 AM EDT IVF freeze all cycle. Geno Fatima October 16, 2021 9:09 AM documented in this encounterSouthern [facility] Center04-25-2022 History of Present illness Narrative* Sasha Stoddard - 10/10/2021 12:39 PM EDT Retrieval procedure performed. Detailed notes can be found in the paper chart in the [facility]- INSURANCE ADMINISTRATIVE ASSISTANT Office. Sasha Stoddard documented in this [facility] History of Present illness Narrative* Katrina Mcclain RN - 10/09/2021 11:37 AM EDT Patient had post trigger labs done today. Will be reviewed by EGR. Plan for retrieval tomorrow. Katrina Mcclain RN October 09, 2021 11:43 AM documented in this [facility]04[facility] History of Present illness Narrative* Katrina [...] 08, 2021 1:54 PM documented in this encounterSouthern [facility] Center04-22-2022 Miscellaneous Notes* Telephone Encounter - Freda Gerard [...] uses [facility] for medication. documented in this encounterSouthern [facility] Center04-22-2022 History of Present illness Narrative* Aiyana Harman APRN.CNP - 10/07/2021 7:31 AM EDT orders filed for e2 for 10-08-21. Aiyana Harman APRN.CNP October 07, 2021 7:32 AM documented in this encounterSouthern [facility] Center04-21-2022 History of Present illness Narrative* Freda Gerard [...] 06, 2021 1:50 PM documented in this encounterSouthern [facility] Center04-21-2022 History of Present illness Narrative* Aiyana Harman APRN.CNP - 10/06/2021 6:54 AM EDT orders filed for Prog and US exam. Aiyana Harman APRN.CNP October 06, 2021 6:56 AM documented in this encounterSouthern [facility] Center04-20-2022 History of Present illness Narrative* Freda Gerard [...] 05, 2021 1:37 PM documented in this encounterSouthern [facility] Center04-17-2022 History of Present illness Narrative* Aydee More [...] 02, 2021 11:37 AM documented in this encounterSouthern [facility] Center04-13-2022 History of Present illness Narrative* Freda Gerard [...] and return to clinic on Sunday. Sent [employer] message, requested appointment for Sunday around 7:15 Freda Gerard RN September 28, 2021 1:57 PM documented in this encounterSouthern [facility]04-11-2022 History of Present illness Narrative* Freda Gerard [...] 26, 2021 1:31 PM documented in this encounterSouthern [facility] Center04-08-2022 Miscellaneous Notes* Telephone Encounter - Megan Cabrera - 09/23/2021 8:12 AM EDT Patient paid me for $750 for ultrasounds and $150 for nurse visit * Telephone Encounter - Felicia Almaguer - 09/22/2021 10:28 AM EDT Please follow up with patient. documented in this encounterSouthern [facility] Center04-07-2022 History of Present illness Narrative* Aiyana Harman APRN.CNP - 09/22/2021 7:03 AM EDT orders filed for ivf monitoring. Aiyana Harman APRN.CNP September 22, 2021 7:03 AM [facility] Diagnosis Female infertility- Primary Female infertility of unspecified origin documented in this encounter [facility]* Diagnosis Female infertility- Primary Female infertility of unspecified origin documented in this encounter [facility]* Diagnosis Female infertility Female infertility of unspecified origin documented in this encounter [facility]* Diagnosis Female infertility- Primary Female infertility of unspecified origin documented in this encounter [facility] note* Diagnosis Female infertility Female infertility of unspecified origin documented in this encounter [facility] note* Diagnosis Female infertility- Primary Female infertility of unspecified origin documented in this encounter [facility] note* Diagnosis Female infertility Female infertility of unspecified origin documented in this encounter [facility]* Diagnosis Encounter for fertility testing- Primary Fertility testing Female infertility Female infertility of unspecified origin documented in this encounter [facility]* Diagnosis Encounter for fertility testing Fertility testing Female infertility Female infertility of unspecified origin documented in this encounter [facility] note* Diagnosis Female infertility- Primary Female infertility of unspecified origin [facility] [place] Diagnosis Encounter for fertility testing- Primary Fertility testing documented in this encounter [facility] note* Diagnosis Fertility testing- Primary Pre-procedural laboratory examination documented in this encounter [facility] note* Diagnosis Primary female infertility- Primary Female infertility of unspecified origin documented in this encounter [facility] note* Diagnosis Female infertility- Primary Female infertility of unspecified origin documented in this encounter [facility] note* Diagnosis Primary female infertility Female infertility of unspecified origin documented in this encounter [facility] note* Diagnosis Female infertility- Primary Female infertility of unspecified origin documented in this encounter [facility] note* Diagnosis Primary female infertility- Primary Female infertility of unspecified origin documented in this encounter [facility] note* Diagnosis examination or test, unconfirmed- Primary Infertility, female Female infertility of unspecified origin documented in this encounter [facility] note* Diagnosis Encounter for fertility testing- Primary Fertility testing documented in this encounter [facility] note* Diagnosis Female infertility- Primary Female infertility of unspecified origin documented in this encounter [facility] note* Diagnosis Female infertility- Primary Female infertility of unspecified origin Encounter for fertility testing Fertility testing documented in this encounter [facility] note* Diagnosis Female infertility- Primary Female infertility of unspecified origin Encounter for fertility testing Fertility testing documented in this encounter 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 note* Diagnosis Female infertility- Primary Female infertility of unspecified origin documented in this encounter [facility] note* Diagnosis Encounter for fertility testing Fertility testing Female infertility Female infertility of unspecified origin documented in this encounter [facility] note* Diagnosis Female infertility Female infertility of unspecified origin documented in this encounter [facility] note* Diagnosis Female infertility- Primary Female infertility of unspecified origin documented in this encounter [facility] note* Diagnosis Female infertility Female infertility of unspecified origin documented in this encounter [facility] note* Diagnosis Female infertility Female infertility of unspecified origin documented in this encounter [facility] note* Diagnosis Female infertility- Primary Female infertility of unspecified origin documented in this encounter [facility] note* Diagnosis Female infertility Female infertility of unspecified origin documented in this encounter [facility] note* Diagnosis Female infertility Female infertility of unspecified origin documented in this encounter [facility] note* Diagnosis Female infertility Female infertility of unspecified origin documented in this encounter [facility] note* Diagnosis Female infertility- Primary Female infertility of unspecified origin [facility] [place] [facility]* Diagnosis Female infertility- Primary Female infertility of unspecified origin [facility] [place] [facility]* Diagnosis Female infertility Female infertility of unspecified origin [facility] [place]* Diagnosis Female infertility- Primary Female infertility of unspecified origin Encounter for fertility testing Fertility testing documented in this [facility] [place] [facility]* Diagnosis Female infertility- Primary Female infertility of unspecified origin documented in this [facility] [place] [facility]* Diagnosis Female infertility- Primary Female infertility of unspecified origin Encounter for fertility testing Fertility testing [facility] [place] [facility]* Diagnosis Encounter for fertility testing Fertility testing documented in this encounter [facility] note* Diagnosis Treatment plan provided- Primary documented in this encounter [facility]* Diagnosis Encounter for fertility testing Fertility testing documented in this encounter [facility] note* Diagnosis Encounter for fertility testing Fertility testing documented in this encounter 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 Other constipation History of antegrade continence enema procedure documented in this encounter [facility] [place] [facility]* Diagnosis 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 Other constipation History of antegrade continence enema procedure documented in this encounter [facility] [place] [facility]* Diagnosis 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 documented in this encounter [facility] [place] [facility]* Diagnosis 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 documented in this encounter [facility] [place] [facility]* Diagnosis 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 Incomplete defecation Incomplete emptying of bladder Incomplete bladder emptying documented [facility] [place] [facility]* Diagnosis 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 Other constipation History of antegrade continence enema procedure documented in this encounter [facility] [place] [facility]* Diagnosis Encounter for anatomic survey- Primary Advanced maternal age, 1st , first trimester Encounter for screening for risk of pre-term labor 18 weeks gestation of state, incidental AMA (advanced maternal age) multigravida 35+, second trimester Encounter for ultrasound to assess interval growth of fetus Encounter for follow-up ultrasound of anatomy [facility] Diagnosis 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 Recurrent UTI Urinary tract infection, site not specified 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 [facility] Diagnosis Encounter for follow-up ultrasound of anatomy- Primary Encounter for ultrasound to assess interval growth of fetus 22 weeks gestation of state, incidental AMA (advanced maternal age) multigravida 35+, second trimester [facility] Diagnosis resulting from in vitro fertilization, antepartum- Primary [facility] [place] [facility]* Diagnosis cardiac anomaly complicating , antepartum, single gestation- Primary resulting from in vitro fertilization, antepartum 24 weeks gestation of state, incidental [facility] Author Kaila Paige [facility] Note Date/Time October 30, 2024 9:43a m [facility] [address], [address] [place] [address] OFFICE VISIT Date of Service: 10/30/24 MR#: [id number] Acct: [id number] Name: LATONYA RODARTE Rep #: [id number] : 1985 Provider: Dr. Lane Paige MD Age/Sex: 39/F [place] [facility] [place]: Signed Intake Vital Signs 10/24/24 11:42 10/30/24 09:05 10/30/24 09:10 Height 5 ft 4 in 5 ft 4 in 5 ft 4 in Weight: 165 lb 4 oz BMI 28.3 BP 116/70 Intake Visit Reasons: 10W 1D [employer] CK per JV Palliative Nurse Required: No Is patient in pain?: No Allergies ampicillin Allergy (Verified 10/30/24 09:05) Hives Medications ?Medication ?Instructions ?Recorded ?Confirmed ?Type Lactobacillus 25 billion cap PO 10/14/24 10/30/24 His tory cell-Bifido 25 billion bbti-IUE-ocqzz capsule aspirin 81 mg tablet,delayed 81 mg [...] (Updated 10/30/24 @ 09:[address] Kaila Paige MD) History of ESBL E. 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 Work Phone: Progress note Author Kaila Paige [facility] Note Date/Time February 19, 2025 9:53am [facility] [address] [place] [address], [address] [place] [address] OFFICE VISIT Date of Service: 02/19/25 MR#: [id number] Acct: [id number] Name: LATONYA RODARTE Rep #: [id number] : 1985 Provider: Dr. Lane Paige MD Age/Sex: 39/F [place] [facility] [place] [place]: Signed Intake Vital Signs 11/18/24 14:11 01/20/25 15:41 02/19/25 09:08 Height 5 ft 4 in 5 ft 4 in 5 ft 4 in Weight: 177 lb 3 oz BMI 30.4 BP 135/77 H Intake Visit Reasons: 26 WK OB *DOC ONLY Palliative Nurse Required: No Is patient in pain?: No Allergies ampicillin Allergy (Verified 02/19/25 09:10) Hives Medications ?Medication ?Instructions ?Recorded ?Confirmed ?Type Lactobacillus 25 billion cap PO 10/14/24 02/19/25 His tory cell-Bifido 25 billion meqf-SAA-xtglm capsule aspirin 81 mg tablet,delayed 81 mg PO QDAY 10/14/24 History release choline 250 mg tablet 250 mg PO QDAY 10/14/24/10/10 History glycerin (laxative) 5.4 gram/5.4 See Rx Instructions . Route DAILY 10/14/24 02/19/25 History mL rectal solution through stoma with 9ml liqui d castile soap multivitamin no.47-iron fum 27 cap PO 10/14/24 5 History mg-folate no.1 1 mg-dha 300 mg capsule (PNV-DHA) soap ea topical 10/14/24 02/19/25 History levothyroxine 62.5 mcg capsule 62.5 mcg PO QDAY #30 ca ps 11/03/24 02/19/25 Rx sulfamethoxazole 800 1 tab PO QDAY #30 tabs 11/2402/19/25 Rx mg-trimethoprim 160 mg tablet (Bactrim DS) famotidine 20 mg tablet (Pepcid) 20 mg PO BID #60 tabs 02/19/25 02/19/25 Rx Last Menstrual Period: 08/21/24 Zika: Zika [...] 3-4 times per week duration: 15-30 minutes/day sotero/yazidism: None seatbelt use: always do you feel safe at home: Yes 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 Date Name GA/Weeks Outcome Route Bth Weight Infant Gen Labor Lgth Anesthesia Del Locatn Provider FOB Unknown February 25, 2024 4 spontaneous Delivery Date: Last Updated by: Ginny Mcintyre failed IVF transfer HPI 26 WK OB *DOC ONLY Details: LATONYA RODARTE is a 39 year old who presents for routine OB visit. OB Visit WES Calculator Estimated Delivery Date Method Current WG Current Estimate 05/27/25 Conception 26w 1d Expected Delivery Route/Plan requests primary section [...] Dilation -?-?-?-?-?-?-?-?-?-?-?-?- Effaced St Visit Note 10/24/24 -?-?-?-?-?-?-?-?-?-?-?-?- 9w 2d 166 lb 4 oz 111/65 -?-?-?-?-?-?-?-?-?-?-?-?- 185 -?-?-?-?-?-?-?-?-?-?-?-?- JV- crl measurin g 9 weeks 2 days and consistent with day 6 embryo transfer. see HPI for details on visit today. Wants to return in 1 week for heart beat check 10/30/24 -?-?-?-?-?-?-?-?-?-?-?-?- 10w 1d 165 lb 4 oz 116/70 Nega tive -?-?-?-?-?-?-?-?-?-?-?-?- Negative 150 -?-?-?-?-?-?-?-?-?-?-?-?- SM- no vb crampi ng 11/13/24 -?-?-?-?-?-?-?-?-?-?-?-?- 12w 1d 167 lb 2 oz 109/64 -?-?-?-?-?-?-?-?-?-?-?-?- 160 -?-?--?-?-?-?-?-?-?-?-?-?- SM- no vb lof lozano ving burning on urination after interoucrse only. some loss of taste and her tongue hurts, no significant whitening of tongue yet. SM- no vb lof crmaping, stop ping hormones. plan CL screening at 16-17 weeks. some dizziness 11/18/24 -?-?-?-?-?-?-?-?-?-?-?-?- 12w 6d 171 lb 126/75 Negative -?-?-?-?-?-?-?-?-?-?-?-?- Negative -?-?-?-?-?-?-?-?-?-?-?-?- -nurse visit t o rule out UA prior to US today for back discomfort and cramping. UA negative. 11/26/24 -?-?-?-?-?-?-?-?-?-?-?-?- 14w 0d 172 lb 109/73 Negative -?-?-?-?-?-?-?-?-?-?-?-?- Negative 160 -?-?-?-?-?-?-?-?-?-?-?-?- JV- patient was reassured by mfm of the bleeding she had. They thought withdrawal bleeding from the non- side of the uterus. She is no longer bleeding. still wants to follow up with [facility] when viable because that is where her GI doc lives. 12/24/24 -?-?-?-?-?-?-?-?-?-?-?-?- 18w 0d 171 lb 123/73 Negative -?-?-?-?-?-?-?-?-?-?-?-?- Negative 154 -?-?--?-?-?-?-?-?-?-?-?-?- JV- patient is n ow needing to self cath as is unable to void at all. She is also needing to flush her Kenyatta catheter periodically due to constipation. She will see MFM in 2 weeks at [facility]. JV- patient is now needing t o self cath as is unable to void at all. She is also needing to flush her abdominal catheter periodically due to constipation. She will see MFM in 2 weeks at [facility]. 01/20/25 -?-?-?-?-?-?-?-?-?-?-?-?- 21w 6d 177 lb 3 oz 113/68 Nega tive -?-?-?-?-?-?-?-?-?-?-?-?- Negative 150 -?-?-?-?-?-?-?-?-?-?-?--?- JV- anatomy scan done at [facility] still not in chart. will ask to sign ror or long into clinisync for it. her last visit with us kevin be feb 18. No complaints other than stretching of her abdomen where her scar tissue is. 02/19/25 -?-?-?-?-?-?-?-?-?-?-?-?- 26w 1d 177 lb 3 oz 135/77 Nega tive -?-?-?-?-?-?-?-?-?-?-?-?- Negative 150 26 -?-?-?-?-?-?-?-?-?-?-?-?- SM- no vb lof go od fm no regular ctx, this is the last appointment before her transfer of care, pepcid started ACOG First Trimester First Trimester: Desire for , Alcohol, Tobacco Cessation, Illicit/Recreational Drug/Substance Use, Intimate Partner Violence, Barriers to care, Unstable Housing, Communication Barriers, Environmental/Work Hazards, Anticipated Course of Care, Toxoplasmosis Precations, Use of Any medications, Sexual activity, Exercise, Dental Care, Sauna/Hot tub use, Seat Belt use, Childbirth classes/Hospital facilities, Travel, Indications for Ultrasound and Screening for Aneuploidy; Discussed ROS Const Denies fever(s) GI Reports as per HPI and Denies abdominal pain Reports as per HPI, Denies abnormal vaginal bleeding, Denies dysuria and Denies vaginal discharge Exam Const General: healthy appearing, comfortable and no acute distress GI Inspection: normal to inspection Palpation: soft and nontender Results POC Urinalysis 2 Dip (Clinic) Office Urine Glucose Negative Last Edit by Jesse Tidwell on 02/19/25 09:16 Office Urine Protein Negative Last Edit by Jesse Tidwell on 02/19/25 09:16 Coding Level of Care Code OB Routine Diagnoses ARM (anorectal malformation) Q43.9 Spotting affecting in first trimester O26.851 UTI (urinary tract infection) during O23.40 Advanced maternal age (AMA) in 26 weeks gestation of Z3A.26 Weeks of gestation: 26 weeks Supervision of high risk in first trimester O09.91 Trimester: first trimester History of miscarriage, currently O09.299 Hx of maternal blood transfusion, currently O09.299 Hypothyroidism affecting in first trimester O99.281; E03.9 Trimester: first trimester Anxiety and depression F41.9; F32.A 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 has abdominal port in place. has undergone several bowel surgeries since . (2) Spotting affecting in first trimester: Status: Acute Comment: TVUS (3) UTI (urinary tract infection) during : Status: Acute Comment: abx sent-2nd one this . will need prophylactic atb (4) Advanced maternal age (AMA) in : Status: Acute Comment: nl preimplantation genetics, growth Q4wks @24wks, NST weekly @ 36wks (5) : Status: Acute Qualifiers: Weeks of gestation: 26 weeks Qualified Code(s): Z3A.26 - 26 weeks gestation of Comment: Pt has had extensive genetic testing, donor egg, baby boy, 1st trimester nl growth & normal NT, 18-20wk anatomy, CL & BPP, 22-24 echo (6) Supervision of high-risk : Status: Acute Qualifiers: Trimester: first trimester Qualified Code(s): O09.91 - Supervision of high risk , unspecified, first trimester Comment: DOC ONLY PRR , WES 05/27/25, boy Johnny([facility] [employer] Frame Dipper) (7) History of miscarriage, currently : Status: Acute Comment: first IVF attempt failed (8) Hx of maternal blood transfusion, currently : Status: Acute Comment: childhood surgery transfusion (9) Hypothyroidism affecting : Status: Acute Qualifiers: Trimester: first trimester Qualified Code(s): O99.281 - Endocrine, nutritional and metabolic diseases complicating , first trimester; E03.9 - Hypothyroidism, unspecified (10) Anxiety and depression: Status: Acute (11) In vitro fertilization: Status: Acute Comment: donor egg (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 (13) Rectal atresia: Status: Chronic (14) Recto-vaginal fistula: Status: Chronic (15) Congenital duplication of vagina: Status: Chronic Comment: DOC ONLY (16) Tethered cord: Status: Chronic Comment: Pt has a history of tethered cord: d/w pt need for an anesthesia consult to assess for regional anesthesia at the time of delivery--determine whether anesthesia would want any recent imaging of her spine to assess feasibility. Orders: Orders POC Urinalysis 2 Dip (Clinic) Today Medications: New famotidine (Pepcid) 20 mg PO BID 60 tabs 6RF Discontinued fosfomycin tromethamine Discontinued Reason: Ordered/Entered in error 3 grams PO ONCE 1 ea 0RF O23.40 - Unspecified infection of urinary tract in , unspecified trimester 02/19/25 0953 <Electronically signed by Kaila hammonds MD> Date _ Kaila Zepedaignbernarda Signature: Date (if applicable) CC: ~ [employer] Work Phone: Reason for referral (narrative)* Diagnostic Procedure Only (Routine) - Pending Review Specialty Diagnoses / Procedures Referred By Contac t Referred To Contact [facility] Diagnoses Female infertility Procedures FOLLICULAR US [facility] US PELVIC NONOBSTETRIC IMAGE DCMTN LIMITED/F/U Aiyana Harman APRN.ENGINEERING LECTURER [address] [id number] [place] [id number] Referral ID Status Reason Start Date Expiration Date Visits Requested Visits Authorized [id number] Pending Review Auto-Generat ed Referral 09/22/2021 09/22/2022 6 6 [facility] Diagnostic Procedure Only (Routine) - Pending Review Specialty Diagnoses / Procedures Referred By Contac t Referred To Contact [facility] Diagnoses Female infertility Procedures FOLLICULAR US [facility] US PELVIC NONOBSTETRIC IMAGE DCMTN LIMITED/F/U Aiyana Harman APRN.ENGINEERING LECTURER [address] [id number] [facility] [address] [place] [address] Referral ID Status Reason Start Date Expiration Date Visits Requested Visits Authorized [id number] Pending Review Auto-Generat ed Referral 10/06/2021 10/06/2022 6 6 [facility] Diagnostic Procedure Only (Routine) - Pending Review Specialty Diagnoses / Procedures Referred By Contac t Referred To Contact [facility] Diagnoses Primary female infertility Procedures FOLLICULAR US I US PELVIC NONOBSTETRIC IMAGE DCMTN LIMITED/F/U Stuart Guerrero APRN.ENGINEERING LECTURER [address] [place] [address] [facility] [address] [place] [address] Referral ID Status Reason Start Date Expiration Date Visits Requested Visits Authorized [id number] Pending Review Auto-Generat ed Referral 12/26/2021 12/26/2022 1 1 [facility] for referral (narrative)* Diagnostic Procedure Only (Routine) - Pending Review Specialty Diagnoses / Procedures Referred By Contac t Referred To Contact [facility] Diagnoses Female infertility Procedures FOLLICULAR US [facility] US PELVIC NONOBSTETRIC IMAGE DCMTN LIMITED/F/U Aiyana Harman APRN.ENGINEERING LECTURER [address] [id number] [facility] [address] [place] [address] Referral ID Status Reason Start Date Expiration Date Visits Requested Visits Authorized [id number] Pending Review Auto-Generat ed Referral 02/22/2022 02/22/2023 6 1 [facility] for referral (narrative)* Diagnostic Procedure Only (Routine) - Pending Review Specialty Diagnoses / Procedures Referred By Contac t Referred To Contact [facility] Diagnoses Encounter for fertility testing Procedures FOLLICULAR US I US PELVIC NONOBSTETRIC IMAGE DCMTN LIMITED/F/U Stuart Guerrero APRN.ENGINEERING LECTURER [address] [place] [address] [facility] [address] [place] [address] Referral ID Status Reason Start Date Expiration Date Visits Requested Visits Authorized [id number] Pending Review Auto-Generat ed Referral 04/11/2023 6 1 [facility] for referral (narrative)* Diagnostic Procedure Only (Routine) - Authorized Specialty Diagnoses / Procedures Referred By Contac t Referred To Contact [facility] Diagnoses Female infertility Procedures FOLLICULAR US [facility] US PELVIC NONOBSTETRIC IMAGE DCMTN LIMITED/F/U Stuart Guerrero APRN.ENGINEERING LECTURER [address] [facility] [place] [address] [address] [place] [address] Referral ID Status Reason Start Date Expiration Date Visits Requested Visits Authorized [id number] Authorized Auto-Generat ed Referral 07/24/2022 07/24/2023 1 1 [facility] for referral (narrative)* Diagnostic Procedure Only (Routine) - Authorized Specialty Diagnoses / Procedures Referred By Contac t Referred To Contact [facility] Diagnoses Female infertility Procedures FOLLICULAR US I US PELVIC NONOBSTETRIC IMAGE DCMTN LIMITED/F/U Marina Boswell APRN.ENGINEERING LECTURER [address] [place] [address] [place] [address] Referral ID Status Reason Start Date Expiration Date Visits Requested Visits Authorized [id number] Authorized Auto-Generat ed Referral 08/28/2022 08/28/2023 6 1 [facility] for referral (narrative)No reason for referral information [facility]WP[facility] Work Phone: Reason for visit Narrative* Diagnostic Procedure Only (Routine) - Closed Specialty Diagnoses / Procedures Referred By Contac t Referred To Contact [facility] Diagnoses Female infertility Procedures FOLLICULAR US WHI US PELVIC NONOBSTETRIC IMAGE DCMTN LIMITED/F/U Shelby Rojas PA-C [address] [place] [address] [address] Referral ID Status Reason Start Date Expiration Date V isits Requested Visits Authorized [id number] Closed Auto-Generate d Referral 07/05/2022 07/05/2023 6 6 [facility] for visit Narrative* Diagnostic Procedure Only (Routine) - Authorized Specialty Diagnoses / Procedures Referred By Contac t Referred To Contact [facility] Diagnoses Encounter for fertility testing Procedures FOLLICULAR US WHI US PELVIC NONOBSTETRIC IMAGE DCMTN LIMITED/F/U Stuart Guerrero APRN.ENGINEERING LECTURER [address] [place] [address] [address] Referral ID Status Reason Start Date Expiration Date Visits Requested Visits Authorized [id number] Authorized Auto-Generat ed Referral 11/14/2022 06/17/2023 6 6 [facility] for visit Narrative* Radiology Services (Routine) - New Request Specialty Diagnoses / Procedures Referred By Contac t Referred To Contact [facility] Interventional Diagnoses Anorectal malformation Other constipation History of antegrade continence enema procedure Procedures IR Cecostomy Exchange with Fluoro IR Consult Andres Fitzgerald APN [address] [place] [address] Phone: tel: fax: Referral ID Status Reason Start Date Expiration Date V isits Requested Visits Authorized [id number] New Request 04/10/2024 1 1 [facility] for visit Narrative* Radiology Services (Routine) - New Request Specialty Diagnoses / Procedures Referred By Contac t Referred To Contact [facility] Ultrasound Diagnoses Anorectal malformation Procedures US Kidney Jesse Edwards, IRENA [address] [place] [address] Phone: tel: fax: Referral ID Status Reason Start Date Expiration Date V isits Requested Visits Authorized [id number] New Request 04/09/2024 1 1 [facility] Summary Purpose Family History No Family History Records Found Relationship Condition Age at Onset Recorded Date/T rika grandfather Malignant neoplasm 55 father Diabetes mellitus Unknown uncle Multiple sclerosis Unknown mother Lymphedema Unknown grandfather Lymphedema Unknown Advance Directives No Advanced Directives Records FoundDocuments on File Type Date Recorded 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 Advance Directive(s) 05/24/2020 6:40 PM Advance Directive(s) 05/05/2020 11:58 AM Advance Directive(s) 03/25/2020 1:38 PM Documents on File Type Date Recorded 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 Advance Directive(s) 05/24/2020 6:40 PM Advance Directive(s) 05/05/2020 11:58 AM Advance Directive(s) 03/25/2020 1:38 PM Advance Directive Response Recorded Date/ Time Advance Directives No April 3:11pm Reason for Referral Specialty Diagnoses / Procedures Referred By Contac t Referred To Contact Marina Boswell APRN.ENGINEERING LECTURER [address] [place] [address] Referral ID Status Reason Start Date Expiration Date V isits Requested Visits Authorized [id number] Authorized 08/28/2022 10/28/2022 1 1 Specialty Diagnoses / Procedures Referred By Contac t Referred To Contact [facility] Interventional Diagnoses Anorectal malformation Procedures IR Consult Chaitanya Akins APN [address] [place] [address] Referral ID Status Reason Start Date Expiration Date V isits Requested Visits Authorized [id number] New Request 04/08/2024 1 1 Specialty Diagnoses / Procedures Referred By Contac t Referred To Contact Diagnoses Anorectal malformation Procedures XR Abdomen - Supine Chaitanya Akins APN [address] [place] [address] Referral ID Status Reason Start Date Expiration Date V isits Requested Visits Authorized [id number] New Request 04/09/2024 1 1 Specialty Diagnoses / Procedures Referred By Contac t Referred To Contact [facility] Interventional Diagnoses Anorectal malformation Other constipation History of antegrade continence enema procedure Procedures IR Consult Andres Fitzgerald APN [address] [place] [address] Referral ID Status Reason Start Date Expiration Date V isits Requested Visits Authorized [id number] New Request 04/10/2024 1 1 Specialty Diagnoses / Procedures Referred By Valarie santillan Referred To Contact Diagnoses Anorectal malformation Other constipation History of antegrade continence enema procedure Procedures XR Abdomen - Supine Andres Fitzgerald, BANNER [address] [place] [id number] Referral ID Status Reason Start Date Expiration Date V isits Requested Visits Authorized [id number] New Request 04/10/2024 1 1 Specialty Diagnoses / Procedures Referred By Valarie t Referred To Contact RAD Interventional Diagnoses Anorectal malformation Procedures IR Cecostomy Exchange with Fluoro IR Consult Chaitanya Akins, BANNER [address] [place] [phone] Chief Complaint and Reason for Visit Chief [...] 11:26am Hx of maternal blood transfusion, jose tly October 24, 2024 11:26am Hypothyroidism affecting [...] 9:03am Hx of maternal blood transfusion, jose tly October 30, 2024 9:03am Hypothyroidism affecting October 162024 9:03am In vitro fertilization October 30, 2024 9: 03am October 30, 2024 9:03a m Supervision of high-risk October 162024 9:03am UTI (urinary tract infection) during pre gnancy October 30, 2024 9:03am 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, 2024 9:03a m 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 15t h, 2024 9:03am 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 30, 2024 9:03a [...] 2024 9:01am Hx of maternal blood transfusion, dontrellen tly October 14, 2024 9:01am Hypothyroidism affecting [...] 2024 11:26am Hx of maternal blood transfusion, dontrellen tly October 24, 2024 11:26am Hypothyroidism affecting [...] 9:03a m 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 15 h, 2024 9:03am 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 30, 2024 9:03a m Recto-vaginal fistula October 30, 2024 9:0 3am Tethered cord October 30, 2024 9:03a m 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 h2024 9:03am 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, 2024 9:03a m Lipoma of back October 30, 2024 9:03a m Advanced maternal age (AMA) in November 06, 2024 2:01pm Anxiety and depression November 06, 2024 2: 01pm 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 06, 2024 2:01pm History of miscarriage, currently pregna nt November 06, 2024 2:01pm Hx of maternal blood transfusion, jose bansal November 06, 2024 2:01pm Hypothyroidism affecting October 172024 2:01pm In vitro fertilization November 06, 2024 2: 01pm November 06, 2024 2:01p m Supervision of high-risk October 172024 2:01pm UTI (urinary tract infection) during pre gnancy November 06, 2024 2:01pm VACTERL syndrome November 06, 2024 2:01p m 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, 2024 2:01pm Rectal atresia November 06, 2024 2:01p [...] 9:03a m 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 15t h, 2024 9:03am 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 30, 2024 9:03a [...] 8:07am Hx of maternal blood transfusion, jose bansal November 13, 2024 8:07am Hypothyroidism affecting October [...] 2024 11:26am Hx of maternal blood transfusion, dontrellen tly October 24, 2024 11:26am Hypothyroidism affecting [...] 2024 9:03am Hx of maternal blood transfusion, dontrellen tly October 30, 2024 9:03am Hypothyroidism affecting [...] 9:03a m 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 h2024 9:03am 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, 2024 9:03a [...] 2024 11:26am Hx of maternal blood transfusion, dontrellen tly October 24, 2024 11:26am Hypothyroidism affecting [...] 2024 9:03am Hx of maternal blood transfusion, dontrellen tly October 30, 2024 9:03am Hypothyroidism affecting October 162024 9:03am In vitro fertilization October 30, 2024 9: 03am October 30, 2024 9:03a m Supervision of high-risk October 162024 9:03am UTI (urinary tract infection) during pre gnancy October 30, 2024 9:03am 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 9:03am 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 30, 2024 9:03a m Recto-vaginal fistula October 30, 2024 9:0 3am Tethered cord October 30, 2024 9:03a m 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 h, 2024 9:03am 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, [...] 2024 2:33pm Hx of maternal blood transfusion, curren tly November 26, 2024 2:33pm Hypothyroidism affecting [...] UTI check November 18, 2024 2:10p m Chief Complaint [...] DOC ONLY November 26, 2024 2:33 pm 18wk ob * DOC ONLY December 24, 2024 11:40 am Reason for Visit Admit Date Advanced maternal [...] 2024 9:03am 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 9:03am 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 30, 2024 9:03a m Recto-vaginal fistula October 30, 2024 9:0 3am Tethered cord October 30, 2024 9:03a m 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 15t h2024 9:03am 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, 2024 9:03a [...] 8:07am Hx of maternal blood transfusion, jose bansal November 13, 2024 8:07am Hypothyroidism affecting October [...] 2:10pm Hx of maternal blood transfusion, jose bansal November 18, 2024 2:10pm Hypothyroidism affecting November [...] 2:33pm Hx of maternal blood transfusion, jose bansal November 26, 2024 2:33pm Hypothyroidism affecting November [...] 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, 2024 2:33 pm Advanced maternal age (AMA) in December 24, 2024 11:40am Anxiety and depression December 24, 2024 11 :40am ARM (anorectal malformation) December 24, 2 025 11:40am 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, 2024 11:40am History of miscarriage, currently pregna nt December 24, 2024 11:40am Hx of maternal blood transfusion, jose bansal December 24, 2024 11:40am Hypothyroidism affecting December 24, 2024 11:40am In vitro fertilization December 24, 2024 11 :40am December 24, 2024 11:40 am Spotting affecting in first tr imester December 24, 2024 11:40am Supervision of high-risk December 24, 2024 11:40am UTI (urinary tract infection) during pre gnancy December 24, 2024 11:40am 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 11:40am Rectal atresia December 24, 2024 11:40 am Recto-vaginal fistula December 24, 2024 11: 40am Tethered cord December 24, 2024 11:40 am Chief Complaint Admit Date Confirmation for / [...] DOC ONLY November 26, 2024 2:33 pm 18wk ob * DOC ONLY December 24, 2024 11:40 am 22wk ob * DOC ONLY January 20, 2025 3:2 3pm Reason for Visit Admit Date Advanced maternal [...] 2024 9:03am 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 9:03am Rectal [...] 2024 2:01pm 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 d2024 2:01pm [...] 2024 2:33pm Hx of maternal blood transfusion, curren tly November 26, 2024 2:33pm Hypothyroidism affecting [...] 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, 2024 2:33 pm Advanced maternal age (AMA) in December 24, 2024 11:40am Anxiety and depression December 24, 2024 11 :40am ARM (anorectal malformation) December 24 11:40am 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, 2024 11:40am History of miscarriage, currently pregna nt December 24, 2024 11:40am Hx of maternal blood transfusion, curren tly December 24, 2024 11:40am Hypothyroidism affecting December 24, 2024 11:40am In vitro fertilization December 24, 2024 11 :40am December 24, 2024 11:40 am Spotting affecting in first tr imester December 24, 2024 11:40am Supervision of high-risk December 24, 2024 11:40am UTI (urinary tract infection) during pre gnancy December 24, 2024 11:40am 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 11:40am Rectal atresia December 24, 2024 11:40 am Recto-vaginal fistula December 24, 2024 11: 40am Tethered cord December 24, 2024 11:40 am Advanced maternal age (AMA) in January 20, 2025 3:23pm Anxiety and depression January 20, 2025 3:23pm ARM (anorectal malformation) January 20, 2025 3:23pm 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 3:23pm History of miscarriage, currently pregna nt January 20, 2025 3:23pm Hx of maternal blood transfusion, curren tly January 20, 2025 3:23pm Hypothyroidism affecting Augus t 2024 3:23pm In vitro fertilization January 20, 2025 3:23pm January 20, 2025 3:2 3pm Spotting affecting in first tr imester January 20, 2025 3:23pm Supervision of high-risk Augus t 2024 3:23pm UTI (urinary tract infection) during pre gnancy January 20, 2025 3:23pm Congenital duplication of vagina January 20, 2025 3:23pm Rectal atresia January 20, 2025 3:2 3pm Recto-vaginal fistula January 20, 2025 3 :23pm Tethered cord January 20, 2025 3:2 3pm Chief Complaint Admit Date NOB IVF transfer 09/09October 24, 2024 11:2 6am 10W 1D [employer] CK per JV October 30 9:03am Repeat Urine Culture November 06, 2024 2:01 pm 12 wk ob November 13, 2024 8:07a m UTI check November 18, 2024 2:10p m SPOTTING November 18, 2024 2:24p m 14wk OB * DOC ONLY November 26, 2024 2:33 pm 18wk ob * DOC ONLY December 24, 2024 11:40 am 22wk ob * DOC ONLY January 20, 2025 3:2 3pm 26 WK OB *DOC ONLY February 19, 2025 9:02am Reason for Visit Admit Date Advanced maternal age (AMA) in October 24, 2024 11:26am Anxiety and depression October 24, 2024 11: 26am 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, 025 11:26am History of miscarriage, currently pregna nt October 24, 2024 11:26am Hx of maternal blood transfusion, jose tly October 24, 2024 11:26am Hypothyroidism affecting [...] 9:03am 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 15 h, 2024 9:03am 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 30, 2024 9:03a m Recto-vaginal fistula October 30, 2024 9:0 3am Tethered cord October 30, 2024 9:03a m 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 h, 2024 9:03am 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, [...] 2:01pm Hx of maternal blood transfusion, jose bansal November 06, 2024 2:01pm Hypothyroidism affecting October [...] 8:07am Hx of maternal blood transfusion, jose bansal November 13, 2024 8:07am Hypothyroidism affecting October [...] 2:10pm Hx of maternal blood transfusion, jose bansal November 18, 2024 2:10pm Hypothyroidism affecting November [...] 2:33pm Hx of maternal blood transfusion, jose bansal November 26, 2024 2:33pm Hypothyroidism affecting November [...] 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, 2024 2:33 pm Advanced maternal age (AMA) in December 24, 2024 11:40am Anxiety and depression December 24, 2024 11 :40am ARM (anorectal malformation) December 24 11:40am 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, 2024 11:40am History of miscarriage, currently pregna nt December 24, 2024 11:40am Hx of maternal blood transfusion, jose bansal December 24, 2024 11:40am Hypothyroidism affecting December 24, 2024 11:40am In vitro fertilization December 24, 2024 11 :40am December 24, 2024 11:40 am Spotting affecting in first tr imester December 24, 2024 11:40am Supervision of high-risk December 24, 2024 11:40am UTI (urinary tract infection) during pre gnancy December 24, 2024 11:40am 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 11:40am Rectal atresia December 24, 2024 11:40 am Recto-vaginal fistula December 24, 2024 11: 40am Tethered cord December 24, 2024 11:40 am Advanced maternal age (AMA) in January 20, 2025 3:23pm Anxiety and depression January 20, 2025 3:23pm ARM (anorectal malformation) January 20, 2025 3:23pm 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 3:23pm History of miscarriage, currently pregna nt January 20, 2025 3:23pm Hx of maternal blood transfusion, jose tly January 20, 2025 3:23pm Hypothyroidism affecting Augus t 2024 3:23pm In vitro fertilization January 20, 2025 3:23pm January 20, 2025 3:2 3pm Spotting affecting in first tr imester January 20, 2025 3:23pm Supervision of high-risk Augus t 2024 3:23pm UTI (urinary tract infection) during pre gnancy January 20, 2025 3:23pm Congenital duplication of vagina January 20, 2025 3:23pm Rectal atresia January 20, 2025 3:2 3pm Recto-vaginal fistula January 20, 2025 3 :23pm Tethered cord January 20, 2025 3:2 3pm Advanced maternal age (AMA) in February 19, 2025 9:02am Anxiety and depression February 19 9:02am ARM (anorectal malformation) February 192024 9:02am Didelphic uterus in February 19, 2025 9:02am History of miscarriage, currently pregna nt February 19, 2025 9:02am Hx of maternal blood transfusion, jose tlgaudencio February 19, 2025 9:02am [facility] 2024 9:02am In vitro fertilization February 19 9:02am February 19, 2025 9:02am Spotting affecting in first tr imester February 19, 2025 9:02am Supervision of high-risk [facility] 2024 9:02am UTI (urinary tract infection) during pre gnancy February 19, 2025 9:02am Congenital duplication of vagina Septemb 2024 9:02am Rectal atresia February 19, 2025 9:02am Recto-vaginal fistula February 19 9:02am Tethered cord February 19, 2025 9:02am Additional Source Comments INFORMATION SOURCE (unrecogn ized section and content) DATE CREATED AUTHOR 11/01/2019 Malina Lee [facility] DATE CREATED AUTHOR AUTHOR'S ORGANIZ ATION 12/03/2020 [facility] DATE CREATED AUTHOR AUTHOR'S ORGANIZ ATION 03/17/2021 Carmelo Louis [facility] DATE CREATED AUTHOR AUTHOR'S ORGANIZ ATION 06/09/2022 [facility] DATE CREATED AUTHOR AUTHOR'S ORGANIZ ATION 11/11/2023 [facility] DATE CREATED AUTHOR AUTHOR'S ORGANIZ ATION 11/14/2023 [facility] DATE CREATED AUTHOR AUTHOR'S ORGANIZ ATION 11/17/2023 [facility] DATE CREATED AUTHOR AUTHOR'S ORGANIZ ATION 10/11/2024 [facility] DATE CREATED AUTHOR AUTHOR'S ORGANIZ ATION 11/28/2024 [facility] DATE CREATED AUTHOR AUTHOR'S ORGANIZ ATION 01/25/2025 [facility] DATE CREATED AUTHOR AUTHOR'S ORGANIZ ATION 02/13/2025 [facility] DATE CREATED AUTHOR AUTHOR'S ORGANIZ ATION 02/21/2025 [facility] Source Comments (unrecognize d section and content) In the event this informatio n is protected by the Federal Confidentiality of Alcohol and Drug Abuse Patient Records regulations: The Federal rules restrict any use of the information to criminally investigate or prosecute any alcohol or drug abuse patient.[facility] the event this information is protected by the Federal Confidentiality of Alcohol and Drug Abuse Patient Records regulations: The Federal rules restrict any use of the information to criminally investigate or prosecute any alcohol or drug abuse patient.[facility] CenterIn the event this information is protected by the Federal Confidentiality of Alcohol and Drug Abuse Patient Records regulations: The Federal rules restrict any use of the information to criminally investigate or prosecute any alcohol or drug abuse patient.[facility] CenterIn the event this information is protected by the Federal Confidentiality of Alcohol and Drug Abuse Patient Records regulations: The Federal rules restrict any use of the information to criminally investigate or prosecute any alcohol or drug abuse patient.[facility] CenterIn the event this information is protected by the Federal Confidentiality of Alcohol and Drug Abuse Patient Records regulations: The Federal rules restrict any use of the information to criminally investigate or prosecute any alcohol or drug abuse patient.[facility] CenterIn the event this information is protected by the Federal Confidentiality of Alcohol and Drug Abuse Patient Records regulations: The Federal rules restrict any use of the information to criminally investigate or prosecute any alcohol or drug abuse patient.[facility] CenterIn the event this information is protected by the Federal Confidentiality of Alcohol and Drug Abuse Patient Records regulations: The Federal rules restrict any use of the information to criminally investigate or prosecute any alcohol or drug abuse patient.[facility] CenterIn the event this information is protected by the Federal Confidentiality of Alcohol and Drug Abuse Patient Records regulations: The Federal rules restrict any use of the information to criminally investigate or prosecute any alcohol or drug abuse patient.[facility] CenterIn the event this information is protected by the Federal Confidentiality of Alcohol and Drug Abuse Patient Records regulations: The Federal rules restrict any use of the information to criminally investigate or prosecute any alcohol or drug abuse patient.[facility] CenterIn the event this information is protected by the Federal Confidentiality of Alcohol and Drug Abuse Patient Records regulations: The Federal rules restrict any use of the information to criminally investigate or prosecute any alcohol or drug abuse patient.[facility] CenterIn the event this information is protected by the Federal Confidentiality of Alcohol and Drug Abuse Patient Records regulations: The Federal rules restrict any use of the information to criminally investigate or prosecute any alcohol or drug abuse patient.[facility] CenterIn the event this information is protected by the Federal Confidentiality of Alcohol and Drug Abuse Patient Records regulations: The Federal rules restrict any use of the information to criminally investigate or prosecute any alcohol or drug abuse patient.[facility] CenterIn the event this information is protected by the Federal Confidentiality of Alcohol and Drug Abuse Patient Records regulations: The Federal rules restrict any use of the information to criminally investigate or prosecute any alcohol or drug abuse patient.[facility] CenterIn the event this information is protected by the Federal Confidentiality of Alcohol and Drug Abuse Patient Records regulations: The Federal rules restrict any use of the information to criminally investigate or prosecute any alcohol or drug abuse patient.[facility] CenterIn the event this information is protected by the Federal Confidentiality of Alcohol and Drug Abuse Patient Records regulations: The Federal rules restrict any use of the information to criminally investigate or prosecute any alcohol or drug abuse patient.[facility] CenterIn the event this information is protected by the Federal Confidentiality of Alcohol and Drug Abuse Patient Records regulations: The Federal rules restrict any use of the information to criminally investigate or prosecute any alcohol or drug abuse patient.[facility] CenterIn the event this information is protected by the Federal Confidentiality of Alcohol and Drug Abuse Patient Records regulations: The Federal rules restrict any use of the information to criminally investigate or prosecute any alcohol or drug abuse patient.[facility] CenterIn the event this information is protected by the Federal Confidentiality of Alcohol and Drug Abuse Patient Records regulations: The Federal rules restrict any use of the information to criminally investigate or prosecute any alcohol or drug abuse patient.[facility] CenterIn the event this information is protected by the Federal Confidentiality of Alcohol and Drug Abuse Patient Records regulations: The Federal rules restrict any use of the information to criminally investigate or prosecute any alcohol or drug abuse patient.[facility] CenterIn the event this information is protected by the Federal Confidentiality of Alcohol and Drug Abuse Patient Records regulations: The Federal rules restrict any use of the information to criminally investigate or prosecute any alcohol or drug abuse patient.[facility] CenterIn the event this information is protected by the Federal Confidentiality of Alcohol and Drug Abuse Patient Records regulations: The Federal rules restrict any use of the information to criminally investigate or prosecute any alcohol or drug abuse patient.[facility] CenterIn the event this information is protected by the Federal Confidentiality of Alcohol and Drug Abuse Patient Records regulations: The Federal rules restrict any use of the information to criminally investigate or prosecute any alcohol or drug abuse patient.[facility] the event this information is protected by the Federal Confidentiality of Alcohol and Drug Abuse Patient Records regulations: The Federal rules restrict any use of the information to criminally investigate or prosecute any alcohol or drug abuse patient.[facility] CenterIn the event this information is protected by the Federal Confidentiality of Alcohol and Drug Abuse Patient Records regulations: The Federal rules restrict any use of the information to criminally investigate or prosecute any alcohol or drug abuse patient.[facility] CenterIn the event this information is protected by [...] or prosecute any alcohol or drug abuse patient.[facility] CenterIn the event this information is protected by the Federal Confidentiality of Alcohol and Drug Abuse Patient Records regulations: The Federal rules restrict any use of the information to criminally investigate or prosecute any alcohol or drug abuse patient.[facility] CenterIn the event this information is protected by the Federal Confidentiality of Alcohol and Drug Abuse Patient Records regulations: The Federal rules restrict any use of the information to criminally investigate or prosecute any alcohol or drug abuse patient.[facility] CenterIn the event this information is protected by the Federal Confidentiality of Alcohol and Drug Abuse Patient Records regulations: The Federal rules restrict any use of the information to criminally investigate or prosecute any alcohol or drug abuse patient.[facility] CenterIn the event this information is protected by the Federal Confidentiality of Alcohol and Drug Abuse Patient Records regulations: The Federal rules restrict any use of the information to criminally investigate or prosecute any alcohol or drug abuse patient.[facility] CenterIn the event this information is protected by the Federal Confidentiality of Alcohol and Drug Abuse Patient Records regulations: The Federal rules restrict any use of the information to criminally investigate or prosecute any alcohol or drug abuse patient.[facility] CenterIn the event this information is protected by the Federal Confidentiality of Alcohol and Drug Abuse Patient Records regulations: The Federal rules restrict any use of the information to criminally investigate or prosecute any alcohol or drug abuse patient.[facility] CenterIn the event this information is protected by the Federal Confidentiality of Alcohol and Drug Abuse Patient Records regulations: The Federal rules restrict any use of the information to criminally investigate or prosecute any alcohol or drug abuse patient.[facility] CenterIn the event this information is protected by the Federal Confidentiality of Alcohol and Drug Abuse Patient Records regulations: The Federal rules restrict any use of the information to criminally investigate or prosecute any alcohol or drug abuse patient.[facility] CenterIn the event this information is protected by the Federal Confidentiality of Alcohol and Drug Abuse Patient Records regulations: The Federal rules restrict any use of the information to criminally investigate or prosecute any alcohol or drug abuse patient.[facility] CenterIn the event this information is protected by the Federal Confidentiality of Alcohol and Drug Abuse Patient Records regulations: The Federal rules restrict any use of the information to criminally investigate or prosecute any alcohol or drug abuse patient.[facility] CenterIn the event this information is protected by the Federal Confidentiality of Alcohol and Drug Abuse Patient Records regulations: The Federal rules restrict any use of the information to criminally investigate or prosecute any alcohol or drug abuse patient.[facility] CenterIn the event this information is protected by the Federal Confidentiality of Alcohol and Drug Abuse Patient Records regulations: The Federal rules restrict any use of the information to criminally investigate or prosecute any alcohol or drug abuse patient.[facility] CenterIn the event this information is protected by the Federal Confidentiality of Alcohol and Drug Abuse Patient Records regulations: The Federal rules restrict any use of the information to criminally investigate or prosecute any alcohol or drug abuse patient.[facility] CenterIn the event this information is protected by the Federal Confidentiality of Alcohol and Drug Abuse Patient Records regulations: The Federal rules restrict any use of the information to criminally investigate or prosecute any alcohol or drug abuse patient.[facility] CenterIn the event this information is protected by the Federal Confidentiality of Alcohol and Drug Abuse Patient Records regulations: The Federal rules restrict any use of the information to criminally investigate or prosecute any alcohol or drug abuse patient.[facility] CenterIn the event this information is protected by the Federal Confidentiality of Alcohol and Drug Abuse Patient Records regulations: The Federal rules restrict any use of the information to criminally investigate or prosecute any alcohol or drug abuse patient.[facility] CenterIn the event this information is protected by the Federal Confidentiality of Alcohol and Drug Abuse Patient Records regulations: The Federal rules restrict any use of the information to criminally investigate or prosecute any alcohol or drug abuse patient.[facility] CenterIn the event this information is protected by the Federal Confidentiality of Alcohol and Drug Abuse Patient Records regulations: The Federal rules restrict any use of the information to criminally investigate or prosecute any alcohol or drug abuse patient.[facility] CenterIn the event this information is protected by the Federal Confidentiality of Alcohol and Drug Abuse Patient Records regulations: The Federal rules restrict any use of the information to criminally investigate or prosecute any alcohol or drug abuse patient.[facility] CenterIn the event this information is protected by the Federal Confidentiality of Alcohol and Drug Abuse Patient Records regulations: The Federal rules restrict any use of the information to criminally investigate or prosecute any alcohol or drug abuse patient.[facility] CenterIn the event this information is protected by the Federal Confidentiality of Alcohol and Drug Abuse Patient Records regulations: The Federal rules restrict any use of the information to criminally investigate or prosecute any alcohol or drug abuse patient.[facility] CenterIn the event this information is protected by the Federal Confidentiality of Alcohol and Drug Abuse Patient Records regulations: The Federal rules restrict any use of the information to criminally investigate or prosecute any alcohol or drug abuse patient.[facility] CenterIn the event this information is protected by the Federal Confidentiality of Alcohol and Drug Abuse Patient Records regulations: The Federal rules restrict any use of the information to criminally investigate or prosecute any alcohol or drug abuse patient.[facility] CenterIn the event this information is protected by the Federal Confidentiality of Alcohol and Drug Abuse Patient Records regulations: The Federal rules restrict any use of the information to criminally investigate or prosecute any alcohol or drug abuse patient.[facility] CenterIn the event this information is protected by the Federal Confidentiality of Alcohol and Drug Abuse Patient Records regulations: The Federal rules restrict any use of the information to criminally investigate or prosecute any alcohol or drug abuse patient.[facility] CenterIn the event this information is protected by the Federal Confidentiality of Alcohol and Drug Abuse Patient Records regulations: The Federal rules restrict any use of the information to criminally investigate or prosecute any alcohol or drug abuse patient.[facility] CenterIn the event this information is protected by the Federal Confidentiality of Alcohol and Drug Abuse Patient Records regulations: The Federal rules restrict any use of the information to criminally investigate or prosecute any alcohol or drug abuse patient.[facility] CenterIn the event this information is protected by the Federal Confidentiality of Alcohol and Drug Abuse Patient Records regulations: The Federal rules restrict any use of the information to criminally investigate or prosecute any alcohol or drug abuse patient.[facility] CenterIn the event this information is protected by the Federal Confidentiality of Alcohol and Drug Abuse Patient Records regulations: The Federal rules restrict any use of the information to criminally investigate or prosecute any alcohol or drug abuse patient.[facility] CenterIn the event this information is protected by the Federal Confidentiality of Alcohol and Drug Abuse Patient Records regulations: The Federal rules restrict any use of the information to criminally investigate or prosecute any alcohol or drug abuse patient.[facility] CenterIn the event this information is protected by the Federal Confidentiality of Alcohol and Drug Abuse Patient Records regulations: The Federal rules restrict any use of the information to criminally investigate or prosecute any alcohol or drug abuse patient.[facility] CenterIn the event this information is protected by the Federal Confidentiality of Alcohol and Drug Abuse Patient Records regulations: The Federal rules restrict any use of the information to criminally investigate or prosecute any alcohol or drug abuse patient.[facility] CenterIn the event this information is protected by the Federal Confidentiality of Alcohol and Drug Abuse Patient Records regulations: The Federal rules restrict any use of the information to criminally investigate or prosecute any alcohol or drug abuse patient.[facility] CenterIn the event this information is protected by the Federal Confidentiality of Alcohol and Drug Abuse Patient Records regulations: The Federal rules restrict any use of the information to criminally investigate or prosecute any alcohol or drug abuse patient.[facility] CenterIn the event this information is protected by the Federal Confidentiality of Alcohol and Drug Abuse Patient Records regulations: The Federal rules restrict any use of the information to criminally investigate or prosecute any alcohol or drug abuse patient.[facility] CenterIn the event this information is protected by the Federal Confidentiality of Alcohol and Drug Abuse Patient Records regulations: The Federal rules restrict any use of the information to criminally investigate or prosecute any alcohol or drug abuse patient.[facility] CenterIn the event this information is protected by the Federal Confidentiality of Alcohol and Drug Abuse Patient Records regulations: The Federal rules restrict any use of the information to criminally investigate or prosecute any alcohol or drug abuse patient.[facility] Center[facility] the event this information is protected by the Federal Confidentiality of Alcohol and Drug Abuse Patient Records regulations: The Federal rules restrict any use of the information to criminally investigate or prosecute any alcohol or drug abuse patient.[facility] CenterIn the event this information is protected by the Federal Confidentiality of Alcohol and Drug Abuse Patient Records regulations: The Federal rules restrict any use of the information to criminally investigate or prosecute any alcohol or drug abuse patient.[facility] the event this information is protected by the Federal Confidentiality of Alcohol and Drug Abuse Patient Records regulations: The Federal rules restrict any use of the information to criminally investigate or prosecute any alcohol or drug abuse patient.[facility] Center[facility] the event this information is protected by the Federal Confidentiality of Alcohol and Drug Abuse Patient Records regulations: The Federal rules restrict any use of the information to criminally investigate or prosecute any alcohol or drug abuse patient.[facility] CenterIn the event this information is protected by the Federal Confidentiality of Alcohol and Drug Abuse Patient Records regulations: The Federal rules restrict any use of the information to criminally investigate or prosecute any alcohol or drug abuse patient.[facility] Center[facility] the event this information is protected by the Federal Confidentiality of Alcohol and Drug Abuse Patient Records regulations: The Federal rules restrict any use of the information to criminally investigate or prosecute any alcohol or drug abuse patient.[facility] CenterIn the event this information is protected by the Federal Confidentiality of Alcohol and Drug Abuse Patient Records regulations: The Federal rules restrict any use of the information to criminally investigate or prosecute any alcohol or drug abuse patient.[facility] CenterIn the event this information is protected by the Federal Confidentiality of Alcohol and Drug Abuse Patient Records regulations: The Federal rules restrict any use of the information to criminally investigate or prosecute any alcohol or drug abuse patient.[facility] CenterIn the event this information is protected by the Federal Confidentiality of Alcohol and Drug Abuse Patient Records regulations: The Federal rules restrict any use of the information to criminally investigate or prosecute any alcohol or drug abuse patient.[facility] the event this information is protected by the Federal Confidentiality of Alcohol and Drug Abuse Patient Records regulations: The Federal rules restrict any use of the information to criminally investigate or prosecute any alcohol or drug abuse patient.[facility] Center[facility] the event this information is protected by the Federal Confidentiality of Alcohol and Drug Abuse Patient Records regulations: The Federal rules restrict any use of the information to criminally investigate or prosecute any alcohol or drug abuse patient.[facility] CenterIn the event this information is protected by [...] or prosecute any alcohol or drug abuse patient.[facility] CenterIn the event this information is protected by the Federal Confidentiality of Alcohol and Drug Abuse Patient Records regulations: The Federal rules restrict any use of the information to criminally investigate or prosecute any alcohol or drug abuse patient.[facility] CenterIn the event this information is protected by the Federal Confidentiality of Alcohol and Drug Abuse Patient Records regulations: The Federal rules restrict any use of the information to criminally investigate or prosecute any alcohol or drug abuse patient.[facility] CenterIn the event this information is protected by the Federal Confidentiality of Alcohol and Drug Abuse Patient Records regulations: The Federal rules restrict any use of the information to criminally investigate or prosecute any alcohol or drug abuse patient.[facility] Care Teams (unrecognized sec tion and content) Enchilada Maker Relationship Specialty Start Date End Date Imani Helm DO [address] [place] [address] PCP - General Family Practice 09/25/19 Enchilada Maker Relationship Specialty Start Date End Date Imani Helm DO [address] [place] [address] PCP - General Family Practice 09/25/19 Enchilada Maker Relationship Specialty Start Date End Date Imani Helm DO [address] [place] [address] PCP - General Family Practice 09/25/19 Enchilada Maker Relationship Specialty Start Date End Date Imani Helm DO [address] [place] [address] PCP - General Family Practice 09/25/19 Enchilada Maker Relationship Specialty Start Date End Date Imani Helm DO [address] [place] [address] PCP - General Family Practice 09/25/19 Enchilada Maker Relationship Specialty Start Date End Date Imani Helm DO [address] [place] [address] PCP - General Family Practice 09/25/19 Enchilada Maker Relationship Specialty Start Date End Date Imani Helm DO [address] [place] [address] PCP - General Family Practice 09/25/19 Enchilada Maker Relationship Specialty Start Date End Date Imani Helm DO [address] [place] [address] PCP - General Family Practice 09/25/19 Enchilada Maker Relationship Specialty Start Date End Date Imain Helm DO [address] [place] [address] PCP - General Family Practice 09/25/19 Enchilada Maker Relationship Specialty Start Date End Date Imani Helm DO [address] [place] [address] PCP - General Family Practice 09/25/19 Enchilada Maker Relationship Specialty Start Date End Date Imani Helm DO [address] [place] [address] PCP - General Family Practice 09/25/19 Enchilada Maker Relationship Specialty Start Date End Date Imani Helm DO [address] [place] [address] PCP - General Family Practice 09/25/19 Enchilada Maker Relationship Specialty Start Date End Date Imani Helm DO [address] [place] [address] PCP - General Family Practice 09/25/19 Enchilada Maker Relationship Specialty Start Date End Date Imani Helm DO [place] PCP - General Family Medicine 09/25/19 Enchilada Maker Relationship Specialty Start Date End Date JohnmarysolImani DO PCP - General Family Medicine 09/25/19 Enchilada Maker Relationship Specialty Start Date End Date JohnmarysolImani DO PCP - General Family Medicine 09/25/19 Enchilada Maker Relationship Specialty Start Date End Date Imani Helm DO PCP - General Family Medicine 09/25/19 Enchilada Maker Relationship Specialty Start Date End Date Imani Helm DO PCP - General Family Medicine 09/25/19 Enchilada Maker Relationship Specialty Start Date End Date Imani Helm DO PCP - General Family Medicine 09/25/19 Enchilada Maker Relationship Specialty Start Date End Date Imani Helm DO PCP - General Family Medicine 09/25/19 Enchilada Maker Relationship Specialty Start Date End Date Imani Helm DO PCP - General Family Medicine 09/25/19 Enchilada Maker Relationship Specialty Start Date End Date Imani Helm DO PCP - General Family Medicine 09/25/19 Enchilada Maker Relationship Specialty Start Date End Date Imani Helm DO PCP - General Family Medicine 09/25/19 Enchilada Maker Relationship Specialty Start Date End Date Imani Helm DO PCP - General Family Medicine 09/25/19 Enchilada Maker Relationship Specialty Start Date End Date Imani Helm DO PCP - General Family Medicine 09/25/19 Enchilada Maker Relationship Specialty Start Date End Date Imani Helm DO PCP - General Family Medicine 09/25/19 Enchilada Maker Relationship Specialty Start Date End Date Imani Helm DO PCP - General Family Medicine 09/25/19 Enchilada Maker Relationship Specialty Start Date End Date Imani Helm DO PCP - General Family Medicine 09/25/19 Enchilada Maker Relationship Specialty Start Date End Date Imani Helm DO PCP - General Family Medicine 09/25/19 Enchilada Maker Relationship Specialty Start Date End Date Imani Helm DO PCP - General Family Medicine 09/25/19 Enchilada Maker Relationship Specialty Start Date End Date Imani Helm DO PCP - General Family Medicine 09/25/19 Enchilada Maker Relationship Specialty Start Date End Date Imani Helm DO PCP - General Family Medicine 09/25/19 Enchilada Maker Relationship Specialty Start Date End Date Imani Helm DO PCP - General Family Medicine 09/25/19 Enchilada Maker Relationship Specialty Start Date End Date Imani Helm DO PCP - General Family Medicine 09/25/19 Enchilada Maker Relationship Specialty Start Date End Date Imani Helm DO PCP - General Family Medicine 09/25/19 Enchilada Maker Relationship Specialty Start Date End Date Imani Helm DO PCP - General Family Medicine 09/25/19 Enchilada Maker Relationship Specialty Start Date End Date Imani Helm DO PCP - General Family Medicine 09/25/19 Enchilada Maker Relationship Specialty Start Date End Date Imani Helm DO PCP - General Family Medicine 09/25/19 Enchilada Maker Relationship Specialty Start Date End Date Imani Helm DO PCP - General Family Medicine 09/25/19 Enchilada Maker Relationship Specialty Start Date End Date Imani Helm DO PCP - General Family Medicine 09/25/19 Enchilada Maker Relationship Specialty Start Date End Date Imani Helm DO PCP - General Family Medicine 09/25/19 Enchilada Maker Relationship Specialty Start Date End Date Imani Helm DO PCP - General Family Medicine 09/25/19 Enchilada Maker Relationship Specialty Start Date End Date Imani Helm DO PCP - General Family Medicine 09/25/19 Enchilada Maker Relationship Specialty Start Date End Date Imani Helm DO PCP - General Family Medicine 09/25/19 Enchilada Maker Relationship Specialty Start Date End Date Imani Helm [address] [place] [address] PCP - General 07/26/20 Enchilada Maker Relationship Specialty Start Date End Date Imani Helm [address] [place] [address] PCP - General 07/26/20 Enchilada Maker Relationship Specialty Start Date End Date Imani Helm [address] [place] [id number] PCP - General 07/26/20 Enchilada Maker Relationship Specialty Start Date End Date Imani Helm [address] [place] [address] [id number] PCP - General 07/26/20 Enchilada Maker Relationship Specialty Start Date End Date Imani Helm [address] [place] [address] [id number] PCP - General 07/26/20 Enchilada Maker Relationship Specialty Start Date End Date Imani Helm [address] [place] [id number] PCP - General 07/26/20 Enchilada Maker Relationship Specialty Start Date End Date Imani Helm [address] [place] [address] [id number] PCP - General 07/26/20 Enchilada Maker Relationship Specialty Start Date End Date Imani Helm [address] [place] [address] [id number] PCP - General 07/26/20 Team Status: Active Member Role Status Dates Dr. Imani Helm DO Primary Care Provider Active Team Status: Inactive Member Role Status Dates Dr. Imani Helm DO Primary Care Provider Active Start: October 14, 2024 End: October 14, 2024 Dr. Imani Helm DO Referring Provider Active St art: October 14, 2024 End: October 14, 2024 Dr. Kaila Paige MD Attending Provider Active Start: October 14, [...] 2024 End: October 24, 2024 Dr. Kaila Paige MD Attending Provider Active Start: October 24, 2024 End: October 24, 2024 Dr. Kaila Paige MD Referring Provider Active Start: October 24, 2024 End: October 24, 2024 Team Status: Inactive Member Role Status Dates Dr. Imani Helm DO Primary Care Provider Active Start: October 30, 2024 End: October 30, 2024 Dr. Imani Helm DO Referring Provider Active St art: October 30, 2024 End: October 30, 2024 Dr. Kaila Paige MD Attending Provider Active Start: October 30, 2024 End: October 30, 2024 Team Status: Active Member Role Status Dates Dr. Imani Helm DO Primary Care Provider Active Start: October 30, 2024 Dr. Kaila Paige MD Attending Provider Active Start: October 30, 2024 Dr. Kaila Paige MD Referring Provider Active Start: October 30, 2024 Team Status: Inactive Member Role Status Dates Dr. Imani Helm DO Primary Care Provider Active Start: October 30, 2024 End: October 30, 2024 Dr. Kaila Paige MD Attending Provider Active Start: October 30, 2024 End: October 30, 2024 Dr. Kaila Paige MD Referring Provider Active Start: October 30, 2024 End: October 30, 2024 Team Status: Inactive Member Role Status Dates Dr. Imani Helm DO Primary Care Provider Active Start: November 06, 2024 End: November 06, 2024 Dr. Imani Helm DO Referring Provider Active St art: November 06, 2024 End: November 06, 2024 Dr. Kaila Paige MD Attending Provider Active Start: November 06, 2024 End: November 06, 2024 Team Status: Inactive Member Role Status Dates Dr. Imani Helm DO Primary Care Provider Active Start: November 06, 2024 End: November 06, 2024 Dr. Kaila Paige MD Attending Provider Active Start: November 06, 2024 End: November 06, 2024 Dr. Kaila Paige MD Referring Provider Active Start: November 06, 2024 End: November 06, 2024 Team Status: Inactive Member Role Status Dates Dr. Imani Helm DO Primary Care Provider Active Start: November 13, 2024 End: November 13, 2024 Dr. Imani Helm DO Referring Provider Active St art: November 13, 2024 End: November 13, 2024 Dr. Kaila Paige MD Attending Provider Active Start: November 13, 2024 End: November 13, 2024 Team Status: Inactive Member Role Status Dates Dr. Imani Helm DO Primary Care Provider Active Start: November 18, 2024 End: November 18, 2024 Dr. Imani Helm DO Referring Provider Active St art: November 18, 2024 End: November 18, 2024 Jesse Horvath DEVICE REPAIR TECHNICIAN, DEVICE REPAIR TECHNICIAN-C Attending Provider Active Start: November 18, 2024 End: November 18, 2024 Team Status: Inactive Member Role Status Dates Dr. Imani Helm DO Primary Care Provider Active Start: November 18, 2024 End: November 18, 2024 Jesse Horvath DEVICE REPAIR TECHNICIAN, DEVICE REPAIR TECHNICIAN-C Attending Provider Active Start: November 18, 2024 End: November 18, 2024 Jesse Horvath DEVICE REPAIR TECHNICIAN, DEVICE REPAIR TECHNICIAN-C Referring Provider Active Start: November 18, 2024 [...] November 26, 2024 End: November 26, 2024 Team Status: Inactive Member Role Status Dates Dr. Imani Helm DO Primary Care Provider Active Start: December 03, 2024 End: December 03, 2024 Dr. Kaila Paige MD Attending Provider Active Start: December 03, 2024 End: December 03, 2024 Dr. Kaila Paige MD Referring Provider Active Start: December 03, 2024 End: December 03, 2024 Team Status: Active Member Role/Relationship Status Dates Dr. Imani Helm DO Primary Care Provider Active Team Status: Inactive Member Role/Relationship Status Dates Dr. Imani Helm DO Primary Care Provider Active Start: October 14, 2024 End: October 14, 2024 Dr. Imani Helm DO Referring Provider Active St art: October 14, 2024 End: October 14, 2024 Dr. Kaila Paige MD Attending Provider Active Start: October 14, 2024 End: October 14, 2024 Team Status: Inactive Member Role/Relationship Status Dates Dr. Imani Helm DO Primary Care Provider Active Start: October 24, 2024 End: October 24, 2024 Dr. Imani Helm DO Referring Provider Active St art: October 24, 2024 End: October 24, 2024 Dr. Iman Jolley DO Attending Provider Activ e Start: October 24, 2024 End: October 24, 2024 Team Status: Inactive Member Role/Relationship Status Dates Dr. Imani Helm DO Primary Care Provider Active Start: October 24, 2024 End: October 24, 2024 Dr. Kaila Paige MD Attending Provider Active Start: October 24, 2024 End: October 24, 2024 Dr. Kaila Paige MD Referring Provider Active Start: October 24, 2024 End: October 24, 2024 Team Status: Inactive Member Role/Relationship Status Dates Dr. Imani Helm DO Primary Care Provider Active Start: October 30, 2024 End: October 30, 2024 Dr. Imani Helm DO Referring Provider Active St art: October 30, 2024 End: October 30, 2024 Dr. Kaila Paige MD Attending Provider Active Start: October 30, 2024 End: October 30, 2024 Team Status: Inactive Member Role/Relationship Status Dates Dr. Imani Helm DO Primary Care Provider Active Start: October 30, 2024 End: October 30, 2024 Dr. Kaila Paige MD Attending Provider Active Start: October 30, 2024 End: October 30, 2024 Dr. Kaila Paige MD Referring Provider Active Start: October 30, 2024 End: October 30, 2024 Team Status: Inactive Member Role/Relationship Status Dates Dr. Imani Helm DO Primary Care Provider Active Start: November 06, 2024 End: November 06, 2024 Dr. Imani Helm DO Referring Provider Active St art: November 06, 2024 End: November 06, 2024 Dr. Kaila Paige MD Attending Provider Active Start: November 06, 2024 End: November 06, 2024 Team Status: Inactive Member Role/Relationship Status Dates Dr. Imani Helm DO Primary Care Provider Active Start: November 06, 2024 End: November 06, 2024 Dr. Kaila Paige MD Attending Provider Active Start: November 06, 2024 End: November 06, 2024 Dr. Kaila Paige MD Referring Provider Active Start: November 06, 2024 End: November 06, 2024 Team Status: Inactive Member Role/Relationship Status Dates Dr. Imani Helm DO Primary Care Provider Active Start: November 13, 2024 End: November 13, 2024 Dr. Imani Helm DO Referring Provider Active St art: November 13, 2024 End: November 13, 2024 Dr. Kaila Paige MD Attending Provider Active Start: November 13, 2024 End: November 13, 2024 Team Status: Inactive Member Role/Relationship Status Dates Dr. Imani Helm DO Primary Care Provider Active Start: November 18, 2024 End: November 18, 2024 Dr. Imani Helm DO Referring Provider Active St art: November 18, 2024 End: November 18, 2024 Jesse Horvath DEVICE REPAIR TECHNICIAN, DEVICE REPAIR TECHNICIAN-C Attending Provider Active Start: November 18, 2024 End: November 18, 2024 Team Status: Inactive Member Role/Relationship Status Dates Dr. Imani Helm DO Primary Care Provider Active Start: November 18, 2024 End: November 18, 2024 Jesse Horvath DEVICE REPAIR TECHNICIAN, DEVICE REPAIR TECHNICIAN-C Attending Provider Active Start: November 18, 2024 End: November 18, 2024 Jesse Horvath DEVICE REPAIR TECHNICIAN, DEVICE REPAIR TECHNICIAN-C Referring Provider Active Start: November 18, 2024 End: November 18, 2024 Team Status: Inactive Member Role/Relationship Status Dates Dr. Imani Helm DO Primary Care Provider Active Start: November 26, 2024 End: November 26, 2024 Dr. Imani Helm DO Referring Provider Active St art: November 26, 2024 End: November 26, 2024 Dr. Iman Jolley DO Attending Provider Activ e Start: November 26, 2024 End: November 26, 2024 Team Status: Inactive Member Role/Relationship Status Dates Dr. Imani Helm DO Primary Care Provider Active Start: December 03, 2024 End: December 03, 2024 Dr. Kaila Paige MD Attending Provider Active Start: December 03, 2024 End: December 03, 2024 Dr. Kaila Paige MD Referring Provider Active Start: December 03, 2024 End: December 03, 2024 Team Status: Inactive Member Role/Relationship Status Dates Dr. Imani Helm DO Primary Care Provider Active Start: December 24, 2024 End: December 24, 2024 Dr. Imani Helm DO Referring Provider Active St art: December 24, 2024 End: December 24, 2024 Dr. Iman Jolley DO Attending Provider Activ e Start: December 24, 2024 End: December 24, 2024 Team Status: Inactive Member Role/Relationship Status Dates Dr. Imani Helm DO Primary Care Provider Active Start: January 20, 2025 End: January 20, 2025 Dr. Imani Helm DO Referring Provider Active St art: January 20, 2025 End: January 20, 2025 Dr. Iman Jolley DO Attending Provider Activ e Start: January 20, 2025 End: January 20, 2025 Enchilada Maker Relationship Specialty Start Date End Date Imani Helm [facility] [place] [address] PCP - General 07/26/20 Team Status: Inactive Member Role/Relationship Status Dates Dr. Imani Helm DO Primary Care Provider Active Start: October 24, 2024 End: October 24, 2024 Dr. Imani Helm DO Referring Provider Active St art: October 24, 2024 End: October 24, 2024 Dr. Iman Jolley DO Attending Provider Activ e Start: October 24, 2024 End: October 24, 2024 Team Status: Inactive Member Role/Relationship Status Dates Dr. Imani Helm DO Primary Care Provider Active Start: October 24, 2024 End: October 24, 2024 Dr. Kaila Paige MD Attending Provider Active Start: October 24, 2024 End: October 24, 2024 Dr. Kaila Paige MD Referring Provider Active Start: October 24, 2024 End: October 24, 2024 Team Status: Inactive Member Role/Relationship Status Dates Dr. Imani Helm DO Primary Care Provider Active Start: October 30, 2024 End: October 30, 2024 Dr. Imani Helm DO Referring Provider Active St art: October 30, 2024 End: October 30, 2024 Dr. Kaila Paige MD Attending Provider Active Start: October 30, 2024 End: October 30, 2024 Team Status: Inactive Member Role/Relationship Status Dates Dr. Imani Helm DO Primary Care Provider Active Start: October 30, 2024 End: October 30, 2024 Dr. Kaila Paige MD Attending Provider Active Start: October 30, 2024 End: October 30, 2024 Dr. Kaila Paige MD Referring Provider Active Start: October 30, 2024 End: October 30, 2024 Team Status: Inactive Member Role/Relationship Status Dates Dr. Imani Helm DO Primary Care Provider Active Start: November 06, 2024 End: November 06, 2024 Dr. Imani Helm DO Referring Provider Active St art: November 06, 2024 End: November 06, 2024 Dr. Kaila Paige MD Attending Provider Active Start: November 06, 2024 End: November 06, 2024 Team Status: Inactive Member Role/Relationship Status Dates Dr. Imani Helm DO Primary Care Provider Active Start: November 06, 2024 End: November 06, 2024 Dr. Kaila Paige MD Attending Provider Active Start: November 06, 2024 End: November 06, 2024 Dr. Kaila Paige MD Referring Provider Active Start: November 06, 2024 End: November 06, 2024 Team Status: Inactive Member Role/Relationship Status Dates Dr. Imani Helm DO Primary Care Provider Active Start: November 13, 2024 End: November 13, 2024 Dr. Imani Helm DO Referring Provider Active St art: November 13, 2024 End: November 13, 2024 Dr. Kaila Paige MD Attending Provider Active Start: November 13, 2024 End: November 13, 2024 Team Status: Inactive Member Role/Relationship Status Dates Dr. Imani Helm DO Primary Care Provider Active Start: November 18, 2024 End: November 18, 2024 Dr. Imani Helm DO Referring Provider Active St art: November 18, 2024 End: November 18, 2024 Jesse Horvath DEVICE REPAIR TECHNICIAN, DEVICE REPAIR TECHNICIAN-C Attending Provider Active Start: November 18, 2024 End: November 18, 2024 Team Status: Inactive Member Role/Relationship Status Dates Dr. Imani Helm DO Primary Care Provider Active Start: November 18, 2024 End: November 18, 2024 Jesse Horvath DEVICE REPAIR TECHNICIAN, DEVICE REPAIR TECHNICIAN-C Attending Provider Active Start: November 18, 2024 End: November 18, 2024 Jesse Horvath DEVICE REPAIR TECHNICIAN, DEVICE REPAIR TECHNICIAN-C Referring Provider Active Start: November 18, 2024 End: November 18, 2024 Team Status: Inactive Member Role/Relationship Status Dates Dr. Imani Helm DO Primary Care Provider Active Start: November 26, 2024 End: November 26, 2024 Dr. Imani Helm DO Referring Provider Active St art: November 26, 2024 End: November 26, 2024 Dr. Iman Jolley DO Attending Provider Activ e Start: November 26, 2024 End: November 26, 2024 Team Status: Inactive Member Role/Relationship Status Dates Dr. Imani Helm DO Primary Care Provider Active Start: December 03, 2024 End: December 03, 2024 Dr. Kaila Paige MD Attending Provider Active Start: December 03, 2024 End: December 03, 2024 Dr. Kaila Paige MD Referring Provider Active Start: December 03, 2024 End: December 03, 2024 Team Status: Inactive Member Role/Relationship Status Dates Dr. Imani Helm DO Primary Care Provider Active Start: December 24, 2024 End: December 24, 2024 Dr. Imani Helm DO Referring Provider Active St art: December 24, 2024 End: December 24, 2024 Dr. Iman Jolley DO Attending Provider Activ e Start: December 24, 2024 End: December 24, 2024 Team Status: Inactive Member Role/Relationship Status Dates Dr. Imani Helm DO Primary Care Provider Active Start: January 20, 2025 End: January 20, 2025 Dr. Imani Helm DO Referring Provider Active St art: January 20, 2025 End: January 20, 2025 Dr. Iman Jolley DO Attending Provider Activ e Start: January 20, 2025 End: January 20, 2025 Team Status: Inactive Member Role/Relationship Status Dates Dr. Imani Helm DO Primary Care Provider Active Start: February 19, 2025 End: February 19, 2025 Dr. Imani Helm DO Referring Provider Active St art: February 19, 2025 End: February 19, 2025 Dr. Kaila Paige MD Attending Provider Active Start: February 19, 2025 End: February 19, 2025 Team Status: Active Member Role/Relationship Status Dates Dr. Imani Helm DO Primary Care Provider Active Start: February 19, 2025 Dr. Kaila Paige MD Attending Provider Active Start: February 19, 2025 Dr. Kaila Paige MD Referring Provider Active Start: February 19, 2025 Reason for Visit (unrecogniz ed section and content) Reason Comments Infertility Specialty Diagnoses / Procedures Referred By Contac t Referred To Contact [facility] Diagnoses IVF #3 Restart Procedures IVF #[place] [address] [place] [address] [place] [address] [facility] [address] [place] [address] Referral ID Status Reason Start Date Expiration Date Visits Requested Visits Authorized [id number] Authorized Financial Clearance Required - Self Pay Do Not Bill Insurance - SP patient Patient Cleared - True Self-Pay required payment collected Financial Clearance Not Required 2 10/05/2022 99 99 Reason Comments Xochitl/re self pay us and nurse visit Reason Comments Socorro - needs meds for tonight and this wknd Reason Comments freda Reason Comments Rose Marie re sis/hysteroscopy tomorrow Reason Comments FET med orders Reason Comments Returning Patient's Call Reason Comments Infertility Specialty Diagnoses / Procedures Referred By Contac t Referred To Contact [facility] Diagnoses FET package [place] [address] [place] [address] [place] [address] Referral ID Status Reason Start Date Expiration Date Visits Requested Visits Authorized [id number] Authorized Financial Clearance Required - Self Pay Do Not Bill Insurance - SP patient Patient Cleared - True Self-Pay required payment collected Financial Clearance Not Required 01/13/2022 03/14/2022 99 99 Specialty Diagnoses / Procedures Referred By Contac t Referred To Contact [facility] Diagnoses FET package [place] [address] [phone] [place] [phone] Reason Comments Freda/forgot estrogen this morning Reason Comments ques on meds Reason Comments Patient Update Reason Comments Freda A / Lmp today please call pt Called Back Started period today , baselines Sunday? Specialty Diagnoses / Procedures Referred By Contac t Referred To Contact [facility] Diagnoses Encounter for fertility testing Procedures FOLLICULAR US [facility] US PELVIC NONOBSTETRIC IMAGE DCMTN LIMITED/F/U Stuart Guerrero APRN.ENGINEERING LECTURER [address] [id number] [place] [address] Referral ID Status Reason Start Date Expiration Date V isits Requested Visits Authorized [id number] Closed Auto-Generate d Referral 04/23/2022 06/17/2022 6 1 Reason Comments Freda Freda bleeding a lot this am/stopped inj Reason Comments Patient Question Reason Comments Cycle start 02/10 Reason Comments FET thaw plan called back about thaw plan Reason Comments Treatment Planning Specialty Diagnoses / Procedures Referred By Contac t Referred To Contact [facility] Diagnoses Female infertility, unspecified Procedures OFFICE/OUTPATIENT ESTABLISHED LOW MDM 20-29 [place] [address] [id number] [facility] [address] [address] [place] [address] Referral ID Status Reason Start Date Expiration Date Visits Requested Visits Authorized [id number] Authorized Benefit Check 05/03/2022 06/17/2022 5 5 Reason Comments Requires IVF Prior Authorization Reason Comments Did we get her FMLA paperwork Freda/ been bleeding for 13 days consistently light Just an FYI started Wellbutrin 2 weeks ago, can that affect her cycle? Reason Comments monitoring Specialty Diagnoses / Procedures Referred By Contac t Referred To Contact [facility] F[facility] Diagnoses IVF #3 Restart Procedures IVF #3 [place] [address] [address] [facility] [address] [place] [id number] Reason Comments Infertility Specialty Diagnoses / Procedures Referred By Contac t Referred To Contact [facility] Diagnoses Female infertility Procedures FOLLICULAR US [facility] US PELVIC NONOBSTETRIC IMAGE DCMTN LIMITED/F/U Shelby Rojas PA-C [address] [place] [address] [facility] [address] [place] [address] Referral ID Status Reason Start Date Expiration Date V isits Requested Visits Authorized [id number] Closed Auto-Generate d Referral 07/05/2022 07/05/2023 6 6 Reason Comments Patient Update Reason Comments order injections Reason Comments Next Steps Reason Comments re medication/was it called in SEt up baseline for tomorrow at [facility] d prefers between 7 and 8 am Specialty Diagnoses / Procedures Referred By Contac t Referred To Contact [facility] Diagnoses Female infertility Procedures FOLLICULAR US [facility] US PELVIC NONOBSTETRIC IMAGE DCMTN LIMITED/F/U Marina Boswell, POLYGRAPH TECHNICIAN.ENGINEERING LECTURER [address] [place] [address] [facility] [address] [place] [address] Referral ID Status Reason Start Date Expiration Date V isits Requested Visits Authorized [id number] Closed Auto-Generate d Referral 08/28/2022 08/28/2023 6 1 Specialty Diagnoses / Procedures Referred By Valarie t Referred To Contact [facility] Diagnoses Female infertility, unspecified Procedures IVF PACKAGE IVF #4 [place] [address] [place] [address] [facility] [place] [address] [place] [address] Referral ID Status Reason Start Date Expiration Date Visits Requested Visits Authorized [id number] Authorized Financial Clearance Required - Self Pay Do Not Bill Insurance - SP patient Financial Clearance Not Required Patient Cleared - True Self-Pay required payment collected 08/25/2022 11/23/2022 99 99 Reason Comments pt states meds are on back order Referral ID Status Reason Start Date Expiration Date Visits Requested Visits Authorized [id number] Authorized Auto-Generat ed Referral 11/14/2022 06/17/2023 6 6 Reason Comments Freda re appt tomorrow Reason Comments switching pharamacy Reason Comments cd 1 Reason Comments Opened in Error Reason Comments [facility] Patient Care Conference Reason Onset Date Comments General Inquiry 04/08/2024 Reason Onset Date Comments Insurance Issue 04/09/2024 Reason Comments Anorectal Malformation Specialty Diagnoses / Procedures Referred By Valarie t Referred To Contact Diagnoses Anorectal malformation Procedures XR Abdomen - Supine Chaitanya Akins APN [address] [phone] Referral ID Status Reason Start Date Expiration Date V isits Requested Visits Authorized [id number] New Request 04/09/2024 1 1 Specialty Diagnoses / Procedures Referred By Rajatac t Referred To Contact RAD Interventional Diagnoses Anorectal malformation Procedures IR Cecostomy Exchange with Fluoro IR Consult Chaitanya Akins APN [address] [place] [address] Referral ID Status Reason Start Date Expiration Date V isits Requested Visits Authorized [id number] New Request 04/08/2024 1 1 Reason Onset Date Comments DME Prescription 04/13/2024 Reason Comments Anorectal Malformation Reason Comments Ultrasound Specialty Diagnoses / Procedures Referred By Valarie t Referred To Contact Diagnoses Advanced maternal age, 1st , first trimester Procedures US OB DETAILED ANATOMY Raquel Lainez MD [address] [facility] [address] [place] [phone] Phone: tel: fax: Referral ID Status Reason Start Date Expiration Date V isits Requested Visits Authorized [id number] New Request 11/06/2024 12/01/2025 1 1 Reason Comments Initial Visit Transfer OB Specialty Diagnoses / Procedures Referred By Contac t Referred To Contact Diagnoses Encounter for ultrasound to assess interval growth of fetus Encounter for follow-up ultrasound of anatomy Procedures US OB GROWTH/DATING > 14WEEKS Birgit Wood MD [address] [place] [address] [address] [place] [address] Phone: tel: fax: Referral ID Status Reason Start Date Expiration Date V isits Requested Visits Authorized [id number] New Request 12/30/2024 01/24/2026 1 1 Reason Comments New Patient Evaluation Specialty Diagnoses / Procedures Referred By Contac t Referred To Contact Echocardiology Diagnoses resulting from in vitro fertilization, antepartum Procedures ECHOCARDIOGRAM, Raquel Lainez MD [address] [facility] [address] [place] [phone] Phone: tel: fax: Referral ID Status Reason Start Date Expiration Date Visits Re quested Visits Authorized [id number] Closed 02/18/2025 1 1 Goals (unrecognized section and content) Goals may [...] BE BASED ON THE PRIMARY CLINICAL RECORDS. [facility]. provides no warranty or guarantee of the accuracy or completeness of information in this document.
[2025-02-25 07:12] LABS: Glucose GTT-Gestation. Fasting 86 mg/dL (<105)
[2025-02-25 08:59] LABS: Glucose GTT-Gestational 1 Hr 164 mg/dL (<190)
[2025-02-25 10:17] LABS: Glucose GTT-Gestational 2 Hr 119 mg/dL (<165)
[2025-02-25 11:17] LABS: Glucose GTT-Gestational 3 Hr 86 L (<145)
== END | disposition home or self-care (01) ==
LOC: LAB 06:43
PROVIDERS: PCP Family Medicine; Referring Provider Obstetrics & Gynecology; Visit Provider Obstetrics & Gynecology
DX: Z13.1 Encounter for screening for diabetes mellitus (principal)
CPT/HCPCS: 36415; 82951; 82952

== ENCOUNTER 2025-03-05 21:02 | Observation (INO) | payer BC, SELFPAY ==
[2025-03-05 21:04] VITALS: BP 132/85; PULSE 102; RESP 20; TEMP 36.9; O2SAT 100; BMI 31.0
--- NOTE | 2025-03-05 21:51 | EDS_ITS ---
HPI HPI - GI History of Present Illness Chief Complaint: Constipation Informant: patient and spouse/S.O. Abdominal Pain/Flank Pain Onset: Days Context: Gradual Onset Timing: Continuous Quality: Aching Location: Diffuse Current Severity: Moderate Maximum Severity: Moderate Worsened by: Nothing Relieved by: Nothing Nausea/Vomiting/Emesis GI Symptom: Positive for Nausea and Vomiting Onset: Days Severity: Mild Diarrhea/Melena/Hematochezia GI Symptom: Positive for - (Constipation for days up to a week. Has had small bowel movements.); Negative for Diarrhea, Melena or Hematochezia Onset: Days Associated Symptoms Associated Symptoms: Negative for Dysuria, Frequency, Hematuria or Urgency Narrative Narrative: 39-year-old female G1, P0 Ab0 about 20 weeks . Complaining constipation for about a week with abdominal pain. She had a small bowel movement on Sunday. 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 She is a high risk and is going to deliver via scheduled C- section at [facility]. She has had prior rectal surgeries. 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 Prior tubal ligation. This is secondary to in vitro fertilization. Denies any vaginal bleeding. No dysuria. Prior similar symptoms: Yes Recent Illness/Hospitalization: No PFSH [facility] Medical History History of ESBL E. 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 Route DAILY 10/14/24 Unknown History mL rectal solution through stoma with 9ml liqui d castile soap multivitamin no.47-iron fum 27 cap PO 10/14/24 Unknown History mg-folate no.1 1 mg-dha 300 mg capsule (PNV-DHA) soap ea topical 10/14/24 Unknown History levothyroxine 62.5 mcg capsule 62.5 mcg PO QDAY #30 ca ps 11/03/24 Unknown Rx sulfamethoxazole 800 1 tab PO QDAY #30 tabs 11/24 Unknown Rx mg-trimethoprim 160 mg tablet (Bactrim DS) famotidine 20 mg tablet (Pepcid) 20 mg PO BID #60 tabs 02/19/25 Unknown Rx Allergy/AdvReac Type Severity Reaction Status Date / Time ampicillin Allergy Hives Verified 03/05/25 21:08 Family History Grandfather Cancer, Onset Age: 55 Paternal lung cancer then mets to throat cancer- smoking Father Diabetes Uncle Multiple sclerosis paternal Mother Lymphedema Grandfather Lymphedema Maternal Surgical History Previous back surgery History of rectal surgery H/O cervical polypectomy History of tubal ligation Social History adopted: No household members: spouse housing: house current occupational status: unemployed current occupational exposures/hazards: No pets and animals: Yes pets and animals: dog(s) history of recent travel: Yes (- June) out of state: Yes out of country: Yes sexually active: Yes Smoking Status: Never smoker alcohol intake: current alcohol intake frequency: a few times a month details: not while substance use type: does not use well-balanced diet: daily or most days caffeine: No eating out: 1-3 times/week during the past year weight has: remained stable what type of physical activity do you participate in: walking and other details: pilates frequency: 3-4 times per week duration: 15-30 minutes/day sotero/jewish: None seatbelt use: always do you feel safe at home: Yes 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: [employer]- [employer] ROS ROS ED ROS Narrative Constipation. Nausea. Mild vomiting. Constitutional Constitutional ED: Denies chills or fever(s) ENT ENT ED: Denies ear pain Cardiovascular Cardiovascular: Denies chest pain Respiratory/Chest Respiratory/Chest: Denies cough or dyspnea Gastrointestinal Gastrointestinal: Reports abdominal pain, constipation, nausea and vomiting; Denies diarrhea or melena Genitourinary Genitourinary ED: Denies dysuria or hematuria Musculoskeletal Musculoskeletal: Denies arthralgias or back pain Integumentary Denies abscess or Abrasions Neurologic Neurologic: Denies headache(s) Psychiatric Psychiatric: Denies anxiety or depression Endocrine Endocrinology: Denies polydipsia, polyphagia or polyuria Hematologic/Lymphatic Hematologic/Lymphatic: Denies easy bleeding, easy bruising or lymphadenopathy Allergic/Immunologic Allergic/Immunologic ED: Reports mouth swelling, tongue swelling and urticaria EXAM Physical Exam Narrative Exam Narrative: 39-year-old female vital signs stable afebrile. Does not look septic or toxic. H EENT exam pupils round react light. Moist mucous membranes. Neck nontender. Lungs are clear to auscultation bilateral. Heart rate about 100 no murmur. Chest wall ribs nontender. Abdomen distended. Diffusely tender. Chronic indwelling abdominal catheter. Positive bowel sounds. Moving all 4 extremities. Nontender no edema. Normal strength. Neurologically she is awake alert. Answering questions following commands. Const Vital Signs: 03/05/25 21:04 Temperature 98.5 F Temperature Source Oral Pulse Rate 102 H Respiratory Rate 20 H Blood Pressure 132/85 H Blood Pressure Mean 100 Pulse Ox 100 Oxygen Delivery Method Room Air Positive well nourished and well developed; Negative for cachectic, contractures or unkempt General Appearance ED: well developed; Negative for unkempt, cachectic, contractures or pallor Nutritional Appearance: Negative for cachectic HEENT Reports moist mucous membranes normocephalic and atraumatic Eyes PERRL and EOMs intact bilaterally Neck no lymphadenopathy, supple and no JVD Resp normal respiratory effort and clear to auscultation bilaterally Cardio regular rate, regular rhythm, S1 normal heart sound, S2 normal heart sound and no murmurs Cardio Narrative: Rate about 100. GI no masses; Negative for non-tender or non-distended Inspection: abdominal distention Auscultation: normoactive bowel sounds Palpation: soft and tender; Negative for guarding, rigid or rebound tenderness present Back/Spine no CVA tenderness General Back: Negative for CVA tenderness Cervical Spine: Negative for cervical spine tenderness Thoracic Spine / Upper Back: Negative for thoracic spinal tenderness Lumbar Spine / Lower Back: Negative for lumbar spinal tenderness Extremity full ROM General Extremety ED: Negative for edema or tenderness General Extremity: Negative for edema Neuro CN's II-XII intact bilaterally and moves all extremities Sensorium / Orientation: alert, oriented to person, oriented to place and oriented to time Motor Exam: strength 5/5 throughout Psych mental status grossly normal and thought process normal Appearance: Negative for unkempt Skin no wounds General Skin Exam: Negative for jaundice or pallor Lesions: no lesions Rashes: no rashes MDM MDM MDM Narrative Medical decision making narrative: Female 29 -oexs-lyx with constipation. Limited bowel movements in the last week. Plain x-ray will be obtained and screening labs. Repeat exam around 10:50 PM. Patient initially did not want the morphine and would only take Tylenol. Is not controlling her pain she will now take the IV morphine and Zofran. I went over with her and her her initial test results. I do think she is definitely constipated but cannot rule out a bowel obstruction the way she is distended and her pain. The x-ray is consistent with constipation but does not rule out obstruction. We discussed that we will obtain a CAT scan. She will also be given IV potassium due to her potassium being 2.9. I spoke to the patient's OB on-call Dr. Larkin. Given the patient's congenital abnormalities of her abdomen and pelvis. Her discomfort. Will admit her. Treated with GoLytely. Try to improve her constipation hopefully she can go home tomorrow. This will also help control her pain and monitor . Blood pressure hypertension patient and are comfortable with the plan. History & Record Review Discussion w/independent historian: Patient and Family Additional record(s) reviewed:: Prior inpatient record, Prior outpatient record, Prior ED visit and Prior labs Lab Data Attestation: I reviewed the patient's lab results. Lab results narrative: CBC shows a white count of 14.4. H&H 9.6 and 27.5. Platelets 252. Likely electrolytes show a potassium of 2.9. Gap 15. BUN and creatinine of 12 and 1.47. Glucose 104. Liver enzymes unremarkable. Lipase normal at 33. heart tones per the nurse of 148. Labs: Laboratory Results - last 24 hr 03/05/25 21:55 WBC 14.4 H RBC 3.04 L Hgb 9.6 L Hct 27.5 L MCV 90.5 MCH 31.6 MCHC 34.9 RDW Std Deviation 44.5 H RDW Coeff of Alexander 13.6 Plt Count 252 MPV 10.7 Immature Gran % (Auto) 0.500 Neut % (Auto) 82.5 H Lymph % (Auto) 10.2 L Barber % (Auto) 6.1 Eos % (Auto) 0.3 Baso % (Auto) 0.4 Absolute Neuts (auto) 11.8 H Absolute Lymphs (auto) 1.46 Nucleated RBC % 0 Sodium 137 Potassium 2.9 L Chloride 104 Carbon Dioxide 18.0 L Anion Gap 15 BUN 12 Creatinine 1.47 H Estim Creat Clear Calc 53.79 Est GFR (MDRD) Non-Af 47 L BUN/Creatinine Ratio 8.0 L Glucose 104 H Calcium 8.7 Total Bilirubin 0.75 AST 28 ALT 17 Alkaline Phosphatase 69 Total Protein 6.1 Albumin 3.4 L Globulin 2.8 Albumin/Globulin Ratio 1.2 Lipase 33 Radiography Diagnostic Testing: Clinical Impression(s) from Imaging Studies KUB X-Ray 03/05/25 21:55 IMPRESSION: CONSTIPATION. Reading Location: [facility] CAT scan of the abdomen shows constipation. No obstruction. . Hydronephrosis and renal cysts. Discharge Plan Dx/Rx/DC Orders Clinical Impression: Abdominal pain, Constipation, , Congenital abnormality Disposition Disposition: [facility]
--- NOTE | 2025-03-05 21:55 | RAD_ITS ---
PROCEDURE: ABDOMEN SINGLE VIEW 03/05/2025 REASON FOR EXAM: CONSTIPATION TECHNIQUE: Procedure Code: RADABD Modality: DX Procedure: ABDOMEN SINGLE VIEW FINDINGS: Bowel gas: Moderate constipation identified with fecal material distributed throughout the colon. No evidence of bowel obstruction. Calcifications: No suspicious calcifications. Bones: The bones are unremarkable. Other: silhouette projects over the mid-abdomen. RAD/Abdomen Single View IMPRESSION: CONSTIPATION. Reading Location: [facility]
--- OUTSIDE RECORDS SUMMARY | 2025-03-05 21:55 | XMS RPT_ITS | CCD ---
Author Organization [facility] Care Team Providers Care Snowboarder Name Role Phone MERLIN CALDERA Attending Unavailable MERLIN CALDERA Primary Care Unavailable MERLIN CALDERA Admitting Unavailable Malys DO Imani Gary Primary Care Provider [phone] MalImani gregg DO Primary Care Provider [phone] Imani Helm DO Primary Care Provider Malmarysol DOClarea Gary Primary Care Provider SOREN SEBASTIAN Referring Unavailabl e SOREN SEBASTIAN Attending Unavailabl e MALYS, IMANI A Primary Care Unavailable CENE CARPENTER SUPERVISOR~[id number], CENDoe Tuttle Admitting Unavailable CENE CARPENTER SUPERVISOR~[id number], EDINSON Tuttle Attending Unavailable MALYS, IMANI A Primary Care Unavailable ISRRAEL MART~[phone], ISRRAEL Dean Admitting Unavailable ISRRAEL MART~[phone], ISRRAEL Dean Attending Unavailable MARONI ORGAN GRINDER, MELVIN L Consulting Unavaila ble MALYS, IMANI A Primary Care Unavailable MARONI ORGAN GRINDER, MELVIN L Consulting Unavaila ble LEONIE MART, ISIDRA Consulting Unavailable LEONIE MART, ISIDRA Consulting Unavailable MALYS, IMANI A Primary Care Unavailable DUDZIAK, STUART Referring Unavailable MALYS, IMANI A Primary Care Unavailable DUDZIAK, STUART Referring Unavailable DUDZIAK, STUART Referring Unavailable MALYS, IMANI A Primary Care Unavailable MALYS, IMANI A Primary Care Unavailable DUDZIAK, STUART Referring Unavailable Malys, Imani A Primary Care Provider Dr. Imani Helm DO Primary Care Provider Dr. Imani Helm DO Referring Provider [phone] Beatriz MART, Dr. Bright Attending Provider Dr. Iman Jolley DO Attending Provider Beatriz MART, Dr. Bright Referring Provider Yuliet MANAGER OF CORPORATE COMMUNICATIONS-C, Jesse Attending Provider [phone] Austin MANAGER OF CORPORATE COMMUNICATIONS-C, Jesse Referring Provider [phone] MALYS, IMANI A Primary Care Unavailable SANTIAGO WELLS Attending Unavailable JOANNEANTHFELICITAS, KAILA E Referring Unavailabl e MALYS, IMANI A Primary Care Unavailable SANTIAGO WELLS Attending Unavailable JOANNEANTHFELICITAS, KAILA E Referring Unavailabl e Unavailable Primary Care Provider Unavailabl e JESSE EDWARDS Referring Unavailable Lis Wilson Attending Unavailable JESSE EDWARDS Referring Unavailable ANDRES FITZGERALD Referring Unavailable RAQUEL LAINEZ Referring Unavailable LYN ARGUELLES Attending Unavailable CHAITANYA AKINS Referring Unavailabl e ANDRES FITZGERALD Attending Unavailable CHAITANYA AKINS Referring Unavailabl e Dr. Imani Helm DO Primary Care Provider Dr. Imani Helm DO Referring Provider Beatriz MART, Dr. Bright Attending Provider [phone] Malys, Imani Primary Care Unavailable Vande Iman Brenner Referring Unavailabl e Vande VeldeIman Attending Unavailabl e Malys, Imani Primary Care Unavailable Kaila Henderson Referring Unavailable Kaila Henderson Attending Unavailable Malys, Imani Primary Care Unavailable Malys, Imani Referring Unavailable Kaila Henderson Attending Unavailable Malys, Imani Primary Care Unavailable Malys, Imani Referring Unavailable Kaila Henderson Attending Unavailable Malys, Imani Primary Care Unavailable Malys, Imani Referring Unavailable Yuliet MANAGER OF CORPORATE COMMUNICATIONSJesse Attending Unavailable Malys, Imani Primary Care Unavailable Malys, Imani Referring Unavailable Vande VeldeIman Attending Unavailabl e Malys, Imani Primary Care Unavailable Malys, Imani Referring Unavailable Vande Velde, Iman Attending Unavailabl e MarcanthonyKaila Attending Unavailable Malys, Imani Primary Care Unavailable Malys, Imani Referring Unavailable Malys, Imani Primary Care Unavailable Malys, Imani Referring Unavailable Vande Velde Iman Attending Unavailabl e Marcanthony, Kaila Attending Unavailable Malys, Imani Referring Unavailable Malys, Imani Primary Care Unavailable Malys, Imani Primary Care Unavailable Malys, Imani Referring Unavailable Marcanthony, Kaila Attending Unavailable Malys, Imani Primary Care Unavailable Malys, Imani Referring Unavailable Vande Iman Brenner Attending Unavailabl e Malys, Imani Primary Care Unavailable Marcanthony, Kaila Referring Unavailable Marcanthony, Kaila Attending Unavailable Malys, Imani Primary Care Unavailable Austin MANAGER OF CORPORATE COMMUNICATIONS, Jesse Referring Unavailable Yuliet MANAGER OF CORPORATE COMMUNICATIONS, Jesse Attending Unavailable Marcanthony, Kaila Attending Unavailable Marcanthony, Kaila Referring Unavailable Malys, Imani Primary Care Unavailable Malys, Imani Primary Care Unavailable Marcanthony, Kaila Referring Unavailable Marcanthony, Kaila Attending Unavailable Malys, Imani Primary Care Unavailable Marcanthony, Kaila Referring Unavailable Marcanthony, Kaila Attending Unavailable LAINEZ, RAQUEL D Referring Unavailable SELF, SELF Referring Unavailable LAINEZ, RAQUEL D Attending Unavailable LAINEZ, RAQUEL D Referring Unavailable LAINEZ, RAQUEL D Attending Unavailable SELF, SELF Referring Unavailable Allergies Allergy Classification Reported Allergen(s) Allergy Type Date of Onset Reaction(s) Facility (20 sources) Ampicillin; Translations: [AMPICILLIN] Drug Allergy 1 Other: See Emani, Isaura Mckeon [facility] (1 source) Ampicillin Drug Allergy [facility] (1 source) Ampicillin Drug Allergy [facility] Medications Current Medications Medication Drug Class(es) Dates Sig (Normalized) Sig (Original) amphetamine aspartate 5 mg / amphetamine sulfate 5 mg / dextroamphetamine saccharate 5 mg / dextroamphetamine sulfate 5 mg oral tablet (20 sources) Central Nervous System Stimulant Start: 02-03-2025 dextroamphetamin e-amphetamine 20 mg tablet (Adderall) [None received] 02/03/2025 Active take 1 capsule by nv ut once daily amphetamine-dextroamphetamine XR 15 MG C ap SR 24HR capsule Take 1 capsule by mouth daily. Active Comment on above: Take 15 mg by mouth once daily. aspirin 81 mg delayed release oral tablet (17 sources) Platelet Aggregation Inhibitor, Nonsteroidal Anti-inflammatory Drug Start: 10-14-2024 take 1 tablet by mouth once daily Aspirin 81 mg tablet,delayed release (DR/EC) Active 81 mg PO daily October 14, 2024 12:00am aspirin 81 MG Ch ew Tab chewable tablet Chew. Active castile soap packets for enema use [...] Choline Dihydrogen Citrate ( CHOLINE CITRATE PO) (4 sources) Choline Dihydrog en Citrate (CHOLINE CITRATE [...] fosfomycin 3000 mg powder for oral solution (9 sources) Start: 11-22-2024 take 1 dose by [...] enema TAKING WITH 500ML WATER Active Lacto No.00-Wwzquo-Lop-Larch 25B cell-25B cell-50 mg capsule (12 sources) Start: 10-14-2024 Lacto No.76-Bi gidx-Iol-Lstoi 25B cell-25B cell-50 mg capsule Active NMA PO October 14, 2024 12:00am levothyroxine (20 sources) l-Thyro xine Start: 12-28-2024 Tirosint 62.5 MCG ca psule 12/28/2024 Active Start: 11-03-2024 take 1 capsule by mo uth once daily Levothyroxine 62.5 mcg capsule Active 62.5 ug PO daily 14 01November 03, 2024 1:55pm Start: 11-03-2024 take 1 capsule by mo uth once daily Levothyroxine 62.5 mcg capsule Active [...] 02/09/2025 Discontinued take 1 capsule by mo uth once daily Tirosint 62.5 mcg capsule Take 1 capsule by mouth once daily. Active Multivit 76-Zmqk-Mmwxmv 1-Dh a (Pnv-Dha) 27 mg iron-1 mg -300 mg capsule (12 sources) Start: 10-14-2024 Multivit 47-Ir on-Folate 1-Dha (Pnv-Dha) 27 mg iron-1 mg -300 mg capsule Active NMA PO October 14, 2024 12:00am 25/iron fum/folic/d lozano (-1 ORAL) (14 sources) 25/iron fum/folic/dha (-1 ORAL) Take by mouth. Active 25/iron fum/folic/dha (-1 ORAL) Take by mouth. 0 Active MV-Min-Fe Fum-FA-DHA ( 1 PO) (3 sources) MV-Min- Fe Fum-FA-DHA ( 1 PO) Take by mouth. Active Soap soap (12 sources) Start: 5 Soap soap Active NMA TOPICAL October 14, 2024 12:00am sulfamethoxazole 800 mg / trimethoprim 160 mg oral tablet (7 sources) Dihydrofolate Reductase Inhibitor Antibacterial, Sulfonamide Antimicrobial Start: 5 sulfamethoxazole 800 mg-trimethoprim 160 mg tablet [None [...] release oral tablet (20 sources) Aminoketone Start: End: take 1 tablet by mouth once daily [...] Units by mouth once daily. chorionic gonadotropin 17237 unt/ml injectable solution (20 sources) Gonadotropin Start: 023 inject 84788 [IU] by subcutaneous injection once chorionic gonadotropin (PREGNYL) 10,000 unit solr 10,000 Units as directed. Mix vials as directed per nursing in office. Administer subcutaneous. 2 Each 1 08/28/2022 Active Start: 04-11-2022 End: 08-11-2022 inject 42713 [IU] by subcutaneous injection once chorionic gonadotropin [...] Comment on above: Take 2 tablets by [facility] once daily. doxycycline hyclate 100 mg oral tablet (20 sources) Tetracycline-class Drug Start: 12-27-19 End: 08-11-19 take 1 tablet by mouth twice daily doxycycline (VIBRA-TABS) 100 mg tablet Take 1 tablet by mouth twice daily. 8 tablet 0 12/26/2021 08/11/2022 Discontinued Comment on above: Take 1 tablet by [facility] twice daily. estradiol 2 mg oral tablet [...] Comment on above: Take 3 tablets by [facility] once daily. Ethinyl Estradiol / ethynodiol (20 sources) Progestin, Estrogen Start: 07-06-2022 take 1 tablet by mouth once daily ethynodiol diacetate-ethinyl estradiol 1 mg-35 mcg (ZOVIA 1/35E, 28,) 1-35 mg-mcg per tablet Take 1 tablet by mouth once daily. 28 tablet 0 07/06/2022 Suspended Start: 07-06-2022 take 1 tablet by [facility] once daily ethynodiol diacetate-ethinyl estradiol 1 mg-35 [...] / nitrofurantoin, monohydrate 75 mg oral capsule (16 sources) Nitrofuran Antibacterial Start: 10-28-19 End: 03-03-20 take 1 capsule by mouth twice daily at mealtime Nitrofurantoin, macrocrystal-monohy drate, 100 MG capsule TAKE 1 CAPSULE BY MOUTH TWICE DAILY WITH FOOD FOR 7 DAYS 11/02/2024 03/03/2025 Discontinued (Therapy completed) PNV no.95/ferrous fum/folic ac ( ORAL) (20 [...] as directed. For low dose HCG Pregnyl 09027 units with 5ml syringe and needle to mix and 15 insulin syringes. 1 Each 0 08/28/2022 Active Start: 08-28-2022 Sharps Contain er-Ins Syrng-Ndl 1/2 mL 30 x 1/2 syrg 1 Container as directed. Pregnyl trigger 07239 Units #1 with syringes and needles. 1 Each 0 08/28/2022 Active Comment on above: 1 Container as direc jose ramon. For low dose HCG Pregnyl 57453 units with 5ml syringe and needle to mix and 15 insulin syringes. 1 Container as direc jose ramon. Pregnyl trigger 91137 Units #1 with syringes and needles. sodium [...] 10-01-2019 Chronic Comment on above: DOC ONLY Immunizations and screening for infectious disease (3 sources) Requires diphtheria, tetanus and pertussis vaccination; Translations: [Encounter for immunization] Onset: 03-03-2025 02-26-2025 Episodic Inflammatory diseases of female pelvic organs (20 [...] assess feasibility. Other aftercare (1 source) Other buttermaker (current) drug therapy; Translations: [OTH [facility] CURRENT DRUG THERAPY] Onset: 11-13-2023 Episodic Other [...] trimester] 10-14-2024 Episodic Comment on above: , WSE 05/27/25, 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) PRR , WES , boy 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) DOC ONLY PRR , WES 05/27/25, boy 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) Other complications of (20 sources) Advanced maternal [...] first trimester] 12-30-2024 Episodic Other complications of (5 sources) Multigravida of advanced maternal age; Translations: [...] trimester] Onset: 12-09-2024 Episodic Other complications of (2 sources) Supervision of elderly multigravida, second trimester; Translations: [Supervision of elderly multigravida, second trimester] Onset: 03-03-2025 Episodic Other complications of (2 sources) Supervision of elderly primigravida, first trimester; Translations: [Supervision of elderly primigravida, first trimester] Onset: 12-30-2024 Episodic Other congenital anomalies (20 sources) Vertebral [...] supervision of normal , unspecified, unspecified trimester] Onset: 03-03-2025 10-14-2024 Episodic Comment on above: Pt has had extensive genetic testing, donor egg, baby boy Pt has had extensive genetic testing, donor egg, baby boy, 1st trimester nl growth & normal NT, 18-20wk anatomy, CL & BPP, 22-24 echo Other screening for suspected conditions (not mental disorders or infectious disease) (5 sources) Encounter for screening for diabetes mellitus; Translations: [Encounter for other specified screening] Onset: 01-22-2025 Episodic Residual codes; unclassified (3 [...] Unclassified (1 source) Anorectal Malformation Onset: 10-09-2024 Unclassified (1 source) OB Reminders Onset: 01-26-2025 01-26-2025 Urinary tract infections (20 sources) Urinary tract [...] 10-30-2024 Episodic Other complications of (1 source) Spotting [...] Test Name Value Interpretation Reference Range Facility Gestational GTT 3HR 100gon 0 02-25-2025 GEST GTT 100gm Normal [facility] Comment on above: Order Comment: Y Result Comment: FAST ING 86 Col: 02/25/25 0646 GLUCOSE TOLERANCE TEST FOR Reference Interval GESTATIONAL DIABETES Fasting <105 mg/dL 1 hour <190 mg/dl 2 hour <165 mg/dl 3 hour <145 mg/dl 1 HR GLU 164 Col: 02/25/25 0815 2 HR GLU 119 Col: 02/25/25 0918 3 HR GLU 86 Col: 02/25/25 1016 Performed By: #### L 509.4006, L3890.6301, L100.0100, BTS, L3890.6102, L509.8002, L3890.6006, L506.0400, L501.9520 #### [facility] [address] [place], [place], [id number] CBC W/Diff, Automatedon 09-0 Absolute Lymph 1.48 X10 3/uL Normal 0.83-4.51 [facility] Comment on above: Performed By: #### L 509.4006, L3890.6301, L100.0100, BTS, L3890.6102, L509.8002, L3890.6006, L506.0400, L501.9520 #### [facility] [address] [place], [address] Absolute Neut 8.7 X10 3/uL High 2.0-7.7 [facility] Comment on above: Performed By: #### L 509.4006, L3890.6301, L100.0100, BTS, L3890.6102, L509.8002, L3890.6006, L506.0400, L501.9520 #### [facility] [address] [place], [address] Basophils/100 WBC (Bld) 0.4 % Normal 0-1 [facility] Comment on above: Performed By: #### L 509.4006, L3890.6301, L100.0100, BTS, L3890.6102, L509.8002, L3890.6006, L506.0400, L501.9520 #### [facility] [address] [place], [address] Eosinophils/100 WBC (Bld) 1.2 % Normal 0-5 [facility] Comment on above: Performed By: #### L 509.4006, L3890.6301, L100.0100, BTS, L3890.6102, L509.8002, L3890.6006, L506.0400, L501.9520 #### [facility] [address] [place], [address] Erythrocyte distribution width (RBC) [Ratio] 13.5 % Normal 11.6-14.6 [facility] Comment on above: Performed By: #### L 509.4006, L3890.6301, L100.0100, BTS, L3890.6102, L509.8002, L3890.6006, L506.0400, L501.9520 #### [facility] [address] [place], [address] Hematocrit (Bld) [Volume fraction] 32.5 % Low 37-47 [facility] Comment on above: Performed By: #### L 509.4006, L3890.6301, L100.0100, BTS, L3890.6102, L509.8002, L3890.6006, L506.0400, L501.9520 #### [facility] [address] [place], [address] Hemoglobin (Bld) [Mass/Vol] 11.0 g/dL Low 12.0-15.0 [facility] Comment on above: Performed By: #### L 509.4006, L3890.6301, L100.0100, BTS, L3890.6102, L509.8002, L3890.6006, L506.0400, L501.9520 #### [facility] [address] [place], [address] IG% 0.500 Normal 0.0-0.9 [facility] Comment on above: Result Comment: IG% - Immature Granulocytes (promyelocytes, myelocytes and metamyelocytes) > 1% indicates that a LEFT SHIFT is Present. Performed By: #### L 509.4006, L3890.6301, L100.0100, BTS, L3890.6102, L509.8002, L3890.6006, L506.0400, L501.9520 #### [facility] [address] [place], [address] Lymphocytes/100 WBC (Bld) 13.6 % Low 19-41 [facility] Comment on above: Performed By: #### L 509.4006, L3890.6301, L100.0100, BTS, L3890.6102, L509.8002, L3890.6006, L506.0400, L501.9520 #### [facility] [address] [place], [address] MCH (RBC) [Entitic mass] 31.3 pg Normal 27.0-32.0 [facility] Comment on above: Performed By: #### L 509.4006, L3890.6301, L100.0100, BTS, L3890.6102, L509.8002, L3890.6006, L506.0400, L501.9520 #### [facility] [address] [place], [address] MCHC (RBC) [Mass/Vol] 33.8 g/dL Normal 32-[address] [facility] Comment on above: Performed By: #### L 509.4006, L3890.6301, L100.0100, BTS, L3890.6102, L509.8002, L3890.6006, L506.0400, L501.9520 #### [facility] [address] [place], [address] MCV (RBC) [Entitic vol] 92.3 fL Normal 81-99 [facility] Comment on above: Performed By: #### L 509.4006, L3890.6301, L100.0100, BTS, L3890.6102, L509.8002, L3890.6006, L506.0400, L501.9520 #### [facility] [address] [place], [address] Monocytes/100 WBC (Bld) 4.5 % Normal 0-10 [facility] Comment on above: Performed By: #### L 509.4006, L3890.6301, L100.0100, BTS, L3890.6102, L509.8002, L3890.6006, L506.0400, L501.9520 #### [facility] [address] [place], [address] Neutrophils/100 WBC (Bld) 79.8 % High 47-70 [facility] Comment on above: Performed By: #### L 509.4006, L3890.6301, L100.0100, BTS, L3890.6102, L509.8002, L3890.6006, L506.0400, L501.9520 #### [facility] [address] [place], [address] Nucleated RBC (Bld) [#/Vol] 0 10*3/uL Normal 0-5 [facility] Comment on above: Performed By: #### L 509.4006, L3890.6301, L100.0100, BTS, L3890.6102, L509.8002, L3890.6006, L506.0400, L501.9520 #### [facility] [address] [place], [address] Platelet mean volume (Bld) [Entitic vol] 11.2 fL Normal 6.2-12.0 [facility] Comment on above: Performed By: #### L 509.4006, L3890.6301, L100.0100, BTS, L3890.6102, L509.8002, L3890.6006, L506.0400, L501.9520 #### [facility] [address] [place], [address] Platelets (Bld) [#/Vol] 261 10*3/uL Normal 150-450 [facility] Comment on above: Performed By: #### L 509.4006, L3890.6301, L100.0100, BTS, L3890.6102, L509.8002, L3890.6006, L506.0400, L501.9520 #### [facility] [address] [place], [address] RBC (Bld) [#/Vol] 3.52 10*6/uL Low 4.2-5.4 [facility] Comment on above: Performed By: #### L 509.4006, L3890.6301, L100.0100, BTS, L3890.6102, L509.8002, L3890.6006, L506.0400, L501.9520 #### [facility] [address] [place], [address] RDW SD 45.1 fl High 35.1-43.9 [facility] Comment on above: Performed By: #### L 509.4006, L3890.6301, L100.0100, BTS, L3890.6102, L509.8002, L3890.6006, L506.0400, L501.9520 #### [facility] [address] [place], [place], [address] WBC (Bld) [#/Vol] 10.9 10*3/uL Normal 4.4-11.0 [facility] Comment on above: Performed By: #### L 509.4006, L3890.6301, L100.0100, BTS, L3890.6102, L509.8002, L3890.6006, L506.0400, L501.9520 #### [facility] [address] [place], [place], [address] Glucose Challenge Gest 1H 50 trudi 02-19-2025 GLU GEST 50g 1H 152 mg/dL High 70-140 [facility] Comment on above: Performed By: #### L 509.4006, L3890.6301, L100.0100, BTS, L3890.6102, L509.8002, L3890.6006, L506.0400, L501.9520 #### [facility] [address] [place], [place], [address] HIVon 02-19-2025 HIV Non-Reactive Normal Nonreactive [facility] Comment on above: Result Comment: Non- Reactive Reactive Repeatedly reactive samples must be confirmed according to CDC recommended confirmatory algorithms. The subresults for either HIVAG or AHIV can be used as an aid in the selection of the confirmation algorithm for reactive samples. Send out specimens with Reactive results to [facility] for confirmation. Order the HIV antibody detection and differentiation: lc#[id number] Performed By: #### L 509.4006, L3890.6301, L100.0100, BTS, L3890.6102, L509.8002, L3890.6006, L506.0400, L501.9520 #### [facility] [place], [address] Suspect Artist Office Visit Reporton 02-19-2025 Suspect Artist Office Visit Report [facility] [address], [address] [place] [address] OFFICE VISIT Date of Service: 02/19/25 MR#: [id number] Acct: [id number] Name: LATONYA RODARTE Rep #: [id number] : 1985 Provider: Dr. Kaila cali MD Age/Sex: 39/F [place] 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 ?-???-???-???-???-??? (more content not included)... Normal [facility] Syphilis Antibodieson 2024 Syphilis Abs Non-Reactive Normal Nonreactive [facility] Comment on above: Performed By: #### L 509.4006, L3890.6301, L100.0100, BTS, L3890.6102, L509.8002, L3890.6006, L506.0400, L501.9520 #### [facility] [address] [place], [address] ECHOCARDIOGRAM, FETALon 08-2 SUMMARY: 1. No structural heart abnormalities. 2. Normal segmental cardiac anatomy. 3. No valve abnormalities. 4. Normal biventricular size and function. 5. Normal cardiac rate and rhythm. 6. Normal echocardiogram. [facility] CARDIOLOGY ECHOCARDIOGRAM REPORT Pt. Name: LATONYA RODARTE Study Date: 02/09/2025 Study Time: 1:40:12 PM eMPI#: [id number] Date: 1985 Patient Age: 39 years Pt. Gender: F Exam Site: [facility] Outside Referrring Physician: [id number] RAQUEL LAINEZ Primary Gamemaster: Sofia Vincent Interpreting Fellow: Ashley Dia Interpreting [...] patent foramen ovale or patent ductus arteriosus. Claiborne's Name: Lyn Arguelles cc report (more content not included)... [facility] OB ultrasound panelon 2024 - OBSTETRICS REPORT (Signed Final 01/22/2025 01:53 pm) - PATIENT INFO: ID #: [id number] : [birth year] (39 yrs)(F) Name: LATONYA RODARTE Visit Date: 01/22/2025 12:55 pm - PERFORMED BY: Performed By: Paris Sevilla MS, RDMS, RVT Attending: Yudy Ashley MD Referred By: Raquel Lainez MD Ref. Address: [address] [place] [address] Secondary Phy.: Iman Jackson DO Address: , Location: [place] - SERVICE(S) PROVIDED: Follow-up 36896 - INDICATIONS: Encounter for follow-up ultrasound of [...] weeks given AMA. Reviewed perinatology consultation at [facility] and agreement with 37wk delivery to help coordinate surgical team and avoid labor. - RECOMMENDATIONS: Thank you for asking us to see LATONYA RODARTE. I personally viewed and interpreted these images and I have approved this report. A copy of this report will be sent to Raquel Lainez MD. Our ultrasound lab is accredited by [employer] ([employer]). If you would like to discuss your patient's results, please do not hesitate to contact us at [phone]. ------- (more content not included)... RADIOLOGY System, Provider Not In - 01/22/2025 - OBSTETRICS REPORT (Signed Final 01/22/2025 01:53 pm) - PATIENT INFO: ID #: [id number] : [birth year] (39 yrs)(F) Name: LATONYA RODARTE Visit Date: 01/22/2025 12:55 pm - PERFORMED BY: Performed By: Paris Sevilla MS, RDMS, RVT Attending: Yudy Ashley MD Referred By: Raquel Lainez MD Ref. Address: [address] [place] [address] Secondary Phy.: Iman Jackson DO Address: , Location: [place] - SERVICE(S) PROVIDED: Follow-up 60667 - INDICATIONS: Encounter for follow-up ultrasound of [...] weeks given AMA. Reviewed perinatology consultation at [facility] and agreement with 37wk delivery to help coordinate surgical team and avoid labor. - RECOMMENDATIONS: Thank you for asking us to see LATONYA RODARTE. I personally viewed and interpreted these images and I have approved this report. A copy of this report will be sent to Raquel Lainez MD. Our ultrasound lab is accredited by [employer] ([employer]). If you would like to discuss your patient's results, please do not hesitate to contact us at [phone]. - Yudy Ashley MD Electronically Signed Final Report 01/22/2025 01:53 pm - [facility] Radiology Study observation (narrative) [facility] OB ultrasound panelOrdered B y: Provider System on 01-22-2025 [facility] Laboratory - Chemistry and C hemistry - challengeOrdered By: Iman Brenner on 01-20-2025 Glucose Ql (U) Negative [facility] - UrinalysisOrder ed By: Iman Jordin on 01-20-2025 Protein Ql (U) Negative [facility] Suspect Artist Office Visit Reporton 01-20-2025 Suspect Artist Office Visit Report [facility]'s [address], [address] [place] [address] OFFICE VISIT Date of Service: 01/20/25 MR#: [id number] Acct: [id number] Name: LATONYA RODARTE Rep #: [id number] : 1985 Provider: Dr. Iman Silverman DO Age/Sex: 39/F [place] [facility] [place]: Signed Intake Vital Signs 11/13/24 08:10 11/18/24 14:11 12/24/24 11:50 01/20/25 15:40 01/20/25 15:41 Height 5 ft 4 in 5 ft 4 in 5 ft 4 in 5 ft 4 in 5 ft 4 in Weight: 177 lb 3 oz BMI 30.4 BP 113/68 Intake Visit Reasons: 22wk ob * DOC ONLY Shuttle Bus Driver Required: No Is patient in pain?: No Allergies ampicillin Allergy (Verified 01/20/25 15:38) Hives Medications ???Medication ???Instructions ???Recorded ???Confirmed ???Type Lactobacillus 25 billion cap PO 10/14/24 01/20/25 History cell-Bifido 25 billion ryqf-RVN-uvwtf capsule aspirin 81 mg tablet,delayed 81 mg [...] 3-4 times per week duration: 15-30 minutes/day sotero/confucianist: None seatbelt use: always do you feel safe at home: Yes 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 Normal [facility] AFP MATERNAL SCREEN, NTD ONL Yon 12-30-2024 AFP 71.6 ng/mL Normal [facility] Comment on above: Performed By: #### A FPNTP #### [facility] (DEFAULT) [address] [place] [address] 23041 AFP ADDITIONAL COMMENTS DNR Normal [facility] Comment on above: Performed By: #### A FPNTP #### [facility] (DEFAULT) [address] [place] [address] 13767 AFP Interpretation SEE COMMENTS Normal [facility] Comment on above: Result Comment: RESU LT: Screen negative for neural tube defects. Performed By: #### A FPNTP #### [facility] (DEFAULT) [address] [place] [address] 87744 AFP MoM 1.57 MoM Normal <2.50 [facility] Comment on above: Performed By: #### A FPNTP #### [facility] (DEFAULT) [address] [place] [address] 66546 AFP RECOMMENDED FOLLOW UP None. Normal [facility] Comment on above: Performed By: #### A FPNTP #### [facility] [address] [place] [address] 94130 AFP RESULTS SUMMARY Normal risk Normal [facility] Comment on above: Performed By: #### A FPNTP #### [facility] (DEFAULT) [address] [place] [address] 59056 CALCULATED AGE AT WES 39 years Normal [facility] Comment on above: Performed By: #### A FPNTP #### [facility] (DEFAULT) [address] [place] [address] 54474 WES by LMP 05/27/2025 [facility] Comment on above: Performed By: #### A FPNTP #### [facility] (DEFAULT) [address] [place] [address] 35551 WES BY U/S SCAN DNR Normal [facility] Comment on above: Performed By: #### A FPNTP #### [facility] (DEFAULT) [address] [place] [address] 62348 Family History of NTD No Normal [facility] Comment on above: Performed By: #### A FPNTP #### [facility] (DEFAULT) [address] [place] [address] 33687 GA ON COLELCTION BY U/S SCAN DNR [facility] Comment on above: Performed By: #### A FPNTP #### [facility] (DEFAULT) [address] [place] [address] 78496 GA USED IN RISK ESTIMATE Dates estimate Normal [facility] Comment on above: Performed By: #### A FPNTP #### [facility] (DEFAULT) [address] [place] [address] 57861 Gestational Age Calculated at Collection 18,6 wk,d Normal [facility] Comment on above: Performed By: #### A FPNTP #### [facility] (DEFAULT) [address] [place] [address] 85831 Initial or Repeat Testing Initial testing Normal [facility] Comment on above: Performed By: #### A FPNTP #### [facility] (DEFAULT) [address] [place] [address] 62427 Insulin Depend Diabetic No Normal [facility] Comment on above: Performed By: #### A FPNTP #### [facility] (DEFAULT) [address] [place] [address] 87949 Maternal Date of 87 Normal [facility] Comment on above: Performed By: #### A FPNTP #### [facility] (DEFAULT) [address] [place] [address] 74778 MATERNAL WEIGHT (MWGT) DNR Normal [facility] Comment on above: Performed By: #### A FPNTP #### [facility] (DEFAULT) [address] [place] [address] 57177 NEURAL TUBE DEFECT RISK ESTIMATE 1/,400 Normal [facility] Comment on above: Performed By: #### A FPNTP #### [facility] (DEFAULT) [address] [place] [address] 41905 NUMBER OF CHORIONS Unknown Normal [facility] Comment on above: Performed By: #### A FPNTP #### [facility] (DEFAULT) [address] [place] [address] 84673 Number of Fetuses 1 Normal [facility] Comment on above: Performed By: #### A FPNTP #### [facility] (DEFAULT) [address] [place] [address] 83960 Patient Race: non-Black Normal [facility] Comment on above: Performed By: #### A FPNTP #### [facility] (DEFAULT) [address] [place] [address] 20461 Physician Phone [phone] Normal [facility] Comment on above: Performed By: #### A FPNTP #### [facility] (DEFAULT) [address] [place] [address] 51367 due to IVF? No Normal [facility] Comment on above: Performed By: #### A FPNTP #### [facility] (DEFAULT) [address] [place] [address] 80999 PREVIOUS PREGANCY W/ NEURAL TUBE DEFECT No Normal [facility] Comment on above: Performed By: #### A FPNTP #### [facility] (DEFAULT) [address] [place] [address] 03985 RECALCULATED MATERNAL SERUM SCREEN DNR [facility] Comment on above: Performed By: #### A FPNTP #### [facility] (DEFAULT) [address] [place] [address] 04704 Smoking Status non-Smoker [facility] Comment on above: Performed By: #### A FPNTP #### [facility] (DEFAULT) [address] [place] [address] 46883 SPECIMEN COLLECTION DATE 12/30/24 [facility] Comment on above: Performed By: #### A FPNTP #### [facility] (DEFAULT) [address] [place] [address] 76344 TEST INFORMATION SEE COMMENTS [facility] Comment on above: Result Comment: This screening [...] developed and its performance characteristics determined by [facility] in a manner consistent with CLIA requirements. This test has not been cleared or approved by the U.S. Food and Drug Administration. Test Performed by: [facility] [address] [place] [address] Petrophysicist: Shanice Shepherd Ph.D.; CLIA# [id number] Performed By: #### A FPNTP #### [facility] ([facility]) [address] [place] [address] OB ultrasound panelon 2024 - OBSTETRICS REPORT (Signed Final 12/30/2024 04:11 pm) - PATIENT INFO: ID #: [id number] : [birth year] (39 yrs)(F) Name: LATONYA RODARTE Visit Date: 12/30/2024 08:01 am - PERFORMED BY: Performed By: Paris Sevilla, MS, RDMS, RVT Attending: Birgit Wood MD Referred By: Raquel Lainez MD Ref. Address: [address] [place] [address] Secondary Phy.: Iman Jackson DO Address: , Location: [place] - SERVICE(S) PROVIDED: Detailed [address] [facility] Transvaginal 52603 - INDICATIONS: Encounter for anatomic survey Z36 [...] 6d Date: 08/20/24 WES: 05/27/25 U/S Today: 4d WES: 05/22/25 Best: 18w 6d Det. [...] 6d 88 % HC: 164.1 mm G.Age: w 1d 57 % AC: 138.8 mm G.Age: w 2d 60 % FL: 31.2 mm G.Age: [...] Non-visualized Ductal Arch: Limited SVC: Limited Cardiac [place]: (more content not included)... RADIOLOGY System, Provider Not In - 12/30/2024 - OBSTETRICS REPORT (Signed Final 12/30/2024 04:11 pm) - PATIENT INFO: ID #: [id number] : [birth year] (39 yrs)(F) Name: LATONYA RODARTE Visit Date: 12/30/2024 08:01 am - PERFORMED BY: Performed By: Paris Sevilla, MS, RDMS, RVT Attending: Birgit Wood MD Referred By: Raquel Lainez MD Ref. Address: [address] [place] [address] Secondary Phy.: Iman Jackson DO Address: , Location: [place] - SERVICE(S) PROVIDED: Detailed [address] [facility] Transvaginal 22557 - INDICATIONS: Encounter for anatomic survey Z36 [...] 6d Date: 08/20/24 WES: 05/27/25 U/S Today: w 4d WES: 05/22/25 Best: 18w 6d Det. [...] Non-visualized Ductal Arch: Limited SVC: Limited Cardiac [place]: Normal Diaphragm: Visualized LT and RT 3 [...] 05/27/2025. 2. Harika (more content not included)... [facility] Radiology Study observation (narrative) [facility] OB ultrasound panelOrdered B y: Provider System on 12-30-2024 [facility] Laboratory - Chemistry and C hemistry - challengeOrdered By: Iman Brenner on 12-24-2024 Glucose Ql (U) Negative [facility] - UrinalysisOrder ed By: Iman Brenner on 12-24-2024 Protein Ql (U) Negative [facility] Suspect Artist Office Visit Reporton 12-24-2024 Suspect Artist Office Visit Report [facility]'s [address], [address] [place] [address] OFFICE VISIT Date of Service: 12/24/24 MR#: [id number] Acct: [id number] Name: LATONYA RODARTE Rep #: [id number] : 1985 Provider: Dr. Iman Silverman DO Age/Sex: 39/F Location: [facility] Status: Signed Intake Vital Signs 11/13/24 08:10 11/18/24 14:11 11/26/24 14:39 12/24/24 11:50 Height 5 ft 4 in 5 ft 4 in 5 ft 4 in 5 ft 4 in Weight: 171 lb BMI 29.3 BP 123/73 H Intake Visit Reasons: 18wk ob * DOC ONLY Shuttle Bus Driver Required: No Is patient in pain?: No Feel stressed/tense/nervous/ anxious/difficulty sleeping: not at all Allergies ampicillin Allergy (Verified 12/24/24 11:50) Hives Medications ???Medication ???Instructions ???Recorded ???Confirmed ???Type Lactobacillus 25 billion cap PO 10/14/24 12/24/24 History cell-Bifido 25 billion sgnm-ATH-inqfz capsule aspirin 81 mg tablet,delayed 81 mg [...] 3-4 times per week duration: 15-30 minutes/day sotero/confucianist: None seatbelt use: always do you feel safe at home: Yes 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 Date Name GA/Weeks Outcome Route Bth Weight Gen Labor Lgth Anesthesia Del Locatn Provider FOB Unknown February 25, 2024 4 spontaneous Delivery Date: Last Updated by: Ginny Mcintyre failed IVF transfer HPI 18wk ob * [...] -???-???-???-???-???-?? ?- (more content not included)... Normal [facility] T4 Free Directon 12-03-2024 T4 FREE DIRECT 1.10 ng/dL Normal 0.76-1.46 [facility] Comment on above: Performed By: #### L 509.4006, L3890.6301, L100.0100, BTS, L3890.6102, L509.8002, L3890.6006, L506.0400, L501.9520 #### [facility] [address] [place], [place], [id number] T4 freeOrdered By: Iman Brenner on 12-03-2024 Free T4 [Mass/Vol] 1.10 ng/dL 0.76-1.46 [facility] TSH DL <= 0.005 mIU/L QnOrde red By: Iman Brenner on 12-03-2024 TSH Qn 1.370 uIU/mL 0.300-4.200 [facility] Thyroid Stim Hormone (TSH)on 12-03-2024 TSH 1.370 uIU/mL Normal 0.300-4.200 [facility] Comment on above: Performed By: #### L 506.0400, L501.9520 #### [facility] [address] [place], [place], [address] Laboratory - Chemistry and C hemistry - challengeOrdered By: Iman Brenner on 11-26-2024 Glucose Ql (U) Negative [facility] - UrinalysisOrder ed By: Iman Brenner on 11-26-2024 Protein Ql (U) Negative [facility] Suspect Artist Office Visit Reporton 11-26-2024 Suspect Artist Office Visit Report [address], [address] [place] [address] OFFICE VISIT Date of Service: 11/26/24 MR#: [id number] Acct: [id number] Name: CAYDENLATONYAGary DIAZ Rep #: [id number] : 1985 Provider: Dr. Iman Silverman DO Age/Sex: 39/F Location: [facility] Status: Signed Intake Vital Signs 01/26/21 17:03 11/18/24 14:11 11/26/24 14:39 11/26/24 14:39 Height 5 ft 4 in 5 ft 4 in 5 ft 4 in 5 ft 4 in Weight: 172 lb BMI 29.5 BP 109/73 Intake Visit Reasons: 14wk OB * DOC ONLY Shuttle Bus Driver Required: No Is patient in pain?: No Allergies ampicillin Allergy (Verified 11/26/24 14:38) Hives Medications ???Medication ???Instructions ???Recorded ???Confirmed ???Type Lactobacillus 25 billion cap PO 10/14/24 11/26/24 History cell-Bifido 25 billion ejxw-OMS-zkugm capsule aspirin 81 mg tablet,delayed 81 mg [...] 3-4 times per week duration: 15-30 minutes/day sotero/confucianist: None seatbelt use: always do you feel safe at home: Yes 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 (more content not included)... Normal [facility] Urine Cultureon 11-22-2024 [facility]RC RESULTS CALLED TO VIVIANA Tellez 11/21/24 0911 Nolvia Leon. REPORT READ BACK BY . Urine Culture Copy of report sent to Infection Control Printer [id number] 11/21/24 0911 [place]. ESBL Escherichia coli [place] Count 80,000-100,000 MARKER ESBL producing OrganismA MARKER ESBL producing OrganismA [place] Count 50,000-80,000 Enterococcus faecalis Ampicillin Islt MARIAMA [...] S Vancomycin Islt MARIAMA 2 S Normal [facility] Comment on above: Performed By: #### L 509.4006, L3890.6301, L100.0100, BTS, L3890.6102, L509.8002, L3890.6006, L506.0400, L501.9520 #### [facility] [address] [place], [address] Progress Noteon 11-21-2024 Asset Protection Officer Authentication Interface Message Text [facility] Antepartum Consult Note I had [...] Insecurity: No Food Insecurity (04/10/2024) Received from [facility] Hunger Vital Sign Worried About Running Out of Food in the Last Year: Never true Ran Out of Food in the Last Year: Never true Transportation Needs: No Transportation Needs (04/10/2024) Received from [facility] PRAPARE - Transportation Lack of Transportation (Medical): No Lack of Transportation (Non-Medical): No Housing Stability: Low Risk (04/10/2024) Received from [facility] Housing Stability Vital Sign Unable to [...] 2d with an WES of 05/27/2025. 2. [place] rump length measurement is consistent with established [...] primary surgical (more content not included)... Normal [facility] Laboratory - Chemistry and C hemistry - challengeOrdered By: Jesse Horvath on 11-18-2024 Bilirubin Ql (U) Negative [facility] Glucose Ql (U) Negative [facility] Ketones Ql (U) Negative [facility] pH (U) 5 [pH] [facility] Specific gravity (U) [Rel density] 1.015 [facility] Urobilinogen (U) [Mass/Vol] Negative [facility] Laboratory - Hematology and Cell countsOrdered By: Jesse Horvath on 11-18-2024 Hemoglobin Ql (U) Negative [facility] Laboratory - Specimen inform ationOrdered By: Jesse Horvath on 11-18-2024 Clarity (U) Clear [facility] Color (U) YELLOW [facility] - UrinalysisOrder ed By: Jesse Horvath on 11-18-2024 Nitrite Ql (U) Negative [facility] Protein Ql (U) Negative [facility] No Panel InformationOrdered By: Jesse Horvath on 11-18-2024 Urine Leukocytes Negatve [facility] Urine Non-Hemolyzed Blood [facility] Suspect Artist Office Visit Reporton 11-18-2024 Suspect Artist Office Visit Report [facility] [address], [address] [place] [address] OFFICE VISIT Date of Service: 11/18/24 MR#: [id number] Acct: [id number] Name: LATONYA RODARTE Rep #: [id number] : 1985 Provider: FERNANDO monet Age/Sex: 39/F [place] [facility] [place] Signed Intake Vital Signs 11/13/24 08:10 11/18/24 14:11 Height 5 ft 4 in 5 ft 4 in Weight: 171 lb BMI 29.3 BP 126/75 H Intake Visit Reasons: UTI check Chief Complaint: UTI Check Shuttle Bus Driver Required: No Is patient in pain?: No Allergies ampicillin Allergy (Verified 11/18/24 14:11) Hives Medications ???Medication ???Instructions ???Recorded ???Confirmed ???Type Lactobacillus 25 billion cap PO 10/14/24 11/18/24 History cell-Bifido 25 billion moak-CLS-vjhgj capsule aspirin 81 mg tablet,delayed 81 mg [...] 3-4 times per week duration: 15-30 minutes/day sotero/confucianist: None seatbelt use: always do you feel safe at home: Yes 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 Normal [facility] Transvaginal w/Preg USon Transvaginal w/Preg US [facility] [address] [place] [address] Transvaginal w/Preg US MR#: [id number] Acct: [id number] Name: LATONYA RODARTE Rep #: [id number] : 1985 F 39 From: Glenda White PCP: Dr. Imani Helm, DO Status: REG CLI Study: Transvaginal w/Preg US Date of Exam: 11/18/24 Exam# [id number] Ordering Dr: Jesse Horvath MANAGER OF CORPORATE COMMUNICATIONS MANAGER OF CORPORATE COMMUNICATIONS -C PROCEDURE: TRANSVAGINAL W/PREG US 11/18/2024 REASON [...] ovaries are not well seen. Reading Location: [id number] CC: FERNANDO Horvath; Dr. Imani Helm DO Business Information Consultant: Signed Normal [facility] Urine cultureOrdered By: Lesley Horvath on 11-18-2024 Bacteria identified Cx Nom (U) ESBL Escherichia coli Abnormal [facility] Bacteria identified Cx Nom (U) Enterococcus faecalis Abnormal [facility] Suspect Artist Office Visit Reporton 11-13-2024 Suspect Artist Office Visit Report [facility] [address], [address] [place] [address] OFFICE VISIT Date of Service: 11/13/24 MR#: [id number] Acct: [id number] Name: LATONYA RODARTE Rep #: [id number] : 1985 Provider: Dr. Kaila cali MD Age/Sex: 39/F [place] [facility] Status: Signed Intake Vital Signs 10/30/24 09:10 11/06/24 14:14 11/13/24 08:10 Height 5 ft 4 in 5 ft 4 in 5 ft 4 in Weight: 167 lb 2 oz BMI 28.7 BP 109/64 Intake Visit Reasons: 12 wk ob Shuttle Bus Driver Required: No Is patient in pain?: No Allergies ampicillin Allergy (Verified 11/13/24 08:12) Hives Medications ???Medication ???Instructions ???Recorded ???Confirmed ???Type Lactobacillus 25 billion cap PO 10/14/24 11/13/24 History cell-Bifido 25 billion sqfd-KFF-ucusg capsule aspirin 81 mg tablet,delayed 81 mg [...] 3-4 times per week duration: 15-30 minutes/day sotero/confucianist: None seatbelt use: always do you feel safe at home: Yes 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 ?-???-???-???-??? (more content not included)... Normal [facility] Urine Cultureon 11-07-2024 URC Culture exhibits no growth. Normal [facility] Comment on above: Performed By: #### L 509.4006, L3890.6301, L100.0100, BTS, L3890.6102, L509.8002, L3890.6006, L506.0400, L501.9520 #### [facility] [address] [place], [address] Suspect Artist Office Visit Reporton 11-06-2024 Suspect Artist Office Visit Report [facility] [address], [address] [place] [address] OFFICE VISIT Date of Service: 11/06/24 MR#: [id number] Acct: [id number] Name: LATONYA RODARTE Rep #: [id number] : 1985 Provider: Dr. Kaila cali MD Age/Sex: 39/F [place] [facility] Status: Signed Intake Vital Signs 10/30/24 09:10 11/06/24 14:08 11/06/24 14:14 Height 5 ft 4 in 5 ft 4 in 5 ft 4 in Weight: 172 lb 2 oz BMI 29.5 BP 102/70 Intake Visit Reasons: Repeat Urine Culture Chief Complaint: Urine Culture Shuttle Bus Driver Required: No Is patient in pain?: No Allergies ampicillin Allergy (Verified 11/06/24 14:04) Hives Medications ???Medication ???Instructions ???Recorded ???Confirmed ???Type Lactobacillus 25 billion cap PO 10/14/24 11/06/24 History cell-Bifido 25 billion gzba-ACM-ifzwt capsule aspirin 81 mg tablet,delayed 81 mg [...] 3-4 times per week duration: 15-30 minutes/day sotero/confucianist: None seatbelt use: always do you feel safe at home: Yes 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 (more content not included)... Normal [facility] Urine cultureOrdered By: Bk Henderson on 11-06-2024 Bacteria identified Cx Nom (U) Culture exhibits no growth. [facility] Absolute lymphocyte countOrd ered By: Kaila Hsuivanna on 10-30-2024 Lymphocytes Auto (Unsp spec) [#/Vol] 2.06 10*3/uL 0.83-4.51 [facility] Absolute neutrophil countOrd ered By: Kaila Hsuivanna on 10-30-2024 Neutrophils (Bld) [#/Vol] 5.6 10*3/uL 2.0-7.7 [facility] Automated lymphocyte count a s percentage of total leukocytesOrdered By: Kaila Hsuivanna on 10-30-2024 Lymphocytes/100 WBC Auto (Unsp spec) 24.3 % 19-41 [facility] Basophil percentageOrdered B y: Kaila Hsuivanna on 10-30-2024 Basophils/100 WBC (Bld) 0.6 % 0-1 [facility] CBC W/Diff, Automatedon 10-16 Absolute Lymph 2.06 X10 3/uL Normal 0.83-4.51 [facility] Comment on above: Performed By: #### L 509.4006, L3890.6301, L100.0100, BTS, L3890.6102, L509.8002, L3890.6006, L506.0400, L501.9520 #### [facility] [address] [place], [address] Absolute Neut 5.6 X10 3/uL Normal 2.0-7.7 [facility] Comment on above: Performed By: #### L 509.4006, L3890.6301, L100.0100, BTS, L3890.6102, L509.8002, L3890.6006, L506.0400, L501.9520 #### [facility] [address] [place], [address] Basophils/100 WBC (Bld) 0.6 % Normal 0-1 [facility] Comment on above: Performed By: #### L 509.4006, L3890.6301, L100.0100, BTS, L3890.6102, L509.8002, L3890.6006, L506.0400, L501.9520 #### [facility] [address] [place], [address] Eosinophils/100 WBC (Bld) 0.9 % Normal 0-5 [facility] Comment on above: Performed By: #### L 509.4006, L3890.6301, L100.0100, BTS, L3890.6102, L509.8002, L3890.6006, L506.0400, L501.9520 #### [facility] [address] [facility] [place], [address] Erythrocyte distribution width (RBC) [Ratio] 12.9 % Normal 11.6-14.6 [facility] Comment on above: Performed By: #### L 509.4006, L3890.6301, L100.0100, BTS, L3890.6102, L509.8002, L3890.6006, L506.0400, L501.9520 #### [facility] [address] [place], [address] Hematocrit (Bld) [Volume fraction] 41.8 % Normal 37-47 [facility] Comment on above: Performed By: #### L 509.4006, L3890.6301, L100.0100, BTS, L3890.6102, L509.8002, L3890.6006, L506.0400, L501.9520 #### [facility] [address] [place], [address] Hemoglobin (Bld) [Mass/Vol] 13.7 g/dL Normal 12.0-15.0 [facility] Comment on above: Performed By: #### L 509.4006, L3890.6301, L100.0100, BTS, L3890.6102, L509.8002, L3890.6006, L506.0400, L501.9520 #### [facility] [address] [place], [address] IG% 0.200 Normal 0.0-0.9 [facility] Comment on above: Result Comment: IG% - Immature Granulocytes (promyelocytes, myelocytes and metamyelocytes) > 1% indicates that a LEFT SHIFT is Present. Performed By: #### L 509.4006, L3890.6301, L100.0100, BTS, L3890.6102, L509.8002, L3890.6006, L506.0400, L501.9520 #### [facility] [address] [place], [address] Lymphocytes/100 WBC (Bld) 24.3 % Normal 19-41 [facility] Comment on above: Performed By: #### L 509.4006, L3890.6301, L100.0100, BTS, L3890.6102, L509.8002, L3890.6006, L506.0400, L501.9520 #### [facility] [address] [place], [address] MCH (RBC) [Entitic mass] 30.3 pg Normal 27.0-32.0 [facility] Comment on above: Performed By: #### L 509.4006, L3890.6301, L100.0100, BTS, L3890.6102, L509.8002, L3890.6006, L506.0400, L501.9520 #### [facility] [address] [place], [address] MCHC (RBC) [Mass/Vol] 32.8 g/dL Normal 32-[address] [facility] Comment on above: Performed By: #### L 509.4006, L3890.6301, L100.0100, BTS, L3890.6102, L509.8002, L3890.6006, L506.0400, L501.9520 #### [facility] [address] [place], [address] MCV (RBC) [Entitic vol] 92.5 fL Normal 81-99 [facility] Comment on above: Performed By: #### L 509.4006, L3890.6301, L100.0100, BTS, L3890.6102, L509.8002, L3890.6006, L506.0400, L501.9520 #### [facility] [address] [place], [address] Monocytes/100 WBC (Bld) 7.9 % Normal 0-10 [facility] Comment on above: Performed By: #### L 509.4006, L3890.6301, L100.0100, BTS, L3890.6102, L509.8002, L3890.6006, L506.0400, L501.9520 #### [facility] [address] [place], [address] Neutrophils/100 WBC (Bld) 66.1 % Normal 47-70 [facility] Comment on above: Performed By: #### L 509.4006, L3890.6301, L100.0100, BTS, L3890.6102, L509.8002, L3890.6006, L506.0400, L501.9520 #### [facility] [address] [place], [address] Nucleated RBC (Bld) [#/Vol] 0 10*3/uL Normal 0-5 [facility] Comment on above: Performed By: #### L 509.4006, L3890.6301, L100.0100, BTS, L3890.6102, L509.8002, L3890.6006, L506.0400, L501.9520 #### [facility] [address] [place], [address] Platelet mean volume (Bld) [Entitic vol] 10.5 fL Normal 6.2-12.0 [facility] Comment on above: Performed By: #### L 509.4006, L3890.6301, L100.0100, BTS, L3890.6102, L509.8002, L3890.6006, L506.0400, L501.9520 #### [facility] [address] [place], [address] Platelets (Bld) [#/Vol] 320 10*3/uL Normal 150-450 [facility] Comment on above: Performed By: #### L 509.4006, L3890.6301, L100.0100, BTS, L3890.6102, L509.8002, L3890.6006, L506.0400, L501.9520 #### [facility] [address] [place], [address] RBC (Bld) [#/Vol] 4.52 10*6/uL Normal 4.2-5.4 [facility] Comment on above: Performed By: #### L 509.4006, L3890.6301, L100.0100, BTS, L3890.6102, L509.8002, L3890.6006, L506.0400, L501.9520 #### [facility] [address] [place], [address] RDW SD 43.1 fl Normal 35.1-43.9 [facility] Comment on above: Performed By: #### L 509.4006, L3890.6301, L100.0100, BTS, L3890.6102, L509.8002, L3890.6006, L506.0400, L501.9520 #### [facility] [address] [place], [address] WBC (Bld) [#/Vol] 8.5 10*3/uL Normal 4.4-11.0 [facility] Comment on above: Performed By: #### L 509.4006, L3890.6301, L100.0100, BTS, L3890.6102, L509.8002, L3890.6006, L506.0400, L501.9520 #### [facility] [address] [place], [place], [address] Eosinophil percentageOrdered By: Kaila Henderson on 10-30-2024 Eosinophils/100 WBC (Bld) 0.9 % 0-5 [facility] Erythrocyte distribution wid th ratioOrdered By: Kaila Henderson on 10-30-2024 Erythrocyte distribution width (RBC) [Ratio] 12.9 % 11.6-14.6 [facility] Erythrocyte distribution wid th standard deviationOrdered By: Kaila Henderson on 10-30-2024 Erythrocyte distribution width (RBC) [Ratio] 43.1 fl 35.1-43.9 [facility] HIVon 10-30-2024 HIV Non-Reactive Normal Nonreactive [facility] Comment on above: Result Comment: Non- Reactive Reactive Repeatedly reactive samples must be confirmed according to CDC recommended confirmatory algorithms. The subresults for either HIVAG or AHIV can be used as an aid in the selection of the confirmation algorithm for reactive samples. Send out specimens with Reactive results to [facility] for confirmation. Order the HIV antibody detection and differentiation: lc#[id number] Performed By: #### L 509.4006, L3890.6301, L100.0100, BTS, L3890.6102, L509.8002, L3890.6006, L506.0400, L501.9520 #### [facility] [address] [place], [address] Hematocrit Auto (Bld) [Volum e fraction]Ordered By: Kaila Henderson on 10-30-2024 Hematocrit (Bld) [Volume fraction] 41.8 % 37-47 [facility] Hemoglobin measurementOrdere d By: Kaila Henderson on 10-30-2024 Hemoglobin (Bld) [Mass/Vol] 13.7 g/dL 12.0-15.0 [facility] Hepatitis C Antibodyon 10-30 Hepatitis C Ab Non-Reactive Normal Nonreactive [facility] Comment on above: Result Comment: Reac tive: Presumptive evidence of antibodies to HCV. Follow CDC recommendations for supplemental testing. Non-Reactive: Antibodies to HCV were not detected; does not exclude the possibility of exposure to HCV Reactive Results are presumptive evidence of antibodies to HCV. Follow CDC recommendations for supplemental testing. Order confirmation testing: HCV Quant by PCR testing - HCVPCR lc#[id number] Non Reactive: < 0.8 Equivocal: >/= 0.8 to < 1.0 Reactive: >/= 1.[address] [facility] requires that a reactive/equivocal HCV antibody result be sent out for confirmation. HCV Quant by PCR testing. Performed By: #### L 509.4006, L3890.6301, L100.0100, BTS, L3890.6102, L509.8002, L3890.6006, L506.0400, L501.9520 #### [facility] [address] [place], [place], [address] Immature granulocytes/100 WB C Auto (Bld)Ordered By: Kaila Henderson on 10-30-2024 Immature granulocytes/100 WBC (Bld) 0.200 % 0.0-0.9 [facility] Comment on above: IG% - Immature Granu locytes (promyelocytes, myelocytes and metamyelocytes) > 1% indicates that a LEFT SHIFT is Present. L3890.6102on 10-30-2024 HEP B Surf Ag Non-Reactive Normal Nonreactive [facility] Comment on above: Result Comment: Reac tive: Presumptive evidence of HBV. Repeatedly reactive samples must be confirmed using a neutralization test ([employer] HBsAg Confirmatory Test) Non-Reactive: HBsAg not detected; does not exclude the possibility of exposure to HBV Performed By: #### L 509.4006, L3890.6301, L100.0100, BTS, L3890.6102, L509.8002, L3890.6006, L506.0400, L501.9520 #### [facility] [address] [place], [address] L509.4006on 10-30-2024 Rubella IgG REAC Normal Nonreactive [facility] Comment on above: Result Comment: Anti body Result: Interpretation Non-Reactive: Non-Immune Reactive: Immune The following results were obtained with the [employer] Rubella IgG assay. Results from assays of other manufacturers cannot be used interchangeably. Performed By: #### L 509.4006, L3890.6301, L100.0100, BTS, L3890.6102, L509.8002, L3890.6006, L506.0400, L501.9520 #### [facility] [address] [place], [place], [address] Laboratory - Chemistry and C hemistry - challengeOrdered By: Kaila Henderson on 10-30-2024 Glucose Ql (U) Negative [facility] - Microbiology an d Antimicrobial susceptibilityOrdered By: Kaila Henderson on 10-30-2024 HBV surface Ag Ql (S) Non-Reactive Nonreactive [facility] Comment on above: Reactive: Presumptiv e evidence of HBV. Repeatedly reactive samples must be confirmed using a neutralization test ([employer] HBsAg Confirmatory Test)Non-Reactive: HBsAg not detected; does not exclude the possibility of exposure to HBV Laboratory - UrinalysisOrder ed By: Kaila Henderson on 10-30-2024 Protein Ql (U) Negative [facility] MCV (mean corpuscular volume ) determinationOrdered By: Kaila Henderson on 10-30-2024 MCV (RBC) [Entitic vol] 92.5 fL 81-99 [facility] Mean corpuscular hemoglobin (MCH) determinationOrdered By: Kaila Henderson on 10-30-2024 MCH (RBC) [Entitic mass] 30.3 pg 27.0-32.0 [facility] Mean corpuscular hemoglobin concentration (MCHC) determinationOrdered By: Kaila Henderson on 10-30-2024 MCHC (RBC) [Mass/Vol] 32.8 g/dL 32-[address] [facility] Mean platelet volume determi nationOrdered By: Kaila Hsuivanna on 10-30-2024 Platelet mean volume (Bld) [Entitic vol] 10.5 fL 6.2-12.0 [facility] Monocyte percentageOrdered B y: Kaila Henderson on 10-30-2024 Monocytes/100 WBC (Bld) 7.9 % 0-10 [facility] Neutrophil percentageOrdered By: Kaila Henderson on 10-30-2024 Neutrophils/100 WBC (Bld) 66.1 % 47-70 [facility] No Panel InformationOrdered By: Kaila Henderson on 10-30-2024 HIV (1&2) Antibody Non-Reactive Nonreactive [facility] Comment on above: Non-ReactiveReactive Repeatedly reactive samples must be confirmed according to CDC recommended confirmatory algorithms. The subresults for either HIVAG or AHIV can be used as an aid in the selection of the confirmation algorithm for reactive samples.Send out specimens with Reactive results to [facility] for confirmation.Order the HIV antibody detection and differentiation: lc#[id number] Nucleated red blood cell per centageOrdered By: Kaila Henderson on 10-30-2024 Nucleated RBC/100 WBC (Bld) [Ratio] 0 % 0-5 [facility] Suspect Artist Office Visit Reporton 10-30-2024 Suspect Artist Office Visit Report [facility] [address], [address] [place] [address] OFFICE VISIT Date of Service: 10/30/24 MR#: [id number] Acct: [id number] Name: LATONYA RODARTE Rep #: [id number] : 1985 Provider: Dr. Kaila cali MD Age/Sex: 39/F Location: [facility] Status: Signed Intake Vital Signs 10/24/24 11:42 10/30/24 09:05 10/30/24 09:10 Height 5 ft 4 in 5 ft 4 in 5 ft 4 in Weight: 165 lb 4 oz BMI 28.3 BP 116/70 Intake Visit Reasons: 10W 1D [employer] CK per [employer] Shuttle Bus Driver Required: No Is patient in pain?: No Allergies ampicillin Allergy (Verified 10/30/24 09:05) Hives Medications ???Medication ???Instructions ???Recorded ???Confirmed ???Type Lactobacillus 25 billion cap PO 10/14/24 10/30/24 History cell-Bifido 25 billion lzdx-NTH-mrrcw capsule aspirin 81 mg tablet,delayed 81 mg [...] 3-4 times per week duration: 15-30 minutes/day sotero/confucianist: None seatbelt use: always do you feel safe at home: Yes 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 ? (more content not included)... Normal [facility] Platelet countOrdered By: Mari Henderson on 10-30-2024 Platelets (Bld) [#/Vol] 320 10*3/uL 150-450 [facility] RBC Auto (Bld) [#/Vol]Ordere d By: Kaila Henderson on 10-30-2024 RBC (Bld) [#/Vol] 4.52 10*6/uL 4.2-5.4 [facility] Syphilis Antibodieson 2024 Syphilis Abs Non-Reactive Normal Nonreactive [facility] Comment on above: Performed By: #### L 509.4006, L3890.6301, L100.0100, BTS, L3890.6102, L509.8002, L3890.6006, L506.0400, L501.9520 #### [facility] [address] [place], [place], [address] T4 Free Directon 10-30-2024 T4 FREE DIRECT 1.50 ng/dL High 0.76-1.46 [facility] Comment on above: Performed By: #### L 509.4006, L3890.6301, L100.0100, BTS, L3890.6102, L509.8002, L3890.6006, L506.0400, L501.9520 #### [facility] [address] [place], [place], [address] T4 freeOrdered By: Kaila pickens on 10-30-2024 Free T4 [Mass/Vol] 1.50 ng/dL High 0.76-1.46 [facility] TSH DL <= 0.005 mIU/L QnOrde red By: Kaila Henderson on 10-30-2024 TSH Qn 1.320 uIU/mL 0.300-4.200 [facility] Thyroid Stim Hormone (TSH)on 10-30-2024 TSH 1.320 uIU/mL Normal 0.300-4.200 [facility] Comment on above: Performed By: #### L 509.4006, L3890.6301, L100.0100, BTS, L3890.6102, L509.8002, L3890.6006, L506.0400, L501.9520 #### [facility] [address] [place], [address] Type AND Screenon 10-30-2024 Ab SCREEN GEL Negative Normal [facility] Comment on above: Order Comment: PN Performed By: #### L 509.4006, L3890.6301, L100.0100, BTS, L3890.6102, L509.8002, L3890.6006, L506.0400, L501.9520 #### [facility] [address] [place], [address] White blood cell (WBC) count Ordered By: Kaila Henderson on 10-30-2024 WBC (Bld) [#/Vol] 8.5 10*3/uL 4.4-11.0 [facility] Chlamydia/GC MONICA aptimaon CHLAMY,NUC ACID Negative Normal Negative [facility] Comment on above: Performed By: #### L 509.4006, L3890.6301, L100.0100, BTS, L3890.6102, L509.8002, L3890.6006, L506.0400, L501.9520 #### [facility] [address] [place], [place], [address] GC BY NUC ACID Negative Normal Negative [facility] Comment on above: Result Comment: Perf ormed at: =G - [facility] [address] [id number] Petrophysicist: Alona Tanner MD, Phone: [phone] Performed By: #### L 509.4006, L3890.6301, L100.0100, BTS, L3890.6102, L509.8002, L3890.6006, L506.0400, L501.9520 #### [facility] [address] [facility] [place], [address] Urine Cultureon 10-27-2024 UR Copy of report sent to Infection Control Printer MS#[id number] 10/26/24 0756 NELSY. [facility] 1524 Nolvia Leon. REPORT READ BACK BY . Urine Culture Urine Culture ESBL Escherichia coli [place] Count >100,000 MARKER ESBL producing OrganismA MARKER [...] TMP SMX Islt MARIAMA <=20 S Normal [facility] Comment on above: Performed By: #### L 509.4006, L3890.6301, L100.0100, BTS, L3890.6102, L509.8002, L3890.6006, L506.0400, L501.9520 #### [facility] [address] [facility] [address] [facility] [place], [place], [address] Chlamydia trachomatis rRNA d etection by probe and target amplification methodOrdered By: Kaila Henderson on 10-24-2024 C. trachomatis rRNA MONICA+probe Ql (Unsp spec) Negative Negative [facility] Neisseria gonorrhoeae nuclei c acid detection by amplified probe techniqueOrdered By: Kaila Henderson on 10-24-2024 N. gonorrhoeae DNA MONICA+probe Ql (Unsp spec) Negative Negative [facility] Comment on above: Performed at: =[place] [address] [place] [id number] Director: Alona Tanner MD, Phone: [phone] Suspect Artist Office Visit Reporton 10-24-2024 Suspect Artist Office Visit Report [facility]'s [address], [address] [place] [address] OFFICE VISIT Date of Service: 10/24/24 MR#: [id number] Acct: [id number] Name: LATONYA RODARTE Rep #: [id number] : 1985 Provider: Dr. Iman Silverman DO Age/Sex: 39/F [place] [facility] [place]: Signed Intake Vital Signs 01/26/21 17:03 10/14/24 10:25 10/24/24 11:39 10/24/24 11:42 Height 5 ft 4 in 5 ft 4 in 5 ft 4 in 5 ft 4 in Weight: 166 lb 4 oz BMI 28.5 BP 111/65 Intake Visit Reasons: NOB IVF transfer 09/09 Shuttle Bus Driver Required: No Is patient in pain?: No Allergies ampicillin Allergy (Verified 10/24/24 11:39) Hives Medications ???Medication ???Instructions ???Recorded ???Confirmed ???Type Lactobacillus 25 billion cap PO 10/14/24 10/24/24 History cell-Bifido 25 billion nbgv-POX-ccxbn capsule aspirin 81 mg tablet,delayed 81 mg [...] Period: 08/21/24 Zika: Zika virus screening: Negative [facility] Medical History Lipoma of back Rectal atresia [...] 3-4 times per week duration: 15-30 minutes/day sotero/confucianist: None seatbelt use: always do you feel safe at home: Yes 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 Normal [facility] Urine cultureOrdered By: Bk Henderson on 10-24-2024 Bacteria identified Cx Nom (U) ESBL Escherichia coli Abnormal [facility] - Chemistry and C hemistry - challengeOrdered By: Kalia Henderson on 10-14-2024 HCG ( test) Ql (U) Positive [facility] Office Visit Reporton 2024 Office Visit Report [facility] [address] [place] [address] OFFICE VISIT Date of Service: 10/14/24 MR#: [id number] Acct: [id number] Patient: LATONYA RODARTE Rep #: [id number] : 1985 Provider: Dr. Kaila cali MD Age/Sex: 39/F [place] [facility] Status: Signed Intake Vital Signs 01/26/21 17:03 10/14/24 10:25 Height 5 ft 4 in 5 ft 4 in Weight: 163 lb 8 oz BMI 28.0 BP 106/71 Blood Pressure Location Lt brachial Position Sitting Intake Visit Reasons: Confirmation for / Vitals Chief Complaint: fever, chills, nausea, abd pain Shuttle Bus Driver Required: No Is patient in pain?: No Allergies ampicillin Allergy (Verified 10/14/24 10:26) Hives Medications ???Medication ???Instructions ???Recorded ???Confirmed ???Type Lactobacillus 25 billion cap PO 10/14/24 10/14/24 History cell-Bifido 25 billion jlzy-IHX-gzuah capsule aspirin 81 mg tablet,delayed 81 mg [...] : Status: Acute Comment: , WES 05/27/25, 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 IR CECOSTOMY EXCHANGE WITH F LUOROon 10-09-2024 IR CECOSTOMY EXCHANGE WITH FLUORO IR tube change request Current tube: Mini ALEX Current tube size: 14 fr 6.5 cm Plan for IR tube change (what tube/size): same as above Please use fluoro to measure tract of henson to ensure appropriate size of tube is ordered. For all OUTPATIENT orders please call [phone] in addition to placing order. The on-call [...] exchange. The indwelling tube is a 14 Citizen Of [place], 6 cm mini Alex button. Interpreted by: Doroteo Rodney MD Signed by: Doroteo Rodney MD on 10/09/2024 12:12 PM Normal [facility] RF Guidance for placement of tube in Gastrointestinal tracton 10-09-2024 Impression: Cecostomy tube exchange. The indwelling tube is a 14 Citizen [place], 6 cm mini Alex button. [facility] Doroteo Rodney MD - 10/09/2024 History: Constipation. 7 weeks . Procedure note: A timeout was performed per protocol. The patient's cecostomy tube was exchanged over a wire. The balloon was inflated and the line flushed. IMPRESSION Impression: Cecostomy tube exchange. The indwelling tube is a 14 Citizen Of [place], 6 cm mini Alex button. [facility] Rad[facility] Study observation (narrative) [facility] RF Guidance for placement of tube in Gastrointestinal tractOrdered By: Doroteo Rodney on 10-09-2024 [facility] Work Phone: Kidneyon 10-09-2024 1. 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 2. Normal left kidney 3. No hydroureteronephrosis 4. Post void bladder residual volume. [facility] Kiki Singh MD - 10/09/2024 PROCEDURE: [...] hydroureteronephrosis 4. Post void bladder residual volume. [facility] Study observation (narrative) [facility] US KidneyOrdered By: Kkii miranda on 10-09-2024 [facility] Work Phone: IR CECOSTOMY EXCHANGE WITH F LUOROon 04-10-2024 IR CECOSTOMY EXCHANGE WITH FLUORO IR tube change request Current tube:mini ALEX Current tube size: 14 FR 6.5 cm Plan for IR tube change (what tube/size): Measure the tract using contrast is visualize the entire tract For all OUTPATIENT orders please call [phone] in addition to placing order. The on-call [...] None. LOCAL ANESTHESIA: 2ml of lidocaine jelly. 2 YEAR OLDS PRESCHOOL TEACHER: Anant Jo MD ASSISTANTS: None. SPECIMENS: None. [...] was measured at 6.5 cm. A new 12-Citizen Of [place], 6 cm in length mini Alex button [...] tube exchange. The indwelling tube is a 12-Citizen Of [place], 6 cm stomal length mini Alex button. Interpreted by: Anant Jo MD Signed by: Anant Jo MD on 04/10/2024 2:41 PM Normal [facility] RF Guidance for placement of tube in Gastrointestinal tracton 04-10-2024 1.Cecostomy tract length measured at 6.0 cm using a stoma length measuring device. Cecostomy tract length measured at 6.5 cm using contrast injection method. 2.Cecostomy tube exchange. The indwelling tube is a 12-Citizen Of [place], 6 cm stomal length mini Alex button. [facility] STUDY: IR CECOSTOMY EXCHANGE WITH FLUORO 04/10/2024 2:27 PM REASON FOR EXAM: History of anorectal malformation ;Anorectal malformation PROCEDURE: Cecostomy tube exchange. PREOPERATIVE DIAGNOSIS: Constipation. POSTOPERATIVE DIAGNOSIS: Same ANESTHESIA: None. LOCAL ANESTHESIA: 2ml of lidocaine jelly. 2 YEAR OLDS PRESCHOOL TEACHER: Anant Jo MD ASSISTANTS: None. SPECIMENS: None. [...] was measured at 6.5 cm. A new 12-Citizen [place], 6 cm in length mini Alex button tube was advanced into position. The retention balloon was inflated to 4 mL contrast/water mix. Final position is satisfactory and was confirmed by injecting contrast through the tube and obtaining a spot film. [facility] Anant Eldridge MD - 04/10/2024 STUDY: IR CECOSTOMY EXCHANGE WITH FLUORO 04/10/2024 2:27 PM REASON FOR EXAM: History of anorectal malformation ;Anorectal malformation PROCEDURE: Cecostomy tube exchange. PREOPERATIVE DIAGNOSIS: Constipation. POSTOPERATIVE DIAGNOSIS: Same ANESTHESIA: None. LOCAL ANESTHESIA: 2ml of lidocaine jelly. 2 YEAR OL[employer] PRESCHOOL TEACHER: Anant Jo MD ASSISTANTS: None. SPECIMENS: None. [...] was measured at 6.5 cm. A new 12-Citizen Of [place], 6 cm in length mini Alex button [...] tube exchange. The indwelling tube is a 12-Citizen [place], 6 cm stomal length mini Alex button. [facility] Study observation (narrative) [facility] RF Guidance for placement of tube in Gastrointestinal tractOrdered By: Anant Jo on 04-10-2024 [facility] Work Phone: XR ABDOMEN - SUPINEon [...] Gregg MD on 04/10/2024 3:55 PM Normal [facility] XR Abdomen Supine and Uprigh ton 04-10-2024 Above average stool burden, stable since the prior study. Otherwise normal abdominal radiograph. [facility] RADIOLOGY REASON FOR EXAM: Ass ess Stool [...] SOFT TISSUES: Normal. CALCIFICATIONS: None. BONES: Normal. [facility] RADIOLOGY Denise Gregg MD - 04/10/2024 REASON [...] the prior study. Otherwise normal abdominal radiograph. [facility] Study observation (narrative) [facility] XR Abdomen Supine and Uprigh tOrdered By: Denise Gregg on 04-10-2024 [facility] Work Phone: Surgical pathology studyon 0 10-31-2023 Surgical pathology study Pathology report.total SEE COMMENT Surgical Pathology Case: [id number] Authorizing Provider: Von Adler MD Collected: 10/31/2023 1438 [facility]ing [facility] Received: 11/01/2023 1535 Center Pathologist: [...] is entirely submitted in one cassette. [facility] Basic Metabolic Panelon 05-2020 CKD-EPI Estimated Glomerular Filtration Rate (eGFR) is calculated using the 2020 CKD-EPI creatinine equation. This equation uses serum creatinine, sex and age for calculating the eGFR. Normal [facility] Comment on above: Performed By: #### B MP #### [facility] [address] [place] [address] 77915 Anion gap [Moles/Vol] 10 mmol/L Normal 8-15 [facility] Comment on above: Performed By: #### B MP #### [facility] [address] [place] [address] 88107 Calcium [Mass/Vol] 9.1 mg/dL Normal 8.6-10.6 [facility] Comment on above: Performed By: #### B MP #### [facility] [address] [place] [address] 57771 Chloride [Moles/Vol] 106 mmol/L Normal 98-107 [facility] Comment on above: Performed By: #### B MP #### [facility] [address] [place] [address] 06090 CO2 [Moles/Vol] 24 mmol/L Normal 22-29 [facility] Comment on above: Performed By: #### B MP #### [facility] [address] [place] [address] 84299 Creatinine [Mass/Vol] 0.9 mg/dL Normal 0.5-1.2 [facility] Comment on above: Performed By: #### B MP #### [facility] [address] [place] [address] 28102 eGFR 81 mL/min/1.73sqm Normal >=60 [facility] Comment on above: Performed By: #### B MP #### [facility] [address] [place] [address] 00290 Glucose [Mass/Vol] 80 mg/dL Normal 74-109 [facility] Comment on above: Performed By: #### B MP #### [facility] [address] [place] [address] 30270 Potassium [Moles/Vol] 3.7 mmol/L Normal 3.4-5.1 [facility] Comment on above: Performed By: #### B MP #### [facility] [address] [place] [address] 28649 Sodium [Moles/Vol] 140 mmol/L Normal 136-145 [facility] Comment on above: Performed By: #### B MP #### [facility] [address] [place] [address] 28094 Urea nitrogen [Mass/Vol] 19 mg/dL Normal 6-23 [facility] Comment on above: Performed By: #### B MP #### [facility] [address] [place] [address] 59373 CBC with Diffon 10-30-2023 BA# 0.1 x(10)3/cumm Normal 0.0-0.1 [facility] Comment on above: Performed By: #### C BCDIFF #### [facility] [address] [place] [address] 21991 Basophils/100 WBC (Bld) 1.0 % Normal 0.0-1.[address] [facility] Comment on above: Performed By: #### C BCDIFF #### [facility] [address] [place] [address] 46373 EO# 0.1 x(10)3/cumm Normal 0.0-0.4 [facility] Comment on above: Performed By: #### C BCDIFF #### [facility] [address] [place] [address] 25503 Eosinophils/100 WBC (Bld) 1.7 % Normal 0.0-6.1 [facility] Comment on above: Performed By: #### C BCDIFF #### [facility] [address] [place] [address] 69170 Erythrocyte distribution width (RBC) [Ratio] 13.7 % Normal 11.1-15.3 [facility] Comment on above: Performed By: #### C BCDIFF #### [facility] [address] [place] [address] 95409 Hematocrit (Bld) [Volume fraction] 39.4 % Normal 34.6-45.0 [facility] Comment on above: Performed By: #### C BCDIFF #### [facility] [address] [place] [address] 30003 Hemoglobin (Bld) [Mass/Vol] 13.0 g/dL Normal 11.5-15.5 [facility] Comment on above: Performed By: #### C BCDISAYRA #### [facility] [address] [place] [address] 49792 LY# 2.3 x(10)3/cumm Normal 0.8-2.9 [facility] Comment on above: Performed By: #### C BCDIFF #### [facility] [address] [place] [address] 72934 Lymphocytes/100 WBC (Bld) 32.9 % Normal 12.2-42.6 [facility] Comment on above: Performed By: #### C BCDISAYRA #### [facility] [address] [place], [place] [address] MCH (RBC) [Entitic mass] 30.4 pg Normal 27.2-33.6 [facility] Comment on above: Performed By: #### C BCDISAYRA #### [facility] [address] [place], [place] [address] MCHC (RBC) [Mass/Vol] 33.0 g/dL Normal 32.9-35.3 [facility] Comment on above: Performed By: #### C BCDISAYRA #### [facility] [address] [place] [address] 15485 MCV (RBC) [Entitic vol] 92.0 fL Normal 81.3-96.7 [facility] Comment on above: Performed By: #### C BCDISAYRA #### [facility] [address] [place], [place] [phone] MO# 0.5 x(10)3/cumm Normal 0.2-0.8 [facility] Comment on above: Performed By: #### C BCDISAYRA #### [facility] [address] [place], [place] [address] Monocytes/100 WBC (Bld) 7.9 % Normal 3.3-11.6 [facility] Comment on above: Performed By: #### C BCDISAYRA #### [facility] [address] [place] [address] 52028 NE# 3.9 x(10)3/cumm Normal 1.3-7.4 [facility] Comment on above: Performed By: #### C BCDIFF #### [facility] [address] [place] [address] 40918 Neutrophils/100 WBC (Bld) 56.5 % Normal 44.9-78.8 [facility] Comment on above: Performed By: #### C BCDIFF #### [facility] [address] [place] [address] 43496 Platelet mean volume (Bld) [Entitic vol] 8.9 fL Normal 6.4-10.0 [facility] Comment on above: Performed By: #### C BCDIFF #### [facility] [address] [place] [address] 68703 PLT 269 x(10)3/cumm Normal 138-367 [facility] Comment on above: Performed By: #### C BCDIFF #### [facility] [address] [place] [address] 49254 Plt Morph Normal [facility] Comment on above: Performed By: #### C BCDIFF #### [facility] [address] [place] [address] 34257 RBC 4.28 X(10)6/cumm Normal 3.90-5.10 [facility] Comment on above: Performed By: #### C BCDIFF #### [facility] [address] [place] [address] 79739 RBC Morph cont Normal [facility] Comment on above: Performed By: #### C BCDIFF #### [facility] [address] [place] [address] 60210 RBC morphology finding Nom (Bld) Normal [facility] Comment on above: Performed By: #### C BCDIFF #### [facility] [address] [place] [address] 85417 WBC 6.9 x(10)3/cumm Normal 3.6-10.3 [facility] Comment on above: Performed By: #### C BCDIFF #### [address] [place], [place] [address] WBC Morph [facility] Comment on above: Performed By: #### C ANTONIO #### [facility] [address] [place] [address] 43606 [place] 02-07-2023 DEREKN Telephone (REIBD) LATONYA RODARTE ([id number]) 1985 F Date Time Provider Department 02/07/23 MACKENZIE DURAN During your visit today, we recorded the following information about you: Allergies As of Date: 02/07/2023 Noted Allergy Reaction AMPICILLIN 10/28/2019 14 - Other: See Comments Comments: childhood allergy- hives Date Reviewed: 12/14/2022 Reviewed by: Stuart Guerrero APRN.CARPENTER SUPERVISOR - Fully Assessed Reason for Visit: Opened [...] as directed. For low dose HCG Pregnyl 97368 units with 5ml syringe and needle to mix and 15 insulin syringes. - [employer] Syrng-Ndl 1/2 mL 30 x 1/2 syrg 1 Container as directed. Pregnyl trigger 08735 Units #1 with syringes and needles. - [...] 07/12/2020 Kidney stone [N20.0] Encounter Status:Closed by ROGER MACKENZIE on 02/07/23 [facility] CNNURSEon 01-22-2023 CNNURSE Nurse Visit (REIBD) LATONYA RODARTE ([id number]) 1985 F Date Time Provider Department 01/22/23 7:15 AM NURSE VERENICE [facility] REIBCindy During your visit today, we recorded [...] did not stay to meet with nursing. rFeda Gerard RN Called patient with recommendation to [...] 2023 1:42 PM Referring Provider: STUART GUERRERO [[id number]] Allergies As of Date: 01/22/2023 Noted Allergy Reaction AMPICILLIN 10/28/2019 14 - Other: See Comments Comments: childhood allergy- hives Date Reviewed: 12/14/2022 Reviewed by: Stuart Guerrero APRN.CARPENTER SUPERVISOR - Fully Assessed Reason for Visit: Infertility [285] Visit Diagnosis:Encounter for fertility testing [Z31.41] Order(s):FOLLICULAR US [facility] [2224826] Order #: [id number]: 6 PROGESTERONE BLD [SQPROG] Order #: [id number] FUTURE PROGESTERONE BLD [SQPROG] Order #: [id number]. #:[id number] Prescriptions as of 01/22/2023 - letrozole (FEMARA) [...] as directed. For low dose HCG Pregnyl 09201 units with 5ml syringe and needle to mix and 15 insulin syringes. - [employer] Syrng-Ndl 1/2 mL 30 x 1/2 syrg 1 Container as directed. Pregnyl trigger 95957 Units #1 with syringes and needles. - [...] Status:Closed by ANAHY VELARDE on 01/22/23 Normal [facility] Estradiol SerPl-ncon 01-22 E2 [Mass/Vol] pg/mL Normal [facility] Comment on above: Order Comment: Speci men Type: BLOOD SPECIMENOrdering Facility: [facility] Address: [address] [place] [phone] Result Comment: This test is not suitable [...] 3243 pg/mL Second trimester : 1561 to 32183 pg/mL Third trimester : 8285 to >14215 pg/mL Post-menopausal Estradiol reference range: < 41 pg/mL Reference: 1. Estradiol - E2 (Estradiol III) [package insert V 3.0 British]. [facility], [place], [place], November 2015. Performed By: #### 2 243-4 ####[facility] [id number] [place] [id number] [place] PROGESTERONE BLDon 3 Progesterone [Mass/Vol] 0.8 ng/mL See comment ng/mL [facility] Progest SerPl-mCncon 023 Progesterone [Mass/Vol] 0.8 ng/mL Normal See comment [facility] Comment on above: Order Comment: Speci men Type: BLOOD SPECIMENOrdering Facility: [facility] Address: [place] [address] Result Comment: Mens trual Cycle Progesterone Reference Ranges: Follicular: <1.0 ng/mL Ovulation: <12.1 ng/mL Luteal: 1.8 to 23.9 ng/mL. Progesterone Reference Ranges vary by gestational period: First Trimester: 11.0 to 44.3 ng/mL Second Trimester: >25.3 ng/mL Third Trimester: >58.6 ng/mL Post menopausal Progesterone: <0.5 ng/mL Reference: 1. Progesterone (Progesterone III) [package insert V 1.0 British]. [facility], [place], [place]. March 2015. Performed By: #### 2 839-9 ####[facility] LABCLIA [id number] [place] [id number] [facility] [place] CNNURSEon 01-15-2023 CNNURSE Nurse Visit (REIBD) LATONYA RODARTE ([id number]) 1985 F Date Time Provider Department 01/15/23 7:30 AM NURSE VERENICE [facility] REIBD During your visit today, we [...] Freda Gerard RN Referring Provider: STUART GUERRERO [[id number]] Allergies As of Date: 01/15/2023 Noted Allergy Reaction AMPICILLIN 10/28/2019 14 - Other: See Comments Comments: childhood allergy- hives Date Reviewed: 12/14/2022 Reviewed by: Stuart Guerrero APRN.CARPENTER SUPERVISOR - Fully Assessed Reason for Visit: Infertility [285] Visit Diagnosis:Encounter for fertility testing [Z31.41] Order(s):[facility] [[id number]] Order #: [id number]: 6 Prescriptions as of 01/15/2023 - letrozole [...] as directed. For low dose HCG Pregnyl 64055 units with 5ml syringe and needle to mix and 15 insulin syringes. - [employer] Syrng-Ndl 1/2 mL 30 x 1/2 syrg 1 Container as directed. Pregnyl trigger 45748 Units #1 with syringes and needles. - [...] Status:Closed by ANAHY VELARDE on 01/15/23 Normal [facility] Estradiol SerPl-mCncon 01-15 E2 [Mass/Vol] pg/mL Normal [facility] Comment on above: Order Comment: Speci men Type: BLOOD SPECIMENOrdering Facility: [facility] Address: [place] [address] Result Comment: This test is not suitable [...] 3243 pg/mL Second trimester : 1561 to 38886 pg/mL Third trimester : 8285 to >79400 pg/mL Post-menopausal Estradiol reference range: < 41 pg/mL Reference: 1. Estradiol - E2 (Estradiol III) [package insert V 3.0 British]. [facility], [place], [place], November 2015. Performed By: #### 2 243-4 ####[facility] LABCLIA [id number] [place] [id number] [facility] [place] 01-12-2023 DEREKN Telephone (REIBD) LATONYA RODARTE ([id number]) 1985 F Date Time Provider Department 01/12/23 SOREN SEBASTIAN During your visit today, we recorded the following information about you: Ruddy Diasra 01/12/2023 3:21 PM Signed Pt started her [...] Date Reviewed: 12/14/2022 Reviewed by: Stuart Guerrero APRN.CARPENTER SUPERVISOR - Fully Assessed Reason for Visit: cd [...] as directed. For low dose HCG Pregnyl 14099 units with 5ml syringe and needle to mix and 15 insulin syringes. - [employer] Syrng-Ndl 1/2 mL 30 x 1/2 syrg 1 Container as directed. Pregnyl trigger 51248 Units #1 with syringes and needles. - [...] GERARD RN on 01/12/23 [facility] 12-14-2022 MARQUITA Telephone (REIBD) LATONYA RODARTE ([id number]) 1985 F Date Time Provider Department 12/14/22 SOREN SEBASTIAN During your visit today, we recorded the following information about you: Ramila Dias 12/14/2022 1:00 PM Signed Pt would like her prescription sent to the hospital [facility] ,speaking with Nurse Freda Gerard RN 12/14/2022 2:45 PM Signed Called patient to advise her we have sent letrozole to the pharmacy she requested. Patient states understanding. Freda Gerard RN December 14, 2022 2:45 PM Allergies As of Date: 12/14/2022 Noted Allergy Reaction AMPICILLIN 10/28/2019 14 - Other: See Comments Comments: childhood allergy- hives Date Reviewed: 12/14/2022 Reviewed by: Stuart Guerrero APRN.CARPENTER SUPERVISOR - Fully Assessed Reason for Visit: switching [...] used to mix low dose HCG - [employer] Syrng-Ndl 1/2 mL 30 x 1/2 syrg 1 Container as directed. For low dose HCG Pregnyl 63335 units with 5ml syringe and needle to mix and 15 insulin syringes. - [employer] Syrng-Ndl 1/2 mL 30 x 1/2 syrg 1 Container as directed. Pregnyl trigger 38636 Units #1 with syringes and needles. - [...] Encounter Status:Closed by STUART GUERRERO on 12/14/22 [facility] [place] 12-12-2022 [facility] Telephone (REIBD) CAYDENLATONYA ([id number]) 1985 F Date Time Provider Department 12/12/22 NURSE VERENICE [facility] COHN During your visit today, we [...] Date Reviewed: 10/17/2022 Reviewed by: Stuart Guerrero APRN.CARPENTER SUPERVISOR - Fully Assessed Reason for Visit: Patient Question [1737] Prescriptions as of 12/14/2022 - letrozole (FEMARA) [...] as directed. For low dose HCG Pregnyl 67213 units with 5ml syringe and needle to mix and 15 insulin syringes. - [employer] Syrng-Ndl 1/2 mL 30 x 1/2 syrg 1 Container as directed. Pregnyl trigger 74487 Units #1 with syringes and needles. - [...] Status:Closed by FREDA GERARD RN on 12/12/22 [facility] MARQUITA Telephone (REIBD) LATONYA RODARTE ([id number]) 1985 F Date Time Provider Department 12/12/22 SOREN SEBASTIAN REIBD During your visit today, [...] Date Reviewed: 10/17/2022 Reviewed by: Stuart Guerrero APRN.CARPENTER SUPERVISOR - Fully Assessed Reason for Visit: Patient [...] as directed. For low dose HCG Pregnyl 29592 units with 5ml syringe and needle to mix and 15 insulin syringes. - [employer] Syrng-Ndl 1/2 mL 30 x 1/2 syrg 1 Container as directed. Pregnyl trigger 80734 Units #1 with syringes and needles. - [...] Status:Closed by FREDA GERARD RN on 12/12/22 [facility] [facility] LATONYA RODARTE ([id number]) 1985 F Date Time Provider Department 11/23/22 7:30 AM NURSE VERENICE [facility] REIBD During your visit today, we [...] 2022 3:11 PM Referring Provider: STUART GUERRERO [[id number]] Allergies As of Date: 11/23/2022 Noted Allergy Reaction AMPICILLIN 10/28/2019 14 - Other: See Comments Comments: childhood allergy- hives Date Reviewed: 10/17/2022 Reviewed by: Stuart Guerrero APRN.CARPENTER SUPERVISOR - Fully Assessed Reason for Visit: Infertility [285] Visit Diagnosis:Encounter for fertility testing [Z31.41] Order(s):FOLLICULAR US [facility] [[id number]] Order #: [id number]: 6 PROGESTERONE BLD [SQPROG] Order #: [id number] FUTURE ESTRADIOL-17B BLD [SQE2] Order #: [id number]. #:[id number] PROGESTERONE BLD [SQPROG] Order #: [id number]. #:[id number] Prescriptions as of 01/09/2023 - letrozole (FEMARA) [...] as directed. For low dose HCG Pregnyl 83635 units with 5ml syringe and needle to mix and 15 insulin syringes. - [employer] Syrng-Ndl 1/2 mL 30 x 1/2 syrg 1 Container as directed. Pregnyl trigger 63743 Units #1 with syringes and needles. - [...] Status:Closed by WIL LUKE on 11/25/22 Normal [facility] ESTRADIOL-17B BLDon 11-24-19 23 E2 [Mass/Vol] 42 pg/mL [facility] Estradiol SerPl-mCncon 11-23 E2 [Mass/Vol] 42 pg/mL Normal [facility] Comment on above: Order Comment: Speci men Type: BLOOD SPECIMENOrdering Facility: [facility] Address: [address] [place], [place] [address] Result Comment: This test is not suitable [...] 3243 pg/mL Second trimester : 1561 to 08986 pg/mL Third trimester : 8285 to >62723 pg/mL Post-menopausal Estradiol reference range: < 41 pg/mL Reference: 1. Estradiol - E2 (Estradiol III) [package insert V 3.0 British]. [facility], [place], [place], November 2015. Performed By: #### 2 243-4, 2839-9 ####[facility] LABCLIA [id number] [place] [id number] [place] PROGESTERONE BLDon 3 Progesterone [Mass/Vol] 3.1 ng/mL High See comment ng/mL [facility] Progest SerPl-mCncon 023 Progesterone [Mass/Vol] 3.1 ng/mL High See comment [facility] Comment on above: Order Comment: Speci men Type: BLOOD SPECIMENOrdering Facility: [facility] Address: [address] [place] [phone] Result Comment: Mens trual Cycle Progesterone Reference Ranges: Follicular: <1.0 ng/mL Ovulation: <12.1 ng/mL Luteal: 1.8 to 23.9 ng/mL. Progesterone Reference Ranges vary by gestational period: First Trimester: 11.0 to 44.3 ng/mL Second Trimester: >25.3 ng/mL Third Trimester: >58.6 ng/mL Post menopausal Progesterone: <0.5 ng/mL Reference: 1. Progesterone (Progesterone III) [package insert V 1.0 British]. [facility], [place], [place]. March 2015. Performed By: #### 2 243-4, 2839-9 ####[facility] LABCLIA [id number] [place] [address] [facility] CNNURSEon 11-22-2022 CNNURSE Nurse Visit (REIBD) LATONYA RODARTE ([id number]) 1985 F Date Time Provider Department 11/22/22 7:45 AM NURSE [facility] REIBD During your visit today, we recorded [...] 2022 2:01 PM Referring Provider: STUART GUERRERO [[id number]] Allergies As of Date: 11/22/2022 Noted Allergy Reaction AMPICILLIN 10/28/2019 14 - Other: See Comments Comments: childhood allergy- hives Date Reviewed: 10/17/2022 Reviewed by: Stuart Guerrero APRN.CARPENTER SUPERVISOR - Fully Assessed Primary Visit Diagnosis:Female infertility [N97.9] Other Visit Diagnosis:Encounter for fertility testing [Z31.41] Order(s):FOLLICULAR US [facility] [[id number]] Order #: [id number]. #:[id number] WPOINTQty: 6 ESTRADIOL-17B BLD [SQE2] Order #: [id number]. #:[id number] Prescriptions as of 11/22/2022 - letrozole (FEMARA) [...] as directed. For low dose HCG Pregnyl 51126 units with 5ml syringe and needle to mix and 15 insulin syringes. - [employer] Syrng-Ndl 1/2 mL 30 x 1/2 syrg 1 Container as directed. Pregnyl trigger 86666 Units #1 with syringes and needles. - [...] Status:Closed by WIL LUKE on 11/22/22 Normal [facility] ESTRADIOL-17B BLDon 11-23-19 E2 [Mass/Vol] 31 pg/mL [facility] Estradiol SerPl-mCncon 11-22 E2 [Mass/Vol] 31 pg/mL Normal [facility] Comment on above: Order Comment: Speci men Type: BLOOD SPECIMENOrdering Facility: [facility] Address: [address] [place] [phone] Result Comment: This test is not suitable [...] 3243 pg/mL Second trimester : 1561 to 02946 pg/mL Third trimester : 8285 to >22840 pg/mL Post-menopausal Estradiol reference range: < 41 pg/mL Reference: 1. Estradiol - E2 (Estradiol III) [package insert V 3.0 British]. [facility], [place], [place], November 2015. Performed By: #### 2 243-4 ####[facility] LABCLIA [id number] [address] [place] 11-23-[address] [facility] [place] 11-21-2022 DEREKN Telephone (REIBD) LATONYA RODARTE ([id number]) 1985 F Date Time Provider Department 11/21/22 SOREN SEBASTIAN During your visit today, we recorded the following information about you: Felicia Almaguer 11/21/2022 11:02 AM Signed Patient called [...] Date Reviewed: 10/17/2022 Reviewed by: Stuart Guerrero APRN.CARPENTER SUPERVISOR - Fully Assessed Reason for Visit: Freda [...] as directed. For low dose HCG Pregnyl 82539 units with 5ml syringe and needle to mix and 15 insulin syringes. - [employer] Syrng-Ndl 1/2 mL 30 x 1/2 syrg 1 Container as directed. Pregnyl trigger 81993 Units #1 with syringes and needles. - [...] by FREDA GERARD RN on 11/21/22 Normal [facility] ESTRADIOL-17B [facility] 11-16-19 E2 [Mass/Vol] 94 pg/mL [facility] PROGESTERONE [facility] Progesterone [Mass/Vol] 0.9 ng/mL See comment ng/mL [facility] ESTRADIOL-17B [facility] 09-08-19 E2 [Mass/Vol] 44 pg/mL [facility] FOLLICULAR US Ion 09-08-[address] [facility] ESTRADIOL-17B [facility] 09-05-19 E2 [Mass/Vol] 49 pg/mL [facility] FOLLICULAR US [facility] 09-05-[address] [facility] FOLLICULAR US [facility] 08-30-[address] [facility] FOLLICULAR US [facility] 08-11-[address] [facility] Laboratory - Chemistry and C hemistry - challengeon 08-10-2022 HCG.beta subunit Qn 138.1 m[IU]/mL High <5.0 mIU/mL [facility] ESTRADIOL-17B [facility] 08-09-19 E2 [Mass/Vol] 294 pg/mL [facility] FOLLICULAR US Ion 08-09-[address] [facility] Laboratory - Chemistry and C hemistry - challengeon 08-09-2022 Progesterone [Mass/Vol] 0.5 ng/mL See comment ng/mL [facility] Lutropin Qn 13.7 m[IU]/mL See comment mIU/mL [facility] ESTRADIOL-17B BLDon 08-08-19 E2 [Mass/Vol] 290 pg/mL [facility] FOLLICULAR US WHIon 08-08-[address] [facility] LUTEINIZING HORMONEon 2022 Lutropin Qn 13.4 m[IU]/mL See comment mIU/mL [facility] PROGESTERONE BLDon 3 Progesterone [Mass/Vol] 0.5 ng/mL See comment ng/mL [facility] ESTRADIOL-17B Don 08-07-19 E2 [Mass/Vol] 218 pg/mL [facility] FOLLICULAR US WHIon 08-07-[address] [facility] Laboratory - Chemistry and C hemistry - challengeon 08-07-2022 Progesterone [Mass/Vol] 0.5 ng/mL See comment ng/mL [facility] Lutropin Qn 13.4 m[IU]/mL See comment mIU/mL [facility] FOLLICULAR US WHIon 08-03-[address] [facility] Laboratory - Chemistry and C hemistry - challengeon 08-03-2022 Progesterone [Mass/Vol] 0.5 ng/mL See comment ng/mL [facility] Lutropin Qn 39.2 m[IU]/mL See comment mIU/mL [facility] E2 [Mass/Vol] 50 pg/mL [facility] ESTRADIOL-17B Don 08-02-19 E2 [Mass/Vol] 31 pg/mL [facility] FOLLICULAR US WHIon 08-02-[address] [facility] LUTEINIZING HORMONEon 2022 Lutropin Qn 43.2 m[IU]/mL See comment mIU/mL [facility] PROGESTERONE Don 3 Progesterone [Mass/Vol] 0.7 ng/mL See comment ng/mL [facility] ESTRADIOL-17B Don 07-25-19 E2 [Mass/Vol] [facility] FOLLICULAR US WHIon 07-25-[address] [facility] ESTRADIOL-17B Don 07-06-19 E2 [Mass/Vol] 92 pg/mL [facility] FOLLICULAR US WHIon 07-06-[address] [facility] CONSULT PROGon 06-05-2022 CONSULT PROG HNO ID: [id number] Author: Soren Sebastian MD Service: ? Author Type: Physician Type: Consult Progress Note Filed: 06/05/2022 1:14 PM Note Text: VIRTUAL VISIT PROGRESS NOTE This is a virtual visit using BringIt video visit. It required patient-provider interaction for [...] after surgery Discussed to outcome of our HULL BUILDER/VERENICE portion of the surgery: 1 tube excised. [...] after surgery Discussed to outcome of our HULL BUILDER/VERENICE portion of the surgery: 1 tube excised. [...] after surgery *Discussed to outcome of our HULL BUILDER/VERENICE portion of the surgery: 1 tube excised. [...] adhesions OPK (Ovulation Predictor Kit) Normal Ovarian [place] Not done [facility] Ultrasound Not done [place] [...] BOWEL RESECTION (more content not included)... Normal [facility] ESTRADIOL-17B BLDon 05-01-20 22 E2 [Mass/Vol] 34 pg/mL [facility] FOLLICULAR US WHIon 05-01-[address] [facility] ESTRADIOL-17B BLDon 04-24-20 22 E2 [Mass/Vol] 60 pg/mL [facility] FOLLICULAR US WHIon 04-24-[address] [facility] Hematocrit Auto (Bld) [Volum e fraction]on 04-24-2022 Hematocrit (Bld) [Volume fraction] 39.9 % 36.0 - 46.0 % [facility] ESTRADIOL-17B [facility] 02-25-20 22 E2 [Mass/Vol] 1451 pg/mL [facility] PROGESTERONE [facility] 2 Progesterone [Mass/Vol] 0.7 ng/mL See comment ng/mL [facility] ESTRADIOL-17B [facility] 02-23-20 E2 [Mass/Vol] 182 pg/mL [facility] FOLLICULAR US Ion 02-23-[address] [facility] PROGESTERONE [facility] 2 Progesterone [Mass/Vol] 0.6 ng/mL See comment ng/mL [facility] ESTRADIOL-17B [facility] 01-27-20 E2 [Mass/Vol] 107 pg/mL [facility] PROGESTERONE [facility] 2 Progesterone [Mass/Vol] 3.1 ng/mL High See comment ng/mL [facility] HCG QUAL UR B/Oon 12-21-2021 status Negative neg - pos [facility] Quality Check Yes [facility] Laboratory - Chemistry and C hemistry - challengeon 10-09-2021 HCG.beta subunit Qn 171.5 m[IU]/mL High <5.0 mIU/mL [facility] Lutropin Qn m[IU]/mL See comment mIU/mL [facility] Progesterone [Mass/Vol] 1.6 ng/mL See comment ng/mL [facility] ESTRADIOL-17B [facility] 10-07-19 22 E2 [Mass/Vol] 497 pg/mL [facility] Laboratory - Chemistry and C hemistry - challengeon 10-06-2021 Progesterone [Mass/Vol] 0.6 ng/mL See comment ng/mL [facility] ESTRADIOL-17B [facility] 10-06-19 22 E2 [Mass/Vol] 398 pg/mL [facility] PROGESTERONE [facility] 2 Progesterone [Mass/Vol] 0.5 ng/mL See comment ng/mL [facility] ESTRADIOL-17B [facility] 04-17-20 22 E2 [Mass/Vol] 192 pg/mL [facility] ESTRADIOL-17B BLDon 09-27-19 22 E2 [Mass/Vol] 73 pg/mL [facility] CT UROGRAM WO/W IVCONon 04-3 CT UROGRAM WO/W IVCON * * *Final Report* * * DATE OF EXAM: Oct 16 2019 10:07AM [facility] 0560 - CT UROGRAM WO/W IVCON [...] and absence of the coccyx presumably congenital. Business Information Consultant: NATACHA Transcribe Date/Time: Oct 16 2019 10:10A Dictated by : MULUGETA SHEPARD MD This examination was interpreted and the report reviewed and electronically signed by: MULUGETA SHEPARD MD on Oct 16 2019 10:22AM EST Normal [facility] Vital Signs Date Time Vital Sign Value Performing Clinician Facility 03-03-2025 09:140400 Body height 162.6 cm Raquel Lainez MD Work Phone: [facility] 03-03-2025 09:14-0400 Body mass index (BMI) [Ratio] 30.62 kg/m2 Raquel Lainez MD Work Phone: [facility] 03-03-2025 09:14-0400 Body weight 80.92 kg Raquel Lainez MD Work Phone: [facility] 03-03-2025 09:14-0400 Diastolic blood pressure 74 mm[Hg] Raquel Lainez MD Work Phone: [facility] 03-03-2025 09:14-0400 Systolic blood pressure 116 mm[Hg] Raquel Lainez MD Work Phone: [facility] 02-19-2025 09:08-0400 Body height 162.[address] Imani Helm DO Work Phone: [facility] 02-19-2025 09:08-0400 Body mass index (BMI) [Ratio] 30.4 kg/m2 Dr. Imani Helm DO Work Phone: [facility] 02-19-2025 09:08-0400 Body weight 80.[address] Imani Helm DO Work Phone: [facility] 02-19-2025 09:08-0400 Diastolic blood pressure 77 mm[Hg] Dr. Imani Helm DO Work Phone: [facility] 02-19-2025 09:08-0400 Systolic blood pressure 135 mm[Hg] Dr. Imani Helm DO Work Phone: [facility] 02-09-2025 13:22-0400 Body height 163.4 cm Lyn Arguelles MD Work Phone: [facility] 02-09-2025 13:22-0400 Body mass index (BMI) [Ratio] 30.21 kg/m2 Lyn Arguelles MD Work Phone: [facility] 02-09-2025 13:22-0400 Body temperature 98.2 [degF] Lyn Arguelles MD Work Phone: [facility] 02-09-2025 13:22-0400 Body weight 80.65 kg Lyn Arguelles MD Work Phone: [facility] 02-09-2025 13:22-0400 Diastolic blood pressure 79 mm[Hg] Lyn Arguelles MD Work Phone: [facility] 02-09-2025 13:22-0400 Heart rate 79 /min Lyn Arguelles MD Work Phone: [facility] 02-09-2025 13:22-0400 Respiratory rate 16 /min Lyn Arguelles MD Work Phone: [facility] 02-09-2025 13:22-0400 SaO2% (BldA) [Mass fraction] 97 % Lyn Arguelles MD Work Phone: [facility] 02-09-2025 13:22-0400 Systolic blood pressure 120 mm[Hg] Lyn Arguelles MD Work Phone: [facility] 01-20-2025 15:41-0400 Body height 162.[address] Imani Helm DO Work Phone: [facility] 01-20-2025 15:40-0400 Body mass index (BMI) [Ratio] 30.4 kg/m2 Dr. Imani Helm DO Work Phone: [facility] 01-20-2025 15:40-0400 Body weight 80.[address] Imani Helm DO Work Phone: [facility] 01-20-2025 15:40-0400 Diastolic blood pressure 68 mm[Hg] Dr. Imani Helm DO Work Phone: [facility] 01-20-2025 15:40-0400 Systolic blood pressure 113 mm[Hg] Dr. Imani Helm DO Work Phone: [facility] 12-30-2024 12:00-0400 Body weight 78.0192 kg RAQUEL LAINEZ [facility] Comment on above: Performed By: #### AFPNTP #### [facility] ([facility]) [address] [place] [id number] 12-30-2024 10:17-0400 Body height 162.6 cm Raquel Lainez MD Work Phone: [facility] 12-30-2024 10:17-0400 Body mass index (BMI) [Ratio] 29.52 kg/m2 Raquel Lainez MD Work Phone: [facility] 12-30-2024 10:17-0400 Body weight 78.02 kg Raquel Lainez MD Work Phone: [facility] 12-30-2024 10:17-0400 Diastolic blood pressure 64 mm[Hg] Raquel Lainez MD Work Phone: [facility] 12-30-2024 10:17-0400 Systolic blood pressure 114 mm[Hg] Raquel Lainez MD Work Phone: [facility] 12-30-2024 07:56-0400 Body height 162.6 cm [facility] [address] 12-30-2024 07:56-0400 Body mass index (BMI) [Ratio] 29.78 kg/m2 [facility] [address] 12-30-2024 07:56-0400 Body weight 78.7 kg [facility] [address] 12-24-2024 11:50-0400 Body height 162.[address] Imani Helm DO Work Phone: [facility] 12-24-2024 11:50-0400 Body mass index (BMI) [Ratio] 29.3 kg/m2 Dr. Imani Helm DO Work Phone: [facility] 12-24-2024 11:50-0400 Body weight 77.[address] Imani Helm DO Work Phone: [facility] 12-24-2024 11:50-0400 Diastolic blood pressure 73 mm[Hg] Dr. Imani Helm DO Work Phone: [facility] 12-24-2024 11:50-0400 Systolic blood pressure 123 mm[Hg] Dr. Imani Helm DO Work Phone: [facility] 11-26-2024 14:39-0400 Body height 162.[address] Imani Helm DO Work Phone: [facility] 11-26-2024 14:39-0400 Body mass index (BMI) [Ratio] 29.5 kg/m2 Dr. Imani Helm DO Work Phone: [facility] 11-26-2024 14:39-0400 Body weight 78.[address] Imani Helm DO Work Phone: [facility] 11-26-2024 14:39-0400 Diastolic blood pressure 73 mm[Hg] Dr. Imani Helm DO Work Phone: [facility] 11-26-2024 14:39-0400 Systolic blood pressure 109 mm[Hg] Dr. Imani Helm DO Work Phone: [facility] 11-18-2024 14:11-0400 Body height 162.[address] Imani Helm DO Work Phone: [facility] 11-18-2024 14:11-0400 Body mass index (BMI) [Ratio] 29.3 kg/m2 Dr. Imani Helm DO Work Phone: [facility] 11-18-2024 14:11-0400 Body weight 77.[address] Imani Helm DO Work Phone: [facility] 11-18-2024 14:11-0400 Diastolic blood pressure 75 mm[Hg] Dr. Imani Helm DO Work Phone: [facility] 11-18-2024 14:11-0400 Systolic blood pressure 126 mm[Hg] Dr. Imani Helm DO Work Phone: [facility] 11-13-2024 08:10-0400 Body height 162.[address] Imani Helm DO Work Phone: [facility] 11-13-2024 08:10-0400 Body mass index (BMI) [Ratio] 28.7 kg/m2 Dr. Imani Helm DO Work Phone: [facility] 11-13-2024 08:10-0400 Body weight 75.[address] Imani Helm DO Work Phone: [facility] 11-13-2024 08:10-0400 Diastolic blood pressure 64 mm[Hg] Dr. Imani Helm DO Work Phone: [facility] 11-13-2024 08:10-0400 Systolic blood pressure 109 mm[Hg] Dr. Imani Helm DO Work Phone: [facility] 11-06-2024 14:14-0400 Body height 162.[address] Imani Helm DO Work Phone: [facility] 11-06-2024 14:08-0400 Body mass index (BMI) [Ratio] 29.5 kg/m2 Dr. Imani Helm DO Work Phone: [facility] 11-06-2024 14:08-0400 Body weight 78.[address] Imani Helm DO Work Phone: [facility] 11-06-2024 14:08-0400 Diastolic blood pressure 70 mm[Hg] Dr. Imani Helm DO Work Phone: [facility] 11-06-2024 14:08-0400 Systolic blood pressure 102 mm[Hg] Dr. Imani Helm DO Work Phone: [facility] 10-30-2024 09:10-0400 Body height 162.[address] Imani Helm DO Work Phone: [facility] 10-30-2024 09:05-0400 Body mass index (BMI) [Ratio] 28.3 kg/m2 Dr. Imani Helm DO Work Phone: [facility] 10-30-2024 09:05-0400 Body weight 74.[address] Imani Helm DO Work Phone: [facility] 10-30-2024 09:05-0400 Diastolic blood pressure 70 mm[Hg] Dr. Imani Helm DO Work Phone: [facility] 10-30-2024 09:05-0400 Systolic blood pressure 116 mm[Hg] Dr. Imani Helm DO Work Phone: [facility] 10-24-2024 11:42-0400 Body height 162.[address] Imani Helm DO Work Phone: [facility] 10-24-2024 11:39-0400 Body mass index (BMI) [Ratio] 28.5 kg/m2 Dr. Imani Helm DO Work Phone: [facility] 10-24-2024 11:39-0400 Body weight 75.[address] Imani Helm DO Work Phone: [facility] 10-24-2024 11:39-0400 Diastolic blood pressure 65 mm[Hg] Dr. Imani Helm DO Work Phone: [facility] 10-24-2024 11:39-0400 Systolic blood pressure 111 mm[Hg] Dr. Imani Helm DO Work Phone: [facility] 10-14-2024 10:25-0400 Body mass index (BMI) [Ratio] 28 kg/m2 Dr. Imani Helm DO Work Phone: [facility] 10-14-2024 10:25-0400 Body weight 74.[address] Imani Helm DO Work Phone: [facility] 10-14-2024 10:25-0400 Diastolic blood pressure 71 mm[Hg] Dr. Imani Helm DO Work Phone: [facility] 10-14-2024 10:25-0400 Systolic blood pressure 106 mm[Hg] Dr. Imani Helm DO Work Phone: [facility] 10-09-2024 09:43-0400 Body height 162.6 cm Lis Wilson DO Work Phone: [facility] 10-09-2024 09:43-0400 Body mass index (BMI) [Ratio] 28.23 kg/m2 Lis Gasior DO Work Phone: [facility] 10-09-2024 09:43-0400 Body weight 74.6 kg Lis Gasior DO Work Phone: [facility] Comment on above: with shoes 10-09-2024 09:43-0400 Diastolic blood pressure 54 mm[Hg] Lis Gasior DO Work Phone: [facility] 10-09-2024 09:43-0400 Heart rate 81 /min Lis Gasior DO Work Phone: [facility] 10-09-2024 09:43-0400 Systolic blood pressure 113 mm[Hg] Lis Gasior DO Work Phone: [facility] 04-10-2024 09:40-0400 Body height 165.9 cm Andres BHAGATN Work Phone: [facility] 04-10-2024 09:40-0400 Body mass index (BMI) [Ratio] 27.4 kg/m2 Andres BHAGATN Work Phone: [facility] 04-10-2024 09:40-0400 Body weight 75.4 kg Andres Fitzgerald APN Work Phone: [facility] 04-10-2024 09:40-0400 Diastolic blood pressure 68 mm[Hg] Andres BHAGATN Work Phone: [facility] 04-10-2024 09:40-0400 Heart rate 71 /min Andres BHAGATN Work Phone: [facility] 04-10-2024 09:40-0400 Systolic blood pressure 112 mm[Hg] Andres BHAGATN Work Phone: [facility] 11-15-2022 08:19-0400 Body height 162.6 cm Nurse Beac Work Phone: [facility] 11-15-2022 08:19-0400 Body weight 74.2 kg Nurse Beac Work Phone: [facility] 11-15-2022 08:19-0400 Diastolic blood pressure 58 mm[Hg] Nurse Beac Work Phone: [facility] 11-15-2022 08:19-0400 Heart rate 77 /min Nurse Beac Work Phone: [facility] 11-15-2022 08:19-0400 SaO2% (BldA) [Mass fraction] 99 % Nurse Beac Work Phone: [facility] 11-15-2022 08:19-0400 Systolic blood pressure 115 mm[Hg] Nurse Beac Work Phone: [facility] 08-29-2022 07:15-0400 Body height 162.6 cm Nurse Beac Work Phone: [facility] 08-29-2022 07:15-0400 Body weight 74.3 kg Nurse Beac Work Phone: [facility] 08-29-2022 07:15-0400 Diastolic blood pressure 60 mm[Hg] Nurse Beac Work Phone: [facility] 08-29-2022 07:15-0400 Heart rate 78 /min Nurse Beac Work Phone: [facility] 08-29-2022 07:15-0400 SaO2% (BldA) [Mass fraction] 98 % Nurse Beac Work Phone: [facility] 08-29-2022 07:15-0400 Systolic blood pressure 105 mm[Hg] Nurse Beac Work Phone: [facility] 07-06-2022 07:21-0500 Body height 162.6 cm Nurse Beac Work Phone: [facility] 07-06-2022 07:21-0500 Body weight 73.8 kg Nurse Beac Work Phone: [facility] 07-06-2022 07:21-0500 Diastolic blood pressure 61 mm[Hg] Nurse Beac Work Phone: [facility] 07-06-2022 07:21-0500 Heart rate 102 /min Nurse Beac Work Phone: [facility] 07-06-2022 07:21-0500 SaO2% (BldA) [Mass fraction] 98 % Nurse Beac Work Phone: [facility] 07-06-2022 07:21-0500 Systolic blood pressure 97 mm[Hg] Nurse Beac Work Phone: [facility] 04-24-2022 07:41-0500 Body height 162.6 cm Nurse Beac Work Phone: [facility] 04-24-2022 07:41-0500 Body temperature 98.1 [degF] Nurse Beac Work Phone: [facility] 04-24-2022 07:41-0500 Body weight 71.22 kg Nurse Beac Work Phone: [facility] 04-24-2022 07:41-0500 Diastolic blood pressure 60 mm[Hg] Nurse Beac Work Phone: [facility] 04-24-2022 07:41-0500 Heart rate 80 /min Nurse Beac Work Phone: [facility] 04-24-2022 07:41-0500 SaO2% (BldA) [Mass fraction] 98 % Nurse Beac Work Phone: [facility] 04-24-2022 07:41-0500 Systolic blood pressure 98 mm[Hg] Nurse Beac Work Phone: [facility] 12-21-2021 11:23-0400 Body height 162.6 cm Wil Luke MD Work Phone: [facility] 12-21-2021 11:23-0400 Body weight 69.85 kg Wil Luke MD Work Phone: [facility] Encounters Encounter Date Encounter Type Care Provider Facility Start: 03-03-2025 End: 03-03-2025 Subsequent care visit Raquel Lainez MD Work Phone: [facility] [place] Comment on above: Need for Tdap vaccin ation (Primary Dx); Multigravida of advanced maternal age in second trimester; Encounter for supervision of normal first in second trimester; Cloacal malformation Start: 03-03-2025 ambulatory RAQUEL LAINEZ Facility: [facility] Start: 02-25-2025 ambulatory Imani Helm Facility:[facility] Start: 02-19-2025 End: 02-19-[address] Kaila Henderson MD -[facility] Work Phone: Start: 02-19-2025 End: 02-19-[address] Imani Helm DO Work Phone: -[facility] Start: 02-09-2025 End: 02-09-2025 ambulatory RAQUEL LAINEZ [facility] Start: 02-09-2025 End: 02-09-2025 Patient encounter procedure Lyn Arguelles MD Work Phone: [facility] Comment on above: New Patient Evaluati on Start: 02-04-2025 End: 02-04-2025 Orders Only Raquel Lainez MD Work Phone: [facility] Start: 01-22-2025 End: 01-22-2025 Follow-up encounter [facility] [place] [address] [facility] [place] Comment on above: Encounter for follow -up ultrasound of anatomy (Primary Dx); Encounter for ultrasound to assess interval growth of fetus; 22 weeks gestation of ; AMA (advanced maternal age) multigravida 35+, second trimester Start: 01-22-2025 ambulatory RAQUEL LAINEZ Facility: [facility] Start: 01-20-2025 End: 01-20-[address] Iman Jolley DO -[facility] Work Phone: Start: 01-20-2025 End: 01-20-[address] Imani Helm DO Work Phone: -[facility] Start: 12-30-2024 End: 12-30-2024 Subsequent care visit Raquel Lainez MD Work Phone: [facility] [place] Comment on above: Tethered cord (Prima ry Dx); Uterus didelphys; Recurrent UTI; Cloacal malformation Start: 12-30-2024 ambulatory SELF SELF Facility:[facility] Start: 12-30-2024 End: 12-30-2024 Follow-up encounter Birgit Wood MD Work Phone: [facility] [place] Comment on above: Encounter for anatomic survey (Primary Dx); Advanced maternal age, 1st , first trimester; Encounter for screening for risk of pre-term labor; 18 weeks gestation of ; AMA (advanced maternal age) multigravida 35+, second trimester; Encounter for ultrasound to assess interval growth of fetus; Encounter for follow-up ultrasound of anatomy Start: 12-30-2024 End: 12-30-2024 Patient encounter procedure [facility] [place] [address] [facility] Start: 12-30-2024 ambulatory RAQUEL LAINEZ Facility: [facility] Start: 12-24-2024 End: 12-24-[address] Iman Jolley DO -[place] [facility] [place] Work Phone: Start: 12-24-2024 End: 12-24-[address] Imani Helm DO Work Phone: -[facility] [place] Start: 12-03-2024 End: 12-03-[address] Imani Helm DO Work Phone: [facility] Work Phone: Start: 12-03-2024 End: 12-03-[address] [facility] Start: 12-03-2024 End: 12-03-2024 ambulatory Imani Helm Facility:[facility] Start: 11-26-2024 End: 11-26-[address] Iman Jolley DO -[facility] Work Phone: Start: 11-26-2024 End: 11-26-[address] Imani Helm DO Work Phone: [facility] Work Phone: Start: 11-21-2024 End: 11-21-2024 ambulatory IMANI HELM [facility] Start: 11-18-2024 End: 11-18-2024 Patient encounter procedure Jesse KING -[facility] Work Phone: Start: 11-18-2024 End: 11-18-[address] Imani Helm DO Work Phone: [facility] Work Phone: Start: 11-18-2024 End: 11-18-2024 ambulatory Imani Helm Facility:[facility] Start: 11-13-2024 End: 11-13-[address] Kaila Henderson MD -[facility] Work Phone: Start: 11-13-2024 End: 11-13-[address] Imani Helm DO Work Phone: [facility] Work Phone: Start: 11-06-2024 End: 11-06-[address] Kaila Henderson MD -[facility] Work Phone: Start: 11-06-2024 End: 11-06-[address] Imani Helm DO Work Phone: [facility] Work Phone: Start: 11-06-2024 End: 11-06-2024 ambulatory Kaila Henderson Facility:[facility] Start: 10-30-2024 End: 10-30-[address] Kaila Henderson MD -[place] [facility] [place] Work Phone: Start: 10-30-2024 End: 10-30-[address] Imani Helm DO Work Phone: [facility] Work Phone: Start: 10-30-2024 End: 10-30-2024 ambulatory [facility] Start: 10-24-2024 End: 10-24-[address] Imani Helm DO Work Phone: [facility] Work Phone: Start: 10-24-2024 End: 10-24-[address] Kaial Henderson MD -[facility] Work Phone: Start: 10-24-2024 End: 10-24-[address] Iman Jolley DO -[facility] Work Phone: Start: 10-24-2024 End: 10-24-2024 ambulatory Imani Malmarysol Facility:[facility] Start: 10-24-2024 End: 10-24-2024 ambulatory [facility] Start: 10-14-2024 End: 10-14-[address] Kaila Henderson MD -[facility] Work Phone: Start: 10-14-2024 End: 10-14-2024 ambulatory Kaila Henderson Facility:[facility] Start: 10-09-2024 End: 10-09-2024 Initial nursing facility care/day 35 minutes Lis Wilson DO Work Phone: [facility] Comment on above: Anorectal Malformati on Start: 10-09-2024 End: 10-09-2024 ambulatory [facility] Start: 10-09-2024 End: 10-09-2024 Subsequent hospital visit by physician [facility] Comment on above: Anorectal malformati on; Other constipation; History of antegrade continence enema procedure Anorectal malformati on Start: 04-13-2024 Orders Only Lazara Brice RN [facility] Comment on above: DME Prescription Start: 04-10-2024 End: 04-10-2024 Subsequent hospital visit by physician [facility] Comment on above: Anorectal malformati on Start: 04-10-2024 End: 04-10-2024 ambulatory CHAITANYA NOLAND [facility] Start: 04-10-2024 End: 04-10-2024 Office outpatient visit 25 minutes Andres Fitzgerald APN Work Phone: [facility] Comment on above: Anorectal Malformati on Start: 04-10-2024 End: 04-10-2024 ambulatory CHAITANYA [facility] Start: 04-10-2024 End: 04-10-2024 Subsequent hospital visit by physician Vianey Santillan [facility] Comment on above: Anorectal malformati on Start: 04-09-2024 Telephone encounter Marixa Hernandez Work Phone: [facility] Comment on above: Insurance Issue Start: 04-08-2024 Orders Only [facility] JEWELRY SALES COORDINATOR Work Phone: [facility] Comment on above: General Inquiry Start: 10-31-2023 Encounter for other preprocedural examination EDINSON NEVES CARPENTER SUPERVISOR~[phone] [facility] Start: 10-31-2023 End: 10-31-2023 ambulatory ISRRAEL ADLER MD~[id number] [facility] Start: 10-30-2023 End: 10-31-2023 ambulatory EDINSON NEVES CARPENTER SUPERVISOR~[phone] [facility] Start: 02-07-2023 ambulatory Mackenzie Duran MD Work Phone: [facility] Comment on above: VERENICE Patient Care Con ference Start: 02-07-2023 Telephone encounter Mackenzie Duran MD Work Phone: [facility] Comment on above: Opened in Error Start: 01-22-2023 End: 01-22-2023 [facility] Start: 01-22-2023 End: 01-22-2023 Nursing evaluation of patient and report Nurse Verenice c Beac Work Phone: [facility] Comment on above: Encounter for fertil ity testing Start: 01-15-2023 End: 01-15-2023 ambulatory [facility] Facility:[facility] Start: 01-15-2023 End: 01-15-2023 Nursing evaluation [...] Start: 11-23-2022 End: 11-23-2022 ambulatory STUART GUERRERO Facility:[facility] Start: 11-23-2022 End: 11-23-2022 Nursing evaluation of patient and report Nurse Verenice c Beac Work Phone: [facility] Comment on above: Encounter for fertil ity testing Start: 11-22-2022 End: 11-22-2022 ambulatory [facility] Start: 11-22-2022 End: 11-22-2022 Nursing evaluation of patient and report Nurse Verenice [facility] Beac Work Phone: [facility] Comment on above: Female infertility ( Primary Dx); Encounter for fertility testing Start: 11-21-2022 Telephone encounter Soren Sebastian MD Work Phone: [facility] Comment on above: Freda re appt tomorr ow Start: 11-16-2022 End: 11-16-2022 ambulatory Nurse Verenice [facility] Beerna Work Phone: [facility] Comment on above: Female infertility ( Primary Dx) Start: 11-16-2022 End: 11-16-2022 Telemedicine consultation with patient Nurse Verenice Mayen Work Phone: [facility] Start: 11-15-2022 End: 11-15-2022 Nursing evaluation of patient and report Nurse Verenice renea Moralesac Work Phone: [facility] Comment on [...] evaluation of patient and report Nurse Verenice [facility] Work Phone: [facility] Comment on above: Female infertility Start: 09-04-2022 End: 09-04-2022 Nursing evaluation of patient and report Nurse Verenice [facility] Work Phone: [facility] Comment on above: Female infertility Start: 08-29-2022 End: 08-29-2022 Nursing evaluation of patient and report Nurse Verenice [facility] Beerna Work Phone: [facility] Comment on above: Female infertility Start: 08-28-2022 Telephone encounter Soren Sebastian MD Work Phone: [facility] Comment on above: re medication/was it called in ; SEt up baseline for tomorrow at [place] (prefers between 7 and 8 am) Start: 08-25-2022 Telephone encounter Sorne Sebastian MD Work Phone: [facility] Comment on above: Next Steps Start: 08-22-2022 Telephone encounter Soren Sebastian MD Work Phone: [facility] Comment on above: order injections Start: 08-17-2022 End: 08-17-2022 Patient encounter procedure Andrology Pet Care Assistant Work Phone: [facility] Comment on above: Female infertility ( Primary Dx) Start: 08-17-2022 Telephone encounter Khangnagi [facility] Comment on above: Patient Update Start: 08-15-2022 Telephone encounter Sasha Stoddard [facility] Comment on above: Patient Update Start: 08-13-2022 ambulatory Danelle Wheat PhD Work Phone: [facility] Comment on above: update Start: 08-13-2022 E-mail encounter ki dean caregiver Danelle Wheat PhD Work Phone: [employer] Start: 08-12-2022 ambulatory Danelle Wheat PhD Work Phone: [facility] Comment on above: fertilization result s Start: 08-12-2022 E-mail encounter fro jermaine caregiver Danelle Wheat PhD Work Phone: [employer] Start: 08-11-2022 End: 08-11-2022 Patient encounter procedure Wil Luke MD Work Phone: [facility] Comment on above: Female infertility ( Primary Dx) Start: 08-11-2022 End: 08-11-2022 Nursing evaluation of patient and report Nurse Verenice [facility] Beac Work Phone: [facility] Comment [...] m caregiver Ysabel Scott MD Work Phone: [email or web address] [facility] Start: 08-09-2022 End: 08-09-2022 Nursing evaluation of patient and report Nurse Verenice c Beac Work Phone: [facility] Comment on above: Female infertility Start: 08-08-2022 End: 08-08-2022 Nursing evaluation of patient and report Nurse Verenice [facility] Beac Work Phone: [facility] Comment on above: Female infertility Start: 08-07-2022 End: 08-07-2022 Orders Only Aiyana Harman PLASTICS FACTORY WORKEREnochCARPENTER SUPERVISOR Work Phone: [facility] Comment on above: Female infertility ( Primary Dx) Female infertility Start: 08-03-2022 Telephone encounter Soren Sebastian MD Work Phone: [facility] Comment on above: monitoring Start: 08-03-2022 End: 08-03-2022 Nursing evaluation of patient and report Nurse Verenice [facility] Beac Work Phone: [facility] Comment on above: Female infertility Start: 08-02-2022 End: 08-02-2022 Nursing evaluation of patient and report Nurse Verenice [facility] Beac Work Phone: [facility] Comment on above: Female infertility Start: 07-25-2022 End: 07-25-2022 Nursing evaluation of patient and report Nurse Verenice [facility] Beac Work Phone: [facility] Comment on above: Female infertility Start: 07-24-2022 Telephone encounter Soren Sebastian MD Work Phone: [facility] Comment on above: Patient Update Start: 07-06-2022 End: 07-06-2022 Nursing evaluation of patient and report Nurse Verenice [facility] Beac Work Phone: [facility] Comment [...] Start: 06-05-2022 End: 06-05-2022 ambulatory SOREN SEBASTIAN Facility:[facility] Start: 06-05-2022 End: 06-05-2022 Manual pelvic examination Soren Sebastian MD Work Phone: [facility] Comment on above: Diminished ovarian r eserve due to low antral follicle (Primary Dx); Encounter for fertility planning; Female pelvic peritoneal adhesions Start: 06-05-2022 End: 06-05-2022 Telemedicine consultation with patient Soren Sebastian MD Work Phone: [facility] Start: 05-08-2022 Telephone encounter Soren Sebastian MD Work Phone: [facility] Comment on above: Patient Question Start: 05-02-2022 Telephone encounter Soren Sebastian MD Work Phone: [facility] Comment on above: Freda; Freda bleedin g a lot this am/stopped inj Start: 05-01-2022 End: 05-01-2022 Nursing evaluation of patient and report Nurse Verenice [facility] Beerna Work Phone: [facility] Comment on above: Female infertility ( Primary Dx); Encounter for fertility testing Start: 04-24-2022 End: 04-24-2022 Nursing evaluation of patient and report Nurse Verenice [facility] Beerna Work Phone: [facility] Comment [...] 03-02-2022 End: 03-10-2022 Patient encounter procedure Andrology Pet Care Assistant Work Phone: [facility] Comment on above: Primary female infer tility (Primary Dx) examinatio n or test, unconfirmed (Primary Dx); Infertility, female Start: 02-24-2022 End: 02-24-2022 Nursing evaluation of patient and report Nurse Verenice [facility] Beac Work Phone: [facility] Comment on above: Female infertility ( Primary Dx) Start: 02-22-2022 End: 02-22-2022 Nursing evaluation of patient and report Nurse Verenice [facility] Beac Work Phone: [facility] Comment [...] evaluation of patient and report Nurse Verenice [facility] Beac Work Phone: [facility] Comment on above: Primary female infer tility Start: 12-26-2021 Telephone encounter Soren Sebastian MD Work Phone: [facility] Comment on above: FET med orders Start: 12-21-2021 End: 12-21-2021 Patient encounter procedure Wil Luke MD Work Phone: [facility] Comment on above: Fertility testing (P rimary Dx); Pre-procedural laboratory examination Start: 12-21-2021 End: 12-21-2021 Patient encounter status Wil Luke MD Work Phone: [facility] Start: 12-20-2021 Telephone encounter Soren Sebastian MD Work Phone: [facility] Comment on above: Rose Marie re sis/hystero scopy tomorrow Start: 11-30-2021 Telephone encounter Soren Sebastian MD Work Phone: [facility] Comment on above: freda Start: 10-16-2021 End: 10-16-2021 Patient encounter procedure Andrology Pet Care Assistant Work Phone: [facility] Comment on above: Female infertility ( Primary Dx) Start: 10-10-2021 End: 10-10-2021 Patient encounter procedure Kieran Palafox MD Work Phone: [facility] Comment on above: Female infertility ( Primary Dx) Start: 10-09-2021 End: 10-09-2021 Nursing evaluation of patient and report Nurse [facility] Beac Work Phone: [facility] Comment on above: Encounter for fertil ity testing Start: 10-08-2021 End: 10-08-2021 Nursing evaluation of patient and report Nurse Verenice [facility] Beac Work Phone: [facility] Comment on above: Encounter for fertil ity testing (Primary Dx) Start: 10-07-2021 Orders Only Aiyana A Yozipo vich PLASTICS FACTORY 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 Work Phone: [facility] Comment on above: Female infertility ( Primary Dx) [place] - [facility] meds f or stephanie and this wknd Start: 10-06-2021 End: 10-06-2021 Orders Only Aiyana A Yozipovich PLASTICS FACTORY 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 Work Phone: [facility] Comment on above: Female infertility ( Primary Dx) Female infertility Start: 10-05-2021 End: 10-05-2021 Nursing evaluation of patient and report Nurse Verenice [facility] Beac Work Phone: [facility] Comment on above: Female infertility Start: 10-02-2021 End: 10-02-2021 Nursing evaluation of patient and report Nurse Verenice [facility] Beac Work Phone: [facility] Comment on above: Female infertility Start: 09-28-2021 End: 09-28-2021 [facility] Work [facility] Comment on above: Female infertility ( Primary Dx) Start: 09-26-2021 End: 09-26-2021 [facility] Work Phone[facility] Comment on above: Female infertility ( Primary Dx) Start: 09-22-2021 Orders Only Aiyana anderson APRN.CARPENTER SUPERVISOR Work Phone: [facility] Comment on above: Female infertility ( Primary Dx) Xochitl/re self pay u s and nurse visit Start: 12-22-2020 End: 03-16-2021 ambulatory [facility] Start: 12-01-2020 ambulatory Facility:[facility] Procedures Date Procedure Procedure Detail Performing Clinician [...] HCV Quant by PCR testing - HCVPCR #[id number] Non Reactive: < 0.8 Equivocal: >/= 0.8 to < 1.0 Reactive: >/= 1.0The CDC requires that a reactive/equivocal HCV antibody result be sent out for confirmation. HCV Quant by PCR testing. Start: 10-30-[address] Imani Helm DO Work Phone: Comment on above: Antibody Result: Int erpretationNon-Reactive: Non- ImmuneReactive: ImmuneThe following results were obtained with the [facility] Rubella IgG assay. Results from assays of other manufacturers cannot be used interchangeably. Start: 10-30-2024 Serologic test for syphilis Dr. Imani Helm DO Work Phone: Start: 10-24-[address] Imani Helm DO Work Phone: Start: 10-09-2024 Us retroperitoneal r eal time w/image complete Jesse Edwards CPNP Work Phone: Start: 10-09-2024 Replace gastrostomy/cecostomy tube percutaneous Andres Fitzgerald JEWELRY SALES COORDINATOR Work Phone: Start: 04-10-2024 Replace gastrostomy/cecostomy tube percutaneous Chaitanya Akins JEWELRY SALES COORDINATOR Work Phone: Start: 04-10-2024 Radiologic exam abdo men 1 view Chaitanya Akins JEWELRY SALES COORDINATOR Work Phone: Start: 01-22-2023 Assay of progesterone V jasmine Guerrero PLASTICS FACTORY 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 Work Phone: Start: 11-23-2022 Assay of estradiol Guthrie daiwt Dudziak PLASTICS FACTORY 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 Work Phone: Start: 11-22-2022 Us pelvic nonobstetr ic image dcmtn limited/f/u Stuart Dudziak PLASTICS FACTORY 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 Work Phone: Start: 11-22-2022 Assay of estradiol Guthrie dawit Dudziak PLASTICS FACTORY 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 Work Phone: Start: 11-15-2022 Assay of estradiol Guthrie dawit Dudziak PLASTICS FACTORY 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 Work Phone: Start: 09-07-2022 Us pelvic nonobstetr ic image dcmtn limited/f/u Marina Mindzora PLASTICS FACTORY 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 Work Phone: Start: 09-07-2022 Assay of estradiol Avery en Mindzora PLASTICS FACTORY 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 Work Phone: Start: 09-04-2022 Us pelvic nonobstetr ic image dcmtn limited/f/u Marina Mindzora PLASTICS FACTORY 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 Work Phone: Start: 09-04-2022 Assay of estradiol Avery en Mindzora PLASTICS FACTORY 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 Work Phone: Start: 08-29-2022 Us pelvic nonobstetr ic image dcmtn limited/f/u Marina Mindzora PLASTICS FACTORY 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 Work Phone: Start: 08-11-2022 Us pelvic nonobstetr ic image dcmtn limited/f/u Shelby Rojas PA-C Work Phone: Start: 08-11-2022 WHI ULTRASOUND GUIDE D PROCEDURE Mackenzie Duran MD Work Phone: Start: 08-10-2022 Gonadotropin chorion ic quantitative Ysabel Scott MD Work Phone: Start: 08-09-2022 Us pelvic nonobstetr ic image dcmtn limited/f/u Shelby Rojas PA-C Work Phone: Start: 08-09-2022 Assay of estradiol Elizabeth dawit Dudziak PLASTICS FACTORY 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 Work Phone: Start: 08-08-2022 Us pelvic nonobstetr ic image dcmtn limited/f/u Shelby Smolen PA-C Work Phone: Start: 08-08-2022 Assay of estradiol Javi Scott MD Work Phone: Start: 08-07-2022 Us pelvic nonobstetr ic image dcmtn limited/f/u Shelby Smolen PA-C Work Phone: Start: 08-07-2022 Assay of estradiol Elizabeth dawit Dudziak PLASTICS FACTORY 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 Work Phone: Start: 08-03-2022 Us pelvic nonobstetr ic image dcmtn limited/f/u Shelby Smolen PA-C Work Phone: Start: 08-03-2022 Assay of estradiol Panda Duran MD Work Phone: Start: 08-02-2022 Us pelvic nonobstetr ic image dcmtn limited/f/u Stuart Dudziak PLASTICS FACTORY 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 Work Phone: Start: 08-02-2022 Assay of estradiol Chante Cardenas MD Work Phone: Start: 07-25-2022 Us pelvic nonobstetr ic image dcmtn limited/f/u Shelby Smolen PA-C Work Phone: Start: 07-25-2022 Assay of estradiol Guthrie dawit Dudziak PLASTICS FACTORY 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 Work Phone: Start: 07-06-2022 Us pelvic nonobstetr ic image dcmtn limited/f/u Stuart Dudziak PLASTICS FACTORY 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 Work Phone: Start: 07-06-2022 Assay of estradiol Iryn a Smolen PA-C Work Phone: Start: 05-01-2022 Us pelvic nonobstetr ic image dcmtn limited/f/u Stuart Dudziak PLASTICS FACTORY 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 Work Phone: Start: 05-01-2022 Assay of estradiol Elizabeth dawit Dudziak PLASTICS FACTORY 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 Work Phone: Start: 04-24-2022 Us pelvic nonobstetr ic image dcmtn limited/f/u Stuart Dudziak PLASTICS FACTORY 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 Work Phone: Start: 04-24-2022 Assay of estradiol Guthrie dawit Dudziak PLASTICS FACTORY 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 Work Phone: Start: 02-24-2022 Assay of estradiol Guthrie dawit Dudziak PLASTICS FACTORY 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 Work Phone: Start: 02-22-2022 Us pelvic nonobstetr ic image dcmtn limited/f/u Aiyana A Yozipovich PLASTICS FACTORY 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 Work Phone: Start: 02-22-2022 Assay of estradiol Albino y A Yozipovich PLASTICS FACTORY 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 Work Phone: Start: 01-26-2022 Assay of estradiol Elizabeth dawit Dudziak PLASTICS FACTORY WORKER.[facility] Work Phone: Start: 12-21-2021 Urine test visual [...] Assay of estradiol Albino y A Yozipovich PLASTICS FACTORY WORKER.[facility] Work Phone: Plan of Treatment Date Care Activity Detail Author Start: 03-03-2035 Tetanus vaccination TETANUS [facility] Start: 10-08-2026 End: 10-09-2026 US Kidney US Kidney Imaging Routine Anorectal malformation Expected: 10/08/2026 (Approximate), Expires: 10/09/2026 [facility] Work Phone: Comment on above: Expected: 10/08/2026 (Approximate), Expires: 10/09/2026 Start: 05-08-2025 End: 05-08-2025 Evaluation and management of inpatient K6N Comment on above: Uterus didelphys DELIVERY Start: 05-08-2025 End: 05-08-2025 Ob antepartum care dlvr & DELIVERY Uterus didelphys Cloacal malformation 05/08/2025 7:30 AM EST [facility] Start: 04-14-2025 End: 04-14-2025 Follow-up encounter 04/14/2025 10:30 AM EDT Follow Up Visit [facility] [place] [address] [facility] [address] [place] [address] [phone] Raquel Lainez MD [address] [facility] [address] [place] [phone] [facility] [place] Start: 04-02-2025 End: 04-02-2025 Follow-up encounter 04/02/2025 8:15 AM EDT Follow Up Visit [facility] [address] [phone] [facility] [place] Start: 04-01-2025 RSV Immunization (1 - Risk 1-dose series) RSV Immunization (1 - Risk 1-dose series) [facility] Start: 04-01-2025 RSV VACCINE (1 - Ris k 1-dose series) RSV VACCINE (1 - Risk 1-dose series) [facility] Start: 03-31-2025 End: 03-31-2025 Follow-up encounter 03/31/2025 2:30 PM EDT Follow Up Visit [facility] [place] [address] [facility] [address] [place] [phone] Raquel Lainez MD [address] [facility] [address] [place] [phone] [facility] [place] Start: 03-17-2025 End: 03-17-2025 Follow-up encounter 03/17/2025 8:30 AM EDT Follow Up Visit [facility] [place] [address] [facility] [address] [place] [phone] Raquel Lainez MD [address] [phone] [facility] [place] Start: 03-03-2025 End: 03-03-2025 Follow-up encounter 03/03/2025 9:30 AM EDT Follow Up Visit [facility] [place] [address] [phone] Raqeul Lainez MD [address] [phone] [facility] [place] Start: 02-19-2025 CBC W Auto Differential panel - Blood [facility] Start: 02-19-2025 Measurement of gluco se 2 hours after glucose challenge for glucose tolerance test [facility] Start: 02-19-2025 Serologic test for syphilis [facility] Start: 02-19-2025 [facility] Start: 02-18-2025 End: 02-04-2026 heart monitoring ECHOCARDIOGRAM, ECHO Routine resulting from in vitro fertilization, antepartum Expected: 02/18/2025 (Approximate), Expires: 02/04/2026 [facility] Work Phone: Comment on above: Expected: 02/18/2025 (Approximate), Expires: 02/04/2026 Start: 02-16-2025 COVID-19 VACCINE ( season) COVID-19 VACCINE ( season) [facility] Start: 02-16-2025 Influenza vaccination INFLUENZA VACC INE (#1) [facility] Start: 01-22-2025 End: 01-22-2026 OB ultrasound panel US OB GROWTH/DATING > 14WEEKS Imaging Routine Encounter for ultrasound to assess interval growth of fetus AMA (advanced maternal age) multigravida 35+, second trimester Expected: 01/22/2025, Expires: 01/22/2026 [facility] Comment on above: Expected: 01/22/2025 , Expires: 01/22/2026 Start: 01-22-2025 End: 01-22-2025 Follow-up encounter 01/22/2025 1:00 PM EDT Follow Up Visit [facility] [address] [place] [phone] [facility] [place] Start: 12-30-2024 End: 12-30-2025 [id number] [Presence] in Serum or Plasma [facility] Comment on above: Expected: 12/30/2024 , Expires: 12/30/2025 Start: 12-30-2024 End: 12-30-2025 OB ultrasound panel US OB GROWTH/DATING > 14WEEKS Imaging Routine Encounter for ultrasound to assess interval growth of fetus Encounter for follow-up ultrasound of anatomy Expected: 12/30/2024, Expires: 12/30/2025 [facility] Comment on above: Expected: 12/30/2024 , Expires: 12/30/2025 Start: 10-30-2024 CBC W Auto Differential panel - Blood [facility] Start: 10-30-2024 Hepatitis C antibody measurement [facility] Start: 10-30-2024 Rubella IgG measurement [facility] Start: 10-30-2024 Serologic test for syphilis [facility] Start: 10-30-2024 T4 free measurement [facility] Start: 10-30-2024 Thyroid stimulating hormone measurement [facility] Start: 10-30-2024 [facility] Start: 10-09-2024 End: 04-10-2025 IR Consult IR Consult Imaging Routine Anorectal malformation Other constipation History of antegrade continence enema procedure Expected: 10/09/2024 (Approximate), Expires: 04/10/2025 [facility] Comment on above: Expected: 10/09/2024 (Approximate), Expires: 04/10/2025 Start: 10-09-2024 End: 04-10-2025 XR Abdomen Supine and Upright XR Abdomen - Supine Imaging Routine Anorectal malformation Other constipation History of antegrade continence enema procedure Expected: 10/09/2024 (Approximate), Expires: 04/10/2025 [facility] Work Phone: Comment on above: Expected: 10/09/2024 (Approximate), Expires: 04/10/2025 Start: 10-09-2024 End: 10-09-2024 Patient encounter procedure Ultrasound [facility] Start: 05-09-2024 End: 04-09-2025 XR Abdomen Supine and Upright XR Abdomen - Supine Imaging Routine Anorectal malformation Expected: 05/09/2024 (Approximate), Expires: 04/09/2025 [facility] Work Phone: Comment on above: Expected: 05/09/2024 (Approximate), Expires: 04/09/2025 Start: 04-10-2024 Subsequent hospital visit by physician 04/10/2024 1:30 PM EDT Hospital Encounter Interventional [address] [address] Discharge Disposition: Home Interventional Rad [facility] Start: 04-10-2024 End: 04-10-2024 Patient encounter [facility] Start: 04-09-2024 End: 04-08-2025 IR Consult IR Consult Imaging Routine Anorectal malformation Expected: 04/09/2024 (Approximate), Expires: 04/08/2025 [facility] Work Phone: Comment on above: Expected: 04/09/2024 (Approximate), Expires: 04/08/2025 Start: 02-17-2024 COVID-19 Vaccine ( season) COVID-19 Vaccine ( season) [facility] Start: 02-17-2024 Influenza vaccination Influenza Vacc ine (#1) [facility] Start: 02-16-2023 Influenza vaccination INFLUENZA (#1) [facility] Start: 08-08-2022 End: 10-08-2022 Estradiol (E2) [Mass/volume] in Serum or Plasma ESTRADIOL-17B BLD Lab STAT Female infertility Expected: 08/08/2022, Expires: 10/08/2022 [facility] Work Phone: Comment on above: Expected: 08/08/2022 , Expires: 10/08/2022 Start: 08-08-2022 End: 10-08-2022 Lutropin [Units/volume] in Serum or Plasma LUTEINIZING HORMONE Lab STAT Female infertility Expected: 08/08/2022, Expires: 10/08/2022 [facility] Work Phone: Comment on above: Expected: 08/08/2022 , Expires: 10/08/2022 Start: 08-08-2022 End: 10-08-2022 Progesterone [Mass/volume] in Serum or Plasma PROGESTERONE BLD Lab STAT Female infertility Expected: 08/08/2022, Expires: 10/08/2022 [facility] Work Phone: Comment on above: Expected: 08/08/2022 , Expires: 10/08/2022 Start: 08-01-2022 End: 10-01-2022 Estradiol (E2) [Mass/volume] in Serum or Plasma ESTRADIOL-17B BLD Lab STAT Female infertility Expected: 08/01/2022 (Approximate), Expires: 10/01/2022 [facility] Work Phone: Comment on above: Expected: 08/01/2022 (Approximate), Expires: 10/01/2022 Start: 07-26-2022 End: 09-25-2022 Lutropin [Units/volume] in Serum or Plasma LUTEINIZING HORMONE Lab STAT Female infertility Expected: 07/26/2022, Expires: 09/25/2022 [facility] Work Phone: Comment on above: Expected: 07/26/2022 , Expires: 09/25/2022 Start: 07-26-2022 End: 09-25-2022 Progesterone [Mass/volume] in Serum or Plasma PROGESTERONE BLD Lab STAT Female infertility Expected: 07/26/2022, Expires: 09/25/2022 [facility] Work Phone: Comment on above: Expected: 07/26/2022 , Expires: 09/25/2022 Start: 07-24-2022 End: 07-24-2023 FOLLICULAR US WHI FOLLICULAR US WHI Anc Imaging Routine Female infertility Expected: 07/24/2022, Expires: 07/24/2023 [facility] Work Phone: Comment on above: Expected: 07/24/2022 , Expires: 07/24/2023 Start: 06-18-2022 DEPRESSION ASSESSMENT DEPRESSION ASS ESSMENT [facility] Start: 05-01-2022 End: 07-01-2022 WHIIVF ANTI MULLERIAN HORMONE WHIIVF ANTI MULLERIAN HORMONE Lab STAT Encounter for fertility testing Expected: 05/01/2022, Expires: 07/01/2022 [facility] Work Phone: Comment on above: Expected: 05/01/2022 , Expires: 07/01/2022 Start: 04-24-2022 End: 06-24-2022 Hematocrit [Volume Fraction] of Blood HEMATOCRIT (HCT) Lab STAT Female infertility Expected: 04/24/2022, Expires: 06/24/2022 [facility] Work Phone: Comment on above: Expected: 04/24/2022 , Expires: 06/24/2022 Start: 03-16-2022 End: 05-16-2022 Choriogonadotropin.bet a subunit [Units/volume] in Serum or Plasma HCG QUANTITATIVE Lab STAT examination or test, unconfirmed Expected: 03/16/2022, Expires: 05/16/2022 [facility] Work Phone: Comment on above: Expected: 03/16/2022 , Expires: 05/16/2022 Start: 02-16-2022 Influenza vaccination [facility] Start: 12-26-2021 End: 02-25-2022 Estradiol (E2) [Mass/volume] in Serum or Plasma ESTRADIOL-17B BLD Lab STAT Primary female infertility Expected: 12/26/2021, Expires: 02/25/2022 [facility] Work Phone: Comment on above: Expected: 12/26/2021 , Expires: 02/25/2022 Start: 12-26-2021 End: 02-25-2022 Progesterone [Mass/volume] in Serum or Plasma PROGESTERONE BLD Lab STAT Primary female infertility Expected: 12/26/2021, Expires: 02/25/2022 [facility] Work Phone: Comment on above: Expected: 12/26/2021 , Expires: 02/25/2022 Start: 10-09-2021 End: 12-09-2021 PROGESTERONE BLD PROGESTERONE BLD Lab STAT Female infertility Expected: 10/09/2021 (Approximate), Expires: 12/09/2021 [facility] Work Phone: Comment on above: Expected: 10/09/2021 (Approximate), Expires: 12/09/2021 Start: 10-08-2021 End: 12-08-2021 Estradiol (E2) [Mass/volume] in Serum or Plasma ESTRADIOL-17B BLD Lab Routine Encounter for fertility testing Expected: 10/08/2021, Expires: 12/08/2021 [facility] Work Phone: Comment on above: Expected: 10/08/2021 , Expires: 12/08/2021 Start: 10-07-2021 End: 01-06-2022 Estradiol (E2) [Mass/volume] in Serum or Plasma ESTRADIOL-17B BLD Lab STAT Female infertility Expected: 10/07/2021, Expires: 01/06/2022 [facility] Work Phone: Comment on above: Expected: 10/07/2021 , Expires: 01/06/2022 Start: 10-06-2021 End: 12-06-2021 PROGESTERONE BLD PROGESTERONE BLD Lab STAT Female infertility Expected: 10/06/2021, Expires: 12/06/2021 [facility] Work Phone: Comment on above: Expected: 10/06/2021 , Expires: 12/06/2021 Start: 09-22-2021 End: 12-22-2021 Estradiol (E2) [Mass/volume] in Serum or Plasma ESTRADIOL-17B BLD Lab STAT Female infertility Expected: 09/22/2021, Expires: 12/22/2021 [facility] Work Phone: Comment on above: Expected: 09/22/2021 , Expires: 12/22/2021 Start: 06-18-2021 DEPRESSION ASSESSMENT DEPRESSION ASS ESSMENT [facility] Start: 12-25-2020 COVID-19 VACCINE (3 - Booster for Moderna series) COVID-19 VACCINE (3 - Booster for Moderna series) [facility] Start: 09-22-2020 COVID-19 VACCINE (3 - Booster for Moderna series) COVID-19 VACCINE (3 - Booster for Moderna series) [facility] Start: 09-22-2020 COVID-19 VACCINE (3 - Moderna series) COVID-19 VACCINE (3 - Moderna series) [facility] Start: 2016 HPV TESTING HPV TESTING [facility] Start: 2013 HPV Vaccine (1 - 3-dose SCDM series) HPV Vaccine (1 - 3-dose SCDM series) [facility] Start: 08-28-2007 PAP TESTING PAP TESTING [facility] Start: 08-28-2007 Screening for malignant neoplasm of cervix CERVICAL CANCER SCREENING DISCUSSION [facility] Start: 2005 Hepatitis B vaccination HEP B VACCINE (1 of 3 - 19+ 3-dose series) [facility] Start: 2005 Hepatitis B Vaccine (1 of 3 - 19+ 3-dose series) Hepatitis B Vaccine (1 of 3 - 19+ 3-dose series) [facility] Start: 2005 Third diphtheria, tetanus and acellular pertussis (DTaP) vaccination TDAP (ADULT) [facility] Start: 2005 Urine microalbumin profile DTAP,TDAP,TD (1 - Tdap) [facility] Start: 2001 HIV screening HIV SCREENING DISCUSSION [facility] Start: 08-28-1999 Varicella Vaccine (1 of 2 - 13+ 2-dose series) Varicella Vaccine (1 of 2 - 13+ 2-dose series) [facility] Start: 1998 Adult depression screening assessment DEPRESSION SCREENING [facility] Start: 1993 DTaP/Tdap/Td Vaccine (1 - Tdap) DTaP/Tdap/Td Vaccine (1 - Tdap) [facility] Start: 08-28-1987 MMR Vaccine (1 of 1 - Standard series) MMR Vaccine (1 of 1 - Standard series) [facility] Start: 1986 HEPATITIS B (1 of 3 - 3-dose series) HEPATITIS B (1 of 3 - 3-dose series) [facility] Start: 1986 Hepatitis C screening HEPATITI S C VIRUS SCREENING [facility] Start: 1986 Tetanus vaccination TETANUS [facility] Start: 1986 Thyroid stimulating hormone measurement TSH [facility] CBC W Auto Differential panel - Blood [facility] CBC W Auto Differential panel - Blood [facility] CHG US PREG UTERUS REAL TIME F/U TRNSABDL PER FETUS CHG US PREG UTERUS REAL TIME F/U TRNSABDL PER FETUS IN - OFFICE PERFORMED IMAGING Routine Encounter for follow-up ultrasound of anatomy 22 weeks gestation of AMA (advanced maternal age) multigravida 35+, second trimester Ordered: 01/22/2025 [facility] Comment on above: Ordered: 01/22/2025 CHG US PREG UTERUS REAL TIME W/IMAGE DCMTN TRANSVAG CHG US PREG UTERUS REAL TIME W/IMAGE DCMTN TRANSVAG IN - OFFICE PERFORMED IMAGING Routine Encounter for screening for risk of pre-term labor 18 weeks gestation of Ordered: 12/30/2024 [facility] Comment on above: Ordered: 12/30/2024 CHG US PREG UTERUS W/DETAIL ZORAN 1ST GESTATION CHG US PREG UTERUS W/DETAIL ZORAN 1ST GESTATION IN - OFFICE PERFORMED IMAGING Routine Encounter for anatomic survey 18 weeks gestation of AMA (advanced maternal age) multigravida 35+, second trimester Ordered: 12/30/2024 [facility] Comment on above: Ordered: 12/30/2024 Erythrocyte mean corpuscular volume determination [facility] Erythrocyte mean corpuscular volume determination [facility] End: 04-11-2023 Estradiol (E2) [Mass/volume] in Serum or Plasma ESTRADIOL-17B BLD Lab STAT Encounter for fertility testing 6 Occurrences starting 04/11/2022 until 04/11/2023 [facility] Work Phone: Comment on above: 6 Occurrences starti ng 04/11/2022 until 04/11/2023 End: 08-24-2022 Estradiol (E2) [Mass/volume] in Serum or Plasma ESTRADIOL-17B BLD Lab STAT Female infertility 6 Occurrences starting 07/24/2022 until 08/24/2022 [facility] Work Phone: Comment on above: 6 Occurrences starti ng 07/24/2022 until 08/24/2022 End: 10-30-2022 Estradiol (E2) [Mass/volume] in Serum or Plasma ESTRADIOL-17B BLD Lab STAT Female infertility 6 Occurrences starting 08/28/2022 until 10/30/2022 [facility] Work Phone: Comment on above: 6 Occurrences starti ng 08/28/2022 until 10/30/2022 End: 10-22-2021 FOLLICULAR US WHI FOLLICULAR US WHI Anc Imaging Routine Female infertility 6 Occurrences starting 09/22/2021 until 10/22/2021 [facility] Work Phone: Comment on above: 6 Occurrences starti ng 09/22/2021 until 10/22/2021 End: 11-05-2021 FOLLICULAR US WHI FOLLICULAR US WHI Anc Imaging Routine Female infertility 6 Occurrences starting 10/06/2021 until 11/05/2021 [facility] Work Phone: Comment on above: 6 Occurrences starti ng 10/06/2021 until 11/05/2021 FOLLICULAR US WHI FOLLICULAR US WHI Anc Imaging Routine Primary female infertility Ordered: 12/26/2021 [facility] Work Phone: Comment on above: Ordered: 12/26/2021 End: 03-24-2022 FOLLICULAR US WHI FOLLICULAR US WHI Anc Imaging Routine Female infertility 6 Occurrences starting 02/22/2022 until 03/24/2022, 1 completed [facility] Work Phone: Comment on above: 6 Occurrences starti ng 02/22/2022 until 03/24/2022, 1 completed End: 04-11-2023 FOLLICULAR US WHI FOLLICULAR US WHI Anc Imaging Routine Encounter for fertility testing Daily for 6 Occurrences starting 04/11/2022 until 04/11/2023 [facility] Work Phone: Comment on above: Daily for 6 Occurren javy starting 04/11/2022 until 04/11/2023 End: 10-30-2022 FOLLICULAR US WHI FOLLICULAR US WHI Anc Imaging Routine Female infertility Daily for 6 Occurrences starting 08/28/2022 until 10/30/2022 [facility] Work Phone: Comment on above: Daily for 6 Occurren javy starting 08/28/2022 until 10/30/2022 Hematocrit [Volume Fraction] of Blood [facility] Hematocrit [Volume Fraction] of Blood [facility] Hemoglobin [Mass/volume] in Blood [facility] Hemoglobin [Mass/volume] in Blood [facility] Hepatitis B virus surface Ag [Presence] in Serum [facility] Hepatitis C antibody measurement [facility] Leukocytes [#/volume ] in Blood [facility] Leukocytes [#/volume ] in Blood [facility] Mean corpuscular hemoglobin concentration determination [facility] Mean corpuscular hemoglobin concentration determination [facility] Mean corpuscular hemoglobin determination [facility] Mean corpuscular hemoglobin determination [facility] Measurement of gluco se 2 hours after glucose challenge for glucose tolerance test [facility] Neutrophil count [facility] Neutrophil count [facility] Neutrophil percent differential count [facility] Neutrophil percent differential count [facility] End: 11-30-2022 OFFICE HYSTEROSCOPY OFFICE HYSTEROSCOPY Procedures Routine Encounter for fertility testing 1 Occurrences starting 12/01/2021 until 11/30/2022 [facility] Work Phone: Comment on above: 1 Occurrences starti ng 12/01/2021 until 11/30/2022 Platelets [#/volume] in Blood [facility] Platelets [#/volume] in Blood [facility] Procedure [facility] Red blood cell count [facility] Red blood cell count [facility] Red cell distributio n width determination [facility] Red cell distributio n width determination [facility] Rubella IgG measurement [facility] Serologic test for syphilis [facility] Serologic test for syphilis [facility] T4 free measurement [facility] Thyroid stimulating hormone measurement [facility] Immunizations Immunization Date Immunization Notes Care Provider [facility] 03-03-2025 tetanus toxoid, reduced diphtheria toxoid, and acellular pertussis vaccine, adsorbed Raquel Lainez MD Work Phone: [facility] 04-27-2022 influenza, injectabl e, quadrivalent, preservative free Lyn Arguelles MD Work Phone: [facility] 04-27-2022 influenza virus vaccine, unspecified formulation Andres Fitzgerald APN Work Phone: [facility] 07-28-2020 COVID-19 vaccine, fu ll dose (MODERNA) Aiyana Harman PLASTICS FACTORY 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 Work Phone: [facility] 06-30-2020 COVID-19 vaccine, fu ll dose (MODERNA) Aiyanasamreen Harman PLASTICS FACTORY 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 Work Phone: [facility] 04-06-2020 influenza virus vaccine, unspecified formulation Aiyana Harman PLASTICS FACTORY 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 Work Phone: [facility] 03-24-2020 influenza, seasonal, injectable Aiyana Harman PLASTICS FACTORY 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 Work Phone: [facility] Payers Date Payer Category Payer Managed Care (unspecified) [facility] [id number] 2024 Self-pay 2022 Unknown [id number] 2021 Private Health Insurance [facility] CHOICE PLUS [id number] 2021-Present [phone] [address] [place] [address] O [id number] 2021 Private Health Insurance [id number] 2021 Unknown [id number] 2020 Unknown [id number] 2015 Unknown [id number] 1986 Unknown [id number] 2.16.840.1.345454.3.579.2. 594 1986 Unknown [id number] 2.16.840.1.783069.3.579.2. 651 1986 Unknown [id number] 2.16.840.1.400476.3.579.2. 598 1986 Unknown [id number] 2.16.840.1.306814.3.579.2. 598 1986 Unknown [id number] 2.16.840.1.164419.3.579.2. 479 1986 Unknown [id number] 2.16.840.1.114268.3.579.2. 479 1986 Unknown [id number] 2.16.840.1.727955.3.579.2. 430 1986 Unknown [id number] 2.16.840.1.466777.3.579.2. 430 1986 Unknown [id number] 2.16.840.1.081184.3.579.2. 430 1986 Unknown [id number] 2.16.840.1.979324.3.579.2. 430 1986 Unknown [id number] 2.16.840.1.771375.3.579.2. 430 1986 Unknown [id number] 2.16.840.1.526394.3.579.2. 430 1986 Unknown [id number] 2.16.840.1.657605.3.579.2. 430 1986 Unknown [id number] 2.16.840.1.252123.3.579.2. 594 1986 Unknown [id number] 2.16.840.1.701420.3.579.2. 594 1986 Unknown [id number] 2.16.840.1.637147.3.579.2. 594 1986 Unknown [id number] 2.16.840.1.636531.3.579.2. 594 1959 Unknown [id number] Self-pay [id number] Unknown [id number] Unknown [id number] 2.16.840.1.771114.3.579.2. 462 Unknown [id number] 2.16.840.1.054795.3.579.2. 462 Unknown [id number] 2.16.840.1.527516.3.579.2. 462 Unknown [id number] 2.16.840.1.862916.3.579.2. 462 Unknown [id number] 2.16.840.1.595643.3.579.2. 462 Unknown [id number] 2.16.840.1.688977.3.579.2. 462 Unknown [id number] 2.16.840.1.367284.3.579.2. 462 Unknown [id number] 2.16.840.1.553845.3.579.2. 462 Unknown [id number] 2.16.840.1.893196.3.579.2. 462 Unknown [id number] 2.16.840.1.565113.3.579.2. 462 Unknown [id number] 2.16.840.1.750564.3.579.2. 462 Unknown [id number] 2.16.840.1.751527.3.579.2. 462 Unknown [id number] 2.16.840.1.464379.3.579.2. 462 Unknown [id number] 2.16.840.1.704456.3.579.2. 462 Unknown [id number] 2.16.840.1.571578.3.579.2. 462 Unknown [id number] 2.16.840.1.019127.3.579.2. 462 Unknown [id number] 2.16.840.1.013395.3.579.2. 462 Social History Date Type Detail Facility Start: 10-01-2019 End: 12-30-2024 Tobacco smoking status NHIS Never smoked tobacco [facility] Work Phone: Start: 10-01-2019 End: 12-30-2024 Tobacco use and exposure Smokeless tobacco non-user [facility] Work Phone: Start: 03-16-2021 End: 12-30-2024 Alcohol intake Ex-drinker (finding) [facility] Start: 1985 Sex Assigned At Female [facility] Start: 09-10-2021 End: 04-24-2022 Exposure to SARS-CoV-2 (event) Not sure [facility] Work Phone: Start: 10-06-2021 End: 10-16-2021 Exposure to SARS-CoV-2 (event) Unable to assess [facility] Start: 10-10-2021 End: 12-30-2024 History of Social function [facility] Start: 10-10-2021 End: 12-30-2024 Tobacco use panel [facility] National Score (1-100), lower number is lower risk Not on file [facility] Start: 12-23-2019 Gender identity Identifies as female gender (finding) [facility] Start: 12-23-2019 Sexual orientation Heterosexual (fin ding) [facility] Tobacco smoking status WIIS Tobacco smoking consumption unknown [facility] (I/We) worried whether (my/our) food would run out before (I/we) got money to buy more. Never true [facility] In the past 12 months, was there a time when you were not able to pay the mortgage or rent on time? No [facility] Start: 1985 [facility] Start: 04-14-2016 Alcohol Alcohol [facility] Start: 04-14-2016 Tobacco Use Tobacco Use [facility] Start: 09-03-2024 [facility] Start: 07-21-2012 Sex Female (finding) [facility] NEGATED: Highlighted rowStart: SUZYF History of tobacco use Passive smoker [facility] Medical Equipment Procedure Code Equipment Code [...] used to mix lo w dose HCG Goals Date Patient Goal Desired Activity /State Personal health goal Clinical Notes 09-22-2021 to 03-03-2025 Raquel Lainez MD - 03/03/2025 9:30 AM Dee Dee Michaels - 02/09/2025 1:00 PM EDTPatient InstructionsYudy Ashley MD - 01/22/2025 1:00 PM EDTFrederick Baugh - 12/30/2024 11:15 AM EDT Note Date & Type Note Facility 03-03-2025 History of Present illness Narrative Pt has her c/s scheduled Has her c/s scheduled 05/08/25 Will do tdap today Declines flu Good movement Doing kick counts. Struggling with her flushes. She typically flushes daily--she has been putting it off--she last flushed yesterday--took from noon until 4 Avoiding certain foods, afraid, unable to leave to attend family gatherings. cardiac echo was reassuring [facility] USN scheduled 04/02/25. Reached out to Dr. 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 Baby soap is at 10, Andres suggested increasing to 40--that gave her loose stools for one day. So went back to 10. Raquel Lainez MD documented in this encounter [facility] 02-19-2025 Progress note [facility] 02-09-2025 History of Present illness Narrative See Echo Report documented in this encounter [facility] 02-09-2025 Instructions Frederick Beck RN - 02/09/2025 1:00 PM EDT Images from the original note were not included. Call your primary OB or go to the nearest hospital if you think you are in labor. Call 911 for any emergency. All delivery plans should be discussed with your primary OBGYN or maternal medicine provider. Call [phone]), option 2 to speak with the Center [...] your doctor right away. You can visit [email or web address] or scan the QR Code below to download the free jerri to help track your baby's kick counts. documented in this encounter [facility] 01-22-2025 History of Present illness Narrative An DITCHING MACHINE ENGINEER ultrasound was performed today. Our ultrasound exams are reported in the system. The complete report, including recommendations, are faxed separately to outside physician offices. If your office utilizes [employer], the ultrasound reports can be found under the imaging tab in Chart Review. Please click on view report under imaging report and not show images. If accessing this information through [employer], it is located under the Other Results tab and is not located in the documents portion of this system documented in this encounter [facility] 12-30-2024 History of Present illness Narrative Latonya Rodarte was offered and declined a Medical [employer] for this exam/procedure/test 12/30/2024. Latonya Rodarte had venipuncture blood draw today in office as requested by Dr Lainez. (Patient's provider is in office today.) Venipuncture performed successfully Number of attempts: 1 Site of draw: right arm Excessive Bleeding or Bruising at draw site: No How did the patient tolerate the procedure? well Gold Tube: 1 documented in this encounter [facility] 12-30-2024 History of Present illness Narrative An DITCHING MACHINE ENGINEER ultrasound was performed today. Our ultrasound exams are reported in the system. The complete report, including recommendations, are faxed separately to outside physician offices. If your office utilizes [facility], the ultrasound reports can be found under the imaging tab in Chart Review. Please click on view report under imaging report and not show images. If accessing this information through [employer], it is located under the Other Results tab and is not located in the documents portion of this system documented in this encounter [facility] 11-18-2024 Radiology Diagnostic study note [facility] Imaging Services [address] [place] [address] Transvaginal w/Preg US MR#: [id number] Acct: [id number] Name: LATONYA RODARTE Rep #: [id number] : 1985 F 39 From: Etelvina Dominguez MD PCP: Dr. Imani Helm DO Status: REG CLI Study:Transvaginal w/Preg US Date of Exam: 11/18/24 Exam# [id number] Ordering Dr: Jesse Horvath NP MANAGER OF CORPORATE COMMUNICATIONS-C PROCEDURE: TRANSVAGINAL W/PREG US 11/18/2024 REASON FOR [...] ovaries are not well seen. Reading Location: [id number] CC: FERNANDO Horvath; Dr. 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 November 26, 2024 2:33pm History of miscarriage, currently acute November 26 2:33pm Hx of maternal blood transfusion, currently acute November 26, 2024 2:33pm Hypothyroidism affecting acute November 26, 2024 2:33pm In vitro fertilization acute [facility] 2024 2:33pm acute November 26 2:33pm Spotting [...] December 24 11:40am Anxiety and depression acute ly 2024 11:40am ARM (anorectal malformation) acute December 24, 2024 11:40am 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 December 24, 2024 11:40am History of miscarriage, currently acute December 24 11:40am Hx of maternal blood transfusion, currently acute December 24, 2024 11:40am Hypothyroidism affecting acute December 24, 2024 11:40am In vitro fertilization acute ly 2024 11:40am [...] acute February 9:02am Anxiety and depression acute Se pt2024 9:02am ARM (anorectal malformation) acute February 19, 025 9:02am 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 February 19, 025 9:02am History of miscarriage, currently acute February 9:02am Hx of maternal blood transfusion, currently acute February 19, 025 9:02am Hypothyroidism affecting acute February 19, 025 9:02am In vitro fertilization acute Se pt2024 9:02am acute February 19, 2025 9:02am Spotting affecting in first trimester acute February 19, 025 9:02am Supervision of high-risk acute February 19, 025 9:02am UTI (urinary tract infection) during acute February 19, 025 9:02am Congenital duplication of vagina chronic February 19, 025 9:02am Rectal atresia chronic February 19, 2025 9:02am Recto-vaginal fistula chronic Sep 2024 9:02am Tethered cord chronic February 192024 9:02am [facility] Work Phone: 1(513) 776-358704-29-2025 Evaluation note* Diagnosis Onset Date Resolution Status [...] 11:26am Tethered cord chronic October 24 11:26am [facility] Work Phone: 1(140) 444-492204-29-2025 Evaluation note* Diagnosis Onset Date Resolution Status [...] of back resolved October 30, 2024 9:03am [facility] Work Phone: 1(858) 843-524004-29-2025 Evaluation note* Diagnosis Onset Date Resolution Status [...] 06, 2024 2:01pm Tethered cord chronic November 06 025 2:01pm [facility] Work Phone: 1(951) 865-518104-29-2025 Evaluation note* Diagnosis Onset Date Resolution Status [...] 2024 8:07am Tethered cord chronic November 13, 025 8:07am [facility] Work Phone: 1(516) 815-104104-29-2025 Evaluation note* Diagnosis Onset Date Resolution Status [...] Ju 2024 2:10pm 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 November [...] cord chronic November 18, 2 025 2:10pm [facility] Work Phone: 1(617) 567-288304-29-2025 Evaluation note* Diagnosis Onset Date Resolution Status [...] of back resolved October 24, 025 11:26am VACTERL syndrome deleted October 24, [...] 26, 2024 2:33pm Anxiety and depression acute [facility] 2024 2:33pm ARM (anorectal malformation) acute November 26, 2024 2:33pm 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 November 26, 2024 2:33pm History of miscarriage, currently acute November 26 2:33pm Hx of maternal blood transfusion, currently acute November 26, 2024 2:33pm Hypothyroidism affecting acute November 26, 2024 2:33pm In vitro fertilization acute 2024 2:33pm acute November 26 2:33pm Spotting [...] 2024 2:33pm 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 2:33pm [facility] Work Phone: 1(954) 642-528704-29-2025 Evaluation note* Diagnosis Onset Date Resolution Status [...] 2024 8 :07am In vitro fertilization acute y 2024 8:07am acute November 13, 2024 [...] 26, 2024 2:33pm Anxiety and depression acute [facility] 2024 2:33pm ARM (anorectal malformation) acute November 26, 2024 2:33pm 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 November 26, 2024 2:33pm History of miscarriage, currently acute November 26 2:33pm Hx of maternal blood transfusion, currently acute November 26, 2024 2:33pm Hypothyroidism affecting acute November 26, 2024 2:33pm In vitro fertilization acute 2024 2:33pm acute November 26 2:33pm Spotting [...] 2024 1 1:40am Anxiety and depression acute 2024 11:40am ARM (anorectal malformation) acute December [...] Tethered cord chronic December 24, 025 11:40am [facility] Work Phone: 1(281) 292-492704-29-2025 Evaluation note* Diagnosis Onset Date Resolution Status [...] 2024 11 :26am Rectal atresia chronic October 24 025 11:26am [...] :07am Anxiety and depression acute Ma y , 2025 8:07am 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 November 13, [...] 2024 2 :10pm Anxiety and depression acute [facility] 2024 2:10pm 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 November 18, 2024 2:10pm History of miscarriage, currently acute November 18 2:10pm Hx of maternal blood transfusion, currently acute November 18, 2024 2:10pm Hypothyroidism affecting acute November 18, 2024 2 :10pm In vitro fertilization acute [facility] 2024 2:10pm acute November 18, 2024 2:10pm [...] 26, 2024 2:33pm Anxiety and depression acute [facility] 2024 2:33pm ARM (anorectal malformation) acute November [...] 2024 1 1:40am Anxiety and depression acute 2024 11:40am ARM (anorectal malformation) acute December 24, 2024 11:40am 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 7 weeks . Procedure note: A timeout was performed per protocol. The patient's cecostomy tube was exchanged over a wire. The balloon was inflated and the line flushed.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 From a urological perspective, Latonya also has a reported history of bilateral kidney stones and bilateral VUR s/p bilateral ureteral reimplantation (Allyssa, 2000). She was last seen by Urology in [facility] clinic in November 2021 where she [...] I independently reviewed the following studies from [facility]. Renal Ultrasound 10/09/2024 CHART REVIEW In preparation for the care of this patient, I have independently reviewed the past medical recordsavailable to me at the time of the visit which included both [facility] recordsand outside facilities. I have reviewed [...] Informant: patient HPI 39 yo female from [place], [place] () with ARM (rectovaginal) s/p cutback [...] trouble again in September 2019. Lived in [facility] in [place] was directed to Dr. Beck in January of 2020 due to fertility issues with wanting to get by Dr. Sebastian in [place]. Was having trouble getting catheter in was using a 12F. Was having to lay down to put the catheter in, did not have any is sues with leaking at that time. Revision 05/[address] Marlon Beck in conjunction with gynecology. [place] [employer] [place] couldn't get to left sided fallopian tube [...] complicated by a wound infection readmitted to thehospital with a midline incisional wound infection, stool [...] visit: 12/01/2021 -PFPT: referral for closer to [facility] to help to decrease sit times [...] I reviewed previous information from other specialties/institutions. 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 HENT: [...] found. Assessment 38 year old female from [place], [place] () with ARM (rectovaginal) s/p cutback [...] 2025 Lis Wilson DO, FACS, FASCRS, MS Machine Design Checker [facility] (p) [phone] 35 minutes were spent by the Attending (precepting physician) or Advanced Practice Provider time inthe care of this patient. This includes face to face time and non face to face including the following: Preparing to see the patient (review of tests) Obtaining and/or reviewing separately obtained history Counseling and educating the patient/family/caregiver Ordering medications, tests, or procedures Referring/communicating with other health multi care technician Independently interpreting results and communicating results to [...] complaints--has had Utis. No maternal cardiac anomalies. 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 This is associated with malpresentation and delivery. 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 Pt has a history of tethered cord: d/w pt need for an anesthesia consult at [facility] to assess for regional [...] for obstructive symptoms - Dr. Romero Negron, [facility] HX EXAM UNDER ANESTHESIA 1986 Dr. 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 Jones, [facility] Henson revision, fallopian tube ligation and pelvic CIERA 05/20/2020 Modified cutback anoplasty 1986 Dr. Donald Drew, [facility] Tethered cord repair 1999 [facility] VAGINAL SEPTUM RESECTION 2015 SOCIAL HISTORY: Social [...] CT Abdomen Pelvis with IV Contrast Order: [id number] Addendum Addendum by Provider, [facility] [employer] on 05/24/2020 7:55 PM EST * * *Final Report* * * * * * SEE BOTTOM OF REPORT FOR ADDENDED TEXT * * * DATE OF EXAM: May 24 2020 6:45PM [facility] 0530 - CT ABD/PEL W IVCON / [...] incision. Lower thorax: Minimal left basilar atelectasis. Graphic Production Artist (topogram) images: No additional findings. IMPRESSION: NEW [...] on 05/24/2020 7:28 PM via verbal communication. Business Information Consultant: NATACHA Transcribe Date/Time: May 24 2020 7:52P [...] Gynecology 10/09/2024 11:30 AM documented in this encounterMercy Hospital04-24-2025 Instructions* Patient Instructions* Jesse Edwards CPNP [...] c- section for management of your Henson [employer]: vitality Educational Handouts/Orders Needed: none How to Reach CCPR General Questions: Please use [employer] or call [phone]. We will respond to BringIt messages and voicemails by the end of the next business day. Urgent Concerns: Weekdays, 8 a.m. to 4:30 p.m. (EST), call [phone]. After hours and weekends, call [phone] and press 0 when prompted to reach our on-call team. SCHEDULING BLOCK documented in this [facility] [id number] Note PROCEDURE: US KIDNEY REASON FOR EXAM: [...] calcification. No hydronephrosis. No abnormal pelvic free fluid.[facility] [id number] NotePROCEDURE: US KIDNEY REASON FOR EXAM: Hx: [...] MD on 10/09/2024 8:51 AM Post void residualEcu Health Roanoke-Chowan HospitalionUniversity Hospitals [facility]10-29-2024 Telephone encounter Note* Telephone Encounter - Bernadette Morgan RN - 04/15/2024 2:29 PM EDT Images from the original note were not included. Fax received from [employer] stating they do not carry the Entra Ren Darlington Bags, but do have the Mck[place]on Darlington Bags. Also stated they do not have graduated cylinders. Will check with patient on this and fax back to [employer] at [phone] [facility]10-29-[facility] Miscellaneous Notes* Telephone Encounter - Bernadette Morgan RN - 04/15/2024 2:29 PM EDT Images from the original note were not included. Fax received from [employer] stating they do not carry the Entra Ren Darlington Bags, but do have the [place]ck[place] Darlington Bags. Also stated they do not have graduated cylinders. Will check with patient on this and fax back to [employer] at [phone] * Telephone Encounter - Lazara Brice RN [...] was measured at 6.5 cm. A new 12-Citizen Of [place], 6 cm in length mini Alex button [...] by 2 different methods. documented in this encounterNationUniversity Hospitals Geauga Medical Center10-27-2024 Telephone encounter Note* Telephone Encounter - Lazara [...] was measured at 6.5 cm. A new 12-Citizen Of [place], 6 cm in length mini Alex button [...] 6.5 cm length by 2 different methods. [facility]10-27-[facility] History of Present illness Narrative* Lazara Brice RN - 04/13/2024 10:24 AM EDT Images from the original note were not included. New DME orders faxed to [employer]. Confirmation received. documented in this [facility]10-24-2024 Procedure note* Radiology Note - Tim Gonzalez - 04/10/2024 2:10 PM EDT Patient presents to IR with cecostomy in [place]. Dr. Jo to remove that tube. [facility]10-24-[facility] Miscellaneous Notes* Radiology Note - Tim Gonzalez - 04/10/2024 2:10 PM EDT Patient presents to IR with cecostomy in [place]. Dr. Jo to remove that tube. documented in this encounterMercy Hospital10-24-2024 History of Present illness Narrative* Andres Fitzgerald APN - 04/10/2024 10:00 AM EDT Images from the original note were not included. Informant: Pardeep Nelson is a 38 year old female from [place], [place] () with ARM (rectovaginal) s/p cutback anoplasty and henson who was referred to us for help with: Anorectal Malformation (ARM) anatomy evaluation and Leaking henson and bowel management. Spine/Sacrum: History of tethered cord that was repaired. 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 Had the Henson [place] [address] Gutiérerz, unknown if a plication was placed. After [...] trouble again in September 2019. Lived in [facility] in [place] was directed to Dr. Beck in January of 2020 due to fertility issues with wanting to get by Dr. Sebastian in [place]. Was having trouble getting catheter in was using a 12F. Was having to lay down to put the catheter in, did not have any is sues with leaking at that time. Revision 05/[address] Marlon Beck in conjunction with gynecology. [place] [employer] couldn't get to left sided fallopian tube [...] complicated by a wound infection readmitted to thehospital with a midline incisional wound infection, stool [...] visit: 12/01/2021 -PFPT: referral for closer to [facility] to help to decrease sit times -continue 450 mL NS + 30 mL glycerin + add castile soap 1 packet 9 grams to help decrease sit times -follow up in 1 month with [facility] to see if sit times improved Patient [...] I independently reviewed the following studies from [facility]. Xray abdomen supine CHART REVIEW In preparation for the care of this patient, I have independently reviewed the past medical recordsavailable to me at the time of the visit which included both [facility] recordsand outside facilities. [...] is a 38 year old female from [place], [place] () with ARM (rectovaginal) s/p cutback [...] with questions or concerns documented in this encounterNatCorey Hospital's [id number] Instructions* Patient Instructions* Deni Paul RN - [...] sooner with questions or concerns Homecare Company: [employer] [facility] Items Needed: Darlington Bags, tube Adaptor (depending on what IR places today), Syringes, split gauze Educational Handouts/Orders Needed: will need spare Mini Alex ordered once we have new size from IR today How to Reach CCPR General Questions: Please use [employer] [facility] BringIt or call [phone]. We will respond to BringIt messages and voicemails by the end of the next business day. Urgent Concerns: Weekdays, 8 a.m. to 4:30 p.m. (EST), call [phone]. After hours and weekends, call [phone] and press 0 when prompted to reach our on-call team. SCHEDULING BLOCK CCPR Follow-up/Scheduling Information INSURANCE In Network LTFU TRACK Is patient on LTFU Track:Yes LTFU Track for:BMP BMP Date: 11/2020 LEVEL: 1 REASON FOR VISIT Shelter Follow-up for: BMP [facility] Annual TYPE OF VISIT Clinic Visit SCHEDULE NEXT APPOINTMENT When should patient be scheduled: 6 months DIAGNOSIS ARM COLORECTAL PROVIDER Gashaley COLORECTAL PRE-VISIT TESTING ABD X-ray CONSULTS Consults with: Urology, Other (see comment) IR for mini alex exchange Urology Provider: RODRI Urology Pre-Visit Testing: CHARLES Urology tests that need Sedation: None SURGERY Is surgery needed? No documented in this encounterMercy Hospital10-23-2024 Telephone encounter Note* Telephone Encounter - Marixa Hernandez - 04/09/2024 8:10 AM EDT Pt [place] insurance is active and INN, blocks updated [facility]10-23-2024 Miscellaneous Notes* Telephone Encounter - Marixa Hernandez - 04/09/2024 8:10 AM EDT Pt [place] insurance is active and INN, blocks updated documented in this encounterMercy Hospital10-22-2024 Telephone encounter Note* Telephone Encounter - [...] She did upload her insurance cards in BringIt, so will have those processed and let her know if there are any issues. [facility]10-22-2024 Miscellaneous Notes* Telephone Encounter - Bernadette [...] She did upload her insurance cards in BringIt, so will have those processed and let [...] tube change on at 1:30. Will have JEWELRY SALES COORDINATOR update order to reflect the correct way [...] the balloon was inflated. RN to update JEWELRY SALES COORDINATOR on situation and call IR to see about getting scheduled. Will call patient back once there's an update. Last changed in October From: [employer] <[email or web address]> Sent: Monday, April 08, 2024 9:55 AM To: CCPROnCall <[email or web address]> Subject: Message from Unknown sender ([phone]) Patient calling in letting us know the balloon to her mini-alex popped and her tube came out. From: Latonya Rodarte <[email or web address]> Sent: Monday, April 08, 2024 10:10 AM To: [facility] <[email or web address]> Subject: Mariama villagomez tube broke Helmary, could I have someone call me back today? My tube just broke and fell out of my stomach. My name is Latonya Rodarte date of 1985 If I could have someone call me back [phone] documented in this encounterNatRiverview Health Institute10-22-2024 Telephone encounter Note* Telephone Encounter - Bernadette [...] with: None SURGERY Is surgery needed? No [facility]10-22-20[facility] Telephone encounter Note* Telephone Encounter - Bernadette Morgan RN - 04/08/2024 11:44 AM EDT RN called Tete in IR and she is able to get patient in for a tube change on at 1:30. Will have JEWELRY SALES COORDINATOR update order to reflect the correct way [...] to check with team and call patientback. [facility]'s [id number] Telephone encounter Note* Telephone Encounter - Bernadette [...] the balloon was inflated. RN to update JEWELRY SALES COORDINATOR on situation and call IR to see about getting scheduled. Will call patient back once there's an update. Last changed in October From: [employer] Sent: Monday, April 08, 2024 9:55 AM To: CCPROnCall Subject: Message from Unknown sender ([phone]) Patient calling in letting us know the [...] I could have someone call me back [phone] [facility]'s [id number] NoteHNO ID: [id number] Author: Mackenzie Duran MD Service: ? Author [...] MD PGY 6 Reproductive Endocrinology and Infertility FellowMadison Health08-23-2023 History of Present illness Narrative* Mackenzie Duran [...] Endocrinology and Infertility Fellow documented in this encounterMer[facility] St[facility]08-07-2023 NoteHNO ID: [id number] Author: Freda Gerard RN Service: ? Author [...] Freda Gerard RN January 22, 2023 1:42 PMCThe Christ Hospital08-07-2023 History of Present illness Narrative* Freda [...] 22, 2023 1:42 PM documented in this encounterMercy Health St. [facility]07-31-2023 NoteHNO ID: [id number] Author: Freda Gerard RN Service: ? Author Type: ? Type: Progress Notes Filed: 01/15/2023 4:34 PM Note Text: Called patient with plan, take letrozole the next 4 days and return to clinic on 01/22. Patient states understanding, no further questions at this time. Freda Gerard RNMadison Health07-31-2023 History of Present illness Narrative* Freda Gerard [...] nursing. Aydee More RN documented in this encounterMercy Health St. [facility]07-31-2023 NoteHNO ID: [id number] Author: Aydee More RN Service: ? Author [...] stay to meet with nursing. Aydee More RNMadison Health07-28-2023 Miscellaneous Notes* Telephone Encounter - Freda Gerard [...] speaking with nurse freda documented in this encounterMercy Health St. [facility]06-29-2023 Miscellaneous Notes* Telephone Encounter - Freda Gerard RN - 12/14/2022 2:44 PM EDT Called patient to advise her we have sent letrozole to the pharmacy she requested. Patient states understanding. Freda Gerard RN December 14, 2022 2:45 PM * Telephone Encounter - Ramila Dias - 12/14/2022 12:58 PM EDT Pt would like her prescription sent to the right [facility] [place] ,speaking with Nurse Freda documented in this encounterMercy Health St. [facility]06-27-2023 Miscellaneous Notes* Addendum Note - Adri Baires APRN.CNP - 12/12/2022 3:28 PM EDTAddended by: ADRI BAIRES on: 12/12/2022 03:28 PM Modules accepted: Orders * Addendum Note - Freda Gearrd RN - 12/12/2022 3:22 PM EDTAddended by: [...] , please follow up documented in this encounterMercy Health St. [facility]06-08-2023 NoteHNO ID: [id number] Author: Freda Gerard RN Service: ? Author [...] RN November 23, 2022 3:11 [facility]06-08-2023 History of Present illness Narrative* Freda [...] nursing. Aydee More RN documented in this encounterMercy Health St. [facility]06-08-2023 NoteHNO ID: [id number] Author: Aydee More RN Service: ? Author [...] stay to meet with nursing. Aydee More RNMadison Health06-07-2023 NoteHNO ID: [id number] Author: Freda Gerard RN Service: ? Author [...] RN November 22, 2022 2:01 [facility]06-07-2023 History of Present illness Narrative* Freda [...] 22, 2022 2:01 PM documented in this encounterMercy Health St. [facility]06-06-2023 Miscellaneous Notes* Telephone Encounter - Freda Gerard RN - 11/21/2022 3:22 PM EDT Patient has appointment scheduled tomorrow at 7:45. Freda Gerard RN November 21, 2022 3:23 PM * Telephone Encounter - Felicia Ricketts Pss - 11/21/2022 11:01 AM EDT Patient called did not see appt for tomorrow, scheduled monitoring appt for her. documented in this encounterMercy Health St. [facility]06-01-2023 History of Present illness Narrative* Freda Gerard RN - 11/16/2022 2:16 PM EDT Called patient with plan per flowsheet, start letrozole, start FSH day 5, return to clinic 11/22. Patient states understanding, no further questions at this time. Detailed MyChart message sent, requestsent for appointment 11/22 at 0700 Freda Gerard RN November 16, 2022 2:21 PM documented in this encounterMercy Health St. [facility]05-31-2023 Miscellaneous Notes* Addendum Note - Wil Luke MD - 11/15/2022 3:22 PM EDTAddended by: WIL LUKE on: 11/15/2022 03:22 PM Modules accepted: Orders documented in this encounterMer[facility]05-31-2023 History of Present illness Narrative* Freda [...] 15, 2022 3:50 PM documented in this encounterMer[facility]05-17-2023 Miscellaneous Notes* Telephone Encounter - Freda [...] speaking with nurse freda documented in this encounterMer[facility] St. [facility]05-02-2023 Miscellaneous Notes* Telephone Encounter - Freda Gerard RN - 10/17/2022 2:32 PM EDT Returned phone call. Patient states her [facility] pharmacy does not have Clomid and is [...] are on back order documented in this encounterMer[facility]03-23-2023 History of Present illness Narrative* Freda [...] nursing. Aydee More RN documented in this encounterMer[facility] Health St. [facility]03-20-2023 History of Present illness Narrative* Freda [...] 04, 2022 2:24 PM documented in this encounterMer[facility]03-14-2023 History of Present illness Narrative* Freda [...] 29, 2022 7:57 AM documented in this encounterMer[facility]03-13-2023 Miscellaneous Notes* Telephone Encounter - Freda Gerard RN - 08/28/2022 4:47 PM EDT Returned phone call. Period started today, she will come in to baseline tomorrow at 0715. She called [facility] pharmacy today, medication will be delivered tomorrow or Sunday. Request sent for appointment tomorrow. Freda Gerard RN August 28, 2022 4:49 PM * Telephone Encounter - Felicia Ricketts Pss - 08/28/2022 10:07 AM EDT Patient states cycle should start tomorrow and she has not heard from pharmacy, please call patient. documented in this encounterMer[facility] St[facility]03-13-2023 Miscellaneous Notes* Telephone Encounter - Freda [...] Speaking with Nurse Freda documented in this encounterMer[facility] St. [facility]03-08-2023 Miscellaneous Notes* Telephone Encounter - Ginny [...] with full doses. Will order medications to [facility] pharmacy, sent chart to financial for clearance. She will be a natural start, will schedule once patient pays. Freda Gerard RN August 23, 2022 2:42 PM * Telephone Encounter - Kasia Lund Pss - 08/22/2022 3:51 PM EST Pt wants to know if she can order her injections documented in this encounterMer[facility]03-02-2023 History of Present illness Narrative* Khang Mercado - 08/17/2022 10:02 AM EST IVF freeze all cycle. No embryo was frozen. Khang Mercado August 17, 2022 10:02 AM documented in this encounterMer[facility] St. [facility]03-02-2023 Miscellaneous Notes* Telephone Encounter - Khang Mercado - 08/17/2022 8:43 AM EST Patient called by lab to give update on embryo. Let patient know that her one embryo has stop developing. Nothing was frozen from this cycle. Khang Mercado August 17, 2022 8:43 AM documented in this encounterMer[facility]03-01-2023 Miscellaneous Notes* Telephone Encounter - Khang [...] 15, 2022 8:44 AM documented in this encounterMer[facility]02-24-2023 History of Present illness Narrative* MAXIMO Smyth Tech - 08/11/2022 12:33 PM EST Retrieval procedure performed. 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 Negrita Espinosa Viamedia Tech documented in this encounterMercy Health St. [facility]02-24-2023 Note* [facility] ULTRASOUND GUIDED PROCEDURE (08/11/2022 4:44 AM EST) Anatomical Region Laterality Modality Other 08/11/2022 4:44 AM EST Narrative 08/11/2022 12:22 PM EST Indication Retrieval Impression Follicles noted Recommendations Continue with retrieval History General History Other: known didelphic uterus Method Transvaginal ultrasound examination Performed By: Read By: Wil Luke M.D. Mackenzie Duran MD [facility]02-22-2023 History of Present illness Narrative* Freda Gerard RN - 08/09/2022 2:01 PM EST Called patient with trigger plan. Patient will trigger tonight at 11PM, labs tomorrow, retrieval Sunday. Patient states understanding, will come in at 9:30 for a scan before retrieval. Appointment request sent for labs tomorrow. No further questions at this time, detailed MyChart message sent. Freda Gerard RN August 09, [...] 09, 2022 7:52 AM documented in this encounterMer[facility]. [facility]02-21-2023 History of Present illness Narrative* Essence [...] IVF cycle per physician, see flowsheet fordetails. Aegis Mobilityhart message sent. Instructions given. Patient denies any questions or concerns. Message sent to scheduling pool for next appt. Essence Adkins RN August 08, 2022 1:21 PM documented in this encounterMercy Health St. [facility]02-20-2023 Miscellaneous Notes* Addendum Note - Ysabel Scott MD - 08/07/2022 3:36 PM ESTAddended by: YSABEL SCOTT on: 08/07/2022 03:36 PM Modules accepted: Orders * Addendum Note - Freda Gerard RN - 08/07/2022 1:55 PM ESTAddended by: FREDA GERARD RN on: 08/07/2022 01:55 PM Modules accepted: Orders documented in this encounterMercy Health St. [facility]02-20-2023 History of Present illness Narrative* Freda [...] 07, 2022 1:49 PM documented in this encounterMer[facility]. [facility]02-20-2023 History of Present illness Narrative* Aiyana Harman APRN.CNP - 08/07/2022 7:28 AM EST orders filed for labs today. Aiyana Harman APRN.CNP August 07, 2022 7:30 AM documented in this encounterMer[facility] Health St[facility]02-16-2023 Miscellaneous Notes* Telephone Encounter - Freda [...] with mondays appointment , speaking with nurse cordero documented in this encounterMercy Health St. [facility]02-16-2023 History of Present illness Narrative* Aydee [...] nursing. Aydee More RN documented in this encounterMer[facility] Health St. [facility]02-15-2023 History of Present illness Narrative* Freda [...] 02, 2022 1:57 PM documented in this encounterMer[facility]. [facility]02-07-2023 History of Present illness Narrative* Freda [...] 25, 2022 1:26 PM documented in this encounterMer[facility]. [facility]02-06-2023 Miscellaneous Notes* Telephone Encounter - Freda [...] Speaking with Nurse Freda documented in this encounterMercy Health St. [facility]01-19-2023 History of Present illness Narrative* Freda [...] nursing. Aydee More RN documented in this encounterMercy Health St. [facility]12-28-2022 Miscellaneous Notes* Telephone Encounter - Freda [...] 14, 2022 2:38 PM documented in this encounterMer[facility] St. [facility]12-28-2022 Miscellaneous Notes* Telephone Encounter - Freda Gerard RN - 06/14/2022 2:00 PM EST Returned phone call, left voicemail message for patient to call back at her convenience. Freda Gerard RN June 14, 2022 2:01 PM documented in this encounterMercy Health St. [facility]12-19-2022 Consult note* Soren Sebastian MD - 06/05/2022 1:11 PM EST VIRTUAL VISIT PROGRESS NOTE This is a virtual visit using BringIt video visit. It required patient-provider interaction for [...] after surgery Discussed to outcome of our HULL BUILDER/VERENICE portion of the surgery: 1 tube excised. [...] after surgery Discussed to outcome of our HULL BUILDER/VERENICE portion of the surgery: 1 tube excised. [...] after surgery *Discussed to outcome of our HULL BUILDER/VERENICE portion of the surgery: 1 tube excised. 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 [...] after surgery Discussed to outcome of our HULL BUILDER/VERENICE portion of the surgery: 1 tube excised. [...] after surgery *Discussed to outcome of our HULL BUILDER/VERENICE portion of the surgery: 1 tube excised. [...] Contreras: Discuss medical insurance benefits and likely [id number] costs of IVF. IVF nurse coordinator: Schedule [...] Contreras: Discuss medical insurance benefits and likely [id number] costs of IVF. IVF nurse coordinator: Schedule [...] Notations from previous visit: Records release from [facility] Likely laparoscopy bilateral salpingectomy prior to IVF I spent a total of 28 minutes on the date of the service which included preparing to see the patient, [id number] patient care, completing clinical documentation, obtaining and/or reviewing separately obtained history, counseling and educating the patient/family/caregiver, ordering medications, darcy ts, or procedures, communicating with other HCPs (not separately reported), independently interpreting results (not separately reported), and communicating results to the patient/family/caregiver. Soren Sebastian MD June 05, 2022 1:12 PM documented in this encounterMercy Health St. [facility]11-21-2022 Miscellaneous Notes* Telephone Encounter - Freda [...] her IVF cycle medications documented in this encounterMercy Health St. [facility]11-15-2022 Miscellaneous Notes* Telephone Encounter - Freda [...] bleeding, still having bleeding. documented in this encounterMercy Health St. [facility]11-14-2022 History of Present illness Narrative* Freda [...] 01, 2022 8:06 AM documented in this encounterMercy Health St. [facility]11-07-2022 Instructions* Patient Instructions* Freda Gerard RN - 04/24/2022 8:37 AM EST documented in this encounterMercy Health St. [facility]11-07-2022 History of Present illness Narrative* Freda [...] 24, 2022 1:59 PM documented in this [facility]11-04-2022 Miscellaneous Notes* Telephone Encounter - Kaila Smith RN - 04/21/2022 4:22 PM EDT Called pt by listed phone number. Pt CD1 today. Scheduled for natural baseline appointment for Sunday04/24/22 at 0715. Kaila Smith RN April 21, 2022 4:23 PM * Telephone Encounter - Felicia Ricketts Pss - 04/21/2022 2:34 PM EDT Patient is doing a natural cycle. documented in this encounterMercy Health St. [facility]10-25-2022 Miscellaneous Notes* Telephone Encounter - Freda [...] call to follow up documented in this [facility]10-24-2022 Miscellaneous Notes* Telephone Encounter - Freda Gerard RN - 04/10/2022 10:54 AM EDT Returned phone call. Left voicemail to call back. Freda Gerard RN April 10, 2022 10:55 AM * Telephone Encounter - Kasia Lund Pss - 04/10/2022 9:19 AM EDT Freda villa has ques on her meds documented in this encounterMercy Health St. [facility]09-27-2022 Miscellaneous Notes* Telephone Encounter - Freda Gerard RN - 03/14/2022 1:43 PM EDT Called patient, advised her to take her estrace now, and the other 2 at bedtime. Patient states understanding. Freda Gerard RN March 14, 2022 1:44 PM * Telephone Encounter - Felicia Ricketts [facility] - 03/14/2022 12:48 PM EDT Should she take all of them tonight, needs guidance. documented in this encounterMercy Health St. [facility]09-15-2022 Procedure note* Ysabel Scott MD - 03/02/2022 4:19 PM EDT [facility]I VERENICE TRANSFER PROCEDURE NOTE Date: 03/02/2022 Primary Proceduralist: Soren Sebastian MD Legal Researcher(s): Ysabel Scott MD Informed Consent: Consents and Labels Consent Signed: Informed Consent obtained and on the chart Labels Verified With Patient: Yes Indications: Latonya Rodarte, is a 36 year old female here today for Embryo Transfer. [place] Protocol: UNIVERSAL PROTOCOL / SAFETY CHECKLIST Procedure [...] 2022 TIME: 4:19 PM documented in this encounterMercy Health St. [facility]09-15-2022 History of Present illness Narrative* Ruth Ann Ernst - 03/02/2022 2:01 PM EDT Embryo Transfer procedure performed. Detailed notes can be found in the paper chart in the [facility] - DITCHING MACHINE ENGINEER Office. Ruth Ann Ernst documented in this encounterMercy Health St. [facility]09-15-2022 Instructions* Patient Instructions* Lyn Mckay RN - 03/02/2022 1:57 PM EDT POST EMBRYO TRANSFER INSTRUCTIONS You will need to have your blood drawn for Quantitative HCG on 03/16/22 at [place]. You can expectto be called the afternoon of your blood draw with your test results. If for any reason that date or location is changed, please call [phone] to inform us. Continue your current medications [...] If you have any questions, please call [phone]. documented in this encounterMercy Health St. [facility]09-09-2022 History of Present illness Narrative* Anahy Velarde MD - 02/24/2022 1:24 PM EDT Called patient with plan for transfer. Went over medications and timing. Detailed Tourvia.met message sent. Patient has no questions. Freda [...] nursing. Aydee More RN documented in this encounterMercy Health St. [facility]09-07-2022 History of Present illness Narrative* Freda [...] 22, 2022 7:43 AM documented in this encounterMercy Health St. [facility]08-29-2022 Miscellaneous Notes* Telephone Encounter - Freda Gerard RN - 02/13/2022 4:44 PM EDT Called patient, she started estrace on 02/10. Lining check scheduled for 02/22. Thaw plan turned in. Request sent for appointment on 02/22. Freda Gerard RN * Telephone Encounter - Felicia Ricketts Pss - 02/10/2022 3:35 PM EDT Calling regarding frozen embryo transfer. documented in this encounterMercy Health St. [facility]08-29-2022 Miscellaneous Notes* Telephone Encounter - Paris Villarreal - 02/13/2022 2:27 PM EDT Pt reporting cycle start 02/10 for FET documented in this encounterMer[facility]08-11-2022 History of Present illness Narrative* Freda Gerard [...] 26, 2022 2:14 PM documented in this encounterMer[facility]. [facility]08-11-2022 Miscellaneous Notes* Telephone Encounter - Paris Villarreal - 01/26/2022 11:09 AM EDT Pt dropped off FET thaw plan this morning and just wants to double check that the nurses got it documented in this encounterMer[facility]. [facility]07-11-2022 Miscellaneous Notes* Telephone Encounter - Jen Cruz - 12/26/2021 2:33 PM EDT Unable to reach patient by phone, sent MyChart message with instructions. Medicaition orders pended. Lining check orders pended. Checklist updated. Jen Cruz December 26, 2021 2:33 PM * Telephone Encounter - Paris Villarreal - 12/26/2021 10:16 AM EDT Pt had hysteroscopy last week and now needs meds ordered for FET. Pt says she usually talks to Freda documented in this encounterMer[facility]. [facility]07-06-2022 Procedure note* Wil Luke MD - [...] team. Wil Luke MD documented in this encounterMercy Health St. [facility]07-06-2022 History of Present illness Narrative* Birgit [...] for FET Test: Negative documented in this encounterMercy Health St. [facility]07-05-2022 Miscellaneous Notes* Telephone Encounter - Freda [...] follow up with patient. documented in this encounterMercy Health St. [facility]06-15-2022 Miscellaneous Notes* Telephone Encounter - Freda [...] discuss setting up fet documented in this encounterMercy Health St. [facility]05-01-2022 History of Present illness Narrative* Geno Fatima - 10/16/2021 9:09 AM EDT IVF freeze all cycle. Geno Fatima October 16, 2021 9:09 AM documented in this encounterMercy Health St. [facility]04-25-2022 History of Present illness Narrative* Sasha Stoddard - 10/10/2021 12:39 PM EDT Retrieval procedure performed. 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 Sasha Stoddard documented in this encounterMercy Health St. [facility]04-24-2022 History of Present illness Narrative* Katrina Mcclain RN - 10/09/2021 11:37 AM EDT Patient had post trigger labs done today. Will be reviewed by EGR. Plan for retrieval tomorrow. Katrina Mcclain RN October 09, 2021 11:43 AM documented in this [facility]04-23-2022 History of Present illness Narrative* Katrina Mcclain [...] 08, 2021 1:54 PM documented in this encounterMer[facility]04-22-2022 Miscellaneous Notes* Telephone Encounter - Freda [...] uses [facility] for medication. documented in this encounterMer[facility]04-22-2022 History of Present illness Narrative* Aiyana Harman APRN.CNP - 10/07/2021 7:31 AM EDT orders filed for e2 for 10-08-21. Aiyana Harman APRN.CNP October 07, 2021 7:32 AM documented in this encounterMer[facility]04-21-2022 History of Present illness Narrative* Freda [...] 06, 2021 1:50 PM documented in this encounterMer[facility]04-21-2022 History of Present illness Narrative* Aiyana Harman APRN.CNP - 10/06/2021 6:54 AM EDT orders filed for Prog and US exam. Aiyana Harman APRN.CNP October 06, 2021 6:56 AM documented in this encounterMer[facility]04-20-2022 History of Present illness Narrative* Freda [...] 05, 2021 1:37 PM documented in this encounterMer[facility] Health [facility]04-17-2022 History of Present illness Narrative* Aydee More RN - 10/02/2021 10:26 AM EDT The patient is here today for follicular ultrasound and blood work. The patient reports no problemsor complaints. Ultrasound and blood will be reviewed by the physician, the flow sheet will be updated and instructions will be communicated to the patient. Pt did not stay to meet with nursing. Aydee Derik RN Call to patient at cell number listed Informed pt to continue all same dose of medications and start ganirelix tomorrow morning. Pt will continue same time richa morning before 8 am, see cycle flow sheet. RTC 10/05/21 at 7:15 am. Pt verbalized understanding Aydee More RN October 02, 2021 11:37 AM documented in this encounterMer[facility] Health [facility]. [facility]04-13-2022 History of Present illness Narrative* Freda [...] and return to clinic on Sunday. Sent BringIt message, requested appointment for Sunday around 7:15 Freda Gerard RN September 28, 2021 1:57 PM documented in this encounterMer[facility] Health [facility]. [facility]04-11-2022 History of Present illness Narrative* Freda [...] 26, 2021 1:31 PM documented in this encounterMer[facility]04-08-2022 Miscellaneous Notes* Telephone Encounter - Megan Cabrera - 09/23/2021 8:12 AM EDT Patient paid me for $750 for ultrasounds and $150 for nurse visit * Telephone Encounter - Felicia Ricketts Pss - 09/22/2021 10:28 AM EDT Please follow up with patient. documented in this encounterMer[facility]04-07-2022 History of Present illness Narrative* Aiyana Harman APRN.CNP - 09/22/2021 7:03 AM EDT orders filed for ivf monitoring. Aiyana Harman APRN.CNP September 22, 2021 7:03 AM documented in [facility]* Diagnosis Female infertility- Primary Female infertility of unspecified origin documented in this encounter [facility]* Diagnosis Female infertility- Primary Female infertility of unspecified origin documented in this encounter [facility]* Diagnosis Female infertility Female infertility of unspecified origin documented in this encounter [facility]* Diagnosis Female infertility- Primary Female infertility of unspecified origin documented in this encounter [facility]* Diagnosis Female infertility Female infertility of unspecified origin documented in this encounter [facility]* Diagnosis Female infertility- Primary Female infertility of unspecified origin documented in this encounter [facility]* Diagnosis Female infertility Female infertility of unspecified origin documented in this encounter [facility]* Diagnosis Encounter for fertility testing- Primary Fertility testing Female infertility Female infertility of unspecified origin documented in this encounter [facility]* Diagnosis Encounter for fertility testing Fertility testing Female infertility Female infertility of unspecified origin documented in this encounter [facility]* Diagnosis Female infertility- Primary Female infertility of unspecified origin documented in this encounter [facility]* Diagnosis Encounter for fertility testing- Primary Fertility testing documented in this encounter [facility]* Diagnosis Fertility testing- Primary Pre-procedural laboratory examination documented in this encounter [facility]* Diagnosis Primary female infertility- Primary Female infertility of unspecified origin documented in this encounter [facility]* Diagnosis Female infertility- Primary Female infertility of unspecified origin documented in this encounter [facility]* Diagnosis Primary female infertility Female infertility of unspecified origin documented in this encounter [facility]* Diagnosis Female infertility- Primary Female infertility of unspecified origin documented in this encounter [facility]* Diagnosis Primary female infertility- Primary Female infertility of unspecified origin documented in this encounter [facility] note* Diagnosis examination or test, unconfirmed- Primary Infertility, female Female infertility of unspecified origin documented in this encounter [facility]* Diagnosis Encounter for fertility testing- Primary Fertility testing documented in this encounter [facility] note* Diagnosis Female infertility- Primary Female infertility of unspecified origin documented in this encounter [facility]* Diagnosis Female infertility- Primary Female infertility of unspecified origin Encounter for fertility testing Fertility testing documented in this encounter [facility] note* Diagnosis Female infertility- Primary Female infertility of unspecified origin Encounter for fertility testing Fertility testing documented in this encounter [facility] note* Diagnosis 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 Other ovarian failure Encounter for fertility planning Other specified procreative management Female pelvic peritoneal adhesions Pelvic peritoneal adhesions, female (postoperative) (postinfection) documented in this encounter [facility] note* Diagnosis Female infertility- Primary Female infertility of unspecified origin documented in this encounter [facility] Diagnosis Encounter for fertility testing Fertility testing Female infertility Female infertility of unspecified origin documented in this encounter [facility] note* Diagnosis Female infertility Female infertility of unspecified origin documented in this encounter [facility] Diagnosis Female infertility- Primary Female infertility of unspecified origin documented in this encounter [facility]* Diagnosis Female infertility Female infertility of unspecified origin documented in this encounter [facility]* Diagnosis Female infertility Female infertility of unspecified origin documented in this encounter [facility] note* Diagnosis Female infertility- Primary Female infertility of unspecified origin documented in this encounter [facility] note* Diagnosis Female infertility Female infertility of unspecified origin documented in this encounter [facility]* Diagnosis Female infertility Female infertility of unspecified origin [facility] in [facility] Diagnosis Female infertility Female infertility of unspecified origin documented in this [facility] Diagnosis Female infertility- Primary Female infertility of unspecified origin documented in this encounter [facility]* Diagnosis Female infertility- Primary Female infertility of unspecified origin documented in this encounter [facility]* Diagnosis Female infertility Female infertility of unspecified origin documented in this encounter [facility]* Diagnosis Female infertility- Primary Female infertility of unspecified origin Encounter for fertility testing Fertility testing documented in this encounter [facility]* Diagnosis Female infertility- Primary Female infertility of unspecified origin documented in this [facility] Diagnosis Female infertility- Primary Female infertility of unspecified origin Encounter for fertility testing Fertility testing documented in this encounter [facility] note* Diagnosis Encounter for fertility testing Fertility testing documented in this encounter [facility] note* Diagnosis Treatment plan provided- Primary documented in this encounter [facility] note* Diagnosis Encounter for fertility testing Fertility testing documented in this encounter [facility] note* Diagnosis Encounter for fertility testing Fertility testing documented in this encounter [facility] note* Diagnosis 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 documented in this encounter [facility] Diagnosis 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 documented in this encounter [facility]* Diagnosis 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 Other constipation History of antegrade continence enema procedure documented in this encounter [facility]* Diagnosis 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 Other constipation History of antegrade continence enema procedure documented in this encounter [facility]* Diagnosis 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 documented in this encounter [facility] Diagnosis 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 documented in this encounter [facility]* Diagnosis 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 Incomplete defecation Incomplete emptying of bladder Incomplete bladder emptying documented in this [facility]* Diagnosis 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 Other constipation History of antegrade continence enema procedure documented in this encounter [facility] Diagnosis Encounter for anatomic survey- Primary Advanced maternal age, 1st , first trimester Encounter for screening for risk of pre-term labor 18 weeks gestation of state, incidental AMA (advanced maternal age) multigravida 35+, second trimester Encounter for ultrasound to assess interval growth of fetus Encounter for follow-up ultrasound of anatomy documented [facility] this [facility] Diagnosis 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 Recurrent UTI Urinary tract infection, site not specified 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 documented in this [facility] Diagnosis Encounter for follow-up ultrasound of anatomy- Primary Encounter for ultrasound to assess interval growth of fetus 22 weeks gestation of state, incidental AMA (advanced maternal age) multigravida 35+, second trimester documented in this [facility] Diagnosis resulting from in vitro fertilization, antepartum- Primary [facility] Diagnosis cardiac anomaly complicating , antepartum, single gestation- Primary resulting from in vitro fertilization, antepartum 24 weeks gestation of state, incidental documented in this encounter [facility] note* Diagnosis Need for Tdap vaccination- Primary Need for prophylactic vaccination with combined sealswgkgv-pvaugcd-vcsvdrgrk (DTP) vaccine Multigravida of advanced maternal age in second trimester Encounter for supervision of normal first in second trimester Supervision of normal first 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 Lane Henderson MD Age/Sex: 39/F [place] 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 Driver Required: No Is patient in pain?: No Allergies ampicillin Allergy (Verified 10/30/24 09:05) Hives Medications ?Medication ?Instructions ?Recorded ?Confirmed ?Type Lactobacillus 25 billion cap PO 10/14/24 10/30/24 His tory cell-Bifido 25 billion fpht-JKH-bsqzj capsule aspirin 81 mg tablet,delayed 81 mg [...] 3-4 times per week duration: 15-30 minutes/day sotero/confucianist: None seatbelt use: always do you feel safe at home: Yes 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 History 2 Elective abortions Hx Para 0 [...] : Status: Acute Comment: , WES 05/27/25, 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 Lane Henderson MD Age/Sex: 39/F [place] [facility] [place]: Signed Intake Vital Signs 11/18/24 14:11 01/20/25 15:41 02/19/25 09:08 Height 5 ft 4 in 5 ft 4 in 5 ft 4 in Weight: 177 lb 3 oz BMI 30.4 BP 135/77 H Intake Visit Reasons: 26 WK OB *DOC ONLY Shuttle Bus Driver Required: No Is patient in pain?: No Allergies ampicillin Allergy (Verified 02/19/25 09:10) Hives Medications ?Medication ?Instructions ?Recorded ?Confirmed ?Type Lactobacillus 25 billion cap PO 10/14/24 02/19/25 His tory cell-Bifido 25 billion nghj-WKH-dploh capsule aspirin 81 mg tablet,delayed 81 mg PO QDAY 10/14/24 History release choline 250 mg tablet 250 mg PO QDAY 10/14/2410/10 History glycerin (laxative) 5.4 gram/5.4 See Rx [...] 3-4 times per week duration: 15-30 minutes/day sotero/confucianist: None seatbelt use: always do you feel safe at home: Yes 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 History 2 Elective abortions Hx Para 0 [...] DOC ONLY PRR , WES 05/27/25, boy 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) (7) History of miscarriage, currently : Status: [...] hammonds MD> Date _ Kaila Henderson MD Cosign Signature: Date (if applicable) CC: ~ [facility] Work Phone: Reason for referral (narrative)* Diagnostic Procedure Only (Routine) - Pending Review Specialty Diagnoses / Procedures Referred By Contac t Referred To Contact [facility] Diagnoses Female infertility Procedures FOLLICULAR US [facility] US PELVIC NONOBSTETRIC IMAGE MUKESH LIMITED/F/U Aiyana Harman APRN.CARPENTER SUPERVISOR [address] [place] [address] [place] [address] Referral ID Status Reason Start Date Expiration Date Visits Requested Visits Authorized [id number] Pending Review Auto-Generat ed Referral 09/22/2021 09/22/2022 [address] [facility] Diagnostic Procedure Only (Routine) - Pending Review Specialty Diagnoses / Procedures Referred By Contac t Referred To Contact [facility] Diagnoses Female infertility Procedures FOLLICULAR US I US PELVIC NONOBSTETRIC IMAGE CELESTETN LIMITED/F/U Aiyana Harman APRN.CARPENTER SUPERVISOR [address] [place] [address] [address] Referral ID Status Reason Start Date Expiration Date Visits Requested Visits Authorized [id number] Pending Review Auto-Generat ed Referral 10/06/2021 10/06/2022 6 6 [facility] for referral (narrative)* Diagnostic Procedure Only (Routine) - Pending Review Specialty Diagnoses / Procedures Referred By Contac t Referred To Contact [facility] Diagnoses Primary female infertility Procedures FOLLICULAR US I US PELVIC NONOBSTETRIC IMAGE DCMTN LIMITED/F/U Stuart Guerrero APRN.CARPENTER SUPERVISOR [address] [place] [address] [address] Referral ID Status Reason Start Date Expiration Date Visits Requested Visits Authorized [id number] Pending Review Auto-Generat ed Referral 12/26/2021 12/26/2022 1 1 [facility] for referral (narrative)* Diagnostic Procedure Only (Routine) - Pending Review Specialty Diagnoses / Procedures Referred By Contac t Referred To Contact [facility] Diagnoses Female infertility Procedures FOLLICULAR US I US PELVIC NONOBSTETRIC IMAGE DCMTN LIMITED/F/U Aiyana Harman APRN.CARPENTER SUPERVISOR [address] [place] [address] [address] Referral ID Status Reason Start Date Expiration Date Visits Requested Visits Authorized [id number] Pending Review Auto-Generat ed Referral 02/22/2022 02/22/2023 6 1 [facility] for referral (narrative)* Diagnostic Procedure Only (Routine) - Pending Review Specialty Diagnoses / Procedures Referred By Contac t Referred To Contact [facility] Diagnoses Encounter for fertility testing Procedures FOLLICULAR US [facility]I US PELVIC NONOBSTETRIC IMAGE CELESTETN LIMITED/F/U Stuart Guerrero APRN.CARPENTER SUPERVISOR [address] [place] [address] [facility] [address] [place] [address] Referral ID Status Reason Start Date Expiration Date Visits Requested Visits Authorized [id number] Pending Review Auto-Generat ed Referral 04/11/2023 6 1 [facility] for referral (narrative)* Diagnostic Procedure Only (Routine) - Authorized Specialty Diagnoses / Procedures Referred By Contac t Referred To Contact [facility] Diagnoses Female infertility Procedures FOLLICULAR US I US PELVIC NONOBSTETRIC IMAGE CELESTETBethany LIMITED/F/U Stuart Guerrero APRN.CARPENTER SUPERVISOR [address] [place] [address] [facility] [address] [place] [address] Referral ID Status Reason Start Date Expiration Date Visits Requested Visits Authorized [id number] Authorized Auto-Generat ed Referral 07/24/2022 07/24/2023 1 1 [facility] for referral (narrative)* Diagnostic Procedure Only (Routine) - Authorized Specialty Diagnoses / Procedures Referred By Contac t Referred To Contact [facility] Diagnoses Female infertility Procedures FOLLICULAR US I US PELVIC NONOBSTETRIC IMAGE DCMTN LIMITED/F/U Marina Boswell APRN.CARPENTER SUPERVISOR [address] [facility] [place] [address] [facility] [address] [place] [address] Referral ID Status Reason Start Date Expiration Date Visits Requested Visits Authorized [id number] Authorized Auto-Generat ed Referral 08/28/2022 08/28/2023 6 1 [facility] for referral (narrative)No reason for referral information [facility] Work Phone: Reason for visit Narrative* Diagnostic Procedure Only (Routine) - Closed Specialty Diagnoses / Procedures Referred By Contac t Referred To Contact [facility] Diagnoses Female infertility Procedures FOLLICULAR US [facility] US PELVIC NONOBSTETRIC IMAGE DCMTN LIMITED/F/U Shelby Rojas PA-C [address] [place] [address] [address] Referral ID Status Reason Start Date Expiration Date V isits Requested Visits Authorized [id number] Closed Auto-Generate d Referral 07/05/2022 07/05/2023 6 6 [facility] for visit Narrative* Diagnostic Procedure Only (Routine) - Authorized Specialty Diagnoses / Procedures Referred By Contac t Referred To Contact [facility] Diagnoses Encounter for fertility testing Procedures FOLLICULAR US I US PELVIC NONOBSTETRIC IMAGE [facility]/F/U Stuart Guerrero APRN.CARPENTER SUPERVISOR [address] [place] [address] [address] Referral ID Status Reason Start Date Expiration Date Visits Requested Visits Authorized [id number] Authorized Auto-Generat ed Referral 11/14/2022 06/17/2023 6 6 [facility] for visit Narrative* Radiology Services (Routine) - New Request Specialty Diagnoses / Procedures Referred By Valarie t Referred To Contact RAD Interventional Diagnoses Anorectal malformation Other constipation History of antegrade continence enema procedure Procedures IR Cecostomy Exchange with Fluoro IR Consult Andres Fitzgerald APN [address] [place] [address] Phone: tel: fax: Referral ID Status Reason Start Date Expiration Date V isits Requested Visits Authorized [id number] New Request 04/10/2024 1 1 [facility] (Routine) - New Request Specialty Diagnoses / Procedures Referred By Contac t Referred To Contact [facility] Ultrasound Diagnoses Anorectal malformation Procedures US Kidney Jesse Edwards, IRENA [address] [place] [address] Phone: tel: fax: Referral ID Status Reason Start Date Expiration Date V isits Requested Visits Authorized [id number] New Request 04/09/2024 1 1 [facility] Summary Purpose Family History No Family History Records Found Relationship Condition Age at Onset Recorded Date/T rika grandfather Malignant neoplasm 55 father Diabetes mellitus Unknown uncle Multiple sclerosis Unknown mother Lymphedema Unknown grandfather Lymphedema Unknown Advance Directives No Advanced Directives Records FoundDocuments on File Type Date Recorded Patient Movement Education Specialist Expl anation Advance Directive(s) 05/24/2020 6:40 PM Advance Directive(s) 05/05/2020 11:58 AM Advance Directive(s) 03/25/2020 1:38 PM Documents on File Type Date Recorded Patient Movement Education Specialist Expl anation Advance Directive(s) 05/24/2020 6:40 PM Advance Directive(s) 05/05/2020 11:58 AM Advance Directive(s) 03/25/2020 1:38 PM Advance Directive Response Recorded Date/ Time Advance Directives No April 3:11pm Reason for Referral Specialty Diagnoses / Procedures Referred By Contac t Referred To Contact Marina Boswell APRN.CARPENTER SUPERVISOR [address] [facility] [place] [address] Referral ID Status Reason Start Date Expiration Date V isits Requested Visits Authorized [id number] Authorized 08/28/2022 10/28/2022 1 1 Specialty Diagnoses / Procedures Referred By Contac t Referred To Contact [facility] Interventional Diagnoses Anorectal malformation Procedures IR Consult Chaitanya Akins [address]N [address] [place] [address] Referral ID Status Reason Start Date Expiration Date V isits Requested Visits Authorized [id number] New Request 04/08/2024 1 1 Specialty Diagnoses / Procedures Referred By Contac t Referred To Contact Diagnoses Anorectal malformation Procedures XR Abdomen - Supine Chaitanya Akins, [address] [address] Referral ID Status Reason Start Date Expiration Date V isits Requested Visits Authorized [id number] New Request 04/09/2024 1 1 Specialty Diagnoses / Procedures Referred By Contac t Referred To Contact RAD Interventional Diagnoses Anorectal malformation Other constipation History of antegrade continence enema procedure Procedures IR Consult Andres Fitzgerald [address] [address] Referral ID Status Reason Start Date Expiration Date V isits Requested Visits Authorized [id number] New Request 04/10/2024 1 1 Specialty Diagnoses / Procedures Referred By Rajatac t Referred To Contact Diagnoses Anorectal malformation Other constipation History of antegrade continence enema procedure Procedures XR Abdomen - Supine Andres Fitzgerald JEWELRY SALES COORDINATOR [address] [place] [address] Referral ID Status Reason Start Date Expiration Date V isits Requested Visits Authorized [id number] New Request 04/10/2024 1 1 Specialty Diagnoses / Procedures Referred By Contac t Referred To Contact [facility] Interventional Diagnoses Anorectal malformation Procedures IR Cecostomy Exchange with Fluoro IR Consult Chaitanya Akins, [facility] [address] [place] [address] Chief Complaint and Reason for Visit Chief [...] m 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 [...] m 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 9:03am 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 30, 2024 9:03a m Recto-vaginal fistula October 30, 2024 9:0 3am Tethered cord October 30, 2024 9:03a m 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 9:03am 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, 2024 [...] 2024 8:07a m 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, 2024 8:07am Rectal atresia November 13, 2024 8:07a [...] 2:01pm Hx of maternal blood transfusion, jose herreray November 06, 2024 2:01pm Hypothyroidism affecting October [...] 2024 11: 26am 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 History of miscarriage, currently pregna nt [...] 9:03am 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 15t h, [...] October 14, 2024 9:01am Didelphic uterus in Shayna 29th , 2025 9:01am History of miscarriage, currently pregna nt [...] 2024 11: 26am 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 025 11:26am History of miscarriage, currently pregna [...] 2024 11:40am Hx of maternal blood transfusion, dontrellen tly December 24, 2024 11:40am Hypothyroidism affecting [...] 2024 9:01am Hx of maternal blood transfusion, dnotrellen tly October 14, 2024 9:01am Hypothyroidism affecting [...] 9:03am 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 15t h, [...] 06, 2024 2:01pm 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, 2024 2:01pm [...] 11:40am Hx of maternal blood transfusion, jose tly December 24, 2024 11:40am Hypothyroidism affecting [...] 3:23pm Hx of maternal blood transfusion, jose bansal January 20, 2025 3:23pm Hypothyroidism affecting Augus [...] 9:03a m 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 9:03am 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, 2024 [...] 8:07am Hx of maternal blood transfusion, jose tlgaudencio November 13, 2024 8:07am Hypothyroidism affecting October [...] vitro fertilization November 18, 2024 2: 10pm Peg 3rd, 2025 2:10p m Spotting affecting in first tr [...] 2024 2:33pm Hx of maternal blood transfusion, currkae tly November 26, 2024 2:33pm Hypothyroidism affecting [...] 11 :40am ARM (anorectal malformation) December 24, 11:40am 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, 2024 [...] January 20, 2025 3:23pm Hypothyroidism affecting Augus 2024 3:23pm In vitro fertilization January 20, [...] 2025 9:02am Hx of maternal blood transfusion, curren tly February 19, 2025 9:02am Hypothyroidism affecting Septe mb2024 9:02am In vitro fertilization February 19 9:02am February 19, 2025 9:02am Spotting affecting in first tr imester February 19, 2025 9:02am Supervision of high-risk Septe mber 2024 9:02am UTI (urinary tract infection) during pre gnancy February 19, 2025 9:02am Congenital duplication of vagina Septemb er 2024 9:02am Rectal atresia February 19, 2025 9:02am Recto-vaginal fistula February 19 9:02am Tethered cord February 19, 2025 9:02am Additional Source Comments INFORMATION SOURCE (unrecogn ized section and content) DATE CREATED AUTHOR 11/01/2019 [facility] DATE CREATED AUTHOR AUTHOR'S ORGANIZ ATION 12/03/2020 [facility] DATE CREATED AUTHOR AUTHOR'S ORGANIZ ATION 03/17/2021 [facility] DATE CREATED AUTHOR AUTHOR'S ORGANIZ ATION 06/09/2022 [facility] DATE CREATED AUTHOR AUTHOR'S ORGANIZ ATION 11/11/2023 [facility] DATE CREATED AUTHOR AUTHOR'S ORGANIZ ATION 11/14/2023 [facility] DATE CREATED AUTHOR AUTHOR'S ORGANIZ ATION 11/17/2023 [facility] DATE CREATED AUTHOR AUTHOR'S ORGANIZ ATION 10/11/2024 [facility] DATE CREATED AUTHOR AUTHOR'S ORGANIZ ATION 11/28/2024 [facility] DATE CREATED AUTHOR AUTHOR'S ORGANIZ ATION 02/13/2025 [facility] DATE CREATED AUTHOR AUTHOR'S ORGANIZ ATION 02/27/2025 [facility] DATE CREATED AUTHOR AUTHOR'S ORGANIZ ATION 03/04/2025 [facility] Source Comments (unrecognize d section and content) In the event this informatio n is protected by the Federal Confidentiality of Alcohol and Drug Abuse Patient Records regulations: The Federal rules restrict any use of the information to criminally investigate or prosecute any alcohol or drug abuse patient.[facility] the event this information is protected by the Federal Confidentiality of Alcohol and Drug Abuse Patient Records regulations: The Federal rules restrict any use of the information to criminally investigate or prosecute any alcohol or drug abuse patient.[facility] [facility] HospitalIn the event this information is protected by the Federal Confidentiality of Alcohol and Drug Abuse Patient Records regulations: The Federal rules restrict any use of the information to criminally investigate or prosecute any alcohol or drug abuse patient.[facility] HospitalIn the event this information is protected by the Federal Confidentiality of Alcohol and Drug Abuse Patient Records regulations: The Federal rules restrict any use of the information to criminally investigate or prosecute any alcohol or drug abuse patient.[facility] HospitalIn the event this information is protected by the Federal Confidentiality of Alcohol and Drug Abuse Patient Records regulations: The Federal rules restrict any use of the information to criminally investigate or prosecute any alcohol or drug abuse patient.[facility] HospitalIn the event this information is protected by the Federal Confidentiality of Alcohol and Drug Abuse Patient Records regulations: The Federal rules restrict any use of the information to criminally investigate or prosecute any alcohol or drug abuse patient.[facility] HospitalIn the event this information is protected by the Federal Confidentiality of Alcohol and Drug Abuse Patient Records regulations: The Federal rules restrict any use of the information to criminally investigate or prosecute any alcohol or drug abuse patient.[facility] HospitalIn the event this information is protected by the Federal Confidentiality of Alcohol and Drug Abuse Patient Records regulations: The Federal rules restrict any use of the information to criminally investigate or prosecute any alcohol or drug abuse patient.[facility] HospitalIn the event this information is protected by the Federal Confidentiality of Alcohol and Drug Abuse Patient Records regulations: The Federal rules restrict any use of the information to criminally investigate or prosecute any alcohol or drug abuse patient.[facility] HospitalIn the event this information is protected by the Federal Confidentiality of Alcohol and Drug Abuse Patient Records regulations: The Federal rules restrict any use of the information to criminally investigate or prosecute any alcohol or drug abuse patient.[facility] HospitalIn the event this information is protected by the Federal Confidentiality of Alcohol and Drug Abuse Patient Records regulations: The Federal rules restrict any use of the information to criminally investigate or prosecute any alcohol or drug abuse patient.[facility] HospitalIn the event this information is protected by the Federal Confidentiality of Alcohol and Drug Abuse Patient Records regulations: The Federal rules restrict any use of the information to criminally investigate or prosecute any alcohol or drug abuse patient.[facility] HospitalIn the event this information is protected by the Federal Confidentiality of Alcohol and Drug Abuse Patient Records regulations: The Federal rules restrict any use of the information to criminally investigate or prosecute any alcohol or drug abuse patient.[facility] HospitalIn the event this information is protected by the Federal Confidentiality of Alcohol and Drug Abuse Patient Records regulations: The Federal rules restrict any use of the information to criminally investigate or prosecute any alcohol or drug abuse patient.[facility] HospitalIn the event this information is protected by the Federal Confidentiality of Alcohol and Drug Abuse Patient Records regulations: The Federal rules restrict any use of the information to criminally investigate or prosecute any alcohol or drug abuse patient.[facility] HospitalIn the event this information is protected by the Federal Confidentiality of Alcohol and Drug Abuse Patient Records regulations: The Federal rules restrict any use of the information to criminally investigate or prosecute any alcohol or drug abuse patient.[facility] HospitalIn the event this information is protected by the Federal Confidentiality of Alcohol and Drug Abuse Patient Records regulations: The Federal rules restrict any use of the information to criminally investigate or prosecute any alcohol or drug abuse patient.[facility] HospitalIn the event this information is protected by the Federal Confidentiality of Alcohol and Drug Abuse Patient Records regulations: The Federal rules restrict any use of the information to criminally investigate or prosecute any alcohol or drug abuse patient.[facility] HospitalIn the event this information is protected by the Federal Confidentiality of Alcohol and Drug Abuse Patient Records regulations: The Federal rules restrict any use of the information to criminally investigate or prosecute any alcohol or drug abuse patient.[facility] HospitalIn the event this information is protected by the Federal Confidentiality of Alcohol and Drug Abuse Patient Records regulations: The Federal rules restrict any use of the information to criminally investigate or prosecute any alcohol or drug abuse patient.[facility] HospitalIn the event this information is protected by the Federal Confidentiality of Alcohol and Drug Abuse Patient Records regulations: The Federal rules restrict any use of the information to criminally investigate or prosecute any alcohol or drug abuse patient.[facility] HospitalIn the event this information is protected by the Federal Confidentiality of Alcohol and Drug Abuse Patient Records regulations: The Federal rules restrict any use of the information to criminally investigate or prosecute any alcohol or drug abuse patient.[facility] HospitalIn the event this information is protected by the Federal Confidentiality of Alcohol and Drug Abuse Patient Records regulations: The Federal rules restrict any use of the information to criminally investigate or prosecute any alcohol or drug abuse patient.[facility] HospitalIn the event this information is protected by the Federal Confidentiality of Alcohol and Drug Abuse Patient Records regulations: The Federal rules restrict any use of the information to criminally investigate or prosecute any alcohol or drug abuse patient.[facility] HospitalIn the event this information is protected by the Federal Confidentiality of Alcohol and Drug Abuse Patient Records regulations: The Federal rules restrict any use of the information to criminally investigate or prosecute any alcohol or drug abuse patient.[facility] HospitalIn the event this information is protected by the Federal Confidentiality of Alcohol and Drug Abuse Patient Records regulations: The Federal rules restrict any use of the information to criminally investigate or prosecute any alcohol or drug abuse patient.[facility] HospitalIn the event this information is protected by the Federal Confidentiality of Alcohol and Drug Abuse Patient Records regulations: The Federal rules restrict any use of the information to criminally investigate or prosecute any alcohol or drug abuse patient.[facility] HospitalIn the event this information is protected by the Federal Confidentiality of Alcohol and Drug Abuse Patient Records regulations: The Federal rules restrict any use of the information to criminally investigate or prosecute any alcohol or drug abuse patient.[facility] HospitalIn the event this information is protected by the Federal Confidentiality of Alcohol and Drug Abuse Patient Records regulations: The Federal rules restrict any use of the information to criminally investigate or prosecute any alcohol or drug abuse patient.[facility] HospitalIn the event this information is protected by the Federal Confidentiality of Alcohol and Drug Abuse Patient Records regulations: The Federal rules restrict any use of the information to criminally investigate or prosecute any alcohol or drug abuse patient.[facility] HospitalIn the event this information is protected by the Federal Confidentiality of Alcohol and Drug Abuse Patient Records regulations: The Federal rules restrict any use of the information to criminally investigate or prosecute any alcohol or drug abuse patient.[facility] HospitalIn the event this information is protected by the Federal Confidentiality of Alcohol and Drug Abuse Patient Records regulations: The Federal rules restrict any use of the information to criminally investigate or prosecute any alcohol or drug abuse patient.[facility] HospitalIn the event this information is protected by the Federal Confidentiality of Alcohol and Drug Abuse Patient Records regulations: The Federal rules restrict any use of the information to criminally investigate or prosecute any alcohol or drug abuse patient.[facility] HospitalIn the event this information is protected by the Federal Confidentiality of Alcohol and Drug Abuse Patient Records regulations: The Federal rules restrict any use of the information to criminally investigate or prosecute any alcohol or drug abuse patient.[facility] HospitalIn the event this information is protected by the Federal Confidentiality of Alcohol and Drug Abuse Patient Records regulations: The Federal rules restrict any use of the information to criminally investigate or prosecute any alcohol or drug abuse patient.[facility] HospitalIn the event this information is protected by the Federal Confidentiality of Alcohol and Drug Abuse Patient Records regulations: The Federal rules restrict any use of the information to criminally investigate or prosecute any alcohol or drug abuse patient.[facility] HospitalIn the event this information is protected by the Federal Confidentiality of Alcohol and Drug Abuse Patient Records regulations: The Federal rules restrict any use of the information to criminally investigate or prosecute any alcohol or drug abuse patient.[facility] HospitalIn the event this information is protected by the Federal Confidentiality of Alcohol and Drug Abuse Patient Records regulations: The Federal rules restrict any use of the information to criminally investigate or prosecute any alcohol or drug abuse patient.[facility] HospitalIn the event this information is protected by the Federal Confidentiality of Alcohol and Drug Abuse Patient Records regulations: The Federal rules restrict any use of the information to criminally investigate or prosecute any alcohol or drug abuse patient.[facility] HospitalIn the event this information is protected by the Federal Confidentiality of Alcohol and Drug Abuse Patient Records regulations: The Federal rules restrict any use of the information to criminally investigate or prosecute any alcohol or drug abuse patient.[facility] HospitalIn the event this information is protected by the Federal Confidentiality of Alcohol and Drug Abuse Patient Records regulations: The Federal rules restrict any use of the information to criminally investigate or prosecute any alcohol or drug abuse patient.[facility] HospitalIn the event this information is protected by the Federal Confidentiality of Alcohol and Drug Abuse Patient Records regulations: The Federal rules restrict any use of the information to criminally investigate or prosecute any alcohol or drug abuse patient.[facility] HospitalIn the event this information is protected by the Federal Confidentiality of Alcohol and Drug Abuse Patient Records regulations: The Federal rules restrict any use of the information to criminally investigate or prosecute any alcohol or drug abuse patient.[facility] HospitalIn the event this information is protected by the Federal Confidentiality of Alcohol and Drug Abuse Patient Records regulations: The Federal rules restrict any use of the information to criminally investigate or prosecute any alcohol or drug abuse patient.[facility] HospitalIn the event this information is protected by the Federal Confidentiality of Alcohol and Drug Abuse Patient Records regulations: The Federal rules restrict any use of the information to criminally investigate or prosecute any alcohol or drug abuse patient.[facility] HospitalIn the event this information is protected by the Federal Confidentiality of Alcohol and Drug Abuse Patient Records regulations: The Federal rules restrict any use of the information to criminally investigate or prosecute any alcohol or drug abuse patient.[facility] HospitalIn the event this information is protected by the Federal Confidentiality of Alcohol and Drug Abuse Patient Records regulations: The Federal rules restrict any use of the information to criminally investigate or prosecute any alcohol or drug abuse patient.[facility] HospitalIn the event this information is protected by the Federal Confidentiality of Alcohol and Drug Abuse Patient Records regulations: The Federal rules restrict any use of the information to criminally investigate or prosecute any alcohol or drug abuse patient.[facility] HospitalIn the event this information is protected by the Federal Confidentiality of Alcohol and Drug Abuse Patient Records regulations: The Federal rules restrict any use of the information to criminally investigate or prosecute any alcohol or drug abuse patient.[facility] HospitalIn the event this information is protected by the Federal Confidentiality of Alcohol and Drug Abuse Patient Records regulations: The Federal rules restrict any use of the information to criminally investigate or prosecute any alcohol or drug abuse patient.[facility] HospitalIn the event this information is protected by the Federal Confidentiality of Alcohol and Drug Abuse Patient Records regulations: The Federal rules restrict any use of the information to criminally investigate or prosecute any alcohol or drug abuse patient.[facility] HospitalIn the event this information is protected by the Federal Confidentiality of Alcohol and Drug Abuse Patient Records regulations: The Federal rules restrict any use of the information to criminally investigate or prosecute any alcohol or drug abuse patient.[facility] HospitalIn the event this information is protected by the Federal Confidentiality of Alcohol and Drug Abuse Patient Records regulations: The Federal rules restrict any use of the information to criminally investigate or prosecute any alcohol or drug abuse patient.[facility] HospitalIn the event this information is protected by the Federal Confidentiality of Alcohol and Drug Abuse Patient Records regulations: The Federal rules restrict any use of the information to criminally investigate or prosecute any alcohol or drug abuse patient.[facility] HospitalIn the event this information is protected by the Federal Confidentiality of Alcohol and Drug Abuse Patient Records regulations: The Federal rules restrict any use of the information to criminally investigate or prosecute any alcohol or drug abuse patient.[facility] HospitalIn the event this information is protected by the Federal Confidentiality of Alcohol and Drug Abuse Patient Records regulations: The Federal rules restrict any use of the information to criminally investigate or prosecute any alcohol or drug abuse patient.[facility] HospitalIn the event this information is protected by the Federal Confidentiality of Alcohol and Drug Abuse Patient Records regulations: The Federal rules restrict any use of the information to criminally investigate or prosecute any alcohol or drug abuse patient.[facility] HospitalIn the event this information is protected by the Federal Confidentiality of Alcohol and Drug Abuse Patient Records regulations: The Federal rules restrict any use of the information to criminally investigate or prosecute any alcohol or drug abuse patient.[facility] HospitalIn the event this information is protected by the Federal Confidentiality of Alcohol and Drug Abuse Patient Records regulations: The Federal rules restrict any use of the information to criminally investigate or prosecute any alcohol or drug abuse patient.[facility] HospitalIn the event this information is protected by the Federal Confidentiality of Alcohol and Drug Abuse Patient Records regulations: The Federal rules restrict any use of the information to criminally investigate or prosecute any alcohol or drug abuse patient.[facility] HospitalIn the event this information is protected by the Federal Confidentiality of Alcohol and Drug Abuse Patient Records regulations: The Federal rules restrict any use of the information to criminally investigate or prosecute any alcohol or drug abuse patient.[facility] HospitalIn the event this information is protected by the Federal Confidentiality of Alcohol and Drug Abuse Patient Records regulations: The Federal rules restrict any use of the information to criminally investigate or prosecute any alcohol or drug abuse patient.[facility] HospitalIn the event this information is protected by the Federal Confidentiality of Alcohol and Drug Abuse Patient Records regulations: The Federal rules restrict any use of the information to criminally investigate or prosecute any alcohol or drug abuse patient.[facility] HospitalIn the event this information is protected by the Federal Confidentiality of Alcohol and Drug Abuse Patient Records regulations: The Federal rules restrict any use of the information to criminally investigate or prosecute any alcohol or drug abuse patient.[facility] HospitalIn the event this information is protected by the Federal Confidentiality of Alcohol and Drug Abuse Patient Records regulations: The Federal rules restrict any use of the information to criminally investigate or prosecute any alcohol or drug abuse patient.[facility] HospitalIn the event this information is protected by the Federal Confidentiality of Alcohol and Drug Abuse Patient Records regulations: The Federal rules restrict any use of the information to criminally investigate or prosecute any alcohol or drug abuse patient.[facility] HospitalIn the event this information is protected by the Federal Confidentiality of Alcohol and Drug Abuse Patient Records regulations: The Federal rules restrict any use of the information to criminally investigate or prosecute any alcohol or drug abuse patient.[facility] HospitalIn the event this information is protected by the Federal Confidentiality of Alcohol and Drug Abuse Patient Records regulations: The Federal rules restrict any use of the information to criminally investigate or prosecute any alcohol or drug abuse patient.[facility] HospitalIn the event this information is protected by the Federal Confidentiality of Alcohol and Drug Abuse Patient Records regulations: The Federal rules restrict any use of the information to criminally investigate or prosecute any alcohol or drug abuse patient.[facility] HospitalIn the event this information is protected by the Federal Confidentiality of Alcohol and Drug Abuse Patient Records regulations: The Federal rules restrict any use of the information to criminally investigate or prosecute any alcohol or drug abuse patient.[facility] HospitalIn the event this information is protected by the Federal Confidentiality of Alcohol and Drug Abuse Patient Records regulations: The Federal rules restrict any use of the information to criminally investigate or prosecute any alcohol or drug abuse patient.[facility] HospitalIn the event this information is protected by the Federal Confidentiality of Alcohol and Drug Abuse Patient Records regulations: The Federal rules restrict any use of the information to criminally investigate or prosecute any alcohol or drug abuse patient.[facility] HospitalIn the event this information is protected by the Federal Confidentiality of Alcohol and Drug Abuse Patient Records regulations: The Federal rules restrict any use of the information to criminally investigate or prosecute any alcohol or drug abuse patient.[facility] HospitalIn the event this information is protected by the Federal Confidentiality of Alcohol and Drug Abuse Patient Records regulations: The Federal rules restrict any use of the information to criminally investigate or prosecute any alcohol or drug abuse patient.[facility] HospitalIn the event this information is protected by the Federal Confidentiality of Alcohol and Drug Abuse Patient Records regulations: The Federal rules restrict any use of the information to criminally investigate or prosecute any alcohol or drug abuse patient.[facility] HospitalIn the event this information is protected by the Federal Confidentiality of Alcohol and Drug Abuse Patient Records regulations: The Federal rules restrict any use of the information to criminally investigate or prosecute any alcohol or drug abuse patient.[facility] HospitalIn the event this information is protected by the Federal Confidentiality of Alcohol and Drug Abuse Patient Records regulations: The Federal rules restrict any use of the information to criminally investigate or prosecute any alcohol or drug abuse patient.[facility] HospitalIn the event this information is protected by the Federal Confidentiality of Alcohol and Drug Abuse Patient Records regulations: The Federal rules restrict any use of the information to criminally investigate or prosecute any alcohol or drug abuse patient.[facility] HospitalIn the event this information is protected by the Federal Confidentiality of Alcohol and Drug Abuse Patient Records regulations: The Federal rules restrict any use of the information to criminally investigate or prosecute any alcohol or drug abuse patient.[facility] Care Teams (unrecognized sec tion and content) Snowboarder Relationship Specialty Start Date End Date Clare Helma Gary [address] [place], [place] [phone] PCP - General Family Practice 09/25/19 Snowboarder Relationship Specialty Start Date End Date Johnmarysol Imani Vega [address] [place], [place] [id number] PCP - General Family Practice 09/25/19 Snowboarder Relationship Specialty Start Date End Date Imani Helm [address] [place], [place] [id number] PCP - General Family Practice 09/25/19 Snowboarder Relationship Specialty Start Date End Date Johnmarysol Imani Vega [address] [place] [id number] PCP - General Family Practice 09/25/19 Snowboarder Relationship Specialty Start Date End Date Johnmarysol Imani Vega [address] [place] [address] PCP - General Family Practice 09/25/19 Snowboarder Relationship Specialty Start Date End Date Imani Helm DO [address] [place], [place] [address] PCP - General Family Practice 09/25/19 Snowboarder Relationship Specialty Start Date End Date Imani Helm DO [address] [place], [place] [address] PCP - General Family Practice 09/25/19 Snowboarder Relationship Specialty Start Date End Date Imani Helm DO [address] [place], [place] [id number] PCP - General Family Practice 09/25/19 Snowboarder Relationship Specialty Start Date End Date Imani Helm DO [address] [place], [place] [id number] PCP - General Family Practice 09/25/19 Snowboarder Relationship Specialty Start Date End Date Imani Helm DO [address] [place], [place] [id number] PCP - General Family Practice 09/25/19 Snowboarder Relationship Specialty Start Date End Date Imani Helm DO [address] [place], [place] [id number] PCP - General Family Practice 09/25/19 Snowboarder Relationship Specialty Start Date End Date Imani Helm DO [address] [place], [place] [address] PCP - General Family Practice 09/25/19 Snowboarder Relationship Specialty Start Date End Date Imani Helm DO [address] [place] [address] PCP - General Family Practice 09/25/19 Snowboarder Relationship Specialty Start Date End Date Imani Helm DO PCP - General Family Medicine 09/25/19 Snowboarder Relationship Specialty Start Date End Date Imani Helm DO PCP - General Family Medicine 09/25/19 Snowboarder Relationship Specialty Start Date End Date Imani Helm DO PCP - General Family Medicine 09/25/19 Snowboarder Relationship Specialty Start Date End Date Imani Helm DO PCP - General Family Medicine 09/25/19 Snowboarder Relationship Specialty Start Date End Date Imani Helm DO PCP - General Family Medicine 09/25/19 Snowboarder Relationship Specialty Start Date End Date Imani Helm DO PCP - General Family Medicine 09/25/19 Snowboarder Relationship Specialty Start Date End Date Imani Helm DO PCP - General Family Medicine 09/25/19 Snowboarder Relationship Specialty Start Date End Date Imani Helm DO PCP - General Family Medicine 09/25/19 Snowboarder Relationship Specialty Start Date End Date Imani Helm DO PCP - General Family Medicine 09/25/19 Snowboarder Relationship Specialty Start Date End Date Imani Helm DO PCP - General Family Medicine 09/25/19 Snowboarder Relationship Specialty Start Date End Date Imani Helm DO PCP - General Family Medicine 09/25/19 Snowboarder Relationship Specialty Start Date End Date Imani Helm DO PCP - General Family Medicine 09/25/19 Snowboarder Relationship Specialty Start Date End Date Imani Helm DO PCP - General Family Medicine 09/25/19 Snowboarder Relationship Specialty Start Date End Date Imani Helm DO PCP - General Family Medicine 09/25/19 Snowboarder Relationship Specialty Start Date End Date Imani Helm DO PCP - General Family Medicine 09/25/19 Snowboarder Relationship Specialty Start Date End Date Imani Helm DO PCP - General Family Medicine 09/25/19 Snowboarder Relationship Specialty Start Date End Date Imani Helm DO PCP - General Family Medicine 09/25/19 Snowboarder Relationship Specialty Start Date End Date Imani Helm DO PCP - General Family Medicine 09/25/19 Snowboarder Relationship Specialty Start Date End Date Imani Helm DO PCP - General Family Medicine 09/25/19 Snowboarder Relationship Specialty Start Date End Date Imani Helm DO PCP - General Family Medicine 09/25/19 Snowboarder Relationship Specialty Start Date End Date Imani Helm DO PCP - General Family Medicine 09/25/19 Snowboarder Relationship Specialty Start Date End Date Imani Helm, DO PCP - General Family Medicine 09/25/19 Snowboarder Relationship Specialty Start Date End Date Imani Helm DO PCP - General Family Medicine 09/25/19 Snowboarder Relationship Specialty Start Date End Date Imani Helm DO PCP - General Family Medicine 09/25/19 Snowboarder Relationship Specialty Start Date End Date Imani Helm DO PCP - General Family Medicine 09/25/19 Snowboarder Relationship Specialty Start Date End Date Imani Helm DO PCP - General Family Medicine 09/25/19 Snowboarder Relationship Specialty Start Date End Date Imani Helm DO PCP - General Family Medicine 09/25/19 Snowboarder Relationship Specialty Start Date End Date Imani Helm DO PCP - General Family Medicine 09/25/19 Snowboarder Relationship Specialty Start Date End Date Imani Helm DO PCP - General Family Medicine 09/25/19 Snowboarder Relationship Specialty Start Date End Date Imani Helm DO PCP - General Family Medicine 09/25/19 Snowboarder Relationship Specialty Start Date End Date Imani Helm DO PCP - General Family Medicine 09/25/19 Snowboarder Relationship Specialty Start Date End Date Imani Helm [address] [place] [address] 6 [place], [place] [id number] PCP - General 07/26/20 Snowboarder Relationship Specialty Start Date End Date Imani Helm [address] [place] [address] 6 [place], [place] 508121 PCP - General 07/26/20 Snowboarder Relationship Specialty Start Date End Date Imani Helm [address] [place] [address] 6 [place], [place] [id number] PCP - General 07/26/20 Snowboarder Relationship Specialty Start Date End Date Imani Helm [address] [place] [id number] PCP - General 07/26/20 Snowboarder Relationship Specialty Start Date End Date Imani Helm [address] [place] [id number] PCP - General 07/26/20 Snowboarder Relationship Specialty Start Date End Date Imani Helm [address] [place] [address] 6 [place], [place] [address]461 PCP - General 07/26/20 Snowboarder Relationship Specialty Start Date End Date Imani Helm [address] [place] [address] 6 [place], [place] [id number] PCP - General 07/26/20 Snowboarder Relationship Specialty Start Date End Date Imani Helm [address] [place] [address] 6 [place], [place] [address]001 PCP - General 07/26/20 Team Status: Active [...] 2024 End: November 18, 2024 Jesse Horvath MANAGER OF CORPORATE COMMUNICATIONS, MANAGER OF CORPORATE COMMUNICATIONS-C Attending Provider Active Start: November 18, 2024 End: November 18, 2024 Team Status: Inactive Member Role Status Dates Dr. Imani Helm DO Primary Care Provider Active Start: November 18, 2024 End: November 18, 2024 Jesse Horvath MANAGER OF CORPORATE COMMUNICATIONS, MANAGER OF CORPORATE COMMUNICATIONS-C Attending Provider Active Start: November 18, 2024 End: November 18, 2024 Jesse Horvath MANAGER OF CORPORATE COMMUNICATIONS, MANAGER OF CORPORATE COMMUNICATIONS-C Referring Provider Active Start: November 18, 2024 [...] 2024 End: December 03, 2024 Dr. Kaila Henderson MD Attending Provider Active Start: December 03, 2024 End: December 03, 2024 Dr. Kaila Henderson MD Referring Provider Active Start: December 03, [...] 2024 End: November 18, 2024 Jesse Horvath MANAGER OF CORPORATE COMMUNICATIONS, MANAGER OF CORPORATE COMMUNICATIONS-C Attending Provider Active Start: November 18, 2024 End: November 18, 2024 Team Status: Inactive Member Role/Relationship Status Dates Dr. Imani Helm DO Primary Care Provider Active Start: November 18, 2024 End: November 18, 2024 Jesse Horvath MANAGER OF CORPORATE COMMUNICATIONS, MANAGER OF CORPORATE COMMUNICATIONS-C Attending Provider Active Start: November 18, 2024 End: November 18, 2024 Jesse Horvath MANAGER OF CORPORATE COMMUNICATIONS, MANAGER OF CORPORATE COMMUNICATIONS-C Referring Provider Active Start: November 18, 2024 [...] 2024 End: December 03, 2024 Dr. Kaila Henderson MD Attending Provider Active Start: December 03, 2024 End: December 03, 2024 Dr. Kaila Henderson MD Referring Provider Active Start: December 03, [...] 2025 End: January 20, 2025 Dr. Iman Vande Velde , DO Attending Provider Activ e Start: January 20, 2025 End: January 20, 2025 Snowboarder Relationship Specialty Start Date End Date Imani Helm [facility] [place] [address] PCP - General 07/26/20 Team Status: Inactive Member Role/Relationship Status Dates Dr. Imani Helm DO Primary Care Provider Active Start: October 24, 2024 End: October 24, 2024 Dr. Imani Helm DO Referring Provider Active St art: October 24, 2024 End: October 24, 2024 Dr. Iman Jolley , DO Attending Provider Activ e Start: October [...] 2024 End: November 18, 2024 Jesse Horvath MANAGER OF CORPORATE COMMUNICATIONS, MANAGER OF CORPORATE COMMUNICATIONS-C Attending Provider Active Start: November 18, 2024 End: November 18, 2024 Team Status: Inactive Member Role/Relationship Status Dates Dr. Imani Helm DO Primary Care Provider Active Start: November 18, 2024 End: November 18, 2024 Jesse Horvath MANAGER OF CORPORATE COMMUNICATIONS, MANAGER OF CORPORATE COMMUNICATIONS-C Attending Provider Active Start: November 18, 2024 End: November 18, 2024 Jesse Horvath MANAGER OF CORPORATE COMMUNICATIONS, MANAGER OF CORPORATE COMMUNICATIONS-C Referring Provider Active Start: November 18, 2024 [...] 2024 End: December 03, 2024 Dr. Kaila Henderson MD Attending Provider Active Start: December 03, 2024 End: December 03, 2024 Dr. Kaila Henderson MD Referring Provider Active Start: December 03, [...] 2025 End: February 19, 2025 Dr. Kaila Henderson MD Attending Provider Active Start: February 19, 2025 End: February 19, 2025 Team Status: Active Member Role/Relationship Status Dates Dr. Imani Helm DO Primary Care Provider Active Start: February 19, 2025 Dr. Kaila Henderson MD Attending Provider Active Start: February 19, 2025 Dr. Kaila Henderson MD Referring Provider Active Start: February 19, 2025 Reason for Visit (unrecogniz ed section and content) Reason Comments Infertility Specialty Diagnoses / Procedures Referred By Contac t Referred To Contact [facility] Diagnoses IVF #3 Restart Procedures IVF #[place] [address] [address] i Ve[address]ice [facility] [address] [address] [place] [id number] Referral ID Status Reason Start Date Expiration Date Visits Requested Visits Authorized [id number] Authorized Financial Clearance Required - Self Pay [...] Referred By Valarie santillan Referred To Contact [facility] Diagnoses FET package [place] [address] [place] [id number] [place] [address] Referral ID Status Reason Start Date Expiration Date Visits Requested Visits Authorized [id number] Authorized Financial Clearance Required - Self Pay Do Not Bill Insurance - SP patient Patient Cleared - True Self-Pay required payment collected Financial Clearance Not Required 01/13/2022 03/14/2022 99 99 Specialty Diagnoses / Procedures Referred By Valarie santillan Referred To Contact [facility] Diagnoses FET package [place] [address] [place] [id number] [place] [address] Reason Comments Freda/forgot estrogen this morning Reason Comments ques on meds Reason Comments Patient Update Reason Comments Freda A / Lmp today please call pt Called Back Started period today , baselines Sunday? Specialty Diagnoses / Procedures Referred By Valarie t Referred To Contact [facility] Diagnoses Encounter for fertility testing Procedures FOLLICULAR US [facility] US PELVIC NONOBSTETRIC IMAGE DCMTN LIMITED/F/U Stuart Guerrero APRN.CARPENTER SUPERVISOR [address] [place] [id number] [address] [place] [address] Referral ID Status Reason Start Date Expiration Date V isits Requested Visits Authorized [id number] Closed Auto-Generate d Referral 04/23/2022 06/17/2022 6 1 Reason Comments Freda Freda bleeding a lot this am/stopped inj Reason Comments Patient Question Reason Comments Cycle start 02/10 Reason Comments FET thaw plan called back about thaw plan Reason Comments Treatment Planning Specialty Diagnoses / Procedures Referred By [facility] Referred To Contact [facility]ODUCT[facility] ENDOCRINOLOGY [facility] FERTILITY Diagnoses Female infertility, unspecified Procedures OFFICE/OUTPATIENT ESTABLISHED LOW MDM 20-29 [place] [address] [place] [id number] [facility] [address] [place] [id number] Referral ID Status Reason Start Date Expiration Date Visits Requested Visits Authorized [id number] Authorized Benefit Check 05/03/2022 06/17/2022 5 5 Reason Comments Requires IVF Prior Authorization Reason Comments Did we get her FMLA paperwork Freda/ been bleeding for 13 days consistently light Just an FYI started Wellbutrin 2 weeks ago, can that affect her cycle? Reason Comments monitoring Specialty Diagnoses / Procedures Referred By [facility] Referred To Contact [facility] FERTILITY Diagnoses IVF #3 Restart Procedures IVF #[place] [address] [address] [facility] [address] [place] [id number] Reason Comments Infertility Specialty Diagnoses / Procedures Referred By [facility] Referred To Contact [facility] Diagnoses Female infertility Procedures FOLLICULAR US [facility] US PELVIC NONOBSTETRIC IMAGE DCMTN LIMITED/F/U Shelby Rojas PA-C [address] [place] [address] [facility] [address] [place] [id number] Referral ID Status Reason Start Date Expiration Date V isits Requested Visits Authorized [id number] Closed Auto-Generate d Referral 07/05/2022 07/05/2023 6 6 Reason Comments Patient Update Reason Comments order injections Reason Comments Next Steps Reason Comments re medication/was it called in SEt up baseline for tomorrow at [facility] prefers between 7 and 8 am Specialty Diagnoses / Procedures Referred By Contac t Referred To Contact [facility] Diagnoses Female infertility Procedures FOLLICULAR US [facility] US PELVIC NONOBSTETRIC IMAGE DCMTN LIMITED/F/U Marina Boswell APRN.CARPENTER SUPERVISOR [address] [facility] [place] [address] [facility] [address] [place] [address] Referral ID Status Reason Start Date Expiration Date V isits Requested Visits Authorized [id number] Closed Auto-Generate d Referral 08/28/2022 08/28/2023 6 1 Specialty Diagnoses / Procedures Referred By Contac t Referred To Contact [facility]ERT[facility] Diagnoses Female infertility, unspecified Procedures IVF PACKAGE IVF #4 [place] [address] [place] [address] [address] [facility] [address] [address] [place] [address] Referral ID Status Reason Start Date Expiration Date Visits Requested Visits Authorized [id number] Authorized Financial Clearance Required - Self Pay Do Not Bill Insurance - SP patient Financial Clearance Not Required Patient Cleared - True Self-Pay required payment collected 08/25/2022 11/23/2022 99 99 Reason Comments pt states meds are on back order Referral ID Status Reason Start Date Expiration Date Visits Requested Visits Authorized [id number] Authorized Auto-Generat ed Referral 11/14/2022 06/17/2023 6 6 Reason Comments Freda re appt tomorrow Reason Comments switching pharamacy Reason Comments cd 1 Reason Comments Opened in Error Reason Comments [facility] Patient Care Conference Reason Onset Date Comments General Inquiry 04/08/2024 Reason Onset Date Comments Insurance Issue 04/09/2024 Reason Comments Anorectal Malformation Specialty Diagnoses / Procedures Referred By Contac t Referred To Contact Diagnoses Anorectal malformation Procedures XR Abdomen - Supine Chaitanya Akins APN [address] [place] [address] Referral ID Status Reason Start Date Expiration Date V isits Requested Visits Authorized [id number] New Request 04/09/2024 1 1 Specialty Diagnoses / Procedures Referred By Contac t Referred To Contact RAD Interventional Diagnoses Anorectal malformation Procedures IR Cecostomy Exchange with Fluoro IR Consult Chaitanya Akins APN [address] [place] [address] Referral ID Status Reason Start Date Expiration Date V isits Requested Visits Authorized [id number] New Request 04/08/2024 1 1 Reason Onset Date Comments DME Prescription 04/13/2024 Reason Comments Anorectal Malformation Reason Comments Ultrasound Specialty Diagnoses / Procedures Referred By Contac t Referred To Contact Diagnoses Advanced maternal age, 1st , first trimester Procedures US OB DETAILED ANATOMY Raquel Lainez MD [address] [address] Phone: tel: fax: Referral ID Status Reason Start Date Expiration Date V isits Requested Visits Authorized [id number] New Request 11/06/2024 12/01/2025 1 1 Reason Comments Initial Visit Transfer OB Specialty Diagnoses / Procedures Referred By Contac t Referred To Contact Diagnoses Encounter for ultrasound to assess interval growth of fetus Encounter for follow-up ultrasound of anatomy Procedures US OB GROWTH/DATING > 14WEEKS Birgit Wood MD [address] [place] [address] [address] [place] [address] Phone: tel: fax: Referral ID Status Reason Start Date Expiration Date V isits Requested Visits Authorized [id number] New Request 12/30/2024 01/24/2026 1 1 Reason Comments New Patient Evaluation Specialty Diagnoses / Procedures Referred By Contac t Referred To Contact Echocardiology Diagnoses resulting from in vitro fertilization, antepartum Procedures ECHOCARDIOGRAM, Raquel Lainez MD [address] [facility] [address] [place] [address] Phone: tel: fax: Referral ID Status Reason Start Date Expiration Date Visits Re quested Visits Authorized [id number] Closed 02/18/2025 1 1 Reason Comments Routine Visit Goals (unrecognized section and content) Goals may [...] BE BASED ON THE PRIMARY CLINICAL RECORDS. [facility] [employer] provides no warranty or guarantee of the accuracy or completeness of information in this document.
[2025-03-05 22:06] LABS: Hematocrit 27.5 % (37-47); Hemoglobin 9.6 g/dL (12.0-15.0); Immature Granulocytes Count 0.070 X10^3/uL (0.0-0.0); Mean Corp Hgb Conc 34.9 g/dL (32-36); Mean Corpuscular Volume 90.5 fL (81-99); Mean Platelet Vol. 10.7 fl (6.2-12.0); NRBC Flagged by Analyzer 0 % (0-5); Platelet Count 252 K/mm3 (150-450); RBC Distribution Width CV 13.6 % (11.6-14.6); RBC Distribution Width SD 44.5 fl (35.1-43.9); Red Blood Count 3.04 M/mm3 (4.2-5.4); White Blood Count 14.4 K/mm3 (4.4-11.0)
[2025-03-05 22:19] LABS: AST(SGOT) 28 U/L (<=31); Alanine Aminotransfer ALT/SGPT 17 U/L (<=34); Albumin, Serum 3.4 g/dL (3.5-5.0); Alkaline Phosphatase 69 U/L (35-104); Anion Gap 15 (5-15); BUN 12 mg/dL (4-19); BUN/Creat Ratio 8.0 RATIO (10-20); Calcium,Total 8.7 mg/dL (7.6-11.0); Carbon Dioxide 18.0 mmol/L (21.0-32.0); Chloride 104 mmol/L (98-108); Estimated Creatinine Clearance 53.79 ml/min (50-250); Globulin 2.8 g/dL (2.2-4.2); Glucose 104 mg/dL (70-99); Lipase 33 U/L (13-75); Potassium 2.9 mmol/L (3.3-5.1)
--- NOTE | 2025-03-05 22:59 | CT_ITS ---
PROCEDURE: CT ABDOMEN/PELVIS W IV CONT ONLY 03/05/2025 REASON FOR EXAM: ABD PAIN CONSTIPATION VS OBSTRUCTION TECHNIQUE: Procedure Code: [id number] Modality: CT Procedure: ABDOMEN/PELVIS W IV CONT ONLY Coronal and Sagittal reconstruction series were provided. CONTRAST: Isovue 370 VOLUME: 97 mL One or more dose reduction techniques were used (e.g., Automated exposure control, adjustment of the mA and/or kV according to patient size, use of iterative reconstruction technique. RADIATION DOSE SUMMARY: DLP: 988.31 mGycm COMPARISON: Abdominal CT 01/03/2021. FINDINGS: Lung bases: Clear. Liver: Unremarkable. Gallbladder: Unremarkable. Spleen: Unremarkable. Pancreas: Unremarkable. Adrenals: Unremarkable. Kidneys/Bladder: Severe bilateral hydroureteronephrosis, likely related to compression at the ureterovesicular junctions due to . Urinary bladder is compressed anteriorly. There may also be a component of bladder outlet obstruction/urinary retention. Reproductive Organs: Gravid uterus with single intrauterine gestation. The placenta is posterior and low-lying and approaches the cervical region, and may have a component of placenta previa. Bowel: There is a Henson antegrade continence enema tube in place within the anterior cecum. No evidence of bowel obstruction or active inflammatory process. Large colonic stool burden suggesting constipation. Appendix not definitively identified but there are no pericecal inflammatory changes. Lymph nodes: No enlarged abdominopelvic lymph nodes. Vasculature: Normal course and caliber of the abdominal aorta. Peritoneum / Retroperitoneum: No drainable ascites or free air. Bones: No significant abnormality. CT/Abdomen/Pelvis W IV Cont ONLY IMPRESSION: 1. Gravid uterus, single intrauterine gestation reportedly aged 28 weeks. [place] the placenta is posterior and low-lying approaching the cervical region, and there may be a component of placenta previ a. This can be further evaluated on routine ultrasound. 2. Severe bilateral hydroureteronephrosis likely secondary to reflux or josefina jovanni at the ureterovesicular junctions due to . Urinary bladder is compressed anteriorly. 3. Constipation. MACE tube within the cecum. No evidence of bowel obstruction . Reading Location: [facility]
[2025-03-05 23:02] VITALS: BP 118/70; PULSE 70; RESP 14; O2SAT 99
[2025-03-05] MEDS: 0.9% Normal Saline (1000mL) 1,000 ML 999 ML IV (23:35)
[2025-03-05] MEDS: Potassium Chloride 10mEq/100mL 10 MEQ/100 ML IV.SOLN. 100 MEQ IV BOLUS (23:46)
[2025-03-06] VITALS (10 sets, daily range): BP systolic 101–129; BP diastolic 57–85; PULSE 76–109; RESP 13–18; TEMP 36.6–36.7; O2SAT 94–100; BMI 30.7
--- OUTSIDE RECORDS SUMMARY | 2025-03-06 00:22 | XMS RPT_ITS | CCD ---
Author Organization [facility] Care Team Providers Care Vault Service Mechanic Name Role Phone MERLIN CALDERA Attending Unavailable MERLIN CALDERA Primary Care Unavailable MERLIN CALDERA Admitting Unavailable Malys DO Imani Gary Primary Care Provider MalImani gregg DO Primary Care Provider [phone] Imani Helm DO Primary Care Provider [phone] Malmarysol DOClarea Gary Primary Care Provider SOREN SEBASTIAN Referring Unavailabl e SOREN SEBASTIAN Attending Unavailabl e MALYS, IMANI A Primary Care Unavailable CENE AUTOMATION MACHINE OPERATOR~[id number], CENDoe Tuttle Admitting Unavailable CENE AUTOMATION MACHINE OPERATOR~[id number], EDINSON Tuttle Attending Unavailable MALYS, IMANI A Primary Care Unavailable ISRRAEL MART~[id number], ISRRAEL Dean Admitting Unavailable ISRRAEL MART~[phone], ISRRAEL Dean Attending Unavailable MARONI SOIL TECHNICIAN, MELVIN L Consulting Unavaila ble MALYS, IMANI A Primary Care Unavailable MARONI SOIL TECHNICIAN, MELVIN L Consulting Unavaila ble LEONIE MART, ISIDRA Consulting Unavailable LEONIE MART, ISIDRA Consulting Unavailable MALYS, IMANI A Primary Care Unavailable DUDZIAK, STUART Referring Unavailable MALYS, IMANI A Primary Care Unavailable DUDZIAK, STUART Referring Unavailable DUDZIAK, STUART Referring Unavailable MALYS, IMANI A Primary Care Unavailable MALYS, IMANI A Primary Care Unavailable DUDZIAK, STUART Referring Unavailable Malys, Imani A Primary Care Provider [phone] Dr. Imani Helm DO Primary Care Provider Dr. Imani Helm DO Referring Provider Beatriz MART, Dr. Bright Attending Provider Dr. Iman Jolley DO Attending Provider Beatriz MART, Dr. Bright Referring Provider [phone] Yuliet TOOL CRIB ATTENDANT-C, Jesse Attending Provider [phone] Pioneer TOOL CRIB ATTENDANT-C, Jesse Referring Provider [phone] MALYS, IMANI A Primary Care Unavailable SANTIAGO [...] Beatriz MART, Dr. Bright Attending Provider [phone] Malys, Imani Primary Care Unavailable Vande Iman [...] Care Unavailable Malys, Imani Referring Unavailable Yuliet TOOL CRIB ATTENDANTJesse Attending Unavailable Malys, Imani Primary Care Unavailable [...] Attending Unavailable Malys, Imani Primary Care Unavailable Pioneer TOOL CRIB ATTENDANT, Jesse Referring Unavailable Yuliet TOOL CRIB ATTENDANT, Jesse Attending Unavailable Marcanthony, Kaila Attending Unavailable [...] Allergy 1 Other: See Emani, Isaura Mckeon [facility] (1 source) Ampicillin Drug Allergy [facility] Repository (1 source) Ampicillin Drug Allergy [facility] Medications Current Medications Medication Drug Class(es) Dates Sig (Normalized) Sig (Original) amphetamine aspartate 5 mg / amphetamine sulfate 5 mg / dextroamphetamine saccharate 5 mg / dextroamphetamine sulfate 5 mg oral tablet (20 sources) Central Nervous System Stimulant Start: 02-03-2025 dextroamphetamin e-amphetamine 20 mg tablet (Adderall) [None received] 02/03/2025 Active take 1 capsule by md ut once daily amphetamine-dextroamphetamine XR 15 MG [...] enema TAKING WITH 500ML WATER Active Lacto No.94-Qcadgn-Mvb-Larch 25B cell-25B cell-50 mg capsule (12 sources) Start: 10-14-2024 Lacto No.76-Bi zojl-Myo-Lfqxd 25B cell-25B cell-50 mg capsule Active NMA [...] capsule by mouth once daily. Active Multivit 72-Ccsa-Hkuchf 1-Dh a (Pnv-Dha) 27 mg iron-1 mg [...] Units by mouth once daily. chorionic gonadotropin 06867 unt/ml injectable solution (20 sources) Gonadotropin Start: 023 inject 96636 [IU] by subcutaneous injection once chorionic gonadotropin (PREGNYL) 10,000 unit solr 10,000 Units as directed. Mix vials as directed per nursing in office. Administer subcutaneous. 2 Each 1 08/28/2022 Active Start: 04-11-2022 End: 08-11-2022 inject 46404 [IU] by subcutaneous injection once chorionic gonadotropin [...] Comment on above: Take 2 tablets by [facility] once daily. doxycycline hyclate 100 mg oral tablet (20 sources) Tetracycline-class Drug Start: 12-27-19 End: 08-11-19 take 1 tablet by mouth twice daily doxycycline (VIBRA-TABS) 100 mg tablet Take 1 tablet by mouth twice daily. 8 tablet 0 12/26/2021 08/11/2022 Discontinued Comment on above: Take [address] [facility] twice daily. estradiol 2 mg [...] Comment on above: Take 3 tablets by [facility] once daily. Ethinyl Estradiol / ethynodiol (20 sources) Progestin, Estrogen Start: 07-06-2022 take 1 tablet by mouth once daily ethynodiol diacetate-ethinyl estradiol 1 mg-35 mcg (ZOVIA 1/35E, 28,) 1-35 mg-mcg per tablet Take 1 tablet by mouth once daily. 28 tablet 0 07/06/2022 Suspended Start: 07-06-2022 take [address] [facility] once daily ethynodiol diacetate-ethinyl estradiol 1 mg-35 [...] as directed. For low dose HCG Pregnyl 85277 units with 5ml syringe and needle to mix and 15 insulin syringes. 1 Each 0 08/28/2022 Active Start: 08-28-2022 Sharps Contain er-Ins Syrng-Ndl 1/2 mL 30 x 1/2 syrg 1 Container as directed. Pregnyl trigger 44615 Units #1 with syringes and needles. 1 Each 0 08/28/2022 Active Comment on above: 1 Container as direc jose ramon. For low dose HCG Pregnyl 53112 units with 5ml syringe and needle to mix and 15 insulin syringes. 1 Container as direc jose ramon. Pregnyl trigger 35705 Units #1 with syringes and needles. sodium [...] assess feasibility. 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; Translations: [OTH GROUP HOME CURRENT DRUG THERAPY] Onset: 11-13-2023 Episodic Other [...] Episodic Comment on above: , WES 05/27/25, Johnny([facility] Web Marketing Assistant) PRR , WES , boy Johnny([facility] Web Marketing Assistant) DOC ONLY PRR , WES 05/27/25, boy Johnny([facility] Web Marketing Assistant) Other complications of (20 sources) Advanced maternal [...] 100gon 0 02-25-2025 GEST GTT 100gm Normal [facility] Comment on above: Order Comment: Y [...] BTS, L3890.6102, L509.8002, L3890.6006, L506.0400, L501.9520 #### [facility] [address] [place], [place], [id number] CBC W/Diff, Automatedon 09-0 Absolute Lymph 1.48 X10 3/uL Normal 0.83-4.51 [facility] Comment on above: Performed By: #### L 509.4006, L3890.6301, L100.0100, BTS, L3890.6102, L509.8002, L3890.6006, L506.0400, L501.9520 #### [facility] [address] [place], [address] Absolute Neut 8.7 X10 3/uL High 2.0-7.7 [facility] Comment on above: Performed By: #### L 509.4006, L3890.6301, L100.0100, BTS, L3890.6102, L509.8002, L3890.6006, L506.0400, L501.9520 #### [facility] [address] [place], [address] Basophils/100 WBC (Bld) 0.4 % Normal 0-1 [facility] Comment on above: Performed By: #### L 509.4006, L3890.6301, L100.0100, BTS, L3890.6102, L509.8002, L3890.6006, L506.0400, L501.9520 #### [facility] [address] [place], [address] Eosinophils/100 WBC (Bld) 1.2 % Normal 0-5 [facility] Comment on above: Performed By: #### L 509.4006, L3890.6301, L100.0100, BTS, L3890.6102, L509.8002, L3890.6006, L506.0400, L501.9520 #### [facility] [address] [place], [address] Erythrocyte distribution width (RBC) [Ratio] 13.5 % Normal 11.6-14.6 [facility] Comment on above: Performed By: #### L 509.4006, L3890.6301, L100.0100, BTS, L3890.6102, L509.8002, L3890.6006, L506.0400, L501.9520 #### [facility] [address] [place], [address] Hematocrit (Bld) [Volume fraction] 32.5 % Low 37-47 [facility] Comment on above: Performed By: #### L 509.4006, L3890.6301, L100.0100, BTS, L3890.6102, L509.8002, L3890.6006, L506.0400, L501.9520 #### [facility] [address] [place], [address] Hemoglobin (Bld) [Mass/Vol] 11.0 g/dL Low 12.0-15.0 [facility] Comment on above: Performed By: #### L 509.4006, L3890.6301, L100.0100, BTS, L3890.6102, L509.8002, L3890.6006, L506.0400, L501.9520 #### [facility] [address] [place], [address] IG% 0.500 Normal 0.0-0.9 [facility] Comment on above: Result Comment: IG% - Immature Granulocytes (promyelocytes, myelocytes and metamyelocytes) > 1% indicates that a LEFT SHIFT is Present. Performed By: #### L 509.4006, L3890.6301, L100.0100, BTS, L3890.6102, L509.8002, L3890.6006, L506.0400, L501.9520 #### [facility] [address] [place], [address] Lymphocytes/100 WBC (Bld) 13.6 % Low 19-41 [facility] Comment on above: Performed By: #### L 509.4006, L3890.6301, L100.0100, BTS, L3890.6102, L509.8002, L3890.6006, L506.0400, L501.9520 #### [facility] [address] [place], [address] MCH (RBC) [Entitic mass] 31.3 pg Normal 27.0-32.0 [facility] Comment on above: Performed By: #### L 509.4006, L3890.6301, L100.0100, BTS, L3890.6102, L509.8002, L3890.6006, L506.0400, L501.9520 #### [facility] [address] [place], [address] MCHC (RBC) [Mass/Vol] 33.8 g/dL Normal 32-36 [facility] Comment on above: Performed By: #### L 509.4006, L3890.6301, L100.0100, BTS, L3890.6102, L509.8002, L3890.6006, L506.0400, L501.9520 #### [facility] [address] [place], [address] MCV (RBC) [Entitic vol] 92.3 fL Normal 81-99 [facility] Comment on above: Performed By: #### L 509.4006, L3890.6301, L100.0100, BTS, L3890.6102, L509.8002, L3890.6006, L506.0400, L501.9520 #### [facility] [address] [place], [address] Monocytes/100 WBC (Bld) 4.5 % Normal 0-10 [facility] Comment on above: Performed By: #### L 509.4006, L3890.6301, L100.0100, BTS, L3890.6102, L509.8002, L3890.6006, L506.0400, L501.9520 #### [facility] [address] [place], [address] Neutrophils/100 WBC (Bld) 79.8 % High 47-70 [facility] Comment on above: Performed By: #### L 509.4006, L3890.6301, L100.0100, BTS, L3890.6102, L509.8002, L3890.6006, L506.0400, L501.9520 #### [facility] [address] [place], [address] Nucleated RBC (Bld) [#/Vol] 0 10*3/uL Normal 0-5 [facility] Comment on above: Performed By: #### L 509.4006, L3890.6301, L100.0100, BTS, L3890.6102, L509.8002, L3890.6006, L506.0400, L501.9520 #### [facility] [address] [place], [address] Platelet mean volume (Bld) [Entitic vol] 11.2 fL Normal 6.2-12.0 [facility] Comment on above: Performed By: #### L 509.4006, L3890.6301, L100.0100, BTS, L3890.6102, L509.8002, L3890.6006, L506.0400, L501.9520 #### [facility] [address] [place], [address] Platelets (Bld) [#/Vol] 261 10*3/uL Normal 150-450 [facility] Comment on above: Performed By: #### L 509.4006, L3890.6301, L100.0100, BTS, L3890.6102, L509.8002, L3890.6006, L506.0400, L501.9520 #### [facility] [address] [place], [address] RBC (Bld) [#/Vol] 3.52 10*6/uL Low 4.2-5.4 [facility] Comment on above: Performed By: #### L 509.4006, L3890.6301, L100.0100, BTS, L3890.6102, L509.8002, L3890.6006, L506.0400, L501.9520 #### [facility] [address] [place], [address] RDW SD 45.1 fl High 35.1-43.9 [facility] Comment on above: Performed By: #### L 509.4006, L3890.6301, L100.0100, BTS, L3890.6102, L509.8002, L3890.6006, L506.0400, L501.9520 #### [facility] [address] [place], [place], [address] WBC (Bld) [#/Vol] 10.9 10*3/uL Normal 4.4-11.0 [facility] Comment on above: Performed By: #### L 509.4006, L3890.6301, L100.0100, BTS, L3890.6102, L509.8002, L3890.6006, L506.0400, L501.9520 #### [facility] [address] [place], [place], [address] Glucose Challenge Gest 1H 50 trudi 02-19-2025 GLU GEST 50g 1H 152 mg/dL High 70-140 [facility] Comment on above: Performed By: #### L 509.4006, L3890.6301, L100.0100, BTS, L3890.6102, L509.8002, L3890.6006, L506.0400, L501.9520 #### [facility] [address] [place], [place], [address] HIVon 02-19-2025 HIV Non-Reactive Normal Nonreactive [facility] Comment on above: Result Comment: Non- Reactive Reactive Repeatedly reactive samples must be confirmed according to CDC recommended confirmatory algorithms. The subresults for either HIVAG or AHIV can be used as an aid in the selection of the confirmation algorithm for reactive samples. Send out specimens with Reactive results to [facility] for confirmation. Order the HIV antibody detection and differentiation: lc#[id number] Performed By: #### L 509.4006, L3890.6301, L100.0100, BTS, L3890.6102, L509.8002, L3890.6006, L506.0400, L501.9520 #### [facility] [place], [address] Tanning Solution Maker Office Visit Reporton 02-19-2025 Tanning Solution Maker Office Visit Report [facility] [address], [address] [place] [address] OFFICE VISIT Date of Service: 02/19/25 MR#: [id number] Acct: [id number] Name: LATONYA RODARTE Rep #: [id number] : 1985 Provider: Dr. Kaila cali MD Age/Sex: 39/F Location: [facility] Status: Signed Intake Vital Signs 11/18/24 14:11 01/20/25 15:41 02/19/25 09:08 Height 5 ft 4 in 5 ft 4 in 5 ft 4 in Weight: 177 lb 3 oz BMI 30.4 BP 135/77 H Intake Visit Reasons: 26 WK OB *DOC ONLY Migration Agent Required: No Is patient in pain?: No Allergies ampicillin Allergy (Verified 02/19/25 09:10) Hives Medications ???Medication ???Instructions ???Recorded ???Confirmed ???Type Lactobacillus 25 billion cap PO 10/14/24 02/19/25 History cell-Bifido 25 billion foae-NKC-ttxpc capsule aspirin 81 mg tablet,delayed 81 mg [...] 3-4 times per week duration: 15-30 minutes/day sotero/hoahaoism: None seatbelt use: always do you feel safe at home: Yes 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 ?-???-???-???-???-??? (more content not included)... Normal [facility] Syphilis Antibodieson 2024 Syphilis Abs Non-Reactive Normal Nonreactive [facility] Comment on above: Performed By: #### L 509.4006, L3890.6301, L100.0100, BTS, L3890.6102, L509.8002, L3890.6006, L506.0400, L501.9520 #### [facility] [address] [place], [address] ECHOCARDIOGRAM, FETALon 08-2 SUMMARY: 1. No structural heart abnormalities. 2. Normal segmental cardiac anatomy. 3. No valve abnormalities. 4. Normal biventricular size and function. 5. Normal cardiac rate and rhythm. 6. Normal echocardiogram. CARDIOLOGY ECHOCARDIOGRAM REPORT Pt. Name: LATONYA RODARTE Study Date: 02/09/2025 Study Time: 1:40:12 PM eMPI#: [id number] Date: 1985 Patient Age: 39 years Pt. Gender: F Exam Site: [facility] Outside Referrring Physician: [id number] RAQUEL LAINEZ [employer] Skilled Maintenance Supervisor: Sofia Vincent Interpreting Fellow: Ashley Dia Interpreting [...] patent foramen ovale or patent ductus arteriosus. Parks's Name: Lyn Arguelles cc report (more content not included)... [facility] OB ultrasound panelon 2024 - OBSTETRICS REPORT (Signed Final 01/22/2025 01:53 pm) - PATIENT INFO: ID #: [id number] : [birth year] (39 yrs)(F) Name: LATONYA RODARTE Visit Date: 01/22/2025 12:55 pm - PERFORMED BY: Performed By: Paris Sevilla MS, RDMS, RVT Attending: Yudy Ashley MD Referred By: Raquel Lainez MD Ref. Address: [address] [place] [address] Secondary Phy.: Iman Jackson DO Address: , Location: [place] - SERVICE(S) PROVIDED: Follow-up 49595 - INDICATIONS: Encounter for follow-up ultrasound of [...] weeks given AMA. Reviewed perinatology consultation at [facility] [place] and agreement with 37wk delivery to help coordinate surgical team and avoid labor. - RECOMMENDATIONS: Thank you for asking us to see LATONYA RODARTE. I personally viewed and interpreted these images and I have approved this report. A copy of this report will be sent to Raquel Lainez MD. Our ultrasound lab is accredited by [employer] ([employer]). If you would like to discuss your patient's results, please do not hesitate to contact us at [phone]. ------- (more content not included)... RADIOLOGY System, Provider Not In - 01/22/2025 - OBSTETRICS REPORT (Signed Final 01/22/2025 01:53 pm) - PATIENT INFO: ID #: [id number] : [birth year] (39 yrs)(F) Name: LATONYA RODARTE Visit Date: 01/22/2025 12:55 pm - PERFORMED BY: Performed By: Paris Sevilla MS, RDMS, RVT Attending: Yudy Ashley MD Referred By: Raquel Lainez MD Ref. Address: [address] [place] [address] Secondary Phy.: Iman Jackson DO Address: , Location: [place] - SERVICE(S) PROVIDED: Follow-up 24912 - INDICATIONS: Encounter for follow-up ultrasound of [...] weeks given AMA. Reviewed perinatology consultation at [place] and agreement with 37wk delivery to help coordinate surgical team and avoid labor. - RECOMMENDATIONS: Thank you for asking us to see LATONYA RODARTE. I personally viewed and interpreted these images and I have approved this report. A copy of this report will be sent to Raquel Lainez MD. Our ultrasound lab is accredited by [employer] [place] [employer] ([employer]UM). If you would like to discuss your patient's results, please do not hesitate to contact us at [phone]. - Yudy Ashley MD Electronically Signed Final Report 01/22/2025 01:53 pm - [facility] Radiology Study observation (narrative) [facility] OB ultrasound panelOrdered B y: Provider System on 01-22-2025 [facility] - Chemistry and C hemistry - challengeOrdered By: Iman Brenner on 01-20-2025 Glucose Ql (U) Negative [facility] - UrinalysisOrder ed By: Iman Jordin on 01-20-2025 Protein Ql (U) Negative [facility] Tanning Solution Maker Office Visit Reporton 01-20-2025 Tanning Solution Maker Office Visit Report [facility] [address], [address] [place] [address] OFFICE VISIT Date of Service: 01/20/25 MR#: [id number] Acct: [id number] Name: LATONYA RODARTE Rep #: [id number] : 1985 Provider: Dr. Iman Silverman DO Age/Sex: 39/F Location: [facility] Status: Signed Intake Vital Signs 11/13/24 08:10 11/18/24 14:11 12/24/24 11:50 01/20/25 15:40 01/20/25 15:41 Height 5 ft 4 in 5 ft 4 in 5 ft 4 in 5 ft 4 in 5 ft 4 in Weight: 177 lb 3 oz BMI 30.4 BP 113/68 Intake Visit Reasons: 22wk ob * DOC ONLY Migration Agent Required: No Is patient in pain?: No Allergies ampicillin Allergy (Verified 01/20/25 15:38) Hives Medications ???Medication ???Instructions ???Recorded ???Confirmed ???Type Lactobacillus 25 billion cap PO 10/14/24 01/20/25 History cell-Bifido 25 billion yzdy-AKA-vciae capsule aspirin 81 mg tablet,delayed 81 mg [...] 3-4 times per week duration: 15-30 minutes/day sotero/hoahaoism: None seatbelt use: always do you feel safe at home: Yes 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 Normal [facility] AFP MATERNAL SCREEN, NTD ONL Yon 12-30-2024 AFP 71.6 ng/mL Normal [facility] Comment on above: Performed By: #### A FPNTP #### [facility] (DEFAULT) [address] [place] [address] AFP ADDITIONAL COMMENTS DNR Normal [facility] Comment on above: Performed By: #### A FPNTP #### [facility] (DEFAULT) [address] [place] [address] AFP Interpretation SEE COMMENTS Normal [facility] Comment on above: Result Comment: RESU LT: Screen negative for neural tube defects. Performed By: #### A FPNTP #### [facility] (DEFAULT) [address] [place] [address]83 AFP MoM 1.57 MoM Normal <2.50 [facility] Comment on above: Performed By: #### A FPNTP #### [facility] (DEFAULT) [address] [place] [address]103 AFP RECOMMENDED FOLLOW UP None. Normal [facility] Comment on above: Performed By: #### A FPNTP #### [facility] [address] [place] [address] AFP RESULTS SUMMARY Normal risk Normal [facility] Comment on above: Performed By: #### A FPNTP #### [facility] (DEFAULT) [address] [place] [address]77 CALCULATED AGE AT WES 39 years Normal [facility] Comment on above: Performed By: #### A FPNTP #### [facility] (DEFAULT) [address] [place] [address] WES by LMP 05/27/2025 [facility] Comment on above: Performed By: #### A FPNTP #### [facility] (DEFAULT) [address] [place] [address] WES BY U/S SCAN DNR Normal [facility] Comment on above: Performed By: #### A FPNTP #### [facility] (DEFAULT) [address] [place] [address] 17563 Family History of NTD No Normal [facility] Comment on above: Performed By: #### A FPNTP #### [facility] (DEFAULT) [address] [place] [address]34 GA ON COLELCTION BY U/S SCAN DNR [facility] Comment on above: Performed By: #### A FPNTP #### [facility] (DEFAULT) [address] [place] [address] 13976 GA USED IN RISK ESTIMATE Dates estimate Normal [facility] Comment on above: Performed By: #### A FPNTP #### [facility] (DEFAULT) [address] [place] [address] 70705 Gestational Age Calculated at Collection 18,6 wk,d Normal [facility] Comment on above: Performed By: #### A FPNTP #### [facility] (DEFAULT) [address] [place] [address] 71306 Initial or Repeat Testing Initial testing Normal [facility] Comment on above: Performed By: #### A FPNTP #### [facility] (DEFAULT) [address] [place] [address]96 Insulin Depend Diabetic No Normal [facility] Comment on above: Performed By: #### A FPNTP #### [facility] (DEFAULT) [address] [place] [address] 15383 Maternal Date of 87 Normal [facility] Comment on above: Performed By: #### A FPNTP #### [facility] (DEFAULT) [address] [place] [address] 29030 MATERNAL WEIGHT (MWGT) DNR Normal [facility] Comment on above: Performed By: #### A FPNTP #### [facility] (DEFAULT) [address] [place] [address]772 NEURAL TUBE DEFECT RISK ESTIMATE 1/,400 Normal [facility] Comment on above: Performed By: #### A FPNTP #### [facility] (DEFAULT) [address] [place] [address] 40166 NUMBER OF CHORIONS Unknown Normal [facility] Comment on above: Performed By: #### A FPNTP #### [facility] (DEFAULT) [address] [place] [address] 36378 Number of Fetuses 1 Normal [facility] Comment on above: Performed By: #### A FPNTP #### [facility] (DEFAULT) [address] [place] [address] Patient Race: non-Black Normal [facility] Comment on above: Performed By: #### A FPNTP #### [facility] (DEFAULT) [address] [place] [address]70[address] Physician Phone [phone] Normal [facility] Comment on above: Performed By: #### A FPNTP #### [facility] (DEFAULT) [address] [place] [address] 63578 due to IVF? No Normal [facility] Comment on above: Performed By: #### A FPNTP #### [facility] (DEFAULT) [address] [place] [address] 08798 PREVIOUS PREGANCY W/ NEURAL TUBE DEFECT No Normal [facility] Comment on above: Performed By: #### A FPNTP #### [facility] (DEFAULT) [address] [place] [address]54 RECALCULATED MATERNAL SERUM SCREEN DNR [facility] Comment on above: Performed By: #### A FPNTP #### [facility] (DEFAULT) [address] [place] [address] Smoking Status non-Smoker [facility] Comment on above: Performed By: #### A FPNTP #### [facility] (DEFAULT) [address] [place] [address]6969 SPECIMEN COLLECTION DATE 12/30/24 [facility] Comment on above: Performed By: #### A FPNTP #### [facility] (DEFAULT) [address] [place] [address] 32837 TEST INFORMATION SEE COMMENTS [facility] Comment on above: Result Comment: This screening [...] and its performance characteristics determined by [facility] in a manner consistent with CLIA requirements. This test has not been cleared or approved by the U.S. Food and Drug Administration. Test Performed by: [facility] [address] [place] [address] Stubber: Shanice Shepherd Ph.D.; CLIA# [id number] Performed By: #### A FPNTP #### [facility] ([facility]) [address] [place] [address] OB ultrasound panelon 2024 - OBSTETRICS REPORT (Signed Final 12/30/2024 04:11 pm) - PATIENT INFO: ID #: [id number] : [birth year] (39 yrs)(F) Name: LATONYA RODARTE Visit Date: 12/30/2024 08:01 am - PERFORMED BY: Performed By: Paris Sevilla, MS, RDMS, RVT Attending: Birgit Wood MD Referred By: Raquel Lainez MD Ref. Address: [address] [place] [address] Secondary Phy.: Iman Jackson DO Address: , Location: [place] - SERVICE(S) PROVIDED: Detailed [id number] [facility] Transvaginal 09358 - INDICATIONS: Encounter for anatomic survey Z36 [...] Non-visualized Ductal Arch: Limited SVC: Limited Cardiac Stowell: (more content not included)... RADIOLOGY System, Provider Not In - 12/30/2024 - OBSTETRICS REPORT (Signed Final 12/30/2024 04:11 pm) - PATIENT INFO: ID #: [id number] : [birth year] (39 yrs)(F) Name: LATONYA RODARTE Visit Date: 12/30/2024 08:01 am - PERFORMED BY: Performed By: Paris Sevilla, MS, RDMS, RVT Attending: Birgit Wood MD Referred By: Raquel Lainez MD Ref. Address: [address] [place] [address] Secondary Phy.: Iman Jackson DO Address: , Location: [place] - SERVICE(S) PROVIDED: Detailed [id number] [facility] Transvaginal 35057 - INDICATIONS: Encounter for anatomic survey Z36 [...] Non-visualized Ductal Arch: Limited SVC: Limited Cardiac Stowell: Normal Diaphragm: Visualized LT and RT 3 [...] 05/27/2025. 2. Harika (more content not included)... [facility] Radiology Study observation (narrative) [facility] OB ultrasound panelOrdered B y: Provider System on 12-30-2024 [facility] Laboratory - Chemistry and C hemistry - challengeOrdered By: Iman Brenner on 12-24-2024 Glucose Ql (U) Negative [facility] Laboratory - UrinalysisOrder ed By: Iman Brenner on 12-24-2024 Protein Ql (U) Negative [facility] Tanning Solution Maker Office Visit Reporton 12-24-2024 Tanning Solution Maker Office Visit Report [facility]'s [address], [address] [place] [address] OFFICE VISIT Date of Service: 12/24/24 MR#: [id number] Acct: [id number] Name: LATONYA RODARTE Rep #: [id number] : 1985 Provider: Dr. Iman Silverman DO Age/Sex: 39/F Location: [facility] Status: Signed Intake Vital Signs 11/13/24 08:10 11/18/24 14:11 11/26/24 14:39 12/24/24 11:50 Height 5 ft 4 in 5 ft 4 in 5 ft 4 in 5 ft 4 in Weight: 171 lb BMI 29.3 BP 123/73 H Intake Visit Reasons: 18wk ob * DOC ONLY Migration Agent Required: No Is patient in pain?: No Feel stressed/tense/nervous/ anxious/difficulty sleeping: not at all Allergies ampicillin Allergy (Verified 12/24/24 11:50) Hives Medications ???Medication ???Instructions ???Recorded ???Confirmed ???Type Lactobacillus 25 billion cap PO 10/14/24 12/24/24 History cell-Bifido 25 billion nsam-PXY-hffup capsule aspirin 81 mg tablet,delayed 81 mg [...] 3-4 times per week duration: 15-30 minutes/day sotero/hoahaoism: None seatbelt use: always do you feel safe at home: Yes 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 ?- (more content not included)... Normal [facility] T4 Free Directon 12-03-2024 T4 FREE DIRECT 1.10 ng/dL Normal 0.76-1.46 [facility] Comment on above: Performed By: #### L 509.4006, L3890.6301, L100.0100, BTS, L3890.6102, L509.8002, L3890.6006, L506.0400, L501.9520 #### [facility] [address] [place], [place], [id number] T4 freeOrdered By: Iman Brenner on 12-03-2024 Free T4 [Mass/Vol] 1.10 ng/dL 0.76-1.46 [facility] TSH DL <= 0.005 mIU/L QnOrde red By: Iman Brenner on 12-03-2024 TSH Qn 1.370 uIU/mL 0.300-4.200 [facility] Thyroid Stim Hormone (TSH)on 12-03-2024 TSH 1.370 uIU/mL Normal 0.300-4.200 [facility] Comment on above: Performed By: #### L 506.0400, L501.9520 #### [facility] [address] [place], [place], [address] Laboratory - Chemistry and C hemistry - challengeOrdered By: Iman Brenner on 11-26-2024 Glucose Ql (U) Negative [facility] - UrinalysisOrder ed By: Iman Brenner on 11-26-2024 Protein Ql (U) Negative [facility] Tanning Solution Maker Office Visit Reporton 11-26-2024 Tanning Solution Maker Office Visit Report [address], [address] [place] [address] OFFICE VISIT Date of Service: 11/26/24 MR#: [id number] Acct: [id number] Name: CAYDENLATONYAGary DIAZ Rep #: [id number] : 1985 Provider: Dr. Iman Silverman DO Age/Sex: 39/F Location: [facility] Status: Signed Intake Vital Signs 01/26/21 17:03 11/18/24 14:11 11/26/24 14:39 11/26/24 14:39 Height 5 ft 4 in 5 ft 4 in 5 ft 4 in 5 ft 4 in Weight: 172 lb BMI 29.5 BP 109/73 Intake Visit Reasons: 14wk OB * DOC ONLY Migration Agent Required: No Is patient in pain?: No Allergies ampicillin Allergy (Verified 11/26/24 14:38) Hives Medications ???Medication ???Instructions ???Recorded ???Confirmed ???Type Lactobacillus 25 billion cap PO 10/14/24 11/26/24 History cell-Bifido 25 billion chuk-DWO-npqfj capsule aspirin 81 mg tablet,delayed 81 mg [...] 3-4 times per week duration: 15-30 minutes/day sotero/hoahaoism: None seatbelt use: always do you feel safe at home: Yes 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 (more content not included)... Normal [facility] Urine Cultureon 11-22-2024 URC RESULTS CALLED TO VIVIANA Tellez 11/21/24 0911 Nolvia Leon. REPORT READ BACK BY . Urine Culture Copy of report sent to Infection Control Printer [id number] 11/21/24 0911 [facility]. ESBL Escherichia coli [place] Count 80,000-100,000 MARKER ESBL producing OrganismA MARKER ESBL producing OrganismA [place] Count 50,000-80,000 Enterococcus faecalis Ampicillin Islt MARIAMA [...] S Vancomycin Islt MARIAMA 2 S Normal [facility] Comment on above: Performed By: #### L 509.4006, L3890.6301, L100.0100, BTS, L3890.6102, L509.8002, L3890.6006, L506.0400, L501.9520 #### [facility] [address] [place], [address] Progress Noteon 11-21-2024 Fishery Biologist Authentication Interface Message Text [facility] [...] Insecurity: No Food Insecurity (04/10/2024) Received from [facility] Hunger Vital Sign Worried About Running Out of Food in the Last Year: Never true Ran Out of Food in the Last Year: Never true Transportation Needs: No Transportation Needs (04/10/2024) Received from [facility] PRAPARE - Transportation Lack of Transportation (Medical): No Lack of Transportation (Non-Medical): No Housing Stability: Low Risk (04/10/2024) Received from [facility] Housing Stability Vital Sign Unable to [...] 2d with an WES of 05/27/2025. 2. [place] rump length measurement is consistent with established [...] primary surgical (more content not included)... Normal [facility] Laboratory - Chemistry and C hemistry - challengeOrdered By: Jesse Horvath on 11-18-2024 Bilirubin Ql (U) Negative [facility] Glucose Ql (U) Negative [facility] Ketones Ql (U) Negative [facility] pH (U) 5 [pH] [facility] Specific gravity (U) [Rel density] 1.015 [facility] Urobilinogen (U) [Mass/Vol] Negative [facility] Laboratory - Hematology and Cell countsOrdered By: Jesse Horvath on 11-18-2024 Hemoglobin Ql (U) Negative [facility] Laboratory - Specimen inform ationOrdered By: Jesse Horvath on 11-18-2024 Clarity (U) Clear [facility] Color (U) YELLOW [facility] Laboratory - UrinalysisOrder ed By: Jesse Horvath on 11-18-2024 Nitrite Ql (U) Negative [facility] Protein Ql (U) Negative [facility] No Panel InformationOrdered By: Jesse Horvath on 11-18-2024 Urine Leukocytes Negatve [facility] Urine Non-Hemolyzed Blood [facility] Tanning Solution Maker Office Visit Reporton 11-18-2024 Tanning Solution Maker Office Visit Report [facility] [address], [address] [place] [address] OFFICE VISIT Date of Service: 11/18/24 MR#: [id number] Acct: [id number] Name: LATONYA RODARTE Rep #: [id number] : 1985 Provider: FERNANDO monet Age/Sex: 39/F Location: [facility] [place] Status: Signed Intake Vital Signs 11/13/24 08:10 11/18/24 14:11 Height 5 ft 4 in 5 ft 4 in Weight: 171 lb BMI 29.3 BP 126/75 H Intake Visit Reasons: UTI check Chief Complaint: UTI Check Migration Agent Required: No Is patient in pain?: No Allergies ampicillin Allergy (Verified 11/18/24 14:11) Hives Medications ???Medication ???Instructions ???Recorded ???Confirmed ???Type Lactobacillus 25 billion cap PO 10/14/24 11/18/24 History cell-Bifido 25 billion xfkp-ISM-azpfl capsule aspirin 81 mg tablet,delayed 81 mg [...] 3-4 times per week duration: 15-30 minutes/day sotero/hoahaoism: None seatbelt use: always do you feel safe at home: Yes 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 Normal [facility] Transvaginal w/Preg USon Transvaginal w/Preg US [facility] [address] [place] [address] Transvaginal w/Preg US MR#: [id number] Acct: [id number] Name: LATONYA RODARTE Rep #: [id number] : 1985 F 39 From: Glenda White PCP: Dr. Imani Helm, DO Status: REG CLI Study: Transvaginal w/Preg US Date of Exam: 11/18/24 Exam# [id number] Ordering Dr: Jesse Horvath TOOL CRIB ATTENDANT TOOL CRIB ATTENDANT -C PROCEDURE: TRANSVAGINAL W/PREG US 11/18/2024 REASON [...] ovaries are not well seen. Reading Location: [id number] CC: FERNANDO Horvath; Dr. Imani Helm DO Social Work Supervisor: Signed Normal [facility] Urine cultureOrdered By: Lesley Horvath on 11-18-2024 Bacteria identified Cx Nom (U) ESBL Escherichia coli Abnormal [facility] Bacteria identified Cx Nom (U) Enterococcus faecalis Abnormal [facility] Tanning Solution Maker Office Visit Reporton 11-13-2024 Tanning Solution Maker Office Visit Report [facility] [address], [address] [place] [address] OFFICE VISIT Date of Service: 11/13/24 MR#: [id number] Acct: [id number] Name: LATONYA RODARTE Rep #: [id number] : 1985 Provider: Dr. Kaila cali MD Age/Sex: 39/F Location: [facility] [place] Status: Signed Intake Vital Signs 10/30/24 09:10 11/06/24 14:14 11/13/24 08:10 Height 5 ft 4 in 5 ft 4 in 5 ft 4 in Weight: 167 lb 2 oz BMI 28.7 BP 109/64 Intake Visit Reasons: 12 wk ob Migration Agent Required: No Is patient in pain?: No Allergies ampicillin Allergy (Verified 11/13/24 08:12) Hives Medications ???Medication ???Instructions ???Recorded ???Confirmed ???Type Lactobacillus 25 billion cap PO 10/14/24 11/13/24 History cell-Bifido 25 billion nrbg-ZZU-xlaqe capsule aspirin 81 mg tablet,delayed 81 mg [...] 3-4 times per week duration: 15-30 minutes/day sotero/hoahaoism: None seatbelt use: always do you feel safe at home: Yes 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 ?-???-???-???-??? (more content not included)... Normal [facility] Urine Cultureon 11-07-2024 URC Culture exhibits no growth. Normal [facility] Comment on above: Performed By: #### L 509.4006, L3890.6301, L100.0100, BTS, L3890.6102, L509.8002, L3890.6006, L506.0400, L501.9520 #### [facility] [address] [place], [address] Tanning Solution Maker Office Visit Reporton 11-06-2024 Tanning Solution Maker Office Visit Report [facility] [address], [address] [place] [address] OFFICE VISIT Date of Service: 11/06/24 MR#: [id number] Acct: [id number] Name: LATONYA RODARTE Rep #: [id number] : 1985 Provider: Dr. Kaila cali MD Age/Sex: 39/F Location: [facility] [place] Status: Signed Intake Vital Signs 10/30/24 09:10 11/06/24 14:08 11/06/24 14:14 Height 5 ft 4 in 5 ft 4 in 5 ft 4 in Weight: 172 lb 2 oz BMI 29.5 BP 102/70 Intake Visit Reasons: Repeat Urine Culture Chief Complaint: Urine Culture Migration Agent Required: No Is patient in pain?: No Allergies ampicillin Allergy (Verified 11/06/24 14:04) Hives Medications ???Medication ???Instructions ???Recorded ???Confirmed ???Type Lactobacillus 25 billion cap PO 10/14/24 11/06/24 History cell-Bifido 25 billion ihmo-BYC-umxax capsule aspirin 81 mg tablet,delayed 81 mg [...] 3-4 times per week duration: 15-30 minutes/day sotero/hoahaoism: None seatbelt use: always do you feel safe at home: Yes 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 (more content not included)... Normal [facility] Urine cultureOrdered By: Bk Henderson on 11-06-2024 Bacteria identified Cx Nom (U) Culture exhibits no growth. [facility] Absolute lymphocyte countOrd ered By: Kaila Hsuivanna on 10-30-2024 Lymphocytes Auto (Unsp spec) [#/Vol] 2.06 10*3/uL 0.83-4.51 [facility] Absolute neutrophil countOrd ered By: Kaila Hsuivanna on 10-30-2024 Neutrophils (Bld) [#/Vol] 5.6 10*3/uL 2.0-7.7 [facility] Automated lymphocyte count a s percentage of total leukocytesOrdered By: Kaila Hsuivanna on 10-30-2024 Lymphocytes/100 WBC Auto (Unsp spec) 24.3 % 19-41 [facility] Basophil percentageOrdered B y: Kaila Hsuivanna on 10-30-2024 Basophils/100 WBC (Bld) 0.6 % 0-1 [facility] CBC W/Diff, Automatedon 10-16 Absolute Lymph 2.06 X10 3/uL Normal 0.83-4.51 [facility] Comment on above: Performed By: #### L 509.4006, L3890.6301, L100.0100, BTS, L3890.6102, L509.8002, L3890.6006, L506.0400, L501.9520 #### [facility] [address] [place], [address] Absolute Neut 5.6 X10 3/uL Normal 2.0-7.7 [facility] Comment on above: Performed By: #### L 509.4006, L3890.6301, L100.0100, BTS, L3890.6102, L509.8002, L3890.6006, L506.0400, L501.9520 #### [facility] [address] [place], [address] Basophils/100 WBC (Bld) 0.6 % Normal 0-1 [facility] Comment on above: Performed By: #### L 509.4006, L3890.6301, L100.0100, BTS, L3890.6102, L509.8002, L3890.6006, L506.0400, L501.9520 #### [facility] [address] [place], [address] Eosinophils/100 WBC (Bld) 0.9 % Normal 0-5 [facility] Comment on above: Performed By: #### L 509.4006, L3890.6301, L100.0100, BTS, L3890.6102, L509.8002, L3890.6006, L506.0400, L501.9520 #### [facility] [address] [place], [address] Erythrocyte distribution width (RBC) [Ratio] 12.9 % Normal 11.6-14.6 [facility] Comment on above: Performed By: #### L 509.4006, L3890.6301, L100.0100, BTS, L3890.6102, L509.8002, L3890.6006, L506.0400, L501.9520 #### [facility] [address] [place], [address] Hematocrit (Bld) [Volume fraction] 41.8 % Normal 37-47 [facility] Comment on above: Performed By: #### L 509.4006, L3890.6301, L100.0100, BTS, L3890.6102, L509.8002, L3890.6006, L506.0400, L501.9520 #### [facility] [address] [place], [address] Hemoglobin (Bld) [Mass/Vol] 13.7 g/dL Normal 12.0-15.0 [facility] Comment on above: Performed By: #### L 509.4006, L3890.6301, L100.0100, BTS, L3890.6102, L509.8002, L3890.6006, L506.0400, L501.9520 #### [facility] [address] [place], [address] IG% 0.200 Normal 0.0-0.9 [facility] Comment on above: Result Comment: IG% - Immature Granulocytes (promyelocytes, myelocytes and metamyelocytes) > 1% indicates that a LEFT SHIFT is Present. Performed By: #### L 509.4006, L3890.6301, L100.0100, BTS, L3890.6102, L509.8002, L3890.6006, L506.0400, L501.9520 #### [facility] [address] [place], [address] Lymphocytes/100 WBC (Bld) 24.3 % Normal 19-41 [facility] Comment on above: Performed By: #### L 509.4006, L3890.6301, L100.0100, BTS, L3890.6102, L509.8002, L3890.6006, L506.0400, L501.9520 #### [facility] [address] [place], [address] MCH (RBC) [Entitic mass] 30.3 pg Normal 27.0-32.0 [facility] Comment on above: Performed By: #### L 509.4006, L3890.6301, L100.0100, BTS, L3890.6102, L509.8002, L3890.6006, L506.0400, L501.9520 #### [facility] [address] [place], [address] MCHC (RBC) [Mass/Vol] 32.8 g/dL Normal 32-36 [facility] Comment on above: Performed By: #### L 509.4006, L3890.6301, L100.0100, BTS, L3890.6102, L509.8002, L3890.6006, L506.0400, L501.9520 #### [facility] [address] [place], [address] MCV (RBC) [Entitic vol] 92.5 fL Normal 81-99 [facility] Comment on above: Performed By: #### L 509.4006, L3890.6301, L100.0100, BTS, L3890.6102, L509.8002, L3890.6006, L506.0400, L501.9520 #### [facility] [address] [place], [address] Monocytes/100 WBC (Bld) 7.9 % Normal 0-10 [facility] Comment on above: Performed By: #### L 509.4006, L3890.6301, L100.0100, BTS, L3890.6102, L509.8002, L3890.6006, L506.0400, L501.9520 #### [facility] [address] [place], [address] Neutrophils/100 WBC (Bld) 66.1 % Normal 47-70 [facility] Comment on above: Performed By: #### L 509.4006, L3890.6301, L100.0100, BTS, L3890.6102, L509.8002, L3890.6006, L506.0400, L501.9520 #### [facility] [address] [place], [address] Nucleated RBC (Bld) [#/Vol] 0 10*3/uL Normal 0-5 [facility] Comment on above: Performed By: #### L 509.4006, L3890.6301, L100.0100, BTS, L3890.6102, L509.8002, L3890.6006, L506.0400, L501.9520 #### [facility] [address] [place], [address] Platelet mean volume (Bld) [Entitic vol] 10.5 fL Normal 6.2-12.0 [facility] Comment on above: Performed By: #### L 509.4006, L3890.6301, L100.0100, BTS, L3890.6102, L509.8002, L3890.6006, L506.0400, L501.9520 #### [facility] [address] [place], [address] Platelets (Bld) [#/Vol] 320 10*3/uL Normal 150-450 [facility] Comment on above: Performed By: #### L 509.4006, L3890.6301, L100.0100, BTS, L3890.6102, L509.8002, L3890.6006, L506.0400, L501.9520 #### [facility] [address] [place], [address] RBC (Bld) [#/Vol] 4.52 10*6/uL Normal 4.2-5.4 [facility] Comment on above: Performed By: #### L 509.4006, L3890.6301, L100.0100, BTS, L3890.6102, L509.8002, L3890.6006, L506.0400, L501.9520 #### [facility] [address] [place], [address] RDW SD 43.1 fl Normal 35.1-43.9 [facility] Comment on above: Performed By: #### L 509.4006, L3890.6301, L100.0100, BTS, L3890.6102, L509.8002, L3890.6006, L506.0400, L501.9520 #### [facility] [address] [place], [address] WBC (Bld) [#/Vol] 8.5 10*3/uL Normal 4.4-11.0 [facility] Comment on above: Performed By: #### L 509.4006, L3890.6301, L100.0100, BTS, L3890.6102, L509.8002, L3890.6006, L506.0400, L501.9520 #### [facility] [address] [place], [place], [address] Eosinophil percentageOrdered By: Kaila Henderson on 10-30-2024 Eosinophils/100 WBC (Bld) 0.9 % 0-5 [facility] Erythrocyte distribution wid th ratioOrdered By: Kaila Henderson on 10-30-2024 Erythrocyte distribution width (RBC) [Ratio] 12.9 % 11.6-14.6 [facility] Erythrocyte distribution wid th standard deviationOrdered By: Kaila Henderson on 10-30-2024 Erythrocyte distribution width (RBC) [Ratio] 43.1 fl 35.1-43.9 [facility] HIVon 10-30-2024 HIV Non-Reactive Normal Nonreactive [facility] Comment on above: Result Comment: Non- Reactive Reactive Repeatedly reactive samples must be confirmed according to CDC recommended confirmatory algorithms. The subresults for either HIVAG or AHIV can be used as an aid in the selection of the confirmation algorithm for reactive samples. Send out specimens with Reactive results to [facility] for confirmation. Order the HIV antibody detection and differentiation: lc#[id number] Performed By: #### L 509.4006, L3890.6301, L100.0100, BTS, L3890.6102, L509.8002, L3890.6006, L506.0400, L501.9520 #### [facility] [address] [place], [address] Hematocrit Auto (Bld) [Volum e fraction]Ordered By: Kaila Henderson on 10-30-2024 Hematocrit (Bld) [Volume fraction] 41.8 % 37-47 [facility] Hemoglobin measurementOrdere d By: Kaila Henderson on 10-30-2024 Hemoglobin (Bld) [Mass/Vol] 13.7 g/dL 12.0-15.0 [facility] Hepatitis C Antibodyon 10-30 Hepatitis C Ab Non-Reactive Normal Nonreactive [facility] Comment on above: Result Comment: Reac tive: Presumptive evidence of antibodies to HCV. Follow CDC recommendations for supplemental testing. Non-Reactive: Antibodies to HCV were not detected; does not exclude the possibility of exposure to HCV Reactive Results are presumptive evidence of antibodies to HCV. Follow CDC recommendations for supplemental testing. Order confirmation testing: HCV Quant by PCR testing - HCVPCR lc#[id number] Non Reactive: < 0.8 Equivocal: >/= 0.8 to < 1.0 Reactive: >/= 1.0 The [facility] requires that a reactive/equivocal HCV antibody result be sent out for confirmation. HCV Quant by PCR testing. Performed By: #### L 509.4006, L3890.6301, L100.0100, BTS, L3890.6102, L509.8002, L3890.6006, L506.0400, L501.9520 #### [facility] [address] [place], [place], [address] Immature granulocytes/100 WB C Auto (Bld)Ordered By: Kaila Henderson on 10-30-2024 Immature granulocytes/100 WBC (Bld) 0.200 % 0.0-0.9 [facility] Comment on above: IG% - Immature Granu locytes (promyelocytes, myelocytes and metamyelocytes) > 1% indicates that a LEFT SHIFT is Present. L3890.6102on 10-30-2024 HEP B Surf Ag Non-Reactive Normal Nonreactive [facility] Comment on above: Result Comment: Reac tive: Presumptive evidence of HBV. Repeatedly reactive samples must be confirmed using a neutralization test ([employer] HBsAg Confirmatory Test) Non-Reactive: HBsAg not detected; does not exclude the possibility of exposure to HBV Performed By: #### L 509.4006, L3890.6301, L100.0100, BTS, L3890.6102, L509.8002, L3890.6006, L506.0400, L501.9520 #### [facility] [address] [place], [address] L509.4006on 10-30-2024 Rubella IgG REAC Normal Nonreactive [facility] Comment on above: Result Comment: Anti body Result: Interpretation Non-Reactive: Non-Immune Reactive: Immune The following results were obtained with the [employer] Rubella IgG assay. Results from assays of other manufacturers cannot be used interchangeably. Performed By: #### L 509.4006, L3890.6301, L100.0100, BTS, L3890.6102, L509.8002, L3890.6006, L506.0400, L501.9520 #### [facility] [address] [place], [place], [id number] Laboratory - Chemistry and C hemistry - challengeOrdered By: Kaila Henderson on 10-30-2024 Glucose Ql (U) Negative [facility] - Microbiology an d Antimicrobial susceptibilityOrdered By: Kaila Henderson on 10-30-2024 HBV surface Ag Ql (S) Non-Reactive Nonreactive [facility] Comment on above: Reactive: Presumptiv e evidence of HBV. Repeatedly reactive samples must be confirmed using a neutralization test ([employer] HBsAg Confirmatory Test)Non-Reactive: HBsAg not detected; does not exclude the possibility of exposure to HBV Laboratory - UrinalysisOrder ed By: Kaila Henderson on 10-30-2024 Protein Ql (U) Negative [facility] MCV (mean corpuscular volume ) determinationOrdered By: Kaila Henderson on 10-30-2024 MCV (RBC) [Entitic vol] 92.5 fL 81-99 [facility] Mean corpuscular hemoglobin (MCH) determinationOrdered By: Kaila Henderson on 10-30-2024 MCH (RBC) [Entitic mass] 30.3 pg 27.0-32.0 [facility] Mean corpuscular hemoglobin concentration (MCHC) determinationOrdered By: Kaila Henderson on 10-30-2024 MCHC (RBC) [Mass/Vol] 32.8 g/dL 32-36 [facility] Mean platelet volume determi nationOrdered By: Kaila Hsuivanna on 10-30-2024 Platelet mean volume (Bld) [Entitic vol] 10.5 fL 6.2-12.0 [facility] Monocyte percentageOrdered B y: Kaila Henderson on 10-30-2024 Monocytes/100 WBC (Bld) 7.9 % 0-10 [facility] Neutrophil percentageOrdered By: Kaila Henderson on 10-30-2024 Neutrophils/100 WBC (Bld) 66.1 % 47-70 [facility] No Panel InformationOrdered By: Kaila Henderson on 10-30-2024 HIV (1&2) Antibody Non-Reactive Nonreactive [facility] Comment on above: Non-ReactiveReactive Repeatedly reactive samples must be confirmed according to CDC recommended confirmatory algorithms. The subresults for either HIVAG or AHIV can be used as an aid in the selection of the confirmation algorithm for reactive samples.Send out specimens with Reactive results to [facility] for confirmation.Order the HIV antibody detection and differentiation: lc#[id number] Nucleated red blood cell per centageOrdered By: Kaila Henderson on 10-30-2024 Nucleated RBC/100 WBC (Bld) [Ratio] 0 % 0-5 [facility] Tanning Solution Maker Office Visit Reporton 10-30-2024 Tanning Solution [facility] Office Visit Report [facility] [address], [address] [place] [address] OFFICE VISIT Date of Service: 10/30/24 MR#: [id number] Acct: [id number] Name: LATONYA RODARTE Rep #: [id number] : 1985 Provider: Dr. Kaila cali MD Age/Sex: 39/F Location: [facility] Status: Signed Intake Vital Signs 10/24/24 11:42 10/30/24 09:05 10/30/24 09:10 Height 5 ft 4 in 5 ft 4 in 5 ft 4 in Weight: 165 lb 4 oz BMI 28.3 BP 116/70 Intake Visit Reasons: 10W 1D HeartBeat CK per JV Migration Agent Required: No Is patient in pain?: No Allergies ampicillin Allergy (Verified 10/30/24 09:05) Hives Medications ???Medication ???Instructions ???Recorded ???Confirmed ???Type Lactobacillus 25 billion cap PO 10/14/24 10/30/24 History cell-Bifido 25 billion qvnk-WHT-icsvr capsule aspirin 81 mg tablet,delayed 81 mg [...] 3-4 times per week duration: 15-30 minutes/day sotero/hoahaoism: None seatbelt use: always do you feel safe at home: Yes 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 ? (more content not included)... Normal [facility] Platelet countOrdered By: Mari Henderson on 10-30-2024 Platelets (Bld) [#/Vol] 320 10*3/uL 150-450 [facility] RBC Auto (Bld) [#/Vol]Ordere d By: Kaila Henderson on 10-30-2024 RBC (Bld) [#/Vol] 4.52 10*6/uL 4.2-5.4 [facility] Syphilis Antibodieson 2024 Syphilis Abs Non-Reactive Normal Nonreactive [facility] Comment on above: Performed By: #### L 509.4006, L3890.6301, L100.0100, BTS, L3890.6102, L509.8002, L3890.6006, L506.0400, L501.9520 #### [facility] [address] [place], [place], [id number] T4 Free Directon 10-30-2024 T4 FREE DIRECT 1.50 ng/dL High 0.76-1.46 [facility] Comment on above: Performed By: #### L 509.4006, L3890.6301, L100.0100, BTS, L3890.6102, L509.8002, L3890.6006, L506.0400, L501.9520 #### [facility] [address] [place], [place], [id number] T4 freeOrdered By: Kaila pickens on 10-30-2024 Free T4 [Mass/Vol] 1.50 ng/dL High 0.76-1.46 [facility] TSH DL <= 0.005 mIU/L QnOrde red By: Kaila Henderson on 10-30-2024 TSH Qn 1.320 uIU/mL 0.300-4.200 [facility] Thyroid Stim Hormone (TSH)on 10-30-2024 TSH 1.320 uIU/mL Normal 0.300-4.200 [facility] Comment on above: Performed By: #### L 509.4006, L3890.6301, L100.0100, BTS, L3890.6102, L509.8002, L3890.6006, L506.0400, L501.9520 #### [facility] [address] [place], [address] Type AND Screenon 10-30-2024 Ab SCREEN GEL Negative Normal [facility] Comment on above: Order Comment: PN Performed By: #### L 509.4006, L3890.6301, L100.0100, BTS, L3890.6102, L509.8002, L3890.6006, L506.0400, L501.9520 #### [facility] [address] [place], [address] White blood cell (WBC) count Ordered By: Kaila Henderson on 10-30-2024 WBC (Bld) [#/Vol] 8.5 10*3/uL 4.4-11.0 [facility] Chlamydia/GC MONICA aptimaon CHLAMY,NUC ACID Negative Normal Negative [facility] Comment on above: Performed By: #### L 509.4006, L3890.6301, L100.0100, BTS, L3890.6102, L509.8002, L3890.6006, L506.0400, L501.9520 #### [facility] [address] [place], [place], [id number] GC BY NUC ACID Negative Normal Negative [facility] Comment on above: Result Comment: Perf ormed at: =G - [facility] [address] [id number] [place]ber: Alona Tanner MD, Phone: [phone] Performed By: #### L 509.4006, L3890.6301, L100.0100, BTS, L3890.6102, L509.8002, L3890.6006, L506.0400, L501.9520 #### [facility] [address] [facility] [place], [address] Urine Cultureon 10-27-2024 UR Copy of report sent to Infection Control Printer [id number] 10/26/24 0756 NELSY. Urine Culture [facility] 1524 Nolvia Leon. REPORT READ BACK BY . Urine Culture Urine Culture ESBL Escherichia coli [place] Count >100,000 MARKER ESBL producing OrganismA MARKER [...] TMP SMX Islt MARIAMA <=20 S Normal [facility] Comment on above: Performed By: #### L 509.4006, L3890.6301, L100.0100, BTS, L3890.6102, L509.8002, L3890.6006, L506.0400, L501.9520 #### [facility] [address] [facility] [address] [place], [place], [id number] Chlamydia trachomatis rRNA d etection by probe and target amplification methodOrdered By: Kaila Henderson on 10-24-2024 C. trachomatis rRNA MONICA+probe Ql (Unsp spec) Negative Negative [facility] Neisseria gonorrhoeae nuclei c acid detection by amplified probe techniqueOrdered By: Kaila Henderson on 10-24-2024 N. gonorrhoeae DNA MONICA+probe Ql (Unsp spec) Negative Negative [facility] Comment on above: Performed at: =[place] [address] [place] [id number] Director: Alona Tanner MD, Phone: [phone] Tanning Solution Maker Office Visit Reporton 10-24-2024 Tanning Solution Maker Office Visit Report [facility] [address], [address] [place] [address] OFFICE VISIT Date of Service: 10/24/24 MR#: [id number] Acct: [id number] Name: LATONYA RODARTE Rep #: [id number] : 1985 Provider: Dr. Iman Silverman DO Age/Sex: 39/F Location: [facility] [place] Status: Signed Intake Vital Signs 01/26/21 17:03 10/14/24 10:25 10/24/24 11:39 10/24/24 11:42 Height 5 ft 4 in 5 ft 4 in 5 ft 4 in 5 ft 4 in Weight: 166 lb 4 oz BMI 28.5 BP 111/65 Intake Visit Reasons: NOB IVF transfer 09/09 Migration Agent Required: No Is patient in pain?: No Allergies ampicillin Allergy (Verified 10/24/24 11:39) Hives Medications ???Medication ???Instructions ???Recorded ???Confirmed ???Type Lactobacillus 25 billion cap PO 10/14/24 10/24/24 History cell-Bifido 25 billion jpks-KJP-wczxu capsule aspirin 81 mg tablet,delayed 81 mg [...] Period: 08/21/24 Zika: Zika virus screening: Negative [facility] Medical History Lipoma of back Rectal atresia [...] 3-4 times per week duration: 15-30 minutes/day sotero/hoahaoism: None seatbelt use: always do you feel safe at home: Yes 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 Normal [facility] Urine cultureOrdered By: Bk Henderson on 10-24-2024 Bacteria identified Cx Nom (U) ESBL Escherichia coli Abnormal [facility] - Chemistry and C hemistry - challengeOrdered By: Kaila Henderson on 10-14-2024 HCG ( test) Ql (U) Positive [facility] Office Visit Reporton 2024 Office Visit Report [facility] [address] [place] [address] OFFICE VISIT Date of Service: 10/14/24 MR#: [id number] Acct: [id number] Patient: LATONYA RODARTE Rep #: [id number] : 1985 Provider: Dr. Kaila cali MD Age/Sex: 39/F Location: [facility] [place] Status: Signed Intake Vital Signs 01/26/21 17:03 10/14/24 10:25 Height 5 ft 4 in 5 ft 4 in Weight: 163 lb 8 oz BMI 28.0 BP 106/71 Blood Pressure Location Lt brachial Position Sitting Intake Visit Reasons: Confirmation for / Vitals Chief Complaint: fever, chills, nausea, abd pain Migration Agent Required: No Is patient in pain?: No Allergies ampicillin Allergy (Verified 10/14/24 10:26) Hives Medications ???Medication ???Instructions ???Recorded ???Confirmed ???Type Lactobacillus 25 billion cap PO 10/14/24 10/14/24 History cell-Bifido 25 billion fgrz-MXX-syveh capsule aspirin 81 mg tablet,delayed 81 mg [...] : Status: Acute Comment: , WES 05/27/25, Johnny([facility] Web Marketing Assistant) (4) History of miscarriage, currently : Status: [...] MD Cosigner Signature: Date (if applicable) CC: [facility] IR CECOSTOMY EXCHANGE WITH F LUOROon 10-09-2024 IR CECOSTOMY EXCHANGE WITH FLUORO IR tube change request Current tube: Mini ALEX Current tube size: 14 fr 6.5 cm Plan for IR tube change (what tube/size): same as above Please use fluoro to measure tract of henson to ensure appropriate size of tube is ordered. For all OUTPATIENT orders please call [phone] in addition to placing order. The on-call [...] indwelling tube is a 14 Citizen [place], 6 cm mini Alex button. Interpreted by: Doroteo Rodney MD Signed by: Doroteo Rodney MD on 10/09/2024 12:12 PM Normal [facility] RF Guidance for placement of tube in Gastrointestinal tracton 10-09-2024 Impression: Cecostomy tube exchange. The indwelling tube is a 14 Citizen [place], 6 cm mini Alex button. [facility] Doroteo Rodney MD - 10/09/2024 History: Constipation. 7 weeks . Procedure note: A timeout was performed per protocol. The patient's cecostomy tube was exchanged over a wire. The balloon was inflated and the line flushed. IMPRESSION Impression: Cecostomy tube exchange. The indwelling tube is a 14 Citizen [place], 6 cm mini Alex button. [facility] Radiology Study observation (narrative) [facility] RF Guidance for placement of tube in Gastrointestinal tractOrdered By: Doroteo Rodney on 10-09-2024 [facility] Work Phone: Kidneyon 10-09-2024 1. The [...] hydroureteronephrosis 4. Post void bladder residual volume. [facility] Radiology Study observation (narrative) [facility] US KidneyOrdered By: Kiki miranda on 10-09-2024 [facility] Work Phone: IR CECOSTOMY EXCHANGE WITH F LUOROon 04-10-2024 IR CECOSTOMY EXCHANGE WITH FLUORO IR tube change request Current tube:mini ALEX Current tube size: 14 FR 6.5 cm Plan for IR tube change (what tube/size): Measure the tract using contrast is visualize the entire tract For all OUTPATIENT orders please call [phone] in addition to placing order. The on-call [...] None. LOCAL ANESTHESIA: 2ml of lidocaine jelly. MANAGER OF CONSTRUCTION: Anant Jo MD ASSISTANTS: None. SPECIMENS: None. [...] at 6.5 cm. A new 12-Citizen [place], 6 cm in length mini Alex button [...] The indwelling tube is a 12-Citizen [place], 6 cm stomal length mini Alex button. Interpreted by: Anant Jo MD Signed by: Anant Jo MD on 04/10/2024 2:41 PM Normal [facility] RF Guidance for placement of tube in Gastrointestinal tracton 04-10-2024 1.Cecostomy tract length measured at 6.0 cm using a stoma length measuring device. Cecostomy tract length measured at 6.5 cm using contrast injection method. 2.Cecostomy tube exchange. The indwelling tube is a 12-Citizen [place], 6 cm stomal length mini Alex button. [facility] STUDY: IR CECOSTOMY EXCHANGE WITH FLUORO 04/10/2024 2:27 PM REASON FOR EXAM: History of anorectal malformation ;Anorectal malformation PROCEDURE: Cecostomy tube exchange. PREOPERATIVE DIAGNOSIS: Constipation. POSTOPERATIVE DIAGNOSIS: Same ANESTHESIA: None. LOCAL ANESTHESIA: 2ml of lidocaine jelly. MANAGER OF CONSTRUCTION: Anant Jo MD ASSISTANTS: None. SPECIMENS: None. [...] at 6.5 cm. A new 12-Citizen [place], 6 cm in length mini Alex button [...] None. LOCAL ANESTHESIA: 2ml of lidocaine jelly. MANAGER OF CONSTRUCTION: Anant Jo MD ASSISTANTS: None. SPECIMENS: None. [...] at 6.5 cm. A new 12-Citizen [place], 6 cm in length mini Alex button [...] The indwelling tube is a 12-Citizen [place], 6 cm stomal length mini Alex button. [facility] Radiology Study observation (narrative) [facility] RF Guidance for placement of tube in Gastrointestinal tractOrdered By: Anant Jo on 04-10-2024 [facility] Work Phone: XR ABDOMEN - SUPINEon [...] Gregg MD on 04/10/2024 3:55 PM Normal [facility] XR Abdomen Supine and Uprigh ton 04-10-2024 Above average stool burden, stable since the prior study. Otherwise normal abdominal radiograph. RADIOLOGY REASON FOR EXAM: Ass ess Stool [...] SOFT TISSUES: Normal. CALCIFICATIONS: None. BONES: Normal. RADIOLOGY Denise Gregg MD - 04/10/2024 REASON [...] the prior study. Otherwise normal abdominal radiograph. [facility] Radiology Study observation (narrative) [facility] XR Abdomen Supine and Uprigh tOrdered By: Denise Gregg on 04-10-2024 [facility] Work Phone: Surgical pathology studyon 0 10-31-2023 Surgical pathology study Pathology report.total SEE COMMENT Surgical Pathology Case: [id number] Authorizing Provider: Von Adler MD Collected: 10/31/2023 1438 Ordering Location: [facility] Received: 11/01/2023 1535 Center Pathologist: Zev [...] is entirely submitted in one cassette. [facility] Basic Metabolic Panelon 05-2020 CKD-EPI Estimated Glomerular Filtration Rate (eGFR) is calculated using the 2020 CKD-EPI creatinine equation. This equation uses serum creatinine, sex and age for calculating the eGFR. Normal [facility] Comment on above: Performed By: #### B MP #### [facility] [address] [place] [address]771 Anion gap [Moles/Vol] 10 mmol/L Normal 8-15 [facility] Comment on above: Performed By: #### B MP #### [facility] [address] [place] [address] 37943 Calcium [Mass/Vol] 9.1 mg/dL Normal 8.6-10.6 [facility] Comment on above: Performed By: #### B MP #### [facility] [address] [place] [address]21 Chloride [Moles/Vol] 106 mmol/L Normal 98-107 [facility] Comment on above: Performed By: #### B MP #### [facility] [address] [place] [address] 64387 CO2 [Moles/Vol] 24 mmol/L Normal 22-29 [facility] Comment on above: Performed By: #### B MP #### [facility] [address] [place] [address] 16498 Creatinine [Mass/Vol] 0.9 mg/dL Normal 0.5-1.2 [facility] Comment on above: Performed By: #### B MP #### [facility] [address] [place] [address] 26424 eGFR 81 mL/min/1.73sqm Normal >=60 [facility] Comment on above: Performed By: #### B MP #### [facility] [address] [place] [address] 32522 Glucose [Mass/Vol] 80 mg/dL Normal 74-109 [facility] Comment on above: Performed By: #### B MP #### [facility] [address] [place] [address] 98956 Potassium [Moles/Vol] 3.7 mmol/L Normal 3.4-5.1 [facility] Comment on above: Performed By: #### B MP #### [facility] [address] [place] [address] 07039 Sodium [Moles/Vol] 140 mmol/L Normal 136-145 [facility] Comment on above: Performed By: #### B MP #### [facility] [address] [place] [address] 01142 Urea nitrogen [Mass/Vol] 19 mg/dL Normal 6-23 [facility] Comment on above: Performed By: #### B MP #### [facility] [address] [place] [address] 18752 CBC with Diffon 10-30-2023 BA# 0.1 x(10)3/cumm Normal 0.0-0.1 [facility] Comment on above: Performed By: #### C BCDIFF #### [facility] [address] [place] [address] 84060 Basophils/100 WBC (Bld) 1.0 % Normal 0.0-1.0 [facility] Comment on above: Performed By: #### C BCDIFF #### [facility] [address] [place] [address] 41544 EO# 0.1 x(10)3/cumm Normal 0.0-0.4 [facility] Comment on above: Performed By: #### C BCDIFF #### [facility] [address] [place] [address] 23080 Eosinophils/100 WBC (Bld) 1.7 % Normal 0.0-6.1 [facility] Comment on above: Performed By: #### C BCDIFF #### [facility] [address] [place] [address] 76382 Erythrocyte distribution width (RBC) [Ratio] 13.7 % Normal 11.1-15.3 [facility] Comment on above: Performed By: #### C BCDIFF #### [facility] [address] [place] [address] 32584 Hematocrit (Bld) [Volume fraction] 39.4 % Normal 34.6-45.0 [facility] Comment on above: Performed By: #### C BCDIFF #### [facility] [address] [place] [address] 92602 Hemoglobin (Bld) [Mass/Vol] 13.0 g/dL Normal 11.5-15.5 [facility] Comment on above: Performed By: #### C BCDISAYRA #### [facility] [address] [place] [address] 51080 LY# 2.3 x(10)3/cumm Normal 0.8-2.9 [facility] Comment on above: Performed By: #### C BCDIFF #### [facility] [address] [place] [address] 50777 Lymphocytes/100 WBC (Bld) 32.9 % Normal 12.2-42.6 [facility] Comment on above: Performed By: #### C BCDISAYRA #### [facility] [address] [place], [place] [id number] MCH (RBC) [Entitic mass] 30.4 pg Normal 27.2-33.6 [facility] Comment on above: Performed By: #### C BCDISAYRA #### [facility] [address] [place], [place] [id number] MCHC (RBC) [Mass/Vol] 33.0 g/dL Normal 32.9-35.3 [facility] Comment on above: Performed By: #### C BCDISAYRA #### [facility] [address] [place] [address] 01609 MCV (RBC) [Entitic vol] 92.0 fL Normal 81.3-96.7 [facility] Comment on above: Performed By: #### C BCDISAYRA #### [facility] [address] [place], [place] [id number] MO# 0.5 x(10)3/cumm Normal 0.2-0.8 [facility] Comment on above: Performed By: #### C BCDISAYRA #### [facility] [address] [place], [place] [id number] Monocytes/100 WBC (Bld) 7.9 % Normal 3.3-11.6 [facility] Comment on above: Performed By: #### C BCDISAYRA #### [facility] [address] [place] [address] 19505 NE# 3.9 x(10)3/cumm Normal 1.3-7.4 [facility] Comment on above: Performed By: #### C BCDIFF #### [facility] [address] [place] [address] 66804 Neutrophils/100 WBC (Bld) 56.5 % Normal 44.9-78.8 [facility] Comment on above: Performed By: #### C BCDIFF #### [facility] [address] [place] [address] 98960 Platelet mean volume (Bld) [Entitic vol] 8.9 fL Normal 6.4-10.0 [facility] Comment on above: Performed By: #### C BCDIFF #### [facility] [address] [place] [address] 47304 PLT 269 x(10)3/cumm Normal 138-367 [facility] Comment on above: Performed By: #### C BCDIFF #### [facility] [address] [place] [address] 91011 Plt Morph Normal [facility] Comment on above: Performed By: #### C BCDIFF #### [facility] [address] [place] [address] 99319 RBC 4.28 X(10)6/cumm Normal 3.90-5.10 [facility] Comment on above: Performed By: #### C BCDIFF #### [facility] [address] [place] [address] 14457 RBC Morph cont Normal [facility] Comment on above: Performed By: #### C BCDIFF #### [facility] [address] [place] [address] 23597 RBC morphology finding Nom (Bld) Normal [facility] Comment on above: Performed By: #### C BCDIFF #### [facility] [address] [place] [address] 61253 WBC 6.9 x(10)3/cumm Normal 3.6-10.3 [facility] Comment on above: Performed By: #### C BCDIFF #### [address] [place], [place] [address] WBC Morph [facility] Comment on above: Performed By: #### C ANTONIO #### [facility] [address] [place] [address] 21188 Frederick 02-07-2023 DEREKN Telephone (REIBD) LATONYA RODARTE ([id number]) 1985 F Date Time Provider Department 02/07/23 MACKENZIE DURAN During your visit today, we recorded the following information about you: Allergies As of Date: 02/07/2023 Noted Allergy Reaction AMPICILLIN 10/28/2019 14 - Other: See Comments Comments: childhood allergy- hives Date Reviewed: 12/14/2022 Reviewed by: Stuart Guerrero APRN.AUTOMATION MACHINE OPERATOR - Fully Assessed Reason for Visit: Opened [...] as directed. For low dose HCG Pregnyl 52370 units with 5ml syringe and needle to mix and 15 insulin syringes. - [employer] Container-Ins Syrng-Ndl 1/2 mL 30 x 1/2 syrg 1 Container as directed. Pregnyl trigger 14010 Units #1 with syringes and needles. - [...] Encounter Status:Closed by ROGER MACKENZIE on 02/07/23 [facility] CNNURSEon 01-22-2023 CNNURSE Nurse Visit (REIBD) LATONYA RODARTE ([id number]) 1985 F Date Time Provider Department 01/22/23 7:15 AM NURSE [facility] REIBCindy During your visit today, we [...] 2023 1:42 PM Referring Provider: STUART GUERRERO [[id number]] Allergies As of Date: 01/22/2023 Noted Allergy Reaction AMPICILLIN 10/28/2019 14 - Other: See Comments Comments: childhood allergy- hives Date Reviewed: 12/14/2022 Reviewed by: Stuart Guerrero APRN.AUTOMATION MACHINE OPERATOR - Fully Assessed Reason for Visit: Infertility [285] Visit Diagnosis:Encounter for fertility testing [Z31.41] Order(s):FOLLICULAR US WHI [[id number]] Order #: [id number]: 6 PROGESTERONE BLD [SQPROG] Order #: [id number] FUTURE PROGESTERONE BLD [SQPROG] Order #: [id number]. #:[id number] Prescriptions as of 01/22/2023 - letrozole (FEMARA) [...] as directed. For low dose HCG Pregnyl 19900 units with 5ml syringe and needle to mix and 15 insulin syringes. - [employer]Ins Syrng-Ndl 1/2 mL 30 x 1/2 syrg 1 Container as directed. Pregnyl trigger 85809 Units #1 with syringes and needles. - [...] Status:Closed by ANAHY VELARDE on 01/22/23 Normal [facility] Estradiol SerPl-ncon 01-22 E2 [Mass/Vol] pg/mL Normal [facility] Comment on above: Order Comment: Speci men Type: BLOOD SPECIMENOrdering Facility: [facility] Address: [address] [place] [phone] Result Comment: This test is not suitable [...] 3243 pg/mL Second trimester : 1561 to 83089 pg/mL Third trimester : 8285 to >08979 pg/mL Post-menopausal Estradiol reference range: < 41 pg/mL Reference: 1. Estradiol - E2 (Estradiol III) [package insert V 3.0 Ugandan]. [facility], [place], [place], November 2015. Performed By: #### 2 243-4 ####[facility] LABCLIA [id number] [place] [id number] [place] PROGESTERONE BLDon 3 Progesterone [Mass/Vol] 0.8 ng/mL See comment ng/mL [facility] Progest SerPl-mCncon 023 Progesterone [Mass/Vol] 0.8 ng/mL Normal See comment [facility] Comment on above: Order Comment: Speci men Type: BLOOD SPECIMENOrdering Facility: [facility] Address: [place] [address] Result Comment: Mens trual Cycle Progesterone Reference Ranges: Follicular: <1.0 ng/mL Ovulation: <12.1 ng/mL Luteal: 1.8 to 23.9 ng/mL. Progesterone Reference Ranges vary by gestational period: First Trimester: 11.0 to 44.3 ng/mL Second Trimester: >25.3 ng/mL Third Trimester: >58.6 ng/mL Post menopausal Progesterone: <0.5 ng/mL Reference: 1. Progesterone (Progesterone III) [package insert V 1.0 Ugandan]. [facility], [place], [place]. March 2015. Performed By: #### 2 839-9 ####[facility] LABCLIA [id number] [place] [id number] [facility] [place] CNNURSEon 01-15-2023 CNNURSE Nurse Visit (REIBD) LATONYA RODARTE ([id number]) 1985 F Date Time Provider Department 01/15/23 7:30 AM NURSE [facility] REIBD During your visit today, we [...] Freda Gerard RN Referring Provider: STUART GUERRERO [[id number]] Allergies As of Date: 01/15/2023 Noted Allergy Reaction AMPICILLIN 10/28/2019 14 - Other: See Comments Comments: childhood allergy- hives Date Reviewed: 12/14/2022 Reviewed by: Stuart Guerrero APRN.AUTOMATION MACHINE OPERATOR - Fully Assessed Reason for Visit: Infertility [285] Visit Diagnosis:Encounter for fertility testing [Z31.41] Order(s):[facility] [[id number]] Order #: [id number]: 6 Prescriptions as of 01/15/2023 - letrozole [...] as directed. For low dose HCG Pregnyl 80182 units with 5ml syringe and needle to mix and 15 insulin syringes. - [employer] Syrng-Ndl 1/2 mL 30 x 1/2 syrg 1 Container as directed. Pregnyl trigger 82457 Units #1 with syringes and needles. - [...] Status:Closed by ANAHY VELARDE on 01/15/23 Normal [facility] Estradiol SerPl-mCncon 01-15 E2 [Mass/Vol] pg/mL Normal [facility] Comment on above: Order Comment: Speci men Type: BLOOD SPECIMENOrdering Facility: [facility] Address: [place] [address] Result Comment: This test is not suitable [...] 3243 pg/mL Second trimester : 1561 to 02872 pg/mL Third trimester : 8285 to >39678 pg/mL Post-menopausal Estradiol reference range: < 41 pg/mL Reference: 1. Estradiol - E2 (Estradiol III) [package insert V 3.0 Ugandan]. [facility], [place], [place], November 2015. Performed By: #### 2 243-4 ####[facility] LABCLIA [id number] [place] [id number] [facility] [place] 01-12-2023 DEREKN Telephone (REIBD) LATONYA RODARTE ([id number]) 1985 F Date Time Provider Department 01/12/23 [...] Date Reviewed: 12/14/2022 Reviewed by: Stuart Guerrero APRN.AUTOMATION MACHINE OPERATOR - Fully Assessed Reason for Visit: cd [...] as directed. For low dose HCG Pregnyl 25103 units with 5ml syringe and needle to mix and 15 insulin syringes. - [employer] Syrng-Ndl 1/2 mL 30 x 1/2 syrg 1 Container as directed. Pregnyl trigger 99169 Units #1 with syringes and needles. - [...] Status:Closed by FREDA GERARD RN on 01/12/23 [facility] 12-14-2022 MARQUITA Telephone (REIBD) LATONYA RODARTE ([id number]) 1985 F Date Time Provider Department 12/14/22 SOREN SEBASTIAN During your visit today, we recorded the following information about you: Ramila Dias 12/14/2022 1:00 PM Signed Pt would like her prescription sent to the [facility] ,speaking with Nurse Freda Gerard RN 12/14/2022 2:45 PM Signed Called patient to advise her we have sent letrozole to the pharmacy she requested. Patient states understanding. Freda Gerard RN December 14, 2022 2:45 PM Allergies As of Date: 12/14/2022 Noted Allergy Reaction AMPICILLIN 10/28/2019 14 - Other: See Comments Comments: childhood allergy- hives Date Reviewed: 12/14/2022 Reviewed by: Stuart Guerrero APRN.AUTOMATION MACHINE OPERATOR - Fully Assessed Reason for Visit: switching [...] used to mix low dose HCG - [employer]-Ins Syrng-Ndl 1/2 mL 30 x 1/2 syrg 1 Container as directed. For low dose HCG Pregnyl 56632 units with 5ml syringe and needle to mix and 15 insulin syringes. - [employer] Syrng-Ndl 1/2 mL 30 x 1/2 syrg 1 Container as directed. Pregnyl trigger 25996 Units #1 with syringes and needles. - [...] Encounter Status:Closed by STUART GUERRERO on 12/14/22 [facility] [place] 12-12-2022 [facility] Telephone (REIBD) CAYDENLATONYA ([id number]) 1985 F Date Time Provider Department 12/12/22 NURSE [facility] During your visit today, we [...] Date Reviewed: 10/17/2022 Reviewed by: Stuart Guerrero APRN.AUTOMATION MACHINE OPERATOR - Fully Assessed Reason for Visit: Patient Question [5787] Prescriptions as of 12/14/2022 - letrozole (FEMARA) [...] as directed. For low dose HCG Pregnyl 42628 units with 5ml syringe and needle to mix and 15 insulin syringes. - [employer] Syrng-Ndl 1/2 mL 30 x 1/2 syrg 1 Container as directed. Pregnyl trigger 44800 Units #1 with syringes and needles. - [...] Status:Closed by FREDA GERARD RN on 12/12/22 [facility] MARQUITA Telephone (REIBD) LATONYA RODARTE ([id number]) 1985 F Date Time Provider Department 12/12/22 [...] Date Reviewed: 10/17/2022 Reviewed by: Stuart Guerrero APRN.AUTOMATION MACHINE OPERATOR - Fully Assessed Reason for Visit: Patient [...] as directed. For low dose HCG Pregnyl 99141 units with 5ml syringe and needle to mix and 15 insulin syringes. - [employer] Syrng-Ndl 1/2 mL 30 x 1/2 syrg 1 Container as directed. Pregnyl trigger 77306 Units #1 with syringes and needles. - [...] Status:Closed by FREDA GERARD RN on 12/12/22 [facility]20[facility] (REIBD[facility] LATONYA RODARTE ([id number]) 1985 F Date Time Provider Department 11/23/22 7:30 AM NURSE [facility] REIBD During your visit today, we [...] 2022 3:11 PM Referring Provider: STUART GUERRERO [[id number]] Allergies As of Date: 11/23/2022 Noted Allergy Reaction AMPICILLIN 10/28/2019 14 - Other: See Comments Comments: childhood allergy- hives Date Reviewed: 10/17/2022 Reviewed by: Stuart Guerrero APRN.AUTOMATION MACHINE OPERATOR - Fully Assessed Reason for Visit: Infertility [285] Visit Diagnosis:Encounter for fertility testing [Z31.41] Order(s):FOLLICULAR US [facility] [[id number]] Order #: [id number]: 6 PROGESTERONE BLD [SQPROG] Order #: [id number] FUTURE ESTRADIOL-17B BLD [SQE2] Order #: [id number]. #:[id number] PROGESTERONE BLD [SQPROG] Order #: [id number]. #:[id number] Prescriptions as of 01/09/2023 - letrozole (FEMARA) [...] as directed. For low dose HCG Pregnyl 02967 units with 5ml syringe and needle to mix and 15 insulin syringes. - [employer] Syrng-Ndl 1/2 mL 30 x 1/2 syrg 1 Container as directed. Pregnyl trigger 10130 Units #1 with syringes and needles. - [...] Status:Closed by WIL LUKE on 11/25/22 Normal [facility] ESTRADIOL-17B BLDon 11-24-19 23 E2 [Mass/Vol] 42 pg/mL [facility] Estradiol SerPl-mCncon 11-23 E2 [Mass/Vol] 42 pg/mL Normal [facility] Comment on above: Order Comment: Speci men Type: BLOOD SPECIMENOrdering Facility: [facility] Address: [address] [place], [place] [address] Result Comment: This test is not suitable [...] 3243 pg/mL Second trimester : 1561 to 04759 pg/mL Third trimester : 8285 to >15883 pg/mL Post-menopausal Estradiol reference range: < 41 pg/mL Reference: 1. Estradiol - E2 (Estradiol III) [package insert V 3.0 Ugandan]. [facility], [place], [place], November 2015. Performed By: #### 2 243-4, 2839-9 ####[facility] LABCLIA [id number] [place] [id number] [place] PROGESTERONE BLDon 3 Progesterone [Mass/Vol] 3.1 ng/mL High See comment ng/mL [facility] Progest SerPl-mCncon 023 Progesterone [Mass/Vol] 3.1 ng/mL High See comment [facility] Comment on above: Order Comment: Speci men Type: BLOOD SPECIMENOrdering Facility: [facility] Address: [address] [place] [phone] Result Comment: Mens trual Cycle Progesterone Reference Ranges: Follicular: <1.0 ng/mL Ovulation: <12.1 ng/mL Luteal: 1.8 to 23.9 ng/mL. Progesterone Reference Ranges vary by gestational period: First Trimester: 11.0 to 44.3 ng/mL Second Trimester: >25.3 ng/mL Third Trimester: >58.6 ng/mL Post menopausal Progesterone: <0.5 ng/mL Reference: 1. Progesterone (Progesterone III) [package insert V 1.0 Ugandan]. [facility], [place], [place]. March 2015. Performed By: #### 2 243-4, 2839-9 ####[facility] LABCLIA [id number] [place] [address] [facility] CNNURSEon 11-22-2022 CNNURSE Nurse Visit (REIBD) LATONYA RODARTE ([id number]) 1985 F Date Time Provider Department 11/22/22 7:45 AM NURSE [facility] REIBD During your visit today, we [...] 2022 2:01 PM Referring Provider: STUART GUERRERO [[id number]] Allergies As of Date: 11/22/2022 Noted Allergy Reaction AMPICILLIN 10/28/2019 14 - Other: See Comments Comments: childhood allergy- hives Date Reviewed: 10/17/2022 Reviewed by: Stuart Guerrero APRN.AUTOMATION MACHINE OPERATOR - Fully Assessed Primary Visit Diagnosis:Female infertility [N97.9] Other Visit Diagnosis:Encounter for fertility testing [Z31.41] Order(s):FOLLICULAR US [facility] [[id number]] Order #: [id number]. #:[id number] WPOINTQty: 6 ESTRADIOL-17B BLD [SQE2] Order #: [id number]. #:[id number] Prescriptions as of 11/22/2022 - letrozole (FEMARA) [...] as directed. For low dose HCG Pregnyl 37090 units with 5ml syringe and needle to mix and 15 insulin syringes. - [employer] Syrng-Ndl 1/2 mL 30 x 1/2 syrg 1 Container as directed. Pregnyl trigger 17889 Units #1 with syringes and needles. - [...] Status:Closed by WIL LUKE on 11/22/22 Normal [facility] ESTRADIOL-17B BLDon 11-23-19 E2 [Mass/Vol] 31 pg/mL [facility] Estradiol SerPl-mCncon 11-22 E2 [Mass/Vol] 31 pg/mL Normal [facility] Comment on above: Order Comment: Speci men Type: BLOOD SPECIMENOrdering Facility: [facility] Address: [address] [place] [phone] Result Comment: This test is not suitable [...] 3243 pg/mL Second trimester : 1561 to 12475 pg/mL Third trimester : 8285 to >09715 pg/mL Post-menopausal Estradiol reference range: < 41 pg/mL Reference: 1. Estradiol - E2 (Estradiol III) [package insert V 3.0 Ugandan]. [facility], [place], [place], November 2015. Performed By: #### 2 243-4 ####[facility] LABCLIA [id number] [address] [place] 11-23-19 [facility] [place] 11-21-2022 DEREKN Telephone (REIBD) LATONYA RODARTE ([id number]) 1985 F Date Time Provider Department 11/21/22 [...] Date Reviewed: 10/17/2022 Reviewed by: Stuart Guerrero APRN.AUTOMATION MACHINE OPERATOR - Fully Assessed Reason for Visit: Freda [...] as directed. For low dose HCG Pregnyl 05170 units with 5ml syringe and needle to mix and 15 insulin syringes. - [employer] Syrng-Ndl 1/2 mL 30 x 1/2 syrg 1 Container as directed. Pregnyl trigger 20270 Units #1 with syringes and needles. - [...] by FREDA GERARD RN on 11/21/22 Normal [facility] ESTRADIOL-17B [facility] 11-16-19 E2 [Mass/Vol] 94 pg/mL [facility] PROGESTERONE [facility] Progesterone [Mass/Vol] 0.9 ng/mL See comment ng/mL [facility] ESTRADIOL-17B [facility] 09-08-19 E2 [Mass/Vol] 44 pg/mL [facility] FOLLICULAR [facility] [place] 09-08-19 [facility] ESTRADIOL-17B [facility] 09-05-19 E2 [Mass/Vol] 49 pg/mL [facility] FOLLICULAR US [place] 09-05-19 [facility] FOLLICULAR US [place] 08-30-19 [facility] FOLLICULAR US [place] 08-11-19 [facility] - Chemistry and C hemistry - challengeon 08-10-2022 HCG.beta subunit Qn 138.1 m[IU]/mL High <5.0 mIU/mL [facility] ESTRADIOL-17B [facility] 08-09-19 E2 [Mass/Vol] 294 pg/mL [facility] FOLLICULAR US [place] 08-09-19 [facility] - Chemistry and C hemistry - challengeon 08-09-2022 Progesterone [Mass/Vol] 0.5 ng/mL See comment ng/mL [facility] Lutropin Qn 13.7 m[IU]/mL See comment mIU/mL [facility] ESTRADIOL-17B BLDon 08-08-19 E2 [Mass/Vol] 290 pg/mL [facility] FOLLICULAR US WHIon 08-08-19 23 [facility] LUTEINIZING HORMONEon 2022 Lutropin Qn 13.4 m[IU]/mL See comment mIU/mL [facility] PROGESTERONE BLDon 3 Progesterone [Mass/Vol] 0.5 ng/mL See comment ng/mL [facility] ESTRADIOL-17B Don 08-07-19 E2 [Mass/Vol] 218 pg/mL [facility] FOLLICULAR US WHIon 08-07-19 23 [facility] - Chemistry and C hemistry - challengeon 08-07-2022 Progesterone [Mass/Vol] 0.5 ng/mL See comment ng/mL [facility] Lutropin Qn 13.4 m[IU]/mL See comment mIU/mL [facility] FOLLICULAR US WHIon 08-03-19 [facility] - Chemistry and C hemistry - challengeon 08-03-2022 Progesterone [Mass/Vol] 0.5 ng/mL See comment ng/mL [facility] Lutropin Qn 39.2 m[IU]/mL See comment mIU/mL [facility] E2 [Mass/Vol] 50 pg/mL [facility] ESTRADIOL-17B Don 08-02-19 E2 [Mass/Vol] 31 pg/mL [facility] FOLLICULAR US WHIon 08-02-19 [facility] LUTEINIZING HORMONEon 2022 Lutropin Qn 43.2 m[IU]/mL See comment mIU/mL [facility] PROGESTERONE Don 3 Progesterone [Mass/Vol] 0.7 ng/mL See comment ng/mL [facility] ESTRADIOL-17B Don 07-25-19 E2 [Mass/Vol] [facility] FOLLICULAR US WHIon 07-25-19 [facility] ESTRADIOL-17B Don 07-06-19 E2 [Mass/Vol] 92 pg/mL [facility] FOLLICULAR US WHIon 07-06-19 [facility] CONSULT PROGon 06-05-2022 CONSULT PROG HNO ID: [id number] Author: Soren Sebastian MD Service: ? Author Type: Physician Type: Consult Progress Note Filed: 06/05/2022 1:14 PM Note Text: VIRTUAL VISIT PROGRESS NOTE This is a virtual visit using [employer] video visit. It required patient-provider interaction for [...] after surgery Discussed to outcome of our EMPLOYMENT SERVICE SPECIALIST/VERENICE portion of the surgery: 1 tube excised. [...] after surgery Discussed to outcome of our EMPLOYMENT SERVICE SPECIALIST/VERENICE portion of the surgery: 1 tube excised. [...] after surgery *Discussed to outcome of our EMPLOYMENT SERVICE SPECIALIST/VERENICE portion of the surgery: 1 tube excised. [...] Bilateral ureteral re-implantation; Bowel resection; Umbilical stoma (AELX); release of tethered spinal cord. Desire for future fertility. 33 year old male partner without proven fertility. SA: Not completed to date. Obstetric History T0 L0 SAB0 IAB0 Ectopic0 Multiple0 Live Births0 Fertility Evaluations and Treatments: Eval Checklist Results Date Comments HSG Abnormal Hysteroscopy Not done Laparoscopy Abnormal severe adhesions OPK (Ovulation Predictor Kit) Normal [facility] [place] Not done Saline Ultrasound Not done Semen [...] BOWEL RESECTION (more content not included)... Normal [facility] ESTRADIOL-17B BLDon 05-01-20 22 E2 [Mass/Vol] 34 pg/mL [facility] FOLLICULAR US WHIon 05-01-20 22 [facility] ESTRADIOL-17B BLDon 04-24-20 22 E2 [Mass/Vol] 60 pg/mL [facility] FOLLICULAR US WHIon 04-24-20 [facility] Hematocrit Auto (Bld) [Volum e fraction]on 04-24-2022 Hematocrit (Bld) [Volume fraction] 39.9 % 36.0 - 46.0 % [facility] ESTRADIOL-17B [facility] 02-25-20 22 E2 [Mass/Vol] 1451 pg/mL [facility] PROGESTERONE [facility] 2 Progesterone [Mass/Vol] 0.7 ng/mL See comment ng/mL [facility] ESTRADIOL-17B [facility] 02-23-20 E2 [Mass/Vol] 182 pg/mL [facility] FOLLICULAR US Ion 02-23-20 [facility] PROGESTERONE [facility] 2 Progesterone [Mass/Vol] 0.6 ng/mL See comment ng/mL [facility] ESTRADIOL-17B [facility] 01-27-20 E2 [Mass/Vol] 107 pg/mL [facility] PROGESTERONE [facility] 2 Progesterone [Mass/Vol] 3.1 ng/mL High See comment ng/mL [facility] HCG QUAL UR B/Oon 12-21-2021 status Negative neg - pos [facility] Quality Check Yes [facility] - Chemistry and C hemistry - challengeon 10-09-2021 HCG.beta subunit Qn 171.5 m[IU]/mL High <5.0 mIU/mL [facility] Lutropin Qn m[IU]/mL See comment mIU/mL [facility] Progesterone [Mass/Vol] 1.6 ng/mL See comment ng/mL [facility] ESTRADIOL-17B [facility] 10-07-19 22 E2 [Mass/Vol] 497 pg/mL [facility] - Chemistry and C hemistry - challengeon 10-06-2021 Progesterone [Mass/Vol] 0.6 ng/mL See comment ng/mL [facility] ESTRADIOL-17B [facility] 10-06-19 22 E2 [Mass/Vol] 398 pg/mL [facility] PROGESTERONE [facility] 2 Progesterone [Mass/Vol] 0.5 ng/mL See comment ng/mL [facility] ESTRADIOL-17B [facility] 04-17-20 22 E2 [Mass/Vol] 192 pg/mL [facility] ESTRADIOL-17B BLDon 09-27-19 22 E2 [Mass/Vol] 73 pg/mL [facility] CT UROGRAM WO/W IVCONon 04-3 CT UROGRAM WO/W IVCON * * *Final Report* * * DATE OF EXAM: Oct 16 2019 10:07AM [facility] 0560 - CT UROGRAM WO/W IVCON / [...] and absence of the coccyx presumably congenital. Social Work Supervisor: NATACHA Transcribe Date/Time: Oct 16 2019 10:10A Dictated by : MULUGETA SHEPARD MD This examination was interpreted and the report reviewed and electronically signed by: MULUGETA SHEPARD MD on Oct 16 2019 10:22AM EST Normal [facility] Vital Signs Date Time Vital Sign Value Performing Clinician Facility 03-03-2025 09:140400 Body height 162.6 cm Raquel Lainez MD Work Phone: [facility] 03-03-2025 09:14-0400 Body mass index (BMI) [Ratio] 30.62 kg/m2 Raquel Lainez MD Work Phone: [facility] 03-03-2025 09:14-0400 Body weight 80.92 kg Raquel Lainez MD Work Phone: [facility] 03-03-2025 09:14-0400 Diastolic blood pressure 74 mm[Hg] Raquel Lainez MD Work Phone: [facility] 03-03-2025 09:14-0400 Systolic blood pressure 116 mm[Hg] Raquel Lainez MD Work Phone: [facility] 02-19-2025 09:08-0400 Body height 162.[address] Imani Helm DO Work Phone: [facility] 02-19-2025 09:08-0400 Body mass index (BMI) [Ratio] 30.4 kg/m2 Dr. Imani Helm DO Work Phone: [facility] 02-19-2025 09:08-0400 Body weight 80.[address] Imani Helm DO Work Phone: [facility] 02-19-2025 09:08-0400 Diastolic blood pressure 77 mm[Hg] Dr. Imani Helm DO Work Phone: [facility] 02-19-2025 09:08-0400 Systolic blood pressure 135 mm[Hg] Dr. Imani Helm DO Work Phone: [facility] 02-09-2025 13:22-0400 Body height 163.4 cm Lyn Arguelles MD Work Phone: [facility] 02-09-2025 13:22-0400 Body mass index (BMI) [Ratio] 30.21 kg/m2 Lyn Arguelles MD Work Phone: [facility] 02-09-2025 13:22-0400 Body temperature 98.2 [degF] Lyn Arguelles MD Work Phone: [facility] 02-09-2025 13:22-0400 Body weight 80.65 kg Lyn Arguelles MD Work Phone: [facility] 02-09-2025 13:22-0400 Diastolic blood pressure 79 mm[Hg] Lyn Arguelles MD Work Phone: [facility] 02-09-2025 13:22-0400 Heart rate 79 /min Lyn Arguelles MD Work Phone: [facility] 02-09-2025 13:22-0400 Respiratory rate 16 /min Lyn Arguelles MD Work Phone: [facility] 02-09-2025 13:22-0400 SaO2% (BldA) [Mass fraction] 97 % Lyn Arguelles MD Work Phone: [facility] 02-09-2025 13:22-0400 Systolic blood pressure 120 mm[Hg] Lyn Arguelles MD Work Phone: [facility] 01-20-2025 15:41-0400 Body height 162.[address] Imani Helm DO Work Phone: [facility] 01-20-2025 15:40-0400 Body mass index (BMI) [Ratio] 30.4 kg/m2 Dr. Imani Helm DO Work Phone: [facility] 01-20-2025 15:40-0400 Body weight 80.[address] Imani Helm DO Work Phone: [facility] 01-20-2025 15:40-0400 Diastolic blood pressure 68 mm[Hg] Dr. Imani Helm DO Work Phone: [facility] 01-20-2025 15:40-0400 Systolic blood pressure 113 mm[Hg] Dr. Imani Helm DO Work Phone: [facility] 12-30-2024 12:00-0400 Body weight 78.0192 kg RAQUEL LAINEZ [facility] Comment on above: Performed By: #### AFPNTP #### [facility] ([facility]) [address] [place] [address] 12-30-2024 10:17-0400 Body height 162.6 cm Raquel Lainez MD Work Phone: [facility] 12-30-2024 10:17-0400 Body mass index (BMI) [Ratio] 29.52 kg/m2 Raquel Lainez MD Work Phone: [facility] 12-30-2024 10:17-0400 Body weight 78.02 kg Raquel Lainez MD Work Phone: [facility] 12-30-2024 10:17-0400 Diastolic blood pressure 64 mm[Hg] Raquel Lainez MD Work Phone: [facility] 12-30-2024 10:17-0400 Systolic blood pressure 114 mm[Hg] Raquel Lainez MD Work Phone: [facility] 12-30-2024 07:56-0400 Body height 162.6 cm [facility] [address] 12-30-2024 07:56-0400 Body mass index (BMI) [Ratio] 29.78 kg/m2 [facility] [address] 12-30-2024 07:56-0400 Body weight 78.7 kg [facility] [address] 12-24-2024 11:50-0400 Body height 162.[address] Imani Helm DO Work Phone: [facility] 12-24-2024 11:50-0400 Body mass index (BMI) [Ratio] 29.3 kg/m2 Dr. Imani Helm DO Work Phone: [facility] 12-24-2024 11:50-0400 Body weight 77.[address] Imani Helm DO Work Phone: [facility] 12-24-2024 11:50-0400 Diastolic blood pressure 73 mm[Hg] Dr. Imani Helm DO Work Phone: [facility] 12-24-2024 11:50-0400 Systolic blood pressure 123 mm[Hg] Dr. Imani Helm DO Work Phone: [facility] 11-26-2024 14:39-0400 Body height 162.[address] Imani Helm DO Work Phone: [facility] 11-26-2024 14:39-0400 Body mass index (BMI) [Ratio] 29.5 kg/m2 Dr. Imani Helm DO Work Phone: [facility] 11-26-2024 14:39-0400 Body weight 78.[address] Imani Helm DO Work Phone: [facility] 11-26-2024 14:39-0400 Diastolic blood pressure 73 mm[Hg] Dr. Imani Helm DO Work Phone: [facility] 11-26-2024 14:39-0400 Systolic blood pressure 109 mm[Hg] Dr. Imani Helm DO Work Phone: [facility] 11-18-2024 14:11-0400 Body height 162.[address] Imani Helm DO Work Phone: [facility] 11-18-2024 14:11-0400 Body mass index (BMI) [Ratio] 29.3 kg/m2 Dr. Imani Helm DO Work Phone: [facility] 11-18-2024 14:11-0400 Body weight 77.[address] Imani Helm DO Work Phone: [facility] 11-18-2024 14:11-0400 Diastolic blood pressure 75 mm[Hg] Dr. Imani Helm DO Work Phone: [facility] 11-18-2024 14:11-0400 Systolic blood pressure 126 mm[Hg] Dr. Imani Helm DO Work Phone: [facility] 11-13-2024 08:10-0400 Body height 162.[address] Imani Helm DO Work Phone: [facility] 11-13-2024 08:10-0400 Body mass index (BMI) [Ratio] 28.7 kg/m2 Dr. Imani Helm DO Work Phone: [facility] 11-13-2024 08:10-0400 Body weight 75.[address] Imani Helm DO Work Phone: [facility] 11-13-2024 08:10-0400 Diastolic blood pressure 64 mm[Hg] Dr. Imani Helm DO Work Phone: [facility] 11-13-2024 08:10-0400 Systolic blood pressure 109 mm[Hg] Dr. Imani Helm DO Work Phone: [facility] 11-06-2024 14:14-0400 Body height 162.[address] Imani Helm DO Work Phone: [facility] 11-06-2024 14:08-0400 Body mass index (BMI) [Ratio] 29.5 kg/m2 Dr. Imani Helm DO Work Phone: [facility] 11-06-2024 14:08-0400 Body weight 78.[address] Imani Helm DO Work Phone: [facility] 11-06-2024 14:08-0400 Diastolic blood pressure 70 mm[Hg] Dr. Imani Helm DO Work Phone: [facility] 11-06-2024 14:08-0400 Systolic blood pressure 102 mm[Hg] Dr. Imani Helm DO Work Phone: [facility] 10-30-2024 09:10-0400 Body height 162.[address] Imani Helm DO Work Phone: [facility] 10-30-2024 09:05-0400 Body mass index (BMI) [Ratio] 28.3 kg/m2 Dr. Imani Helm DO Work Phone: [facility] 10-30-2024 09:05-0400 Body weight 74.[address] Imani Helm DO Work Phone: [facility] 10-30-2024 09:05-0400 Diastolic blood pressure 70 mm[Hg] Dr. Imani Helm DO Work Phone: [facility] 10-30-2024 09:05-0400 Systolic blood pressure 116 mm[Hg] Dr. Imani Helm DO Work Phone: [facility] 10-24-2024 11:42-0400 Body height 162.[address] Imani Helm DO Work Phone: [facility] 10-24-2024 11:39-0400 Body mass index (BMI) [Ratio] 28.5 kg/m2 Dr. Imani Helm DO Work Phone: [facility] 10-24-2024 11:39-0400 Body weight 75.[address] Imani Helm DO Work Phone: [facility] 10-24-2024 11:39-0400 Diastolic blood pressure 65 mm[Hg] Dr. Imani Helm DO Work Phone: [facility] 10-24-2024 11:39-0400 Systolic blood pressure 111 mm[Hg] Dr. Imani Helm DO Work Phone: [facility] 10-14-2024 10:25-0400 Body mass index (BMI) [Ratio] 28 kg/m2 Dr. Imani Helm DO Work Phone: [facility] 10-14-2024 10:25-0400 Body weight 74.[address] Imani Helm DO Work Phone: [facility] 10-14-2024 10:25-0400 Diastolic blood pressure 71 mm[Hg] Dr. Imani Helm DO Work Phone: [facility] 10-14-2024 10:25-0400 Systolic blood pressure 106 mm[Hg] Dr. Imani Helm DO Work Phone: [facility] 10-09-2024 09:43-0400 Body height 162.6 cm Lis Wilson DO Work Phone: [facility] 10-09-2024 09:43-0400 Body mass index (BMI) [Ratio] 28.23 kg/m2 Lis Gasior DO Work Phone: [facility] 10-09-2024 09:43-0400 Body weight 74.6 kg Lis Gasior DO Work Phone: [facility] Comment on above: with shoes 10-09-2024 09:43-0400 Diastolic blood pressure 54 mm[Hg] Lis Gasior DO Work Phone: [facility] 10-09-2024 09:43-0400 Heart rate 81 /min Lis Gasior DO Work Phone: [facility] 10-09-2024 09:43-0400 Systolic blood pressure 113 mm[Hg] Lis Gasior DO Work Phone: [facility] 04-10-2024 09:40-0400 Body height 165.9 cm Andres BHAGATN Work Phone: [facility] 04-10-2024 09:40-0400 Body mass index (BMI) [Ratio] 27.4 kg/m2 Andres BHAGATN Work Phone: [facility] 04-10-2024 09:40-0400 Body weight 75.4 kg Andres Fitzgerald APN Work Phone: [facility] 04-10-2024 09:40-0400 Diastolic blood pressure 68 mm[Hg] Andres BHAGATN Work Phone: [facility] 04-10-2024 09:40-0400 Heart rate 71 /min Andres BHAGATN Work Phone: [facility] 04-10-2024 09:40-0400 Systolic blood pressure 112 mm[Hg] Andres BHAGATN Work Phone: [facility] 11-15-2022 08:19-0400 Body height 162.6 cm Nurse Beac Work Phone: [facility] 11-15-2022 08:19-0400 Body weight 74.2 kg Nurse Beac Work Phone: [facility] 11-15-2022 08:19-0400 Diastolic blood pressure 58 mm[Hg] Nurse Beac Work Phone: [facility] 11-15-2022 08:19-0400 Heart rate 77 /min Nurse Beac Work Phone: [facility] 11-15-2022 08:19-0400 SaO2% (BldA) [Mass fraction] 99 % Nurse Beac Work Phone: [facility] 11-15-2022 08:19-0400 Systolic blood pressure 115 mm[Hg] Nurse Beac Work Phone: [facility] 08-29-2022 07:15-0400 Body height 162.6 cm Nurse Beac Work Phone: [facility] 08-29-2022 07:15-0400 Body weight 74.3 kg Nurse Beac Work Phone: [facility] 08-29-2022 07:15-0400 Diastolic blood pressure 60 mm[Hg] Nurse Beac Work Phone: [facility] 08-29-2022 07:15-0400 Heart rate 78 /min Nurse Beac Work Phone: [facility] 08-29-2022 07:15-0400 SaO2% (BldA) [Mass fraction] 98 % Nurse Beac Work Phone: [facility] 08-29-2022 07:15-0400 Systolic blood pressure 105 mm[Hg] Nurse Beac Work Phone: [facility] 07-06-2022 07:21-0500 Body height 162.6 cm Nurse Beac Work Phone: [facility] 07-06-2022 07:21-0500 Body weight 73.8 kg Nurse Beac Work Phone: [facility] 07-06-2022 07:21-0500 Diastolic blood pressure 61 mm[Hg] Nurse Beac Work Phone: [facility] 07-06-2022 07:21-0500 Heart rate 102 /min Nurse Beac Work Phone: [facility] 07-06-2022 07:21-0500 SaO2% (BldA) [Mass fraction] 98 % Nurse Beac Work Phone: [facility] 07-06-2022 07:21-0500 Systolic blood pressure 97 mm[Hg] Nurse Beac Work Phone: [facility] 04-24-2022 07:41-0500 Body height 162.6 cm Nurse Beac Work Phone: [facility] 04-24-2022 07:41-0500 Body temperature 98.1 [degF] Nurse Beac Work Phone: [facility] 04-24-2022 07:41-0500 Body weight 71.22 kg Nurse Beac Work Phone: [facility] 04-24-2022 07:41-0500 Diastolic blood pressure 60 mm[Hg] Nurse Beac Work Phone: [facility] 04-24-2022 07:41-0500 Heart rate 80 /min Nurse Beac Work Phone: [facility] 04-24-2022 07:41-0500 SaO2% (BldA) [Mass fraction] 98 % Nurse Beac Work Phone: [facility] 04-24-2022 07:41-0500 Systolic blood pressure 98 mm[Hg] Nurse Beac Work Phone: [facility] 12-21-2021 11:23-0400 Body height 162.6 cm Wil Luke MD Work Phone: [facility] 12-21-2021 11:23-0400 Body weight 69.85 kg Wil Luke MD Work Phone: [facility] Encounters Encounter Date Encounter Type Care Provider Facility Start: 03-03-2025 End: 03-03-2025 Subsequent care visit Raquel Lainez MD Work Phone: [facility] [place] Comment on above: Need for Tdap vaccin ation (Primary Dx); Multigravida of advanced maternal age in second trimester; Encounter for supervision of normal first in second trimester; Cloacal malformation Start: 03-03-2025 ambulatory RAQUEL LAINEZ Facility: [facility] Start: 02-25-2025 ambulatory Imani Helm Facility:[facility] Start: 02-19-2025 End: 02-19-[address] Kaila Henderson MD -[facility] Work Phone: Start: 02-19-2025 End: 02-19-[address] Imani Helm DO Work Phone: -[facility] Start: 02-09-2025 End: 02-09-2025 ambulatory RAQUEL LIANEZ [facility] Start: 02-09-2025 End: 02-09-2025 Patient encounter procedure Lyn Arguelles MD Work Phone: [facility] Comment on above: New Patient Evaluati on Start: 02-04-2025 End: 02-04-2025 Orders Only Raquel Lainez MD Work Phone: [facility] Start: 01-22-2025 End: 01-22-2025 Follow-up encounter [facility] [place] [address] [facility] Comment on above: Encounter for follow -up ultrasound of anatomy (Primary Dx); Encounter for ultrasound to assess interval growth of fetus; 22 weeks gestation of ; AMA (advanced maternal age) multigravida 35+, second trimester Start: 01-22-2025 ambulatory RAQUEL LAINEZ Facility: [facility] Start: 01-20-2025 End: 01-20-[address] Iman Jolley DO -[facility] Work Phone: Start: 01-20-2025 End: 01-20-[address] Imnai Helm DO Work Phone: -[facility] Start: 12-30-2024 End: 12-30-2024 Subsequent care visit Raquel Lainez MD Work Phone: [facility] [place] Comment on above: Tethered cord (Prima ry Dx); Uterus didelphys; Recurrent UTI; Cloacal malformation Start: 12-30-2024 ambulatory SELF SELF Facility:[facility] Start: 12-30-2024 End: 12-30-2024 Follow-up encounter Birgit Wood MD Work Phone: [facility] Comment on above: Encounter for anatomic survey (Primary Dx); Advanced maternal age, 1st , first trimester; Encounter for screening for risk of pre-term labor; 18 weeks gestation of ; AMA (advanced maternal age) multigravida 35+, second trimester; Encounter for ultrasound to assess interval growth of fetus; Encounter for follow-up ultrasound of anatomy Start: 12-30-2024 End: 12-30-2024 Patient encounter procedure [facility] [place] [address] [facility] Start: 12-30-2024 ambulatory RAQUEL LAINEZ Facility: [facility] Start: 12-24-2024 End: 12-24-[address] Iman Jolley DO -[facility] Work Phone: Start: 12-24-2024 End: 12-24-[address] Imani Helm DO Work Phone: -[facility] Start: 12-03-2024 End: 12-03-[address] Imani Helm DO Work Phone: [facility] Work Phone: Start: 12-03-2024 End: 12-03-[address] [facility] Start: 12-03-2024 End: 12-03-2024 ambulatory Imani Helm Facility:[facility] Start: 11-26-2024 End: 11-26-[address] Iman Jolley DO -[facility] Work Phone: Start: 11-26-2024 End: 11-26-[address] Imani Helm DO Work Phone: [facility] Work Phone: Start: 11-21-2024 End: 11-21-2024 ambulatory IMANI HELM [facility] Start: 11-18-2024 End: 11-18-2024 Patient encounter procedure Jesse KING -[facility] Work Phone: Start: 11-18-2024 End: 11-18-[address] Imani Helm DO Work Phone: [facility] Work Phone: Start: 11-18-2024 End: 11-18-2024 ambulatory Imani Helm Facility:[facility] Start: 11-13-2024 End: 11-13-[address] Kaila Henderson MD -[facility] Work Phone: Start: 11-13-2024 End: 11-13-[address] Imani Helm DO Work Phone: [facility] Work Phone: Start: 11-06-2024 End: 11-06-[address] Kaila Henderson MD -[facility] Work Phone: Start: 11-06-2024 End: 11-06-[address] Imani Helm DO Work Phone: [facility] Work Phone: Start: 11-06-2024 End: 11-06-2024 ambulatory Kaila Henderson Facility:[facility] Start: 10-30-2024 End: 10-30-[address] Kaila Henderson MD -[facility] Work Phone: Start: 10-30-2024 End: 10-30-[address] Imani Helm DO Work Phone: [facility] Work Phone: Start: 10-30-2024 End: 10-30-2024 [facility] Start: 10-24-2024 End: 10-24-[address] Imani Helm DO Work Phone: [facility] Work Phone: Start: 10-24-2024 End: 10-24-[address] Kaila Henderson MD -[facility] Work Phone: Start: 10-24-2024 End: 10-24-[address] Iman Jolley DO -[facility] Work Phone: Start: 10-24-2024 End: 10-24-2024 ambulatory Imani Malmarysol Facility[facility] Start: 10-24-2024 End: 10-24-2024 ambulatory [facility] Start: 10-14-2024 End: 10-14-[address] Kaila Henderson MD -[facility] Work Phone: Start: 10-14-2024 End: 10-14-2024 ambulatory Kaila Henderson Facility[facility] Start: 10-09-2024 End: 10-09-2024 Initial nursing facility care/day 35 minutes Lis Wilson DO Work Phone: [facility] Comment on above: Anorectal Malformati on Start: 10-09-2024 End: 10-09-2024 ambulatory [facility] Start: 10-09-2024 End: 10-09-2024 Subsequent hospital visit by physician Ir1 [facility] Comment on above: Anorectal malformati on; Other constipation; History of antegrade continence enema procedure Anorectal malformati on Start: 04-13-2024 Orders Only Lazara Brice RN [facility] Comment on above: DME Prescription Start: 04-10-2024 End: 04-10-2024 Subsequent hospital visit by physician Ir1 Juan Luis Rad [facility] Comment on above: Anorectal malformati on Start: 04-10-2024 End: 04-10-2024 ambulatory CHAITANYA NOLAND [facility] Start: 04-10-2024 End: 04-10-2024 Office outpatient visit 25 minutes Andres Fitzgerald APN Work Phone: [facility] Comment on above: Anorectal Malformati on Start: 04-10-2024 End: 04-10-2024 ambulatory CHAITANYA [facility] Start: 04-10-2024 End: 04-10-2024 Subsequent hospital visit by physician Vianey Santillan [facility] Comment on above: Anorectal malformati on Start: 04-09-2024 Telephone encounter Marixa Hernandez Work Phone: [facility] Comment on above: Insurance Issue Start: 04-08-2024 Orders Only [facility] GENERAL INTERNIST AND PHYSICIAN LEADER Work Phone: [facility] Comment on above: General Inquiry Start: 10-31-2023 Encounter for other preprocedural examination EDINSON NEVES AUTOMATION MACHINE OPERATOR~[id number] [facility] Start: 10-31-2023 End: 10-31-2023 ambulatory ISRRAEL ADLER MD~[id number] [facility] Start: 10-30-2023 End: 10-31-2023 ambulatory EDINSON NEVES AUTOMATION MACHINE OPERATOR~[id number] [facility] Start: 02-07-2023 ambulatory Mackenzie Duran MD Work Phone: [facility] Comment on above: VERENICE Patient Care Con ference Start: 02-07-2023 Telephone encounter Mackenzie Duran MD Work Phone: [facility] Comment on above: Opened in Error Start: 01-22-2023 End: 01-22-2023 [facility] Start: 01-22-2023 End: 01-22-2023 Nursing evaluation of patient and report Nurse Verenice c Beac Work Phone: [facility] Comment on above: Encounter for fertil ity testing Start: 01-15-2023 End: 01-15-2023 ambulatory [facility] Facility:[facility] Start: 01-15-2023 End: 01-15-2023 Nursing [...] Start: 11-23-2022 End: 11-23-2022 ambulatory STUART GUERRERO Facility:[facility] Start: 11-23-2022 End: 11-23-2022 Nursing evaluation of patient and report Nurse Verenice c Beac Work Phone: [facility] Comment on above: Encounter for fertil ity testing Start: 11-22-2022 End: 11-22-2022 ambulatory [facility] Start: 11-22-2022 End: 11-22-2022 Nursing evaluation of patient and report Nurse Verenice [facility] Beac Work Phone: [facility] Comment on above: Female infertility ( Primary Dx); Encounter for fertility testing Start: 11-21-2022 Telephone encounter Soren Sebastian MD Work Phone: [facility] Comment on above: Freda re appt tomorr ow Start: 11-16-2022 End: 11-16-2022 ambulatory Nurse Verenice [facility] Work Phone: [facility] Comment on above: Female infertility ( Primary Dx) Start: 11-16-2022 End: 11-16-2022 Telemedicine consultation with patient Nurse Verenice Mayen Work Phone: [facility] Start: 11-15-2022 End: 11-15-2022 Nursing evaluation of [...] evaluation of patient and report Nurse Verenice [facility] Work Phone: [facility] Comment on above: Female infertility Start: 09-04-2022 End: 09-04-2022 Nursing evaluation of patient and report Nurse Verenice [facility] Work Phone: [facility] Comment on above: Female infertility Start: 08-29-2022 End: 08-29-2022 Nursing evaluation of patient and report Nurse Verenice [facility] Work Phone: [facility] Comment on above: Female infertility Start: 08-28-2022 Telephone encounter Soren Sebastian MD Work Phone: [facility] Comment on above: re medication/was it called in ; SEt up baseline for tomorrow at [place] (prefers between 7 and 8 am) Start: 08-25-2022 Telephone encounter Soren Sebastian MD Work Phone: [facility] Comment on above: Next Steps Start: 08-22-2022 Telephone encounter Soren Sebastian MD Work Phone: [facility] Comment on above: order injections Start: 08-17-2022 End: 08-17-2022 Patient encounter procedure Andrology Gang Punch Operator Work Phone: [facility] Comment on above: [...] dean caregiver Danelle Wheat PhD Work Phone: [employer] Start: 08-12-2022 ambulatory Danelle Wheat PhD Work Phone: [facility] Comment on above: fertilization result s Start: 08-12-2022 E-mail encounter fro jermaine caregiver Danelle Wheat PhD Work Phone: [employer] Start: 08-11-2022 End: 08-11-2022 Patient encounter procedure Wil Luke MD Work Phone: [facility] Comment on above: Female infertility ( Primary Dx) Start: 08-11-2022 End: 08-11-2022 Nursing evaluation of patient and report Nurse Verenice [facility] Beac Work Phone: [facility] Comment [...] m caregiver Ysabel Scott MD Work Phone: [employer] Start: 08-09-2022 End: 08-09-2022 Nursing evaluation of patient and report Nurse Verenice c Beac Work Phone: [facility] Comment on above: Female infertility Start: 08-08-2022 End: 08-08-2022 Nursing evaluation of patient and report Nurse Verenice [facility] Beac Work Phone: [facility] Comment on above: Female infertility Start: 08-07-2022 End: 08-07-2022 Orders Only Aiyana Harman SHEAR ASSEMBLEREnochAUTOMATION MACHINE OPERATOR Work Phone: [facility] Comment on above: Female infertility ( Primary Dx) Female infertility Start: 08-03-2022 Telephone encounter Soren Sebastian MD Work Phone: [facility] Comment on above: monitoring Start: 08-03-2022 End: 08-03-2022 Nursing evaluation of patient and report Nurse Verenice [facility] Beac Work Phone: [facility] Comment on above: Female infertility Start: 08-02-2022 End: 08-02-2022 Nursing evaluation of patient and report Nurse Verenice [facility] Beac Work Phone: [facility] Comment on above: Female infertility Start: 07-25-2022 End: 07-25-2022 Nursing evaluation of patient and report Nurse Verenice [facility] Beac Work Phone: [facility] Comment on above: Female infertility Start: 07-24-2022 Telephone encounter Soren Sebastian MD Work Phone: [facility] Comment on above: Patient Update Start: 07-06-2022 End: 07-06-2022 Nursing evaluation of patient and report Nurse Verenice [facility] Be[facility] Work Phone: [facility] Comment [...] 06-05-2022 ambulatory SOREN SEBASTIAN Facility:[facility] Start: 06-05-2022 End: 06-05-2022 Manual pelvic examination Soren Sebastian MD Work Phone: [facility] Comment on above: Diminished ovarian r eserve due to low antral follicle (Primary Dx); Encounter for fertility planning; Female pelvic peritoneal adhesions Start: 06-05-2022 End: 06-05-2022 Telemedicine consultation with patient Soren Sebastian MD Work Phone: [facility] Start: 05-08-2022 Telephone encounter Soren Sebastian MD Work Phone: [facility] Comment on above: Patient Question Start: 05-02-2022 Telephone encounter Soren Sebastian MD Work Phone: [facility] Comment on above: Freda; Freda bleedin g a lot this am/stopped inj Start: 05-01-2022 End: 05-01-2022 Nursing evaluation of patient and report Nurse Verenice [facility] Work Phone: [facility] Comment on above: Female infertility ( Primary Dx); Encounter for fertility testing Start: 04-24-2022 End: 04-24-2022 Nursing evaluation of patient and report Nurse Verenice [facility] Work Phone: [facility] Comment [...] 03-02-2022 End: 03-10-2022 Patient encounter procedure Andrology Gang Punch Operator Work Phone: [facility] Comment on above: Primary female infer tility (Primary Dx) examinatio n or test, unconfirmed (Primary Dx); Infertility, female Start: 02-24-2022 End: 02-24-2022 Nursing evaluation of patient and report Nurse Verenice [facility] Be[facility] Work Phone: [facility] Comment on above: Female infertility ( Primary Dx) Start: 02-22-2022 End: 02-22-2022 Nursing evaluation of patient and report Nurse Verenice [facility] Work Phone: [facility] Comment [...] evaluation of patient and report Nurse Verenice [facility] Work Phone: [facility] Comment [...] 10-16-2021 End: 10-16-2021 Patient encounter procedure Andrology Gang Punch Operator Work Phone: [facility] Comment on above: Female infertility ( Primary Dx) Start: 10-10-2021 End: 10-10-2021 Patient encounter procedure Kieran Palafox MD Work Phone: [facility] Comment on above: Female infertility ( Primary Dx) Start: 10-09-2021 End: 10-09-2021 Nursing evaluation of patient and report Nurse [facility] Beac Work Phone: [facility] Comment on above: Encounter for fertil ity testing Start: 10-08-2021 End: 10-08-2021 Nursing evaluation of patient and report Nurse Verenice [facility] Be[facility] Work Phone: [facility] Comment on above: Encounter for fertil ity testing (Primary Dx) Start: 10-07-2021 Orders Only Aiyana A Yozipo vich SHEAR ASSEMBLER.AUTOMATION MACHINE OPERATOR Work Phone: [facility] Comment on above: Female infertility ( Primary Dx) [place] - [facility] f or stephanie and this wknd Start: 10-06-2021 End: 10-06-2021 Orders Only Aiyana A Yozipovich SHEAR ASSEMBLER.AUTOMATION MACHINE OPERATOR Work Phone: [facility] Comment on above: Female infertility ( Primary Dx) Female infertility Start: 10-05-2021 End: 10-05-2021 Nursing evaluation of patient and report Nurse Verenice [facility] Work Phone: [facility] Comment on above: Female infertility Start: 10-02-2021 End: 10-02-2021 Nursing evaluation of patient and report Nurse Verenice [facility] Be[facility] Work Phone: [facility] Comment on above: Female infertility Start: 09-28-2021 End: 09-28-2021 [facility] Comment on above: Female infertility ( Primary Dx) Start: 09-26-2021 End: 09-26-2021 Nursing evaluation of patient and [facility] Work Phone: [facility] Comment on above: Female infertility ( Primary Dx) Start: 09-22-2021 Orders Only Aiyana anderson APRN.AUTOMATION MACHINE OPERATOR Work Phone: [facility] Comment on above: Female infertility ( Primary Dx) Xochitl/re self pay u s and nurse visit Start: 12-22-2020 End: 03-16-2021 ambulatory [facility] Start: 12-01-2020 ambulatory Facility:[facility] Procedures Date Procedure Procedure Detail Performing Clinician [...] HCV Quant by PCR testing - HCVPCR #[id number] Non Reactive: < 0.8 Equivocal: >/= 0.8 to < 1.0 Reactive: >/= 1.0The CDC requires that a reactive/equivocal HCV antibody result be sent out for confirmation. HCV Quant by PCR testing. Start: 10-30-[address] Imani Helm DO Work Phone: Comment on above: Antibody Result: Int erpretationNon-Reactive: Non- ImmuneReactive: ImmuneThe following results were obtained with the [employer] Rubella IgG assay. Results from assays of other manufacturers cannot be used interchangeably. Start: 10-30-2024 Serologic test for syphilis Dr. Imani Helm DO Work Phone: Start: 10-24-[address] Imani Helm DO Work Phone: Start: 10-09-2024 Us retroperitoneal r eal time w/image complete Jesse Edwards CPNP Work Phone: Start: 10-09-2024 Replace gastrostomy/cecostomy tube percutaneous Andres Fitzgerald GENERAL INTERNIST AND PHYSICIAN LEADER Work Phone: Start: 04-10-2024 Replace gastrostomy/cecostomy tube percutaneous Chaitanya Akins GENERAL INTERNIST AND PHYSICIAN LEADER Work Phone: Start: 04-10-2024 Radiologic exam abdo men 1 view Chaitanya Akins GENERAL INTERNIST AND PHYSICIAN LEADER Work Phone: Start: 01-22-2023 Assay of progesterone V jasmine Guerrero SHEAR ASSEMBLER.AUTOMATION MACHINE OPERATOR Work Phone: Start: 11-23-2022 Assay of estradiol [place] dawit Dudziak SHEAR ASSEMBLER.AUTOMATION MACHINE OPERATOR Work Phone: Start: 11-22-2022 Us pelvic nonobstetr ic image dcmtn limited/f/u Stuart Dudziak SHEAR ASSEMBLER.AUTOMATION MACHINE OPERATOR Work Phone: Start: 11-22-2022 Assay of estradiol [place] dawit Dudziak SHEAR ASSEMBLER.AUTOMATION MACHINE OPERATOR Work Phone: Start: 11-15-2022 Assay of estradiol [place] dawit Dudziak SHEAR ASSEMBLER.AUTOMATION MACHINE OPERATOR Work Phone: Start: 09-07-2022 Us pelvic nonobstetr ic image dcmtn limited/f/u Marina Mindzora SHEAR ASSEMBLER.AUTOMATION MACHINE OPERATOR Work Phone: Start: 09-07-2022 Assay of estradiol Avery en Mindzora SHEAR ASSEMBLER.AUTOMATION MACHINE OPERATOR Work Phone: Start: 09-04-2022 Us pelvic nonobstetr ic image dcmtn limited/f/u Marina Mindzora SHEAR ASSEMBLER.AUTOMATION MACHINE OPERATOR Work Phone: Start: 09-04-2022 Assay of estradiol Avery en Mindzora SHEAR ASSEMBLER.AUTOMATION MACHINE OPERATOR Work Phone: Start: 08-29-2022 Us pelvic nonobstetr ic image dcmtn limited/f/u Marina Mindzora SHEAR ASSEMBLER.AUTOMATION MACHINE OPERATOR Work Phone: Start: 08-11-2022 Us pelvic nonobstetr ic image dcmtn limited/f/u Shelby Rojas PA-C Work Phone: Start: 08-11-2022 [facility] ULTRASOUND GUIDE D PROCEDURE Mackenzie Duran MD Work Phone: Start: 08-10-2022 Gonadotropin chorion ic quantitative Ysabel Scott MD Work Phone: Start: 08-09-2022 Us pelvic nonobstetr ic image dcmtn limited/f/u Shelby Rojas PA-C Work Phone: Start: 08-09-2022 Assay of estradiol Elizabeth dawit Dudziak SHEAR ASSEMBLER.AUTOMATION MACHINE OPERATOR Work Phone: Start: 08-08-2022 Us pelvic nonobstetr ic image dcmtn limited/f/u Shelby Smolen PA-C Work Phone: Start: 08-08-2022 Assay of estradiol Javi Scott MD Work Phone: Start: 08-07-2022 Us pelvic nonobstetr ic image dcmtn limited/f/u Shelby Smolen PA-C Work Phone: Start: 08-07-2022 Assay of estradiol [place] dawit Dudziak SHEAR ASSEMBLER.AUTOMATION MACHINE OPERATOR Work Phone: Start: 08-03-2022 Us pelvic nonobstetr ic image dcmtn limited/f/u Shelby Smolen PA-C Work Phone: Start: 08-03-2022 Assay of estradiol Panda Duran MD Work Phone: Start: 08-02-2022 Us pelvic nonobstetr ic image dcmtn limited/f/u Stuart Dudziak SHEAR ASSEMBLER.AUTOMATION MACHINE OPERATOR Work Phone: Start: 08-02-2022 Assay of estradiol Chante Cardenas MD Work Phone: Start: 07-25-2022 Us pelvic nonobstetr ic image dcmtn limited/f/u Shelby Smolen PA-C Work Phone: Start: 07-25-2022 Assay of estradiol [place] dawit Dudziak SHEAR ASSEMBLER.AUTOMATION MACHINE OPERATOR Work Phone: Start: 07-06-2022 Us pelvic nonobstetr ic image dcmtn limited/f/u Stuart Dudziak SHEAR ASSEMBLER.AUTOMATION MACHINE OPERATOR Work Phone: Start: 07-06-2022 Assay of estradiol Iryn a Smolen PA-C Work Phone: Start: 05-01-2022 Us pelvic nonobstetr ic image dcmtn limited/f/u Stuart Dudziak SHEAR ASSEMBLER.AUTOMATION MACHINE OPERATOR Work Phone: Start: 05-01-2022 Assay of estradiol [place] dawit Dudziak SHEAR ASSEMBLER.AUTOMATION MACHINE OPERATOR Work Phone: Start: 04-24-2022 Us pelvic nonobstetr ic image dcmtn limited/f/u Stuart Dudziak SHEAR ASSEMBLER.AUTOMATION MACHINE OPERATOR Work Phone: Start: 04-24-2022 Assay of estradiol [place] dawit Dudziak SHEAR ASSEMBLER.AUTOMATION MACHINE OPERATOR Work Phone: Start: 02-24-2022 Assay of estradiol [place] dawit Dudziak SHEAR ASSEMBLER.AUTOMATION MACHINE OPERATOR Work Phone: Start: 02-22-2022 Us pelvic nonobstetr ic image dcmtn limited/f/u Aiyana A Yozipovich SHEAR ASSEMBLER.AUTOMATION MACHINE OPERATOR Work Phone: Start: 02-22-2022 Assay of estradiol Albino y A Yozipovich SHEAR ASSEMBLER.AUTOMATION MACHINE OPERATOR Work Phone: Start: 01-26-2022 Assay of estradiol [place] dawit Dudziak SHEAR ASSEMBLER.[facility] Work Phone: Start: 12-21-2021 Urine test [...] Assay of estradiol Albino y A Yozipovich SHEAR ASSEMBLER.[facility] Work Phone: Plan of Treatment Date Care Activity Detail Author Start: 03-03-2035 Tetanus vaccination TETANUS [facility] Start: 10-08-2026 End: 10-09-2026 US Kidney US Kidney Imaging Routine Anorectal malformation Expected: 10/08/2026 (Approximate), Expires: 10/09/2026 [facility] Work Phone: Comment on above: Expected: [...] Up Visit [facility] [place] [address] [facility] [address] [place] [address] [phone] Raquel Lainez MD [address] [facility] [address] [place] [phone] [facility] [place] Start: 04-02-2025 End: 04-02-2025 Follow-up encounter 04/02/2025 8:15 AM EDT Follow Up Visit [facility] [address] [phone] [facility] Start: 04-01-2025 RSV Immunization (1 - Risk 1-dose series) RSV Immunization (1 - Risk 1-dose series) [facility] Start: 04-01-2025 RSV VACCINE (1 - Ris k 1-dose series) RSV VACCINE (1 - Risk 1-dose series) [facility] Start: 03-31-2025 End: 03-31-2025 Follow-up encounter 03/31/2025 2:30 PM EDT Follow Up Visit [facility] [place] 160 [facility] [address] [place] [phone] Raquel Lainez MD 160 [facility] [address] [place] [phone] [facility] [place] Start: 03-17-2025 End: 03-17-2025 Follow-up encounter 03/17/2025 8:30 AM EDT Follow Up Visit [facility] [place] 160 [facility] [address] [place] [phone] Raquel Lainez MD [address] [phone] [facility] [place] Start: 03-03-2025 End: 03-03-2025 Follow-up encounter 03/03/2025 9:30 AM EDT Follow Up Visit [facility] [place] [address] [phone] Raquel Lainez MD [address] [phone] [facility] [place] Start: 02-19-2025 CBC W Auto Differential panel - Blood [facility] Start: 02-19-2025 Measurement of gluco se 2 hours after glucose challenge for glucose tolerance test [facility] Start: 02-19-2025 Serologic test for syphilis [facility] Start: 02-19-2025 [facility] Start: 02-18-2025 End: 02-04-2026 heart monitoring ECHOCARDIOGRAM, ECHO Routine resulting from in vitro fertilization, antepartum Expected: 02/18/2025 (Approximate), Expires: 02/04/2026 [facility] Work Phone: Comment on above: Expected: 02/18/2025 (Approximate), Expires: 02/04/2026 Start: 02-16-2025 COVID-19 VACCINE ( season) COVID-19 VACCINE ( season) [facility] Start: 02-16-2025 Influenza vaccination INFLUENZA VACC INE (#1) [facility] Start: 01-22-2025 End: 01-22-2026 OB ultrasound panel US OB GROWTH/DATING > 14WEEKS Imaging Routine Encounter for ultrasound to assess interval growth of fetus AMA (advanced maternal age) multigravida 35+, second trimester Expected: 01/22/2025, Expires: 01/22/2026 [facility] Comment on above: Expected: 01/22/2025 , Expires: 01/22/2026 Start: 01-22-2025 End: 01-22-2025 Follow-up encounter 01/22/2025 1:00 PM EDT Follow Up Visit [facility] [address] [place] [phone] [facility] Start: 12-30-2024 End: 12-30-2025 [id number] [Presence] in Serum or Plasma [facility] Comment on above: Expected: 12/30/2024 , Expires: 12/30/2025 Start: 12-30-2024 End: 12-30-2025 OB ultrasound panel US OB GROWTH/DATING > 14WEEKS Imaging Routine Encounter for ultrasound to assess interval growth of fetus Encounter for follow-up ultrasound of anatomy Expected: 12/30/2024, Expires: 12/30/2025 [facility] Comment on above: Expected: 12/30/2024 , Expires: 12/30/2025 Start: 10-30-2024 CBC W Auto Differential panel - Blood [facility] Start: 10-30-2024 Hepatitis C antibody measurement [facility] Start: 10-30-2024 Rubella IgG measurement [facility] Start: 10-30-2024 Serologic test for syphilis [facility] Start: 10-30-2024 T4 free measurement [facility] Start: 10-30-2024 Thyroid stimulating hormone measurement [facility] Start: 10-30-2024 [facility] Start: 10-09-2024 End: 04-10-2025 IR Consult IR Consult Imaging Routine Anorectal malformation Other constipation History of antegrade continence enema procedure Expected: 10/09/2024 (Approximate), Expires: 04/10/2025 [facility] Comment on above: Expected: 10/09/2024 (Approximate), Expires: 04/10/2025 Start: 10-09-2024 End: 04-10-2025 XR Abdomen Supine and Upright XR Abdomen - Supine Imaging Routine Anorectal malformation Other constipation History of antegrade continence enema procedure Expected: 10/09/2024 (Approximate), Expires: 04/10/2025 [facility] Work Phone: Comment on above: Expected: 10/09/2024 (Approximate), Expires: 04/10/2025 Start: 10-09-2024 End: 10-09-2024 Patient encounter procedure Ultrasound [facility] Start: 05-09-2024 End: 04-09-2025 XR Abdomen Supine and Upright XR Abdomen - Supine Imaging Routine Anorectal malformation Expected: 05/09/2024 (Approximate), Expires: 04/09/2025 [facility] Work Phone: Comment on above: Expected: 05/09/2024 (Approximate), Expires: 04/09/2025 Start: 04-10-2024 Subsequent hospital visit by physician 04/10/2024 1:30 PM EDT Hospital Encounter Interventional [address] [phone] Discharge Disposition: Home Interventional Rad [facility] Start: 04-10-2024 End: 04-10-2024 Patient encounter procedure [facility] Start: 04-09-2024 End: 04-08-2025 IR Consult IR Consult Imaging Routine Anorectal malformation Expected: 04/09/2024 (Approximate), Expires: 04/08/2025 [facility] Work Phone: Comment on above: Expected: 04/09/2024 (Approximate), Expires: 04/08/2025 Start: 02-17-2024 COVID-19 Vaccine ( season) COVID-19 Vaccine ( season) [facility] Start: 02-17-2024 Influenza vaccination Influenza Vacc ine (#1) [facility] Start: 02-16-2023 Influenza vaccination INFLUENZA (#1) [facility] Start: 08-08-2022 End: 10-08-2022 Estradiol (E2) [Mass/volume] in Serum or Plasma ESTRADIOL-17B BLD Lab STAT Female infertility Expected: 08/08/2022, Expires: 10/08/2022 [facility] Work Phone: Comment on above: Expected: 08/08/2022 , Expires: 10/08/2022 Start: 08-08-2022 End: 10-08-2022 Lutropin [Units/volume] in Serum or Plasma LUTEINIZING HORMONE Lab STAT Female infertility Expected: 08/08/2022, Expires: 10/08/2022 [facility] Work Phone: Comment on above: Expected: 08/08/2022 , Expires: 10/08/2022 Start: 08-08-2022 End: 10-08-2022 Progesterone [Mass/volume] in Serum or Plasma PROGESTERONE BLD Lab STAT Female infertility Expected: 08/08/2022, Expires: 10/08/2022 [facility] Work Phone: Comment on above: Expected: 08/08/2022 , Expires: 10/08/2022 Start: 08-01-2022 End: 10-01-2022 Estradiol (E2) [Mass/volume] in Serum or Plasma ESTRADIOL-17B BLD Lab STAT Female infertility Expected: 08/01/2022 (Approximate), Expires: 10/01/2022 [facility] Work Phone: Comment on above: Expected: 08/01/2022 (Approximate), Expires: 10/01/2022 Start: 07-26-2022 End: 09-25-2022 Lutropin [Units/volume] in Serum or Plasma LUTEINIZING HORMONE Lab STAT Female infertility Expected: 07/26/2022, Expires: 09/25/2022 [facility] Work Phone: Comment on above: Expected: 07/26/2022 , Expires: 09/25/2022 Start: 07-26-2022 End: 09-25-2022 Progesterone [Mass/volume] in Serum or Plasma PROGESTERONE BLD Lab STAT Female infertility Expected: 07/26/2022, Expires: 09/25/2022 [facility] Work Phone: Comment on above: Expected: 07/26/2022 , Expires: 09/25/2022 Start: 07-24-2022 End: 07-24-2023 FOLLICULAR US [facility]I FOLLICULAR US [facility]I Anc Imaging Routine Female infertility Expected: 07/24/2022, Expires: 07/24/2023 [facility] Work Phone: Comment on above: Expected: 07/24/2022 , Expires: 07/24/2023 Start: 06-18-2022 DEPRESSION ASSESSMENT DEPRESSION ASS ESSMENT [facility] Start: 05-01-2022 End: 07-01-2022 WHIIVF ANTI MULLERIAN HORMONE WHIIVF ANTI MULLERIAN HORMONE Lab STAT Encounter for fertility testing Expected: 05/01/2022, Expires: 07/01/2022 [facility] Work Phone: Comment on above: Expected: 05/01/2022 , Expires: 07/01/2022 Start: 04-24-2022 End: 06-24-2022 Hematocrit [Volume Fraction] of Blood HEMATOCRIT (HCT) Lab STAT Female infertility Expected: 04/24/2022, Expires: 06/24/2022 [facility] Work Phone: Comment on above: Expected: 04/24/2022 , Expires: 06/24/2022 Start: 03-16-2022 End: 05-16-2022 Choriogonadotropin.bet a subunit [Units/volume] in Serum or Plasma HCG QUANTITATIVE Lab STAT examination or test, unconfirmed Expected: 03/16/2022, Expires: 05/16/2022 [facility] Work Phone: Comment on above: Expected: 03/16/2022 , Expires: 05/16/2022 Start: 02-16-2022 Influenza vaccination C [facility] Start: 12-26-2021 End: 02-25-2022 Estradiol (E2) [Mass/volume] in Serum or Plasma ESTRADIOL-17B BLD Lab STAT Primary female infertility Expected: 12/26/2021, Expires: 02/25/2022 [facility] Work Phone: Comment on above: Expected: 12/26/2021 , Expires: 02/25/2022 Start: 12-26-2021 End: 02-25-2022 Progesterone [Mass/volume] in Serum or Plasma PROGESTERONE BLD Lab STAT Primary female infertility Expected: 12/26/2021, Expires: 02/25/2022 [facility] Work Phone: Comment on above: Expected: 12/26/2021 , Expires: 02/25/2022 Start: 10-09-2021 End: 12-09-2021 PROGESTERONE BLD PROGESTERONE BLD Lab STAT Female infertility Expected: 10/09/2021 (Approximate), Expires: 12/09/2021 [facility] Work Phone: Comment on above: Expected: 10/09/2021 (Approximate), Expires: 12/09/2021 Start: 10-08-2021 End: 12-08-2021 Estradiol (E2) [Mass/volume] in Serum or Plasma ESTRADIOL-17B BLD Lab Routine Encounter for fertility testing Expected: 10/08/2021, Expires: 12/08/2021 [facility] Work Phone: Comment on above: Expected: 10/08/2021 , Expires: 12/08/2021 Start: 10-07-2021 End: 01-06-2022 Estradiol (E2) [Mass/volume] in Serum or Plasma ESTRADIOL-17B BLD Lab STAT Female infertility Expected: 10/07/2021, Expires: 01/06/2022 [facility] Work Phone: Comment on above: Expected: 10/07/2021 , Expires: 01/06/2022 Start: 10-06-2021 End: 12-06-2021 PROGESTERONE BLD PROGESTERONE BLD Lab STAT Female infertility Expected: 10/06/2021, Expires: 12/06/2021 [facility] Work Phone: Comment on above: Expected: 10/06/2021 , Expires: 12/06/2021 Start: 09-22-2021 End: 12-22-2021 Estradiol (E2) [Mass/volume] in Serum or Plasma ESTRADIOL-17B BLD Lab STAT Female infertility Expected: 09/22/2021, Expires: 12/22/2021 [facility] Work Phone: Comment on above: Expected: 09/22/2021 , Expires: 12/22/2021 Start: 06-18-2021 DEPRESSION ASSESSMENT DEPRESSION ASS ESSMENT [facility] Start: 12-25-2020 COVID-19 VACCINE (3 - Booster for Moderna series) COVID-19 VACCINE (3 - Booster for Moderna series) [facility] Start: 09-22-2020 COVID-19 VACCINE (3 - Booster for Moderna series) COVID-19 VACCINE (3 - Booster for Moderna series) [facility] Start: 09-22-2020 COVID-19 VACCINE (3 - Moderna series) COVID-19 VACCINE (3 - Moderna series) [facility] Start: 2016 HPV TESTING HPV TESTING [facility] Start: 2013 HPV Vaccine (1 - 3-dose SCDM series) HPV Vaccine (1 - 3-dose SCDM series) [facility] Start: 08-28-2007 PAP TESTING PAP TESTING [facility] Start: 08-28-2007 Screening for malignant neoplasm of cervix CERVICAL CANCER SCREENING DISCUSSION [facility] Start: 2005 Hepatitis B vaccination HEP B VACCINE (1 of 3 - 19+ 3-dose series) [facility] Start: 2005 Hepatitis B Vaccine (1 of 3 - 19+ 3-dose series) Hepatitis B Vaccine (1 of 3 - 19+ 3-dose series) [facility] Start: 2005 Third diphtheria, tetanus and acellular pertussis (DTaP) vaccination TDAP (ADULT) [facility] Start: 2005 Urine microalbumin profile DTAP,TDAP,TD (1 - Tdap) [facility] Start: 2001 HIV screening HIV SCREENING DISCUSSION [facility] Start: 08-28-1999 Varicella Vaccine (1 of 2 - 13+ 2-dose series) Varicella Vaccine (1 of 2 - 13+ 2-dose series) [facility] Start: 1998 Adult depression screening assessment DEPRESSION SCREENING [facility] Start: 1993 DTaP/Tdap/Td Vaccine (1 - Tdap) DTaP/Tdap/Td Vaccine (1 - Tdap) [facility] Start: 08-28-1987 MMR Vaccine (1 of 1 - Standard series) MMR Vaccine (1 of 1 - Standard series) [facility] Start: 1986 HEPATITIS B (1 of 3 - 3-dose series) HEPATITIS B (1 of 3 - 3-dose series) [facility] Start: 1986 Hepatitis C screening HEPATITI S C VIRUS SCREENING [facility] Start: 1986 Tetanus vaccination TETANUS [facility] Start: 1986 Thyroid stimulating hormone measurement TSH [facility] CBC W Auto Differential panel - Blood [facility] CBC W Auto Differential panel - Blood [facility] CHG US PREG UTERUS REAL TIME F/U TRNSABDL PER FETUS CHG US PREG UTERUS REAL TIME F/U TRNSABDL PER FETUS IN - OFFICE PERFORMED IMAGING Routine Encounter for follow-up ultrasound of anatomy 22 weeks gestation of AMA (advanced maternal age) multigravida 35+, second trimester Ordered: 01/22/2025 [facility] Comment on above: Ordered: 01/22/2025 CHG US PREG UTERUS REAL TIME W/IMAGE DCMTN TRANSVAG CHG US PREG UTERUS REAL TIME W/IMAGE DCMTN TRANSVAG IN - OFFICE PERFORMED IMAGING Routine Encounter for screening for risk of pre-term labor 18 weeks gestation of Ordered: 12/30/2024 [facility] Comment on above: Ordered: 12/30/2024 CHG US PREG UTERUS W/DETAIL ZORAN 1ST GESTATION CHG US PREG UTERUS W/DETAIL ZORAN 1ST GESTATION IN - OFFICE PERFORMED IMAGING Routine Encounter for anatomic survey 18 weeks gestation of AMA (advanced maternal age) multigravida 35+, second trimester Ordered: 12/30/2024 [facility] Comment on above: Ordered: 12/30/2024 Erythrocyte mean corpuscular volume determination [facility] Erythrocyte mean corpuscular volume determination [facility] End: 04-11-2023 Estradiol (E2) [Mass/volume] in Serum or Plasma ESTRADIOL-17B BLD Lab STAT Encounter for fertility testing 6 Occurrences starting 04/11/2022 until 04/11/2023 [facility] Work Phone: Comment on above: 6 Occurrences starti ng 04/11/2022 until 04/11/2023 End: 08-24-2022 Estradiol (E2) [Mass/volume] in Serum or Plasma ESTRADIOL-17B BLD Lab STAT Female infertility 6 Occurrences starting 07/24/2022 until 08/24/2022 [facility] Work Phone: Comment on above: 6 Occurrences starti ng 07/24/2022 until 08/24/2022 End: 10-30-2022 Estradiol (E2) [Mass/volume] in Serum or Plasma ESTRADIOL-17B BLD Lab STAT Female infertility 6 Occurrences starting 08/28/2022 until 10/30/2022 [facility] Work Phone: Comment on above: 6 Occurrences starti ng 08/28/2022 until 10/30/2022 End: 10-22-2021 FOLLICULAR US WHI FOLLICULAR US [facility]I Anc Imaging Routine Female infertility 6 Occurrences starting 09/22/2021 until 10/22/2021 [facility] Work Phone: Comment on above: 6 Occurrences starti ng 09/22/2021 until 10/22/2021 End: 11-05-2021 FOLLICULAR US WHI FOLLICULAR US [facility]I Anc Imaging Routine Female infertility 6 Occurrences starting 10/06/2021 until 11/05/2021 [facility] Work Phone: Comment on above: 6 Occurrences starti ng 10/06/2021 until 11/05/2021 FOLLICULAR US WHI FOLLICULAR US [facility] Anc Imaging Routine Primary female infertility Ordered: 12/26/2021 [facility] Work Phone: Comment on above: Ordered: 12/26/2021 End: 03-24-2022 FOLLICULAR US WHI FOLLICULAR US [facility] Anc Imaging Routine Female infertility 6 Occurrences starting 02/22/2022 until 03/24/2022, [address] [facility] Work Phone: Comment on above: 6 Occurrences starti ng 02/22/2022 until 03/24/2022, 1 completed End: 04-11-2023 FOLLICULAR US WHI FOLLICULAR US [facility] Anc Imaging Routine Encounter for fertility testing Daily for 6 Occurrences starting 04/11/2022 until 04/11/2023 [facility] Work Phone: Comment on above: Daily for 6 Occurren javy starting 04/11/2022 until 04/11/2023 End: 10-30-2022 FOLLICULAR US WHI FOLLICULAR US [facility] Anc Imaging Routine Female infertility Daily for 6 Occurrences starting 08/28/2022 until 10/30/2022 [facility] Work Phone: Comment on above: Daily for 6 Occurren javy starting 08/28/2022 until 10/30/2022 Hematocrit [Volume Fraction] of Blood [facility] Hematocrit [Volume Fraction] of Blood [facility] Hemoglobin [Mass/volume] in Blood [facility] Hemoglobin [Mass/volume] in Blood [facility] Hepatitis B virus surface Ag [Presence] in Serum [facility] Hepatitis C antibody measurement [facility] Leukocytes [#/volume ] in Blood [facility] Leukocytes [#/volume ] in Blood [facility] Mean corpuscular hemoglobin concentration determination [facility] Mean corpuscular hemoglobin concentration determination [facility] Mean corpuscular hemoglobin determination [facility] Mean corpuscular hemoglobin determination [facility] Measurement of gluco se 2 hours after glucose challenge for glucose tolerance test [facility] Neutrophil count [facility] Neutrophil count [facility] Neutrophil percent differential count [facility] Neutrophil percent differential count [facility] End: 11-30-2022 OFFICE HYSTEROSCOPY OFFICE HYSTEROSCOPY Procedures Routine Encounter for fertility testing 1 Occurrences starting 12/01/2021 until 11/30/2022 [facility] Work Phone: Comment on above: 1 Occurrences starti ng 12/01/2021 until 11/30/2022 Platelets [#/volume] in Blood [facility] Platelets [#/volume] in Blood [facility] Procedure [facility] Red blood cell count [facility] Red blood cell count [facility] Red cell distributio n width determination [facility] Red cell distributio n width determination [facility] Rubella IgG measurement [facility] Serologic test for syphilis [facility] Serologic test for syphilis [facility] T4 free measurement [facility] Thyroid stimulating hormone measurement [facility] Immunizations Immunization Date Immunization Notes Care Provider [facility] 03-03-2025 tetanus toxoid, reduced diphtheria toxoid, and acellular pertussis vaccine, adsorbed Raquel Lainez MD Work Phone: [facility] 04-27-2022 influenza, injectabl e, quadrivalent, preservative free Lyn Arguelles MD Work Phone: [facility] 04-27-2022 influenza virus vaccine, unspecified formulation Andres Fitzgerald APN Work Phone: [facility] 07-28-2020 COVID-19 vaccine, fu ll dose (MODERNA) Aiyana Harman SHEAR ASSEMBLER.AUTOMATION MACHINE OPERATOR Work Phone: [facility] 06-30-2020 COVID-19 vaccine, fu ll dose (MODERNA) Aiyanasamreen Harman SHEAR ASSEMBLER.AUTOMATION MACHINE OPERATOR Work Phone: [facility] 04-06-2020 influenza virus vaccine, unspecified formulation Aiyana Harman SHEAR ASSEMBLER.AUTOMATION MACHINE OPERATOR Work Phone: [facility] 03-24-2020 influenza, seasonal, injectable Aiyana Harman SHEAR ASSEMBLER.AUTOMATION MACHINE OPERATOR Work Phone: [facility] Payers Date Payer Category Payer Managed Care (unspecified) [facility] P[facility] POS [id number] 2024 Self-pay 2022 Unknown [id number] 2021 Private Health Insurance [facility] CHOICE PLUS [id number] 2021-Present [phone] [address] [place] [address] O [id number]. [id number] 2021 Private Health Insurance [id number] .[id number]. [id number] 2021 Unknown [id number] 2020 Unknown [id number] 2015 Unknown [id number] 1986 Unknown [id number] 2.16.840.1.310553.3.579.2. 594 1986 Unknown [id number] 2.16.840.1.520504.3.579.2. 651 1986 Unknown [id number] 2.16.840.1.635138.3.579.2. 598 1986 Unknown [id number] 2.16.840.1.724053.3.579.2. 598 1986 Unknown [id number] 2.16.840.1.670838.3.579.2. 479 1986 Unknown [id number] 2.16.840.1.792331.3.579.2. 479 1986 Unknown [id number] 2.16.840.1.741562.3.579.2. 430 1986 Unknown [id number] 2.16.840.1.926438.3.579.2. 430 1986 Unknown [id number] 2.16.840.1.801498.3.579.2. 430 1986 Unknown [id number] 2.16.840.1.106271.3.579.2. 430 1986 Unknown [id number] 2.16.840.1.461869.3.579.2. 430 1986 Unknown [id number] 2.16.840.1.964722.3.579.2. 430 1986 Unknown [id number] 2.16.840.1.529489.3.579.2. 430 1986 Unknown [id number] 2.16.840.1.112842.3.579.2. 594 1986 Unknown [id number] 2.16.840.1.375288.3.579.2. 594 1986 Unknown [id number] 2.16.840.1.969742.3.579.2. 594 1986 Unknown [id number] 2.16.840.1.021090.3.579.2. 594 1959 Unknown [id number] Self-pay [id number] Unknown [id number] Unknown [id number] 2.16.840.1.506766.3.579.2. 462 Unknown [id number] 2.16.840.1.105982.3.579.2. 462 Unknown [id number] 2.16.840.1.295084.3.579.2. 462 Unknown [id number] 2.16.840.1.709139.3.579.2. 462 Unknown [id number] 2.16.840.1.474965.3.579.2. 462 Unknown [id number] 2.16.840.1.773937.3.579.2. 462 Unknown [id number] 2.16.840.1.901503.3.579.2. 462 Unknown [id number] 2.16.840.1.064415.3.579.2. 462 Unknown [id number] 2.16.840.1.916925.3.579.2. 462 Unknown [id number] 2.16.840.1.472908.3.579.2. 462 Unknown [id number] 2.16.840.1.817731.3.579.2. 462 Unknown [id number] 2.16.840.1.388389.3.579.2. 462 Unknown [id number] 2.16.840.1.677202.3.579.2. 462 Unknown [id number] 2.16.840.1.291350.3.579.2. 462 Unknown [id number] 2.16.840.1.622679.3.579.2. 462 Unknown [id number] 2.16.840.1.936340.3.579.2. 462 Unknown [id number] 2.16.840.1.536829.3.579.2. 462 Social History Date Type Detail Facility Start: 10-01-2019 End: 12-30-2024 Tobacco smoking status NHIS Never smoked tobacco [facility] Work Phone: Start: 10-01-2019 End: 12-30-2024 Tobacco use and exposure Smokeless tobacco non-user [facility] Work Phone: Start: 03-16-2021 End: 12-30-2024 Alcohol intake Ex-drinker (finding) [facility] Start: 1985 Sex Assigned At Female [facility] Start: 09-10-2021 End: 04-24-2022 Exposure to SARS-CoV-2 (event) Not sure [facility] Work Phone: Start: 10-06-2021 End: 10-16-2021 Exposure to SARS-CoV-2 (event) Unable to assess [facility] Start: 10-10-2021 End: 12-30-2024 History of Social function [facility] Start: 10-10-2021 End: 12-30-2024 Tobacco use panel [facility] National Score (1-100), lower number is lower risk Not on file [facility] Start: 12-23-2019 Gender identity Identifies as female gender (finding) [facility] Start: 12-23-2019 Sexual orientation Heterosexual (fin ding) [facility] Tobacco smoking status INIS Tobacco smoking consumption unknown [facility] (I/We) worried whether (my/our) food would run out before (I/we) got money to buy more. Never true [facility] In the past 12 months, was there a time when you were not able to pay the mortgage or rent on time? No [facility] Start: 1985 [facility] Start: 04-14-2016 Alcohol Alcohol [place] [facility] Start: 04-14-2016 Tobacco Use Tobacco Use [place] [facility] Start: 09-03-2024 [facility] Start: 07-21-2012 Sex Female (finding) [facility] NEGATED: Highlighted rowStart: SUZYF History of tobacco use Passive smoker [facility] Medical Equipment Procedure Code Equipment Code [...] Lainez MD documented in this encounter [facility] 02-19-2025 Progress note [facility] 02-09-2025 History of Present illness Narrative See Echo Report documented in this encounter [facility] 02-09-2025 Instructions Frederick Beck RN - 02/09/2025 1:00 PM EDT Images from the original note were not included. Call your primary OB or go to the nearest hospital if you think you are in labor. Call 911 for any emergency. All delivery plans should be discussed with your primary OBGYN or maternal medicine provider. Call [phone] ([phone]), option 2 to speak with the Center [...] your doctor right away. You can visit [email or web address] or scan the QR Code below to download the free jerri to help track your baby's kick counts. documented in this encounter [facility] 01-22-2025 History of Present illness Narrative An AUTOMOTIVE WORKER FOREMAN ultrasound was performed today. Our ultrasound exams are reported in the system. The complete report, including recommendations, are faxed separately to outside physician offices. If your office utilizes [employer], the ultrasound reports can be found under the imaging tab in Chart Review. Please click on view report under imaging report and not show images. If accessing this information through [employer], it is located under the Other Results tab and is not located in the documents portion of this system documented in this encounter [facility] 12-30-2024 History of Present illness Narrative Latonya Rodarte was offered and declined a Medical American History Teacher for this exam/procedure/test 12/30/2024. Latonya Rodarte had venipuncture blood draw today in office as requested by Dr Lainez. (Patient's provider is in office today.) Venipuncture performed successfully Number of attempts: 1 Site of draw: right arm Excessive Bleeding or Bruising at draw site: No How did the patient tolerate the procedure? well Gold Tube: 1 documented in this encounter [facility] 12-30-2024 History of Present illness Narrative An AUTOMOTIVE WORKER FOREMAN ultrasound was performed today. Our ultrasound exams are reported in the system. The complete report, including recommendations, are faxed separately to outside physician offices. If your office utilizes [facility], the ultrasound reports can be found under the imaging tab in Chart Review. Please click on view report under imaging report and not show images. If accessing this information through [employer], it is located under the Other Results tab and is not located in the documents portion of this system documented in this encounter [facility] 11-18-2024 Radiology Diagnostic study note [facility] Imaging Services [address] [place] [address] Transvaginal w/Preg US MR#: [id number] Acct: [id number] Name: LATONYA RODARTE Rep #: [id number] : 1985 F 39 From: Etelvina Dominguez MD PCP: Dr. Imani Helm DO Status: REG CLI Study:Transvaginal w/Preg US Date of Exam: 11/18/24 Exam# [id number] Ordering Dr: Jesse Horvath NP TOOL CRIB ATTENDANT-C PROCEDURE: TRANSVAGINAL W/PREG US 11/18/2024 REASON FOR [...] ovaries are not well seen. Reading Location: [id number] CC: FERNANDO Horvath; Dr. 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 November 26, 2024 2:33pm History of miscarriage, currently acute November 26 2:33pm Hx of maternal blood transfusion, currently acute November 26, 2024 2:33pm Hypothyroidism affecting acute November 26, 2024 2:33pm In vitro fertilization acute [facility] 2024 2:33pm acute November 26 2:33pm [...] 9:02am Tethered cord chronic February 192024 9:02am [facility] Work Phone: 1(334) 703-676504-29-2025 Evaluation note* Diagnosis Onset Date Resolution Status [...] 11:26am Tethered cord chronic October 24 11:26am [facility] Work Phone: 1(894) 759-699704-29-2025 Evaluation note* Diagnosis Onset Date Resolution Status [...] of back resolved October 30, 2024 9:03am [facility] Work Phone: 1(797) 830-812304-29-2025 Evaluation note* Diagnosis Onset Date Resolution Status [...] Tethered cord chronic November 06 025 2:01pm [facility] Work Phone: 1(938) 271-718404-29-2025 Evaluation note* Diagnosis Onset Date Resolution Status [...] Tethered cord chronic November 13, 025 8:07am [facility] Work Phone: 1(344) 469-513204-29-2025 Evaluation note* Diagnosis Onset Date Resolution Status [...] cord chronic November 18, 2 025 2:10pm [facility] Work Phone: 1(861) 331-697204-29-2025 Evaluation note* Diagnosis Onset Date Resolution Status [...] 26, 2024 2:33pm Anxiety and depression acute [facility] 2024 2:33pm ARM (anorectal malformation) acute [...] 2024 2:33pm 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 2: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 [facility] [employer] [facility] Work Phone: 1(489) 684-337904-29-2025 Evaluation note* Diagnosis Onset Date Resolution Status [...] 26, 2024 2:33pm Anxiety and depression acute [facility] 2024 2:33pm ARM (anorectal malformation) acute [...] Tethered cord chronic December 24, 025 11:40am [facility] Work Phone: 1(465) 266-148204-29-2025 Evaluation note* Diagnosis Onset Date Resolution Status [...] 2024 2 :10pm Anxiety and depression acute [facility] 2024 2:10pm 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 7 weeks . Procedure note: A timeout was performed per protocol. The patient's cecostomy tube was exchanged over a wire. The balloon was inflated and the line flushed. 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 From a urological perspective, Latonya also has a reported history of bilateral kidney stones and bilateral VUR s/p bilateral ureteral reimplantation (Allyssa, 2000). She was last seen by Urology in [facility] clinic in November 2021 where she [...] I independently reviewed the following studies from [facility]. Renal Ultrasound 10/09/2024 CHART REVIEW In preparation for the care of this patient, I have independently reviewed the past medical recordsavailable to me at the time of the visit which included both [facility] recordsand outside facilities. I have reviewed [...] Informant: patient HPI 39 yo female from [place], [place] () with ARM (rectovaginal) s/p cutback [...] trouble again in September 2019. Lived in [facility] in [place] was directed to Dr. Beck in January of 2020 due to fertility issues with wanting to get by Dr. Sebastian in [employer]. Was having trouble getting catheter in was using a 12F. Was having to lay down to put the catheter in, did not have any is sues with leaking at that time. Revision 05/[address] Marlon Beck in conjunction with gynecology. Production Control Expediter couldn't get to left sided fallopian tube [...] visit: 12/01/2021 -PFPT: referral for closer to [facility] to help to decrease sit times -continue [...] I reviewed previous information from other specialties/institutions. Uro/arnp Physical Exam Constitutional: Appearance: Normal appearance. HENT: [...] found. Assessment 38 year old female from [place], [place] () with ARM (rectovaginal) s/p cutback [...] 2025 Lis Wilson DO, FACS, FASCRS, MS Physical Therapy Instructor [facility] (p) [phone] 35 minutes were spent by the Attending (precepting physician) or Advanced Practice Provider time inthe care of this patient. This includes face to face time and non face to face including the following: Preparing to see the patient (review of tests) Obtaining and/or reviewing separately obtained history Counseling and educating the patient/family/caregiver Ordering medications, tests, or procedures Referring/communicating with other health day care attendant Independently interpreting results and communicating results to [...] complaints--has had Utis. No maternal cardiac anomalies. 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 Pt has a history of tethered cord: d/w pt need for an anesthesia consult at [facility] to assess for regional anesthesia at [...] for obstructive symptoms - Dr. Romero Negron, [facility] HX EXAM UNDER ANESTHESIA 1986 Dr. 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 Jones, [facility] Henson revision, fallopian tube ligation and pelvic CIERA 05/20/2020 Modified cutback anoplasty 1986 Dr. Donald Drew, [facility] Tethered cord repair 1999 [facility] VAGINAL SEPTUM RESECTION 2015 SOCIAL HISTORY: Social [...] CT Abdomen Pelvis with IV Contrast Order: [id number] Addendum Addendum by Provider, [facility] [place] on 05/24/2020 7:55 PM EST * * *Final Report* * * * * * SEE BOTTOM OF REPORT FOR ADDENDED TEXT * * * DATE OF EXAM: May 24 2020 6:45PM [facility] 0530 - CT ABD/PEL W IVCON [...] incision. Lower thorax: Minimal left basilar atelectasis. Safety Council Director (topogram) images: No additional findings. IMPRESSION: NEW [...] on 05/24/2020 7:28 PM via verbal communication. Social Work Supervisor: NATACHA Transcribe Date/Time: May 24 2020 7:52P [...] Gynecology 10/09/2024 11:30 AM [facility] Instructions* Patient Instructions* Jesse Edwards CPNP [...] c- section for management of your [place] [employer] Company: [employer] Educational Handouts/Orders Needed: none How to Reach CCPR General Questions: Please use [employer] or call [phone]. We will respond to [employer] messages and voicemails by the end of the next business day. Urgent Concerns: Weekdays, 8 a.m. to 4:30 p.m. (EST), call [phone]. After hours and weekends, call [phone] and press 0 when prompted to reach our on-call team. SCHEDULING BLOCK documented in this [facility] Health [id number] Note PROCEDURE: US KIDNEY REASON FOR EXAM: [...] No hydronephrosis. No abnormal pelvic free fluid. [id number] NotePROCEDURE: US KIDNEY REASON FOR EXAM: Hx: [...] MD on 10/09/2024 8:51 AM Post void residualY[facility]ion[facility] Telephone encounter Note* Telephone Encounter - Bernadette Morgan RN - 04/15/2024 2:29 PM EDT Images from the original note were not included. Fax received from [employer] stating they do not carry the Entra Ren Marathon Bags, but do have the [place] Marathon Bags. Also stated they do not have graduated cylinders. Will check with patient on this and fax back to [employer] at [phone] [facility]10-29-2024 Miscellaneous Notes* Telephone Encounter - Bernadette Morgan RN - 04/15/2024 2:29 PM EDT Images from the original note were not included. Fax received from [employer] stating they do not carry the Entra Ren Marathon Bags, but do have the [place] Marathon Bags. Also stated they do not have graduated cylinders. Will check with patient on this and fax back to [facility] at [phone] * Telephone Encounter - Lazara Brice RN [...] at 6.5 cm. A new 12-Citizen Of The [place], 6 cm in length mini Alex button [...] by 2 different methods. documented in this encounterNationOhio[facility]10-27-2024 Telephone encounter Note* Telephone Encounter - [...] at 6.5 cm. A new 12-Citizen Of [place], 6 cm in length mini Alex button [...] 6.5 cm length by 2 different methods. [facility]10-27-2024 History of Present illness Narrative* Lazara Brice RN - 04/13/2024 10:24 AM EDT Images from the original note were not included. New DME orders faxed to [facility]. Confirmation received. documented in this [facility]10-24-2024 Procedure note* Radiology Note - Tim Gonzalez - 04/10/2024 2:10 PM EDT Patient presents to IR with cecostomy in kent. Dr. Jo to remove that tube. [facility]10-24-2024 Miscellaneous Notes* Radiology Note - Tim Gonzalez - 04/10/2024 2:10 PM EDT Patient presents to IR with cecostomy in kent. Dr. Jo to remove that tube. documented in [facility]10[facility] History of Present illness Narrative* Andres Fitzgerald APN - 04/10/2024 10:00 AM EDT Images from the original note were not included. Informant: Pardeep Nelson is a 38 year old female from [place], [place] () with ARM (rectovaginal) s/p cutback [...] trouble again in September 2019. Lived in [facility] in [place] was directed to Dr. Beck in January of 2020 due to fertility issues with wanting to get by Dr. Sebastian in [employer]. Was having trouble getting catheter in was using a 12F. Was having to lay down to put the catheter in, did not have any is sues with leaking at that time. Revision 05/[address] Marlon Beck in conjunction with gynecology. [employer] couldn't get to left sided fallopian tube [...] visit: 12/01/2021 -PFPT: referral for closer to [facility] to help to decrease sit times -continue [...] I independently reviewed the following studies from [facility]. Xray abdomen supine CHART REVIEW In preparation for the care of this patient, I have independently reviewed the past medical recordsavailable to me at the time of the visit which included both [facility] recordsand outside facilities. I [...] is a 38 year old female from [place], [place] () with ARM (rectovaginal) s/p cutback [...] with questions or concerns documented in this [facility]NatHolzer [facility]'s [id number] Instructions* Patient Instructions* Deni Paul RN - [...] sooner with questions or concerns Homecare Company: [facility] Items Needed: Marathon Bags, tube Adaptor (depending on what IR places today), Syringes, split gauze Educational Handouts/Orders Needed: will need spare Mini Alex ordered once we have new size from IR today How to Reach CCPR General Questions: Please use [facility] [facility]'s [employer] or call [phone]. We will respond to [employer] messages and voicemails by the end of the next business day. Urgent Concerns: Weekdays, 8 a.m. to 4:30 p.m. (EST), call [phone]. After hours and weekends, call [phone] and press 0 when prompted to reach our on-call team. SCHEDULING BLOCK CCPR Follow-up/Scheduling Information INSURANCE In Network LTFU TRACK Is patient on LTFU Track:Yes LTFU Track for:BMP BMP Date: 11/2020 LEVEL: 1 REASON FOR VISIT Correction Follow-up for: BMP [facility] Annual TYPE OF VISIT Clinic Visit SCHEDULE NEXT APPOINTMENT When should patient be scheduled: 6 months DIAGNOSIS ARM COLORECTAL PROVIDER Gashaley COLORECTAL PRE-VISIT TESTING ABD X-ray CONSULTS Consults with: Urology, Other (see comment) IR for mini alex exchange Urology Provider: RODRI Urology Pre-Visit Testing: CHARLES Urology tests that need Sedation: None SURGERY Is surgery needed? No [facility] Telephone encounter Note* Telephone Encounter - Marixa Hernandez - 04/09/2024 8:10 AM EDT [place] insurance is active and INN, blocks updated [facility]10-23-2024 Miscellaneous Notes* Telephone Encounter - Marixa Hernandez - 04/09/2024 8:10 AM EDT Pt [place] insurance is active and INN, blocks updated documented in [facility]Gal[facility]10-[facility]-2024 Telephone encounter Note* Telephone Encounter - [...] She did upload her insurance cards in [employer], so will have those processed and let her know if there are any issues. [facility]10-22-2024 Miscellaneous Notes* Telephone Encounter - Bernadette [...] She did upload her insurance cards in [employer], so will have those processed and let [...] tube change on at 1:30. Will have GENERAL INTERNIST AND PHYSICIAN LEADER update order to reflect the correct way [...] the balloon was inflated. RN to update GENERAL INTERNIST AND PHYSICIAN LEADER on situation and call IR to see about getting scheduled. Will call patient back once there's an update. Last changed in October From: [employer] <[email or web address] Sent: Monday, April 08, 2024 9:55 AM To: CCPROnCall <[email or web address] Subject: Message from Unknown sender ([phone]) Patient calling in letting us know the balloon to her mini-alex popped and her tube came out. From: Latonya Rodarte <[email or web address]> Sent: Monday, April 08, 2024 10:10 AM To: [facility] <[email or web address]> Subject: Mariama villagomez tube broke Helmary, could I have someone call me back today? My tube just broke and fell out of my stomach. My name is Latonya Rodarte date of 1985 If I could have someone call me back [phone] documented in this [facility]NatAs[facility]10-22-[facility]24 Telephone encounter Note* Telephone Encounter [...] with: None SURGERY Is surgery needed? No [facility]10-22-2024 Telephone encounter Note* Telephone Encounter - Bernadette Morgan RN - 04/08/2024 11:44 AM EDT RN called Tete in IR and she is able to get patient in for a tube change on at 1:30. Will have GENERAL INTERNIST AND PHYSICIAN LEADER update order to reflect the correct way [...] to check with team and call patientback. [facility]'s [id number] Telephone encounter Note* Telephone Encounter - Bernadette [...] the balloon was inflated. RN to update GENERAL INTERNIST AND PHYSICIAN LEADER on situation and call IR to see about getting scheduled. Will call patient back once there's an update. Last changed in October From: [employer] Sent: Monday, April 08, 2024 9:55 AM To: CCPROnCall Subject: Message from Unknown sender ([phone]) Patient calling in letting us know the [...] I could have someone call me back [phone] [facility]'s [id number] NoteHNO ID: [id number] Author: Mackenzie Duran MD Service: ? Author [...] MD PGY 6 Reproductive Endocrinology and Infertility FellowOhiohealth O[facility]08-23-2023 History of Present illness Narrative* Mackenzie [...] Endocrinology and Infertility Fellow documented in this encounterTrihealth08-07-2023 NoteHNO ID: [id number] Author: Freda Gerard RN Service: ? Author [...] Freda Gerard RN January 22, 2023 1:42 [facility] History of Present illness Narrative* Freda [...] 22, 2023 1:42 PM documented in this encounterTrihealth07-31-2023 NoteHNO ID: [id number] Author: Freda Gerard RN Service: ? Author Type: ? Type: Progress Notes Filed: 01/15/2023 4:34 PM Note Text: Called patient with plan, take letrozole the next 4 days and return to clinic on 01/22. Patient states understanding, no further questions at this time. Freda Gerard RNOhiohealth O'Bleness Hospital07-31-2023 History of Present illness Narrative* Freda [...] nursing. Aydee More RN documented in this encounterTrihealth07-31-2023 NoteHNO ID: [id number] Author: Aydee More RN Service: ? Author [...] stay to meet with nursing. Aydee More RNOhiohealth O'Bleness Hospital07-28-2023 Miscellaneous Notes* Telephone Encounter - Freda [...] speaking with nurse freda documented in this encounterTrihealth06-29-2023 Miscellaneous Notes* Telephone Encounter - rFeda Gerard RN - 12/14/2022 2:44 PM EDT Called patient to advise her we have sent letrozole to the pharmacy she requested. Patient states understanding. Freda Gerard RN December 14, 2022 2:45 PM * Telephone Encounter - Ramila Dias - 12/14/2022 12:58 PM EDT Pt would like her prescription sent to the right [facility] in [place] ,speaking with Nurse Freda documented in this encounterTrihealth06-27-2023 Miscellaneous Notes* Addendum Note - Adri Baires [...] , please follow up documented in this encounterTrihealth06-08-2023 NoteHNO ID: [id number] Author: Freda Gerard RN Service: ? Author [...] Gerard RN November 23, 2022 3:11 [facility]06-08-2023 History of Present illness Narrative* Freda [...] nursing. Aydee More RN documented in this encounterTrihealth06-08-2023 NoteHNO ID: [id number] Author: Aydee More RN Service: ? Author [...] stay to meet with nursing. Aydee More RNOhiohealth O'Bleness Hospital06-07-2023 NoteHNO ID: [id number] Author: Freda Gerard RN Service: ? Author [...] Gerard RN November 22, 2022 2:01 [facility]06-07-2023 History of Present illness Narrative* Freda [...] 22, 2022 2:01 PM documented in this encounterTrihealth06-06-2023 Miscellaneous Notes* Telephone Encounter - Freda Gerard RN - 11/21/2022 3:22 PM EDT Patient has appointment scheduled tomorrow at 7:45. Freda Gerard RN November 21, 2022 3:23 PM * Telephone Encounter - Felicia Ricketts Pss - 11/21/2022 11:01 AM EDT Patient called did not see appt for tomorrow, scheduled monitoring appt for her. documented in this encounterTrihealth06-01-2023 History of Present illness Narrative* Freda Gerard RN - 11/16/2022 2:16 PM EDT Called patient with plan per flowsheet, start letrozole, start FSH day 5, return to clinic 11/22. Patient states understanding, no further questions at this time. Detailed MyChart message sent, requestsent for appointment 11/22 at 0700 Freda Gerard RN November 16, 2022 2:21 PM documented in this encounterTrihealth05-31-2023 Miscellaneous Notes* Addendum Note - Wil Luke MD - 11/15/2022 3:22 PM EDTAddended by: WIL LUKE on: 11/15/2022 03:22 PM Modules accepted: Orders documented in this encounterTrihealth05-31-2023 History of Present illness Narrative* Freda Gerard [...] 15, 2022 3:50 PM documented in this encounterTrihealth05-17-2023 Miscellaneous Notes* Telephone Encounter - Freda Gerard [...] speaking with nurse freda documented in this encounterTrihealth05-02-2023 Miscellaneous Notes* Telephone Encounter - Freda Gerard RN - 10/17/2022 2:32 PM EDT Returned phone call. Patient states her [facility] pharmacy does not have Clomid and is [...] are on back order documented in this encounterTrihealth03-23-2023 History of Present illness Narrative* Freda Gerard [...] nursing. Aydee More RN documented in this encounterTrihealth03-20-2023 History of Present illness Narrative* Freda Gerard [...] 04, 2022 2:24 PM documented in this encounterTrihealth03-14-2023 History of Present illness Narrative* Freda Gerard [...] 29, 2022 7:57 AM documented in this encounterTrihealth03-13-2023 Miscellaneous Notes* Telephone Encounter - Freda Gerard RN - 08/28/2022 4:47 PM EDT Returned phone call. Period started today, she will come in to baseline tomorrow at 0715. She called [facility] pharmacy today, medication will be delivered tomorrow or Sunday. Request sent for appointment tomorrow. Freda Gerard RN August 28, 2022 4:49 PM * Telephone Encounter - Felicia Ricketts Pss - 08/28/2022 10:07 AM EDT Patient states cycle should start tomorrow and she has not heard from pharmacy, please call patient. documented in this encounterTrihealth03-13-2023 Miscellaneous Notes* Telephone Encounter - Freda Gerard [...] Speaking with Nurse Freda documented in this encounterTrihealth03-08-2023 Miscellaneous Notes* Telephone Encounter - Ginny Jackson [...] with full doses. Will order medications to [facility] pharmacy, sent chart to financial for clearance. She will be a natural start, will schedule once patient pays. Freda Gerard RN August 23, 2022 2:42 PM * Telephone Encounter - Kasia Lund Pss - 08/22/2022 3:51 PM EST Pt wants to know if she can order her injections documented in this encounterTrihealth03-02-2023 History of Present illness Narrative* Khang Mercado - 08/17/2022 10:02 AM EST IVF freeze all cycle. No embryo was frozen. Khang Mercado August 17, 2022 10:02 AM documented in this encounterTrihealth03-02-2023 Miscellaneous Notes* Telephone Encounter - Khang Mercado - 08/17/2022 8:43 AM EST Patient called by lab to give update on embryo. Let patient know that her one embryo has stop developing. Nothing was frozen from this cycle. Khang Mercado August 17, 2022 8:43 AM documented in this encounterTrihealth03-01-2023 Miscellaneous Notes* Telephone Encounter - Khang Mercado [...] 15, 2022 8:44 AM documented in this encounterTrihealth02-24-2023 History of Present illness Narrative* MAXIMO Smyth Tech - 08/11/2022 12:33 PM EST Retrieval procedure performed. Detailed notes can be found in the paper chart in the [facility]- AUTOMOTIVE WORKER FOREMAN Office. Negrita Espinosa InfluxDB Tech documented in this encounterTrihealth02-24-2023 Note* [facility] ULTRASOUND GUIDED PROCEDURE (08/11/2022 4:44 AM EST) Anatomical Region Laterality Modality Other 08/11/2022 4:44 AM EST Narrative 08/11/2022 12:22 PM EST Indication Retrieval Impression Follicles noted Recommendations Continue with retrieval History General History Other: known didelphic uterus Method Transvaginal ultrasound examination Performed By: Read By: Wil Luke M.D. Mackenzie Duran MD [facility]02-22-2023 History of Present illness Narrative* Freda [...] 09, 2022 7:52 AM documented in this encounterTrihealth02-21-2023 History of Present illness Narrative* Essence Adkins [...] IVF cycle per physician, see flowsheet fordetails. Freeze Taghart message sent. Instructions given. Patient denies any questions or concerns. Message sent to scheduling pool for next appt. Essence Adkins RN August 08, 2022 1:21 PM documented in this encounterTrihealth02-20-2023 Miscellaneous Notes* Addendum Note - Ysabel Scott MD - 08/07/2022 3:36 PM ESTAddended by: YSABEL SCOTT on: 08/07/2022 03:36 PM Modules accepted: Orders * Addendum Note - Freda Gerard RN - 08/07/2022 1:55 PM ESTAddended by: FREDA GERARD RN on: 08/07/2022 01:55 PM Modules accepted: Orders documented in this encounterTrihealth02-20-2023 History of Present illness Narrative* Freda Gerard [...] 07, 2022 1:49 PM documented in this encounterTrihealth02-20-2023 History of Present illness Narrative* Aiyana Harman APRN.CNP - 08/07/2022 7:28 AM EST orders filed for labs today. Aiyana Harman APRN.CNP August 07, 2022 7:30 AM documented in this encounterTrihealth02-16-2023 Miscellaneous Notes* Telephone Encounter - Freda Gerard [...] speaking with nurse cordero documented in this encounterTrihealth02-16-2023 History of Present illness Narrative* Aydee More [...] nursing. Aydee More RN documented in this encounterTrihealth02-15-2023 History of Present illness Narrative* Freda Gerard [...] 02, 2022 1:57 PM documented in this encounterTrihealth02-07-2023 History of Present illness Narrative* Freda Gerard [...] 25, 2022 1:26 PM documented in this encounterTrihealth02-06-2023 Miscellaneous Notes* Telephone Encounter - Freda Gerard [...] Speaking with Nurse Freda documented in this encounterTrihealth01-19-2023 History of Present illness Narrative* Freda Gerard [...] nursing. Aydee More RN documented in this encounterTrihealth12-28-2022 Miscellaneous Notes* Telephone Encounter - Freda Gerard [...] 14, 2022 2:38 PM documented in this encounterTrihealth12-28-2022 Miscellaneous Notes* Telephone Encounter - Freda Gerard RN - 06/14/2022 2:00 PM EST Returned phone call, left voicemail message for patient to call back at her convenience. Freda Gerard RN June 14, 2022 2:01 PM documented in this encounterTrihealth12-19-2022 Consult note* Soren Sebastian MD - 06/05/2022 1:11 PM EST VIRTUAL VISIT PROGRESS NOTE This is a virtual visit using [employer] video visit. It required patient-provider interaction for [...] after surgery Discussed to outcome of our EMPLOYMENT SERVICE SPECIALIST/VERENICE portion of the surgery: 1 tube excised. [...] after surgery Discussed to outcome of our EMPLOYMENT SERVICE SPECIALIST/VERENICE portion of the surgery: 1 tube excised. [...] after surgery *Discussed to outcome of our EMPLOYMENT SERVICE SPECIALIST/VERENICE portion of the surgery: 1 tube excised. 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 [...] after surgery Discussed to outcome of our EMPLOYMENT SERVICE SPECIALIST/VERENICE portion of the surgery: 1 tube excised. [...] after surgery *Discussed to outcome of our EMPLOYMENT SERVICE SPECIALIST/VERENICE portion of the surgery: 1 tube excised. [...] Contreras: Discuss medical insurance benefits and likely [id number] costs of IVF. IVF nurse coordinator: Schedule [...] Contreras: Discuss medical insurance benefits and likely [id number] costs of IVF. IVF nurse coordinator: Schedule [...] Notations from previous visit: Records release from [facility] Likely laparoscopy bilateral salpingectomy prior to IVF I spent a total of 28 minutes on the date of the service which included preparing to see the patient, [id number] patient care, completing clinical documentation, obtaining and/or reviewing separately obtained history, counseling and educating the patient/family/caregiver, ordering medications, darcy ts, or procedures, communicating with other HCPs (not separately reported), independently interpreting results (not separately reported), and communicating results to the patient/family/caregiver. Soren Sebastian MD June 05, 2022 1:12 PM documented in this encounterTrihealth11-21-2022 Miscellaneous Notes* Telephone Encounter - Freda Gerard [...] her IVF cycle medications documented in this encounterTrihealth11-15-2022 Miscellaneous Notes* Telephone Encounter - Freda Gerard [...] bleeding, still having bleeding. documented in this encounterTrihealth11-14-2022 History of Present illness Narrative* Freda Gerard [...] 01, 2022 8:06 AM documented in this encounterTrihealth11-07-2022 Instructions* Patient Instructions* Freda Gerard RN - 04/24/2022 8:37 AM EST documented in this encounterTrihealth11-07-2022 History of Present illness Narrative* Freda Gerard [...] 24, 2022 1:59 PM documented in this [facility]11-04-2022 Miscellaneous Notes* Telephone Encounter - Kaila Smith RN - 04/21/2022 4:22 PM EDT Called pt by listed phone number. Pt CD1 today. Scheduled for natural baseline appointment for Sunday04/24/22 at 0715. Kaila Smith RN April 21, 2022 4:23 PM * Telephone Encounter - Felicia Ricketts Pss - 04/21/2022 2:34 PM EDT Patient is doing a natural cycle. documented in this encounterTrihealth10-25-2022 Miscellaneous Notes* Telephone Encounter - Freda Gerard [...] call to follow up documented in this [facility]10-24-2022 Miscellaneous Notes* Telephone Encounter - Freda Gerard RN - 04/10/2022 10:54 AM EDT Returned phone call. Left voicemail to call back. Freda Gerard RN April 10, 2022 10:55 AM * Telephone Encounter - Kasia Lund Pss - 04/10/2022 9:19 AM EDT Freda villa has ques on her meds documented in this encounterTrihealth09-27-2022 Miscellaneous Notes* Telephone Encounter - Freda Gerard RN - 03/14/2022 1:43 PM EDT Called patient, advised her to take her estrace now, and the other 2 at bedtime. Patient states understanding. Freda Gerard RN March 14, 2022 1:44 PM * Telephone Encounter - Felicia Ricketts [facility] - 03/14/2022 12:48 PM EDT Should she take all of them tonight, needs guidance. documented in this encounterTrihealth09-15-2022 Procedure note* Ysabel Scott MD - 03/02/2022 4:19 PM EDT [facility]I VERENICE TRANSFER PROCEDURE NOTE Date: 03/02/2022 Primary Proceduralist: Soren Sebastian MD Lead Atg Developer(s): Ysabel Scott MD Informed Consent: Consents and Labels Consent Signed: Informed Consent obtained and on the chart Labels Verified With Patient: Yes Indications: Latonya Rodarte, is a 36 year old female here today for Embryo Transfer. [place] Protocol: UNIVERSAL PROTOCOL / SAFETY CHECKLIST Procedure [...] 2022 TIME: 4:19 PM documented in this encounterTrihealth09-15-2022 History of Present illness Narrative* Ruth Ann Ernst - 03/02/2022 2:01 PM EDT Embryo Transfer procedure performed. Detailed notes can be found in the paper chart in the [facility] - AUTOMOTIVE WORKER FOREMAN Office. Ruth Ann Ernst documented in this encounterTrihealth09-15-2022 Instructions* Patient Instructions* Lyn Mckay RN - 03/02/2022 1:57 PM EDT POST EMBRYO TRANSFER INSTRUCTIONS You will need to have your blood drawn for Quantitative HCG on 03/16/22 at [place]. You can expectto be called the afternoon of your blood draw with your test results. If for any reason that date or location is changed, please call [phone] to inform us. Continue your current medications [...] If you have any questions, please call [phone]. documented in this encounterTrihealth09-09-2022 History of Present illness Narrative* Anahy Velarde MD - 02/24/2022 1:24 PM EDT Called patient with plan for transfer. Went over medications and timing. Detailed Invenrat message sent. Patient has no questions. Freda [...] nursing. Aydee More RN documented in this encounterTrihealth09-07-2022 History of Present illness Narrative* Freda Gerard [...] 22, 2022 7:43 AM documented in this encounterTrihealth08-29-2022 Miscellaneous Notes* Telephone Encounter - Freda Gerard RN - 02/13/2022 4:44 PM EDT Called patient, she started estrace on 02/10. Lining check scheduled for 02/22. Thaw plan turned in. Request sent for appointment on 02/22. Freda Gerard RN * Telephone Encounter - Felicia Ricketts Pss - 02/10/2022 3:35 PM EDT Calling regarding frozen embryo transfer. documented in this encounterTrihealth08-29-2022 Miscellaneous Notes* Telephone Encounter - Paris Villarreal - 02/13/2022 2:27 PM EDT Pt reporting cycle start 02/10 for FET documented in this encounterTrihealth08-11-2022 History of Present illness Narrative* Freda Gerard [...] 26, 2022 2:14 PM documented in this encounterTrihealth08-11-2022 Miscellaneous Notes* Telephone Encounter - Paris Villarreal - 01/26/2022 11:09 AM EDT Pt dropped off FET thaw plan this morning and just wants to double check that the nurses got it documented in this encounterTrihealth07-11-2022 Miscellaneous Notes* Telephone Encounter - Jen Cruz [...] usually talks to Freda documented in this encounterTrihealth07-06-2022 Procedure note* Wil Luke MD - 12/21/2021 [...] team. Wil Luke MD documented in this encounterTrihealth07-06-2022 History of Present illness Narrative* Birgit Hale [...] for FET Test: Negative documented in this encounterTrihealth07-05-2022 Miscellaneous Notes* Telephone Encounter - Freda Gerard [...] follow up with patient. documented in this encounterTrihealth06-15-2022 Miscellaneous Notes* Telephone Encounter - rFeda Gerard RN - 11/30/2021 3:55 PM EDT Returned phone call, left voicemail message she needs hysteroscopy next. Order placed, advised her to call with period to schedule. Freda Gerard RN November 30, 2021 3:56 PM * Telephone Encounter - Kasia Lund Pss - 11/30/2021 2:27 PM EDT Pt had ret in September wants to discuss setting up fet documented in this encounterTrihealth05-01-2022 History of Present illness Narrative* Geno Fatima - 10/16/2021 9:09 AM EDT IVF freeze all cycle. Geno Fatima October 16, 2021 9:09 AM documented in this encounterTrihealth04-25-2022 History of Present illness Narrative* Sasha Stoddard - 10/10/2021 12:39 PM EDT Retrieval procedure performed. Detailed notes can be found in the paper chart in the [facility]- AUTOMOTIVE WORKER FOREMAN Office. Sasha Stoddard documented in this encounterTrihealth04-24-2022 History of Present illness Narrative* Katrina Mcclain RN - 10/09/2021 11:37 AM EDT Patient had post trigger labs done today. Will be reviewed by EGR. Plan for retrieval tomorrow. Katrina Mcclain RN October 09, 2021 11:43 AM documented in this [facility]04-23-2022 History of Present illness Narrative* Katrina Mcclain [...] 08, 2021 1:54 PM documented in this encounterTrihealth04-22-2022 Miscellaneous Notes* Telephone Encounter - Freda Gerard [...] uses [facility] for medication. documented in this encounterTrihealth04-22-2022 History of Present illness Narrative* Aiyana Harman APRN.CNP - 10/07/2021 7:31 AM EDT orders filed for e2 for 10-08-21. Aiyana Harman APRN.CNP October 07, 2021 7:32 AM documented in this encounterTrihealth04-21-2022 History of Present illness Narrative* Freda Gerard [...] 06, 2021 1:50 PM documented in this encounterTrihealth04-21-2022 History of Present illness Narrative* Aiyana Harman APRN.CNP - 10/06/2021 6:54 AM EDT orders filed for Prog and US exam. Aiyana Harman APRN.CNP October 06, 2021 6:56 AM documented in this encounterTrihealth04-20-2022 History of Present illness Narrative* Freda Gerard [...] 05, 2021 1:37 PM documented in this encounterTrihealth04-17-2022 History of Present illness Narrative* Aydee More [...] 02, 2021 11:37 AM documented in this encounterTrihealth04-13-2022 History of Present illness Narrative* Freda Gerard [...] and return to clinic on Sunday. Sent [employer] message, requested appointment for Sunday around 7:15 Freda Gerard RN September 28, 2021 1:57 PM documented in this encounterTrihealth04-11-2022 History of Present illness Narrative* Freda Gerard [...] 26, 2021 1:31 PM documented in this encounterTrihealth04-08-2022 Miscellaneous Notes* Telephone Encounter - Megan Cabrera - 09/23/2021 8:12 AM EDT Patient paid me for $750 for ultrasounds and $150 for nurse visit * Telephone Encounter - Felicia Ricketts Pss - 09/22/2021 10:28 AM EDT Please follow up with patient. documented in this encounterTrihealth04-07-2022 History of Present illness Narrative* Aiyana Harman APRN.CNP - 09/22/2021 7:03 AM EDT orders filed for ivf monitoring. Aiyana Harman APRN.CNP September 22, 2021 7:03 AM [facility]* Diagnosis Female infertility- Primary Female infertility of unspecified origin documented [facility] Diagnosis Female infertility- Primary Female infertility of unspecified origin [facility] Diagnosis Female infertility Female infertility of unspecified origin [facility] Diagnosis Female infertility- Primary Female infertility of unspecified origin [facility] Diagnosis Female infertility Female infertility of unspecified origin documented in this encounter [facility]* Diagnosis Female infertility- Primary Female infertility of unspecified origin documented in this encounter [facility]* Diagnosis Female infertility Female infertility of unspecified origin documented in this [facility]* Diagnosis Encounter for fertility testing- Primary Fertility testing Female infertility Female infertility of unspecified origin documented in this encounter [facility]* Diagnosis Encounter for fertility testing Fertility testing Female infertility Female infertility of unspecified origin documented in this encounter [facility]* Diagnosis Female infertility- Primary Female infertility of unspecified origin documented [facility] this [facility]* Diagnosis Encounter for fertility testing- Primary Fertility testing documented in this encounter [facility]* Diagnosis Fertility testing- Primary Pre-procedural laboratory examination documented in this encounter [facility] note* Diagnosis Primary female infertility- Primary Female infertility of unspecified origin documented in this encounter [facility]* Diagnosis Female infertility- Primary Female infertility of unspecified origin [facility] Diagnosis Primary female infertility Female infertility of unspecified origin [facility]* Diagnosis Female infertility- Primary Female infertility of unspecified origin [facility]* Diagnosis Primary female infertility- Primary Female infertility of unspecified origin documented in this encounter [facility] note* Diagnosis examination or test, unconfirmed- Primary Infertility, female Female infertility of unspecified origin [facility]* Diagnosis Encounter for fertility testing- Primary Fertility testing documented in this encounter [facility] note* Diagnosis Female infertility- Primary Female infertility of unspecified origin [facility]* Diagnosis Female infertility- Primary Female infertility of unspecified origin Encounter for fertility testing Fertility testing documented in this encounter [facility] note* Diagnosis Female infertility- Primary Female infertility of unspecified origin Encounter for fertility testing Fertility testing documented [facility] [facility] note* Diagnosis 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 Other ovarian failure Encounter for fertility planning Other specified procreative management Female pelvic peritoneal adhesions Pelvic peritoneal adhesions, female (postoperative) (postinfection) documented in this encounter [facility] note* Diagnosis Female infertility- Primary Female infertility of unspecified origin [facility] Diagnosis Encounter for fertility testing Fertility testing Female infertility Female infertility of unspecified origin documented in this encounter [facility] note* Diagnosis Female infertility Female infertility of unspecified origin documented [facility]* Diagnosis Female infertility- Primary Female infertility of unspecified origin documented [facility]* Diagnosis Female infertility Female infertility of unspecified origin documented [facility]* Diagnosis Female infertility Female infertility of unspecified origin documented in this encounter [facility] note* Diagnosis Female infertility- Primary Female infertility of unspecified origin documented in this encounter [facility] note* Diagnosis Female infertility Female infertility of unspecified origin [facility]* Diagnosis Female infertility Female infertility of unspecified origin [facility] Diagnosis Female infertility Female infertility of unspecified origin [facility]* Diagnosis Female infertility- Primary Female infertility of unspecified origin [facility]* Diagnosis Female infertility- Primary Female infertility of unspecified origin documented [facility]* Diagnosis Female infertility Female infertility of unspecified origin documented [facility]* Diagnosis Female infertility- Primary Female infertility of unspecified origin Encounter for fertility testing Fertility testing documented [facility]* Diagnosis Female infertility- Primary Female infertility of unspecified origin [facility]* Diagnosis Female infertility- Primary Female infertility of unspecified origin Encounter for fertility testing Fertility testing documented in this encounter [facility] note* Diagnosis Encounter for fertility testing Fertility testing documented in this encounter [facility] note* Diagnosis Treatment plan provided- Primary documented in this encounter [facility] note* Diagnosis Encounter for fertility testing Fertility testing documented in this encounter [facility] note* Diagnosis Encounter for fertility testing Fertility testing documented in this encounter [facility] note* Diagnosis 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 documented in this encounter [facility] Diagnosis 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 documented in this encounter [facility]* Diagnosis 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 Other constipation History of antegrade continence enema procedure documented in this encounter [facility]* Diagnosis 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 Other constipation History of antegrade continence enema procedure documented in this encounter [facility]* Diagnosis 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 documented in this encounter [facility] Diagnosis 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 documented in this encounter [facility]* Diagnosis 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 Incomplete defecation Incomplete emptying of bladder Incomplete bladder emptying documented in this encounter [facility]* Diagnosis 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 Other constipation History of antegrade continence enema procedure documented in this encounter [facility]* Diagnosis Encounter for anatomic survey- Primary Advanced maternal age, 1st , first trimester Encounter for screening for risk of pre-term labor 18 weeks gestation of state, incidental AMA (advanced maternal age) multigravida 35+, second trimester Encounter for ultrasound to assess interval growth of fetus Encounter for follow-up ultrasound of anatomy [facility] Diagnosis 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 Recurrent UTI Urinary tract infection, site not specified 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 [facility] Diagnosis Encounter for follow-up ultrasound of anatomy- Primary Encounter for ultrasound to assess interval growth of fetus 22 weeks gestation of state, incidental AMA (advanced maternal age) multigravida 35+, second trimester [facility] Diagnosis resulting from in vitro fertilization, antepartum- Primary [facility] Diagnosis cardiac anomaly complicating , antepartum, single gestation- Primary resulting from in vitro fertilization, antepartum 24 weeks gestation of state, incidental documented in this encounter [facility] note* Diagnosis Need for Tdap vaccination- Primary Need for prophylactic vaccination with combined mfwlfpfmyf-vdldopj-qchajusmy (DTP) vaccine Multigravida of advanced maternal age in second trimester Encounter for supervision of normal first in second trimester Supervision of normal first 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 Lane Henderson MD Age/Sex: 39/F Location: [facility] Status: Signed Intake Vital Signs 10/24/24 11:42 10/30/24 09:05 10/30/24 09:10 Height 5 ft 4 in 5 ft 4 in 5 ft 4 in Weight: 165 lb 4 oz BMI 28.3 BP 116/70 Intake Visit Reasons: 10W 1D [employer] CK per JV Migration Agent Required: No Is patient in pain?: No Allergies ampicillin Allergy (Verified 10/30/24 09:05) Hives Medications ?Medication ?Instructions ?Recorded ?Confirmed ?Type Lactobacillus 25 billion cap PO 10/14/24 10/30/24 His tory cell-Bifido 25 billion heyw-FQM-xbpqw capsule aspirin 81 mg tablet,delayed 81 mg [...] 3-4 times per week duration: 15-30 minutes/day sotero/hoahaoism: None seatbelt use: always do you feel safe at home: Yes 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 History 2 Elective abortions Hx Para 0 [...] : Status: Acute Comment: , WES 05/27/25, Johnny([facility] Web Marketing Assistant) (6) History of miscarriage, currently : Status: [...] Cosigner Signature: Date (if applicable) CC: ~ [facility] Work Phone: Progress note Author Kaila Henderson [facility] Note Date/Time February 19, 2025 9:53am [facility] [address] [place] [address], [address] [place] [address] OFFICE VISIT Date of Service: 02/19/25 MR#: [id number] Acct: [id number] Name: LATONYA RODARTE Rep #: [id number] : 1985 Provider: Dr. Lane Henderson MD Age/Sex: 39/F Location: [facility] Status: Signed Intake Vital Signs 11/18/24 14:11 01/20/25 15:41 02/19/25 09:08 Height 5 ft 4 in 5 ft 4 in 5 ft 4 in Weight: 177 lb 3 oz BMI 30.4 BP 135/77 H Intake Visit Reasons: 26 WK OB *DOC ONLY Migration Agent Required: No Is patient in pain?: No Allergies ampicillin Allergy (Verified 02/19/25 09:10) Hives Medications ?Medication ?Instructions ?Recorded ?Confirmed ?Type Lactobacillus 25 billion cap PO 10/14/24 02/19/25 His tory cell-Bifido 25 billion kpjg-BMO-ufnex capsule aspirin 81 mg tablet,delayed 81 mg [...] 3-4 times per week duration: 15-30 minutes/day sotero/hoahaoism: None seatbelt use: always do you feel safe at home: Yes 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 History 2 Elective abortions Hx Para 0 [...] DOC ONLY PRR , WES 05/27/25, boy Johnny([facility] Web Marketing Assistant) (7) History of miscarriage, currently : Status: [...] Cosign Signature: Date (if applicable) CC: ~ [facility] [employer] Work Phone: Reason for referral (narrative)* Diagnostic Procedure Only (Routine) - Pending Review Specialty Diagnoses / Procedures Referred By Contac t Referred To Contact [facility] Diagnoses Female infertility Procedures FOLLICULAR US [facility] US PELVIC NONOBSTETRIC IMAGE MUKESH LIMITED/F/U Aiyana Harman APRN.AUTOMATION MACHINE OPERATOR [address] [place] [address] [place] [address] Referral ID Status Reason Start Date Expiration Date Visits Requested Visits Authorized [id number] Pending Review Auto-Generat ed Referral 09/22/2021 09/22/2022 6 6 [facility] Diagnostic Procedure Only (Routine) - Pending Review Specialty Diagnoses / Procedures Referred By Contac t Referred To Contact [facility] Diagnoses Female infertility Procedures FOLLICULAR US I US PELVIC NONOBSTETRIC IMAGE CELESTETN LIMITED/F/U Aiyana Harman APRN.AUTOMATION MACHINE OPERATOR [address] [place] [address] [address] Referral ID Status Reason Start Date Expiration Date Visits Requested Visits Authorized [id number] Pending Review Auto-Generat ed Referral 10/06/2021 10/06/2022 6 6 [facility] for referral (narrative)* Diagnostic Procedure Only (Routine) - Pending Review Specialty Diagnoses / Procedures Referred By Contac t Referred To Contact [facility] Diagnoses Primary female infertility Procedures FOLLICULAR US I US PELVIC NONOBSTETRIC IMAGE DCMTN LIMITED/F/U Stuart Guerrero APRN.AUTOMATION MACHINE OPERATOR [address] [place] [address] [address] Referral ID Status Reason Start Date Expiration Date Visits Requested Visits Authorized [id number] Pending Review Auto-Generat ed Referral 12/26/2021 12/26/2022 1 1 [facility] for referral (narrative)* Diagnostic Procedure Only (Routine) - Pending Review Specialty Diagnoses / Procedures Referred By Contac t Referred To Contact [facility] Diagnoses Female infertility Procedures FOLLICULAR US I US PELVIC NONOBSTETRIC IMAGE DCMTN LIMITED/F/U Aiyana Harman APRN.AUTOMATION MACHINE OPERATOR [address] [place] [address] [address] Referral ID Status Reason Start Date Expiration Date Visits Requested Visits Authorized [id number] Pending Review Auto-Generat ed Referral 02/22/2022 02/22/2023 6 1 [facility] for referral (narrative)* Diagnostic Procedure Only (Routine) - Pending Review Specialty Diagnoses / Procedures Referred By Contac t Referred To Contact [facility] Diagnoses Encounter for fertility testing Procedures FOLLICULAR US WHI US PELVIC NONOBSTETRIC IMAGE CELESTETN LIMITED/F/U Stuart Guerrero APRN.AUTOMATION MACHINE OPERATOR [address] [place] [address] [facility] [address] [place] [address] Referral ID Status Reason Start Date Expiration Date Visits Requested Visits Authorized [id number] Pending Review Auto-Generat ed Referral 04/11/2023 6 1 [facility] for referral (narrative)* Diagnostic Procedure Only (Routine) - Authorized Specialty Diagnoses / Procedures Referred By Contac t Referred To Contact [facility] Diagnoses Female infertility Procedures FOLLICULAR US I US PELVIC NONOBSTETRIC IMAGE CELESTETBethany LIMITED/F/U Stuart Guerrero APRN.AUTOMATION MACHINE OPERATOR [address] [place] [address] [facility] [address] [place] [address] Referral ID Status Reason Start Date Expiration Date Visits Requested Visits Authorized [id number] Authorized Auto-Generat ed Referral 07/24/2022 07/24/2023 1 1 [facility] for referral (narrative)* Diagnostic Procedure Only (Routine) - Authorized Specialty Diagnoses / Procedures Referred By Contac t Referred To Contact [facility] Diagnoses Female infertility Procedures FOLLICULAR US I US PELVIC NONOBSTETRIC IMAGE DCMTN LIMITED/F/U Marina Boswell APRN.AUTOMATION MACHINE OPERATOR [address] [facility] [place] [address] [facility] [address] [place] [address] Referral ID Status Reason Start Date Expiration Date Visits Requested Visits Authorized [id number] Authorized Auto-Generat ed Referral 08/28/2022 08/28/2023 6 1 [facility] for referral (narrative)No reason for referral [facility] Work Phone: Reason for visit Narrative* Diagnostic Procedure Only (Routine) - Closed Specialty Diagnoses / Procedures Referred By Contac t Referred To Contact [facility] Diagnoses Female infertility Procedures FOLLICULAR US [facility] US PELVIC NONOBSTETRIC IMAGE DCMTN LIMITED/F/U Shelby Rojas PA-C [address] [place] [address] [address] Referral ID Status Reason Start Date Expiration Date V isits Requested Visits Authorized [id number] Closed Auto-Generate d Referral 07/05/2022 07/05/2023 6 6 [facility] for visit Narrative* Diagnostic Procedure Only (Routine) - Authorized Specialty Diagnoses / Procedures Referred By Contac t Referred To Contact [facility] Diagnoses Encounter for fertility testing Procedures FOLLICULAR US I US PELVIC [facility]OBSTETRIC [facility]/F/U Stuart Guerrero APRN.AUTOMATION MACHINE OPERATOR [address] [place] [address] [address] Referral ID Status Reason Start Date Expiration Date Visits Requested Visits Authorized [id number] Authorized Auto-Generat ed Referral 11/14/2022 06/17/2023 6 6 [facility] for visit Narrative* Radiology Services (Routine) - New Request Specialty Diagnoses / Procedures Referred By Valarie t Referred To Contact [facility] Interventional Diagnoses Anorectal malformation Other constipation History of antegrade continence enema procedure Procedures IR Cecostomy Exchange with Fluoro IR Consult Andres Fitzgerald APN [address] [place] [address] Phone: tel: fax: Referral ID Status Reason Start Date Expiration Date V isits Requested Visits Authorized [id number] New Request 04/10/2024 1 1 [facility] Services (Routine) - New Request Specialty Diagnoses / Procedures Referred By Contac t Referred To Contact [facility] Ultrasound Diagnoses Anorectal malformation Procedures US Kidney Jesse Edwards, IRENA [address] [place] [address] Phone: tel: fax: Referral ID Status Reason Start Date Expiration Date V isits Requested Visits Authorized [id number] New Request 04/09/2024 1 1 [facility] Summary Purpose Family History No Family History Records Found Relationship Condition Age at Onset Recorded Date/T rika grandfather Malignant neoplasm 55 father Diabetes mellitus Unknown uncle Multiple sclerosis Unknown mother Lymphedema Unknown grandfather Lymphedema Unknown Advance Directives No Advanced Directives Records FoundDocuments on File Type Date Recorded 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 Advance Directive(s) 05/24/2020 6:40 PM Advance Directive(s) 05/05/2020 11:58 AM Advance Directive(s) 03/25/2020 1:38 PM Documents on File Type Date Recorded 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 Advance Directive(s) 05/24/2020 6:40 PM Advance Directive(s) 05/05/2020 11:58 AM Advance Directive(s) 03/25/2020 1:38 PM Advance Directive Response Recorded Date/ Time Advance Directives No April 3:11pm Reason for Referral Specialty Diagnoses / Procedures Referred By Contac t Referred To Contact Marina Boswell APRN.AUTOMATION MACHINE OPERATOR [address] [facility] [place] [place] [address] Referral ID Status Reason Start Date Expiration Date V isits Requested Visits Authorized [id number] Authorized 08/28/2022 10/28/2022 1 1 Specialty Diagnoses / Procedures Referred By Contac t Referred To Contact [facility] Interventional Diagnoses Anorectal malformation Procedures IR Consult Chaitanya Akins APN [address] [place] [address] Referral ID Status Reason Start Date Expiration Date V isits Requested Visits Authorized [id number] New Request 04/08/2024 1 1 Specialty Diagnoses / Procedures Referred By Contac t Referred To Contact Diagnoses Anorectal malformation Procedures XR Abdomen - Supine Chaitanya Akins, [address] [address] Referral ID Status Reason Start Date Expiration Date V isits Requested Visits Authorized [id number] New Request 04/09/2024 1 1 Specialty Diagnoses / Procedures Referred By Contac t Referred To Contact [facility] Interventional Diagnoses Anorectal malformation Other constipation History of antegrade continence enema procedure Procedures IR Consult Andres Fitzgerald [address] [address] Referral ID Status Reason Start Date Expiration Date V isits Requested Visits Authorized [id number] New Request 04/10/2024 1 1 Specialty Diagnoses / Procedures Referred By Rajatac t Referred To Contact Diagnoses Anorectal malformation Other constipation History of antegrade continence enema procedure Procedures XR Abdomen - Supine Andres Fitzgerald GENERAL INTERNIST AND PHYSICIAN LEADER [address] [place] [address] Referral ID Status Reason Start Date Expiration Date V isits Requested Visits Authorized [id number] New Request 04/10/2024 1 1 Specialty Diagnoses / Procedures Referred By Contac t Referred To Contact [facility] Interventional Diagnoses Anorectal malformation Procedures IR Cecostomy Exchange with Fluoro IR Consult Chaitanya Akins, [facility] [address] [place] [address] Chief Complaint and Reason for Visit Chief [...] section and content) DATE CREATED AUTHOR 11/01/2019 [facility] DATE CREATED AUTHOR AUTHOR'S ORGANIZ ATION 12/03/2020 [facility] DATE CREATED AUTHOR AUTHOR'S ORGANIZ ATION 03/17/2021 [facility] DATE CREATED AUTHOR AUTHOR'S ORGANIZ ATION 06/09/2022 [facility] DATE CREATED AUTHOR AUTHOR'S ORGANIZ ATION 11/11/2023 [facility] DATE CREATED AUTHOR AUTHOR'S ORGANIZ ATION 11/14/2023 [facility] DATE CREATED AUTHOR AUTHOR'S ORGANIZ ATION 11/17/2023 [facility] DATE CREATED AUTHOR AUTHOR'S ORGANIZ ATION 10/11/[address] [facility] DATE CREATED AUTHOR AUTHOR'S ORGANIZ ATION 11/28/2024 [facility] DATE CREATED AUTHOR AUTHOR'S ORGANIZ ATION 02/13/[address] [facility] DATE CREATED AUTHOR AUTHOR'S ORGANIZ ATION 02/27/2025 [facility] DATE CREATED AUTHOR AUTHOR'S ORGANIZ ATION 03/04/2025 [facility] Source Comments (unrecognize d section and content) In the event this informatio n is protected by the Federal Confidentiality of Alcohol and Drug Abuse Patient Records regulations: The Federal rules restrict any use of the information to criminally investigate or prosecute any alcohol or drug abuse patient.TrihealthIn the event this information is protected by the Federal Confidentiality of Alcohol and Drug Abuse Patient Records regulations: The Federal rules restrict any use of the information to criminally investigate or prosecute any alcohol or drug abuse patient.TrihealthIn the event this information is protected by the Federal Confidentiality of Alcohol and Drug Abuse Patient Records regulations: The Federal rules restrict any use of the information to criminally investigate or prosecute any alcohol or drug abuse patient.TrihealthIn the event this information is protected by the Federal Confidentiality of Alcohol and Drug Abuse Patient Records regulations: The Federal rules restrict any use of the information to criminally investigate or prosecute any alcohol or drug abuse patient.TrihealthIn the event this information is protected by the Federal Confidentiality of Alcohol and Drug Abuse Patient Records regulations: The Federal rules restrict any use of the information to criminally investigate or prosecute any alcohol or drug abuse patient.TrihealthIn the event this information is protected by the Federal Confidentiality of Alcohol and Drug Abuse Patient Records regulations: The Federal rules restrict any use of the information to criminally investigate or prosecute any alcohol or drug abuse patient.TrihealthIn the event this information is protected by the Federal Confidentiality of Alcohol and Drug Abuse Patient Records regulations: The Federal rules restrict any use of the information to criminally investigate or prosecute any alcohol or drug abuse patient.TrihealthIn the event this information is protected by the Federal Confidentiality of Alcohol and Drug Abuse Patient Records regulations: The Federal rules restrict any use of the information to criminally investigate or prosecute any alcohol or drug abuse patient.TrihealthIn the event this information is protected by the Federal Confidentiality of Alcohol and Drug Abuse Patient Records regulations: The Federal rules restrict any use of the information to criminally investigate or prosecute any alcohol or drug abuse patient.TrihealthIn the event this information is protected by the Federal Confidentiality of Alcohol and Drug Abuse Patient Records regulations: The Federal rules restrict any use of the information to criminally investigate or prosecute any alcohol or drug abuse patient.TrihealthIn the event this information is protected by the Federal Confidentiality of Alcohol and Drug Abuse Patient Records regulations: The Federal rules restrict any use of the information to criminally investigate or prosecute any alcohol or drug abuse patient.TrihealthIn the event this information is protected by the Federal Confidentiality of Alcohol and Drug Abuse Patient Records regulations: The Federal rules restrict any use of the information to criminally investigate or prosecute any alcohol or drug abuse patient.TrihealthIn the event this information is protected by the Federal Confidentiality of Alcohol and Drug Abuse Patient Records regulations: The Federal rules restrict any use of the information to criminally investigate or prosecute any alcohol or drug abuse patient.TrihealthIn the event this information is protected by the Federal Confidentiality of Alcohol and Drug Abuse Patient Records regulations: The Federal rules restrict any use of the information to criminally investigate or prosecute any alcohol or drug abuse patient.TrihealthIn the event this information is protected by the Federal Confidentiality of Alcohol and Drug Abuse Patient Records regulations: The Federal rules restrict any use of the information to criminally investigate or prosecute any alcohol or drug abuse patient.TrihealthIn the event this information is protected by the Federal Confidentiality of Alcohol and Drug Abuse Patient Records regulations: The Federal rules restrict any use of the information to criminally investigate or prosecute any alcohol or drug abuse patient.TrihealthIn the event this information is protected by the Federal Confidentiality of Alcohol and Drug Abuse Patient Records regulations: The Federal rules restrict any use of the information to criminally investigate or prosecute any alcohol or drug abuse patient.TrihealthIn the event this information is protected by the Federal Confidentiality of Alcohol and Drug Abuse Patient Records regulations: The Federal rules restrict any use of the information to criminally investigate or prosecute any alcohol or drug abuse patient.TrihealthIn the event this information is protected by the Federal Confidentiality of Alcohol and Drug Abuse Patient Records regulations: The Federal rules restrict any use of the information to criminally investigate or prosecute any alcohol or drug abuse patient.TrihealthIn the event this information is protected by the Federal Confidentiality of Alcohol and Drug Abuse Patient Records regulations: The Federal rules restrict any use of the information to criminally investigate or prosecute any alcohol or drug abuse patient.TrihealthIn the event this information is protected by the Federal Confidentiality of Alcohol and Drug Abuse Patient Records regulations: The Federal rules restrict any use of the information to criminally investigate or prosecute any alcohol or drug abuse patient.TrihealthIn the event this information is protected by the Federal Confidentiality of Alcohol and Drug Abuse Patient Records regulations: The Federal rules restrict any use of the information to criminally investigate or prosecute any alcohol or drug abuse patient.TrihealthIn the event this information is protected by the Federal Confidentiality of Alcohol and Drug Abuse Patient Records regulations: The Federal rules restrict any use of the information to criminally investigate or prosecute any alcohol or drug abuse patient.TrihealthIn the event this information is protected by the Federal Confidentiality of Alcohol and Drug Abuse Patient Records regulations: The Federal rules restrict any use of the information to criminally investigate or prosecute any alcohol or drug abuse patient.TrihealthIn the event this information is protected by the Federal Confidentiality of Alcohol and Drug Abuse Patient Records regulations: The Federal rules restrict any use of the information to criminally investigate or prosecute any alcohol or drug abuse patient.TrihealthIn the event this information is protected by the Federal Confidentiality of Alcohol and Drug Abuse Patient Records regulations: The Federal rules restrict any use of the information to criminally investigate or prosecute any alcohol or drug abuse patient.TrihealthIn the event this information is protected by the Federal Confidentiality of Alcohol and Drug Abuse Patient Records regulations: The Federal rules restrict any use of the information to criminally investigate or prosecute any alcohol or drug abuse patient.TrihealthIn the event this information is protected by the Federal Confidentiality of Alcohol and Drug Abuse Patient Records regulations: The Federal rules restrict any use of the information to criminally investigate or prosecute any alcohol or drug abuse patient.TrihealthIn the event this information is protected by the Federal Confidentiality of Alcohol and Drug Abuse Patient Records regulations: The Federal rules restrict any use of the information to criminally investigate or prosecute any alcohol or drug abuse patient.TrihealthIn the event this information is protected by the Federal Confidentiality of Alcohol and Drug Abuse Patient Records regulations: The Federal rules restrict any use of the information to criminally investigate or prosecute any alcohol or drug abuse patient.TrihealthIn the event this information is protected by the Federal Confidentiality of Alcohol and Drug Abuse Patient Records regulations: The Federal rules restrict any use of the information to criminally investigate or prosecute any alcohol or drug abuse patient.TrihealthIn the event this information is protected by the Federal Confidentiality of Alcohol and Drug Abuse Patient Records regulations: The Federal rules restrict any use of the information to criminally investigate or prosecute any alcohol or drug abuse patient.TrihealthIn the event this information is protected by the Federal Confidentiality of Alcohol and Drug Abuse Patient Records regulations: The Federal rules restrict any use of the information to criminally investigate or prosecute any alcohol or drug abuse patient.TrihealthIn the event this information is protected by the Federal Confidentiality of Alcohol and Drug Abuse Patient Records regulations: The Federal rules restrict any use of the information to criminally investigate or prosecute any alcohol or drug abuse patient.TrihealthIn the event this information is protected by the Federal Confidentiality of Alcohol and Drug Abuse Patient Records regulations: The Federal rules restrict any use of the information to criminally investigate or prosecute any alcohol or drug abuse patient.TrihealthIn the event this information is protected by the Federal Confidentiality of Alcohol and Drug Abuse Patient Records regulations: The Federal rules restrict any use of the information to criminally investigate or prosecute any alcohol or drug abuse patient.TrihealthIn the event this information is protected by the Federal Confidentiality of Alcohol and Drug Abuse Patient Records regulations: The Federal rules restrict any use of the information to criminally investigate or prosecute any alcohol or drug abuse patient.TrihealthIn the event this information is protected by the Federal Confidentiality of Alcohol and Drug Abuse Patient Records regulations: The Federal rules restrict any use of the information to criminally investigate or prosecute any alcohol or drug abuse patient.TrihealthIn the event this information is protected by the Federal Confidentiality of Alcohol and Drug Abuse Patient Records regulations: The Federal rules restrict any use of the information to criminally investigate or prosecute any alcohol or drug abuse patient.TrihealthIn the event this information is protected by the Federal Confidentiality of Alcohol and Drug Abuse Patient Records regulations: The Federal rules restrict any use of the information to criminally investigate or prosecute any alcohol or drug abuse patient.TrihealthIn the event this information is protected by the Federal Confidentiality of Alcohol and Drug Abuse Patient Records regulations: The Federal rules restrict any use of the information to criminally investigate or prosecute any alcohol or drug abuse patient.TrihealthIn the event this information is protected by the Federal Confidentiality of Alcohol and Drug Abuse Patient Records regulations: The Federal rules restrict any use of the information to criminally investigate or prosecute any alcohol or drug abuse patient.TrihealthIn the event this information is protected by the Federal Confidentiality of Alcohol and Drug Abuse Patient Records regulations: The Federal rules restrict any use of the information to criminally investigate or prosecute any alcohol or drug abuse patient.TrihealthIn the event this information is protected by the Federal Confidentiality of Alcohol and Drug Abuse Patient Records regulations: The Federal rules restrict any use of the information to criminally investigate or prosecute any alcohol or drug abuse patient.TrihealthIn the event this information is protected by the Federal Confidentiality of Alcohol and Drug Abuse Patient Records regulations: The Federal rules restrict any use of the information to criminally investigate or prosecute any alcohol or drug abuse patient.TrihealthIn the event this information is protected by the Federal Confidentiality of Alcohol and Drug Abuse Patient Records regulations: The Federal rules restrict any use of the information to criminally investigate or prosecute any alcohol or drug abuse patient.TrihealthIn the event this information is protected by the Federal Confidentiality of Alcohol and Drug Abuse Patient Records regulations: The Federal rules restrict any use of the information to criminally investigate or prosecute any alcohol or drug abuse patient.TrihealthIn the event this information is protected by the Federal Confidentiality of Alcohol and Drug Abuse Patient Records regulations: The Federal rules restrict any use of the information to criminally investigate or prosecute any alcohol or drug abuse patient.TrihealthIn the event this information is protected by the Federal Confidentiality of Alcohol and Drug Abuse Patient Records regulations: The Federal rules restrict any use of the information to criminally investigate or prosecute any alcohol or drug abuse patient.TrihealthIn the event this information is protected by the Federal Confidentiality of Alcohol and Drug Abuse Patient Records regulations: The Federal rules restrict any use of the information to criminally investigate or prosecute any alcohol or drug abuse patient.TrihealthIn the event this information is protected by the Federal Confidentiality of Alcohol and Drug Abuse Patient Records regulations: The Federal rules restrict any use of the information to criminally investigate or prosecute any alcohol or drug abuse patient.TrihealthIn the event this information is protected by the Federal Confidentiality of Alcohol and Drug Abuse Patient Records regulations: The Federal rules restrict any use of the information to criminally investigate or prosecute any alcohol or drug abuse patient.TrihealthIn the event this information is protected by the Federal Confidentiality of Alcohol and Drug Abuse Patient Records regulations: The Federal rules restrict any use of the information to criminally investigate or prosecute any alcohol or drug abuse patient.TrihealthIn the event this information is protected by the Federal Confidentiality of Alcohol and Drug Abuse Patient Records regulations: The Federal rules restrict any use of the information to criminally investigate or prosecute any alcohol or drug abuse patient.TrihealthIn the event this information is protected by the Federal Confidentiality of Alcohol and Drug Abuse Patient Records regulations: The Federal rules restrict any use of the information to criminally investigate or prosecute any alcohol or drug abuse patient.TrihealthIn the event this information is protected by the Federal Confidentiality of Alcohol and Drug Abuse Patient Records regulations: The Federal rules restrict any use of the information to criminally investigate or prosecute any alcohol or drug abuse patient.TrihealthIn the event this information is protected by the Federal Confidentiality of Alcohol and Drug Abuse Patient Records regulations: The Federal rules restrict any use of the information to criminally investigate or prosecute any alcohol or drug abuse patient.TrihealthIn the event this information is protected by the Federal Confidentiality of Alcohol and Drug Abuse Patient Records regulations: The Federal rules restrict any use of the information to criminally investigate or prosecute any alcohol or drug abuse patient.TrihealthIn the event this information is protected by the Federal Confidentiality of Alcohol and Drug Abuse Patient Records regulations: The Federal rules restrict any use of the information to criminally investigate or prosecute any alcohol or drug abuse patient.TrihealthIn the event this information is protected by the Federal Confidentiality of Alcohol and Drug Abuse Patient Records regulations: The Federal rules restrict any use of the information to criminally investigate or prosecute any alcohol or drug abuse patient.TrihealthIn the event this information is protected by the Federal Confidentiality of Alcohol and Drug Abuse Patient Records regulations: The Federal rules restrict any use of the information to criminally investigate or prosecute any alcohol or drug abuse patient.TrihealthIn the event this information is protected by the Federal Confidentiality of Alcohol and Drug Abuse Patient Records regulations: The Federal rules restrict any use of the information to criminally investigate or prosecute any alcohol or drug abuse patient.TrihealthIn the event this information is protected by the Federal Confidentiality of Alcohol and Drug Abuse Patient Records regulations: The Federal rules restrict any use of the information to criminally investigate or prosecute any alcohol or drug abuse patient.TrihealthIn the event this information is protected by the Federal Confidentiality of Alcohol and Drug Abuse Patient Records regulations: The Federal rules restrict any use of the information to criminally investigate or prosecute any alcohol or drug abuse patient.TrihealthIn the event this information is protected by the Federal Confidentiality of Alcohol and Drug Abuse Patient Records regulations: The Federal rules restrict any use of the information to criminally investigate or prosecute any alcohol or drug abuse patient.TrihealthIn the event this information is protected by the Federal Confidentiality of Alcohol and Drug Abuse Patient Records regulations: The Federal rules restrict any use of the information to criminally investigate or prosecute any alcohol or drug abuse patient.TrihealthIn the event this information is protected by the Federal Confidentiality of Alcohol and Drug Abuse Patient Records regulations: The Federal rules restrict any use of the information to criminally investigate or prosecute any alcohol or drug abuse patient.TrihealthIn the event this information is protected by the Federal Confidentiality of Alcohol and Drug Abuse Patient Records regulations: The Federal rules restrict any use of the information to criminally investigate or prosecute any alcohol or drug abuse patient.TrihealthIn the event this information is protected by the Federal Confidentiality of Alcohol and Drug Abuse Patient Records regulations: The Federal rules restrict any use of the information to criminally investigate or prosecute any alcohol or drug abuse patient.TrihealthIn the event this information is protected by the Federal Confidentiality of Alcohol and Drug Abuse Patient Records regulations: The Federal rules restrict any use of the information to criminally investigate or prosecute any alcohol or drug abuse patient.TrihealthIn the event this information is protected by the Federal Confidentiality of Alcohol and Drug Abuse Patient Records regulations: The Federal rules restrict any use of the information to criminally investigate or prosecute any alcohol or drug abuse patient.TrihealthIn the event this information is protected by the Federal Confidentiality of Alcohol and Drug Abuse Patient Records regulations: The Federal rules restrict any use of the information to criminally investigate or prosecute any alcohol or drug abuse patient.TrihealthIn the event this information is protected by the Federal Confidentiality of Alcohol and Drug Abuse Patient Records regulations: The Federal rules restrict any use of the information to criminally investigate or prosecute any alcohol or drug abuse patient.TrihealthIn the event this information is protected by the Federal Confidentiality of Alcohol and Drug Abuse Patient Records regulations: The Federal rules restrict any use of the information to criminally investigate or prosecute any alcohol or drug abuse patient.TrihealthIn the event this information is protected by the Federal Confidentiality of Alcohol and Drug Abuse Patient Records regulations: The Federal rules restrict any use of the information to criminally investigate or prosecute any alcohol or drug abuse patient.TrihealthIn the event this information is protected by the Federal Confidentiality of Alcohol and Drug Abuse Patient Records regulations: The Federal rules restrict any use of the information to criminally investigate or prosecute any alcohol or drug abuse patient.TrihealthIn the event this information is protected by the Federal Confidentiality of Alcohol and Drug Abuse Patient Records regulations: The Federal rules restrict any use of the information to criminally investigate or prosecute any alcohol or drug abuse patient.TrihealthIn the event this information is protected by the Federal Confidentiality of Alcohol and Drug Abuse Patient Records regulations: The Federal rules restrict any use of the information to criminally investigate or prosecute any alcohol or drug abuse patient.TrihealthIn the event this information is protected by the Federal Confidentiality of Alcohol and Drug Abuse Patient Records regulations: The Federal rules restrict any use of the information to criminally investigate or prosecute any alcohol or drug abuse patient.[facility] Care Teams (unrecognized sec tion and content) 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 Start Date End Date Clare Helma Gary [address] [place], [place] [id number] PCP - General Family Practice 09/25/19 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 Start Date End Date Johnmarysol Imani Vega [address] [place], [place] [address] PCP - General Family Practice 09/25/19 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 Start Date End Date Imani Helm [address] [place], [place] [id number] PCP - General Family Practice 09/25/19 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 Start Date End Date Johnmarysol Imani Vega [address] [place] [address] PCP - General Family Practice 09/25/19 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 Start Date End Date Johnmarysol Imani Vega [address] [place] [address] PCP - General Family Practice 09/25/19 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 Start Date End Date Imani Helm DO [address] [place], [place] [address] PCP - General Family Practice 09/25/19 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 Start Date End Date Imani Helm DO [address] [place], [place] [id number] PCP - General Family Practice 09/25/19 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 Start Date End Date Imani Helm DO [address] [place], [place] [id number] PCP - General Family Practice 09/25/19 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 Start Date End Date Imani Helm DO [address] [place], [place] [id number] PCP - General Family Practice 09/25/19 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 Start Date End Date Imani Helm DO [address] [place], [place] [id number] PCP - General Family Practice 09/25/19 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 Start Date End Date Imani Helm DO [address] [place], [place] [id number] PCP - General Family Practice 09/25/19 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 Start Date End Date Imani Helm DO [address] [place], [place] [id number] PCP - General Family Practice 09/25/19 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 Start Date End Date Imani Helm DO [address] [place] [address] PCP - General Family Practice 09/25/19 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 Start Date End Date Imani Helm DO PCP - General Family Medicine 09/25/19 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 Start Date End Date Imani Helm DO PCP - General Family Medicine 09/25/19 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 Start Date End Date Imani Helm DO PCP - General Family Medicine 09/25/19 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 Start Date End Date Imani Helm DO PCP - General Family Medicine 09/25/19 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 Start Date End Date Imani Helm DO PCP - General Family Medicine 09/25/19 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 Start Date End Date Imani Helm DO PCP - General Family Medicine 09/25/19 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 Start Date End Date Imani Helm DO PCP - General Family Medicine 09/25/19 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 Start Date End Date Imani Helm DO PCP - General Family Medicine 09/25/19 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 Start Date End Date Imani Helm DO PCP - General Family Medicine 09/25/19 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 Start Date End Date Imani Helm DO PCP - General Family Medicine 09/25/19 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 Start Date End Date Imani Helm DO PCP - General Family Medicine 09/25/19 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 Start Date End Date Imani Helm DO PCP - General Family Medicine 09/25/19 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 Start Date End Date Imani Helm DO PCP - General Family Medicine 09/25/19 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 Start Date End Date Imani Helm DO PCP - General Family Medicine 09/25/19 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 Start Date End Date Imani Helm DO PCP - General Family Medicine 09/25/19 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 Start Date End Date Imani Helm DO PCP - General Family Medicine 09/25/19 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 Start Date End Date Imani Helm DO PCP - General Family Medicine 09/25/19 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 Start Date End Date Imani Helm DO PCP - General Family Medicine 09/25/19 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 Start Date End Date Imani Helm DO PCP - General Family Medicine 09/25/19 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 Start Date End Date Imani Helm DO PCP - General Family Medicine 09/25/19 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 Start Date End Date Imani Helm DO PCP - General Family Medicine 09/25/19 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 Start Date End Date Imani Helm, DO PCP - General Family Medicine 09/25/19 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 Start Date End Date Imani Helm DO PCP - General Family Medicine 09/25/19 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 Start Date End Date Imani Helm DO PCP - General Family Medicine 09/25/19 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 Start Date End Date Imani Helm DO PCP - General Family Medicine 09/25/19 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 Start Date End Date Imani Helm DO PCP - General Family Medicine 09/25/19 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 Start Date End Date Imani Helm DO PCP - General Family Medicine 09/25/19 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 Start Date End Date Imani Helm DO PCP - General Family Medicine 09/25/19 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 Start Date End Date Imani Helm DO PCP - General Family Medicine 09/25/19 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 Start Date End Date Imani Helm DO PCP - General Family Medicine 09/25/19 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 Start Date End Date Imani Helm DO PCP - General Family Medicine 09/25/19 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 Start Date End Date Imani Helm [address] [place] [address] [address] [place], [place] [id number] PCP - General 07/26/20 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 Start Date End Date Imani Helm [address] [place] [address] 6 [place], [place] [address] PCP - General 07/26/20 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 Start Date End Date Imani Helm [address] [place] [address] 6 [place], [place] [address] PCP - General 07/26/20 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 Start Date End Date Imani Helm [address] [place] [address] [id number] PCP - General 07/26/20 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 Start Date End Date Imani Helm [address] [place] [address] [id number] PCP - General 07/26/20 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 Start Date End Date Imani Helm [address] [place] [address] 6 [place], [place] [id number] PCP - General 07/26/20 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 Imani Helm DO Primary Care Provider Active Start: November 18, 2024 End: November 18, 2024 Jesse Horvath TOOL CRIB ATTENDANT, TOOL CRIB ATTENDANT-C Attending Provider Active Start: November 18, 2024 End: November 18, 2024 Jesse Horvath TOOL CRIB ATTENDANT, TOOL CRIB ATTENDANT-C Referring Provider Active Start: November 18, 2024 [...] 2024 End: November 18, 2024 Jesse Horvath TOOL CRIB ATTENDANT, TOOL CRIB ATTENDANT-C Attending Provider Active Start: November 18, 2024 End: November 18, 2024 Team Status: Inactive Member Role/Relationship Status Dates Dr. 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 Imani Helm DO Primary Care Provider Active Start: November 18, 2024 End: November 18, 2024 Jesse Horvath TOOL CRIB ATTENDANT, TOOL CRIB ATTENDANT-C Attending Provider Active Start: November 18, 2024 End: November 18, 2024 Jesse Horvath TOOL CRIB ATTENDANT, TOOL CRIB ATTENDANT-C Referring Provider Active Start: November 18, 2024 [...] Procedures IVF #[place] [address] [address] i Verenice [facility] [address] [place] [id number] Referral ID Status Reason Start Date Expiration Date Visits Requested Visits Authorized [id number] Authorized Financial Clearance Required - Self Pay [...] Referred By Valarie santillan Referred To Contact [facility] Diagnoses FET package [place] [address] [place] [phone] [place] [address] Referral ID Status Reason Start Date Expiration Date Visits Requested Visits Authorized [id number] Authorized Financial Clearance Required - Self Pay Do Not Bill Insurance - SP patient Patient Cleared - True Self-Pay required payment collected Financial Clearance Not Required 01/13/2022 03/14/2022 99 99 Specialty Diagnoses / Procedures Referred By Valarie santillan Referred To Contact [facility] Diagnoses FET package [place] [address] [place] [address] [phone] [place] [address] Reason Comments Freda/forgot estrogen this morning Reason Comments ques on meds Reason Comments Patient Update Reason Comments Freda A / Lmp today please call pt Called Back Started period today , baselines Sunday? Specialty Diagnoses / Procedures Referred By Valarie t Referred To Contact [facility] Diagnoses Encounter for fertility testing Procedures FOLLICULAR [facility] US PELVIC NONOBSTETRIC IMAGE DCMTN LIMITED/F/U Stuart Guerrero APRN.AUTOMATION MACHINE OPERATOR [address] [place] [id number] [address] [place] [address] Referral ID Status Reason Start Date Expiration Date V isits Requested Visits Authorized [id number] Closed Auto-Generate d Referral 04/23/2022 06/17/2022 6 1 Reason Comments Freda Freda bleeding a lot this am/stopped inj Reason Comments Patient Question Reason Comments Cycle start 02/10 Reason Comments FET thaw plan called back about thaw plan Reason Comments Treatment Planning Specialty Diagnoses / Procedures Referred By [facility] Referred To Contact [facility] Diagnoses Female infertility, unspecified Procedures OFFICE/OUTPATIENT ESTABLISHED LOW MDM 20-29 [place] [address] [place] [phone] [facility] [address] [place] [address] [phone] Referral ID Status Reason Start Date Expiration Date Visits Requested Visits Authorized [id number] Authorized Benefit Check 05/03/2022 06/17/2022 5 5 Reason Comments Requires IVF Prior Authorization Reason Comments Did we get her FMLA paperwork Freda/ been bleeding for 13 days consistently light Just an FYI started Wellbutrin 2 weeks ago, can that affect her cycle? Reason Comments monitoring Specialty Diagnoses / Procedures Referred By [facility] Referred To Contact [facility] Diagnoses IVF #3 Restart Procedures IVF #3 [place] [address] [address] [facility] [address] [place] [id number] Reason Comments Infertility Specialty Diagnoses / Procedures Referred By [facility] Referred To Contact [facility] Diagnoses Female infertility Procedures FOLLICULAR US [facility] US PELVIC NONOBSTETRIC IMAGE DCMTN LIMITED/F/U Shelby Rojsa PA-C [address] [place] [address] [facility] [address] [place] [phone] Referral ID Status Reason Start Date Expiration Date V isits Requested Visits Authorized [id number] Closed Auto-Generate d Referral 07/05/2022 07/05/2023 6 6 Reason Comments Patient Update Reason Comments order injections Reason Comments Next Steps Reason Comments re medication/was it called in SEt up baseline for tomorrow at [facility] prefers between 7 and 8 am Specialty Diagnoses / Procedures Referred By Contac t Referred To Contact [facility] Diagnoses Female infertility Procedures FOLLICULAR US [facility] US PELVIC NONOBSTETRIC IMAGE DCMTN LIMITED/F/U Marina Boswell APRN.AUTOMATION MACHINE OPERATOR [address] [facility] [place] [address] [facility] [address] [place] [address] Referral ID Status Reason Start Date Expiration Date V isits Requested Visits Authorized [id number] Closed Auto-Generate d Referral 08/28/2022 08/28/2023 6 1 Specialty Diagnoses / Procedures Referred By Contac t Referred To Contact [facility] Diagnoses Female infertility, unspecified Procedures IVF PACKAGE IVF #4 [place] [address] [place] [address] Wh[address] Verenice [facility] [address] [place] [address] Referral ID Status Reason Start Date Expiration Date Visits Requested Visits Authorized [id number] Authorized Financial Clearance Required - Self Pay Do Not Bill Insurance - SP patient Financial Clearance Not Required Patient Cleared - True Self-Pay required payment collected 08/25/2022 11/23/2022 99 99 Reason Comments pt states meds are on back order Referral ID Status Reason Start Date Expiration Date Visits Requested Visits Authorized [id number] Authorized Auto-Generat ed Referral 11/14/2022 06/17/2023 6 [...] Abdomen - Supine Chaitanya Akins APN [address] [employer] [place] [address] Referral ID Status Reason Start Date Expiration Date V isits Requested Visits Authorized [id number] New Request 04/09/2024 1 1 Specialty Diagnoses / Procedures Referred By Contac t Referred To Contact RAD Interventional Diagnoses Anorectal malformation Procedures IR Cecostomy Exchange with Fluoro IR Consult Chaitanya Akins APN [address] [place] [address] Referral ID Status Reason Start Date Expiration Date V isits Requested Visits Authorized [id number] New Request 04/08/2024 1 1 Reason Onset Date Comments DME Prescription 04/13/2024 Reason Comments Anorectal Malformation Reason Comments Ultrasound Specialty Diagnoses / Procedures Referred By Contac t Referred To Contact Diagnoses Advanced maternal age, 1st , first trimester Procedures US OB DETAILED ANATOMY Raquel Lainez MD [address] [address] Phone: tel: fax: Referral ID Status Reason Start Date Expiration Date V isits Requested Visits Authorized [id number] New Request 11/06/2024 12/01/2025 1 1 Reason Comments Initial Visit Transfer OB Specialty Diagnoses / Procedures Referred By Contac t Referred To Contact Diagnoses Encounter for ultrasound to assess interval growth of fetus Encounter for follow-up ultrasound of anatomy Procedures US OB GROWTH/DATING > 14WEEKS Birgit Wood MD [address] [place] [address] [address] [place] [address] Phone: tel: fax: Referral ID Status Reason Start Date Expiration Date V isits Requested Visits Authorized [id number] New Request 12/30/2024 01/24/2026 1 1 Reason Comments New Patient Evaluation Specialty Diagnoses / Procedures Referred By Contac t Referred To Contact Echocardiology Diagnoses resulting from in vitro fertilization, antepartum Procedures ECHOCARDIOGRAM, Raquel Lainez MD [address] [facility] [address] [place] [address] Phone: tel: fax: Referral ID Status Reason Start Date Expiration Date Visits Re quested Visits Authorized [id number] Closed 02/18/2025 1 1 Reason Comments Routine [...] BE BASED ON THE PRIMARY CLINICAL RECORDS. [facility] [employer] provides no warranty or guarantee of the accuracy or completeness of information in this document.
--- NOTE | 2025-03-06 00:26 | ED.RN ---
REPORT CALLED TO [facility] NURSE [facility] AT THIS TIME. NO FURTHER QUESTIONS BY THE RECEIVING NURSE AT THIS TIME.
[2025-03-06] MEDS: Potassium Chloride 10mEq/100mL 10 MEQ/100 ML IV.SOLN. 100 MEQ IV BOLUS ×2 (01:06→07:25)
[2025-03-06] MEDS: Electrolyte Solution/Peg's 4000 ML PO (01:07)
[2025-03-06 06:24] LABS: Hematocrit 24.0 % (37-47); Hemoglobin 8.4 g/dL (12.0-15.0); Immature Granulocytes Count 0.060 X10^3/uL (0.0-0.0); Mean Corp Hgb Conc 35.0 g/dL (32-36); Mean Corpuscular Volume 90.9 fL (81-99); Mean Platelet Vol. 10.8 fl (6.2-12.0); NRBC Flagged by Analyzer 0 % (0-5); Platelet Count 205 K/mm3 (150-450); RBC Distribution Width CV 13.8 % (11.6-14.6); RBC Distribution Width SD 45.3 fl (35.1-43.9); Red Blood Count 2.64 M/mm3 (4.2-5.4); White Blood Count 10.2 K/mm3 (4.4-11.0)
[2025-03-06 06:42] LABS: AST(SGOT) 25 U/L (<=31); Alanine Aminotransfer ALT/SGPT 16 U/L (<=34); Albumin, Serum 3.2 g/dL (3.5-5.0); Alkaline Phosphatase 59 U/L (35-104); Anion Gap 12 (5-15); BUN 11 mg/dL (4-19); BUN/Creat Ratio 8.0 RATIO (10-20); Calcium,Total 7.9 mg/dL (7.6-11.0); Carbon Dioxide 19.7 mmol/L (21.0-32.0); Chloride 106 mmol/L (98-108); Estimated Creatinine Clearance 56.98 ml/min (50-250); Globulin 2.0 g/dL (2.2-4.2); Glucose 94 mg/dL (70-99); Potassium 3.0 mmol/L (3.3-5.1)
--- NOTE | 2025-03-06 08:17 | HP.PCM_ITS ---
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 has abdominal mace port in place). She is on a usual regimen at home to keep her bowels moving but for a week she has not been able to use the bathroom. CT shows the following: COMPARISON: Abdominal CT 01/03/2021. FINDINGS: Lung bases: Clear. Liver: Unremarkable. Gallbladder: Unremarkable. Spleen: Unremarkable. Pancreas: Unremarkable. Adrenals: Unremarkable. Kidneys/Bladder: Severe bilateral hydroureteronephrosis, likely related to compression at the ureterovesicular junctions due to . Urinary bladder is compressed anteriorly. There may also be a component of bladder outlet obstruction/urinary retention. Reproductive Organs: Gravid uterus with single intrauterine gestation. The placenta is posterior and low-lying and approaches the cervical region, and may have a component of placenta previa. Bowel: There is a Henson antegrade continence enema tube in place within the anterior cecum. No evidence of bowel obstruction or active inflammatory process. Large colonic stool burden suggesting constipation. Appendix not definitively identified but there are no pericecal inflammatory changes. Lymph nodes: No enlarged abdominopelvic lymph nodes. Vasculature: Normal course and caliber of the abdominal aorta. Peritoneum / Retroperitoneum: No drainable ascites or free air. Bones: No significant abnormality. CT/Abdomen/Pelvis W IV Cont ONLY IMPRESSION: 1. Gravid uterus, single intrauterine gestation reportedly aged 28 weeks. Notably the placenta is posterior and low-lying approaching the cervical region, and there may be a component of placenta pr evia. This can be further evaluated on routine ultrasound. 2. Severe bilateral hydroureteronephrosis likely secondary to reflux or compression at the ureterovesicular junctions due to . Urinary bladder is compressed anteriorly. 3. Constipation. MACE tube within the cecum. No evidence of bowel obstruction. Due to these findings the decision was made to admit her for a golytely regimen, however she had started this and is about retirement through when she noticed leaking through her mace tube and more severe pain. She is requesting that we contact her colorectal surgeon, Assessment & Plan Assessment/Plan (1) Congenital abnormality: (2) : (3) Constipation: (4) Abdominal pain: (5) Abnormal glucose complicating : (6) ARM (anorectal malformation): (7) Spotting affecting in first trimester: (8) UTI (urinary tract infection) during : (9) Advanced maternal age (AMA) in : (10) : QUALIFIERS: Weeks of gestation: 26 weeks Qualified Code(s): Z3A.26 - 26 weeks gestation of (11) Supervision of high-risk : QUALIFIERS: Trimester: first trimester Qualified Code(s): O09.91 - Supervision of high risk , unspecified, first trimester (12) History of miscarriage, currently : (13) Hx of maternal blood transfusion, currently : (14) Hypothyroidism affecting : QUALIFIERS: Trimester: first trimester Qualified Code(s): O99.281 - Endocrine, nutritional and metabolic diseases complicating , first trimester; E03.9 - Hypothyroidism, unspecified (15) Anxiety and depression: (16) In vitro fertilization: (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
--- NOTE | 2025-03-06 08:45 | HP.PCM.OB_ITS ---
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 has abdominal mace port in place). She is on a usual regimen at home to keep her bowels moving but for a week she has not been able to use the bathroom. CT shows the following: COMPARISON: Abdominal CT 01/03/2021. FINDINGS: Lung bases: Clear. Liver: Unremarkable. Gallbladder: Unremarkable. Spleen: Unremarkable. Pancreas: Unremarkable. Adrenals: Unremarkable. Kidneys/Bladder: Severe bilateral hydroureteronephrosis, likely related to compression at the ureterovesicular junctions due to . Urinary bladder is compressed anteriorly. There may also be a component of bladder outlet obstruction/urinary retention. Reproductive Organs: Gravid uterus with single intrauterine gestation. The placenta is posterior and low-lying and approaches the cervical region, and may have a component of placenta previa. Bowel: There is a Henson antegrade continence enema tube in place within the anterior cecum. No evidence of bowel obstruction or active inflammatory process. Large colonic stool burden suggesting constipation. Appendix not definitively identified but there are no pericecal inflammatory changes. Lymph nodes: No enlarged abdominopelvic lymph nodes. Vasculature: Normal course and caliber of the abdominal aorta. Peritoneum / Retroperitoneum: No drainable ascites or free air. Bones: No significant abnormality. CT/Abdomen/Pelvis W IV Cont ONLY IMPRESSION: 1. Gravid uterus, single intrauterine gestation reportedly aged 28 weeks. Notably the placenta is posterior and low-lying approaching the cervical region, and there may be a component of placenta previa. This can be further evaluated on routine ultrasound. 2. Severe bilateral hydroureteronephrosis likely secondary to reflux or compression at the ureterovesicular junctions due to . Urinary bladder is compressed anteriorly. 3. Constipation. MACE tube within the cecum. No evidence of bowel obstruction. Due to these findings the decision was made to admit her for a golytely regimen, however she had started this and is about custodial through when she noticed leaking through her mace tube and more severe pain. She is requesting that we contact her colorectal surgeon, Dr. Marylou Wilson for more recommendations. Dr. Lazar, our [facility] GI doctor believes she is going to require a disimpaction but does not recommend performing this procedure here. Maternal Data Information WES Calculator Estimated Delivery Date Method Current WG Current Estimate 05/27/25 Conception 28w 2d [facility] Medical History History of ESBL E. 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 Route DAILY 10/14/24 Unknown History mL rectal solution through stoma with 10 ml liq uid castile soap multivitamin no.47-iron fum 27 1 cap PO QHS 10/14/24 U nknown History mg-folate no.1 1 mg-dha 300 mg capsule (PNV-DHA) levothyroxine 62.5 mcg capsule 62.5 mcg PO QDAY #30 ca ps 11/03/24 Unknown Rx sulfamethoxazole 800 1 tab PO QDAY URINARY TRACT 11/24/24 Unknown Rx mg-trimethoprim 160 mg tablet INFECTION #30 tabs (Bactrim DS) famotidine 20 mg tablet (Pepcid) 20 mg PO BID #60 tabs 02/19/25 Unknown Rx dextroamphetamine-amphetamine 20 1 tab PO BID 03/06/25 Unknown History mg tablet multivitamin (Daily Multi-Vitamin 1 tab PO DAILY 03/06 Unknown History tablet) Allergy/AdvReac Type Severity Reaction Status Date / Time ampicillin Allergy Hives Verified 03/05/25 21:08 Family History Grandfather Cancer, Onset Age: 55 Paternal lung cancer then mets to throat cancer- smoking Father Diabetes Uncle Multiple sclerosis paternal Mother Lymphedema Grandfather Lymphedema Maternal Surgical History Previous back surgery History of rectal surgery H/O cervical polypectomy History of tubal ligation Social History adopted: No household members: spouse housing: house current occupational status: unemployed current occupational exposures/hazards: No pets and animals: Yes pets and animals: dog(s) history of recent travel: Yes (- June) out of state: Yes out of country: Yes sexually active: Yes Smoking Status: Never smoker alcohol intake: current alcohol intake frequency: a few times a month details: not while substance use type: does not use well-balanced diet: daily or most days caffeine: No eating out: 1-3 times/week during the past year weight has: remained stable what type of physical activity do you participate in: walking and other details: pilates frequency: 3-4 times per week duration: 15-30 minutes/day sotero/evangelical: None seatbelt use: always do you feel safe at home: Yes 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 Date Name GA/Weeks Outcome Route Bth Weight Infant Gen Labor Lgth Anesthesia Del Locatn Provider FOB Unknown February 25, 2024 4 spontaneous Delivery Date: Last Updated by: Ginny Mcintyre failed IVF transfer Visit Details Expected Delivery Route/Plan requests primary section Plans Covid status: [] Flu vaccine: [] Tdap vaccine: [] Rhogam: [] LARC form signed: [] Problem list reviewed and updated with the most current plan of care details and appropriate orders placed. Relevant counseling for the gestational age provided. Continue routine care and follow up unless otherwise noted in visit notes/problem list details OB Flowsheet Initial Weight: Not Recorded Date -?-?-?-?-?-?-?-?-?-?-?-?- EGA Weight BP Urine Prot -?-?-?-?-?-?-?-?-?-?-?-?- Glucose FHR FuHt Pres Dilation -?-?-?-?-?-?-?-?-?-?-?-?- Effaced St Visit Note 10/24/24 -?-?-?-?-?-?-?-?-?-?-?-?- 9w 2d 166 lb 4 oz 111/65 -?-?-?-?-?-?-?-?-?-?--?-?- 185 -?-?-?-?-?-?-?-?-?-?-?-?- JV- crl measurin g 9 weeks 2 days and consistent with day 6 embryo transfer. see HPI for details on visit today. Wants to return in 1 week for heart beat check 10/30/24 -?-?-?-?-?-?-?-?-?-?-?-?- 10w 1d 165 lb 4 oz 116/70 Nega tive -?-?-?-?-?-?-?-?-?-?-?-?- Negative 150 -?-?-?-?-?-?-?-?-?-?-?-?- SM- no vb crampi ng 11/13/24 -?-?-?-?-?-?-?-?-?-?-?-?- 12w 1d 167 lb 2 oz 109/64 -?-?-?-?-?-?-?-?-?-?-?-?- 160 -?-?-?-?-?-?-?-?-?-?-?-?- SM- no vb lof lozano ving burning on urination after interoucrse only. some loss of taste and her tongue hurts, no significant whitening of tongue yet. SM- no vb lof crmaping, stop ping hormones. plan CL screening at 16-17 weeks. some dizziness 11/18/24 -?-?-?-?-?-?-?-?-?-?-?-?- 12w 6d 171 lb 126/75 Negative -?-?-?-?-?-?-?-?-?-?-?-?- Negative -?-?-?-?-?-?-?-?-?-?-?-?- -nurse visit t o rule out UA prior to US today for back discomfort and cramping. UA negative. 11/26/24 -?-?-?-?-?-?-?-?-?-?-?-?- 14w 0d 172 lb 109/73 Negative -?-?-?-?-?-?-?-?-?-?-?-?- Negative 160 -?-?-?-?-?-?-?-?-?-?-?-?- JV- patient was reassured by mfm of the bleeding she had. They thought withdrawal bleeding from the non- side of the uterus. She is no longer bleeding. still wants to follow up with [facility] when viable because that is where her GI doc lives. 12/24/24 -?-?-?-?-?-?-?-?-?-?-?-?- 18w 0d 171 lb 123/73 Negative -?-?-?-?-?-?-?-?-?-?-?-?- Negative 154 -?-?-?-?-?-?-?-?-?-?-?-?- JV- patient is n ow needing to self cath as is unable to void at all. She is also needing to flush her Kenyatta catheter periodically due to constipation. She will see MFM in 2 weeks at [facility]. JV- patient is now needing t o self cath as is unable to void at all. She is also needing to flush her abdominal catheter periodically due to constipation. She will see MFM in 2 weeks at [facility]. 01/20/25 -?-?-?-?-?-?-?-?-?-?-?-?- 21w 6d 177 lb 3 oz 113/68 Nega tive -?-?-?-?-?-?-?-?-?-?-?-?- Negative 150 -?-?-?-?-?-?-?-?-?-?-?-?- JV- anatomy scan done at [facility] still not in chart. will ask to sign ror or long into clinisync for it. her last visit with us kevin be feb 18. No complaints other than stretching of her abdomen where her scar tissue is. 02/19/25 -?-?-?-?-?-?-?-?-?-?-?-?- 26w 1d 177 lb 3 oz 135/77 Nega tive -?-?-?-?-?-?-?-?-?-?-?-?- Negative 150 26 -?-?-?-?-?-?-?-?-?-?-?-?- SM- no vb lof go od fm no regular ctx, this is the last appointment before her transfer of care, pepcid started NST FHR Rate Baby A Baseline: 140 Variability:: Moderate Accelerations:: 15 x 15 and 10 x 10 Decelerations:: None NST Reactive:: Yes FHR Category:: Category I Uterine Activity:: no contractions ROS Constitutional Constitutional: Denies fever(s) or weakness Eyes Eyes: Denies change in vision ENT HEENT: Denies dizziness Cardiovascular Cardiovascular: Denies chest pain, dyspnea, lightheadedness, palpitations or syncope Respiratory/Chest Respiratory/Chest: Denies cough or dyspnea Gastrointestinal Gastrointestinal: Reports bloating, constipation, cramping, nausea, vomiting and other Details: mace tube leaking. passed gas x 2 since around 3 am Genitourinary Genitourinary: Denies burning urination or dysuria Musculoskeletal Musculoskeletal: Denies back pain or myalgias Integumentary Integumentary: Denies pruritus or rash Psychiatric Psychiatric: Denies anxiety or depression Endocrine Endocrinology: Denies cold intolerance or excessive sweating Hematologic/Lymphatic Hematologic/Lymphatic: Denies anemia, easy bleeding or easy bruising Vital Signs Vital Signs Vital Signs: 03/05/25 21:04 03/05/25 23:02 03/06/25 00:12 Temperature 98.5 F 97.8 F Temperature Source Oral Pulse Rate 102 H 70 88 Respiratory Rate 20 H 14 13 Blood Pressure 132/85 H 118/70 112/68 Blood Pressure Mean 100 86 82 BP Systolic BP Diastolic Pulse Ox 100 99 99 Oxygen Delivery Method Room Air Room Air 03/06/25 01:08 03/06/25 01:08 03/06/25 01:08 Temperature Temperature Source Pulse Rate 86 93 Respiratory Rate Blood Pressure 119/73 Blood Pressure Mean BP Systolic 119 BP Diastolic 73 Pulse Ox Oxygen Delivery Method 03/06/25 01:08 03/06/25 01:08 03/06/25 01:08 Temperature Temperature Source Temporal Pulse Rate Respiratory Rate 14 Blood Pressure Blood Pressure Mean BP Systolic BP Diastolic Pulse Ox 97 Oxygen Delivery Method 03/06/25 01:08 03/06/25 04:33 03/06/25 04:33 Temperature 97.9 F Temperature Source Pulse Rate 76 Respiratory Rate Blood Pressure 118/69 Blood Pressure Mean BP Systolic 118 BP Diastolic 69 Pulse Ox Oxygen Delivery Method 03/06/25 07:47 03/06/25 07:47 03/06/25 07:52 Temperature Temperature Source Pulse Rate 85 80 Respiratory Rate Blood Pressure Blood Pressure Mean BP Systolic BP Diastolic Pulse Ox 98 Oxygen Delivery Method 03/06/25 07:52 03/06/25 07:54 03/06/25 07:54 Temperature Temperature Source Pulse Rate 90 Respiratory Rate Blood Pressure 108/57 L Blood Pressure Mean BP Systolic 108 BP Diastolic 57 Pulse Ox 97 Oxygen Delivery Method 03/06/25 07:58 03/06/25 07:58 Temperature Temperature Source Pulse Rate 88 Respiratory Rate Blood Pressure 101/62 Blood Pressure Mean BP Systolic 101 BP Diastolic 62 Pulse Ox Oxygen Delivery Method Weight Weight: 179 lb 0.246 oz Body Mass Index (BMI) 30.7 Physical Exam Const alert, oriented x3 and no apparent distress HEENT normocephalic Eyes PERRL Neck full ROM Chest inspection of chest normal Resp normal respiratory effort Cardio regular rate GI GI Narrative: gravid uterus, mace tube is leaking green/brown fluid and some solid material as well. She is tender with guarding. Extremity normal to inspection Skin no rashes or lesions noted Labs Labs Labs: Blood Type O POSITIVE Antibody Screen NEGATIVE Hct, (37-47) 24.0 % L Hgb, (12.0-15.0) 8.4 g/dL L Obstetrics Ultrasound Syphilis Total Ab, (Nonreactive) Nonreactive Rubella IgG Antibody, (Nonreactive) REAC Hep Bs Antigen, (Nonreactive) Nonreactive Hepatitis C Antibody, (Nonreactive) Nonreactive Chlamydia DNA (MONICA), (Negative) Negative N.gonorrhoeae DNA ([place]ICA), (Negative) Negative HIV 1&2 Antibody, (Nonreactive) Nonreactive Glucose 1 Hr 50 gm, (70-140) 152 mg/dL H Gest Glucose Tolerance mg/dL Assessment & Plan (1) Placenta previa: (2) Congenital abnormality: (3) : (4) Constipation: (5) Abdominal pain: (6) Abnormal glucose complicating : COMMENT: Normal 3 hr (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 has abdominal port in place. has undergone several bowel surgeries since . (8) Spotting affecting in first trimester: COMMENT: TVUS (9) UTI (urinary tract infection) during : COMMENT: abx sent-2nd one this . 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) (13) History of miscarriage, currently : COMMENT: first IVF attempt failed (14) Hx of maternal blood transfusion, currently : COMMENT: childhood surgery transfusion (15) Hypothyroidism affecting : QUALIFIERS: Trimester: first trimester Qualified Code(s): O99.281 - Endocrine, nutritional and metabolic diseases complicating , first trimester; E03.9 - Hypothyroidism, unspecified (16) Anxiety and depression: (17) In vitro fertilization: COMMENT: donor egg (18) Didelphic uterus in : QUALIFIERS: Trimester: first trimester Qualified Code(s): O34.591 - Maternal care for other abnormalities of gravid uterus, first trimester; Q51.28 - Other and unspecified doubling of uterus COMMENT: needs cervical lengths. (19) Rectal atresia: (20) Recto-vaginal fistula: (21) Congenital duplication of vagina: COMMENT: DOC ONLY (22) Tethered cord: COMMENT: Pt has a history of tethered cord: d/w pt need for an anesthesia consult to assess for regional anesthesia at the time of delivery--determine whether anesthesia would want any recent imaging of her spine to assess feasibility. PLAN: Plan Discussed with Dr. Lazar here (GI) and he does not recommend that we attempt treatment here based on her multiple complications. Attempting to call [facility] for transport replacing potassium now stop golytely as is not helping and seems to be making her feel worse morphine for pain Charges/Coding Visit Charges OBSV E&M: [id number] Observ/hosp same date L3
[2025-03-06 09:23] LABS: Mucous, Urine 0 SEEN /hpf (<or=2+); Red Blood Cells-Urine 0 SEEN /hpf (0-5)
[2025-03-06 09:25] LABS: Color, Urine Yellow (Yellow); Glucose, Dipstick Normal (Normal); Ketone-Dipstick 5 mg/dl (Negative); Leukocyte Esterase-Dipstick 25 /ul (Negative); Nitrite-Dipstick Negative (Negative); Occult Blood-Urine Negative /ul (Negative); Protein-Dipstick 15 mg/dl (Negative); Specific Gravity, Urine 1.005 (1.002-1.030); Urine Bilirubin Dipstick Negative (Negative)
[2025-03-06] MEDS: Potassium Chloride 10mEq/100mL 10 MEQ/100 ML IV.SOLN. 50 MEQ IV BOLUS (09:37)
[2025-03-06] MEDS: 0.9% Normal Saline (1000mL) 1,000 ML 100 ML IV (09:41)
[2025-03-06 09:46] LABS: Squamous Epithelial Cells - UA 0-5 SEEN /hpf (5-10)
[2025-03-06] MEDS: Mineral Oil 1 BOTTLE ENEMA 118 ML RC ×2 (10:44→12:02)
--- NOTE | 2025-03-06 12:11 | NURSING ---
2 fleets enema's and 2 mineral oil enemas given 20 min apart alternating. no stool results. pt has little anal tone and unable to hold enema liquid well.
== END 2025-03-06 21:23 | disposition short-term general hospital (02) ==
LOC: ED 03-06 00:01 → WP 03-06 07:55 → MS3 03-06 10:28
PROVIDERS: Admitting Provider Obstetrics & Gynecology; Emergency Provider Emergency Medicine; PCP Family Medicine; Visit Provider Obstetrics & Gynecology
DX: O99.613 Diseases of the digestive system complicating pregnancy, third trimester (principal); O09.523 Supervision of elderly multigravida, third trimester; O23.43 Unspecified infection of urinary tract in pregnancy, third trimester; F41.9 Anxiety disorder, unspecified; Z3A.28 28 weeks gestation of pregnancy; O99.283 Endocrine, nutritional and metabolic diseases complicating pregnancy, third trimester; O44.03 Complete placenta previa NOS or without hemorrhage, third trimester; O99.343 Other mental disorders complicating pregnancy, third trimester; K59.00 Constipation, unspecified; E03.9 Hypothyroidism, unspecified; O09.813 Supervision of pregnancy resulting from assisted reproductive technology, third trimester; Z79.82 Long term (current) use of aspirin; O99.810 Abnormal glucose complicating pregnancy; O99.891 Other specified diseases and conditions complicating pregnancy; O34.03 Maternal care for unspecified congenital malformation of uterus, third trimester; O34.63 Maternal care for abnormality of vagina, third trimester; O34.43 Maternal care for other abnormalities of cervix, third trimester
CPT/HCPCS: 59025; 59050; 74018; 74177; 80053; 81001; 83690; 85025; 87077; 87086; 87088; 87186; 96361; 96365; 96366; 96375; 96376; 99221; 99284; Q9967; A4216; G0378; J2405

== ENCOUNTER → 2025-03-23 | Outpatient (CLI) | payer BC, SELFPAY ==
[2025-03-23 13:09] LABS: Anion Gap 16 (5-15); BUN 17 mg/dL (4-19); BUN/Creat Ratio 9.9 RATIO (10-20); Calcium,Total 8.7 mg/dL (7.6-11.0); Carbon Dioxide 17.7 mmol/L (21.0-32.0); Chloride 106 mmol/L (98-108); Glucose 113 mg/dL (70-99); Potassium 3.5 mmol/L (3.3-5.1)
== END | disposition home or self-care (01) ==
PROVIDERS: PCP Family Medicine
DX: N13.30 Unspecified hydronephrosis (principal)
CPT/HCPCS: 36415; 80048

== ENCOUNTER → 2025-05-21 | Outpatient (CLI) | payer BC, SELFPAY ==
[2025-05-21 11:58] LABS: Anion Gap 11 (5-15); BUN 19 mg/dL (4-19); BUN/Creat Ratio 16.6 RATIO (10-20); Calcium,Total 9.4 mg/dL (7.6-11.0); Carbon Dioxide 24.5 mmol/L (21.0-32.0); Chloride 103 mmol/L (98-108); Glucose 80 mg/dL (70-99); Potassium 4.5 mmol/L (3.3-5.1)
== END | disposition home or self-care (01) ==
LOC: LAB 10:17
PROVIDERS: PCP Family Medicine
DX: N13.39 Other hydronephrosis (principal)
CPT/HCPCS: 36415; 80048